=== PATIENT | female | born 1955 | race African-American/Black ===

== ENCOUNTER 2024-09-09 13:32 | Emergency (ER) | payer MEDICARE, MEDICAID ==
[~2024-09-09] VITALS: Ht 157.5 cm; Wt 51.7 kg
[~2024-09-09 13:32] MED LIST: PHEN100C
--- NOTE | 2024-09-09 14:08 | ED.PDOC ---
History of Present Illness(SKN HPI Comments 68y F who presents to the ED via EMS for chief complaint of rash. -pt states she has been having rash on the L side of her chest with associated rash spreading to the L arm since last night PM -pt states the area of rash is itchy but otherwise denies shortness of breath, chest pain, diaphoresis, palpitations or any associated symptoms -pt otherwise able to speak in full sentences and no noted respiratory distress -pt otherwise denies any other symptoms at this time PMH: HTN, COPD on 02 ,ESRD on dialysis PSH: denies allergies: nkda medications: unknown social history: denies EToH use, active tobacco use, denies drug use. HPI: Poor Historian. REVIEW OF SYSTEMS: CONSTITUTIONAL: Denies acute: fever, diaphoresis, chills, generalized weakness. HEAD: Denies acute: headache, photophobia Eyes: Denies acute: Double vision, vision loss, eye pain, eye discharge. EARS: Denies acute: tinnitus, hearing loss, ear discharge, ear pain, THROAT: Denies acute: sore throat, swelling, difficulty swallowing , pain with swallowing, change in voice. NECK: Denies acute: neck pain, neck swelling, stiff neck. HEART: Denies acute : chest pain, palpitations, LUNGS: Denies acute: SOB, wheezing, cough, hemoptysis ABDOMEN: Denies acute: abdominal pain, Nausea, Vomiting, diarrhea, melena , hematemesis, hematochezia SKIN: Denies acute: redness, EXTREMITIES: Denies acute: calf pain, numbness, tingling, weakness, denies pain in extremity. Denies acute: Low back pain. Neuro: Denies acute: focal neurological deficit, motor or sensory focal neurological deficit, tremors, seizure like activity, confusion, dizziness, change in mental status, loss of bowel or bladder function, cauda equina like symptoms. : Denies acute: dysuria, hematuria, flank pain, increase in urinary frequency. PSYCH: Denies acute: hallucination, suicidal ideation, homicidal ideation. FEMALE: Denies acute: abnormal vaginal bleeding, foul odor, unusual discharge. PHYSICAL EXAM: General: -----while---acute distress, awake and alert. Head: normocephalic, atraumatic. Neck: supple, trachea is midline, no swelling. Throat: Normal phonation. Eyes:, no erythema, no purulent discharge, no proptosis, no icterus. Heart: regular rate, regular rhythm, no significant murmur appreciated. Lungs: no apparent respiratory distress, Able to speak in full sentences. No wheezing, no rhonchi, no crackles. No stridors Clear to auscultation bilaterally. Abdomen: non tender to palpation, non distended, soft, no guarding, no rebound, + bowel sounds. Neuro: Awake, Alert, oriented to name, self, situation, follows commands GCS=15. Speech is normal. Skin: no petechia, no purpura, no cyanosis, non-pale, not jaundice. Evaluation of the lesions that she is concerned about. There is noted left chest wall lesions consistent with shingles that is tender to palpation. No purulent discharge. Some lesions are also present in the medial aspect of left upper extremity. Some of the lesions are scabbing. Lower extremities: --no - Pitting edema no deformity, no focal swelling, no calf TTP. Makes eye contact. moves all four extremities. Face: no apparent facial droop. Ambulating in the ED independently. No nystagmus. No nuchal rigidity, Kernig's sign, Brudzinski's sign, no meningeal signs. 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, Medications, Allergies Allergies: Coded Allergies: NO KNOWN ALLERGIES (Unverified , 08/05/11) Home Meds Active Scripts Valacyclovir HCl (Valacyclovir HCl) 1 Gm Tab, 1 GM PO TID for 7 Days, #21 TAB Prov:VENU MORSE DO 09/09/24 Reported Medications Phenytoin Sodium (Dilantin) 100 Mg Cap 08/05/11 Information Source: Patient, Emergency Med Personnel Mode of Arrival: EMS Brought in by: EMS Past Medical History PAST MEDICAL HISTORY: ESRD, Seizures Surgical History: Denies all surgeries NEUROLOGY TEACHER History: No Pertinent NEUROLOGY TEACHER History Family History Family History: No family hx of DM, No family hx of Heart charlene Social History Smoker: Less Than 1 Pack/Day Alcohol: Other Drugs: Denies Drug Use Lives In: Home Was a procedure done? Was a procedure done?: No Differential Diagnosis (INTG) Differential Diagnosis: Abscess, AIDS/HIV, Anthrax(Cutaneous), Atopic dermatitis, Candidiasis, Cellulitis, Contact Dermatitis, Drug Reaction, Erythema multiforme, Erysipelas, Gangrene, Herpes Zoster/Simplex, Hidradenitis suppurativa, Impetigo, Intertrigo, Lyme disease, Molluscum contagiosum, Osteomyelitis, Pediculosis (lice), Pityriasis rosea, Psoriasis, RMSF, Rosacea, Scabies, Scarlet Fever, Tinea, Urticaria, Varicella, Viral exanthema X-Ray, Labs, Meds, VS Vital Signs Date Time Temp Pulse Resp B/P (MAP) Pulse Ox O2 Delivery O2 Flow Rate FiO2 09/09/24 19:27 97.9 72 16 135/72 (93) 95 97.9 09/09/24 19:20 Nasal Cannula* 2 28 09/09/24 17:45 97.9 57 18 107/66 (80) 96 97.9 09/09/24 16:26 58 Lab Test 09/09/24 16:10 Range/Units White Blood Count 4.5 4.4-10.8 10^3/uL Red Blood Count 3.75 L 4.0-5.20 10^6/uL Hemoglobin 11.0 L 12.2-16.2 g/dL Hematocrit 32.4 L 36.0-46.0 % Mean Corpuscular Volume 86.3 80.0-100.0 fL Mean Corpuscular Hemoglobin 29.2 28.0-32.0 pg Mean Corpuscular Hemoglobin Concent 33.9 32.0-36.0 g/dL Red Cell Distribution Width 15.9 H 11.8-14.3 % Platelet Count 172 140-450 10^3/uL Mean Platelet Volume 8.6 6.9-10.8 fL Neutrophils (%) (Auto) 52.5 37.0-80.0 % Lymphocytes (%) (Auto) 23.2 10.0-50.0 % Monocytes (%) (Auto) 14.2 H 0.0-12.0 % Eosinophils (%) (Auto) 8.3 H 0.0-7.0 % Basophils (%) (Auto) 1.8 0.0-2.0 % Neutrophils # (Auto) 2.4 1.6-8.6 10 ^3/uL Lymphocytes # (Auto) 1.1 0.4-5.4 10 ^3/uL Monocytes # (Auto) 0.6 0-1.3 10 ^3/uL Eosinophils # (Auto) 0.4 0-0.8 10 ^3/uL Basophils # (Auto) 0.1 0-0.2 10 ^3/uL Nucleated Red Blood Cells 0.6 % Erythrocyte Sedimentation Rate 72 H 0-20 mm/hr Sodium Level 136 136-145 mmol/L Potassium Level 3.7 3.5-5.1 mmol/L Chloride Level 92 L 98-107 mmol/L Carbon Dioxide Level 34 H 20-31 mmol/L Anion Gap 10 5-15 Blood Urea Nitrogen 22 9-23 mg/dL Creatinine 6.14 H 0.550-1.02 mg/dL Glomerular Filtration Rate Calc 7 >90 mL/min BUN/Creatinine Ratio 3.6 L 10.0-20.0 Serum Glucose 86 74-106 mg/dL Lactic Acid Level 0.8 0.4-2.0 mmol/L Calcium Level 10.3 8.7-10.4 mg/dL Total Bilirubin 0.5 0.2-1.0 mg/dL Aspartate Amino Transferase (AST) 76 H 13-40 U/L Alanine Aminotransferase (ALT) 43 H 7-40 U/L Alkaline Phosphatase 177 H 46-116 U/L C-Reactive Protein High Sensitivity 0.69 <1.0 mg/dL Total Protein 9.5 H 5.7-8.2 g/dL Albumin 4.1 3.2-4.8 g/dL Time of 1ST Reevaluation: 16:43 (All labs are still pending. Patient was a hard stick.) Reevaluation 1ST: Unchanged Patient Education/Counseling: Diagnosis, Treatment Family Education/Counseling: No Family Present Comments Patient presented with the above HPI.----rash--workup was initiated. patient was found with the above mentioned diagnosis. the following medications were ordered: please refer to order lists of meds and tests obtained by myself Dr. Morse. Patient ED course and VS have been stabilized. Patient has been reassessed in the ED and remained in a stable condition. Pertinent incidental findings were discussed with the patient and/or family. Patient/family voices understanding and is agreeable with plan. Patient has been observed in the ED adequate length of time to insure improvement/stability. Escalation of care considered: Consideration of escalation to observation or admission Patient was DISCHARGED home in a stable condition. All the reports of any imaging studies that were ordered by myself were reviewed by myself. Departure 1 Departure Time of Disposition: 17:16 Impression: Primary Impression: Shingles Additional Impression: ESRD on dialysis Disposition: HOME / SELF CARE / HOMELESS Condition: Stable Additional Instructions: Additional instructions: You MUST follow-up with your primary care/family doctor in 1 to 2 days. If you are unable to see your primary care/family doctor, please return to our emergency room for re-assessment and re-evaluation in 1 to 2 days. Return to the emergency room here in our facility or to the nearest ER [facility] if your symptoms change or worsen. CONSULTATIONS: you MUST Follow-up for consultation as soon as possible with: dermatology in 1-2 days. Please call for appointment You MUST call the consultants office yourself to make an appointment. You may need to arrange that through your insurance and/or your primary/family doctor. If you are unable to see the organizational consultant in 1 to 2 days, you must return to our emergency room (or any other ER of your choice) for re-assessment and re-evalu ation. Adequate fluid hydration. You are contagious. Please exercise caution. Keep the scabs and lesions covered at all times. e-Prescriptions Valacyclovir HCl (Valacyclovir HCl) 1 Gm Tab 1 GM PO TID for 7 Days, #21 TAB Prov: VENU MORSE DO 09/09/24 Discharged With: Self Critical Care Note Critical Care Time?: No I personally scribed for VENU MORSE DO ([email or web address]) on 09/09/24 at 14:08. Electronically submitted by Davonte SHEN). VENU MORSE DO September 09, 2024 14:08
[2024-09-09 16:21] LABS: Basophils # (auto) 0.1 10 ^3/uL (0-0.2); Basophils % (auto) 1.8 % (0.0-2.0); Eosinophils # (auto) 0.4 10 ^3/uL (0-0.8); Eosinophils % (auto) 8.3 % (0.0-7.0); Hematocrit 32.4 % (36.0-46.0); Lymphocytes # (auto) 1.1 10 ^3/uL (0.4-5.4); Lymphocytes % (auto) 23.2 % (10.0-50.0); Mean Corpuscular Hemoglobin 29.2 pg (28.0-32.0); Mean Corpuscular Hgb Conc. 33.9 g/dL (32.0-36.0); Mean Corpuscular Volume 86.3 fL (80.0-100.0); Monocytes # (auto) 0.6 10 ^3/uL (0-1.3); Monocytes % (auto) 14.2 % (0.0-12.0); Neutrophils # (auto) 2.4 10 ^3/uL (1.6-8.6); Neutrophils % (auto) 52.5 % (37.0-80.0); Nucleated Red Blood Cells % 0.6 %; Platelet Count (auto) 172 10^3/uL (140-450); Red Blood Cells 3.75 10^6/uL (4.0-5.20); Red Cell Distribution Width 15.9 % (11.8-14.3); White Blood Cell 4.5 10^3/uL (4.4-10.8)
[2024-09-09 16:39] LABS: Albumin 4.1 g/dL (3.2-4.8); Anion Gap 10 (5-15); BUN/Creatinine Ratio 3.6 (10.0-20.0); Blood Urea Nitrogen 22 mg/dL (9-23); CRP High Sensitivity 0.69 mg/dL (<1.0); Calcium 10.3 mg/dL (8.7-10.4); Glucose 86 mg/dL (74-106); Potassium 3.7 mmol/L (3.5-5.1)
[2024-09-09 16:40] LABS: Alanine Aminotransferase 43 U/L (7-40); Alkaline Phosphatase 177 U/L (46-116); Aspartate Aminotransferase 76 U/L (13-40); Bilirubin, Total 0.5 mg/dL (0.2-1.0); Carbon Dioxide 34 mmol/L (20-31); Chloride 92 mmol/L (98-107); Sodium 136 mmol/L (136-145); Total Protein 9.5 g/dL (5.7-8.2)
[2024-09-09 16:55] LABS: Erythrocyte Sedimentation Rate 72 mm/hr (0-20)
--- NOTE | 2024-09-09 18:28 | ECG ---
[facility] Test Date: 2024-09-09 Test Time: 16:14:14 Pat Name: SUNIL CHAVES Department: ED Room: Gender: F Shipwright Helper: PHILIPP : 1955 Requested By: VENU BETTENCOURT Order Number: [id number] Reading MD: Augustin Arauz Measurements Intervals [place] Rate: 58 P: 35 [place]: 168 QRS: 0 QRSD: 122 T: 0 QT: 525 QTc: 516 Interpretive Statements Sinus rhythm Probable left atrial enlargement Left ventricular hypertrophy Nonspecific T abnormalities, anterior leads Prolonged QT interval Electronically Signed On 09-10-2024 9:21:13 PDT by Augustin Arauz Please click the below link to view image of tracing.
[2024-09-09] MEDS ORDERED: VALA1TAB34 PO (19:06)
[2024-09-09 19:27] VITALS: BP 135/72; PULSE 72; RESP 16; TEMP 97.9; O2SAT 95
== END 2024-09-09 19:30 | disposition home or self-care (01) ==
LOC: EDBD 13:32 → ER 13:45
DX: I12.0 Hypertensive chronic kidney disease with stage 5 chronic kidney disease or end stage renal disease (principal); N18.6 End stage renal disease; B02.9 Zoster without complications; J44.9 Chronic obstructive pulmonary disease, unspecified; F17.210 Nicotine dependence, cigarettes, uncomplicated; Z79.624 Long term (current) use of inhibitors of nucleotide synthesis; Z99.2 Dependence on renal dialysis
CPT/HCPCS: 36415; 80053; 83605; 85025; 85652; 86141; 93005

== ENCOUNTER 2024-09-11 11:45 | Inpatient (IN) | payer MEDICARE, MEDICAID ==
[~2024-09-11] VITALS: Ht 162.6 cm; Wt 68.0 kg
[~2024-09-11 11:45] MED LIST changes: +VALA1TAB34 PO
--- NOTE | 2024-09-11 12:06 | ED.PDOC ---
Altered Mental Status HPI Comments 68 year old female JEAN-CLAUDE presents to the ED with chief complaint of ALOC. EMS reports that the patient was found by family this morning to be altered and having visual hallucinations, seeing people that aren't present. EMS relays that the last known well was last night. EMS states that the patient was seen on 09/09 for shingles of the left arm. EMS notes that patient has history of seizure with her taking her Keppra this morning. Patient reports that she may have had a seizure this morning and she is aware she had some hallucinations. Patient denies any fever, chills, chest pain, SOB, dizziness, headache, or head injury. Time Seen by MD: 11:57 Primary Care Provider: AMANDA Shepard Notes: Nurses Notes, Row Boss Hoeing Notes, Medications, Allergies Allergies: Coded Allergies: NO KNOWN ALLERGIES (Unverified , 08/05/11) Home Meds Active Scripts Valacyclovir HCl (Valacyclovir HCl) 1 Gm Tab, 1 GM PO TID for 7 Days, #21 TAB Prov:VENU BETTENCOURT DO 09/09/24 Reported Medications Phenytoin Sodium (Dilantin) 100 Mg Cap 08/05/11 Information Source: Patient, Emergency Med Personnel Mode of Arrival: EMS Severity: Moderate Timing: Hours Duration: Since onset Prehospital treatment: None Quality: Change in Behavior Recent: Other (Shingles) History of: Seizure Past Medical History PAST MEDICAL HISTORY: ESRD, HTN, Seizures Surgical History: Denies all surgeries 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 WRAPPING MACHINE 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 History: No Pertinent CANDLE WRAPPING MACHINE OPERATOR History Family History Family History: No family hx of DM, No family hx of Heart charlene Social History Smoker: Less Than 1 Pack/Day Alcohol: Other Drugs: Denies Drug Use Lives In: Home Constitutional: denies: chills, diaphoresis, fatigue, fever, malaise, sweats, weakness, others EENTM: denies: blurred vision, double vision, ear bleeding, ear discharge, ear drainage, ear pain, ear ringing, eye pain, eye redness, hearing loss, mouth pain, mouth swelling, nasal discharge, nose bleeding, nose congestion, nose pain , photophobia, tearing, throat pain, throat swelling, voice changes, others Respiratory: denies: cough, hemoptysis, orthopnea, SOB at rest, shortness of breath, SOB with excertion, stridor, wheezing, others Cardiovascular: denies: chest pain, dizzy spells, diaphoresis, Dyspnea on exertion, edema, irregular heart beat, left arm pain, lightheadedness, palpitations, PND, syncope, others Gastrointestinal: denies: abdomen distended, abdominal pain, blood streaked bowels, constipated, diarrhea, dysphagia, difficulty swallowing, hematemesis, melena, nausea, poor appetite, poor fluid intake, rectal bleeding, rectal pain, vomiting, others Genitourinary: denies: abnormal vagina bleeding, burning, dyspareunia, dysuria, flank pain, frequency, hematuria, incontinence, pain, , vagina discharge, urgency, others Neurological: denies: dizziness, fainting, headache, left sided numbness, left sided weakness, numbness, paresthesia, pre-existing deficit, right sided numbness, right sided weakness, seizure, speech problems, tingling, tremors, weakness, others Musculoskeletal: denies: back pain, gout, joint pain, joint swelling, muscle pain, muscle stiffness, neck pain, others Integumetry: denies: bruises, change in color, change in hair/nails, dryness, laceration, lesions, lumps, rash, wounds, others Allergic/Immunocompromised: denies: Difficulty Healing, Frequent Infections, Hives, Itching, others Hematologic/Lymphatic: denies: anemia, blood clots, easy bleeding, easy bruising, swollen glands, others Endocrine: denies: excessive hunger, excessive sweating, excessive thirst, excessive urination, flushing, intolerance to cold, intolerance to heat, unexplained weight gain, unexplained weight loss, others Psychiatric: reports: others (Hallucinations); denies: anxiety, bipolar disorder, depression, hopeless, panic disorder, schizophrenia, sleepless, suicidal All Other Systems: Reviewed and Negative Physical Exam General Appearance: No Apparent Distress, Normal HEENT: Normal ENT Inspection, Pharynx Normal, TMs Normal Neck: Full Range of Motion, Non-Tender, Normal, Normal Inspection Respiratory: Chest Non-Tender, Lungs Clear, No Accessory Muscle Use, No Res piratory Distress, Normal Breath Sounds Cardiovascular: No Edema, No JVD, No Murmur, No Gallop, Normal Peripheral Pulses, Regular Rate/Rhythm Breast Exam: Deferred Gastrointestinal: No Organomegaly, Non Tender, No Pulsatile Mass, Normal Bowel Sounds, Soft Genitalia: Deferred Pelvic: Deferred Rectal: Deferred Extremities: No calf tenderness, Normal capillary refill, Normal inspection, Normal range of motion, Non-tender, No pedal edema, Other (Right forearm intact AV Fistula) Musculoskeletal : Apperance: Normal Neurologic: Alert, miscellaneous machine operator II-XII nml as Tested, No Motor Deficits, Normal Affect, Normal Mood, No Sensory Deficits, Other (No Nuchal rigidity, Kernig and Brudzinski sign negative, no photophobia, no active hallucinations, A/O and cooperative, ) Cerebellar Function: Normal Reflexes: Normal Skin: Dry, Normal Color, Warm, Other (Crop of blisters noted to extensor surface of left forearm) Lymphatic: No Adenopathy Was a procedure done? Was a procedure done?: No Differential Diagnosis (ALOC) Differential Diagnosis: Dehydration, Hypoglycemia, DKA, Encephalopathy, Meningitis, Sepsis, Hypoxemia, Seizure, CVA, Mass Lesion, SAH, Drug Overdose, ETOH Intoxication, Renal Failure, Other (postictal state) X-Ray, Labs, Meds, VS Vital Signs Date Time Temp Pulse Resp B/P (MAP) Pulse Ox O2 Delivery O2 Flow Rate FiO2 09/11/24 12:10 76 09/11/24 12:10 98.9 82 26 178/102 (127) 100 98.9 Lab Test 09/11/24 13:35 Range/Units White Blood Count 6.0 # 4.4-10.8 10^3/uL Red Blood Count 3.41 L 4.0-5.20 10^6/uL Hemoglobin 10.2 L 12.2-16.2 g/dL Hematocrit 29.5 L 36.0-46.0 % Mean Corpuscular Volume 86.6 80.0-100.0 fL Mean Corpuscular Hemoglobin 29.9 28.0-32.0 pg Mean Corpuscular Hemoglobin Concent 34.6 32.0-36.0 g/dL Red Cell Distribution Width 16.2 H 11.8-14.3 % Platelet Count 75 L 140-450 10^3/uL Mean Platelet Volume 8.4 6.9-10.8 fL Neutrophils (%) (Auto) 60.7 37.0-80.0 % Lymphocytes (%) (Auto) 22.1 10.0-50.0 % Monocytes (%) (Auto) 12.3 H 0.0-12.0 % Eosinophils (%) (Auto) 3.7 0.0-7.0 % Basophils (%) (Auto) 1.2 0.0-2.0 % Neutrophils # (Auto) 3.6 1.6-8.6 10 ^3/uL Lymphocytes # (Auto) 1.3 0.4-5.4 10 ^3/uL Monocytes # (Auto) 0.7 0-1.3 10 ^3/uL Eosinophils # (Auto) 0.2 0-0.8 10 ^3/uL Basophils # (Auto) 0.1 0-0.2 10 ^3/uL Nucleated Red Blood Cells 0.5 % Sodium Level 135 L 136-145 mmol/L Potassium Level 3.6 3.5-5.1 mmol/L Chloride Level 96 L 98-107 mmol/L Carbon Dioxide Level 30 20-31 mmol/L Anion Gap 9 5-15 Blood Urea Nitrogen 20 9-23 mg/dL Creatinine 5.37 H 0.550-1.02 mg/dL Glomerular Filtration Rate Calc 8 >90 mL/min BUN/Creatinine Ratio 3.7 L 10.0-20.0 Serum Glucose 107 H 74-106 mg/dL Calcium Level 9.8 8.7-10.4 mg/dL Total Bilirubin 0.6 0.2-1.0 mg/dL Aspartate Amino Transferase (AST) 76 H 13-40 U/L Alanine Aminotransferase (ALT) 39 7-40 U/L Alkaline Phosphatase 167 H 46-116 U/L Troponin I High Sensitivity 24 </=34 ng/L Total Protein 9.0 H 5.7-8.2 g/dL Albumin 3.9 3.2-4.8 g/dL Time of 1ST Reevaluation: 12:57 Reevaluation 1ST: Unchanged Patient Education/Counseling: Diagnosis, Treatment, Prognosis, Need For Follow Up Family Education/Counseling: No Family Present Additional Information Previous visits: 09/09/24 for shingles The following tests were ordered, and results were reviewed by me: CBC, CMP, UA, Chest XR, Head CT, UDS, Accucheck, EKG, Troponin Additional Information was gathered from interviewing the following independent historians: EMS I reviewed and agreed with the following test results read by other providers: Chest XR, Head CT I discussed treatment and results with medical personnel and: patient Comprehensive systems review obtained and negative except for what is stated in the HPI. pt does not have meningismus, and ct is unremarkable. she is not hypoglycemic. pt may have had a seizure with postictal state. although she is improved, she is still mildly confused. she will be admitted for further monitoring for the cause of the change of mental state Departure 1 Departure Time of Disposition: 14:46 Impression: Primary Impression: Metabolic encephalopathy Additional Impression: ESRF (end stage renal failure) Disposition: ADMITTED INPATIENT Admit to: Med Surg Condition: Serious Discharged With: Self Critical Care Note Critical Care Time?: Yes (55 min-critical care time only) Critical care comment: Due to concerns for patient�s condition deteriorating, the care required my highest level of attention and readiness to intervene. I assessed the patient, reviewed the medical records, ordered the appropriate tests and treatments, then reassessed for results and responsiveness. I communicated with medical personnel and consultants and formulated a plan of care. Total critical care time excludes any procedures Stability Stability form required: No Heart Score Heart Score: Heart Score Response (Comments) Value History N/A 0 EKG N/A 0 Age N/A 0 Risk Factors N/A 0 Troponin N/A 0 Total 0 I personally scribed for MARK LOWERY MD ([email or web address]) on 09/11/24 at 12:06. Electronically submitted by Cristian Carbajal ([email or web address]). MARK LOWERY MD September 11, 2024 12:06
--- NOTE | 2024-09-11 12:30 | DVH ---
CHEST RADIOGRAPH Indication: altered Technique: Single frontal view of the chest was obtained COMPARISON: None FINDINGS: Lines and Tubes: None Lungs: Increased interstitial markings both lung bases Pulmonary vascular redistribution Pleura: No effusion. No pneumothorax. Cardiomediastinal contours: Moderately severe cardiomegaly Bones: Unremarkable IMPRESSION: 1. Moderately severe cardiomegaly 2. Moderate bilateral interstitial changes Pulmonary vascular redistribution
--- NOTE | 2024-09-11 13:02 | DVH ---
EXAM: CT HEAD WITHOUT CONTRAST INDICATION: altered TECHNIQUE: CT of the head without intravenous contrast. Radiation Dose : 1. Head: CT Dose: CTDI volume is 50.87 mGy. Dose-length product is 900.9 mGy*cm The dose indicators for CT are the volume Computed Tomography (CT) Dose Index (CTDIvol) and the Dose Length Product (DLP), and are measured in units of mGy and mGy-cm, respectively. These indicators are not patient dose, but values generated from the CT scanner acquisition factors. The report includes radiation exposure data for exposures received during this examination. COMPARISON: None FINDINGS: Moderate cerebellar atrophy relative to the supratentorial structures. Findings may be related to Dil antin, alcohol or other etiologies. There is no evidence of acute intracranial hemorrhage, extra-axial collection, mass effect, midline s hift, herniation or hydrocephalus. The ventricles, sulci and cisterns are age appropriate. The perez-white differentiation is intact. Patchy periventricular and subcortical white matter hypoattenuation is nonspecific but may be related to small vessel ischemic disease. The visualized paranasal sinuses and mastoid air cells are clear. The surrounding soft tissues and osseous structures are unremarkable. IMPRESSION: 1. Moderate cerebellar atrophy. Radiation optimization: All CT scans at this facility use at least one of these dose optimization juan hniques: automated exposure control mA and/or kV adjustment per patient size (includes targeted exam s where dose is matched to clinical indication) or iterative reconstruction.
[2024-09-11 13:44] LABS: Basophils # (auto) 0.1 10 ^3/uL (0-0.2); Basophils % (auto) 1.2 % (0.0-2.0); Eosinophils # (auto) 0.2 10 ^3/uL (0-0.8); Eosinophils % (auto) 3.7 % (0.0-7.0); Hematocrit 29.5 % (36.0-46.0); Hemoglobin 10.2 g/dL (12.2-16.2); Lymphocytes # (auto) 1.3 10 ^3/uL (0.4-5.4); Lymphocytes % (auto) 22.1 % (10.0-50.0); Mean Corpuscular Hemoglobin 29.9 pg (28.0-32.0); Mean Corpuscular Hgb Conc. 34.6 g/dL (32.0-36.0); Mean Corpuscular Volume 86.6 fL (80.0-100.0); Monocytes # (auto) 0.7 10 ^3/uL (0-1.3); Monocytes % (auto) 12.3 % (0.0-12.0); Neutrophils # (auto) 3.6 10 ^3/uL (1.6-8.6); Neutrophils % (auto) 60.7 % (37.0-80.0); Nucleated Red Blood Cells % 0.5 %; Platelet Count (auto) 75 10^3/uL (140-450); Red Blood Cells 3.41 10^6/uL (4.0-5.20); Red Cell Distribution Width 16.2 % (11.8-14.3)
[2024-09-11 13:59] LABS: Alanine Aminotransferase 39 U/L (7-40); Albumin 3.9 g/dL (3.2-4.8); Anion Gap 9 (5-15); BUN/Creatinine Ratio 3.7 (10.0-20.0); Bilirubin, Total 0.6 mg/dL (0.2-1.0); Blood Urea Nitrogen 20 mg/dL (9-23); Calcium 9.8 mg/dL (8.7-10.4); Carbon Dioxide 30 mmol/L (20-31); Potassium 3.6 mmol/L (3.5-5.1)
[2024-09-11 14:00] LABS: Alkaline Phosphatase 167 U/L (46-116); Aspartate Aminotransferase 76 U/L (13-40); Chloride 96 mmol/L (98-107); Glucose 107 mg/dL (74-106); Sodium 135 mmol/L (136-145)
--- NOTE | 2024-09-11 18:07 | ECG ---
[facility] Test Date: 2024-09-11 Test Time: 12:10:05 Pat Name: SUNIL CHAVES Department: ED Room: [address] [place] [address] Gender: F Tufter Hand: ER : 1955 Requested By: MARK LOWERY Order Number: [id number] Reading MD: Augustin Arauz Measurements Intervals [place] Rate: 76 P: 24 [place]: 165 QRS: -5 QRSD: 154 T: 16 QT: 449 QTc: 505 Interpretive Statements Sinus rhythm Probable left atrial enlargement Left ventricular hypertrophy Prolonged QT interval Electronically Signed On 09-16-2024 20:29:21 PDT by Augustin Arauz Please click the below link to view image of tracing.
[2024-09-11 19:21] VITALS: PULSE 83; RESP 23; O2SAT 93
[2024-09-11] MEDS ORDERED: ONDANSETRON HCL 4 MG/2 ML VIAL IV PRN (19:45)
[2024-09-11] MEDS ORDERED: DOCUSATE SOD 100 MG CAP PO PRN (19:45)
[2024-09-11] MEDS ORDERED: ACETAMINOPHEN 325 MG TAB PO PRN (19:45)
[2024-09-11] MEDS ORDERED: MORPHINE SULFATE INJ 2 MG/ml SYRG IV PRN (21:15)
[2024-09-11] MEDS ORDERED: NITROGLYCERIN 0.4 MG SL TAB SL PRN (21:15)
--- NOTE | 2024-09-11 21:15 | DVHHP2 ---
History of Present Illness Reason for Visit: Metabolic encephalopathy History of Present Illness The patient is a 68-year-old female with past medical history of end-stage renal disease, hypertension, and seizures who presented to [facility] ED for evaluation of altered level of consciousness. As reported by EMS, patient was found by family altered and having visual hallucinations; seen people that are not present. Patient reports that she may have had a seizure this morning and she is aware she had some hallucinations. Patient was seen and evaluated in the ED, laboratory data shows WBC 6.0, hemoglobin 10.2, hematocrit 29.5, platelets 83947, sodium 135, potassium 3.6, BUN 20, creatinine 5.37, glucose 107, AST 76, ALT 39, troponin 24, protein 9.0, blood pressure 188/96 trending down to 131/83, heart rate 77, temperature 97.6� F, O2 saturation 96% on oxygen. Please see medication orders section in the computer. On my assessment, patient remains altered, no dizziness, no palpitation, no shortness a breath, no nausea, no vomiting, no fever, no chills. Patient was admitted for further evaluation and medical management. Past Medical History ESRD, HTN, Seizures Past Surgical History Denies all surgeries Family History Reviewed, noncontributory to the management of this case. Past Social History The patient lives at home, denies smoking, alcohol or illicit drugs abuse. Review of Systems Constitutional: Yes: Weakness; No: Fever, Chills, Sweats, Malaise, Other Eyes: No: Pain, Vision change, Conjunctivae inflammation, Eyelid inflammation, Other, Redness ENT: No: Ear pain, Ear discharge, Nose pain, Nose discharge, Nose congestion, Mouth pain, Mouth swelling, Throat pain, Throat swelling, Other Respiratory: No: Cough, Dry, Shortness of breath, SOB with excertion, Wheezing, Hemoptysis, Pleuritic Pain, Sputum, Wheezing, Other Cardiovascular: No: Chest Pain, Palpitations, Orthopnea, Paroxysmal Noc. Dyspnea, Edema, Lt Headedness, Other Gastrointestinal: No: Nausea, Vomiting, Abdominal Pain, Diarrhea, Constipation, Melena, Hematochezia, Other Genitourinary: No Dysuria, No Frequency, No Incontinence, No Hematuria, No Retention, No Other Musculoskeletal: No: other, neck pain, shoulder pain, arm pain, back pain, hand pain, leg pain, foot pain Skin: No: Rash, Lesions, Jaundice, Bruising, Other Neurological: Confusion; No: Weakness, Numbness, Incoordination, Change in speech, Seizures, Other Allergies: Coded Allergies: NO KNOWN ALLERGIES (Unverified , 08/05/11) Medications Current Medications Medications Dose Ordered Sig/Maru Route Start Time Stop Time Status Last Admin Dose Admin Phenytoin Sodium 100 mg Q8HR PO 09/11/24 22:00 Hydralazine HCl 10 mg Q6HP PRN IV 09/11/24 19:45 Sodium Chloride 1,000 ml @ 60 mls/hr [id number] IV 09/11/24 19:45 Acetaminophen/ Hydrocodone Bitart 1 tab Q4HP PRN PO 09/11/24 19:45 Ondansetron HCl 4 mg Q4HP PRN IV 09/11/24 19:45 Docusate Sodium 100 mg BIDPRN PRN PO 09/11/24 19:45 Acetaminophen 650 mg Q6HP PRN PO 09/11/24 19:45 Exam Vital Signs Vital Signs Date Time Temp Pulse Resp B/P (MAP) Pulse Ox O2 Delivery O2 Flow Rate FiO2 09/11/24 19:21 97.6 83 23 169/76 (107) 93 97.6 09/11/24 15:32 Nasal Cannula* 3 32 General Appearance: Alert, Oriented X3, Cooperative, No acute distress HEENT: Atraumatic, PERRLA, EOMI, Mucous membr. moist/pink Respiratory: Clear to auscultation, Normal air movement Cardiovascular: Regular rate, Normal S1, Normal S2, No murmurs Abdominal: Normal bowel sounds, Soft, No tenderness, No hepatospenomegaly, No masses Extremities: No clubbing, No cyanosis, No edema, Normal pulses, No tenderness/swelling Skin: No rashes, No breakdown, No significant lesion Neuro: Normal tone, Sensation intact, Cranial nerves 3-12 NL, Reflexes 2+, Other (Weakness) Psych/Mental Status: Mood NL, Other (Altered mental status) Labs/Xrays Labs Test 09/11/24 18:26 09/11/24 13:35 Range/Units Troponin I High Sensitivity 24 </=34 ng/L White Blood Count 6.0 # 4.4-10.8 10^3/uL Red Blood Count 3.41 L 4.0-5.20 10^6/uL Hemoglobin 10.2 L 12.2-16.2 g/dL Hematocrit 29.5 L 36.0-46.0 % Mean Corpuscular Volume 86.6 80.0-100.0 fL Mean Corpuscular Hemoglobin 29.9 28.0-32.0 pg Mean Corpuscular Hemoglobin Concent 34.6 32.0-36.0 g/dL Red Cell Distribution Width 16.2 H 11.8-14.3 % Platelet Count 75 L 140-450 10^3/uL Mean Platelet Volume 8.4 6.9-10.8 fL Neutrophils (%) (Auto) 60.7 37.0-80.0 % Lymphocytes (%) (Auto) 22.1 10.0-50.0 % Monocytes (%) (Auto) 12.3 H 0.0-12.0 % Eosinophils (%) (Auto) 3.7 0.0-7.0 % Basophils (%) (Auto) 1.2 0.0-2.0 % Neutrophils # (Auto) 3.6 1.6-8.6 10 ^3/uL Lymphocytes # (Auto) 1.3 0.4-5.4 10 ^3/uL Monocytes # (Auto) 0.7 0-1.3 10 ^3/uL Eosinophils # (Auto) 0.2 0-0.8 10 ^3/uL Basophils # (Auto) 0.1 0-0.2 10 ^3/uL Nucleated Red Blood Cells 0.5 % Sodium Level 135 L 136-145 mmol/L Potassium Level 3.6 3.5-5.1 mmol/L Chloride Level 96 L 98-107 mmol/L Carbon Dioxide Level 30 20-31 mmol/L Anion Gap 9 5-15 Blood Urea Nitrogen 20 9-23 mg/dL Creatinine 5.37 H 0.550-1.02 mg/dL Glomerular Filtration Rate Calc 8 >90 mL/min BUN/Creatinine Ratio 3.7 L 10.0-20.0 Serum Glucose 107 H 74-106 mg/dL Calcium Level 9.8 8.7-10.4 mg/dL Total Bilirubin 0.6 0.2-1.0 mg/dL Aspartate Amino Transferase (AST) 76 H 13-40 U/L Alanine Aminotransferase (ALT) 39 7-40 U/L Alkaline Phosphatase 167 H 46-116 U/L Total Protein 9.0 H 5.7-8.2 g/dL Albumin 3.9 3.2-4.8 g/dL PATIENT: SUNIL CHAVES ACCT: [id number] UNIT: [id number] : 1955 LOC: ER ROOM / BED: / AGE / SEX: 68 / F ADM STATUS: REG ER SERVICE 1159 ORDERING PHYSICIAN: MARK LOWERY MD PROCEDURE(s): HWOCT - HEAD WITHOUT CONTRAST REASON: altered ORDER NUMBER(s): [id number], ACCESSION NUMBER(s): [id number] EXAM: CT HEAD WITHOUT CONTRAST INDICATION: altered TECHNIQUE: CT of the head without intravenous contrast. Radiation Dose : 1. Head: CT Dose: CTDI volume is 50.87 mGy. Dose-length product is 900.9 mGy*cm The dose indicators for CT are the volume Computed Tomography (CT) Dose Index (CTDIvol) and the Dose Length Product (DLP), and are measured in units of mGy and mGy-cm, respectively. These indicators are not patient dose, but values generated from the CT scanner acquisition factors. The report includes radiation exposure data for exposures received during this examination. COMPARISON: None FINDINGS: Moderate cerebellar atrophy relative to the supratentorial structures. Findings may be related to Dilantin, alcohol or other etiologies. There is no evidence of acute intracranial hemorrhage, extra-axial collection, mass effect, midline shift, herniation or hydrocephalus. The ventricles, sulci and cisterns are age appropriate. The perez-white differentiation is intact. Patchy periventricular and subcortical white matter hypoattenuation is nonspecific but may be related to small vessel ischemic disease. The visualized paranasal sinuses and mastoid air cells are clear. The surrounding soft tissues and osseous structures are unremarkable. IMPRESSION: 1. Moderate cerebellar atrophy. ORDERING PHYSICIAN: MARK LOWERY MD PROCEDURE(s): CXRP - CHEST PORTABLE REASON: altered ORDER NUMBER(s): [id number], ACCESSION NUMBER(s): [id number] CHEST RADIOGRAPH Indication: altered Technique: Single frontal view of the chest was obtained COMPARISON: None FINDINGS: Lines and Tubes: None Lungs: Increased interstitial markings both lung bases Pulmonary vascular redistribution Pleura: No effusion. No pneumothorax. Cardiomediastinal contours: Moderately severe cardiomegaly Bones: Unremarkable IMPRESSION: 1. Moderately severe cardiomegaly 2. Moderate bilateral interstitial changes Pulmonary vascular redistribution Assessment/Plan Assessment/Plan Metabolic encephalopathy ESRD (end stage renal failure) Generalized weakness Plan 1. Admit to telemetry unit 2. Breathing treatment 3. Pain control management 4. Management of fluids and electrolytes 5. Consultation for hospitalist/nephrology 6. Diagnostic tests chest x-ray 7. DVT prophylaxis on SCDs 8. Repeat labs CBC, CMP in a.m. 9. Continue with current medical management 10. Treatment plan discussed with patient and RN. Patient verbalized understanding. Plan discussed with: Patient, Other (RN) My Orders Orders - FAZAL MARCOS DNP Procedure Category Date Status Time Phenytoin Capsule PHA 09/11/24 In Process (Dilantin Capsule) 22:00 Hydralazine Injection PHA 09/11/24 In Process (Apresoline Inject 19:45 *[facility] CONS 09/11/24 Transmitted -[place] 19:40 Allergies MELLY 09/11/24 In Process 19:40 Code Status CODE 09/11/24 Transmitted 19:40 Sodium Chloride 0.9% PHA 09/11/24 In Process 19:45 Oxygen Per Hour RT 09/11/24 Transmitted 19:40 Hydrocodone-Acet PHA 09/11/24 In Process 5/325mg Tab (Stacy 19:45 Ondansetron Hcl PHA 09/11/24 In Process (Zofran) 19:45 Docusate Sodium PHA 09/11/24 In Process Capsule (Colace 19:45 Fall Risk Precautions MELLY 09/11/[address] 19:40 Complete Blood Count LAB 09/12/24 Verified 04:00 Comprehensive LAB 09/12/24 Verified Metabolic Panel 04:00 Cardiac DIET 09/12/24 Transmitted Diet-2gna,Lofat,Lochol Breakfast Condition: Serious MELLY 09/11/24 In Process 19:40 Acetaminophen Tablet PHA 09/11/24 In Process (Tylenol Tablet) 19:45 Sequential MELLY 09/11/24 In Process Compression Device Admit ADMIT 09/11/24 Verified 21:14 Nitroglycerin PHA 09/11/24 Verified Sublingual (Ntrostat 21:15 Morphine Sulfate PHA 09/11/24 Verified Injection 21:15 Notify Of Changes MELLY 09/11/24 Verified From Base 21:14 Finished Goods Inspector For MELLY 09/11/24 Verified 24 Hours 21:14 Emergency Dysrhythmia [facility] 09/11/24 Verified Protocol 21:14 Rhythm Strips Once [facility] 09/11/24 Verified Every Shift 21:14 Oxygen By Nasal RT 09/11/24 Verified Cannula 21:14 Problem List: (1) Metabolic encephalopathy (2) ESRD on dialysis (3) Generalized weakness Date of Service: September 11, 2024 Billing Provider: FAZAL MARCOS DNP Common Visit Codes: [id number] INP/OBS CARE (HIGH) FAZAL MARCOS DNP September 11, 2024 21:15
[2024-09-11] MEDS: HALOPERIDOL LACTATE 5 MG/ML INJ VIAL IM ONE (21:16)
[2024-09-11] MEDS: HALOPERIDOL LACTATE 5 MG/ML INJ VIAL ONE (21:16)
[2024-09-11] MEDS ORDERED: LORazepam 0.5 MG TAB PO PRN (22:00)
[2024-09-11] MEDS ORDERED: PHENYTOIN SODIUM 100 MG CAP PO SCH (22:00)
[2024-09-11] MEDS: LORazepam 2MG/ML-1ML VIAL IM ONE (22:08)
[2024-09-11] MEDS: hydrALAZINE HCL 20 MG/ML VL IV PRN (23:05)
[2024-09-11] MEDS: PHENYTOIN SODIUM 50 MG/ML 2ML VIAL IV SCH (23:22)
[2024-09-11] MEDS: SODIUM CHLORIDE 0.9% 1,000 ML IV SCH (23:22)
[2024-09-12 06:14] LABS: Basophils # (auto) 0 10 ^3/uL (0-0.2); Basophils % (auto) 0.9 % (0.0-2.0); Eosinophils # (auto) 0.1 10 ^3/uL (0-0.8); Eosinophils % (auto) 2.1 % (0.0-7.0); Hematocrit 29.1 % (36.0-46.0); Hemoglobin 9.9 g/dL (12.2-16.2); Lymphocytes # (auto) 0.5 10 ^3/uL (0.4-5.4); Lymphocytes % (auto) 11.7 % (10.0-50.0); Mean Corpuscular Hemoglobin 29.6 pg (28.0-32.0); Mean Corpuscular Hgb Conc. 34.2 g/dL (32.0-36.0); Mean Corpuscular Volume 86.7 fL (80.0-100.0); Monocytes # (auto) 0.4 10 ^3/uL (0-1.3); Monocytes % (auto) 9.8 % (0.0-12.0); Neutrophils % (auto) 75.5 % (37.0-80.0); Nucleated Red Blood Cells % 0.5 %; Platelet Count (auto) 160 10^3/uL (140-450); Red Blood Cells 3.36 10^6/uL (4.0-5.20)
[2024-09-12 06:31] LABS: Alanine Aminotransferase 30 U/L (7-40); Albumin 3.4 g/dL (3.2-4.8); Anion Gap 10 (5-15); BUN/Creatinine Ratio 4.4 (10.0-20.0); Calcium 9.7 mg/dL (8.7-10.4); Carbon Dioxide 30 mmol/L (20-31); Glucose 101 mg/dL (74-106); Sodium 138 mmol/L (136-145); Total Protein 8.1 g/dL (5.7-8.2)
[2024-09-12 06:32] LABS: Alkaline Phosphatase 143 U/L (46-116); Aspartate Aminotransferase 67 U/L (13-40); Bilirubin, Total 0.6 mg/dL (0.2-1.0); Blood Urea Nitrogen 28 mg/dL (9-23); Chloride 98 mmol/L (98-107); Potassium 3.3 mmol/L (3.5-5.1)
[2024-09-12 09:50] LABS: Base Excess 6.7 mmol/L (-2.0-3.0)
--- NOTE | 2024-09-12 13:30 | DVHINCON2 ---
Date of service: September 12, 2024 Referring Physician Zehra Michelle Reason for Consultation Dialysis History of Present Illness 68 Y/O F with history of ESRD on HD via Rt arm AVG at [facility] on MWF schedule, HTN, Seizure, shingles, Anemia of CKD and secondary hyperparathyroidism presented with AMS. Patient is hypothermic. she is hypertensive with SBP in 170 - 180s mmHg. K is 3.3 mmol/l. She had her last dialysis at [facility] on Friday09/10/24. Nephrology consulted for dialysis maintenance. Past Medical History ESRD HTN Anemia Seizure Past Surgical History AVG creation Allergies: Coded Allergies: NO KNOWN ALLERGIES (Unverified , 08/05/11) Home Meds Active Scripts Valacyclovir HCl (Valacyclovir HCl) 1 Gm Tab, 1 GM PO TID for 7 Days, #21 TAB Prov:SGVENUWill Elizabeth DO 09/09/24 Reported Medications Phenytoin Sodium (Dilantin) 100 Mg Cap 08/05/11 Current Medications Current Medications Medications (Trade) Dose Ordered Sig/Maru Route PRN Reason Start Time Stop Time Status Last Admin Phenytoin Sodium (Dilantin Capsule) 100 mg Q8HR PO 09/11/24 22:00 09/11/24 21:56 DC Hydralazine HCl (Apresoline Injection) 10 mg Q6HP PRN IV SBP>150 09/11/24 19:45 09/12/24 09:06 Sodium Chloride 1,000 ml @ 60 mls/hr [id number] IV 09/11/24 19:45 09/11/24 23:22 Acetaminophen/ Hydrocodone Bitart (Marcus 5/325MG Tab) 1 tab Q4HP PRN PO MODERATE PAIN (4-6 PAIN SCALE) 09/11/24 19:45 Ondansetron HCl (Zofran) 4 mg Q4HP PRN IV NAUSEA / VOMITING 09/11/24 19:45 Docusate Sodium (Colace Capsule) 100 mg BIDPRN PRN PO FOR CONSTIPATION 09/11/24 19:45 Acetaminophen (Tylenol Tablet) 650 mg Q6HP PRN PO PAIN SCALE 1-3 OR TEMP>100.4 09/11/24 19:45 Nitroglycerin (Ntrostat Sublingual) 0.4 mg Q5MINP PRN SL FOR CHEST PAIN 09/11/24 21:15 Morphine Sulfate 2 mg Q30M PRN IV FOR CHEST PAIN 09/11/24 21:15 Phenytoin Sodium 100 mg Q8HR IV 09/11/24 22:00 09/12/24 05:40 Lorazepam (Ativan Tablet) 1 mg Q2HPRN PRN PO SEIZURES 09/11/24 22:00 Cancel Lorazepam (Ativan Inj) 1 mg Q2HPRN PRN IV SEIZURES 09/11/24 22:00 Review of Systems as per HPI, all other systems were reviewed and are negative. H&P Exam Vital Signs/I&O Vital Sign Date Time Temp Pulse Resp B/P (MAP) Pulse Ox O2 Delivery O2 Flow Rate FiO2 09/12/24 12:00 60 09/12/24 12:00 95.4 15 172/89 (116) 100 95.4 09/12/24 08:25 Nasal Cannula* 2 28 l Intake and Output 09/11/24 09/12/24 19:00 07:00 Intake Total 240 ml Balance 240 ml Intake IV Total 240 ml Physical Exam Gen: obtunded HEENT: NC,AT Lungs: Crackles lung bases Cardiac: RRR, no murmur Abd: soft, no tenderness Ext: no edema + Rt arm AVG Labs/Diagnostic Data Labs/Diagnostic Data Laboratory Tests Test 09/12/24 09:46 09/12/24 08:32 09/12/24 06:04 09/11/24 18:26 Range/Units Blood Gas Specimen Type Arterial Blood Gas Sample Site Right radial Blood Gas Patient Temperature 37.0 Arterial Blood Date Drawn [id number] Arterial Blood pH 7.423 7.350-7.450 Arterial Blood Partial Pressure CO2 50.3 H 32.0-45.0 mmHg Arterial Blood Partial Pressure O2 168.2 H 83.0-108.0 mmHg Arterial Blood HCO3 32.1 H 21.0-28.0 mmol/L Arterial Blood Oxygen Saturation 99.1 H 94.0-98.0 % Arterial Blood Base Excess 6.7 H -2.0-3.0 mmol/L Arterial Blood Oxyhemoglobin 98.4 H 94.0-98.0 % Arterial Blood Carboxyhemoglobin 0.3 L 0.5-1.5 % Arterial Blood Methemoglobin 0.4 0.0-1.5 % Hipolito Test Modified Blood Gas Total Hemoglobin 10.30 L 12.0-16.0 g/dL Blood Gas Liter Flow 2.00 Blood Gas Modality Nasal cannula FiO2 % 28.0 POC Glucose 107 H 70-106 mg/dl White Blood Count 4.0 #L 4.4-10.8 10^3/uL Red Blood Count 3.36 L 4.0-5.20 10^6/uL Hemoglobin 9.9 L 12.2-16.2 g/dL Hematocrit 29.1 L 36.0-46.0 % Mean Corpuscular Volume 86.7 80.0-100.0 fL Mean Corpuscular Hemoglobin 29.6 28.0-32.0 pg Mean Corpuscular Hemoglobin Concent 34.2 32.0-36.0 g/dL Red Cell Distribution Width 16.0 H 11.8-14.3 % Platelet Count 160 140-450 10^3/uL Mean Platelet Volume 8.2 6.9-10.8 fL Neutrophils (%) (Auto) 75.5 37.0-80.0 % Lymphocytes (%) (Auto) 11.7 10.0-50.0 % Monocytes (%) (Auto) 9.8 0.0-12.0 % Eosinophils (%) (Auto) 2.1 0.0-7.0 % Basophils (%) (Auto) 0.9 0.0-2.0 % Neutrophils # (Auto) 3.0 1.6-8.6 10 ^3/uL Lymphocytes # (Auto) 0.5 0.4-5.4 10 ^3/uL Monocytes # (Auto) 0.4 0-1.3 10 ^3/uL Eosinophils # (Auto) 0.1 0-0.8 10 ^3/uL Basophils # (Auto) 0 0-0.2 10 ^3/uL Nucleated Red Blood Cells 0.5 % Sodium Level 138 136-145 mmol/L Potassium Level 3.3 L 3.5-5.1 mmol/L Chloride Level 98 98-107 mmol/L Carbon Dioxide Level 30 20-31 mmol/L Anion Gap 10 5-15 Blood Urea Nitrogen 28 H 9-23 mg/dL Creatinine 6.37 H 0.550-1.02 mg/dL Glomerular Filtration Rate Calc 7 >90 mL/min BUN/Creatinine Ratio 4.4 L 10.0-20.0 Serum Glucose 101 74-106 mg/dL Calcium Level 9.7 8.7-10.4 mg/dL Total Bilirubin 0.6 0.2-1.0 mg/dL Aspartate Amino Transferase (AST) 67 H 13-40 U/L Alanine Aminotransferase (ALT) 30 7-40 U/L Alkaline Phosphatase 143 H 46-116 U/L Total Protein 8.1 5.7-8.2 g/dL Albumin 3.4 3.2-4.8 g/dL Troponin I High Sensitivity 24 </=34 ng/L Test 09/11/24 16:39 09/11/24 13:35 Range/Units Troponin I High Sensitivity 26 24 </=34 ng/L White Blood Count 6.0 # 4.4-10.8 10^3/uL Red Blood Count 3.41 L 4.0-5.20 10^6/uL Hemoglobin 10.2 L 12.2-16.2 g/dL Hematocrit 29.5 L 36.0-46.0 % Mean Corpuscular Volume 86.6 80.0-100.0 fL Mean Corpuscular Hemoglobin 29.9 28.0-32.0 pg Mean Corpuscular Hemoglobin Concent 34.6 32.0-36.0 g/dL Red Cell Distribution Width 16.2 H 11.8-14.3 % Platelet Count 75 L 140-450 10^3/uL Mean Platelet Volume 8.4 6.9-10.8 fL Neutrophils (%) (Auto) 60.7 37.0-80.0 % Lymphocytes (%) (Auto) 22.1 10.0-50.0 % Monocytes (%) (Auto) 12.3 H 0.0-12.0 % Eosinophils (%) (Auto) 3.7 0.0-7.0 % Basophils (%) (Auto) 1.2 0.0-2.0 % Neutrophils # (Auto) 3.6 1.6-8.6 10 ^3/uL Lymphocytes # (Auto) 1.3 0.4-5.4 10 ^3/uL Monocytes # (Auto) 0.7 0-1.3 10 ^3/uL Eosinophils # (Auto) 0.2 0-0.8 10 ^3/uL Basophils # (Auto) 0.1 0-0.2 10 ^3/uL Nucleated Red Blood Cells 0.5 % Sodium Level 135 L 136-145 mmol/L Potassium Level 3.6 3.5-5.1 mmol/L Chloride Level 96 L 98-107 mmol/L Carbon Dioxide Level 30 20-31 mmol/L Anion Gap 9 5-15 Blood Urea Nitrogen 20 9-23 mg/dL Creatinine 5.37 H 0.550-1.02 mg/dL Glomerular Filtration Rate Calc 8 >90 mL/min BUN/Creatinine Ratio 3.7 L 10.0-20.0 Serum Glucose 107 H 74-106 mg/dL Calcium Level 9.8 8.7-10.4 mg/dL Total Bilirubin 0.6 0.2-1.0 mg/dL Aspartate Amino Transferase (AST) 76 H 13-40 U/L Alanine Aminotransferase (ALT) 39 7-40 U/L Alkaline Phosphatase 167 H 46-116 U/L Total Protein 9.0 H 5.7-8.2 g/dL Albumin 3.9 3.2-4.8 g/dL Assessment ESRD on HD via Rt arm AVG metabolic encephalopathy HTN, Seizure h/o shingles Anemia of CKD secondary hyperparathyroidism Hypokalemia Metabolic acidosis Azotemia Hypothermia Plan: last HD was at [facility] on Friday 5/ Next HD Friday JOSE M post HD as needed. Hb goal 10-11 g/dl Sahil chisholm TSH level Plan discussed with: Patient KEYLA VILLALBA MD September 12, 2024 13:30
--- NOTE | 2024-09-12 15:23 | DVHPN2 ---
Subjective in bed minimally responsive Changes from previous H/P or p: No Changes Eyes: No Pain, No Vision change, No Conjunctivae inflammation, No Eyelid inflammation, No Other, No Redness ENT: No Ear pain, No Ear discharge, No Nose pain, No Nose discharge, No Nose congestion, No Mouth pain, No Mouth swelling, No Throat pain, No Throat swelling, No Other Cardiovascular: No Chest Pain, No Palpitations, No Orthopnea, No Paroxysmal Noc. Dyspnea, No Edema, No Lt Headedness, No Other Respiratory: No Cough, No Dry, No Shortness of breath, No SOB with excertion, No Wheezing, No Hemoptysis, No Pleuritic Pain, No Sputum, No Other Gastrointestinal: No Nausea, No Vomiting, No Abdominal Pain, No Diarrhea, No Constipation, No Melena, No Hematochezia, No Other Genitourinary: No Dysuria, No Frequency, No Incontinence, No Hematuria, No Retention, No Other Musculoskeletal: No other, No neck pain, No shoulder pain, No arm pain, No back pain, No hand pain, No leg pain, No foot pain Skin: No Rash, No Lesions, No Jaundice, No Bruising, No Other Objective Vitals Vital Signs Date Time Temp Pulse Resp B/P (MAP) Pulse Ox O2 Delivery O2 Flow Rate FiO2 09/12/24 15:00 101 26 212/104 (140) 94 09/12/24 12:00 95.4 95.4 09/12/24 08:25 Nasal Cannula* 2 28 Intake/Output Intake and Output 09/12/24 07:00 Intake Total 240 ml Balance 240 ml Intake IV Total 240 ml General Appearance: Other (does not follow commands, lethargic) HEENT: Atraumatic Lungs: Clear to auscultation Cardiovascular: Regular rate, Normal S1, Normal S2 Medications Current Medications Medications Dose Ordered Sig/Maru Route Start Time Stop Time Status Last Admin Dose Admin Hydralazine HCl 10 mg Q6HP PRN IV 09/11/24 19:45 09/12/24 14:42 10 MG Sodium Chloride 1,000 ml @ 60 mls/hr [id number] IV 09/11/24 19:45 09/11/24 23:22 60 MLS/HR Acetaminophen/ Hydrocodone Bitart 1 tab Q4HP PRN PO 09/11/24 19:45 Ondansetron HCl 4 mg Q4HP PRN IV 09/11/24 19:45 Docusate Sodium 100 mg BIDPRN PRN PO 09/11/24 19:45 Acetaminophen 650 mg Q6HP PRN PO 09/11/24 19:45 Nitroglycerin 0.4 mg Q5MINP PRN SL 09/11/24 21:15 Morphine Sulfate 2 mg Q30M PRN IV 09/11/24 21:15 Phenytoin Sodium 100 mg Q8HR IV 09/11/24 22:00 09/12/24 14:15 100 MG Lorazepam 1 mg Q2HPRN PRN PO 09/11/24 22:00 Cancel Lorazepam 1 mg Q2HPRN PRN IV 09/11/24 22:00 Laboratory Results Laboratory Tests 09/12/24 06:04 Chemistry Test 09/12/24 06:04 Albumin 3.4 g/dL (3.2-4.8) Calcium Level 9.7 mg/dL (8.7-10.4) Total Protein 8.1 g/dL (5.7-8.2) LFT Test 09/12/24 06:04 Alanine Aminotransferase (ALT) 30 U/L (7-40) Alkaline Phosphatase 143 U/L (46-116) H Aspartate Amino Transferase (AST) 67 U/L (13-40) H Total Bilirubin 0.6 mg/dL (0.2-1.0) Blood Gas Results Test 09/12/24 09:46 Arterial Blood pH 7.423 (7.350-7.450) FiO2 % 28.0 Assessment/Plan Assessment/Plan Metabolic encephalopathy from uremia ESRD (end stage renal failure) Generalized weakness Hypokalemia Nephrology consult for HD Monitor off benzodiazepine replace today Plan discussed with: Other (nurse) Date of Service: September 12, 2024 Billing Provider: NAA CHOU MD Common Visit Codes: [id number] INP/OBS CARE(HIGH) NAA CHOU MD September 12, 2024 15:23
--- NOTE | 2024-09-12 17:17 | DVH ---
EXAM: CT HEAD WITHOUT CONTRAST INDICATION: ALOC TECHNIQUE: CT of the head without intravenous contrast. Radiation Dose Information: CT Dose: CTDI volume is 91.56 mGy. Dose-length product is 1619.58 mGy*cm The dose indicators for CT are the volume Computed Tomography (CT) Dose Index (CTDIvol) and the Dose Length Product (DLP), and are measured in units of mGy and mGy-cm, respectively. These indicators are not patient dose, but values generated from the CT scanner acquisition factors. The report includes radiation exposure data for exposures received during this examination. COMPARISON: CT HEAD WITHOUT CONTRAST on DOS: 09/11/24 FINDINGS: There is no evidence of acute intracranial hemorrhage, extra-axial collection, mass effect, midline s hift, herniation or hydrocephalus. The ventricles, sulci and cisterns are age appropriate. The perez-white differentiation is intact. Patchy periventricular and subcortical white matter hypoattenuation is nonspecific but may be related to small vessel ischemic disease. The visualized paranasal sinuses and mastoid air cells are clear. The surrounding soft tissues and osseous structures are unremarkable. IMPRESSION: 1. No acute intracranial hemorrhage 2. No CT findings of territorial ischemia
[2024-09-12] MEDS: hydrALAZINE HCL 20 MG/ML VL IV ONE (18:16)
[2024-09-12 19:51] VITALS: PULSE 79; RESP 25; O2SAT 94
[2024-09-12] MEDS: ENALAPRILAT 1.25 MG/ML-1ML VIAL IV ONE (20:25)
[2024-09-13] MEDS: LORazepam 2MG/ML-1ML VIAL IV PRN (03:42)
[2024-09-13] MEDS ORDERED: cloNIDine HCL 0.1 MG TAB PO ONE (05:15)
[2024-09-13] MEDS: hydrALAZINE HCL 20 MG/ML VL IV ONE (05:37)
[2024-09-13 07:30] VITALS: PULSE 85; RESP 28; O2SAT 98
[2024-09-13] MEDS: cloNIDine HCL 0.1 MG TAB PO ONE (12:00)
[2024-09-13] MEDS: ALBUMIN 25% 100 ML IV ONE (15:09)
--- NOTE | 2024-09-13 15:21 | DVHPN2 ---
Progress Note - Dictate Date Seen: September 13, 2024 Medical Necessity Reason Pt with a Central, PICC or Fol: No Subjective Confused. Undergoing hemodialysis at this time. vital signs Vital Sign Date Time Temp Pulse Resp B/P (MAP) Pulse Ox O2 Delivery O2 Flow Rate FiO2 09/13/24 14:00 74 26 120/72 (88) 95 09/13/24 07:30 Nasal Cannula* 2 28 09/13/24 06:00 97.1 97.1 Total Intake and Output 09/12/24 09/12/24 09/13/24 15:00 23:00 07:00 Intake Total 440 ml 320 ml 420 ml Balance 440 ml 320 ml 420 ml medications Current Medications Medications Dose Ordered Sig/Maru Route Start Time Stop Time Status Last Admin Dose Admin Hydralazine HCl 10 mg Q6HP PRN IV 09/11/24 19:45 09/13/24 10:54 10 MG Sodium Chloride 1,000 ml @ 60 mls/hr [id number] IV 09/11/24 19:45 09/13/24 04:40 60 MLS/HR Acetaminophen/ Hydrocodone Bitart 1 tab Q4HP PRN PO 09/11/24 19:45 Ondansetron HCl 4 mg Q4HP PRN IV 09/11/24 19:45 Docusate Sodium 100 mg BIDPRN PRN PO 09/11/24 19:45 Acetaminophen 650 mg Q6HP PRN PO 09/11/24 19:45 Nitroglycerin 0.4 mg Q5MINP PRN SL 09/11/24 21:15 Morphine Sulfate 2 mg Q30M PRN IV 09/11/24 21:15 Phenytoin Sodium 100 mg Q8HR IV 09/11/24 22:00 09/13/24 14:15 100 MG Lorazepam 1 mg Q2HPRN PRN PO 09/11/24 22:00 Cancel Lorazepam 1 mg Q2HPRN PRN IV 09/11/24 22:00 09/13/24 03:42 1 MG objective HEENT: No evidence of JVD, no oral ulcers. Pulmonary: Lungs are clear on auscultation bilaterally Cardiovascular S1-S2, no S3 or S4 Abdomen: Bowel sounds positive, soft no rebound tenderness Skin: No rash Neurological: Confused laboratory and microbiology Laboratory Tests 09/12/24 06:04 Test 09/12/24 06:04 Range/Units Serum Glucose 101 74-106 mg/dL Assessment/Plan Assessment: ESRD on HD via Rt arm AVG metabolic encephalopathy HTN, Seizure h/o shingles Anemia of CKD secondary hyperparathyroidism Hypokalemia Metabolic acidosis Azotemia Hypothermia Plan: Hemodialysis today Monitor H&H, Neurology consult Check TSH, check ammonia level. JOSE M post HD as needed. Hb goal 10-11 g/dl Sahil Butcher Thank you very much for allowing us to participate in the care of this patient Plan discussed with: Patient SHAMAR ORELLANA MD September 13, 2024 15:21
[2024-09-13] MEDS: SODIUM CHL 0.9% 1000 ML BAG XX ONE (16:00)
[2024-09-13] MEDS ORDERED: cloNIDine HCL 0.1 MG TAB PO PRN (17:00)
--- NOTE | 2024-09-13 17:02 | DVHPN2 ---
Subjective Seen and examined at bedside, for HD today. Patient is confused, unable to follow commands, spoke with Deborah. Will get Neurology eval. Changes from previous H/P or p: No Changes Eyes: No Pain, No Vision change, No Conjunctivae inflammation, No Eyelid inflammation, No Other, No Redness ENT: No Ear pain, No Ear discharge, No Nose pain, No Nose discharge, No Nose congestion, No Mouth pain, No Mouth swelling, No Throat pain, No Throat swelling, No Other Cardiovascular: No Chest Pain, No Palpitations, No Orthopnea, No Paroxysmal Noc. Dyspnea, No Edema, No Lt Headedness, No Other Respiratory: No Cough, No Dry, No Shortness of breath, No SOB with excertion, No Wheezing, No Hemoptysis, No Pleuritic Pain, No Sputum, No Other Gastrointestinal: No Nausea, No Vomiting, No Abdominal Pain, No Diarrhea, No Constipation, No Melena, No Hematochezia, No Other Genitourinary: No Dysuria, No Frequency, No Incontinence, No Hematuria, No Retention, No Other Musculoskeletal: No other, No neck pain, No shoulder pain, No arm pain, No back pain, No hand pain, No leg pain, No foot pain Skin: No Rash, No Lesions, No Jaundice, No Bruising, No Other Objective Vitals Vital Signs Date Time Temp Pulse Resp B/P (MAP) Pulse Ox O2 Delivery O2 Flow Rate FiO2 09/13/24 16:33 77 09/13/24 16:00 98.8 29 164/88 (113) 90 98.8 09/13/24 07:30 Nasal Cannula* 2 28 Intake/Output Intake and Output 09/13/24 07:00 Intake Total 1180 ml Balance 1180 ml Intake IV Total 1180 ml General Appearance: Other HEENT: Atraumatic Lungs: Clear to auscultation Cardiovascular: Regular rate, Normal S1, Normal S2 Abdomen: Normal bowel sounds, Soft Extremities: Other (Right Forearm fistula) Medications Current Medications Medications Dose Ordered Sig/Maru Route Start Time Stop Time Status Last Admin Dose Admin Hydralazine HCl 10 mg Q6HP PRN IV 09/11/24 19:45 09/13/24 10:54 10 MG Acetaminophen/ Hydrocodone Bitart 1 tab Q4HP PRN PO 09/11/24 19:45 Ondansetron HCl 4 mg Q4HP PRN IV 09/11/24 19:45 Docusate Sodium 100 mg BIDPRN PRN PO 09/11/24 19:45 Acetaminophen 650 mg Q6HP PRN PO 09/11/24 19:45 Nitroglycerin 0.4 mg Q5MINP PRN SL 09/11/24 21:15 Morphine Sulfate 2 mg Q30M PRN IV 09/11/24 21:15 Phenytoin Sodium 100 mg Q8HR IV 09/11/24 22:00 09/13/24 14:15 100 MG Lorazepam 1 mg Q2HPRN PRN PO 09/11/24 22:00 Cancel Lorazepam 1 mg Q2HPRN PRN IV 09/11/24 22:00 09/13/24 03:42 1 MG Laboratory Results Laboratory Tests 09/12/24 06:04 HgA1c, TSH Test 09/13/24 08:37 Thyroid Stimulating Hormone (TSH) 2.01 uIU/mL (0.55-4.78) Assessment/Plan Assessment/Plan Metabolic encephalopathy from uremia- Improving ESRD (end stage renal failure)- Cont HD Hypertensive Emergency- Monitor and adjust meds Hypokalemia critical care time 39 mins Plan discussed with: Patient, Other (Deborah) My Orders Orders - BRYNN CRAVEN MD Procedure Category Date Status Time Basic Metabolic Panel LAB 09/14/24 Verified 04:00 Complete Blood Count LAB 09/14/24 Verified 04:00 Date of Service: September 13, 2024 Billing Provider: BRYNN CRAVEN MD Common Visit Codes: [id number] INP/OBS CARE(HIGH) Secondary Visit Codes: [id number] CARE PLAN 30 MINUTES BRYNN CRAVEN MD September 13, 2024 17:02
[2024-09-13] MEDS: D5W 5% 1,000 ML IV ONE (17:45)
[2024-09-13 19:58] VITALS: PULSE 100; RESP 20; O2SAT 99
[2024-09-13] MEDS: LABETALOL HCL 20 MG/4 ML VL IV PRN (20:08)
--- NOTE | 2024-09-13 20:46 | DVHINCON2 ---
Date of service: September 13, [address] Pickett Reason for Consultation Encephalopathy History of Present Illness I was asked to see the patient on urgent basis Ms. Wright is a 68 years old female with a history of hypertension, end-stage renal failure on hemodialysis, seizure disorder, she was brought to the [facility] on 09/11/2024 with a chief complaint of altered mental status. At this time, she was awake, but only intelligible mumble words, she does not follow verbal commands, the history is obtained from her sister, who is not a good historian According to her sister, the patient was developed visual hallucination where he saw nonexisting since her creatures on 09/11/2024 and she was admitted to the hospital, when she came to see the patient was, the patient was mentally fine, was able to recognize her send had conversation with her. According to her sister, the patient was has normal mentation and memory On 09/09/24, she was seen in the [facility] ER for skin rashes in the left upper extremity, and the patient was said to have shingles, she was prescribed with valacyclovir She was a very long history of seizure disorder, in that she was spells event with shaking all over body, her sister does not remember much but she claimed the patient was respond to her during the seizure activity, there was no fighting. Her sister does not remember how often she was seizures, but last se izure has to be before 06/2024 before she were relocated from the [place] to the [facility]. Her sister looked at the patient was father and she said the patient was on Keppra 500 mg b.i.d. topically she claimed this is only seizure medication the patient was on [phone] no answer [phone] Phenytoin, 09/13/2024: 4.9 ABG, 09/12/2024: CO2 retention WBC/HB/PLT/MCV, 09/12/2024: 4/9.9/160/86.7 BUN/CR, 09/12/2024: 28/6.37 TBI/AST/ALT/AP, 09/12/2024: 0.6/67/30/143 TSH, 09/13/2024: 2.01 Chest x-ray, 09/11/2024: 1. Moderately severe cardiomegaly 2. Moderate bilateral interstitial changes CT head, 09/12/2024: 1. No acute intracranial hemorrhage 2. No CT findings of territorial ischemia Past Medical History Hypertension, end-stage kidney failure on hemodialysis, seizures Past Surgical History Hemodialysis access Family History Diabetes, heart disease Social History She is not tobacco smoke, no history of alcohol or recreational substance abuse Allergies: Coded Allergies: NO KNOWN ALLERGIES (Unverified , 08/05/11) Home Meds Active Scripts Valacyclovir HCl (Valacyclovir HCl) 1 Gm Tab, 1 GM PO TID for 7 Days, #21 TAB Prov:VENU BETTENCOURT DO 09/09/24 Reported Medications Phenytoin Sodium (Dilantin) 100 Mg Cap 08/05/11 Current Medications Current Medications Medications (Trade) Dose Ordered Sig/Maru Route PRN Reason Start Time Stop Time Status Last Admin Clonidine HCl (Catapres Tablet) 0.1 mg Q6HP PRN PO SBP>160 09/13/24 17:00 Hydralazine HCl (Apresoline Tablet) 50 mg Q12HR PO 09/13/24 22:00 09/13/24 19:32 DC Dextrose/Sodium Chloride 1,000 ml @ 75 mls/hr [id number] IV 09/13/24 19:00 Diagnostic Test (Pha) (Accu-Chek Comfort Curve T) 1 strip Q4HR 09/13/24 22:00 Enalaprilat (Vasotec Injection) 5 mg Q6HP PRN IV SBP>160 09/13/24 19:45 Labetalol HCl (Labetalol HCl) 20 mg Q2HPRN PRN IV SBP>160 09/13/24 19:45 09/13/24 20:08 Review of Systems As above, the other systems are negative Vital Signs Vital Signs Date Time Temp Pulse Resp B/P (MAP) Pulse Ox O2 Delivery O2 Flow Rate FiO2 09/13/24 20:15 99.4 100 20 210/113 (145) 99 99.4 09/13/24 19:58 Nasal Cannula* 3 32 Physical Exam GENERAL EXAM: General: the patient is well developed and nourished. No acute distress. HEENT: Normocephalic, neck is supple, no carotid bruits. No mass. RESPIRATORY: Normal respiratory effort with symmetrical lung expansion. Lungs clear to auscultation. CARDIOVASCULAR: Regular rate and rhythm with no murmurs. S1, S2. ABDOMEN: Soft, nontender, normal bowel sound NEUROLOGICAL: MENTAL STATUS: Subjective SPEECH, LANGUAGE, HIGHER CORTICAL FUNCTION: no aphasia or dysathria. CRANIAL NERVES: #2: Intact visual moreno to confrontation. (visual thread) #3,4,6: Pupils are equal, round and reactive. EOMs full and conjugate. #5: Facial sensation intact in all three divisions bilaterally. Mandibular strength intact. #7: Facial muscles symmetrical and strength intact. #8: Hearing grossly normal to voice. #9,10: Deferred #11: Looks fine #12: Tongue midline. No fasciculations or atrophy. SENSATION: Sensation to touch and pinprick is fine MOTOR: Normal tone in the upper and lower extremity. Normal muscle bulk. No fasciculations. No abnormal movements or posturing. She moves the arms and legs REFLEXES: Deep tendon reflexes are symmetrical. No pathological reflexes. CEREBELLAR/COORDINATION: Deferred GAIT/STATION: deferred. Labs/Diagnostic Data Labs Test 09/13/24 17:58 09/13/24 16:41 09/13/24 08:37 09/12/24 09:46 Range/Units Ammonia < 10 L 11-32 umol/L POC Glucose 76 70-106 mg/dl Thyroid Stimulating Hormone (TSH) 2.01 0.55-4.78 uIU/mL Phenytoin (Dilantin) Level 4.9 L 10-20 ug/mL Blood Gas Specimen Type Arterial Blood Gas Sample Site Right radial Blood Gas Patient Temperature 37.0 Arterial Blood Date Drawn [id number] Arterial Blood pH 7.423 7.350-7.450 Arterial Blood Partial Pressure CO2 50.3 H 32.0-45.0 mmHg Arterial Blood Partial Pressure O2 168.2 H 83.0-108.0 mmHg Arterial Blood HCO3 32.1 H 21.0-28.0 mmol/L Arterial Blood Oxygen Saturation 99.1 H 94.0-98.0 % Arterial Blood Base Excess 6.7 H -2.0-3.0 mmol/L Arterial Blood Oxyhemoglobin 98.4 H 94.0-98.0 % Arterial Blood Carboxyhemoglobin 0.3 L 0.5-1.5 % Arterial Blood Methemoglobin 0.4 0.0-1.5 % Hipolito Test Modified Blood Gas Total Hemoglobin 10.30 L 12.0-16.0 g/dL Blood Gas Liter Flow 2.00 Blood Gas Modality Nasal cannula FiO2 % 28.0 Test 09/12/24 06:04 09/11/24 18:26 Range/Units White Blood Count 4.0 #L 4.4-10.8 10^3/uL Red Blood Count 3.36 L 4.0-5.20 10^6/uL Hemoglobin 9.9 L 12.2-16.2 g/dL Hematocrit 29.1 L 36.0-46.0 % Mean Corpuscular Volume 86.7 80.0-100.0 fL Mean Corpuscular Hemoglobin 29.6 28.0-32.0 pg Mean Corpuscular Hemoglobin Concent 34.2 32.0-36.0 g/dL Red Cell Distribution Width 16.0 H 11.8-14.3 % Platelet Count 160 140-450 10^3/uL Mean Platelet Volume 8.2 6.9-10.8 fL Neutrophils (%) (Auto) 75.5 37.0-80.0 % Lymphocytes (%) (Auto) 11.7 10.0-50.0 % Monocytes (%) (Auto) 9.8 0.0-12.0 % Eosinophils (%) (Auto) 2.1 0.0-7.0 % Basophils (%) (Auto) 0.9 0.0-2.0 % Neutrophils # (Auto) 3.0 1.6-8.6 10 ^3/uL Lymphocytes # (Auto) 0.5 0.4-5.4 10 ^3/uL Monocytes # (Auto) 0.4 0-1.3 10 ^3/uL Eosinophils # (Auto) 0.1 0-0.8 10 ^3/uL Basophils # (Auto) 0 0-0.2 10 ^3/uL Nucleated Red Blood Cells 0.5 % Sodium Level 138 136-145 mmol/L Potassium Level 3.3 L 3.5-5.1 mmol/L Chloride Level 98 98-107 mmol/L Carbon Dioxide Level 30 20-31 mmol/L Anion Gap 10 5-15 Blood Urea Nitrogen 28 H 9-23 mg/dL Creatinine 6.37 H 0.550-1.02 mg/dL Glomerular Filtration Rate Calc 7 >90 mL/min BUN/Creatinine Ratio 4.4 L 10.0-20.0 Serum Glucose 101 74-106 mg/dL Calcium Level 9.7 8.7-10.4 mg/dL Total Bilirubin 0.6 0.2-1.0 mg/dL Aspartate Amino Transferase (AST) 67 H 13-40 U/L Alanine Aminotransferase (ALT) 30 7-40 U/L Alkaline Phosphatase 143 H 46-116 U/L Total Protein 8.1 5.7-8.2 g/dL Albumin 3.4 3.2-4.8 g/dL Troponin I High Sensitivity 24 </=34 ng/L Assessment Altered mental status, visual hallucination Metabolic encephalopathy Other acute central nervous system disorder, encephalitis, stroke, seizure, few less likely Recent shingles History of seizure with atypical feature Plan/Recommendation Monitoring Supportive treatment Telemetry Urinalysis Urine drug screening Chest x-ray EEG MRI brain scan Keppra 500 mg IV b.i.d. Ativan for seizure breakthrough More recommendation per clinical course Prognosis: poor Spent is 50 minutes This medical document was created using an electronic medical record system with [employer] computerized dictation system. Although this document has been carefully reviewed, there may still be some phonetic and typographical errors. These areas are purely typographical due to imperfections of the software programs, and do not reflect any compromise in the patient's medical care. Plan discussed with: KIT Alonzo MD September 13, 2024 20:46
[2024-09-13] MEDS: ENALAPRILAT 1.25 MG/ML-1ML VIAL IV PRN (21:45)
[2024-09-13] MEDS ORDERED: hydrALAZINE HCL 25 MG TAB PO SCH (22:00)
[2024-09-13] MEDS: ACCU-CHEK COMFORT CURVE STRIP VI SCH (22:00)
[2024-09-13] MEDS: hydrALAZINE HCL 20 MG/ML VL IV PRN (22:44)
[2024-09-13] MEDS: EPOETIN ALFA-EPBX 4,000 UNIT/ML VIAL SC ONE (22:45)
[2024-09-13] MEDS: levETIRAcetam 1000 mg/100ml 100 ML IV ONE (22:45)
[2024-09-13] MEDS: D5W/SOD CHLO 0.9% 1,000 ML IV SCH (23:51)
[2024-09-14] MEDS: dilTIAZem 25 MG/5 ML VIAL IV ONE (00:20)
[2024-09-14 06:24] LABS: Anion Gap 10 (5-15); Carbon Dioxide 29 mmol/L (20-31); Chloride 104 mmol/L (98-107); Sodium 143 mmol/L (136-145)
[2024-09-14 06:25] LABS: Calcium 9.6 mg/dL (8.7-10.4)
[2024-09-14 06:26] LABS: Basophils # (auto) 0.1 10 ^3/uL (0-0.2); Basophils % (auto) 0.6 % (0.0-2.0); Eosinophils # (auto) 0.1 10 ^3/uL (0-0.8); Eosinophils % (auto) 0.7 % (0.0-7.0); Hematocrit 27.1 % (36.0-46.0); Hemoglobin 9.3 g/dL (12.2-16.2); Lymphocytes # (auto) 1.1 10 ^3/uL (0.4-5.4); Lymphocytes % (auto) 9.7 % (10.0-50.0); Mean Corpuscular Hemoglobin 30.1 pg (28.0-32.0); Mean Corpuscular Hgb Conc. 34.3 g/dL (32.0-36.0); Mean Corpuscular Volume 87.6 fL (80.0-100.0); Monocytes % (auto) 8.8 % (0.0-12.0); Neutrophils # (auto) 9.4 10 ^3/uL (1.6-8.6); Neutrophils % (auto) 80.2 % (37.0-80.0); Nucleated Red Blood Cells % 0.6 %; Platelet Count (auto) 149 10^3/uL (140-450); Red Blood Cells 3.09 10^6/uL (4.0-5.20); Red Cell Distribution Width 16.4 % (11.8-14.3); White Blood Cell 11.7 10^3/uL (4.4-10.8)
[2024-09-14 06:30] LABS: BUN/Creatinine Ratio 4.1 (10.0-20.0); Blood Urea Nitrogen 19 mg/dL (9-23); Glucose 104 mg/dL (74-106)
--- NOTE | 2024-09-14 08:59 | DVHPN2 ---
Progress Note - Dictate Date Seen: September 14, 2024 Medical Necessity Reason Pt with a Central, PICC or Fol: No Subjective Ms. Wright is a 68 years old female with a history of hypertension, end-stage renal failure on hemodialysis, seizure disorder, she was brought to the [facility] on 09/11/2024 with a chief complaint of altered mental status. According to her sister, the patient developed visual hallucination where he saw nonexisting objects/creatures on 09/11/2024 and she was take to the [facility]; when she came to see the patient, the patient was mentally fine, she recognized her and was able to maintain a good conversation. According to her sister, the patient's baseline was mentally normal On 09/09/24, she was seen in the [facility] ER for skin rashes in the left upper extremity, and the patient was said to have shingles, she was prescribed valacyclovir She has a very long history of seizure disorder, she was spells of event with shaking all over body, her sister does not remember much about her seizure, but she claimed the patient was respond to her during the seizure activity, there was no associated oral trauma. Her sister does not remember how often she has seizures, but last seizure was before 06/2024 when she relocated from the [place] to the [facility]. Her sister looked at the patient's bottle and confirmed the patient was on Keppra 500 mg b.i.d., the only seizure medication the patient was on I have seen and examined the patient, I have discussed with her nurse, she was sleeping, but is easily arousable to me, on waking up, she moves, moves the arms a little bit, but she does not follow verbal commands or able to talk. No seizure activity Phenytoin, 09/13/2024: 4.9 ABG, 09/12/2024: CO2 retention WBC/HB/PLT/MCV, 09/12/2024: 4/9.9/160/86.7 BUN/CR, 09/12/2024: 28/6.37 TBI/AST/ALT/AP, 09/12/2024: 0.6/67/30/143 TSH, 09/13/2024: 2.01 Chest x-ray, 09/11/2024: 1. Moderately severe cardiomegaly 2. Moderate bilateral interstitial changes CT head, 09/12/2024: 1. No acute intracranial hemorrhage 2. No CT findings of territorial ischemia vital signs Vital Sign Date Time Temp Pulse Resp B/P (MAP) Pulse Ox O2 Delivery O2 Flow Rate FiO2 09/14/24 08:00 98.4 74 25 186/84 (118) 99 98.4 09/13/24 19:58 Nasal Cannula* 3 32 Total Intake and Output 09/13/24 09/13/24 09/14/24 15:00 23:00 07:00 Intake Total 480 ml 220 ml 375 ml Output Total 1000 ml Balance 480 ml -780 ml 375 ml medications Current Medications Medications Dose Ordered Sig/Maru Route Start Time Stop Time Status Last Admin Dose Admin Acetaminophen/ Hydrocodone Bitart 1 tab Q4HP PRN PO 09/11/24 19:45 Ondansetron HCl 4 mg Q4HP PRN IV 09/11/24 19:45 Docusate Sodium 100 mg BIDPRN PRN PO 09/11/24 19:45 Acetaminophen 650 mg Q6HP PRN PO 09/11/24 19:45 Nitroglycerin 0.4 mg Q5MINP PRN SL 09/11/24 21:15 Morphine Sulfate 2 mg Q30M PRN IV 09/11/24 21:15 Lorazepam 1 mg Q2HPRN PRN PO 09/11/24 22:00 Cancel Lorazepam 1 mg Q2HPRN PRN IV 09/11/24 22:00 09/13/24 03:42 1 MG Clonidine HCl 0.1 mg Q6HP PRN PO 09/13/24 17:00 Dextrose/Sodium Chloride 1,000 ml @ 75 mls/hr [id number] IV 09/13/24 19:00 09/14/24 08:25 75 MLS/HR Diagnostic Test (Pha) 1 strip Q4HR 09/13/24 22:00 09/14/24 06:19 1 STRIP Enalaprilat 5 mg Q6HP PRN IV 09/13/24 19:45 09/13/24 21:45 5 MG Labetalol HCl 20 mg Q2HPRN PRN IV 09/13/24 19:45 09/14/24 06:29 20 MG Hydralazine HCl 10 mg Q6HP PRN IV 09/13/24 22:15 09/14/24 05:57 10 MG Levetiracetam 100 ml @ 400 mls/hr BID IV 09/14/24 10:00 objective General: the patient is well developed and nourished. No acute distress. MENTAL STATUS: Subjective SPEECH, LANGUAGE, HIGHER CORTICAL FUNCTION: Subjective CRANIAL NERVES: Intact visual moreno to confrontation. (visual thread) Pupils are equal, round and reactive. EOMs full and conjugate. Facial sensation ok in all three divisions bilaterally. Mandibular strength intact. Facial muscles symmetrical and strength intact. SENSATION: Sensation to touch and pinprick is fine MOTOR: Normal tone in the upper and lower extremity. Normal muscle bulk. No fasciculations. No abnormal movements or posturing. She moves the arms REFLEXES: Deep tendon reflexes are symmetrical. No pathological reflexes. CEREBELLAR/COORDINATION: Deferred GAIT/STATION: deferred. laboratory and microbiology Laboratory Tests 09/14/24 05:58 Test 09/14/24 05:58 Range/Units Serum Glucose 104 74-106 mg/dL Problem List Altered mental status, visual hallucination Metabolic encephalopathy Other acute central nervous system disorder, encephalitis, stroke, seizure, less likely Recent shingles History of seizure with atypical feature Assessment/Plan Monitoring Supportive treatment Telemetry Urinalysis Urine drug screening EEG MRI brain scan Keppra 500 mg IV b.i.d. Ativan for seizure breakthrough More recommendation per clinical course This medical document was created using an electronic medical record system with [employer] dictation system. Although this document has been carefully reviewed, there may still be some phonetic and typographical errors. These areas are purely typographical due to imperfections of the software programs, and do not reflect any compromise in the patient's medical care. Prognosis poor Plan discussed with: Other KIT GRISSOM MD September 14, 2024 08:59
[2024-09-14] MEDS: levETIRAcetam 500 mg/100ml 100 ML IV SCH (11:24)
--- NOTE | 2024-09-14 15:05 | DVHPN2 ---
Progress Note - Dictate Date Seen: September 14, 2024 Medical Necessity Reason Pt with a Central, PICC or Fol: No Subjective Obtunded vital signs Vital Sign Date Time Temp Pulse Resp B/P (MAP) Pulse Ox O2 Delivery O2 Flow Rate FiO2 09/14/24 14:30 73 221/106 09/14/24 08:00 98.4 25 99 98.4 09/13/24 19:58 Nasal Cannula* 3 32 Total Intake and Output 09/13/24 09/13/24 09/14/24 15:00 23:00 07:00 Intake Total 480 ml 220 ml 375 ml Output Total 1000 ml Balance 480 ml -780 ml 375 ml medications Current Medications Medications Dose Ordered Sig/Maru Route Start Time Stop Time Status Last Admin Dose Admin Acetaminophen/ Hydrocodone Bitart 1 tab Q4HP PRN PO 09/11/24 19:45 Ondansetron HCl 4 mg Q4HP PRN IV 09/11/24 19:45 Docusate Sodium 100 mg BIDPRN PRN PO 09/11/24 19:45 Acetaminophen 650 mg Q6HP PRN PO 09/11/24 19:45 Nitroglycerin 0.4 mg Q5MINP PRN SL 09/11/24 21:15 Morphine Sulfate 2 mg Q30M PRN IV 09/11/24 21:15 Lorazepam 1 mg Q2HPRN PRN PO 09/11/24 22:00 Cancel Lorazepam 1 mg Q2HPRN PRN IV 09/11/24 22:00 09/13/24 03:42 1 MG Clonidine HCl 0.1 mg Q6HP PRN PO 09/13/24 17:00 Dextrose/Sodium Chloride 1,000 ml @ 75 mls/hr [id number] IV 09/13/24 19:00 09/14/24 08:25 75 MLS/HR Diagnostic Test (Pha) 1 strip Q4HR 09/13/24 22:00 09/14/24 10:00 1 STRIP Enalaprilat 5 mg Q6HP PRN IV 09/13/24 19:45 09/13/24 21:45 5 MG Labetalol HCl 20 mg Q2HPRN PRN IV 09/13/24 19:45 09/14/24 14:30 20 MG Hydralazine HCl 10 mg Q6HP PRN IV 09/13/24 22:15 09/14/24 12:50 10 MG Levetiracetam 100 ml @ 400 mls/hr BID IV 09/14/24 10:00 09/14/24 11:24 400 MLS/HR objective HEENT: No evidence of JVD, no oral ulcers. Pulmonary: Lungs are clear on auscultation bilaterally Cardiovascular S1-S2, no S3 or S4 Abdomen: Bowel sounds positive, soft no rebound tenderness Skin: No rash Neurological: Confused laboratory and microbiology Laboratory Tests 09/14/24 05:58 Test 09/14/24 05:58 Range/Units Serum Glucose 104 74-106 mg/dL Assessment/Plan Assessment: ESRD on HD via Rt arm AVG metabolic encephalopathy HTN, Seizure h/o shingles Anemia of CKD secondary hyperparathyroidism Hypokalemia Metabolic acidosis Azotemia Hypothermia Plan: Hemodialysis Friday Monitor H&H, Neurology consult On antiseizure meds MRI pending JOSE M post HD as needed. Hb goal 10-11 g/dl Sahil Butcher Thank you very much for allowing us to participate in the care of this patient Plan discussed with: Patient SHAMAR ORELLANA MD September 14, 2024 15:05
[2024-09-14 19:59] VITALS: PULSE 72; RESP 33; O2SAT 99
[2024-09-15] VITALS (11 sets, daily range): BP systolic 134–163; BP diastolic 68–82; PULSE 49–66; RESP 16–28; TEMP 90; O2SAT 85–100
[2024-09-15] MEDS: cloNIDine HCL 0.1 MG TAB PO ONE (00:39)
--- NOTE | 2024-09-15 00:45 | DVHEEG2 ---
Neurology EEG Procedural Note Procedural Note EXAM DATE: 09/14/2024 REFERRING DOCTOR: Dr. Grissom TECHNIQUE: Eighteen channels of EEG, 2 channels of EOG, and 1 channel of EKG were recorded using the International 10/20 system. CLINICAL DATA: The patient was referred for an EEG evaluation for the evidence of seizure disorder. MEDICATIONS: See the chart BACKGROUND ACTIVITY: There was significant amount of electrode artifacts in the recording. The EEG showed moderate amount of diffuse theta and delta activity with intervals of relatively suppressed background activity ACTIVATION: Hyperventilation: Not done Photic Stimulation: Not done Sleep: Not seen IMPRESSION: This is a moderately abnormal EEG, this EEG seen in moderate cerebral dysfunction due to metabolic/hypoxic encephalopathy or medication effects, please correlate clinically The EKG channel showed a regular heart rate of 78/[place] [address] KIT GRISSOM MD September 15, 2024 00:45
[2024-09-15] MEDS: hydrALAZINE HCL 20 MG/ML VL IV PRN (01:06)
[2024-09-15 07:08] LABS: Alanine Aminotransferase 27 U/L (7-40); Albumin 3.2 g/dL (3.2-4.8); Alkaline Phosphatase 104 U/L (46-116); Anion Gap 8 (5-15); Aspartate Aminotransferase 37 U/L (13-40); BUN/Creatinine Ratio 5.8 (10.0-20.0); Bilirubin, Total 0.7 mg/dL (0.2-1.0); Calcium 9.7 mg/dL (8.7-10.4); Carbon Dioxide 28 mmol/L (20-31); Cholesterol 89 mg/dL (< 200); LDL Cholesterol 31 mg/dL (< 100); Magnesium 2.1 mg/dL (1.6-2.6); Phosphorus 3.9 mg/dL (2.4-5.1); Potassium 4.4 mmol/L (3.5-5.1); Sodium 145 mmol/L (136-145); Triglycerides 63 mg/dL (< 150)
[2024-09-15 07:10] LABS: Blood Urea Nitrogen 33 mg/dL (9-23); Chloride 109 mmol/L (98-107); Glucose 131 mg/dL (74-106); HDL Cholesterol 36 mg/dL (40-59)
[2024-09-15 07:12] LABS: INR 1.09 (0.9-1.15); Partial Thromboplastin Time 32.8 SEC (24.5-34.5); Prothrombin Time 11.5 sec (9.3-11.8)
[2024-09-15 07:15] LABS: Basophils # (auto) 0.1 10 ^3/uL (0-0.2); Basophils % (auto) 0.7 % (0.0-2.0); Eosinophils # (auto) 0.2 10 ^3/uL (0-0.8); Eosinophils % (auto) 1.7 % (0.0-7.0); Hematocrit 27.1 % (36.0-46.0); Hemoglobin 9.4 g/dL (12.2-16.2); Lymphocytes # (auto) 0.9 10 ^3/uL (0.4-5.4); Lymphocytes % (auto) 10.3 % (10.0-50.0); Mean Corpuscular Hgb Conc. 34.7 g/dL (32.0-36.0); Mean Corpuscular Volume 89.3 fL (80.0-100.0); Monocytes # (auto) 0.9 10 ^3/uL (0-1.3); Monocytes % (auto) 9.6 % (0.0-12.0); Neutrophils # (auto) 6.9 10 ^3/uL (1.6-8.6); Neutrophils % (auto) 77.7 % (37.0-80.0); Nucleated Red Blood Cells % 1.4 %; Platelet Count (auto) 116 10^3/uL (140-450); Red Blood Cells 3.03 10^6/uL (4.0-5.20); Red Cell Distribution Width 16.7 % (11.8-14.3); White Blood Cell 8.9 10^3/uL (4.4-10.8)
[2024-09-15 08:28] LABS: COVID19 ANTIGEN SOFIA FIA NEGATIVE (NEGATIVE)
[2024-09-15 08:29] LABS: Rapid Influenza A Negative (Negative); Rapid Influenza B Negative (Negative)
--- NOTE | 2024-09-15 09:33 | DVHPN2 ---
Progress Note - Dictate Date Seen: September 15, 2024 Medical Necessity Reason Pt with a Central, PICC or Fol: No Subjective Ms. Wright is a 68 years old female with a history of hypertension, end-stage renal failure on hemodialysis, seizure disorder, she was brought to the [facility] on 09/11/2024 with a chief complaint of altered mental status. I have seen and examined the patient, I have discussed with her nurse, she was awake, but not oriented at all. She moves the arms, vocalize, but is not able to answer questions. She looks stronger today Phenytoin, 09/13/2024: 4.9 ABG, 09/12/2024: CO2 retention WBC/HB/PLT/MCV, 09/12/2024: 4/9.9/160/86.7 BUN/CR, 09/12/2024: 28/6.37 TBI/AST/ALT/AP, 09/12/2024: 0.6/67/30/143 TSH, 09/13/2024: 2.01 EEG, 09/14/24: A moderately abnormal EEG Chest x-ray, 09/11/2024: 1. Moderately severe cardiomegaly 2. Moderate bilateral interstitial changes CT head, 09/12/2024: 1. No acute intracranial hemorrhage 2. No CT findings of territorial ischemia vital signs Vital Sign Date Time Temp Pulse Resp B/P (MAP) Pulse Ox O2 Delivery O2 Flow Rate FiO2 09/15/24 08:52 65 19 151/73 (99) 100 09/14/24 19:59 Nasal Cannula* 4 36 09/14/24 19:40 97.5 97.5 Total Intake and Output 09/14/24 09/14/24 09/15/24 15:00 23:00 07:00 Intake Total 550 ml 250 ml 925 ml Balance 550 ml 250 ml 925 ml medications Current Medications Medications Dose Ordered Sig/Maru Route Start Time Stop Time Status Last Admin Dose Admin Acetaminophen/ Hydrocodone Bitart 1 tab Q4HP PRN PO 09/11/24 19:45 Ondansetron HCl 4 mg Q4HP PRN IV 09/11/24 19:45 Docusate Sodium 100 mg BIDPRN PRN PO 09/11/24 19:45 Acetaminophen 650 mg Q6HP PRN PO 09/11/24 19:45 Nitroglycerin 0.4 mg Q5MINP PRN SL 09/11/24 21:15 Morphine Sulfate 2 mg Q30M PRN IV 09/11/24 21:15 Lorazepam 1 mg Q2HPRN PRN PO 09/11/24 22:00 Cancel Lorazepam 1 mg Q2HPRN PRN IV 09/11/24 22:00 09/15/24 00:03 1 MG Clonidine HCl 0.1 mg Q6HP PRN PO 09/13/24 17:00 Dextrose/Sodium Chloride 1,000 ml @ 75 mls/hr [id number] IV 09/13/24 19:00 09/14/24 21:40 75 MLS/HR Diagnostic Test (Pha) 1 strip Q4HR 09/13/24 22:00 09/15/24 05:33 1 STRIP Enalaprilat 5 mg Q6HP PRN IV 09/13/24 19:45 09/15/24 04:58 5 MG Labetalol HCl 20 mg Q2HPRN PRN IV 09/13/24 19:45 09/15/24 03:39 20 MG Levetiracetam 100 ml @ 400 mls/hr BID IV 09/14/24 10:00 09/14/24 22:22 400 MLS/HR Hydralazine HCl 15 mg Q6HP PRN IV 09/15/24 01:00 09/15/24 07:49 15 MG Nicardipine/ Sodium Chloride 200 ml @ 50 mls/hr Q4H IV 09/15/24 05:45 Nifedipine 60 mg DAILY PO 09/15/24 10:00 objective General: the patient is well developed and nourished. No acute distress. MENTAL STATUS: Subjective SPEECH, LANGUAGE, HIGHER CORTICAL FUNCTION: Subjective CRANIAL NERVES: Intact visual moreno to confrontation. (visual thread) Pupils are equal, round and reactive. EOMs full and conjugate. Facial sensation ok in all three divisions bilaterally. Mandibular strength intact. Facial muscles symmetrical and strength intact. SENSATION: Sensation to touch and pinprick is fine MOTOR: Normal tone in the upper and lower extremity. Normal muscle bulk. No fasciculations. No abnormal movements or posturing. She moves the arms REFLEXES: Deep tendon reflexes are symmetrical. No pathological reflexes. CEREBELLAR/COORDINATION: Deferred GAIT/STATION: deferred. laboratory and microbiology Laboratory Tests 09/15/24 06:30 Test 09/15/24 06:30 Range/Units Serum Glucose 131 H 74-106 mg/dL Problem List Altered mental status, visual hallucination Metabolic encephalopathy Other acute central nervous system disorder, encephalitis, stroke, seizure, less likely Recent shingles History of seizure with atypical feature Assessment/Plan Monitoring Supportive treatment Telemetry Urinalysis Urine drug screening EEG MRI brain scan Keppra 500 mg IV b.i.d. Ativan for seizure breakthrough More recommendation per clinical course This medical document was created using an electronic medical record system with [employer] dictation system. Although this document has been carefully reviewed, there may still be some phonetic and typographical errors. These areas are purely typographical due to imperfections of the software programs, and do not reflect any compromise in the patient's medical care. Prognosis poor Plan discussed with: Other KIT GRISSOM MD September 15, 2024 09:33
[2024-09-15] MEDS: NICARDIPINE HCL IN SODIUM CHLO 200 ML IV SCH (09:45)
[2024-09-15] MEDS: NIFEdipine ER 30 MG TAB PO SCH (10:00)
[2024-09-15 13:11] LABS: Base Excess 2.2 mmol/L (-2.0-3.0)
[2024-09-15] MEDS ORDERED: DEXTROSE (50%) 50ML SYRG IV PRN (13:30)
[2024-09-15] MEDS: D5W/SOD CHLO 0.9% 1,000 ML IV SCH (13:30)
[2024-09-15] MEDS: IOHEXOL 350 MG/ML 100ML IJ ONE (13:41)
[2024-09-15] MEDS: HEPARIN SODIUM (PORCINE) 5000 UNITS/ML 1ML VIAL SC ONE (13:53)
--- NOTE | 2024-09-15 13:55 | DVHINCON2 ---
[facility] 09/15/24 1355: Date Seen: September 15, 2024 Referring Physician MD Boogie Reason for Consultation Critical pulmonary hypertension History of Present Illness This is a 68-year-old female who presented to the emergency room via EMS with a chief complaint of ALOC. At time of assessment, the patient was obtunded and withdrawn with O2 via simple mask. Information obtained from records which indicate the patient was found by her family to be ALOC and having visual hallucinations prompting to call 911. She was last seen normal the night prior. Upon EMS arrival she underwent a blood glucose level of107 mg/dL. She underwent a 12 lead electrocardiogram revealing a sinus rhythm with a prolonged QTc at 505 ms. Serial troponin levels are negative. Significant medical history includes hypertension, seizure activity, end-stage renal disease on hemodialysis, recent shingles, anemia in chronic disease, and obesity. Past Medical History Past medical history reviewed. No other significant than mentioned above. Past Surgical History Bilateral upper extremities AV fistulas, only right-sided working Family History Unable to obtain family history at this time. Social History Unable to obtain social history at this time. Allergies: Coded Allergies: NO KNOWN ALLERGIES (Unverified , 08/05/11) Home Meds Active Scripts Valacyclovir HCl (Valacyclovir HCl) 1 Gm Tab, 1 GM PO TID for 7 Days, #21 TAB Prov:VENU BETTENCOURT DO 09/09/24 Reported Medications Phenytoin Sodium (Dilantin) 100 Mg Cap 08/05/11 Home Meds Home medications reviewed. Current Medications Current Medications Medications (Trade) Dose Ordered Sig/Maru Route PRN Reason Start Time Stop Time Status Last Admin Hydralazine HCl (Apresoline Injection) 15 mg Q6HP PRN IV SBP>150 09/15/24 01:00 09/15/24 07:49 Nicardipine/ Sodium Chloride 200 ml @ 50 mls/hr Q4H IV 09/15/24 05:45 Nifedipine (Procardia Xl (Time-Release)) 60 mg DAILY PO 09/15/24 10:00 Review of Systems Constitutional: No symptom reported Ears, Nose, & Throat: No symptom reported Eyes: No symptom reported Neurological: ALOC Pulmonary/Respiratory: No symptom reported Cardiovascular: No symptom reported Gastrointestinal: No symptom reported Genitourinary: No symptom reported Musculoskeletal: No symptom reported Skin: No symptom reported Psychiatric: No symptom reported Endocrine: No symptom reported Hemotologic/Lymphatic: No symptom reported Vital Signs Vital Signs Date Time Temp Pulse Resp B/P (MAP) Pulse Ox O2 Delivery O2 Flow Rate FiO2 09/15/24 11:47 56 167/86 09/15/24 11:20 20 100 09/15/24 07:20 97.6 97.6 09/15/24 07:20 Nasal Cannula* 4 36 Physical Exam General Appearance: Withdrawn. Obtunded. Mittens on. Seizure pads on [facility] Head Exam: Normal inspection Neck Exam: Normal inspection. Normal alignment Pulmonary/Respiratory: Coarse/crackles to bilateral breath sounds Cardiovascular/Chest: Regular rate and rhythm. S1, S2. Sinus rhythm with prolonged QTc at 505 ms. No murmurs. + JVD. Peripheral Pulses: 2+ Radial (R). 2+ Radial (L). 2+ Pedal (R). 2+ Pedal (L) Abdominal Exam: Normal bowel sounds. Soft. Nontender. No hepatospenomegaly. No masses Ankle Exam: Negative ankle edema Lower extremities: Negative lower extremity edema Neuro/Mental Status: Withdrawn. Obtunded Thoughts/Psych: Unable to assess at this time Appearance: In no acute distress Skin Exam: Normal inspection. Normal color. Warm. Dry Labs/Diagnostic Data Labs Test 09/15/24 13:06 09/15/24 12:31 09/15/24 10:42 09/15/24 06:30 Range/Units Blood Gas Specimen Type Arterial Blood Gas Sample Site Left radial Blood Gas Patient Temperature 37.0 Arterial Blood Date Drawn [id number] Arterial Blood pH 7.433 7.350-7.450 Arterial Blood Partial Pressure CO2 40.7 32.0-45.0 mmHg Arterial Blood Partial Pressure O2 44.0 *L 83.0-108.0 mmHg Arterial Blood HCO3 26.6 21.0-28.0 mmol/L Arterial Blood Oxygen Saturation 79.0 *L 94.0-98.0 % Arterial Blood Base Excess 2.2 -2.0-3.0 mmol/L Arterial Blood Oxyhemoglobin 78.0 L 94.0-98.0 % Arterial Blood Carboxyhemoglobin 0.7 0.5-1.5 % Arterial Blood Methemoglobin 0.6 0.0-1.5 % Hipolito Test Yes Blood Gas Total Hemoglobin 9.40 L 12.0-16.0 g/dL Blood Gas Liter Flow 0.00 Blood Gas Modality Room air FiO2 % 21.0 Blood Gas Critical Value Read Back Yes Blood Gas Notified Whom Elvis josue Blood Gas Notified Time [id number] Blood Gas Notified By Lina director e learning POC Glucose 101 70-106 mg/dl White Blood Count 8.9 4.4-10.8 10^3/uL Red Blood Count 3.03 L 4.0-5.20 10^6/uL Hemoglobin 9.4 L 12.2-16.2 g/dL Hematocrit 27.1 L 36.0-46.0 % Mean Corpuscular Volume 89.3 80.0-100.0 fL Mean Corpuscular Hemoglobin 31.0 28.0-32.0 pg Mean Corpuscular Hemoglobin Concent 34.7 32.0-36.0 g/dL Red Cell Distribution Width 16.7 H 11.8-14.3 % Platelet Count 116 L 140-450 10^3/uL Mean Platelet Volume 8.7 6.9-10.8 fL Neutrophils (%) (Auto) 77.7 37.0-80.0 % Lymphocytes (%) (Auto) 10.3 10.0-50.0 % Monocytes (%) (Auto) 9.6 0.0-12.0 % Eosinophils (%) (Auto) 1.7 0.0-7.0 % Basophils (%) (Auto) 0.7 0.0-2.0 % Neutrophils # (Auto) 6.9 1.6-8.6 10 ^3/uL Lymphocytes # (Auto) 0.9 0.4-5.4 10 ^3/uL Monocytes # (Auto) 0.9 0-1.3 10 ^3/uL Eosinophils # (Auto) 0.2 0-0.8 10 ^3/uL Basophils # (Auto) 0.1 0-0.2 10 ^3/uL Nucleated Red Blood Cells 1.4 % Prothrombin Time 11.5 9.3-11.8 sec Prothrombin Time INR 1.09 0.9-1.15 Activated Partial Thromboplast Time 32.8 24.5-34.5 SEC Sodium Level 145 136-145 mmol/L Potassium Level 4.4 3.5-5.1 mmol/L Chloride Level 109 H 98-107 mmol/L Carbon Dioxide Level 28 20-31 mmol/L Anion Gap 8 5-15 Blood Urea Nitrogen 33 #H 9-23 mg/dL Creatinine 5.71 H 0.550-1.02 mg/dL Glomerular Filtration Rate Calc 8 >90 mL/min BUN/Creatinine Ratio 5.8 L 10.0-20.0 Serum Glucose 131 H 74-106 mg/dL Hemoglobin A1c 4.5 <5.7 % A1C Lactic Acid Level 0.9 0.4-2.0 mmol/L Calcium Level 9.7 8.7-10.4 mg/dL Phosphorus Level 3.9 2.4-5.1 mg/dL Magnesium Level 2.1 1.6-2.6 mg/dL Total Bilirubin 0.7 0.2-1.0 mg/dL Aspartate Amino Transferase (AST) 37 13-40 U/L Alanine Aminotransferase (ALT) 27 7-40 U/L Alkaline Phosphatase 104 46-116 U/L Ammonia 16 11-32 umol/L Total Protein 7.0 5.7-8.2 g/dL Albumin 3.2 3.2-4.8 g/dL Triglycerides Level 63 < 150 mg/dL Cholesterol Level 89 < 200 mg/dL LDL Cholesterol 31 < 100 mg/dL HDL Cholesterol 36 L 40-59 mg/dL Vitamin B12 Level 2175 H 211-911 pg/mL Vitamin D 25-Hydroxy 13.0 L 30.0-100 ng/mL Thyroid Stimulating Hormone (TSH) 1.33 0.55-4.78 uIU/mL Test 09/15/24 06:23 09/13/24 08:37 09/11/24 18:26 Range/Units Influenza Type A Antigen Negative Negative Influenza Type B Antigen Negative Negative SARS-CoV-2 Antigen (Rapid) Negative NEGATIVE Phenytoin (Dilantin) Level 4.9 L 10-20 ug/mL Troponin I High Sensitivity 24 </=34 ng/L Assessment Critical pulmonary hypertension rule out PE Hypertensive emergency Metabolic encephalopathy Possible sepsis Hx of seizure activity Anemia and chronic disease ESRD on HD Obesity Plan/Recommendation (Dr. Garcia) Preliminary echocardiogram revealing critical pulmonary hypertension with RVSP at [address] for a [address] angio with contrast at first available. Continue blood pressure control IV given high risk for aspiration. Pending brain MRI. DVT/VTE prophylaxis. Rest of recommendations per clinical course. Thank you for allowing us to participate in this patient's care. Please call if you have any questions or concerns. Critical care time: 55 min. This medical document was created using an electronic medical record system with voice recognition software and computerized dictation system. Although this document has been carefully reviewed, there might still be some phonetic and typographical errors. Occasional wrong-word or ``sound-alike�� substitutions may have occurred due to the inherent limitations of voice recognition software. These areas are purely typographical due to imperfections of the software programs and do not reflect any compromise in the patient's medical care. Please read the chart carefully and recognize, using context, where these substitutions have occurred. Plan discussed with: Other NYHA Physical activity limitations: NA Date of Service: September 15, 2024 Billing Provider: MARY FARLEY Cardiology Common Codes: [id number] CARE 30-74 MIN VLADIMIR DARDEN DO 09/15/24 1940: Date Seen: September 15, 2024 Allergies: Coded Allergies: NO KNOWN ALLERGIES (Unverified , 08/05/11) Home Meds Active Scripts Valacyclovir HCl (Valacyclovir HCl) 1 Gm Tab, 1 GM PO TID for 7 Days, #21 TAB Prov:SGVENUWill Elizabeth DO 09/09/24 Reported Medications Phenytoin Sodium (Dilantin) 100 Mg Cap 08/05/11 Plan/Recommendation The patient was discussed with Mary Farley, ONLINE MARKETING COORDINATOR. I agree with her Assessment and Plan, which was formulated with me. Plan discussed with: Patient Date of Service: September 15, 2024 Billing Provider: VLADIMIR DARDEN DO Cardiology Common Codes: [id number] INP/OBS CARE (High) MARY FARLEY September 15, 2024 13:55 VLADIMIR DARDEN DO September 15, 2024 19:40
[2024-09-15 15:18] LABS: Hepatitis A Ab IgM Negative; Hepatitis B Core IgM Negative (Negative)
[2024-09-15 15:19] LABS: Hepatitis B Surface Antigen Negative (Negative)
--- NOTE | 2024-09-15 15:20 | DVHPN2 ---
Progress Note - Dictate Date Seen: September 15, 2024 Has the PT tested + for MRSA If YES, has PT been informed?: Yes Medical Necessity Reason Pt with a Central, PICC or Fol: No Subjective Obtunded vital signs Vital Sign Date Time Temp Pulse Resp B/P (MAP) Pulse Ox O2 Delivery O2 Flow Rate FiO2 09/15/24 13:52 199/105 09/15/24 11:47 56 09/15/24 11:20 20 100 09/15/24 07:20 97.6 97.6 09/15/24 07:20 Nasal Cannula* 4 36 Total Intake and Output 09/14/24 09/14/24 09/15/24 15:00 23:00 07:00 Intake Total 550 ml 250 ml 925 ml Balance 550 ml 250 ml 925 ml medications Current Medications Medications Dose Ordered Sig/Maru Route Start Time Stop Time Status Last Admin Dose Admin Acetaminophen/ Hydrocodone Bitart 1 tab Q4HP PRN PO 09/11/24 19:45 Ondansetron HCl 4 mg Q4HP PRN IV 09/11/24 19:45 Docusate Sodium 100 mg BIDPRN PRN PO 09/11/24 19:45 Acetaminophen 650 mg Q6HP PRN PO 09/11/24 19:45 Nitroglycerin 0.4 mg Q5MINP PRN SL 09/11/24 21:15 Morphine Sulfate 2 mg Q30M PRN IV 09/11/24 21:15 Lorazepam 1 mg Q2HPRN PRN PO 09/11/24 22:00 Cancel Lorazepam 1 mg Q2HPRN PRN IV 09/11/24 22:00 09/15/24 00:03 1 MG Enalaprilat 5 mg Q6HP PRN IV 09/13/24 19:45 09/15/24 04:58 5 MG Labetalol HCl 20 mg Q2HPRN PRN IV 09/13/24 19:45 09/15/24 10:38 20 MG Levetiracetam 100 ml @ 400 mls/hr BID IV 09/14/24 10:00 09/15/24 10:36 400 MLS/HR Hydralazine HCl 15 mg Q6HP PRN IV 09/15/24 01:00 09/15/24 13:52 15 MG Nicardipine/ Sodium Chloride 200 ml @ 50 mls/hr Q4H IV 09/15/24 05:45 Dextrose/Sodium Chloride 1,000 ml @ 50 mls/hr Q20H IV 09/15/24 13:30 09/15/24 13:30 50 MLS/HR Diagnostic Test (Pha) 1 strip ACHS 09/15/24 17:00 Dextrose 50 ml UD PRN IV 09/15/24 13:30 Heparin Sodium (Porcine) 5,000 units Q12HR SC 09/15/24 22:00 objective HEENT: No evidence of JVD, no oral ulcers. Pulmonary: Lungs are clear on auscultation bilaterally Cardiovascular S1-S2, no S3 or S4 Abdomen: Bowel sounds positive, soft no rebound tenderness Skin: No rash Neurological: Confused laboratory and microbiology Laboratory Tests 09/15/24 06:30 Test 09/15/24 06:30 Range/Units Serum Glucose 131 H 74-106 mg/dL Assessment/Plan Assessment: ESRD on HD via Rt arm AVG metabolic encephalopathy HTN, Seizure h/o shingles Anemia of CKD secondary hyperparathyroidism Hypokalemia Metabolic acidosis Azotemia Hypothermia Plan: Hemodialysis Friday. Monitor H&H, Rule out PE with CTA Neurology consult On antiseizure meds MRI pending JOSE M post HD as needed. Hb goal 10-11 g/dl Sahil Butcher Plan of care discussed with sister at bedside Thank you very much for allowing us to participate in the care of this patient Dietary Evaluation Review Comments: 1) Continue to provide assistance at mealtime 2) If feeding tube is in place, TF Nepro carb Steady @ 60ml/hr x 20hr. Water flush 50ml Q6H if allowed. TF @ goal volume provides 2160 kcal (100% energy), 98gm protein (100% protein), 872ml free water. 3) TPN if NPO x 7 days 4) Nephro-Amy 1 tab daily, Ergocalciferol 50,000IU 1 cap weekly 5) Continue current plan of care Expected Outcomes/Goals: To meet at least 75% estimated needs FU 2-3 days Plan discussed with: Patient SHAMAR ORELLANA MD September 15, 2024 15:20
[2024-09-15 15:29] LABS: Hepatitis C Antibody Positive (Negative)
--- NOTE | 2024-09-15 16:03 | DVH ---
Indication: Critica pulmonary HTN rule out PE Technique: CT axial images of the chest are obtained with intravenous contrast per CT angiogram prot ocol. Coronal and sagittal reformats were obtained. Radiation Dose Information: CTDI volume is 29.6 mGy. Dose-length product is 331.8 mGy*cm Comparison: None FINDINGS: No large defect within the main left right pulmonary arteries. Segmental and subsegmental branches do not demonstrate definitive defect. Trachea patent. No pneumothorax. Bilateral pulmonary airspace consolidation and ground-glass disease, most pronounced in the lower lobes. Pulmonary emphysematous changes. Interlobular septal thickening. Mild bilateral bronchiectatic changes. Small bilateral pleural effusions, [id number]. S ubcarinal lymph node measuring 2.5 cm. Pretracheal lymph node measuring 1.8 cm. Cardiomegaly. Aortic atherosclerotic disease. No supraclavicular or axillary lymphadenopathy. Reflux of contrast in the hepatic veins and IVC. Small amount of perihepatic ascites fluid. There are bilateral are hemodialysis av fistula /grafts. Diffuse osseous sclerosis IMPRESSION: 1. No evidence for large pulmonary embolism. 2. Bilateral pulmonary airspace consolidation and ground-glass disease most pronounced in the lower l obes, likely secondary to combination of infection/ pneumonia or edema. Follow-up to resolution. 3. Small bilateral pleural effusions, [id number]. 4. Mediastinal lymphadenopathy. 5. Cardiomegaly. Reflux of contrast the hepatic veins and IVC consistent with right heart dysfunction .Soft tissue 6. Edema and anasarca. 7. Diffuse osseous sclerosis, likely secondary to renal osteodystrophy. Other considerations include other metabolic bone processes, osteoblastic metastases. 8. Upper abdominal ascites fluid.
[2024-09-15] MEDS: cefTRIAXone 1GM/50ML D5W 50 ML IV ONE (16:30)
[2024-09-15] MEDS: ACCU-CHEK COMFORT CURVE STRIP VI SCH (17:09)
--- NOTE | 2024-09-15 20:00 | DVH ---
CHEST RADIOGRAPH Indication: CONFIRMATION OF NG TUBE Technique: Single frontal view of the chest was obtained COMPARISON: XY CHEST PORTABLE on DOS: 09/11/24 FINDINGS / IMPRESSION: Lines and Tubes: Interval insertion of NG tube which extends bloated the diaphragm with its tip proje cting over gastric body. Lungs: Increased pulmonary vascularity and bilateral pulmonary infiltrates again noted, progressed co mpared to the prior chest x-ray for 09/11/24. Pleura: No significant pleural effusion. No pneumothorax. Cardiomediastinal contours: Marked cardiomegaly.
--- NOTE | 2024-09-15 22:04 | DVHSR ---
APPROVED REPORT EXAM: Two-dimensional and M-mode echocardiogram with Doppler and color Doppler. Blood Pressure: 176/86 mmHg INDICATION htn emergency RISK FACTORS Height: 5'4, Weight: 176 DIMENSIONS LVDd4.2 (3.8-5.7cm)LA (2D)4.2 (1.9-4.0cm)Aortic Root3.2 (2.0-3.7cm) LVDs3.0 (2.5-4.0cm)LA (MM) (1.9-4.0cm)Aortic Cusp Exc1.4 (1.5-2.0cm) EF (%) 55.0 (55-70%)Rt. Atrium5.1 (1.9-4.0cm)Asc. Aorta3.6 cm IVSd1.0 (0.7-1.1cm)RV (D)4.4 (1.8-2.4cm) PWd0.9 (0.7-1.1cm) Mitral Valve MitralMitral Stenosis E wave1.28m/sMV Mean GR.mmHg A wave0.86m/sMV Peak GR.102mmHg E/A ratio1.52D MVAcm2 DECEL [id number] 1/2 Tim[place] Aortic Valve Aortic ValveAortic Stenosis V10.96m/Mayco Mean GR.5mmHg V21.45m/Mayco Peak GR.8mmHg LVOT Diameter2.0 (1.8-2.4cm)Doppler AVA2.08cm2 Pulmonic Valve V21.03m/s Tricuspid Valve TR Velocity4.92m/s [id number] Other Information Technically limited study due to pt altered, moving and grabbing probe Conclusion Normal LV size and systolic function. LVEF estimated at 55-60%. Abnormal septal motion due to RV pres sure overload. Grade II diastolic dysfunction. Mild RV enlargement with normal systolic function. Mild LA enlargement. Moderate RA enlargement. Trileaflet aortic valve with mild sclerosis. Trace MR. Severe TR. RVSP estimated at 130 mmHg based on an RAP of 15 mmHg. Dilated, noncollapsing IVC. No pericardial effusion.
[2024-09-15] MEDS: HEPARIN SODIUM (PORCINE) 5000 UNITS/ML 1ML VIAL SC SCH (22:26)
--- NOTE | 2024-09-15 22:39 | DVHPN2 ---
Subjective Patient is seen and examined at bedside. Patient to have hemodialysis today. Patient was on nicardipine drip secondary to blood pressure uncontrolled. Reviewed: Care Plan, H&P, Labs, Medications, Previous Orders, Radiology Changes from previous H/P or p: No Changes Eyes: No Pain, No Vision change, No Conjunctivae inflammation, No Eyelid inflammation, No Other, No Redness ENT: No Ear pain, No Ear discharge, No Nose pain, No Nose discharge, No Nose congestion, No Mouth pain, No Mouth swelling, No Throat pain, No Throat swelling, No Other Cardiovascular: No Chest Pain, No Palpitations, No Orthopnea, No Paroxysmal Noc. Dyspnea, No Edema, No Lt Headedness, No Other Respiratory: No Cough, No Dry, No Shortness of breath, No SOB with excertion, No Wheezing, No Hemoptysis, No Pleuritic Pain, No Sputum, No Other Gastrointestinal: No Nausea, No Vomiting, No Abdominal Pain, No Diarrhea, No Constipation, No Melena, No Hematochezia, No Other Genitourinary: No Dysuria, No Frequency, No Incontinence, No Hematuria, No Retention, No Other Musculoskeletal: No other, No neck pain, No shoulder pain, No arm pain, No back pain, No hand pain, No leg pain, No foot pain Skin: No Rash, No Lesions, No Jaundice, No Bruising, No Other Objective Vitals Vital Signs Date Time Temp Pulse Resp B/P (MAP) Pulse Ox O2 Delivery O2 Flow Rate FiO2 09/15/24 19:15 50 20 123/63 (83) 96 09/15/24 07:20 97.6 97.6 09/15/24 07:20 Nasal Cannula* 4 36 Intake/Output Intake and Output 09/15/24 07:00 Intake Total 1725 ml Balance 1725 ml Intake IV Total 1725 ml General Appearance: Other (Confused) HEENT: Atraumatic Lungs: Clear to auscultation Cardiovascular: Regular rate, Normal S1, Normal S2 Abdomen: Normal bowel sounds, Soft Extremities: Other (Right Forearm fistula) Medications Current Medications Medications Dose Ordered Sig/Maru Route Start Time Stop Time Status Last Admin Dose Admin Acetaminophen/ Hydrocodone Bitart 1 tab Q4HP PRN PO 09/11/24 19:45 Ondansetron HCl 4 mg Q4HP PRN IV 09/11/24 19:45 Docusate Sodium 100 mg BIDPRN PRN PO 09/11/24 19:45 Acetaminophen 650 mg Q6HP PRN PO 09/11/24 19:45 Nitroglycerin 0.4 mg Q5MINP PRN SL 09/11/24 21:15 Morphine Sulfate 2 mg Q30M PRN IV 09/11/24 21:15 Lorazepam 1 mg Q2HPRN PRN PO 09/11/24 22:00 Cancel Lorazepam 1 mg Q2HPRN PRN IV 09/11/24 22:00 09/15/24 00:03 1 MG Enalaprilat 5 mg Q6HP PRN IV 09/13/24 19:45 09/15/24 04:58 5 MG Labetalol HCl 20 mg Q2HPRN PRN IV 09/13/24 19:45 09/15/24 10:38 20 MG Levetiracetam 100 ml @ 400 mls/hr BID IV 09/14/24 10:00 09/15/24 22:26 400 MLS/HR Hydralazine HCl 15 mg Q6HP PRN IV 09/15/24 01:00 09/15/24 13:52 15 MG Nicardipine/ Sodium Chloride 200 ml @ 50 mls/hr Q4H IV 09/15/24 05:45 09/15/24 17:45 50 MLS/HR Dextrose/Sodium Chloride 1,000 ml @ 50 mls/hr Q20H IV 09/15/24 13:30 09/15/24 13:30 50 MLS/HR Diagnostic Test (Pha) 1 strip ACHS 09/15/24 17:00 09/15/24 17:09 1 STRIP Dextrose 50 ml UD PRN IV 09/15/24 13:30 Heparin Sodium (Porcine) 5,000 units Q12HR SC 09/15/24 22:00 09/15/24 22:26 5,000 UNITS Ceftriaxone Sodium 50 ml @ 100 mls/hr DAILY@09 IV 09/16/24 09:00 Laboratory Results Laboratory Tests 09/15/24 06:30 Chemistry Test 09/15/24 06:30 Albumin 3.2 g/dL (3.2-4.8) Calcium Level 9.7 mg/dL (8.7-10.4) Magnesium Level 2.1 mg/dL (1.6-2.6) Phosphorus Level 3.9 mg/dL (2.4-5.1) Total Protein 7.0 g/dL (5.7-8.2) Coagulation Test 09/15/24 06:30 Prothrombin Time 11.5 sec (9.3-11.8) Prothrombin Time INR 1.09 (0.9-1.15) Activated Partial Thromboplast Time 32.8 SEC (24.5-34.5) Lipid panel Test 09/15/24 06:30 Cholesterol Level 89 mg/dL (< 200) HDL Cholesterol 36 mg/dL (40-59) L Triglycerides Level 63 mg/dL (< 150) LFT Test 09/15/24 06:30 Alanine Aminotransferase (ALT) 27 U/L (7-40) Alkaline Phosphatase 104 U/L (46-116) Aspartate Amino Transferase (AST) 37 U/L (13-40) Total Bilirubin 0.7 mg/dL (0.2-1.0) HgA1c, TSH Test 09/15/24 06:30 Hemoglobin A1c 4.5 % A1C (<5.7) Thyroid Stimulating Hormone (TSH) 1.33 uIU/mL (0.55-4.78) Blood Gas Results Test 09/15/24 13:06 Arterial Blood pH 7.433 (7.350-7.450) FiO2 % 21.0 Labs and/or images reviewed: Labs reviewed by me Assessment/Plan Assessment/Plan Metabolic encephalopathy from uremia- Improving ESRD (end stage renal failure)- Cont HD Hypertensive Emergency- Monitor and adjust meds Hypokalemia Continue current management. The patient is still very confused. Hemodialysis per schedule. Continuing hypertensive medication. Hydralazine p.r.n. for systolic blood pressure greater than 160 Replace electrolytes as needed Hemodialysis today per schedule Nicardipine drip to keep the systolic blood pressure less than 160. Upgrade to ICU This medical document was created using an electronic medical record system with [employer] direct computerized dictation system. Although this document has been carefully reviewed, there may still be some phonetic and typographical errors. These areas are purely typographical due to imperfections of the software programs, and do not reflect any compromise in the patient's medical care. Plan discussed with: Other (RN) My Orders Orders - TOSHIA OJEDA MD Procedure Category Date Status Time Mrsa Screen BHARATH 09/15/24 In Process 06:23 Chest Xray 1 View XY 09/15/24 Resulted 17:44 Date of Service: September 15, 2024 Billing Provider: TOSHIA OJEDA MD Common Visit Codes: [id number] INP/OBS CARE(HIGH) TOSHIA OJEDA MD September 15, 2024 22:39
--- NOTE | 2024-09-15 22:39 | DVHPN2 ---
Subjective The patient is seen and examined at bedside. Very confused and sleepy. Reviewed: Care Plan, H&P, Labs, Medications, Previous Orders, Radiology Changes from previous H/P or p: No Changes Eyes: No Pain, No Vision change, No Conjunctivae inflammation, No Eyelid inflammation, No Other, No Redness ENT: No Ear pain, No Ear discharge, No Nose pain, No Nose discharge, No Nose congestion, No Mouth pain, No Mouth swelling, No Throat pain, No Throat swelling, No Other Cardiovascular: No Chest Pain, No Palpitations, No Orthopnea, No Paroxysmal Noc. Dyspnea, No Edema, No Lt Headedness, No Other Respiratory: No Cough, No Dry, No Shortness of breath, No SOB with excertion, No Wheezing, No Hemoptysis, No Pleuritic Pain, No Sputum, No Other Gastrointestinal: No Nausea, No Vomiting, No Abdominal Pain, No Diarrhea, No Constipation, No Melena, No Hematochezia, No Other Genitourinary: No Dysuria, No Frequency, No Incontinence, No Hematuria, No Retention, No Other Musculoskeletal: No other, No neck pain, No shoulder pain, No arm pain, No back pain, No hand pain, No leg pain, No foot pain Skin: No Rash, No Lesions, No Jaundice, No Bruising, No Other Objective Vitals Vital Signs Date Time Temp Pulse Resp B/P (MAP) Pulse Ox O2 Delivery O2 Flow Rate FiO2 09/15/24 19:15 50 20 123/63 (83) 96 09/15/24 07:20 97.6 97.6 09/15/24 07:20 Nasal Cannula* 4 36 Intake/Output Intake and Output 09/15/24 07:00 Intake Total 1725 ml Balance 1725 ml Intake IV Total 1725 ml General Appearance: Alert, Other (Confused and altered mental status) HEENT: Atraumatic Lungs: Clear to auscultation Cardiovascular: Regular rate, Normal S1, Normal S2 Abdomen: Normal bowel sounds, Soft Extremities: Other (Right Forearm fistula) Medications Current Medications Medications Dose Ordered Sig/Maru Route Start Time Stop Time Status Last Admin Dose Admin Acetaminophen/ Hydrocodone Bitart 1 tab Q4HP PRN PO 09/11/24 19:45 Ondansetron HCl 4 mg Q4HP PRN IV 09/11/24 19:45 Docusate Sodium 100 mg BIDPRN PRN PO 09/11/24 19:45 Acetaminophen 650 mg Q6HP PRN PO 09/11/24 19:45 Nitroglycerin 0.4 mg Q5MINP PRN SL 09/11/24 21:15 Morphine Sulfate 2 mg Q30M PRN IV 09/11/24 21:15 Lorazepam 1 mg Q2HPRN PRN PO 09/11/24 22:00 Cancel Lorazepam 1 mg Q2HPRN PRN IV 09/11/24 22:00 09/15/24 00:03 1 MG Enalaprilat 5 mg Q6HP PRN IV 09/13/24 19:45 09/15/24 04:58 5 MG Labetalol HCl 20 mg Q2HPRN PRN IV 09/13/24 19:45 09/15/24 10:38 20 MG Levetiracetam 100 ml @ 400 mls/hr BID IV 09/14/24 10:00 09/15/24 22:26 400 MLS/HR Hydralazine HCl 15 mg Q6HP PRN IV 09/15/24 01:00 09/15/24 13:52 15 MG Nicardipine/ Sodium Chloride 200 ml @ 50 mls/hr Q4H IV 09/15/24 05:45 09/15/24 17:45 50 MLS/HR Dextrose/Sodium Chloride 1,000 ml @ 50 mls/hr Q20H IV 09/15/24 13:30 09/15/24 13:30 50 MLS/HR Diagnostic Test (Pha) 1 strip ACHS 09/15/24 17:00 09/15/24 17:09 1 STRIP Dextrose 50 ml UD PRN IV 09/15/24 13:30 Heparin Sodium (Porcine) 5,000 units Q12HR SC 09/15/24 22:00 09/15/24 22:26 5,000 UNITS Ceftriaxone Sodium 50 ml @ 100 mls/hr DAILY@09 IV 09/16/24 09:00 Laboratory Results Laboratory Tests 09/15/24 06:30 Chemistry Test 09/15/24 06:30 Albumin 3.2 g/dL (3.2-4.8) Calcium Level 9.7 mg/dL (8.7-10.4) Magnesium Level 2.1 mg/dL (1.6-2.6) Phosphorus Level 3.9 mg/dL (2.4-5.1) Total Protein 7.0 g/dL (5.7-8.2) Coagulation Test 09/15/24 06:30 Prothrombin Time 11.5 sec (9.3-11.8) Prothrombin Time INR 1.09 (0.9-1.15) Activated Partial Thromboplast Time 32.8 SEC (24.5-34.5) Lipid panel Test 09/15/24 06:30 Cholesterol Level 89 mg/dL (< 200) HDL Cholesterol 36 mg/dL (40-59) L Triglycerides Level 63 mg/dL (< 150) LFT Test 09/15/24 06:30 Alanine Aminotransferase (ALT) 27 U/L (7-40) Alkaline Phosphatase 104 U/L (46-116) Aspartate Amino Transferase (AST) 37 U/L (13-40) Total Bilirubin 0.7 mg/dL (0.2-1.0) HgA1c, TSH Test 09/15/24 06:30 Hemoglobin A1c 4.5 % A1C (<5.7) Thyroid Stimulating Hormone (TSH) 1.33 uIU/mL (0.55-4.78) Blood Gas Results Test 09/15/24 13:06 Arterial Blood pH 7.433 (7.350-7.450) FiO2 % 21.0 Labs and/or images reviewed: Labs reviewed by me Assessment/Plan Assessment/Plan Metabolic encephalopathy from uremia- Improving ESRD (end stage renal failure)- Cont HD Hypertensive Emergency- Monitor and adjust meds Hypokalemia Continue current management. The patient is still very confused. Hemodialysis per schedule. Continuing hypertensive medication. Hydralazine p.r.n. for systolic blood pressure greater than 160 Replace electrolytes as needed This medical document was created using an electronic medical record system with [employer] [place] direct computerized dictation system. Although this document has been carefully reviewed, there may still be some phonetic and typographical errors. These areas are purely typographical due to imperfections of the software programs, and do not reflect any compromise in the patient's medical care. Plan discussed with: Patient My Orders Orders - TOSHIA OJEDA MD Procedure Category Date Status Time Mrsa Screen BHARATH 09/15/24 In Process 06:23 Chest Xray 1 View XY 09/15/24 Resulted 17:44 Date of Service: September 14, 2024 Billing Provider: TOSHIA OJEDA MD Common Visit Codes: [id number] INP/OBS CARE(HIGH) TOSHIA OJEDA MD September 15, 2024 22:39
--- NOTE | 2024-09-15 23:14 | DVHINCON2 ---
Date of service: September 15, 2024 Referring Physician Zayra Tripp MD Reason for Consultation Acute hypoxic respiratory failure, pulmonary hypertension and pleural effusion History of Present Illness A 68-year-old woman with past medical history of end-stage renal disease, hypertension, and seizures who presented to ED on 09/11/24 for evaluation of altered level of consciousness. Per EMS, patient was found by family altered and having visual hallucinations. Patient mentioned possible seizure on AM of presentation, and she was aware of the hallucinations. She denied fever, chills, N/V or other complaints. ED workup showed WBC 6.0, hemoglobin 10.2, hematocrit 29.5, platelets 98102. Sodium 135, potassium 3.6, BUN 20, creatinine 5.37, glucose 107, AST 76, ALT 39, troponin 24, protein 9.0. Initial BP was 188/96 trending down to 131/83, heart rate 77, temperature 97.6� F, O2 saturation 96% on oxygen. Patient was admitted for further care, and pulmonary consultation was requested for evaluation and management of acute hypoxic respiratory failure, pulmonary hypertension and pleural effusion. Review of Systems: 14-point review of systems negative unless otherwise noted above. Past Medical History: End-stage renal disease, hypertension, and seizures Past Surgical History: None Medications: Reviewed. Allergies: No known drug allergies. Family History: No family history of premature CAD. No family history of lung disorders. Social History: Nonsmoker. No alcohol or illicit drug use. Allergies: Coded Allergies: Diphenhydramine (Verified Allergy, Unknown, 09/16/24) Gabapentin (Verified Allergy, Unknown, 09/16/24) Home Meds Active Scripts Valacyclovir HCl (Valacyclovir HCl) 1 Gm Tab, 1 GM PO TID for 7 Days, #21 TAB Prov:VENU BETTENCOURT DO 09/09/24 Reported Medications Phenytoin Sodium (Dilantin) 100 Mg Cap 08/05/11 Current Medications Current Medications Medications (Trade) Dose Ordered Sig/Maru Route PRN Reason Start Time Stop Time Status Last Admin Hydralazine HCl (Apresoline Injection) 15 mg Q6HP PRN IV SBP>150 09/15/24 01:00 09/15/24 13:52 Nicardipine/ Sodium Chloride 200 ml @ 50 mls/hr Q4H IV 09/15/24 05:45 09/15/24 17:45 Nifedipine (Procardia Xl (Time-Release)) 60 mg DAILY PO 09/15/24 10:00 09/15/24 13:41 DC Dextrose/Sodium Chloride 1,000 ml @ 50 mls/hr Q20H IV 09/15/24 13:30 09/15/24 13:30 Diagnostic Test (Pha) (Accu-Chek Comfort Curve T) 1 strip ACHS 09/15/24 17:00 09/15/24 17:09 Dextrose 50 ml UD PRN IV Blood Sugar LESS THAN 60 09/15/24 13:30 Heparin Sodium (Porcine) 5,000 units Q12HR SC 09/15/24 22:00 09/15/24 22:26 Ceftriaxone Sodium 50 ml @ 100 mls/hr DAILY@09 IV 09/16/24 09:00 Vital Signs Vital Signs Date Time Temp Pulse Resp B/P (MAP) Pulse Ox O2 Delivery O2 Flow Rate FiO2 09/15/24 19:15 50 20 123/63 (83) 96 09/15/24 07:20 97.6 97.6 09/15/24 07:20 Nasal Cannula* 4 36 Physical Exam Gen.: Patient lying in bed in no apparent distress. On supplemental oxygen. Head: Normocephalic, atraumatic. Eyes: EOMI/PERRLA. Ears: Normal hearing. Normal anatomy. Neck/trachea: Trachea midline, supple. Nose: Normal external anatomy. Mouth: Moist mucous membranes. Chest: Decreased air entry bilaterally. No wheezing or rhonchi. Cardiovascular: Positive S1, positive S2. Regular rate and rhythm. Abdomen: Positive bowel sounds in all 4 quadrants. Soft, non-tender, non- distended. : Deferred. Rectal: Deferred. Skin: Warm, dry. Intact. Extremities: 2+ radial pulses bilaterally. No lower extremity edema. Neuro: Awake, alert, oriented x3. No gross motor or sensory deficits. Cranial nerves II through XII intact. Gait not assessed. Labs/Diagnostic Data Labs Test 09/15/24 17:10 09/15/24 13:53 09/15/24 13:06 09/15/24 06:30 Range/Units POC Glucose 102 70-106 mg/dl Hepatitis A IgM Antibody Negative Hepatitis B Surface Antigen Negative Negative Hepatitis B Core IgM Antibody Negative Negative Hepatitis C Antibody Positive *A Negative Blood Gas Specimen Type Arterial Blood Gas Sample Site Left radial Blood Gas Patient Temperature 37.0 Arterial Blood Date Drawn [id number] Arterial Blood pH 7.433 7.350-7.450 Arterial Blood Partial Pressure CO2 40.7 32.0-45.0 mmHg Arterial Blood Partial Pressure O2 44.0 *L 83.0-108.0 mmHg Arterial Blood HCO3 26.6 21.0-28.0 mmol/L Arterial Blood Oxygen Saturation 79.0 *L 94.0-98.0 % Arterial Blood Base Excess 2.2 -2.0-3.0 mmol/L Arterial Blood Oxyhemoglobin 78.0 L 94.0-98.0 % Arterial Blood Carboxyhemoglobin 0.7 0.5-1.5 % Arterial Blood Methemoglobin 0.6 0.0-1.5 % Hipolito Test Yes Blood Gas Total Hemoglobin 9.40 L 12.0-16.0 g/dL Blood Gas Liter Flow 0.00 Blood Gas Modality Room air FiO2 % 21.0 Blood Gas Critical Value Read Back Yes Blood Gas Notified Whom Elvis josue Blood Gas Notified Time [id number] Blood Gas Notified By Lina jones White Blood Count 8.9 4.4-10.8 10^3/uL Red Blood Count 3.03 L 4.0-5.20 10^6/uL Hemoglobin 9.4 L 12.2-16.2 g/dL Hematocrit 27.1 L 36.0-46.0 % Mean Corpuscular Volume 89.3 80.0-100.0 fL Mean Corpuscular Hemoglobin 31.0 28.0-32.0 pg Mean Corpuscular Hemoglobin Concent 34.7 32.0-36.0 g/dL Red Cell Distribution Width 16.7 H 11.8-14.3 % Platelet Count 116 L 140-450 10^3/uL Mean Platelet Volume 8.7 6.9-10.8 fL Neutrophils (%) (Auto) 77.7 37.0-80.0 % Lymphocytes (%) (Auto) 10.3 10.0-50.0 % Monocytes (%) (Auto) 9.6 0.0-12.0 % Eosinophils (%) (Auto) 1.7 0.0-7.0 % Basophils (%) (Auto) 0.7 0.0-2.0 % Neutrophils # (Auto) 6.9 1.6-8.6 10 ^3/uL Lymphocytes # (Auto) 0.9 0.4-5.4 10 ^3/uL Monocytes # (Auto) 0.9 0-1.3 10 ^3/uL Eosinophils # (Auto) 0.2 0-0.8 10 ^3/uL Basophils # (Auto) 0.1 0-0.2 10 ^3/uL Nucleated Red Blood Cells 1.4 % Prothrombin Time 11.5 9.3-11.8 sec Prothrombin Time INR 1.09 0.9-1.15 Activated Partial Thromboplast Time 32.8 24.5-34.5 SEC Sodium Level 145 136-145 mmol/L Potassium Level 4.4 3.5-5.1 mmol/L Chloride Level 109 H 98-107 mmol/L Carbon Dioxide Level 28 20-31 mmol/L Anion Gap 8 5-15 Blood Urea Nitrogen 33 #H 9-23 mg/dL Creatinine 5.71 H 0.550-1.02 mg/dL Glomerular Filtration Rate Calc 8 >90 mL/min BUN/Creatinine Ratio 5.8 L 10.0-20.0 Serum Glucose 131 H 74-106 mg/dL Hemoglobin A1c 4.5 <5.7 % A1C Lactic Acid Level 0.9 0.4-2.0 mmol/L Calcium Level 9.7 8.7-10.4 mg/dL Phosphorus Level 3.9 2.4-5.1 mg/dL Magnesium Level 2.1 1.6-2.6 mg/dL Total Bilirubin 0.7 0.2-1.0 mg/dL Aspartate Amino Transferase (AST) 37 13-40 U/L Alanine Aminotransferase (ALT) 27 7-40 U/L Alkaline Phosphatase 104 46-116 U/L Ammonia 16 11-32 umol/L Total Protein 7.0 5.7-8.2 g/dL Albumin 3.2 3.2-4.8 g/dL Triglycerides Level 63 < 150 mg/dL Cholesterol Level 89 < 200 mg/dL LDL Cholesterol 31 < 100 mg/dL HDL Cholesterol 36 L 40-59 mg/dL Vitamin B12 Level 2175 H 211-911 pg/mL Vitamin D 25-Hydroxy 13.0 L 30.0-100 ng/mL Thyroid Stimulating Hormone (TSH) 1.33 0.55-4.78 uIU/mL Test 09/15/24 06:23 09/13/24 08:37 09/11/24 18:26 Range/Units Influenza Type A Antigen Negative Negative Influenza Type B Antigen Negative Negative SARS-CoV-2 Antigen (Rapid) Negative NEGATIVE Phenytoin (Dilantin) Level 4.9 L 10-20 ug/mL Troponin I High Sensitivity 24 </=34 ng/L Assessment Impression: Acute hypoxic respiratory failure Dependence on supplemental oxygen Acute metabolic encephalopathy End-stage renal disease, on hemodialysis Generalized weakness Pulmonary hypertension, RVSP 120 mmHg GGO on imaging Pleural effusion, left greater than right Atelectasis Mediastinal lymphadenopathy Plan: Supplemental oxygen 4 LPM NC Titrate to keep O2 sats above 92%. Taper O2 as tolerated. CXR reviewed; demonstrates increased pulmonary vascularity and bilateral pulmonary infiltrates again noted, progressed compared to study on 09/11/24. Cardiomegaly. Head of bed elevation Aspiration precautions Follow up Echo report Cardiology recommendations appreciated If blood pressure tolerates, will consider sildenafil. Continue antibiotics Incentive spirometry HD per Nephrology Follow up Nephrology recommendations Monitor renal function. Monitor electrolytes. Supplement as necessary. Monitor ins and outs. DVT prophylaxis. Prognosis: Poor given patient's multiple co-morbidities. Rest of plan per hospitalist and other consultants. Thank you, Dr. Tripp, for allowing me to participate in this patient's care. Further recommendations will depend on the patient's clinical course. Please do not hesitate to contact me if you have any questions or concerns. This medical document was created using an electronic medical record system with [employer] dictation system. Although these documentations are being carefully reviewed, there may still be some phonetic and typographical changes. The errors are purely typographical, due to imperfection on the software program, and do not reflect any compromise in the patient's medical care. Plan discussed with: Patient, Other (GEORGIE Aranda/Dr. Tripp) BIANCA TAM MD September 15, 2024 23:14
[2024-09-16] VITALS (32 sets, daily range): BP systolic 124–162; BP diastolic 56–78; PULSE 55–75; RESP 9–33; TEMP 91.4–97.5; O2SAT 85–100
[2024-09-16 04:31] LABS: Base Excess 0.3 mmol/L (-2.0-3.0)
[2024-09-16] MEDS ORDERED: VANCOMYCIN PER PHARMACY 0 MG IV SCH (06:15)
[2024-09-16 06:43] LABS: Alanine Aminotransferase 22 U/L (7-40); Albumin 3.3 g/dL (3.2-4.8); Alkaline Phosphatase 92 U/L (46-116); Anion Gap 11 (5-15); Aspartate Aminotransferase 34 U/L (13-40); Bilirubin, Total 0.4 mg/dL (0.2-1.0); Calcium 8.9 mg/dL (8.7-10.4); Carbon Dioxide 24 mmol/L (20-31); Potassium 4.3 mmol/L (3.5-5.1); Total Protein 7.3 g/dL (5.7-8.2)
[2024-09-16 06:50] LABS: Blood Urea Nitrogen 32 mg/dL (9-23); Chloride 110 mmol/L (98-107); Glucose 67 mg/dL (74-106); Sodium 145 mmol/L (136-145)
[2024-09-16 08:15] LABS: Hematocrit 26.1 % (36.0-46.0); Hemoglobin 8.5 g/dL (12.2-16.2); Mean Corpuscular Hemoglobin 29.9 pg (28.0-32.0); Mean Corpuscular Hgb Conc. 32.6 g/dL (32.0-36.0); Mean Corpuscular Volume 91.5 fL (80.0-100.0); Platelet Count (auto) 116 10^3/uL (140-450); Red Blood Cells 2.86 10^6/uL (4.0-5.20); Red Cell Distribution Width 17.8 % (11.8-14.3); White Blood Cell 5.5 10^3/uL (4.4-10.8)
[2024-09-16 08:18] LABS: Basophils % (manual) 0 (0.0-2.0); Blast Cells 0; Eosinophils % (manual) 0 (0-7); Metamyelocytes % 0; Myelocytes % 0; Promyelocytes % 0; Reactive Lymphocytes 0
[2024-09-16 08:39] LABS: Band Neutrophils % (manual) 1; Lymphocytes % (manual) 23 (10.0-50.0); Monocytes % (manual) 9 (0-12); Platelet Estimate Decreased
[2024-09-16] MEDS ORDERED: cefTRIAXone 1GM/50ML D5W 50 ML IV SCH (09:00)
[2024-09-16] MEDS: ERGOCALCIFEROL 50,000 UNIT(1.25MG) CAP PO SCH (09:34)
[2024-09-16] MEDS ORDERED: NIFEdipine ER 30 MG TAB PO SCH (10:00)
--- NOTE | 2024-09-16 10:10 | DVHPN2 ---
Progress Note - Dictate Date Seen: September 16, 2024 Has the PT tested + for MRSA If YES, has PT been informed?: Yes Medical Necessity Reason Pt with a Central, PICC or Fol: No Subjective Ms. Wright is a 68 years old female with a history of hypertension, end-stage renal failure on hemodialysis, seizure disorder, she was brought to the [facility] on 09/11/2024 with a chief complaint of altered mental status. I have seen and examined the patient, I have discussed with her nurse, she is awake, not oriented, but she tries to answer questions, her voice is to slurry to understand. She moves the arms Phenytoin, 09/13/2024: 4.9 ABG, 09/12/2024: CO2 retention WBC/HB/PLT/MCV, 09/12/2024: 4/9.9/160/86.7 BUN/CR, 09/12/2024: 28/6.37 TBI/AST/ALT/AP, 09/12/2024: 0.6/67/30/143 TSH, 09/13/2024: 2.01 EEG, 09/14/24: A moderately abnormal EEG Chest x-ray, 09/11/2024: 1. Moderately severe cardiomegaly 2. Moderate bilateral interstitial changes CT head, 09/12/2024: 1. No acute intracranial hemorrhage 2. No CT findings of territorial ischemia vital signs Vital Sign Date Time Temp Pulse Resp B/P (MAP) Pulse Ox O2 Delivery O2 Flow Rate FiO2 09/16/24 09:45 97.5 70 32 130/73 (92) 99 97.5 09/16/24 07:40 Simple Mask* 8 60 Total Intake and Output 09/15/24 09/15/24 09/16/24 15:00 23:00 07:00 Intake Total 300 ml 800 ml 1250 ml Output Total 0 ml Balance 300 ml 800 ml 1250 ml medications Current Medications Medications Dose Ordered Sig/Maru Route Start Time Stop Time Status Last Admin Dose Admin Acetaminophen/ Hydrocodone Bitart 1 tab Q4HP PRN PO 09/11/24 19:45 Docusate Sodium 100 mg BIDPRN PRN PO 09/11/24 19:45 Acetaminophen 650 mg Q6HP PRN PO 09/11/24 19:45 Morphine Sulfate 2 mg Q30M PRN IV 09/11/24 21:15 Lorazepam 1 mg Q2HPRN PRN PO 09/11/24 22:00 Cancel Lorazepam 1 mg Q2HPRN PRN IV 09/11/24 22:00 09/15/24 00:03 1 MG Enalaprilat 5 mg Q6HP PRN IV 09/13/24 19:45 09/15/24 04:58 5 MG Labetalol HCl 20 mg Q2HPRN PRN IV 09/13/24 19:45 09/15/24 10:38 20 MG Levetiracetam 100 ml @ 400 mls/hr BID IV 09/14/24 10:00 09/15/24 22:26 400 MLS/HR Hydralazine HCl 15 mg Q6HP PRN IV 09/15/24 01:00 09/15/24 13:52 15 MG Dextrose/Sodium Chloride 1,000 ml @ 50 mls/hr Q20H IV 09/15/24 13:30 09/16/24 01:20 50 MLS/HR Diagnostic Test (Pha) 1 strip ACHS 09/15/24 17:00 09/16/24 06:29 1 STRIP Dextrose 50 ml UD PRN IV 09/15/24 13:30 Heparin Sodium (Porcine) 5,000 units Q12HR SC 09/15/24 22:00 09/15/24 22:26 5,000 UNITS Ergocalciferol 50,000 unit Q7D PO 09/16/24 09:00 Vancomycin HCl 0 ml @ 0 mls/hr UD IV 09/16/24 06:15 Meropenem 50 ml @ 17 mls/hr DAILY IV 09/16/24 10:00 Pantoprazole Sodium 40 mg DAILY IV 09/16/24 10:00 Nifedipine 60 mg DAILY PO 09/16/24 10:00 objective General: the patient is well developed and nourished. No acute distress. MENTAL STATUS: Subjective SPEECH, LANGUAGE, HIGHER CORTICAL FUNCTION: Subjective CRANIAL NERVES: Intact visual moreno to confrontation. (visual thread) Pupils are equal, round and reactive. EOMs full and conjugate. Facial sensation ok in all three divisions bilaterally. Mandibular strength intact. Facial muscles symmetrical and strength intact. SENSATION: Sensation to touch and pinprick is fine MOTOR: Normal tone in the upper and lower extremity. Normal muscle bulk. No fasciculations. No abnormal movements or posturing. She moves the arms REFLEXES: Deep tendon reflexes are symmetrical. No pathological reflexes. CEREBELLAR/COORDINATION: Deferred GAIT/STATION: deferred. laboratory and microbiology Laboratory Tests 09/16/24 06:09 Test 09/16/24 06:09 Range/Units Serum Glucose 67 L 74-106 mg/dL Problem List Altered mental status, visual hallucination Metabolic encephalopathy Other acute central nervous system disorder, encephalitis, stroke, seizure, less likely Recent shingles History of seizure with atypical feature Assessment/Plan Monitoring Supportive treatment Telemetry Urinalysis Urine drug screening MRI brain scan Keppra 500 mg IV b.i.d. Ativan for seizure breakthrough More recommendation per clinical course This medical document was created using an electronic medical record system with [employer] dictation system. Although this document has been carefully reviewed, there may still be some phonetic and typographical errors. These areas are purely typographical due to imperfections of the software programs, and do not reflect any compromise in the patient's medical care. Prognosis poor Dietary Evaluation Review Comments: 1) Continue to provide assistance at mealtime 2) If feeding tube is in place, TF Nepro carb Steady @ 60ml/hr x 20hr. Water flush 50ml Q6H if allowed. TF @ goal volume provides 2160 kcal (100% energy), 98gm protein (100% protein), 872ml free water. 3) TPN if NPO x 7 days 4) Nephro-Amy 1 tab daily, Ergocalciferol 50,000IU 1 cap weekly 5) Continue current plan of care Expected Outcomes/Goals: To meet at least 75% estimated needs FU 2-3 days Plan discussed with: Other KIT GRISSOM MD September 16, 2024 10:10
[2024-09-16] MEDS: MEROPENEM 1GM IVPB 50 ML IV SCH (10:41)
[2024-09-16] MEDS: PANTOPRAZOLE 40 MG/10 ML VIAL INJ IV SCH (10:41)
[2024-09-16] MEDS: NIFEdipine ER 30 MG TAB PO SCH (10:50)
--- NOTE | 2024-09-16 11:06 | DVHPN2 ---
Subjective Patient is seen and examined at bedside. Still very altered and sleepy. Reviewed: Care Plan, H&P, Labs, Medications, Previous Orders, Radiology Changes from previous H/P or p: No Changes Eyes: No Pain, No Vision change, No Conjunctivae inflammation, No Eyelid inflammation, No Other, No Redness ENT: No Ear pain, No Ear discharge, No Nose pain, No Nose discharge, No Nose congestion, No Mouth pain, No Mouth swelling, No Throat pain, No Throat swelling, No Other Cardiovascular: No Chest Pain, No Palpitations, No Orthopnea, No Paroxysmal Noc. Dyspnea, No Edema, No Lt Headedness, No Other Respiratory: No Cough, No Dry, No Shortness of breath, No SOB with excertion, No Wheezing, No Hemoptysis, No Pleuritic Pain, No Sputum, No Other Gastrointestinal: No Nausea, No Vomiting, No Abdominal Pain, No Diarrhea, No Constipation, No Melena, No Hematochezia, No Other Genitourinary: No Dysuria, No Frequency, No Incontinence, No Hematuria, No Retention, No Other Musculoskeletal: No other, No neck pain, No shoulder pain, No arm pain, No back pain, No hand pain, No leg pain, No foot pain Skin: No Rash, No Lesions, No Jaundice, No Bruising, No Other Objective Vitals Vital Signs Date Time Temp Pulse Resp B/P (MAP) Pulse Ox O2 Delivery O2 Flow Rate FiO2 09/16/24 09:45 97.5 70 32 130/73 (92) 99 97.5 09/16/24 07:40 Simple Mask* 8 60 Intake/Output Intake and Output 09/16/24 07:00 Intake Total 2350 ml Output Total 0 ml Balance 2350 ml Intake Oral 0 ml IV Total 2350 ml Output Urine Total 0 ml General Appearance: Other (Confused) HEENT: Atraumatic Lungs: Clear to auscultation Cardiovascular: Regular rate, Normal S1, Normal S2 Abdomen: Normal bowel sounds, Soft Extremities: Other (Right Forearm fistula) Medications Current Medications Medications Dose Ordered Sig/Maru Route Start Time Stop Time Status Last Admin Dose Admin Acetaminophen/ Hydrocodone Bitart 1 tab Q4HP PRN PO 09/11/24 19:45 Docusate Sodium 100 mg BIDPRN PRN PO 09/11/24 19:45 Acetaminophen 650 mg Q6HP PRN PO 09/11/24 19:45 Morphine Sulfate 2 mg Q30M PRN IV 09/11/24 21:15 Lorazepam 1 mg Q2HPRN PRN PO 09/11/24 22:00 Cancel Lorazepam 1 mg Q2HPRN PRN IV 09/11/24 22:00 09/15/24 00:03 1 MG Enalaprilat 5 mg Q6HP PRN IV 09/13/24 19:45 09/15/24 04:58 5 MG Labetalol HCl 20 mg Q2HPRN PRN IV 09/13/24 19:45 09/15/24 10:38 20 MG Levetiracetam 100 ml @ 400 mls/hr BID IV 09/14/24 10:00 09/16/24 10:41 400 MLS/HR Hydralazine HCl 15 mg Q6HP PRN IV 09/15/24 01:00 09/15/24 13:52 15 MG Dextrose/Sodium Chloride 1,000 ml @ 50 mls/hr Q20H IV 09/15/24 13:30 09/16/24 01:20 50 MLS/HR Diagnostic Test (Pha) 1 strip ACHS 09/15/24 17:00 09/16/24 06:29 1 STRIP Dextrose 50 ml UD PRN IV 09/15/24 13:30 Heparin Sodium (Porcine) 5,000 units Q12HR SC 09/15/24 22:00 09/16/24 10:44 5,000 UNITS Ergocalciferol 50,000 unit Q7D PO 09/16/24 09:00 Vancomycin HCl 0 ml @ 0 mls/hr UD IV 09/16/24 06:15 Meropenem 50 ml @ 17 mls/hr DAILY IV 09/16/24 10:00 09/16/24 10:41 17 MLS/HR Pantoprazole Sodium 40 mg DAILY IV 09/16/24 10:00 09/16/24 10:41 40 MG Nifedipine 60 mg DAILY PO 09/16/24 10:00 Laboratory Results Laboratory Tests 09/16/24 06:09 Chemistry Test 09/16/24 06:09 Albumin 3.3 g/dL (3.2-4.8) Calcium Level 8.9 mg/dL (8.7-10.4) Total Protein 7.3 g/dL (5.7-8.2) LFT Test 09/16/24 06:09 Alanine Aminotransferase (ALT) 22 U/L (7-40) Alkaline Phosphatase 92 U/L (46-116) Aspartate Amino Transferase (AST) 34 U/L (13-40) Total Bilirubin 0.4 mg/dL (0.2-1.0) Blood Gas Results Test 09/15/24 13:06 09/16/24 04:21 Arterial Blood pH 7.433 (7.350-7.450) 7.426 (7.350-7.450) FiO2 % 21.0 48.0 Microbiology Microbiology Date/Time Source Procedure Growth Status 09/15/24 06:32 Blood Blood Culture - Preliminary NO GROWTH AFTER 24 HOURS OF INCUBATION. Resulted Labs and/or images reviewed: Labs reviewed by me Assessment/Plan Assessment/Plan Metabolic encephalopathy from uremia- Improving ESRD (end stage renal failure)- Cont HD Hypertensive Emergency- Monitor and adjust meds Hypokalemia Continue current management. The patient is still very confused. Hemodialysis per schedule. Continuing hypertensive medication. Replace electrolytes as needed Hemodialysis today per schedule We will try to wean off nicardipine drip This medical document was created using an electronic medical record system with [employer] computerized dictation system. Although this document has been carefully reviewed, there may still be some phonetic and typographical errors. These areas are purely typographical due to imperfections of the software programs, and do not reflect any compromise in the patient's medical care. Plan discussed with: Patient My Orders Orders - TOSHIA OJEDA MD Procedure Category Date Status Time Chest Xray 1 View XY 09/15/24 Resulted 17:44 Date of Service: September 16, 2024 Billing Provider: TOSHIA OJEDA MD Common Visit Codes: [id number] INP/OBS CARE(HIGH) TOSHIA OJEDA MD September 16, 2024 11:06
[2024-09-16] MEDS ORDERED: ACYCLOVIR 5MG/KG Q8HR PER RX 0 ML IV SCH (12:00)
--- NOTE | 2024-09-16 13:07 | DVHPN2 ---
Consult Progress Note Date Seen: September 16, 2024 Subjective Other Systems: No overnight cardiac events reported. HD at bedside Objective vital signs Vital Sign Date Time Temp Pulse Resp B/P (MAP) Pulse Ox O2 Delivery O2 Flow Rate FiO2 09/16/24 11:00 97.2 76 22 153/69 (97) 97 97.2 09/16/24 07:40 Simple Mask* 8 60 Total Intake and Output 09/15/24 09/15/24 09/16/24 15:00 23:00 07:00 Intake Total 300 ml 800 ml 1250 ml Output Total 0 ml Balance 300 ml 800 ml 1250 ml medications Current Medications Medications Dose Ordered Sig/Maru Route Start Time Stop Time Status Last Admin Dose Admin Acetaminophen/ Hydrocodone Bitart 1 tab Q4HP PRN PO 09/11/24 19:45 Docusate Sodium 100 mg BIDPRN PRN PO 09/11/24 19:45 Acetaminophen 650 mg Q6HP PRN PO 09/11/24 19:45 Morphine Sulfate 2 mg Q30M PRN IV 09/11/24 21:15 Lorazepam 1 mg Q2HPRN PRN PO 09/11/24 22:00 Cancel Lorazepam 1 mg Q2HPRN PRN IV 09/11/24 22:00 09/15/24 00:03 Labetalol HCl 20 mg Q2HPRN PRN IV 09/13/24 19:45 09/15/24 10:38 Levetiracetam 100 ml @ 400 mls/hr BID IV 09/14/24 10:00 09/16/24 10:41 Hydralazine HCl 15 mg Q6HP PRN IV 09/15/24 01:00 09/15/24 13:52 Diagnostic Test (Pha) 1 strip ACHS 09/15/24 17:00 09/16/24 06:29 Dextrose 50 ml UD PRN IV 09/15/24 13:30 Heparin Sodium (Porcine) 5,000 units Q12HR SC 09/15/24 22:00 09/16/24 10:44 Ergocalciferol 50,000 unit Q7D PO 09/16/24 09:00 Vancomycin HCl 0 ml @ 0 mls/hr UD IV 09/16/24 06:15 Meropenem 50 ml @ 17 mls/hr DAILY IV 09/16/24 10:00 09/16/24 10:41 Pantoprazole Sodium 40 mg DAILY IV 09/16/24 10:00 09/16/24 10:41 Acyclovir Sodium 0 ml @ 0 mls/hr PER PHARMACY IV 09/16/24 12:00 Acyclovir Sodium 250 mg/Dextrose 55 ml @ 55 mls/hr DAILY IV 09/17/24 10:00 Examination: GENERAL:Abnormal, LUNGS:Abnormal (Diminished, O2 via simple mask), CVS:Normal (SBP 170s mmHg, NSR), NEURO:Abnormal (Restless, more lucid today) laboratory and microbiology Laboratory Tests 09/16/24 06:09 Test 09/16/24 06:09 Range/Units Serum Glucose 67 L 74-106 mg/dL Problem List/Assessment/Plan Problem List/Assessment/Plan Critical pulmonary hypertension Hypertensive emergency Metabolic encephalopathy Possible sepsis Hx of seizure activity Anemia and chronic disease ESRD on HD Obesity Plan/Recommendation (Dr. Arauz) Transthoracic echocardiogram revealed LVEF 55-60% with abnormal septal motion due to RV pressure overload, grade II diastolic dysfunction, severe tricuspid regurgitation, and RVSP at 130 mmHg. PE ruled out. Pulmonology team consulted with recommendations to initiate Sildenafil therapy. Pending brain MRI given ALOC. Tentatively scheduled for right heart catheterization with Dr. Arauz on 09/17/2024 pending neurological status and hemodynamic improvement. Continue blood pressure control IV given high risk for aspiration. DVT/VTE prophylaxis, monitor H&H and platelet count closely. Rest of recommendations per clinical course. Thank you for allowing us to participate in this patient's care. Please call if you have any questions or concerns. Critical care time: 55 min. This medical document was created using an electronic medical record system with voice recognition software and computerized dictation system. Although this document has been carefully reviewed, there might still be some phonetic and typographical errors. Occasional wrong-word or ``sound-alike�� substitutions may have occurred due to the inherent limitations of voice recognition software. These areas are purely typographical due to imperfections of the software programs and do not reflect any compromise in the patient's medical care. Please read the chart carefully and recognize, using context, where these substitutions have occurred. Plan discussed with: Other Dietary Evaluation Review Comments: 1) Continue to provide assistance at mealtime 2) If feeding tube is in place, TF Nepro carb Steady @ 60ml/hr x 20hr. Water flush 50ml Q6H if allowed. TF @ goal volume provides 2160 kcal (100% energy), 98gm protein (100% protein), 872ml free water. 3) TPN if NPO x 7 days 4) Nephro-Amy 1 tab daily, Ergocalciferol 50,000IU 1 cap weekly 5) Continue current plan of care Expected Outcomes/Goals: To meet at least 75% estimated needs FU 2-3 days Date of Service: September 16, 2024 Billing Provider: LUZ ELENA FARLEY Cardiology Common Codes: [id number] CARE 30-74 MIN LUZ ELENA FARLEY September 16, 2024 13:06
[2024-09-16] MEDS: cloNIDine 0.2 mg/24hr 7DAY PATCH TD ONE (13:47)
[2024-09-16] MEDS: ACYCLOVIR SOD IV ONE (14:25)
[2024-09-16] MEDS: D5W 5% IV ONE (14:25)
[2024-09-16] MEDS: SODIUM CHL 0.9% 1000 ML BAG XX ONE ×2 (14:39→14:47)
--- NOTE | 2024-09-16 17:41 | DVHPN2 ---
Progress Note - Dictate Date Seen: September 16, 2024 Has the PT tested + for MRSA If YES, has PT been informed?: Yes Medical Necessity Reason Pt with a Central, PICC or Fol: No Subjective Remains confused vital signs Vital Sign Date Time Temp Pulse Resp B/P (MAP) Pulse Ox O2 Delivery O2 Flow Rate FiO2 09/16/24 17:00 98.2 84 27 141/67 (91) 100 98.2 09/16/24 07:40 Simple Mask* 8 60 Total Intake and Output 09/15/24 09/15/24 09/16/24 15:00 23:00 07:00 Intake Total 300 ml 800 ml 1250 ml Output Total 0 ml Balance 300 ml 800 ml 1250 ml medications Current Medications Medications Dose Ordered Sig/Maru Route Start Time Stop Time Status Last Admin Dose Admin Acetaminophen/ Hydrocodone Bitart 1 tab Q4HP PRN PO 09/11/24 19:45 Docusate Sodium 100 mg BIDPRN PRN PO 09/11/24 19:45 Acetaminophen 650 mg Q6HP PRN PO 09/11/24 19:45 Morphine Sulfate 2 mg Q30M PRN IV 09/11/24 21:15 Lorazepam 1 mg Q2HPRN PRN PO 09/11/24 22:00 Cancel Lorazepam 1 mg Q2HPRN PRN IV 09/11/24 22:00 09/16/24 14:33 1 MG Labetalol HCl 20 mg Q2HPRN PRN IV 09/13/24 19:45 09/15/24 10:38 20 MG Levetiracetam 100 ml @ 400 mls/hr BID IV 09/14/24 10:00 09/16/24 10:41 400 MLS/HR Hydralazine HCl 15 mg Q6HP PRN IV 09/15/24 01:00 09/16/24 15:37 15 MG Diagnostic Test (Pha) 1 strip ACHS 09/15/24 17:00 09/16/24 06:29 1 STRIP Dextrose 50 ml UD PRN IV 09/15/24 13:30 Heparin Sodium (Porcine) 5,000 units Q12HR SC 09/15/24 22:00 09/16/24 10:44 5,000 UNITS Ergocalciferol 50,000 unit Q7D PO 09/16/24 09:00 Vancomycin HCl 0 ml @ 0 mls/hr UD IV 09/16/24 06:15 Meropenem 50 ml @ 17 mls/hr DAILY IV 09/16/24 10:00 09/16/24 10:41 17 MLS/HR Pantoprazole Sodium 40 mg DAILY IV 09/16/24 10:00 09/16/24 10:41 40 MG Acyclovir Sodium 0 ml @ 0 mls/hr PER PHARMACY IV 09/16/24 12:00 Acyclovir Sodium 250 mg/Dextrose 55 ml @ 55 mls/hr DAILY IV 09/17/24 10:00 objective HEENT: No evidence of JVD, no oral ulcers. Pulmonary: Lungs are clear on auscultation bilaterally Cardiovascular S1-S2, no S3 or S4 Abdomen: Bowel sounds positive, soft no rebound tenderness Skin: No rash Neurological: Confused Access: Right upper arm AV graft laboratory and microbiology Laboratory Tests 09/16/24 06:09 Test 09/16/24 06:09 Range/Units Serum Glucose 67 L 74-106 mg/dL Assessment/Plan Assessment: ESRD on HD via Rt arm AVG Metabolic encephalopathy Severe pulmonary hypertension Severe tricuspid regurgitation HTN, Seizure h/o shingles Anemia of CKD secondary hyperparathyroidism Metabolic acidosis Azotemia Hypothermia Plan: Patient underwent dialysis today with 2.5 UF, HD tomorrow for additional UF Plan for cardiac catheterization, cardiology following Monitor H&H, Rule out PE with CTA Neurology consult On antiseizure meds MRI pending JOSE M post HD as needed. Hb goal 10-11 g/dl Sahil Butcher Thank you very much for allowing us to participate in the care of this patient Dietary Evaluation Review Comments: 1) Continue to provide assistance at mealtime 2) If feeding tube is in place, TF Nepro carb Steady @ 60ml/hr x 20hr. Water flush 50ml Q6H if allowed. TF @ goal volume provides 2160 kcal (100% energy), 98gm protein (100% protein), 872ml free water. 3) TPN if NPO x 7 days 4) Nephro-Amy 1 tab daily, Ergocalciferol 50,000IU 1 cap weekly 5) Continue current plan of care Expected Outcomes/Goals: To meet at least 75% estimated needs FU 2-3 days Plan discussed with: Patient SHAMAR ORELLANA MD September 16, 2024 17:40
[2024-09-16] MEDS: EPOETIN ALFA-EPBX 4,000 UNIT/ML VIAL SC ONE (18:03)
--- NOTE | 2024-09-16 18:03 | DVHPNRES ---
Progress Note Date Seen: September 16, 2024 Resident Creating Document: CAROLEE WOODRUFF RESIDENT Has the PT tested + for MRSA If YES, has PT been informed?: Yes Medical Necessity Reason Pt with a Central, PICC or Fol: No Subjective Review of Systems Ms. Wright is a 68 years old female with a history of hypertension, end-stage renal failure on hemodialysis, seizure disorder, she was brought to the [facility] on 09/11/2024 with a chief complaint of altered mental status. According to her sister, the patient developed visual hallucination where he saw nonexisting objects/creatures on 09/11/2024 and she was take to the [facility]; when she came to see the patient, the patient was mentally fine, she recognized her and was able to maintain a good conversation. According to her sister, the patient's baseline was mentally normal. On 09/09/24, she was seen in the [facility] ER for skin rashes in the left upper extremity, and the patient was said to have shingles, she was prescribed valacyclovir. She has a very long history of seizure disorder, she was spells of event with shaking all over body, her sister does not remember much about her seizure, but she claimed the patient was respond to her during the seizure activity, there was no associated oral trauma. Her sister does not remember how often she has seizures, but last seizure was before 06/2024 when she relocated from the [place] to the [facility]. Her sister looked at the patient's bottle and confirmed the patient was on Keppra 500 mg b.i.d., the only seizure medication the patient was on. Patient is seen and examined on the bedside. She is alert oriented x1. Glascow coma scale is 12 and able to maintain the airway. Review of system could not be done as patient is not fully oriented Objective vital signs Vital Sign Date Time Temp Pulse Resp B/P (MAP) Pulse Ox O2 Delivery O2 Flow Rate FiO2 09/16/24 17:00 98.2 84 27 141/67 (91) 100 98.2 09/16/24 07:40 Simple Mask* 8 60 Total Intake and Output 09/15/24 09/15/24 09/16/24 15:00 23:00 07:00 Intake Total 300 ml 800 ml 1250 ml Output Total 0 ml Balance 300 ml 800 ml 1250 ml medications Current Medications Medications Dose Ordered Sig/Maru Route Start Time Stop Time Status Last Admin Dose Admin Acetaminophen/ Hydrocodone Bitart 1 tab Q4HP PRN PO 09/11/24 19:45 Docusate Sodium 100 mg BIDPRN PRN PO 09/11/24 19:45 Acetaminophen 650 mg Q6HP PRN PO 09/11/24 19:45 Morphine Sulfate 2 mg Q30M PRN IV 09/11/24 21:15 Lorazepam 1 mg Q2HPRN PRN PO 09/11/24 22:00 Cancel Lorazepam 1 mg Q2HPRN PRN IV 09/11/24 22:00 09/16/24 14:33 1 MG Labetalol HCl 20 mg Q2HPRN PRN IV 09/13/24 19:45 09/15/24 10:38 20 MG Levetiracetam 100 ml @ 400 mls/hr BID IV 09/14/24 10:00 09/16/24 10:41 400 MLS/HR Hydralazine HCl 15 mg Q6HP PRN IV 09/15/24 01:00 09/16/24 15:37 15 MG Diagnostic Test (Pha) 1 strip ACHS 09/15/24 17:00 09/16/24 17:57 1 STRIP Dextrose 50 ml UD PRN IV 09/15/24 13:30 Heparin Sodium (Porcine) 5,000 units Q12HR SC 09/15/24 22:00 09/16/24 10:44 5,000 UNITS Ergocalciferol 50,000 unit Q7D PO 09/16/24 09:00 Vancomycin HCl 0 ml @ 0 mls/hr UD IV 09/16/24 06:15 Meropenem 50 ml @ 17 mls/hr DAILY IV 09/16/24 10:00 09/16/24 10:41 17 MLS/HR Pantoprazole Sodium 40 mg DAILY IV 09/16/24 10:00 09/16/24 10:41 40 MG Acyclovir Sodium 0 ml @ 0 mls/hr PER PHARMACY IV 09/16/24 12:00 Acyclovir Sodium 250 mg/Dextrose 55 ml @ 55 mls/hr DAILY IV 09/17/24 10:00 Examination Physical examination: General Appearance: Alert, Oriented X1, arousable and tries to open eyes. HEENT: Atraumatic, PERRLA, EOMI, Mucous membrane moist/pink Respiratory: bilateral decreased breath sounds and coarse crackles. Cardiovascular: Regular rate, Normal S1, Normal S2, Tricuspid regurgitation murmur present, no chest wall tenderness Abdominal: Distended and flanks are full, Normal bowel sounds, Soft, No tenderness, No hepatospenomegaly, No masses Extremities: No clubbing, No cyanosis, No edema, Normal pulses, No tenderness/swelling Skin: Healed rashes with black eschar on the chest that does not cross the midline, No breakdown, No significant lesion. Neuro: Strength at 5/5 X4 ext, Normal tone, Sensation intact, Cranial nerves 3- 12 NL, Reflexes 2+ Psych/Mental Status: Could not be assessed. laboratory and microbiology Laboratory Tests 09/16/24 06:09 Test 09/16/24 06:09 Range/Units Serum Glucose 67 L 74-106 mg/dL Microbiology Date/Time Source Procedure Growth Status 09/15/24 06:32 Blood Blood Culture - Preliminary NO GROWTH AFTER 24 HOURS OF INCUBATION. Resulted Labs and/or images reviewed: Labs reviewed by me, Image(s) reviewed by me Problem List/Assessment/Plan Problem List/Assessment/Plan Assessment and plan: NEURO: Acute Metabolic encephalopathy likely due to possible meningitis Recent history of shingles Rule out stroke History of seizure disorder - CT head demonstrated moderate cerebellar atrophy without acute ischemia or hemorrhage - EEG showed moderately abnormal EEG, this EEG seen in moderate cerebral dysfunction due to metabolic/hypoxic encephalopathy or medication effects. - Preliminary blood culture is negative for any growth after 24 hours of incubation - IV Acyclovir 250 mg daily - IV vancomycin as per pharmacy and IV meropenem 1 g daily - Pending MRI - IV Keppra 500 mg b.i.d. - IV Ativan 1 mg q.2h p.r.n. for seizure - Neurology on board CARDIOVASCULAR: Hypertensive emergency Severe pulmonary hypertension Severe tricuspid regurgitation RV overload likely due to severe volume overload and increased left ventricular end-diastolic pressure - CT angio demonstrated cardiomegaly, reflux of contrast the hepatic vein and IVC consistent with right heart dysfunction - Echocardiogram revealed LVEF 55-60% with abnormal septal motion due to RV pressure overload, grade II diastolic dysfunction, severe tricuspid regurgitation, and RVSP at 130 mmHg - Cardiology on board and possible right heart catheterization tomorrow on 09/17/2024 - IV hydralazine 15 mg q.6 PRN, IV labetalol 20 mg q.2h p.r.n. - clonidine 0.2 mg patch once PULMONARY: Severe pulmonary hypertension Ruled out pulmonary embolism Bilateral pleural effusion possible Gram-positive/Gram-negative pneumonia - CT angio showed Bilateral pulmonary airspace consolidation and ground-glass disease most pronounced in the lower lobes, likely secondary to combination of infection/ pneumonia or edema GASTROINTESTINAL: Ascites likely due to volume overload rule out chronic liver disease - Ordered ultrasound of the abdomen GENITOURINARY: ESRD on hemodialysis 3 times a week Vitamin D defieciency likely due to chronic renal disease - Patient underwent dialysis today with 2.5 UF, HD tomorrow for additional UF - Nephrology on board - Strict I&O - Avoid nephrotoxic medication HEME: Chronic microcytic hypochromic anemia likely due to CKD Thrombocytopenia INFECTIOUS DISEASE: Sepsis likely due to pneumonia Possible Gram-positive/ Gram-negative pneumonia Hepatitis C antibody positive Recent history of shingles -CT angio showed Bilateral pulmonary airspace consolidation and ground-glass disease most pronounced in the lower lobes, likely secondary to combination of infection/ pneumonia or edema - IV meropenem 1 g daily and IV vancomycin as per pharmacy - COVID ,flu negative and MRSA pending - Preliminary Blood culture is negative for any growth in 24 hours of incubation. 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 GI prophylaxis: IV Protonix 40 mg daily Bowel regimen: Code status: full code LINES/DRAINS/ACCESS: IV access: Peripheral line Perdue catheter: DISPOSITION: ICU Patient's status discussed with skin care specialist time spent more than 64 minutes, including patient care, chart review, and updating the family. Excluding any procedures. Case discussed with Dr. Spence Plan discussed with: Other (RN) My Orders My Orders Orders - CAROLEE WOODRUFF RESIDENT Procedure Category Date Status Time Communication Order ORDERS 09/16/24 Transmitted 07:52 Mrsa Screen BHARATH 09/16/24 In Process 08:10 Dietary Evaluation Review Comments: 1) Continue to provide assistance at mealtime 2) If feeding tube is in place, TF Nepro carb Steady @ 60ml/hr x 20hr. Water flush 50ml Q6H if allowed. TF @ goal volume provides 2160 kcal (100% energy), 98gm protein (100% protein), 872ml free water. 3) TPN if NPO x 7 days 4) Nephro-Amy 1 tab daily, Ergocalciferol 50,000IU 1 cap weekly 5) Continue current plan of care Expected Outcomes/Goals: To meet at least 75% estimated needs FU 2-3 days Date of Service: September 16, 2024 Billing Provider: BRANDIE SPENCE MD Common Visit Codes: [id number] CARE 30-74 MIN CAROLEE WOODRUFF RESIDENT September 16, 2024 18:03 BRANDIE SPENCE MD September 18, 2024 22:09
[2024-09-16] MEDS: D5W/SOD CHL 0.45% 1,000 ML IV SCH (18:21)
--- NOTE | 2024-09-16 19:37 | DVH ---
INDICATION: rule out liver pathology TECHNIQUE: Multiple real-time sonographic images of the abdomen were obtained. COMPARISON: None FINDINGS: Liver is heterogeneous in echogenicity. The liver measures 15.1 cm. No intrahepatic biliary ductal dilatation is noted. The gallbladder wall measures 0.2 cm and is unremarkable. Multiple gallstones are seen. No pericho lecystic fluid or edema. The common duct measures 0.3 cm and is unremarkable. The right kidney measures 5.6 cm. No hydronephrosis. The left kidney measures 7.2 cm. No hydronephros is. Right renal cyst measures up to 1.4 cm. Left pleural effusion is seen. Trace ascites seen in the left upper quadrant. The pancreas is not well visualized due to obscuration from bowel gas. The visualized portions of the IVC and aorta are grossly unremarkable. IMPRESSION: 1. Cholelithiasis without evidence of cholecystitis. 2. Left pleural effusion. 3. Trace ascites in the left upper quadrant 4. Hepatic steatosis.
[2024-09-16] MEDS: DEXTROSE (50%) 50ML SYRG IV ONE (20:46)
[2024-09-16] MEDS: EPOETIN ALFA-EPBX 10,000 UNIT/1ML VIAL SC ONE (21:46)
--- NOTE | 2024-09-16 23:46 | DVHPN2 ---
Progress Note - Dictate Date Seen: September 16, 2024 Has the PT tested + for MRSA If YES, has PT been informed?: Yes Medical Necessity Reason Pt with a Central, PICC or Fol: No Subjective Patient seen and examined at bedside. Remains on supplemental oxygen Overnight events reviewed. vital signs Vital Sign Date Time Temp Pulse Resp B/P (MAP) Pulse Ox O2 Delivery O2 Flow Rate FiO2 09/16/24 23:38 185/84 09/16/24 22:05 87 09/16/24 21:00 25 98 09/16/24 20:30 97.7 97.7 09/16/24 07:40 Simple Mask* 8 60 Total Intake and Output 09/15/24 09/15/24 09/16/24 15:00 23:00 07:00 Intake Total 300 ml 800 ml 1250 ml Output Total 0 ml Balance 300 ml 800 ml 1250 ml medications Current Medications Medications Dose Ordered Sig/Maru Route Start Time Stop Time Status Last Admin Dose Admin Acetaminophen/ Hydrocodone Bitart 1 tab Q4HP PRN PO 09/11/24 19:45 Docusate Sodium 100 mg BIDPRN PRN PO 09/11/24 19:45 Acetaminophen 650 mg Q6HP PRN PO 09/11/24 19:45 Morphine Sulfate 2 mg Q30M PRN IV 09/11/24 21:15 Lorazepam 1 mg Q2HPRN PRN PO 09/11/24 22:00 Cancel Lorazepam 1 mg Q2HPRN PRN IV 09/11/24 22:00 09/16/24 14:33 1 MG Labetalol HCl 20 mg Q2HPRN PRN IV 09/13/24 19:45 09/16/24 22:05 20 MG Levetiracetam 100 ml @ 400 mls/hr BID IV 09/14/24 10:00 09/16/24 22:19 400 MLS/HR Hydralazine HCl 15 mg Q6HP PRN IV 09/15/24 01:00 09/16/24 23:38 15 MG Diagnostic Test (Pha) 1 strip ACHS 09/15/24 17:00 09/16/24 22:14 1 STRIP Dextrose 50 ml UD PRN IV 09/15/24 13:30 Heparin Sodium (Porcine) 5,000 units Q12HR SC 09/15/24 22:00 09/16/24 22:46 5,000 UNITS Ergocalciferol 50,000 unit Q7D PO 09/16/24 09:00 Vancomycin HCl 0 ml @ 0 mls/hr UD IV 09/16/24 06:15 Meropenem 50 ml @ 17 mls/hr DAILY IV 09/16/24 10:00 09/16/24 10:41 17 MLS/HR Acyclovir Sodium 0 ml @ 0 mls/hr PER PHARMACY IV 09/16/24 12:00 Acyclovir Sodium 250 mg/Dextrose 55 ml @ 55 mls/hr DAILY IV 09/17/24 10:00 Dextrose/Sodium Chloride 1,000 ml @ 50 mls/hr Q20H IV 09/16/24 18:30 09/16/24 18:21 50 MLS/HR Pantoprazole Sodium 40 mg DAILY IV 09/17/24 10:00 objective Gen.: Patient lying in bed in no apparent distress. On supplemental oxygen. Head: Normocephalic, atraumatic. Eyes: EOMI/PERRLA. Ears: Normal hearing. Normal anatomy. Neck/trachea: Trachea midline, supple. Nose: Normal external anatomy. Mouth: Moist mucous membranes. Chest: Decreased air entry bilaterally. No wheezing or rhonchi. Cardiovascular: Positive S1, positive S2. Regular rate and rhythm. Abdomen: Positive bowel sounds in all 4 quadrants. Soft, non-tender, non- distended. : Deferred. Rectal: Deferred. Skin: Warm, dry. Intact. Extremities: 2+ radial pulses bilaterally. No lower extremity edema. Neuro: Awake, alert, confused. No gross motor or sensory deficits. Cranial nerves II through XII intact. Gait not assessed. laboratory and microbiology Laboratory Tests 09/16/24 06:09 Test 09/16/24 06:09 Range/Units Serum Glucose 67 L 74-106 mg/dL Assessment/Plan Impression: Acute hypoxic respiratory failure Dependence on supplemental oxygen Acute metabolic encephalopathy End-stage renal disease, on hemodialysis Generalized weakness Pulmonary hypertension, RVSP 120 mmHg Obesity GGO on imaging Pleural effusion, left greater than right Atelectasis Mediastinal lymphadenopathy Events: Remains on supplemental oxygen, 8 LPM simple mask Taper O2 as tolerated Monitor respiratory status closely Patient is confused. Transthoracic echocardiogram revealed LVEF 55-60% with abnormal septal motion due to RV pressure overload, grade II diastolic dysfunction, severe tricuspid regurgitation, and RVSP at 130 mmHg. PE ruled out. Brain MRI pending given ALOC. Tentatively scheduled for right heart catheterization with Dr. Arauz on 09/17/2024 pending neurological status and hemodynamic improvement Dialysis at bedside Nephrology recs appreciated Incentive spirometry Continue abx IV fluids with D5-NS Blood pressure control Antiepileptic medication HOB elevation Aspiration precautions Monitor H&H Monitor platelets Labs and imaging reviewed. Rest of plan as noted below. Plan: Supplemental oxygen Titrate to keep O2 sats above 92%. Head of bed elevation Aspiration precautions Echo report reviewed. Cardiology recommendations appreciated If blood pressure tolerates, will consider sildenafil. Continue antibiotics Incentive spirometry HD per Nephrology Follow up Nephrology recommendations Monitor renal function. Monitor electrolytes. Supplement as necessary. Monitor ins and outs. DVT prophylaxis - heparin SC. Prognosis: Poor given patient's multiple co-morbidities. Rest of plan per hospitalist and other consultants. Thank you, Dr. Tripp, for allowing me to participate in this patient's care. Further recommendations will depend on the patient's clinical course. Please do not hesitate to contact me if you have any questions or concerns. This medical document was created using an electronic medical record system with [employer] dictation system. Although these documentations are being carefully reviewed, there may still be some phonetic and typographical changes. The errors are purely typographical, due to imperfection on the software program, and do not reflect any compromise in the patient's medical care. Dietary Evaluation Review Comments: 1) Continue to provide assistance at mealtime 2) If feeding tube is in place, TF Nepro carb Steady @ 60ml/hr x 20hr. Water flush 50ml Q6H if allowed. TF @ goal volume provides 2160 kcal (100% energy), 98gm protein (100% protein), 872ml free water. 3) TPN if NPO x 7 days 4) Nephro-Amy 1 tab daily, Ergocalciferol 50,000IU 1 cap weekly 5) Continue current plan of care Expected Outcomes/Goals: To meet at least 75% estimated needs FU 2-3 days Plan discussed with: Other (RN) BIANCA TAM MD September 16, 2024 23:46
[2024-09-17] VITALS (7 sets, daily range): BP systolic 155–186; BP diastolic 71–94; PULSE 68–76; RESP 16–18; TEMP 97.1–97.9; O2SAT 98–99
[2024-09-17] MEDS: hydrALAZINE HCL 20 MG/ML VL IV ONE (02:50)
--- NOTE | 2024-09-17 09:30 | DVHPN2 ---
Consult Progress Note Date Seen: September 17, 2024 Subjective Other Systems: ALOC, sitter at bedside Objective vital signs Vital Sign Date Time Temp Pulse Resp B/P (MAP) Pulse Ox O2 Delivery O2 Flow Rate FiO2 09/17/24 08:27 69 17 174/71 (105) 98 09/17/24 05:05 97.1 97.1 09/16/24 19:30 Nasal Cannula* 2 28 Total Intake and Output 09/16/24 09/16/24 09/17/24 15:00 23:00 07:00 Intake Total 800 ml 332.5 ml 200 ml Balance 800 ml 332.5 ml 200 ml medications Current Medications Medications Dose Ordered Sig/Maru Route Start Time Stop Time Status Last Admin Dose Admin Acetaminophen/ Hydrocodone Bitart 1 tab Q4HP PRN PO 09/11/24 19:45 Docusate Sodium 100 mg BIDPRN PRN PO 09/11/24 19:45 Acetaminophen 650 mg Q6HP PRN PO 09/11/24 19:45 Morphine Sulfate 2 mg Q30M PRN IV 09/11/24 21:15 Lorazepam 1 mg Q2HPRN PRN PO 09/11/24 22:00 Cancel Lorazepam 1 mg Q2HPRN PRN IV 09/11/24 22:00 09/16/24 14:33 1 MG Labetalol HCl 20 mg Q2HPRN PRN IV 09/13/24 19:45 09/17/24 05:40 20 MG Levetiracetam 100 ml @ 400 mls/hr BID IV 09/14/24 10:00 09/16/24 22:19 400 MLS/HR Hydralazine HCl 15 mg Q6HP PRN IV 09/15/24 01:00 09/16/24 23:38 15 MG Diagnostic Test (Pha) 1 strip ACHS 09/15/24 17:00 09/17/24 05:47 1 STRIP Dextrose 50 ml UD PRN IV 09/15/24 13:30 Heparin Sodium (Porcine) 5,000 units Q12HR SC 09/15/24 22:00 09/16/24 22:46 5,000 UNITS Ergocalciferol 50,000 unit Q7D PO 09/16/24 09:00 Vancomycin HCl 0 ml @ 0 mls/hr UD IV 09/16/24 06:15 Meropenem 50 ml @ 17 mls/hr DAILY IV 09/16/24 10:00 09/16/24 10:41 17 MLS/HR Acyclovir Sodium 0 ml @ 0 mls/hr PER PHARMACY IV 09/16/24 12:00 Acyclovir Sodium 250 mg/Dextrose 55 ml @ 55 mls/hr DAILY IV 09/17/24 10:00 Dextrose/Sodium Chloride 1,000 ml @ 50 mls/hr Q20H IV 09/16/24 18:30 09/16/24 18:21 50 MLS/HR Pantoprazole Sodium 40 mg DAILY IV 09/17/24 10:00 Examination: GENERAL:Abnormal, CVS:Normal (NSR), NEURO:Abnormal (ALOC) laboratory and microbiology Laboratory Tests 09/16/24 06:09 Test 09/16/24 06:09 Range/Units Serum Glucose 67 L 74-106 mg/dL Problem List/Assessment/Plan Problem List/Assessment/Plan Critical pulmonary hypertension, PE ruled out Hypertensive emergency Acute metabolic encephalopathy Possible sepsis with PNA Hx of seizure activity Anemia in chronic disease ESRD on HD Obesity Plan/Recommendation (Dr. Arauz) Transthoracic echocardiogram revealed LVEF 55-60% with abnormal septal motion due to RV pressure overload, grade II diastolic dysfunction, severe tricuspid regurgitation, and RVSP at 130 mmHg. Pulmonology team consulted with recommendations for initiation of Sildenafil therapy. Recommendations are for an eventual right heart catheterization pending neurological status improvement. Continue blood pressure control IV/TD given high risk for aspiration. Pending brain MRI. DVT/VTE prophylaxis, monitor H&H and platelet count closely. Morning labs pending. Rest of recommendations per clinical course. Thank you for allowing us to participate in this patient's care. Please call if you have any questions or concerns. This medical document was created using an electronic medical record system with voice recognition software and computerized dictation system. Although this document has been carefully reviewed, there might still be some phonetic and typographical errors. Occasional wrong-word or ``sound-alike�� substitutions may have occurred due to the inherent limitations of voice recognition software. These areas are purely typographical due to imperfections of the software programs and do not reflect any compromise in the patient's medical care. Please read the chart carefully and recognize, using context, where these substitutions have occurred. Plan discussed with: Other Dietary Evaluation Review Comments: 1) Continue to provide assistance at mealtime 2) If feeding tube is in place, TF Nepro carb Steady @ 60ml/hr x 20hr. Water flush 50ml Q6H if allowed. TF @ goal volume provides 2160 kcal (100% energy), 98gm protein (100% protein), 872ml free water. 3) TPN if NPO x 7 days 4) Nephro-Amy 1 tab daily, Ergocalciferol 50,000IU 1 cap weekly 5) Continue current plan of care Expected Outcomes/Goals: To meet at least 75% estimated needs FU 2-3 days Date of Service: September 17, 2024 Billing Provider: LUZ ELENA FARLEY Cardiology Common Codes: [id number] HOSP CARE(High LUZ ELENA FARLEY September 17, 2024 09:29
[2024-09-17 10:17] LABS: Hematocrit 26.7 % (36.0-46.0); Hemoglobin 8.9 g/dL (12.2-16.2); Mean Corpuscular Hemoglobin 30.2 pg (28.0-32.0); Mean Corpuscular Hgb Conc. 33.4 g/dL (32.0-36.0); Mean Corpuscular Volume 90.5 fL (80.0-100.0); Platelet Count (auto) 127 10^3/uL (140-450); Red Blood Cells 2.95 10^6/uL (4.0-5.20); Red Cell Distribution Width 17.4 % (11.8-14.3); White Blood Cell 4.9 10^3/uL (4.4-10.8)
[2024-09-17] MEDS: PANTOPRAZOLE 40 MG/10 ML VIAL INJ IV SCH (10:22)
[2024-09-17 10:33] LABS: Basophils % (manual) 0 (0.0-2.0); Blast Cells 0; Metamyelocytes % 0; Myelocytes % 0; Promyelocytes % 0; Reactive Lymphocytes 0
[2024-09-17 10:38] LABS: % Iron Saturation 53.7 % (15-50); Alanine Aminotransferase 20 U/L (7-40); Albumin 3.3 g/dL (3.2-4.8); Alkaline Phosphatase 99 U/L (46-116); Anion Gap 9 (5-15); Aspartate Aminotransferase 34 U/L (13-40); BUN/Creatinine Ratio 3.2 (10.0-20.0); Blood Urea Nitrogen 13 mg/dL (9-23); Calcium 9.8 mg/dL (8.7-10.4); Carbon Dioxide 28 mmol/L (20-31); Chloride 104 mmol/L (98-107); Glucose 76 mg/dL (74-106); Potassium 3.7 mmol/L (3.5-5.1); Sodium 141 mmol/L (136-145); Total Protein 7.5 g/dL (5.7-8.2)
[2024-09-17 10:39] LABS: Bilirubin, Total 0.5 mg/dL (0.2-1.0)
[2024-09-17] MEDS: ACYCLOVIR SOD IV SCH (11:17)
[2024-09-17] MEDS: D5W 5% IV SCH (11:17)
[2024-09-17 11:46] LABS: Anisocytosis Slight; Band Neutrophils % (manual) 1; Eosinophils % (manual) 6 (0-7); Lymphocytes % (manual) 22 (10.0-50.0); Monocytes % (manual) 17 (0-12); Platelet Estimate Decreased
--- NOTE | 2024-09-17 12:26 | DVH ---
EXAM: XY CHEST PORTABLE REASON FOR EXAM: Pulmonary edema TECHNIQUE: 1 view of the chest COMPARISON: XY CHEST XRAY 1 VIEW on DOS: 09/15/24 FINDINGS/IMPRESSION: LUNGS: Similar imaging appearance interstitial markings with small bilateral pleural effusions centra l pulmonary vascular congestion. Volume overload. MEDIASTINUM: [id number] cardiomegaly appearing BONES: No acute osseous abnormality OTHER: Status post removal of the enteric tube. Right axillary endovascular stent placement.
--- NOTE | 2024-09-17 14:58 | DVHPN2 ---
Progress Note - Dictate Date Seen: September 17, 2024 Has the PT tested + for MRSA If YES, has PT been informed?: Yes Medical Necessity Reason Pt with a Central, PICC or Fol: No Subjective Patient is much more alert today for stays she wants to go home vital signs Vital Sign Date Time Temp Pulse Resp B/P (MAP) Pulse Ox O2 Delivery O2 Flow Rate FiO2 09/17/24 13:21 97.8 72 16 186/90 (122) 98 97.8 09/16/24 19:30 Nasal Cannula* 2 28 Total Intake and Output 09/16/24 09/16/24 09/17/24 15:00 23:00 07:00 Intake Total 800 ml 332.5 ml 200 ml Balance 800 ml 332.5 ml 200 ml medications Current Medications Medications Dose Ordered Sig/Maru Route Start Time Stop Time Status Last Admin Dose Admin Acetaminophen/ Hydrocodone Bitart 1 tab Q4HP PRN PO 09/11/24 19:45 Docusate Sodium 100 mg BIDPRN PRN PO 09/11/24 19:45 Acetaminophen 650 mg Q6HP PRN PO 09/11/24 19:45 Morphine Sulfate 2 mg Q30M PRN IV 09/11/24 21:15 Lorazepam 1 mg Q2HPRN PRN PO 09/11/24 22:00 Cancel Lorazepam 1 mg Q2HPRN PRN IV 09/11/24 22:00 09/16/24 14:33 1 MG Labetalol HCl 20 mg Q2HPRN PRN IV 09/13/24 19:45 09/17/24 05:40 20 MG Levetiracetam 100 ml @ 400 mls/hr BID IV 09/14/24 10:00 09/17/24 11:17 400 MLS/HR Hydralazine HCl 15 mg Q6HP PRN IV 09/15/24 01:00 09/17/24 10:29 15 MG Diagnostic Test (Pha) 1 strip ACHS 09/15/24 17:00 09/17/24 11:30 1 STRIP Dextrose 50 ml UD PRN IV 09/15/24 13:30 Heparin Sodium (Porcine) 5,000 units Q12HR SC 09/15/24 22:00 09/17/24 10:22 5,000 UNITS Ergocalciferol 50,000 unit Q7D PO 09/16/24 09:00 Vancomycin HCl 0 ml @ 0 mls/hr UD IV 09/16/24 06:15 Meropenem 50 ml @ 17 mls/hr DAILY IV 09/16/24 10:00 09/17/24 10:19 17 MLS/HR Acyclovir Sodium 0 ml @ 0 mls/hr PER PHARMACY IV 09/16/24 12:00 Acyclovir Sodium 250 mg/Dextrose 55 ml @ 55 mls/hr DAILY IV 09/17/24 10:00 09/17/24 11:17 55 MLS/HR Dextrose/Sodium Chloride 1,000 ml @ 50 mls/hr Q20H IV 09/16/24 18:30 09/16/24 18:21 50 MLS/HR Pantoprazole Sodium 40 mg DAILY IV 09/17/24 10:00 09/17/24 10:22 40 MG objective HEENT: No evidence of JVD, no oral ulcers. Pulmonary: Lungs are clear on auscultation bilaterally Cardiovascular S1-S2, no S3 or S4 Abdomen: Bowel sounds positive, soft no rebound tenderness Skin: No rash Neurological: Confused Access: Right upper arm AV graft laboratory and microbiology Laboratory Tests 09/17/24 09:57 Test 09/17/24 09:57 Range/Units Serum Glucose 76 74-106 mg/dL Assessment/Plan Assessment: ESRD on HD via Rt arm AVG Metabolic encephalopathy Severe pulmonary hypertension PA pressure of 130 mmHg Severe tricuspid regurgitation HTN, Seizure h/o shingles Anemia of CKD secondary hyperparathyroidism Metabolic acidosis Azotemia Hypothermia Plan: Continue dialysis Friday Plan for cardiac catheterization once mentation improved, cardiology following Monitor H&H, Rule out PE with CTA Neurology consult On antiseizure meds JOSE M post HD as needed. Hb goal 10-11 g/dl Thank you very much for allowing us to participate in the care of this patient Dietary Evaluation Review Comments: 1) Continue to provide assistance at mealtime 2) If feeding tube is in place, TF Nepro carb Steady @ 60ml/hr x 20hr. Water flush 50ml Q6H if allowed. TF @ goal volume provides 2160 kcal (100% energy), 98gm protein (100% protein), 872ml free water. 3) TPN if NPO x 7 days 4) Nephro-Amy 1 tab daily, Ergocalciferol 50,000IU 1 cap weekly 5) Continue current plan of care Expected Outcomes/Goals: To meet at least 75% estimated needs FU 2-3 days Plan discussed with: Patient SHAMAR ORELLANA MD September 17, 2024 14:58
--- NOTE | 2024-09-17 19:02 | DVHPNRES ---
Progress Note Date Seen: September 17, 2024 Resident Creating Document: CAROLEE WOODRUFF RESIDENT Has the PT tested + for MRSA If YES, has PT been informed?: Yes Medical Necessity Reason Pt with a Central, PICC or Fol: No Subjective Review of Systems Ms. Wright is a 68 years old female with a history of hypertension, end-stage renal failure on hemodialysis, seizure disorder, she was brought to the [facility] on 09/11/2024 with a chief complaint of altered mental status. According to her sister, the patient developed visual hallucination where he saw nonexisting objects/creatures on 09/11/2024 and she was take to the [facility]; when she came to see the patient, the patient was mentally fine, she recognized her and was able to maintain a good conversation. According to her sister, the patient's baseline was mentally normal. On 09/09/24, she was seen in the [facility] ER for skin rashes in the left upper extremity, and the patient was said to have shingles, she was prescribed valacyclovir. She has a very long history of seizure disorder, she was spells of event with shaking all over body, her sister does not remember much about her seizure, but she claimed the patient was respond to her during the seizure activity, there was no associated oral trauma. Her sister does not remember how often she has seizures, but last seizure was before 06/2024 when she relocated from the [place] to the [facility]. Her sister looked at the patient's bottle and confirmed the patient was on Keppra 500 mg b.i.d., the only seizure medication the patient was on. Patient is seen and examined on the bedside. She is alert oriented x 2 to 3. No active complaint this time. Objective vital signs Vital Sign Date Time Temp Pulse Resp B/P (MAP) Pulse Ox O2 Delivery O2 Flow Rate FiO2 09/17/24 17:30 76 177/94 09/17/24 16:31 97.9 16 98 97.9 09/17/24 08:00 Nasal Cannula* 2 28 Total Intake and Output 09/16/24 09/16/24 09/17/24 15:00 23:00 07:00 Intake Total 800 ml 332.5 ml 200 ml Balance 800 ml 332.5 ml 200 ml medications Current Medications Medications Dose Ordered Sig/Maru Route Start Time Stop Time Status Last Admin Dose Admin Acetaminophen/ Hydrocodone Bitart 1 tab Q4HP PRN PO 09/11/24 19:45 Docusate Sodium 100 mg BIDPRN PRN PO 09/11/24 19:45 Acetaminophen 650 mg Q6HP PRN PO 09/11/24 19:45 Morphine Sulfate 2 mg Q30M PRN IV 09/11/24 21:15 Lorazepam 1 mg Q2HPRN PRN PO 09/11/24 22:00 Cancel Lorazepam 1 mg Q2HPRN PRN IV 09/11/24 22:00 09/16/24 14:33 1 MG Labetalol HCl 20 mg Q2HPRN PRN IV 09/13/24 19:45 09/17/24 17:30 20 MG Levetiracetam 100 ml @ 400 mls/hr BID IV 09/14/24 10:00 09/17/24 11:17 400 MLS/HR Hydralazine HCl 15 mg Q6HP PRN IV 09/15/24 01:00 09/17/24 10:29 15 MG Diagnostic Test (Pha) 1 strip ACHS 09/15/24 17:00 09/17/24 17:31 1 STRIP Dextrose 50 ml UD PRN IV 09/15/24 13:30 Heparin Sodium (Porcine) 5,000 units Q12HR SC 09/15/24 22:00 09/17/24 10:22 5,000 UNITS Ergocalciferol 50,000 unit Q7D PO 09/16/24 09:00 Vancomycin HCl 0 ml @ 0 mls/hr UD IV 09/16/24 06:15 Meropenem 50 ml @ 17 mls/hr DAILY IV 09/16/24 10:00 09/17/24 10:19 17 MLS/HR Acyclovir Sodium 0 ml @ 0 mls/hr PER PHARMACY IV 09/16/24 12:00 Acyclovir Sodium 250 mg/Dextrose 55 ml @ 55 mls/hr DAILY IV 09/17/24 10:00 09/17/24 11:17 55 MLS/HR Dextrose/Sodium Chloride 1,000 ml @ 50 mls/hr Q20H IV 09/16/24 18:30 09/17/24 14:30 50 MLS/HR Pantoprazole Sodium 40 mg DAILY IV 09/17/24 10:00 09/17/24 10:22 40 MG Examination Physical examination: General Appearance: Alert, Oriented X1, arousable and tries to open eyes. HEENT: Atraumatic, PERRLA, EOMI, Mucous membrane moist/pink Respiratory: bilateral decreased breath sounds and coarse crackles. Cardiovascular: Regular rate, Normal S1, Normal S2, Tricuspid regurgitation murmur present, no chest wall tenderness Abdominal: Distended and flanks are full, Normal bowel sounds, Soft, No tenderness, No hepatospenomegaly, No masses Extremities: No clubbing, No cyanosis, No edema, Normal pulses, No tenderness/swelling Skin: Healed rashes with black eschar on the chest that does not cross the midline, No breakdown, No significant lesion. Neuro: Strength at 5/5 X4 ext, Normal tone, Sensation intact, Cranial nerves 3- 12 NL, Reflexes 2+ Psych/Mental Status: Could not be assessed. laboratory and microbiology Laboratory Tests 09/17/24 09:57 Test 09/17/24 09:57 Range/Units Serum Glucose 76 74-106 mg/dL Microbiology Date/Time Source Procedure Growth Status 09/16/24 08:52 Nose MRSA Screen - Final Complete 09/15/24 06:32 Blood Blood Culture - Preliminary NO GROWTH AFTER 48 HOURS OF INCUBATION. Resulted Labs and/or images reviewed: Labs reviewed by me, Image(s) reviewed by me Problem List/Assessment/Plan Problem List/Assessment/Plan Assessment and plan: NEURO: Acute Metabolic encephalopathy likely due to possible meningitis Recent history of shingles Rule out stroke History of seizure disorder - CT head demonstrated moderate cerebellar atrophy without acute ischemia or hemorrhage - EEG showed moderately abnormal EEG, this EEG seen in moderate cerebral dysfunction due to metabolic/hypoxic encephalopathy or medication effects. - Preliminary blood culture is negative for any growth after 24 hours of incubation - IV Acyclovir 250 mg daily - IV vancomycin as per pharmacy and IV meropenem 1 g daily - Pending MRI - IV Keppra 500 mg b.i.d. - IV Ativan 1 mg q.2h p.r.n. for seizure - Neurology on board CARDIOVASCULAR: Hypertensive emergency Severe pulmonary hypertension Severe tricuspid regurgitation RV overload likely due to severe volume overload and increased left ventricular end-diastolic pressure - CT angio demonstrated cardiomegaly, reflux of contrast the hepatic vein and IVC consistent with right heart dysfunction - Echocardiogram revealed LVEF 55-60% with abnormal septal motion due to RV pressure overload, grade II diastolic dysfunction, severe tricuspid regurgitation, and RVSP at 130 mmHg - Cardiology on board and possible right heart catheterization after patient becomes more alert and oriented. - IV hydralazine 15 mg q.6 PRN, IV labetalol 20 mg q.2h p.r.n. - clonidine 0.2 mg patch once PULMONARY: Severe pulmonary hypertension Ruled out pulmonary embolism Bilateral pleural effusion possible Gram-positive/Gram-negative pneumonia - CT angio showed Bilateral pulmonary airspace consolidation and ground-glass disease most pronounced in the lower lobes, likely secondary to combination of infection/ pneumonia or edema GASTROINTESTINAL: Ascites likely due to volume overload rule out chronic liver disease - Ultrasound of the abdomen showed Cholelithiasis without evidence of cholecystitis. Left pleural effusion. Trace ascites in the left upper quadrant and Hepatic steatosis. GENITOURINARY: ESRD on hemodialysis 3 times a week Vitamin D defieciency likely due to chronic renal disease - Yesterday 2.5L removed and Patient underwent dialysis today for additional UF - Nephrology on board - Strict I&O - Avoid nephrotoxic medication HEME: Chronic microcytic hypochromic anemia likely due to CKD Thrombocytopenia INFECTIOUS DISEASE: Sepsis likely due to pneumonia Possible Gram-positive/ Gram-negative pneumonia Hepatitis C antibody positive Recent history of shingles Possible viral meningitis -CT angio showed Bilateral pulmonary airspace consolidation and ground-glass disease most pronounced in the lower lobes, likely secondary to combination of infection/ pneumonia or edema - IV meropenem 1 g daily and IV vancomycin as per pharmacy and IV acyclovir 250 mg daily. - COVID ,flu negative and MRSA pending - Preliminary Blood culture is negative for any growth in 24 hours of incubation. 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 GI prophylaxis: IV Protonix 40 mg daily Bowel regimen: Code status: full code LINES/DRAINS/ACCESS: IV access: Peripheral line Perdue catheter: DISPOSITION: Telemetry Patient's status discussed with RN Case discussed with Dr. Bueno Plan discussed with: Other (Sister, RN) My Orders My Orders Orders - CAROLEE WOODRUFF Procedure Category Date Status Time Pantoprazole PHA 09/17/24 In Process (Protonix) 10:00 * Swallow Request ST 09/17/24 Transmitted 09:39 Notify Provider NOTICE 09/17/24 Transmitted Malnutrition 12:27 Nutritional NOURISH 09/17/24 Transmitted Supplements 12:27 Pureed DIET 09/17/24 Transmitted Dinner Dietary Evaluation Review Comments: 1) Continue to provide assistance at mealtime 2) If feeding tube is in place, TF Nepro carb Steady @ 60ml/hr x 20hr. Water flush 50ml Q6H if allowed. TF @ goal volume provides 2160 kcal (100% energy), 98gm protein (100% protein), 872ml free water. 3) TPN if NPO x 7 days 4) Nephro-Amy 1 tab daily, Ergocalciferol 50,000IU 1 cap weekly 5) Continue current plan of care Expected Outcomes/Goals: To meet at least 75% estimated needs FU 2-3 days CAROLEE WOODRUFF RESIDENT September 17, 2024 19:02
--- NOTE | 2024-09-17 21:38 | DVHPN2 ---
Progress Note - Dictate Date Seen: September 17, 2024 Has the PT tested + for MRSA If YES, has PT been informed?: Yes Medical Necessity Reason Pt with a Central, PICC or Fol: No Subjective Patient seen and examined at bedside. Remains on supplemental oxygen Overnight events reviewed. vital signs Vital Sign Date Time Temp Pulse Resp B/P (MAP) Pulse Ox O2 Delivery O2 Flow Rate FiO2 09/17/24 17:30 76 177/94 09/17/24 16:31 97.9 16 98 97.9 09/17/24 08:00 Nasal Cannula* 2 28 Total Intake and Output 09/16/24 09/16/24 09/17/24 15:00 23:00 07:00 Intake Total 800 ml 332.5 ml 200 ml Balance 800 ml 332.5 ml 200 ml medications Current Medications Medications Dose Ordered Sig/Maru Route Start Time Stop Time Status Last Admin Dose Admin Acetaminophen/ Hydrocodone Bitart 1 tab Q4HP PRN PO 09/11/24 19:45 Docusate Sodium 100 mg BIDPRN PRN PO 09/11/24 19:45 Acetaminophen 650 mg Q6HP PRN PO 09/11/24 19:45 Morphine Sulfate 2 mg Q30M PRN IV 09/11/24 21:15 Lorazepam 1 mg Q2HPRN PRN PO 09/11/24 22:00 Cancel Lorazepam 1 mg Q2HPRN PRN IV 09/11/24 22:00 09/16/24 14:33 1 MG Labetalol HCl 20 mg Q2HPRN PRN IV 09/13/24 19:45 09/17/24 17:30 20 MG Levetiracetam 100 ml @ 400 mls/hr BID IV 09/14/24 10:00 09/17/24 11:17 400 MLS/HR Hydralazine HCl 15 mg Q6HP PRN IV 09/15/24 01:00 09/17/24 10:29 15 MG Diagnostic Test (Pha) 1 strip ACHS 09/15/24 17:00 09/17/24 17:31 1 STRIP Dextrose 50 ml UD PRN IV 09/15/24 13:30 Heparin Sodium (Porcine) 5,000 units Q12HR SC 09/15/24 22:00 09/17/24 10:22 5,000 UNITS Ergocalciferol 50,000 unit Q7D PO 09/16/24 09:00 Vancomycin HCl 0 ml @ 0 mls/hr UD IV 09/16/24 06:15 Meropenem 50 ml @ 17 mls/hr DAILY IV 09/16/24 10:00 09/17/24 10:19 17 MLS/HR Acyclovir Sodium 0 ml @ 0 mls/hr PER PHARMACY IV 09/16/24 12:00 Acyclovir Sodium 250 mg/Dextrose 55 ml @ 55 mls/hr DAILY IV 09/17/24 10:00 09/17/24 11:17 55 MLS/HR Dextrose/Sodium Chloride 1,000 ml @ 50 mls/hr Q20H IV 09/16/24 18:30 09/17/24 14:30 50 MLS/HR Pantoprazole Sodium 40 mg DAILY IV 09/17/24 10:00 09/17/24 10:22 40 MG objective Gen.: Patient lying in bed in no apparent distress. On supplemental oxygen. Head: Normocephalic, atraumatic. Eyes: EOMI/PERRLA. Ears: Normal hearing. Normal anatomy. Neck/trachea: Trachea midline, supple. Nose: Normal external anatomy. Mouth: Moist mucous membranes. Chest: Decreased air entry bilaterally. No wheezing or rhonchi. Cardiovascular: Positive S1, positive S2. Regular rate and rhythm. Abdomen: Positive bowel sounds in all 4 quadrants. Soft, non-tender, non- distended. : Deferred. Rectal: Deferred. Skin: Warm, dry. Intact. Extremities: 2+ radial pulses bilaterally. No lower extremity edema. Neuro: Awake, alert, confused. No gross motor or sensory deficits. Cranial nerves II through XII intact. Gait not assessed. laboratory and microbiology Laboratory Tests 09/17/24 09:57 Test 09/17/24 09:57 Range/Units Serum Glucose 76 74-106 mg/dL Assessment/Plan Impression: Acute hypoxic respiratory failure Dependence on supplemental oxygen Acute metabolic encephalopathy End-stage renal disease, on hemodialysis Generalized weakness Pulmonary hypertension, RVSP 120 mmHg Obesity GGO on imaging Pleural effusion, left greater than right Atelectasis Mediastinal lymphadenopathy Events: Remains on supplemental oxygen, 2 LPM NC Taper O2 as tolerated Mentation slowly improving. CXR reveals interstitial markings with small bilateral pleural effusions and central pulmonary vascular congestion. Volume overload. [id number] cardiomegaly. Plan for right heart catheterization with Dr. Arauz pending neurological status and hemodynamic improvement Blood pressure control per Cardiology Hemodialysis per Nephrology Nephrology recs appreciated Patient will hold off on Revatio. Incentive spirometry Continue abx Acyclovir IV fluids with D5-NS Antiepileptic medication HOB elevation Aspiration precautions GI prophylaxis - Protonix Monitor H&H Monitor platelets Transthoracic echocardiogram revealed LVEF 55-60% with abnormal septal motion due to RV pressure overload, grade II diastolic dysfunction, severe tricuspid regurgitation, and RVSP at 130 mmHg. PE ruled out. Labs and imaging reviewed. Rest of plan as noted below. Plan: Supplemental oxygen Titrate to keep O2 sats above 92%. Head of bed elevation Aspiration precautions Echo report reviewed. Cardiology recommendations appreciated Continue antibiotics Incentive spirometry HD per Nephrology Follow up Nephrology recommendations Monitor renal function. Monitor electrolytes. Supplement as necessary. Monitor ins and outs. GI prophylaxis - Protonix DVT prophylaxis - heparin SC. Prognosis: Poor given patient's multiple co-morbidities. Rest of plan per hospitalist and other consultants. Thank you, Dr. Tripp, for allowing me to participate in this patient's care. Further recommendations will depend on the patient's clinical course. Please do not hesitate to contact me if you have any questions or concerns. This medical document was created using an electronic medical record system with [employer] dictation system. Although these documentations are being carefully reviewed, there may still be some phonetic and typographical changes. The errors are purely typographical, due to imperfection on the software program, and do not reflect any compromise in the patient's medical care. Dietary Evaluation Review Comments: 1) Continue to provide assistance at mealtime 2) If feeding tube is in place, TF Nepro carb Steady @ 60ml/hr x 20hr. Water flush 50ml Q6H if allowed. TF @ goal volume provides 2160 kcal (100% energy), 98gm protein (100% protein), 872ml free water. 3) TPN if NPO x 7 days 4) Nephro-Amy 1 tab daily, Ergocalciferol 50,000IU 1 cap weekly 5) Continue current plan of care Expected Outcomes/Goals: To meet at least 75% estimated needs FU 2-3 days Plan discussed with: Patient, Other (RN) BIANCA TAM MD September 17, 2024 21:38
[2024-09-17] MEDS: SODIUM CHL 0.9% 1000 ML BAG XX ONE (22:39)
[2024-09-18] VITALS (8 sets, daily range): BP systolic 165–194; BP diastolic 78–97; PULSE 63–84; RESP 17–20; TEMP 98.2–98.8; O2SAT 91–100
[2024-09-18] MEDS: EPOETIN ALFA-EPBX 10,000 UNIT/1ML VIAL SC ONE (01:02)
[2024-09-18] MEDS: levETIRAcetam 500 mg/100ml 100 ML IV ONE (01:06)
[2024-09-18 08:12] LABS: Hematocrit 24.8 % (36.0-46.0); Hemoglobin 8.4 g/dL (12.2-16.2); White Blood Cell 4.7 10^3/uL (4.4-10.8)
[2024-09-18 08:14] LABS: Mean Corpuscular Hemoglobin 30.6 pg (28.0-32.0); Mean Corpuscular Hgb Conc. 33.9 g/dL (32.0-36.0); Mean Corpuscular Volume 90.1 fL (80.0-100.0); Platelet Count (auto) 113 10^3/uL (140-450); Red Blood Cells 2.75 10^6/uL (4.0-5.20); Red Cell Distribution Width 17.2 % (11.8-14.3)
[2024-09-18 08:18] LABS: Band Neutrophils % (manual) 0; Basophils % (manual) 0 (0.0-2.0); Blast Cells 0; Metamyelocytes % 0; Myelocytes % 0; Promyelocytes % 0; Reactive Lymphocytes 0
[2024-09-18 08:53] LABS: Anisocytosis Slight; Eosinophils % (manual) 1 (0-7); Lymphocytes % (manual) 25 (10.0-50.0); Monocytes % (manual) 5 (0-12); Platelet Estimate Decreased
[2024-09-18 09:22] LABS: Alanine Aminotransferase 20 U/L (7-40); Albumin 3.3 g/dL (3.2-4.8); Alkaline Phosphatase 94 U/L (46-116); Anion Gap 9 (5-15); Aspartate Aminotransferase 35 U/L (13-40); BUN/Creatinine Ratio 2.3 (10.0-20.0); Calcium 9.6 mg/dL (8.7-10.4); Carbon Dioxide 29 mmol/L (20-31); Chloride 103 mmol/L (98-107); Glucose 81 mg/dL (74-106); Potassium 3.8 mmol/L (3.5-5.1); Sodium 141 mmol/L (136-145)
[2024-09-18 09:23] LABS: Bilirubin, Total 0.5 mg/dL (0.2-1.0)
[2024-09-18 09:24] LABS: Blood Urea Nitrogen 6 mg/dL (9-23)
[2024-09-18 10:28] LABS: Total Protein 7.3 g/dL (5.7-8.2)
[2024-09-18] MEDS: VANCOMYCIN 500mg/100mL 100 ML IV ONE (14:19)
--- NOTE | 2024-09-18 15:14 | DVHPN2 ---
Progress Note - Dictate Date Seen: September 18, 2024 Has the PT tested + for MRSA If YES, has PT been informed?: Yes Medical Necessity Reason Pt with a Central, PICC or Fol: No Subjective Patient is more awake. vital signs Vital Sign Date Time Temp Pulse Resp B/P (MAP) Pulse Ox O2 Delivery O2 Flow Rate FiO2 09/18/24 13:47 67 194/89 09/18/24 08:38 98.8 17 99 98.8 09/18/24 08:00 Nasal Cannula* 2 28 Total Intake and Output 09/17/24 09/17/24 09/18/24 15:00 23:00 07:00 Intake Total 300 ml 350 ml Output Total 0 ml Balance 300 ml 350 ml medications Current Medications Medications Dose Ordered Sig/Maru Route Start Time Stop Time Status Last Admin Dose Admin Acetaminophen/ Hydrocodone Bitart 1 tab Q4HP PRN PO 09/11/24 19:45 Docusate Sodium 100 mg BIDPRN PRN PO 09/11/24 19:45 Acetaminophen 650 mg Q6HP PRN PO 09/11/24 19:45 Morphine Sulfate 2 mg Q30M PRN IV 09/11/24 21:15 Lorazepam 1 mg Q2HPRN PRN PO 09/11/24 22:00 Cancel Lorazepam 1 mg Q2HPRN PRN IV 09/11/24 22:00 09/16/24 14:33 1 MG Labetalol HCl 20 mg Q2HPRN PRN IV 09/13/24 19:45 09/18/24 13:47 20 MG Levetiracetam 100 ml @ 400 mls/hr BID IV 09/14/24 10:00 09/18/24 10:14 400 MLS/HR Hydralazine HCl 15 mg Q6HP PRN IV 09/15/24 01:00 09/17/24 22:29 15 MG Diagnostic Test (Pha) 1 strip ACHS 09/15/24 17:00 09/18/24 11:47 1 STRIP Dextrose 50 ml UD PRN IV 09/15/24 13:30 Heparin Sodium (Porcine) 5,000 units Q12HR SC 09/15/24 22:00 09/18/24 00:58 5,000 UNITS Ergocalciferol 50,000 unit Q7D PO 09/16/24 09:00 Vancomycin HCl 0 ml @ 0 mls/hr UD IV 09/16/24 06:15 Meropenem 50 ml @ 17 mls/hr DAILY IV 09/16/24 10:00 09/18/24 10:11 17 MLS/HR Acyclovir Sodium 0 ml @ 0 mls/hr PER PHARMACY IV 09/16/24 12:00 Acyclovir Sodium 250 mg/Dextrose 55 ml @ 55 mls/hr DAILY IV 09/17/24 10:00 09/18/24 11:50 55 MLS/HR Dextrose/Sodium Chloride 1,000 ml @ 50 mls/hr Q20H IV 09/16/24 18:30 09/18/24 10:30 50 MLS/HR Pantoprazole Sodium 40 mg DAILY IV 09/17/24 10:00 09/18/24 10:14 40 MG objective HEENT: No evidence of JVD, no oral ulcers. Pulmonary: Diminished lung disease on auscultation bilaterally Cardiovascular S1-S2, no S3 or S4 Abdomen: Bowel sounds positive, soft no rebound tenderness Skin: No rash Neurological: Confused Access: Right upper arm AV graft laboratory and microbiology Laboratory Tests 09/18/24 06:36 Test 09/18/24 06:36 Range/Units Serum Glucose 81 74-106 mg/dL Assessment/Plan Assessment: ESRD on HD via Rt arm AVG Metabolic encephalopathy Severe pulmonary hypertension PA pressure of 130 mmHg Severe tricuspid regurgitation HTN, Seizure h/o shingles Anemia of CKD secondary hyperparathyroidism Metabolic acidosis Azotemia Hypothermia Plan: Last dialysis was Friday, we will schedule for Friday fluid optimization. Plan for cardiac catheterization once mentation improved, cardiology following Monitor H&H, Rule out PE with CTA Neurology consult On antiseizure meds JOSE M post HD as needed. Hb goal 10-11 g/dl Thank you very much for allowing us to participate in the care of this patient Dietary Evaluation Review Comments: 1) Continue to provide assistance at mealtime 2) If feeding tube is in place, TF Nepro carb Steady @ 60ml/hr x 20hr. Water flush 50ml Q6H if allowed. TF @ goal volume provides 2160 kcal (100% energy), 98gm protein (100% protein), 872ml free water. 3) TPN if NPO x 7 days 4) Nephro-Amy 1 tab daily, Ergocalciferol 50,000IU 1 cap weekly 5) Continue current plan of care Expected Outcomes/Goals: To meet at least 75% estimated needs FU 2-3 days Plan discussed with: Patient SHAMAR ORELLANA MD September 18, 2024 15:14
--- NOTE | 2024-09-18 18:17 | DVHPN2 ---
Subjective 09/18 weekend coverage. Patient was only concern is that she wants to be able to clean her dentures. Patient here for acute encephalopathy. 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 No LP done. Patient now on. Diet and tolerating p.o.. Continue p.o. meds since yesterday. Neurology on board. Nephrology on board has severe PH wants to ruled out PE. CTA done and PE was ruled out. Continuing IV antibiotics as per primary team plan. Treating also with pneumonia. COVID flu negative. Repeat cultures are negative. Currently on vanc/meropenem/acyclovir. We will continue primary team's plan. Reviewed: Care Plan, H&P, Labs, Medications, Previous Orders, Radiology Changes from previous H/P or p: No Changes General: Per HPI Objective Vitals Vital Signs Date Time Temp Pulse Resp B/P (MAP) Pulse Ox O2 Delivery O2 Flow Rate FiO2 09/18/24 17:00 98.8 63 18 185/93 (123) 96 98.8 09/18/24 08:00 Nasal Cannula* 2 28 Intake/Output Intake and Output 09/18/24 07:00 Intake Total 650 ml Output Total 0 ml Balance 650 ml Intake Oral 650 ml Output Urine Total 0 ml Exam General Appearance: Alert, Oriented X1, arousable and tries to open eyes. HEENT: Atraumatic, PERRLA, EOMI, Mucous membrane moist/pink Respiratory: bilateral decreased breath sounds and coarse crackles. Cardiovascular: Regular rate, Normal S1, Normal S2, Tricuspid regurgitation murmur present, no chest wall tenderness Abdominal: Distended and flanks are full, Normal bowel sounds, Soft, No tenderness, No hepatospenomegaly, No masses Extremities: No clubbing, No cyanosis, No edema, Normal pulses, No tenderness/swelling Skin: Healed rashes with black eschar on the chest that does not cross the midline, No breakdown, No significant lesion. Neuro: Strength at 5/5 X4 ext, Normal tone, Sensation intact, Cranial nerves 3- 12 NL, Reflexes 2+ Psych/Mental Status: Could not be assessed. General Appearance: Other HEENT: Atraumatic Lungs: Clear to auscultation Cardiovascular: Regular rate, Normal S1, Normal S2 Abdomen: Normal bowel sounds, Soft Extremities: Other Medications Current Medications Medications Dose Ordered Sig/Maru Route Start Time Stop Time Status Last Admin Dose Admin Acetaminophen/ Hydrocodone Bitart 1 tab Q4HP PRN PO 09/11/24 19:45 Docusate Sodium 100 mg BIDPRN PRN PO 09/11/24 19:45 Acetaminophen 650 mg Q6HP PRN PO 09/11/24 19:45 Morphine Sulfate 2 mg Q30M PRN IV 09/11/24 21:15 Lorazepam 1 mg Q2HPRN PRN PO 09/11/24 22:00 Cancel Lorazepam 1 mg Q2HPRN PRN IV 09/11/24 22:00 09/16/24 14:33 1 MG Labetalol HCl 20 mg Q2HPRN PRN IV 09/13/24 19:45 09/18/24 13:47 20 MG Levetiracetam 100 ml @ 400 mls/hr BID IV 09/14/24 10:00 09/18/24 10:14 400 MLS/HR Hydralazine HCl 15 mg Q6HP PRN IV 09/15/24 01:00 09/17/24 22:29 15 MG Diagnostic Test (Pha) 1 strip ACHS 09/15/24 17:00 09/18/24 17:03 1 STRIP Dextrose 50 ml UD PRN IV 09/15/24 13:30 Heparin Sodium (Porcine) 5,000 units Q12HR SC 09/15/24 22:00 09/18/24 00:58 5,000 UNITS Ergocalciferol 50,000 unit Q7D PO 09/16/24 09:00 Vancomycin HCl 0 ml @ 0 mls/hr UD IV 09/16/24 06:15 Meropenem 50 ml @ 17 mls/hr DAILY IV 09/16/24 10:00 09/18/24 10:11 17 MLS/HR Acyclovir Sodium 0 ml @ 0 mls/hr PER PHARMACY IV 09/16/24 12:00 Acyclovir Sodium 250 mg/Dextrose 55 ml @ 55 mls/hr DAILY IV 09/17/24 10:00 09/18/24 11:50 55 MLS/HR Dextrose/Sodium Chloride 1,000 ml @ 50 mls/hr Q20H IV 09/16/24 18:30 09/18/24 10:30 50 MLS/HR Pantoprazole Sodium 40 mg DAILY IV 09/17/24 10:00 09/18/24 10:14 40 MG Laboratory Results Laboratory Tests 09/18/24 06:36 Chemistry Test 09/18/24 06:36 Albumin 3.3 g/dL (3.2-4.8) Calcium Level 9.6 mg/dL (8.7-10.4) Total Protein 7.3 g/dL (5.7-8.2) LFT Test 09/18/24 06:36 Alanine Aminotransferase (ALT) 20 U/L (7-40) Alkaline Phosphatase 94 U/L (46-116) Aspartate Amino Transferase (AST) 35 U/L (13-40) Total Bilirubin 0.5 mg/dL (0.2-1.0) Microbiology Microbiology Date/Time Source Procedure Growth Status 09/16/24 08:52 Nose MRSA Screen - Final Complete 09/15/24 06:32 Blood Blood Culture - Preliminary NO GROWTH AFTER 72 HOURS OF INCUBATION. Resulted Labs and/or images reviewed: Labs reviewed by me, Image(s) reviewed by me Assessment/Plan Assessment/Plan 09/18 weekend coverage. Patient was only concern is that she wants to be able to clean her dentures. Patient here for acute encephalopathy. 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 No LP done. Patient now on. Diet and tolerating p.o.. Continue p.o. meds since yesterday. Neurology on board. Nephrology on board has severe PH wants to ruled out PE. CTA done and PE was ruled out. Continuing IV antibiotics as per primary team plan. Treating also with pneumonia. COVID flu negative. Repeat cultures are negative. Currently on vanc/meropenem/acyclovir. We will continue primary team's plan. NEURO: Acute Metabolic encephalopathy likely due to possible meningitis Recent history of shingles Rule out stroke History of seizure disorder - CT head demonstrated moderate cerebellar atrophy without acute ischemia or hemorrhage - EEG showed moderately abnormal EEG, this EEG seen in moderate cerebral dysfunction due to metabolic/hypoxic encephalopathy or medication effects. - Preliminary blood culture is negative for any growth after 24 hours of incubation - IV Acyclovir 250 mg daily - IV vancomycin as per pharmacy and IV meropenem 1 g daily - Pending MRI - IV Keppra 500 mg b.i.d. - IV Ativan 1 mg q.2h p.r.n. for seizure - Neurology on board CARDIOVASCULAR: Hypertensive emergency Severe pulmonary hypertension Severe tricuspid regurgitation RV overload likely due to severe volume overload and increased left ventricular end-diastolic pressure - CT angio demonstrated cardiomegaly, reflux of contrast the hepatic vein and IVC consistent with right heart dysfunction - Echocardiogram revealed LVEF 55-60% with abnormal septal motion due to RV pressure overload, grade II diastolic dysfunction, severe tricuspid regurgitation, and RVSP at 130 mmHg - Cardiology on board and possible right heart catheterization after patient becomes more alert and oriented. - IV hydralazine 15 mg q.6 PRN, IV labetalol 20 mg q.2h p.r.n. - clonidine 0.2 mg patch once PULMONARY: Severe pulmonary hypertension Ruled out pulmonary embolism Bilateral pleural effusion possible Gram-positive/Gram-negative pneumonia - CT angio showed Bilateral pulmonary airspace consolidation and ground-glass disease most pronounced in the lower lobes, likely secondary to combination of infection/ pneumonia or edema GASTROINTESTINAL: Ascites likely due to volume overload rule out chronic liver disease - Ultrasound of the abdomen showed Cholelithiasis without evidence of cholecystitis. Left pleural effusion. Trace ascites in the left upper quadrant and Hepatic steatosis. GENITOURINARY: ESRD on hemodialysis 3 times a week Vitamin D defieciency likely due to chronic renal disease - Yesterday 2.5L removed and Patient underwent dialysis today for additional UF - Nephrology on board - Strict I&O - Avoid nephrotoxic medication HEME: Chronic microcytic hypochromic anemia likely due to CKD Thrombocytopenia INFECTIOUS DISEASE: Sepsis likely due to pneumonia Possible Gram-positive/ Gram-negative pneumonia Hepatitis C antibody positive Recent history of shingles Possible viral meningitis -CT angio showed Bilateral pulmonary airspace consolidation and ground-glass disease most pronounced in the lower lobes, likely secondary to combination of infection/ pneumonia or edema - IV meropenem 1 g daily and IV vancomycin as per pharmacy and IV acyclovir 250 mg daily. - COVID ,flu negative and MRSA pending - Preliminary Blood culture is negative for any growth in 24 hours of incubation. 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 GI prophylaxis: IV Protonix 40 mg daily Bowel regimen: Code status: full code LINES/DRAINS/ACCESS: IV access: Peripheral line Perdue catheter: DISPOSITION: Telemetry Patient's status discussed with RN Plan discussed with: Patient, Other Date of Service: September 18, 2024 Billing Provider: VARSHA VERDUZCO MD Common Visit Codes: [id number] INP/OBS CARE(HIGH) VARSHA VERDUZCO MD September 18, 2024 18:16
[2024-09-18] MEDS: HYDROcodone-ACET 5/325MG TAB PO PRN (21:32)
--- NOTE | 2024-09-18 22:38 | DVHPN2 ---
Progress Note - Dictate Date Seen: September 18, 2024 Has the PT tested + for MRSA If YES, has PT been informed?: Yes Medical Necessity Reason Pt with a Central, PICC or Fol: No Subjective Patient seen and examined at bedside. Remains on supplemental oxygen Overnight events reviewed. vital signs Vital Sign Date Time Temp Pulse Resp B/P (MAP) Pulse Ox O2 Delivery O2 Flow Rate FiO2 09/18/24 21:34 75 185/78 09/18/24 21:00 98.2 18 91 98.2 09/18/24 08:00 Nasal Cannula* 2 28 Total Intake and Output 09/17/24 09/17/24 09/18/24 14:59 22:59 06:59 Intake Total 155 ml 500 ml 350 ml Output Total 0 ml Balance 155 ml 500 ml 350 ml medications Current Medications Medications Dose Ordered Sig/Maru Route Start Time Stop Time Status Last Admin Dose Admin Acetaminophen/ Hydrocodone Bitart 1 tab Q4HP PRN PO 09/11/24 19:45 09/18/24 21:32 1 TAB Docusate Sodium 100 mg BIDPRN PRN PO 09/11/24 19:45 Acetaminophen 650 mg Q6HP PRN PO 09/11/24 19:45 Morphine Sulfate 2 mg Q30M PRN IV 09/11/24 21:15 Lorazepam 1 mg Q2HPRN PRN PO 09/11/24 22:00 Cancel Lorazepam 1 mg Q2HPRN PRN IV 09/11/24 22:00 09/16/24 14:33 1 MG Labetalol HCl 20 mg Q2HPRN PRN IV 09/13/24 19:45 09/18/24 21:34 20 MG Levetiracetam 100 ml @ 400 mls/hr BID IV 09/14/24 10:00 09/18/24 21:36 400 MLS/HR Hydralazine HCl 15 mg Q6HP PRN IV 09/15/24 01:00 09/17/24 22:29 15 MG Diagnostic Test (Pha) 1 strip ACHS 09/15/24 17:00 09/18/24 21:55 1 STRIP Dextrose 50 ml UD PRN IV 09/15/24 13:30 Heparin Sodium (Porcine) 5,000 units Q12HR SC 09/15/24 22:00 09/18/24 21:47 5,000 UNITS Ergocalciferol 50,000 unit Q7D PO 09/16/24 09:00 Vancomycin HCl 0 ml @ 0 mls/hr UD IV 09/16/24 06:15 Meropenem 50 ml @ 17 mls/hr DAILY IV 09/16/24 10:00 09/18/24 10:11 17 MLS/HR Acyclovir Sodium 0 ml @ 0 mls/hr PER PHARMACY IV 09/16/24 12:00 Acyclovir Sodium 250 mg/Dextrose 55 ml @ 55 mls/hr DAILY IV 09/17/24 10:00 09/18/24 11:50 55 MLS/HR Dextrose/Sodium Chloride 1,000 ml @ 50 mls/hr Q20H IV 09/16/24 18:30 09/18/24 10:30 50 MLS/HR Pantoprazole Sodium 40 mg DAILY IV 09/17/24 10:00 09/18/24 10:14 40 MG objective Gen.: Patient lying in bed in no apparent distress. On supplemental oxygen. Head: Normocephalic, atraumatic. Eyes: EOMI/PERRLA. Ears: Normal hearing. Normal anatomy. Neck/trachea: Trachea midline, supple. Nose: Normal external anatomy. Mouth: Moist mucous membranes. Chest: Decreased air entry bilaterally. No wheezing or rhonchi. Cardiovascular: Positive S1, positive S2. Regular rate and rhythm. Abdomen: Positive bowel sounds in all 4 quadrants. Soft, non-tender, non- distended. : Deferred. Rectal: Deferred. Skin: Warm, dry. Intact. Extremities: 2+ radial pulses bilaterally. No lower extremity edema. Neuro: Awake, alert, confused. No gross motor or sensory deficits. Cranial nerves II through XII intact. Gait not assessed. laboratory and microbiology Laboratory Tests 09/18/24 06:36 Test 09/18/24 06:36 Range/Units Serum Glucose 81 74-106 mg/dL Assessment/Plan Impression: Acute hypoxic respiratory failure Dependence on supplemental oxygen Acute metabolic encephalopathy End-stage renal disease, on hemodialysis Generalized weakness Pulmonary hypertension, RVSP 120 mmHg GGO on imaging Pleural effusion, left greater than right Atelectasis Mediastinal lymphadenopathy Events: Remains on supplemental oxygen 2 LPM NC --> 1 LPM NC Improved O2 requirements Mentation improving. CXR on 09/17/24 revealed interstitial markings with small bilateral pleural effusions and central pulmonary vascular congestion. Volume overload. [id number]-[id number] cardiomegaly. Plan for right heart catheterization with Dr. Arauz pending neurological status and hemodynamic improvement Blood pressure control per Cardiology Hemodialysis per Nephrology Nephrology recs appreciated Incentive spirometry Continue abx Acyclovir Accu-Cheks, ISS. Antiepileptic medication HOB elevation Aspiration precautions GI prophylaxis - Protonix On puree diet Monitor H&H Monitor platelets Transthoracic echocardiogram revealed LVEF 55-60% with abnormal septal motion due to RV pressure overload, grade II diastolic dysfunction, severe tricuspid regurgitation, and RVSP at 130 mmHg. PE ruled out. Labs and imaging reviewed. Rest of plan as noted below. Plan: Supplemental oxygen Titrate to keep O2 sats above 92%. Head of bed elevation Aspiration precautions Echo report reviewed. Cardiology recommendations appreciated Continue antibiotics Antiviral medication Incentive spirometry HD per Nephrology Follow up Nephrology recommendations Monitor renal function. Monitor electrolytes. Supplement as necessary. Monitor ins and outs. GI prophylaxis - Protonix DVT prophylaxis - heparin SC Prognosis: Poor given patient's multiple co-morbidities. Rest of plan per hospitalist and other consultants. Thank you, Dr. Tripp, for allowing me to participate in this patient's care. Further recommendations will depend on the patient's clinical course. Please do not hesitate to contact me if you have any questions or concerns. This medical document was created using an electronic medical record system with Polar dictation system. Although these documentations are being carefully reviewed, there may still be some phonetic and typographical changes. The errors are purely typographical, due to imperfection on the software program, and do not reflect any compromise in the patient's medical care. Dietary Evaluation Review Comments: 1) Continue to provide assistance at mealtime 2) If feeding tube is in place, TF Nepro carb Steady @ 60ml/hr x 20hr. Water flush 50ml Q6H if allowed. TF @ goal volume provides 2160 kcal (100% energy), 98gm protein (100% protein), 872ml free water. 3) TPN if NPO x 7 days 4) Nephro-Amy 1 tab daily, Ergocalciferol 50,000IU 1 cap weekly 5) Continue current plan of care Expected Outcomes/Goals: To meet at least 75% estimated needs FU 2-3 days Plan discussed with: Patient, Other (BIANCA Peterson MD September 18, 2024 22:38
--- NOTE | 2024-09-18 23:37 | DVHPN2 ---
Progress Note - Dictate Date Seen: September 18, 2024 Has the PT tested + for MRSA If YES, has PT been informed?: Yes Medical Necessity Reason Pt with a Central, PICC or Fol: No Subjective Ms. Wright is a 68 years old female with a history of hypertension, end-stage renal failure on hemodialysis, seizure disorder, she was brought to the [facility] on 09/11/2024 with a chief complaint of altered mental status. I have seen and examined the patient, I have discussed with her nurse, she is awake, oriented x3, he can maintain good conversation She reports the shingles still hurt her Neck is supple Phenytoin, 09/13/2024: 4.9 ABG, 09/12/2024: CO2 retention WBC/HB/PLT/MCV, 09/12/2024: 4/9.9/160/86.7 BUN/CR, 09/12/2024: 28/6.37 TBI/AST/ALT/AP, 09/12/2024: 0.6/67/30/143 TSH, 09/13/2024: 2.01 EEG, 09/14/24: A moderately abnormal EEG Chest x-ray, 09/11/2024: 1. Moderately severe cardiomegaly 2. Moderate bilateral interstitial changes CT head, 09/12/2024: 1. No acute intracranial hemorrhage 2. No CT findings of territorial ischemia vital signs Vital Sign Date Time Temp Pulse Resp B/P (MAP) Pulse Ox O2 Delivery O2 Flow Rate FiO2 09/18/24 21:34 75 185/78 09/18/24 21:00 98.2 18 91 98.2 09/18/24 08:00 Nasal Cannula* 2 28 Total Intake and Output 09/17/24 09/17/24 09/18/24 15:00 23:00 07:00 Intake Total 155 ml 500 ml 350 ml Output Total 0 ml Balance 155 ml 500 ml 350 ml medications Current Medications Medications Dose Ordered Sig/Maru Route Start Time Stop Time Status Last Admin Dose Admin Acetaminophen/ Hydrocodone Bitart 1 tab Q4HP PRN PO 09/11/24 19:45 09/18/24 21:32 1 TAB Docusate Sodium 100 mg BIDPRN PRN PO 09/11/24 19:45 Acetaminophen 650 mg Q6HP PRN PO 09/11/24 19:45 Morphine Sulfate 2 mg Q30M PRN IV 09/11/24 21:15 Lorazepam 1 mg Q2HPRN PRN PO 09/11/24 22:00 Cancel Lorazepam 1 mg Q2HPRN PRN IV 09/11/24 22:00 09/16/24 14:33 1 MG Labetalol HCl 20 mg Q2HPRN PRN IV 09/13/24 19:45 09/18/24 21:34 20 MG Levetiracetam 100 ml @ 400 mls/hr BID IV 09/14/24 10:00 09/18/24 21:36 400 MLS/HR Hydralazine HCl 15 mg Q6HP PRN IV 09/15/24 01:00 09/17/24 22:29 15 MG Diagnostic Test (Pha) 1 strip ACHS 09/15/24 17:00 09/18/24 21:55 1 STRIP Dextrose 50 ml UD PRN IV 09/15/24 13:30 Heparin Sodium (Porcine) 5,000 units Q12HR SC 09/15/24 22:00 09/18/24 21:47 5,000 UNITS Ergocalciferol 50,000 unit Q7D PO 09/16/24 09:00 Vancomycin HCl 0 ml @ 0 mls/hr UD IV 09/16/24 06:15 Meropenem 50 ml @ 17 mls/hr DAILY IV 09/16/24 10:00 09/18/24 10:11 17 MLS/HR Acyclovir Sodium 0 ml @ 0 mls/hr PER PHARMACY IV 09/16/24 12:00 Acyclovir Sodium 250 mg/Dextrose 55 ml @ 55 mls/hr DAILY IV 09/17/24 10:00 09/18/24 11:50 55 MLS/HR Dextrose/Sodium Chloride 1,000 ml @ 50 mls/hr Q20H IV 09/16/24 18:30 09/18/24 10:30 50 MLS/HR Pantoprazole Sodium 40 mg DAILY IV 09/17/24 10:00 09/18/24 10:14 40 MG objective General: the patient is well developed and nourished. No acute distress. MENTAL STATUS: Subjective SPEECH, LANGUAGE, HIGHER CORTICAL FUNCTION: No aphasia or dysarthria CRANIAL NERVES: Pupils are equal, round and reactive. EOMs full and conjugate. Facial sensation ok in all three divisions bilaterally. Mandibular strength intact. Facial muscles symmetrical and strength intact. SENSATION: Sensation to touch and pinprick is fine MOTOR: Normal tone in the upper and lower extremity. Normal muscle bulk. No fasciculations. No abnormal movements or posturing. She moves the arms REFLEXES: Deep tendon reflexes are symmetrical. No pathological reflexes. CEREBELLAR/COORDINATION: Deferred GAIT/STATION: deferred. laboratory and microbiology Laboratory Tests 09/18/24 06:36 Test 09/18/24 06:36 Range/Units Serum Glucose 81 74-106 mg/dL Problem List Altered mental status, visual hallucination Metabolic encephalopathy Other acute central nervous system disorder, encephalitis, stroke, seizure, less likely Recent shingles History of seizure with atypical feature Assessment/Plan Monitoring Supportive treatment Telemetry Urinalysis Urine drug screening MRI brain scan Keppra 500 mg IV b.i.d. Ativan for seizure breakthrough Up to chair Physical therapy More recommendation per clinical course This medical document was created using an electronic medical record system with [employer] dictation system. Although this document has been carefully reviewed, there may still be some phonetic and typographical errors. These areas are purely typographical due to imperfections of the software programs, and do not reflect any compromise in the patient's medical care. Prognosis poor Dietary Evaluation Review Comments: 1) Continue to provide assistance at mealtime 2) If feeding tube is in place, TF Nepro carb Steady @ 60ml/hr x 20hr. Water flush 50ml Q6H if allowed. TF @ goal volume provides 2160 kcal (100% energy), 98gm protein (100% protein), 872ml free water. 3) TPN if NPO x 7 days 4) Nephro-Amy 1 tab daily, Ergocalciferol 50,000IU 1 cap weekly 5) Continue current plan of care Expected Outcomes/Goals: To meet at least 75% estimated needs FU 2-3 days Plan discussed with: Other KIT GRISSOM MD September 18, 2024 23:37
[2024-09-19] VITALS (8 sets, daily range): BP systolic 181–193; BP diastolic 82–104; PULSE 65–73; RESP 17–18; TEMP 97.8–98.7; O2SAT 91–100
[2024-09-19 05:51] LABS: Hematocrit 25.4 % (36.0-46.0); Hemoglobin 8.6 g/dL (12.2-16.2); Mean Corpuscular Hemoglobin 30.2 pg (28.0-32.0); Mean Corpuscular Hgb Conc. 33.9 g/dL (32.0-36.0); Platelet Count (auto) 119 10^3/uL (140-450); Red Blood Cells 2.85 10^6/uL (4.0-5.20); Red Cell Distribution Width 17.4 % (11.8-14.3)
[2024-09-19 06:03] LABS: Basophils % (manual) 0 (0.0-2.0); Blast Cells 0; Metamyelocytes % 0; Promyelocytes % 0; Reactive Lymphocytes 0
[2024-09-19 06:04] LABS: Alanine Aminotransferase 17 U/L (7-40); Albumin 3.3 g/dL (3.2-4.8); Alkaline Phosphatase 107 U/L (46-116); Anion Gap 8 (5-15); Aspartate Aminotransferase 35 U/L (13-40); Bilirubin, Total 0.6 mg/dL (0.2-1.0); Calcium 9.3 mg/dL (8.7-10.4); Carbon Dioxide 28 mmol/L (20-31); Chloride 101 mmol/L (98-107); Glucose 92 mg/dL (74-106); Potassium 3.5 mmol/L (3.5-5.1); Sodium 137 mmol/L (136-145); Total Protein 7.4 g/dL (5.7-8.2)
[2024-09-19 06:05] LABS: Blood Urea Nitrogen 8 mg/dL (9-23)
[2024-09-19] MEDS: SODIUM CHL 0.9% 1000 ML BAG XX ONE (07:00)
[2024-09-19 07:35] LABS: Anisocytosis Slight; Band Neutrophils % (manual) 2; Eosinophils % (manual) 10 (0-7); Lymphocytes % (manual) 35 (10.0-50.0); Monocytes % (manual) 10 (0-12); Myelocytes % 2; Platelet Estimate Decreased
--- NOTE | 2024-09-19 14:33 | DVH ---
EXAMINATION: MRI BRAIN HEAD WO CONTRAST INDICATION: Sz, acute encephalopathy COMPARISON: None TECHNIQUE: Multiplanar, multisequence magnetic resonance imaging of the brain was performed without the use of i ntravenous contrast. FINDINGS: No evidence of acute or remote infarct. No intracranial hemorrhage. No mass effect. There is periventricular/deep white matter T2/FLAIR hyperintensity is nonspecific, but most commonly associated with chronic microvascular disease. The ventricles and sulci are normal in size for age. Clear basal cisterns. Flow voids in the major intracranial vessels are maintained. No abnormality of the orbits. Paranasal sinuses and mastoid air cells are clear. No abnormality of the visualized osseous structures and extracranial soft tissues. IMPRESSION: No acute infarct, intracranial hemorrhage, mass effect, or hydrocephalus.
[2024-09-19] MEDS: NIFEdipine ER 30 MG TAB PO ONE (14:52)
--- NOTE | 2024-09-19 15:02 | DVHPN2 ---
Progress Note - Dictate Date Seen: September 19, 2024 Has the PT tested + for MRSA If YES, has PT been informed?: Yes Medical Necessity Reason Pt with a Central, PICC or Fol: No Subjective Patient is much more alert she is undergoing dialysis. She feels well except for generalized weakness wants to go home if possible. vital signs Vital Sign Date Time Temp Pulse Resp B/P (MAP) Pulse Ox O2 Delivery O2 Flow Rate FiO2 09/19/24 14:52 196/103 09/19/24 09:00 98.1 71 18 95 98.1 09/19/24 08:00 Nasal Cannula* 2 28 Total Intake and Output 09/18/24 09/18/24 09/19/24 15:00 23:00 07:00 Intake Total 205 ml 900 ml 580 ml Balance 205 ml 900 ml 580 ml medications Current Medications Medications Dose Ordered Sig/Maru Route Start Time Stop Time Status Last Admin Dose Admin Acetaminophen/ Hydrocodone Bitart 1 tab Q4HP PRN PO 09/11/24 19:45 09/19/24 13:20 1 TAB Docusate Sodium 100 mg BIDPRN PRN PO 09/11/24 19:45 Acetaminophen 650 mg Q6HP PRN PO 09/11/24 19:45 Morphine Sulfate 2 mg Q30M PRN IV 09/11/24 21:15 Lorazepam 1 mg Q2HPRN PRN PO 09/11/24 22:00 Cancel Lorazepam 1 mg Q2HPRN PRN IV 09/11/24 22:00 09/16/24 14:33 1 MG Levetiracetam 100 ml @ 400 mls/hr BID IV 09/14/24 10:00 09/19/24 10:26 400 MLS/HR Diagnostic Test (Pha) 1 strip ACHS 09/15/24 17:00 09/19/24 11:30 1 STRIP Dextrose 50 ml UD PRN IV 09/15/24 13:30 Heparin Sodium (Porcine) 5,000 units Q12HR SC 09/15/24 22:00 09/19/24 10:00 5,000 UNITS Ergocalciferol 50,000 unit Q7D PO 09/16/24 09:00 Vancomycin HCl 0 ml @ 0 mls/hr UD IV 09/16/24 06:15 Meropenem 50 ml @ 17 mls/hr DAILY IV 09/16/24 10:00 09/19/24 10:26 17 MLS/HR Acyclovir Sodium 0 ml @ 0 mls/hr PER PHARMACY IV 09/16/24 12:00 Acyclovir Sodium 250 mg/Dextrose 55 ml @ 55 mls/hr DAILY IV 09/17/24 10:00 09/19/24 10:26 55 MLS/HR Dextrose/Sodium Chloride 1,000 ml @ 50 mls/hr Q20H IV 09/16/24 18:30 09/18/24 10:30 50 MLS/HR Pantoprazole Sodium 40 mg DAILY IV 09/17/24 10:00 09/19/24 10:26 40 MG Hydralazine HCl 15 mg Q6HP PRN IV 09/19/24 12:30 Nifedipine 60 mg DAILY PO 09/20/24 10:00 objective HEENT: No evidence of JVD, no oral ulcers. Pulmonary: Diminished lung disease on auscultation bilaterally Cardiovascular S1-S2, no S3 or S4 Abdomen: Bowel sounds positive, soft no rebound tenderness Skin: No rash Neurological: Alert and oriented Positive generalized weakness Access: Right upper arm AV graft laboratory and microbiology Laboratory Tests 09/19/24 04:55 Test 09/19/24 04:55 Range/Units Serum Glucose 92 74-106 mg/dL Assessment/Plan Assessment: ESRD on HD via Rt arm AVG Improved Metabolic encephalopathy Severe pulmonary hypertension PA pressure of 130 mmHg Severe tricuspid regurgitation HTN, Seizure h/o shingles Anemia of CKD secondary hyperparathyroidism Metabolic acidosis Azotemia Hypothermia Plan: Dialysis ongoing today for fluid balance optimization. Plan for cardiac catheterization once mentation improved, cardiology following Monitor H&H, Rule out PE with CTA Neurology consult On antiseizure meds JOSE M post HD as needed. Hb goal 10-11 g/dl Okay to discharge home from Nephrology perspective after dialysis today. Thank you very much for allowing us to participate in the care of this patient Dietary Evaluation Review Comments: 1) Continue to provide assistance at mealtime 2) If feeding tube is in place, TF Nepro carb Steady @ 60ml/hr x 20hr. Water flush 50ml Q6H if allowed. TF @ goal volume provides 2160 kcal (100% energy), 98gm protein (100% protein), 872ml free water. 3) TPN if NPO x 7 days 4) Nephro-Amy 1 tab daily, Ergocalciferol 50,000IU 1 cap weekly 5) Continue current plan of care Expected Outcomes/Goals: To meet at least 75% estimated needs FU 2-3 days Plan discussed with: Patient SHAMAR ORELLANA MD September 19, 2024 15:02
--- NOTE | 2024-09-19 15:50 | DVHPN2 ---
Subjective 09/18 weekend coverage. Patient was only concern is that she wants to be able to clean her dentures. Patient here for acute encephalopathy. 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 No LP done. Patient now on. Diet and tolerating p.o.. Continue p.o. meds since yesterday. Neurology on board. Nephrology on board has severe PH wants to ruled out PE. CTA done and PE was ruled out. Continuing IV antibiotics as per primary team plan. Treating also with pneumonia. COVID flu negative. Repeat cultures are negative. Currently on vanc/meropenem/acyclovir. We will continue primary team's plan. 09/19 patient is A&O times 2. She was alert, following commands, no agitation. Patient was tolerating. Diet well [employer] is done, we will continue. I with liquid okay. Patient was taking medications. HD today. Patient was hypotensive 170s to 190s. We will start Procardia, hydralazine IV 15 q.6h only for SBP more than 170. Continue other treatment per primary team. Continue IV antibiotics. Patient has a cough we will have low threshold to repeat flu COVID but hold off for now. Defer ongoing treatment to primary team tomorrow Reviewed: Care Plan, H&P, Labs, Medications, Previous Orders, Radiology Changes from previous H/P or p: No Changes General: Per HPI Objective Vitals Vital Signs Date Time Temp Pulse Resp B/P (MAP) Pulse Ox O2 Delivery O2 Flow Rate FiO2 09/19/24 14:52 196/103 09/19/24 13:00 98.0 66 18 95 98.0 09/19/24 08:00 Nasal Cannula* 2 28 Intake/Output Intake and Output 09/19/24 07:00 Intake Total 1685 ml Balance 1685 ml Intake Oral 1080 ml IV Total 605 ml # Voids 50 # Bowel Movements 5 Exam General Appearance: Alert, Oriented X1, arousable and tries to open eyes. HEENT: Atraumatic, PERRLA, EOMI, Mucous membrane moist/pink Respiratory: bilateral decreased breath sounds and coarse crackles. Cardiovascular: Regular rate, Normal S1, Normal S2, Tricuspid regurgitation murmur present, no chest wall tenderness Abdominal: Distended and flanks are full, Normal bowel sounds, Soft, No tenderness, No hepatospenomegaly, No masses Extremities: No clubbing, No cyanosis, No edema, Normal pulses, No tenderness/swelling Skin: Healed rashes with black eschar on the chest that does not cross the midline, No breakdown, No significant lesion. Neuro: Strength at 5/5 X4 ext, Normal tone, Sensation intact, Cranial nerves 3- 12 NL, Reflexes 2+ Psych/Mental Status: Could not be assessed. General Appearance: Other HEENT: Atraumatic Lungs: Clear to auscultation Cardiovascular: Regular rate, Normal S1, Normal S2 Abdomen: Normal bowel sounds, Soft Extremities: Other Medications Current Medications Medications Dose Ordered Sig/Maru Route Start Time Stop Time Status Last Admin Dose Admin Acetaminophen/ Hydrocodone Bitart 1 tab Q4HP PRN PO 09/11/24 19:45 09/19/24 13:20 1 TAB Docusate Sodium 100 mg BIDPRN PRN PO 09/11/24 19:45 Acetaminophen 650 mg Q6HP PRN PO 09/11/24 19:45 Morphine Sulfate 2 mg Q30M PRN IV 09/11/24 21:15 Lorazepam 1 mg Q2HPRN PRN PO 09/11/24 22:00 Cancel Lorazepam 1 mg Q2HPRN PRN IV 09/11/24 22:00 09/16/24 14:33 1 MG Levetiracetam 100 ml @ 400 mls/hr BID IV 09/14/24 10:00 09/19/24 10:26 400 MLS/HR Diagnostic Test (Pha) 1 strip ACHS 09/15/24 17:00 09/19/24 11:30 1 STRIP Dextrose 50 ml UD PRN IV 09/15/24 13:30 Heparin Sodium (Porcine) 5,000 units Q12HR SC 09/15/24 22:00 09/19/24 10:00 5,000 UNITS Ergocalciferol 50,000 unit Q7D PO 09/16/24 09:00 Vancomycin HCl 0 ml @ 0 mls/hr UD IV 09/16/24 06:15 Meropenem 50 ml @ 17 mls/hr DAILY IV 09/16/24 10:00 09/19/24 10:26 17 MLS/HR Acyclovir Sodium 0 ml @ 0 mls/hr PER PHARMACY IV 09/16/24 12:00 Acyclovir Sodium 250 mg/Dextrose 55 ml @ 55 mls/hr DAILY IV 09/17/24 10:00 09/19/24 10:26 55 MLS/HR Dextrose/Sodium Chloride 1,000 ml @ 50 mls/hr Q20H IV 09/16/24 18:30 09/18/24 10:30 50 MLS/HR Pantoprazole Sodium 40 mg DAILY IV 09/17/24 10:00 09/19/24 10:26 40 MG Hydralazine HCl 15 mg Q6HP PRN IV 09/19/24 12:30 Nifedipine 60 mg DAILY PO 09/20/24 10:00 Laboratory Results Laboratory Tests 09/19/24 04:55 Chemistry Test 09/19/24 04:55 Albumin 3.3 g/dL (3.2-4.8) Calcium Level 9.3 mg/dL (8.7-10.4) Total Protein 7.4 g/dL (5.7-8.2) LFT Test 09/19/24 04:55 Alanine Aminotransferase (ALT) 17 U/L (7-40) Alkaline Phosphatase 107 U/L (46-116) Aspartate Amino Transferase (AST) 35 U/L (13-40) Total Bilirubin 0.6 mg/dL (0.2-1.0) Microbiology Microbiology Date/Time Source Procedure Growth Status 09/16/24 08:52 Nose MRSA Screen - Final Complete 09/15/24 06:32 Blood Blood Culture - Preliminary NO GROWTH AFTER 72 HOURS OF INCUBATION. Resulted Labs and/or images reviewed: Labs reviewed by me, Image(s) reviewed by me Assessment/Plan Assessment/Plan 09/19 patient is A&O times 2. She was alert, following commands, no agitation. Patient was tolerating. Diet well [employer]IST is done, we will continue. I with liquid okay. Patient was taking medications. HD today. Patient was hypotensive 170s to 190s. We will start Procardia, hydralazine IV 15 q.6h only for SBP more than 170. Continue other treatment per primary team. Continue IV antibiotics. Patient has a cough we will have low threshold to repeat flu COVID but hold off for now. Defer ongoing treatment to primary team tomorrow NEURO: Acute Metabolic encephalopathy likely due to possible meningitis Recent history of shingles Rule out stroke History of seizure disorder - CT head demonstrated moderate cerebellar atrophy without acute ischemia or hemorrhage - EEG showed moderately abnormal EEG, this EEG seen in moderate cerebral dysfunction due to metabolic/hypoxic encephalopathy or medication effects. - Preliminary blood culture is negative for any growth after 24 hours of incubation - IV Acyclovir 250 mg daily - IV vancomycin as per pharmacy and IV meropenem 1 g daily - Pending MRI - IV Keppra 500 mg b.i.d. - IV Ativan 1 mg q.2h p.r.n. for seizure - Neurology on board CARDIOVASCULAR: Hypertensive emergency Severe pulmonary hypertension Severe tricuspid regurgitation RV overload likely due to severe volume overload and increased left ventricular end-diastolic pressure - CT angio demonstrated cardiomegaly, reflux of contrast the hepatic vein and IVC consistent with right heart dysfunction - Echocardiogram revealed LVEF 55-60% with abnormal septal motion due to RV pressure overload, grade II diastolic dysfunction, severe tricuspid regurgitation, and RVSP at 130 mmHg - Cardiology on board and possible right heart catheterization after patient becomes more alert and oriented. - IV hydralazine 15 mg q.6 PRN, IV labetalol 20 mg q.2h p.r.n. - clonidine 0.2 mg patch once PULMONARY: Severe pulmonary hypertension Ruled out pulmonary embolism Bilateral pleural effusion possible Gram-positive/Gram-negative pneumonia - CT angio showed Bilateral pulmonary airspace consolidation and ground-glass disease most pronounced in the lower lobes, likely secondary to combination of infection/ pneumonia or edema GASTROINTESTINAL: Ascites likely due to volume overload rule out chronic liver disease - Ultrasound of the abdomen showed Cholelithiasis without evidence of cholecystitis. Left pleural effusion. Trace ascites in the left upper quadrant and Hepatic steatosis. GENITOURINARY: ESRD on hemodialysis 3 times a week Vitamin D defieciency likely due to chronic renal disease - Yesterday 2.5L removed and Patient underwent dialysis today for additional UF - Nephrology on board - Strict I&O - Avoid nephrotoxic medication HEME: Chronic microcytic hypochromic anemia likely due to CKD Thrombocytopenia INFECTIOUS DISEASE: Sepsis likely due to pneumonia Possible Gram-positive/ Gram-negative pneumonia Hepatitis C antibody positive Recent history of shingles Possible viral meningitis -CT angio showed Bilateral pulmonary airspace consolidation and ground-glass disease most pronounced in the lower lobes, likely secondary to combination of infection/ pneumonia or edema - IV meropenem 1 g daily and IV vancomycin as per pharmacy and IV acyclovir 250 mg daily. - COVID ,flu negative and MRSA pending - Preliminary Blood culture is negative for any growth in 24 hours of incubation. MUSCULOSKELETAL: Diffuse osseous sclerosis, likely secondary to renal osteodystrophy DERMATOLOGY: Healed black eschar on the chest that does not cross midline possibly residual from shingles DIET: Pureed diet DVT prophylax: Heparin 20051 units b.i.d. GI prophylaxis: IV Protonix 40 mg daily Bowel regimen: Code status: full code LINES/DRAINS/ACCESS: IV access: Peripheral line Perdue catheter: DISPOSITION: Telemetry Patient's status discussed with RN Plan discussed with: Patient, Other My Orders Orders - VARSHA VERDUZCO MD Procedure Category Date Status Time Hydralazine Injection PHA 09/19/24 In Process (Apresoline Inject 12:30 Nifedipine Er PHA 09/20/24 In Process (Procardia Xl 10:00 Date of Service: September 19, 2024 Billing Provider: VARSHA VERDUZCO MD Common Visit Codes: [id number] INP/OBS CARE(HIGH) VARSHA VERDUZCO MD September 19, 2024 15:50
[2024-09-19] MEDS: EPOETIN ALFA-EPBX 10,000 UNIT/1ML VIAL SC ONE (21:26)
[2024-09-19] MEDS: hydrALAZINE HCL 20 MG/ML VL IV PRN (21:26)
--- NOTE | 2024-09-19 23:09 | DVHPN2 ---
Progress Note - Dictate Date Seen: September 19, 2024 Has the PT tested + for MRSA If YES, has PT been informed?: Yes Medical Necessity Reason Pt with a Central, PICC or Fol: No Subjective Patient seen and examined at bedside. Remains on supplemental oxygen Overnight events reviewed. vital signs Vital Sign Date Time Temp Pulse Resp B/P (MAP) Pulse Ox O2 Delivery O2 Flow Rate FiO2 09/19/24 21:26 192/104 09/19/24 21:00 98.2 73 18 100 98.2 09/19/24 20:00 Nasal Cannula* 2 28 Total Intake and Output 09/18/24 09/18/24 09/19/24 15:00 23:00 07:00 Intake Total 205 ml 900 ml 580 ml Balance 205 ml 900 ml 580 ml medications Current Medications Medications Dose Ordered Sig/Maru Route Start Time Stop Time Status Last Admin Dose Admin Acetaminophen/ Hydrocodone Bitart 1 tab Q4HP PRN PO 09/11/24 19:45 09/19/24 22:31 1 TAB Docusate Sodium 100 mg BIDPRN PRN PO 09/11/24 19:45 Acetaminophen 650 mg Q6HP PRN PO 09/11/24 19:45 Morphine Sulfate 2 mg Q30M PRN IV 09/11/24 21:15 Lorazepam 1 mg Q2HPRN PRN PO 09/11/24 22:00 Cancel Lorazepam 1 mg Q2HPRN PRN IV 09/11/24 22:00 09/16/24 14:33 1 MG Levetiracetam 100 ml @ 400 mls/hr BID IV 09/14/24 10:00 09/19/24 21:26 400 MLS/HR Diagnostic Test (Pha) 1 strip ACHS 09/15/24 17:00 09/19/24 21:27 1 STRIP Dextrose 50 ml UD PRN IV 09/15/24 13:30 Heparin Sodium (Porcine) 5,000 units Q12HR SC 09/15/24 22:00 09/19/24 21:27 5,000 UNITS Ergocalciferol 50,000 unit Q7D PO 09/16/24 09:00 Vancomycin HCl 0 ml @ 0 mls/hr UD IV 09/16/24 06:15 Meropenem 50 ml @ 17 mls/hr DAILY IV 09/16/24 10:00 09/19/24 10:26 17 MLS/HR Acyclovir Sodium 0 ml @ 0 mls/hr PER PHARMACY IV 09/16/24 12:00 Acyclovir Sodium 250 mg/Dextrose 55 ml @ 55 mls/hr DAILY IV 09/17/24 10:00 09/19/24 10:26 55 MLS/HR Dextrose/Sodium Chloride 1,000 ml @ 50 mls/hr Q20H IV 09/16/24 18:30 09/18/24 10:30 50 MLS/HR Pantoprazole Sodium 40 mg DAILY IV 09/17/24 10:00 09/19/24 10:26 40 MG Hydralazine HCl 15 mg Q6HP PRN IV 09/19/24 12:30 09/19/24 21:26 15 MG Nifedipine 60 mg DAILY PO 09/20/24 10:00 objective Gen.: Patient lying in bed in no apparent distress. On supplemental oxygen. Head: Normocephalic, atraumatic. Eyes: EOMI/PERRLA. Ears: Normal hearing. Normal anatomy. Neck/trachea: Trachea midline, supple. Nose: Normal external anatomy. Mouth: Moist mucous membranes. Chest: Decreased air entry bilaterally. No wheezing or rhonchi. Cardiovascular: Positive S1, positive S2. Regular rate and rhythm. Abdomen: Positive bowel sounds in all 4 quadrants. Soft, non-tender, non- distended. : Deferred. Rectal: Deferred. Skin: Warm, dry. Intact. Extremities: 2+ radial pulses bilaterally. No lower extremity edema. Neuro: Awake, alert, confused. No gross motor or sensory deficits. Cranial nerves II through XII intact. Gait not assessed. laboratory and microbiology Laboratory Tests 09/19/24 04:55 Test 09/19/24 04:55 Range/Units Serum Glucose 92 74-106 mg/dL Assessment/Plan Impression: Acute hypoxic respiratory failure Dependence on supplemental oxygen Acute metabolic encephalopathy End-stage renal disease, on hemodialysis Generalized weakness Pulmonary hypertension, RVSP 120 mmHg GGO on imaging Pleural effusion, left greater than right Atelectasis Mediastinal lymphadenopathy Events: Remains on supplemental oxygen On 3 LPM NC Taper O2 as tolerated Mentation improving. Brain MRI shows no acute ICH or infarct. Plan for right heart catheterization with Dr. Arauz pending neurological status and hemodynamic improvement Blood pressure control per Cardiology Hemodialysis per Nephrology Nephrology recs appreciated BP remains elevated Continue bronchodilators Continue antibiotics Acyclovir Incentive spirometry Accu-Cheks, ISS. Continue antiepileptic - Keppra HOB elevation Aspiration precautions GI prophylaxis - Protonix On puree diet Monitor H&H Monitor platelets Transthoracic echocardiogram revealed LVEF 55-60% with abnormal septal motion due to RV pressure overload, grade II diastolic dysfunction, severe tricuspid regurgitation, and RVSP at 130 mmHg. PE ruled out. Labs and imaging reviewed. Rest of plan as noted below. Plan: Supplemental oxygen Titrate to keep O2 sats above 92%. Head of bed elevation Aspiration precautions Echo report reviewed. Cardiology recommendations appreciated Continue antibiotics Antiviral medication Incentive spirometry HD per Nephrology Follow up Nephrology recommendations Monitor renal function. Monitor electrolytes. Supplement as necessary. Monitor ins and outs. GI prophylaxis - Protonix DVT prophylaxis - heparin SC Prognosis: Poor given patient's multiple co-morbidities. Rest of plan per hospitalist and other consultants. Thank you, Dr. Tripp, for allowing me to participate in this patient's care. Further recommendations will depend on the patient's clinical course. Please do not hesitate to contact me if you have any questions or concerns. This medical document was created using an electronic medical record system with [employer] dictation system. Although these documentations are being carefully reviewed, there may still be some phonetic and typographical changes. The errors are purely typographical, due to imperfection on the software program, and do not reflect any compromise in the patient's medical care. Dietary Evaluation Review Comments: 1) Continue to provide assistance at mealtime 2) If feeding tube is in place, TF Nepro carb Steady @ 60ml/hr x 20hr. Water flush 50ml Q6H if allowed. TF @ goal volume provides 2160 kcal (100% energy), 98gm protein (100% protein), 872ml free water. 3) TPN if NPO x 7 days 4) Nephro-Amy 1 tab daily, Ergocalciferol 50,000IU 1 cap weekly 5) Continue current plan of care Expected Outcomes/Goals: To meet at least 75% estimated needs FU 2-3 days Plan discussed with: Patient, Other (GEORGIE Christianson) BIANCA TAM MD September 19, 2024 23:09
[2024-09-20] VITALS (8 sets, daily range): BP systolic 152–165; BP diastolic 76–94; PULSE 59–71; RESP 16–20; TEMP 97.6–98.6; O2SAT 98–100
[2024-09-20] MEDS ORDERED: SODIUM CHL 0.9% 1000 ML BAG XX ONE (07:00)
--- NOTE | 2024-09-20 08:15 | DVHPN2 ---
Progress Note - Dictate Date Seen: September 20, 2024 Has the PT tested + for MRSA If YES, has PT been informed?: Yes Medical Necessity Reason Pt with a Central, PICC or Fol: No Subjective Feels better vital signs Vital Sign Date Time Temp Pulse Resp B/P (MAP) Pulse Ox O2 Delivery O2 Flow Rate FiO2 09/20/24 05:00 97.6 71 16 152/90 (110) 98 97.6 09/19/24 20:00 Nasal Cannula* 2 28 Total Intake and Output 09/19/24 09/19/24 09/20/24 15:00 23:00 07:00 Intake Total 100 ml 500 ml 850 ml Balance 100 ml 500 ml 850 ml medications Current Medications Medications Dose Ordered Sig/Maru Route Start Time Stop Time Status Last Admin Dose Admin Acetaminophen/ Hydrocodone Bitart 1 tab Q4HP PRN PO 09/11/24 19:45 09/19/24 22:31 1 TAB Docusate Sodium 100 mg BIDPRN PRN PO 09/11/24 19:45 Acetaminophen 650 mg Q6HP PRN PO 09/11/24 19:45 Morphine Sulfate 2 mg Q30M PRN IV 09/11/24 21:15 Lorazepam 1 mg Q2HPRN PRN PO 09/11/24 22:00 Cancel Lorazepam 1 mg Q2HPRN PRN IV 09/11/24 22:00 09/16/24 14:33 1 MG Levetiracetam 100 ml @ 400 mls/hr BID IV 09/14/24 10:00 09/19/24 21:26 400 MLS/HR Diagnostic Test (Pha) 1 strip ACHS 09/15/24 17:00 09/20/24 05:57 1 STRIP Dextrose 50 ml UD PRN IV 09/15/24 13:30 Heparin Sodium (Porcine) 5,000 units Q12HR SC 09/15/24 22:00 09/19/24 21:27 5,000 UNITS Ergocalciferol 50,000 unit Q7D PO 09/16/24 09:00 Vancomycin HCl 0 ml @ 0 mls/hr UD IV 09/16/24 06:15 Meropenem 50 ml @ 17 mls/hr DAILY IV 09/16/24 10:00 09/19/24 10:26 17 MLS/HR Acyclovir Sodium 0 ml @ 0 mls/hr PER PHARMACY IV 09/16/24 12:00 Acyclovir Sodium 250 mg/Dextrose 55 ml @ 55 mls/hr DAILY IV 09/17/24 10:00 09/19/24 10:26 55 MLS/HR Dextrose/Sodium Chloride 1,000 ml @ 50 mls/hr Q20H IV 09/16/24 18:30 09/19/24 23:18 50 MLS/HR Pantoprazole Sodium 40 mg DAILY IV 09/17/24 10:00 09/19/24 10:26 40 MG Hydralazine HCl 15 mg Q6HP PRN IV 09/19/24 12:30 09/19/24 21:26 15 MG Nifedipine 60 mg DAILY PO 09/20/24 10:00 objective No new complaints Wants to go home Alert and oriented x 3 NAD Lungs CTA CV: RR, S4, no rub No leg edema laboratory and microbiology Laboratory Tests 09/19/24 04:55 Test 09/19/24 04:55 Range/Units Serum Glucose 92 74-106 mg/dL Problem List ESRD on HD via Rt arm AVG Improved Metabolic encephalopathy Severe pulmonary hypertension PA pressure of 130 mmHg Severe tricuspid regurgitation HTN, Seizure h/o shingles Anemia of CKD secondary hyperparathyroidism Metabolic acidosis Azotemia Hypothermia Plan: Stable from renal standpoint, had HD yesterday Monitor H&H, Neurology consult On antiseizure meds JOSE M post HD as needed. Hb goal 10-11 g/dl Okay to discharge home from Nephrology perspective Dietary Evaluation Review Comments: 1) Continue to provide assistance at mealtime 2) If feeding tube is in place, TF Nepro carb Steady @ 60ml/hr x 20hr. Water flush 50ml Q6H if allowed. TF @ goal volume provides 2160 kcal (100% energy), 98gm protein (100% protein), 872ml free water. 3) TPN if NPO x 7 days 4) Nephro-Amy 1 tab daily, Ergocalciferol 50,000IU 1 cap weekly 5) Continue current plan of care Expected Outcomes/Goals: To meet at least 75% estimated needs FU 2-3 days Plan discussed with: JEROME Maravilla MD September 20, 2024 08:15
[2024-09-20] MEDS: NIFEdipine ER 30 MG TAB PO SCH (09:30)
[2024-09-20 13:31] LABS: Chloride 99 mmol/L (98-107); Potassium 3.9 mmol/L (3.5-5.1); Sodium 136 mmol/L (136-145)
[2024-09-20 13:32] LABS: Anion Gap 7 (5-15); Carbon Dioxide 30 mmol/L (20-31)
[2024-09-20 13:33] LABS: Calcium 9.8 mg/dL (8.7-10.4); Hematocrit 30.8 % (36.0-46.0); Hemoglobin 10.2 g/dL (12.2-16.2); Mean Corpuscular Hemoglobin 30.1 pg (28.0-32.0); Mean Corpuscular Hgb Conc. 33.1 g/dL (32.0-36.0); Mean Corpuscular Volume 90.7 fL (80.0-100.0); Platelet Count (auto) 127 10^3/uL (140-450); Red Cell Distribution Width 17.6 % (11.8-14.3); White Blood Cell 6.6 10^3/uL (4.4-10.8)
[2024-09-20 13:37] LABS: BUN/Creatinine Ratio 2.3 (10.0-20.0); Band Neutrophils % (manual) 0; Basophils % (manual) 0 (0.0-2.0); Blast Cells 0; Blood Urea Nitrogen 9 mg/dL (9-23); Glucose 97 mg/dL (74-106); Metamyelocytes % 0; Promyelocytes % 0; Reactive Lymphocytes 0
[2024-09-20 14:08] LABS: Eosinophils % (manual) 6 (0-7); Lymphocytes % (manual) 22 (10.0-50.0); Monocytes % (manual) 11 (0-12); Myelocytes % 4; Platelet Estimate Decreased
[2024-09-20] MEDS: METOPROLOL TARTRATE 25 MG TAB PO ONE (15:05)
[2024-09-20] MEDS ORDERED: hydrALAZINE HCL 20 MG/ML VL IV PRN (15:45)
--- NOTE | 2024-09-20 16:13 | DVHPNRES ---
Progress Note Date Seen: September 20, 2024 Resident Creating Document: CAROLEE WOODRUFF RESIDENT Has the PT tested + for MRSA If YES, has PT been informed?: Yes Medical Necessity Reason Pt with a Central, PICC or Fol: No Subjective Review of Systems Ms. Wright is a 68 years old female with a history of hypertension, end-stage renal failure on hemodialysis, seizure disorder, she was brought to the [facility] on 09/11/2024 with a chief complaint of altered mental status. According to her sister, the patient developed visual hallucination where he saw nonexisting objects/creatures on 09/11/2024 and she was take to the [facility] [place]; when she came to see the patient, the patient was mentally fine, she recognized her and was able to maintain a good conversation. According to her sister, the patient's baseline was mentally normal. On 09/09/24, she was seen in the [facility] ER for skin rashes in the left upper extremity, and the patient was said to have shingles, she was prescribed valacyclovir. She has a very long history of seizure disorder, she was spells of event with shaking all over body, her sister does not remember much about her seizure, but she claimed the patient was respond to her during the seizure activity, there was no associated oral trauma. Her sister does not remember how often she has seizures, but last seizure was before 06/2024 when [place] [facility]. Her sister looked at the patient's bottle and confirmed the patient was on Keppra 500 mg b.i.d., the only seizure medication the patient was on. Patient is seen and examined on the bedside. She is alert oriented x 3. Complaints of soreness on the left arm and back pain. Objective vital signs Vital Sign Date Time Temp Pulse Resp B/P (MAP) Pulse Ox O2 Delivery O2 Flow Rate FiO2 09/20/24 15:05 73 166/86 09/20/24 12:30 97.6 17 100 97.6 09/19/24 20:00 Nasal Cannula* 2 28 Total Intake and Output 09/19/24 09/19/24 09/20/24 15:00 23:00 07:00 Intake Total 100 ml 500 ml 850 ml Balance 100 ml 500 ml 850 ml medications Current Medications Medications Dose Ordered Sig/Maru Route Start Time Stop Time Status Last Admin Dose Admin Acetaminophen/ Hydrocodone Bitart 1 tab Q4HP PRN PO 09/11/24 19:45 09/20/24 12:50 1 TAB Docusate Sodium 100 mg BIDPRN PRN PO 09/11/24 19:45 Acetaminophen 650 mg Q6HP PRN PO 09/11/24 19:45 Morphine Sulfate 2 mg Q30M PRN IV 09/11/24 21:15 Lorazepam 1 mg Q2HPRN PRN PO 09/11/24 22:00 Cancel Lorazepam 1 mg Q2HPRN PRN IV 09/11/24 22:00 09/16/24 14:33 1 MG Diagnostic Test (Pha) 1 strip ACHS 09/15/24 17:00 09/20/24 11:30 1 STRIP Dextrose 50 ml UD PRN IV 09/15/24 13:30 Heparin Sodium (Porcine) 5,000 units Q12HR SC 09/15/24 22:00 09/19/24 21:27 5,000 UNITS Ergocalciferol 50,000 unit Q7D PO 09/16/24 09:00 Acyclovir Sodium 0 ml @ 0 mls/hr PER PHARMACY IV 09/16/24 12:00 Acyclovir Sodium 250 mg/Dextrose 55 ml @ 55 mls/hr DAILY IV 09/17/24 10:00 09/20/24 09:29 55 MLS/HR Nifedipine 60 mg DAILY PO 09/20/24 10:00 09/20/24 09:30 60 MG Metoprolol Tartrate 25 mg BID PO 09/20/24 22:00 Pantoprazole Sodium 40 mg DAILY@0600 PO 09/21/24 06:00 UNV Levetiracetam 500 mg BID PO 09/20/24 22:00 UNV Hydralazine HCl 25 mg Q8HR PO 09/20/24 22:00 UNV Hydralazine HCl 10 mg Q6HP PRN IV 09/20/24 15:45 UNV Guaifenesin 200 mg Q6HP PRN PO 09/20/24 16:00 UNV Examination Physical examination: General Appearance: Alert, Oriented X3, Cooperative and on 2 L oxygen through nasal cannula HEENT: Atraumatic, PERRLA, EOMI, Mucous membrane moist/pink Respiratory: bilateral decreased breath sounds and coarse crackles. Cardiovascular: Regular rate, Normal S1, Normal S2, Tricuspid regurgitation murmur present, no chest wall tenderness Abdominal: Distended and flanks are full, Normal bowel sounds, Soft, No tenderness, No hepatospenomegaly, No masses Extremities: No clubbing, No cyanosis, No edema, Normal pulses, No tenderness/swelling Skin: Healed rashes with black eschar on the chest that does not cross the midline, No breakdown, No significant lesion. Neuro: Strength at 5/5 X4 ext, Normal tone, Sensation intact, Cranial nerves 3- 12 NL, Reflexes 2+ Psych/Mental Status: Normal laboratory and microbiology Laboratory Tests 09/20/24 12:50 Test 09/20/24 12:50 Range/Units Serum Glucose 97 74-106 mg/dL Microbiology Date/Time Source Procedure Growth Status 09/16/24 08:52 Nose MRSA Screen - Final Complete 09/15/24 06:32 Blood Blood Culture - Final NO GROWTH AFTER 5 DAYS OF INCUBATION. Complete Labs and/or images reviewed: Labs reviewed by me, Image(s) reviewed by me Problem List/Assessment/Plan Problem List/Assessment/Plan Assessment and plan: NEURO: Acute Metabolic encephalopathy likely due to possible meningitis Recent history of shingles Rule out stroke History of seizure disorder - CT head demonstrated moderate cerebellar atrophy without acute ischemia or hemorrhage - EEG showed moderately abnormal EEG, this EEG seen in moderate cerebral dysfunction due to metabolic/hypoxic encephalopathy or medication effects. - Preliminary blood culture is negative for any growth after 24 hours of incubation - IV Acyclovir 250 mg daily - MRI revealed no acute infarct, intracranial hemorrhage, mass effect, or hydrocephalus. - Keppra 500 mg po b.i.d. - IV Ativan 1 mg q.2h p.r.n. for seizure - Neurology on board CARDIOVASCULAR: Hypertensive emergency Severe pulmonary hypertension Severe tricuspid regurgitation RV overload likely due to severe volume overload and increased left ventricular end-diastolic pressure - CT angio demonstrated cardiomegaly, reflux of contrast the hepatic vein and IVC consistent with right heart dysfunction - Echocardiogram revealed LVEF 55-60% with abnormal septal motion due to RV pressure overload, grade II diastolic dysfunction, severe tricuspid regurgitation, and RVSP at 130 mmHg - Cardiology on board and possible right heart catheterization after patient becomes more alert and oriented. - Nifedipine 60 mg daily, metoprolol tartrate 25 mg b.i.d., hydralazine 25 mg q.8 hours - IV hydralazine 10 mg q.6 p.r.n. PULMONARY: Severe pulmonary hypertension Ruled out pulmonary embolism Bilateral pleural effusion possible Gram-positive/Gram-negative pneumonia - CT angio showed Bilateral pulmonary airspace consolidation and ground-glass disease most pronounced in the lower lobes, likely secondary to combination of infection/ pneumonia or edema GASTROINTESTINAL: Ascites likely due to volume overload rule out chronic liver disease - Ultrasound of the abdomen showed Cholelithiasis without evidence of cholecystitis. Left pleural effusion. Trace ascites in the left upper quadrant and Hepatic steatosis. GENITOURINARY: ESRD on hemodialysis 3 times a week Vitamin D defieciency likely due to chronic renal disease - Patient had few sessions of inpatient dialysis and Nephrology cleared the patient for discharge - Strict I&O - Avoid nephrotoxic medication HEME: Chronic microcytic hypochromic anemia likely due to CKD Thrombocytopenia INFECTIOUS DISEASE: Sepsis likely due to pneumonia Possible Gram-positive/ Gram-negative pneumonia Hepatitis C antibody positive Recent history of shingles Possible viral meningitis -CT angio showed Bilateral pulmonary airspace consolidation and ground-glass disease most pronounced in the lower lobes, likely secondary to combination of infection/ pneumonia or edema - IV meropenem 1 g daily and IV vancomycin as per pharmacy and IV acyclovir 250 mg daily. - COVID ,flu negative and MRSA pending - Preliminary Blood culture is negative for any growth in 24 hours of incubation. 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 GI prophylaxis: Protonix 40 mg po daily Bowel regimen: Code status: full code LINES/DRAINS/ACCESS: IV access: Peripheral line Perdue catheter: DISPOSITION: Telemetry advance care planning- full code- time spent 19 mins Patient's status discussed with RN, sister Case discussed with Dr. Spence Plan discussed with: Patient, Other My Orders My Orders Orders - CAROLEE WOODRUFF RESIDENT Procedure Category Date Status Time Renal DIET 09/20/24 Transmitted Standard(2gna,3gk,Lopho) Lunch Pt Request For Service PT 09/20/24 Logged 10:23 Metoprolol Tartrate PHA 09/20/24 In Process Tablet (Lopressor Ta 22:00 Pantoprazole Tablet PHA 09/21/24 Logged (Protonix Tablet) 06:00 Levetiracetam Tablet PHA 09/20/24 Logged (Keppra Tablet) 22:00 Hydralazine Hcl PHA 09/20/24 Logged Tablet (Apresoline 22:00 Hydralazine Injection PHA 09/20/24 Logged (Apresoline Inject 15:45 Guaifenesin Plain PHA 09/20/24 Logged Liquid (Robitussin Geovany 16:00 Dietary Evaluation Review Comments: 1) Continue to provide assistance at mealtime 2) If feeding tube is in place, TF Nepro carb Steady @ 60ml/hr x 20hr. Water flush 50ml Q6H if allowed. TF @ goal volume provides 2160 kcal (100% energy), 98gm protein (100% protein), 872ml free water. 3) TPN if NPO x 7 days 4) Nephro-Amy 1 tab daily, Ergocalciferol 50,000IU 1 cap weekly 5) Continue current plan of care Expected Outcomes/Goals: To meet at least 75% estimated needs FU 2-3 days Date of Service: September 20, 2024 Billing Provider: BRANDIE SPENCE MD Common Visit Codes: 99261-SSGRIPSGAD INP/OBS CARE(HIGH) Secondary Visit Codes: 98389-[id number] CARE PLAN 30 MINUTES CAROLEE WOODRUFF RESIDENT September 20, 2024 16:13 BRANDIE SPENCE MD September 21, 2024 15:59
[2024-09-20] MEDS: guaiFENesin 200 MG/10 ML UD PO PRN (17:11)
[2024-09-20] MEDS: EPOETIN ALFA-EPBX 10,000 UNIT/1ML VIAL SC ONE (21:00)
[2024-09-20] MEDS: hydrALAZINE HCL 25 MG TAB PO SCH (21:46)
[2024-09-20] MEDS: levETIRAcetam 500 MG TAB PO SCH (21:46)
[2024-09-20] MEDS: METOPROLOL TARTRATE 25 MG TAB PO SCH (21:47)
--- NOTE | 2024-09-20 22:42 | DVHPN2 ---
Progress Note - Dictate Date Seen: September 20, 2024 Has the PT tested + for MRSA If YES, has PT been informed?: Yes Medical Necessity Reason Pt with a Central, PICC or Fol: No Subjective Patient seen and examined at bedside. Remains on supplemental oxygen Overnight events reviewed. vital signs Vital Sign Date Time Temp Pulse Resp B/P (MAP) Pulse Ox O2 Delivery O2 Flow Rate FiO2 09/20/24 21:47 59 156/77 09/20/24 21:00 98.2 20 100 98.2 09/20/24 08:00 Nasal Cannula* 2 28 Total Intake and Output 09/19/24 09/19/24 09/20/24 15:00 23:00 07:00 Intake Total 100 ml 500 ml 850 ml Balance 100 ml 500 ml 850 ml medications Current Medications Medications Dose Ordered Sig/Maru Route Start Time Stop Time Status Last Admin Dose Admin Acetaminophen/ Hydrocodone Bitart 1 tab Q4HP PRN PO 09/11/24 19:45 09/20/24 12:50 1 TAB Docusate Sodium 100 mg BIDPRN PRN PO 09/11/24 19:45 Acetaminophen 650 mg Q6HP PRN PO 09/11/24 19:45 Morphine Sulfate 2 mg Q30M PRN IV 09/11/24 21:15 Lorazepam 1 mg Q2HPRN PRN PO 09/11/24 22:00 Cancel Lorazepam 1 mg Q2HPRN PRN IV 09/11/24 22:00 09/16/24 14:33 1 MG Diagnostic Test (Pha) 1 strip ACHS 09/15/24 17:00 09/20/24 21:46 1 STRIP Dextrose 50 ml UD PRN IV 09/15/24 13:30 Heparin Sodium (Porcine) 5,000 units Q12HR SC 09/15/24 22:00 09/20/24 21:49 5,000 UNITS Ergocalciferol 50,000 unit Q7D PO 09/16/24 09:00 Acyclovir Sodium 0 ml @ 0 mls/hr PER PHARMACY IV 09/16/24 12:00 Acyclovir Sodium 250 mg/Dextrose 55 ml @ 55 mls/hr DAILY IV 09/17/24 10:00 09/20/24 09:29 55 MLS/HR Nifedipine 60 mg DAILY PO 09/20/24 10:00 09/20/24 09:30 60 MG Metoprolol Tartrate 25 mg BID PO 09/20/24 22:00 Pantoprazole Sodium 40 mg DAILY@0600 PO 09/21/24 06:00 Levetiracetam 500 mg BID PO 09/20/24 22:00 09/20/24 21:46 500 MG Hydralazine HCl 25 mg Q8HR PO 09/20/24 22:00 09/20/24 21:46 25 MG Hydralazine HCl 10 mg Q6HP PRN IV 09/20/24 15:45 Guaifenesin 200 mg Q6HP PRN PO 09/20/24 16:00 09/20/24 17:11 200 MG objective Gen.: Patient lying in bed in no apparent distress. On supplemental oxygen. Head: Normocephalic, atraumatic. Eyes: EOMI/PERRLA. Ears: Normal hearing. Normal anatomy. Neck/trachea: Trachea midline, supple. Nose: Normal external anatomy. Mouth: Moist mucous membranes. Chest: Decreased air entry bilaterally. No wheezing or rhonchi. Cardiovascular: Positive S1, positive S2. Regular rate and rhythm. Abdomen: Positive bowel sounds in all 4 quadrants. Soft, non-tender, non- distended. : Deferred. Rectal: Deferred. Skin: Warm, dry. Intact. Extremities: 2+ radial pulses bilaterally. No lower extremity edema. Neuro: Awake, alert, confused. No gross motor or sensory deficits. Cranial nerves II through XII intact. Gait not assessed. laboratory and microbiology Laboratory Tests 09/20/24 12:50 Test 09/20/24 12:50 Range/Units Serum Glucose 97 74-106 mg/dL Assessment/Plan Impression: Acute hypoxic respiratory failure Dependence on supplemental oxygen Acute metabolic encephalopathy End-stage renal disease, on hemodialysis Generalized weakness Pulmonary hypertension, RVSP 120 mmHg GGO on imaging Pleural effusion, left greater than right Atelectasis Mediastinal lymphadenopathy Events: Remains on supplemental oxygen On 2 LPM NC Taper O2 as tolerated Hemodialysis per Nephrology 09/18 - S/p hemodialysis with 3 L removed 09/19 - S/p hemodialysis with 3 L removed Improved mentation after hemodialysis Blood pressure improving, SBP in 150s. Nephrology recs appreciated Plan for right heart catheterization with Dr. Arauz pending neurological status and hemodynamic improvement Blood pressure control per Cardiology Continue antibiotics Continue antiviral Incentive spirometry Accu-Cheks, ISS. Continue antiepileptic - Keppra HOB elevation Aspiration precautions GI prophylaxis - Protonix On puree diet Monitor H&H Monitor platelets Transthoracic echocardiogram revealed LVEF 55-60% with abnormal septal motion due to RV pressure overload, grade II diastolic dysfunction, severe tricuspid regurgitation, and RVSP at 130 mmHg. PE ruled out. Labs and imaging reviewed. Rest of plan as noted below. Plan: Supplemental oxygen Titrate to keep O2 sats above 92%. Head of bed elevation Aspiration precautions Echo report reviewed. Cardiology recommendations appreciated Continue antibiotics Antiviral medication Incentive spirometry HD per Nephrology Follow up Nephrology recommendations Monitor renal function. Monitor electrolytes. Supplement as necessary. Monitor ins and outs. GI prophylaxis - Protonix DVT prophylaxis - heparin SC Prognosis: Poor given patient's multiple co-morbidities. Rest of plan per hospitalist and other consultants. Thank you, Dr. Tripp, for allowing me to participate in this patient's care. Further recommendations will depend on the patient's clinical course. Please do not hesitate to contact me if you have any questions or concerns. This medical document was created using an electronic medical record system with [employer] dictation system. Although these documentations are being carefully reviewed, there may still be some phonetic and typographical changes. The errors are purely typographical, due to imperfection on the software program, and do not reflect any compromise in the patient's medical care. Dietary Evaluation Review Comments: 1) Continue to provide assistance at mealtime 2) If feeding tube is in place, TF Nepro carb Steady @ 60ml/hr x 20hr. Water flush 50ml Q6H if allowed. TF @ goal volume provides 2160 kcal (100% energy), 98gm protein (100% protein), 872ml free water. 3) TPN if NPO x 7 days 4) Nephro-Amy 1 tab daily, Ergocalciferol 50,000IU 1 cap weekly 5) Continue current plan of care Expected Outcomes/Goals: To meet at least 75% estimated needs FU 2-3 days Plan discussed with: Patient, Other (RN August) BIANCA TAM MD September 20, 2024 22:41
--- NOTE | 2024-09-21 00:17 | DVHPN2 ---
Progress Note - Dictate Date Seen: September 20, 2024 Has the PT tested + for MRSA If YES, has PT been informed?: Yes Medical Necessity Reason Pt with a Central, PICC or Fol: No Subjective Ms. Wright is a 68 years old female with a history of hypertension, end-stage renal failure on hemodialysis, seizure disorder, she was brought to the [facility] on 09/11/2024 with a chief complaint of altered mental status. I have seen and examined the patient, I have discussed with her nurse, she is awake, oriented x4, he can maintain good conversation Phenytoin, 09/13/2024: 4.9 ABG, 09/12/2024: CO2 retention WBC/HB/PLT/MCV, 09/12/2024: 4/9.9/160/86.7 BUN/CR, 09/12/2024: 28/6.37 TBI/AST/ALT/AP, 09/12/2024: 0.6/67/30/143 TSH, 09/13/2024: 2.01 EEG, 09/14/24: A moderately abnormal EEG Chest x-ray, 09/11/2024: 1. Moderately severe cardiomegaly 2. Moderate bilateral interstitial changes CT head, 09/12/2024: 1. No acute intracranial hemorrhage 2. No CT findings of territorial ischemia MRI head, 09/19/2024: No acute infarct, intracranial hemorrhage, mass effect, or hydrocephalus. vital signs Vital Sign Date Time Temp Pulse Resp B/P (MAP) Pulse Ox O2 Delivery O2 Flow Rate FiO2 09/20/24 21:47 59 156/77 09/20/24 21:00 98.2 20 100 98.2 09/20/24 20:00 Nasal Cannula* 2 28 Total Intake and Output 09/20/24 09/20/24 09/21/24 15:00 23:00 07:00 Intake Total 754 ml Balance 754 ml medications Current Medications Medications Dose Ordered Sig/Maru Route Start Time Stop Time Status Last Admin Dose Admin Docusate Sodium 100 mg BIDPRN PRN PO 09/11/24 19:45 Acetaminophen 650 mg Q6HP PRN PO 09/11/24 19:45 Lorazepam 1 mg Q2HPRN PRN PO 09/11/24 22:00 Cancel Lorazepam 1 mg Q2HPRN PRN IV 09/11/24 22:00 09/16/24 14:33 1 MG Diagnostic Test (Pha) 1 strip ACHS 09/15/24 17:00 09/20/24 21:46 1 STRIP Dextrose 50 ml UD PRN IV 09/15/24 13:30 Heparin Sodium (Porcine) 5,000 units Q12HR SC 09/15/24 22:00 09/20/24 21:49 5,000 UNITS Ergocalciferol 50,000 unit Q7D PO 09/16/24 09:00 Acyclovir Sodium 0 ml @ 0 mls/hr PER PHARMACY IV 09/16/24 12:00 Acyclovir Sodium 250 mg/Dextrose 55 ml @ 55 mls/hr DAILY IV 09/17/24 10:00 09/20/24 09:29 55 MLS/HR Nifedipine 60 mg DAILY PO 09/20/24 10:00 09/20/24 09:30 60 MG Metoprolol Tartrate 25 mg BID PO 09/20/24 22:00 Pantoprazole Sodium 40 mg DAILY@0600 PO 09/21/24 06:00 Levetiracetam 500 mg BID PO 09/20/24 22:00 09/20/24 21:46 500 MG Hydralazine HCl 25 mg Q8HR PO 09/20/24 22:00 09/20/24 21:46 25 MG Hydralazine HCl 10 mg Q6HP PRN IV 09/20/24 15:45 Guaifenesin 200 mg Q6HP PRN PO 09/20/24 16:00 09/20/24 23:43 200 MG objective General: the patient is well developed and nourished. No acute distress. MENTAL STATUS: Subjective SPEECH, LANGUAGE, HIGHER CORTICAL FUNCTION: No aphasia or dysarthria CRANIAL NERVES: Pupils are equal, round and reactive. EOMs full and conjugate. Facial sensation ok in all three divisions bilaterally. Mandibular strength intact. Facial muscles symmetrical and strength intact. SENSATION: Sensation to touch and pinprick is fine MOTOR: Normal tone in the upper and lower extremity. Normal muscle bulk. No fasciculations. No abnormal movements or posturing. She moves the arms REFLEXES: Deep tendon reflexes are symmetrical. No pathological reflexes. CEREBELLAR/COORDINATION: Deferred GAIT/STATION: deferred. laboratory and microbiology Laboratory Tests 09/20/24 12:50 Test 09/20/24 12:50 Range/Units Serum Glucose 97 74-106 mg/dL Problem List Altered mental status, visual hallucination Metabolic encephalopathy Other acute central nervous system disorder, encephalitis, stroke, seizure, less likely Recent shingles History of seizure with atypical feature Assessment/Plan Monitoring Supportive treatment Telemetry Urinalysis Urine drug screening Keppra 500 mg IV b.i.d. Ativan for seizure breakthrough Up to chair Physical therapy More recommendation per clinical course This medical document was created using an electronic medical record system with [employer] dictation system. Although this document has been carefully reviewed, there may still be some phonetic and typographical errors. These areas are purely typographical due to imperfections of the software programs, and do not reflect any compromise in the patient's medical care. Prognosis poor Dietary Evaluation Review Comments: 1) Continue to provide assistance at mealtime 2) If feeding tube is in place, TF Nepro carb Steady @ 60ml/hr x 20hr. Water flush 50ml Q6H if allowed. TF @ goal volume provides 2160 kcal (100% energy), 98gm protein (100% protein), 872ml free water. 3) TPN if NPO x 7 days 4) Nephro-Amy 1 tab daily, Ergocalciferol 50,000IU 1 cap weekly 5) Continue current plan of care Expected Outcomes/Goals: To meet at least 75% estimated needs FU 2-3 days Plan discussed with: Patient, Other KIT GRISSOM MD September 21, 2024 00:17
[2024-09-21 01:00] VITALS: BP 162/86; PULSE 67; RESP 20; TEMP 97.6; O2SAT 100
[2024-09-21 05:00] VITALS: BP 149/79; PULSE 66; RESP 20; TEMP 98.7; O2SAT 98
[2024-09-21] MEDS: PANTOPRAZOLE 40 MG TAB PO SCH (05:43)
[2024-09-21 07:37] LABS: Anion Gap 8 (5-15); Calcium 9.5 mg/dL (8.7-10.4); Carbon Dioxide 27 mmol/L (20-31); Chloride 99 mmol/L (98-107); Potassium 4.1 mmol/L (3.5-5.1)
[2024-09-21 07:43] LABS: BUN/Creatinine Ratio 2.6 (10.0-20.0); Blood Urea Nitrogen 13 mg/dL (9-23)
[2024-09-21 07:44] LABS: Glucose 68 mg/dL (74-106); Sodium 134 mmol/L (136-145)
[2024-09-21 08:00] VITALS: PULSE 69; PULSE 71; RESP 16; O2SAT 100
[2024-09-21 09:00] VITALS: BP 155/74; PULSE 69; RESP 16; TEMP 98.4; O2SAT 100
--- NOTE | 2024-09-21 09:00 | DVHPN2 ---
Consult Progress Note Date Seen: September 21, 2024 Subjective Review of Systems: CVS:Normal, RESPIRATORY:Normal, NEURO:Normal Objective vital signs Vital Sign Date Time Temp Pulse Resp B/P (MAP) Pulse Ox O2 Delivery O2 Flow Rate FiO2 09/21/24 05:43 146/79 09/21/24 05:00 98.7 66 20 98 98.7 09/20/24 20:00 Nasal Cannula* 2 28 Total Intake and Output 09/20/24 09/20/24 09/21/24 15:00 23:00 07:00 Intake Total 754 ml 500 ml Balance 754 ml 500 ml medications Current Medications Medications Dose Ordered Sig/Maru Route Start Time Stop Time Status Last Admin Dose Admin Docusate Sodium 100 mg BIDPRN PRN PO 09/11/24 19:45 Acetaminophen 650 mg Q6HP PRN PO 09/11/24 19:45 Lorazepam 1 mg Q2HPRN PRN PO 09/11/24 22:00 Cancel Lorazepam 1 mg Q2HPRN PRN IV 09/11/24 22:00 09/16/24 14:33 1 MG Diagnostic Test (Pha) 1 strip ACHS 09/15/24 17:00 09/21/24 05:46 1 STRIP Dextrose 50 ml UD PRN IV 09/15/24 13:30 Heparin Sodium (Porcine) 5,000 units Q12HR SC 09/15/24 22:00 09/20/24 21:49 5,000 UNITS Ergocalciferol 50,000 unit Q7D PO 09/16/24 09:00 Acyclovir Sodium 0 ml @ 0 mls/hr PER PHARMACY IV 09/16/24 12:00 Acyclovir Sodium 250 mg/Dextrose 55 ml @ 55 mls/hr DAILY IV 09/17/24 10:00 09/20/24 09:29 55 MLS/HR Nifedipine 60 mg DAILY PO 09/20/24 10:00 09/20/24 09:30 60 MG Metoprolol Tartrate 25 mg BID PO 09/20/24 22:00 Pantoprazole Sodium 40 mg DAILY@0600 PO 09/21/24 06:00 09/21/24 05:43 40 MG Levetiracetam 500 mg BID PO 09/20/24 22:00 09/20/24 21:46 500 MG Hydralazine HCl 25 mg Q8HR PO 09/20/24 22:00 09/21/24 05:43 25 MG Hydralazine HCl 10 mg Q6HP PRN IV 09/20/24 15:45 Guaifenesin 200 mg Q6HP PRN PO 09/20/24 16:00 09/20/24 23:43 200 MG Examination: LUNGS:Abnormal (O2 via NC), CVS:Normal (NSR), NEURO:Normal (A&O x 3) laboratory and microbiology Laboratory Tests 09/21/24 05:20 Test 09/21/24 05:20 Range/Units Serum Glucose 68 L 74-106 mg/dL Problem List/Assessment/Plan Problem List/Assessment/Plan Critical pulmonary hypertension, PE ruled out Hypertensive emergency Acute metabolic encephalopathy Possible sepsis with PNA Hx of seizure activity Anemia in chronic disease ESRD on HD Obesity Plan/Recommendation (Dr. Arauz) Transthoracic echocardiogram revealed LVEF 55-60% with abnormal septal motion due to RV pressure overload, grade II diastolic dysfunction, severe tricuspid regurgitation, and RVSP at 130 mmHg. Pulmonology team consulted with recommendations for initiation of Sildenafil therapy. Recommendations are for an eventual right cardiac catheterization. Spoke with primary care team with plan for possible discharge. Scheduled for a follow-up in the outpatient setting with Dr. Fox on 10/05/2024 at 1300. Information and appointment reminder provided to patient. Kindly call if in need to re-consult. Thank you for allowing us to participate in this patient's care. This medical document was created using an electronic medical record system with voice recognition software and computerized dictation system. Although this document has been carefully reviewed, there might still be some phonetic and typographical errors. Occasional wrong-word or ``sound-alike�� substitutions may have occurred due to the inherent limitations of voice recognition software. These areas are purely typographical due to imperfections of the software programs and do not reflect any compromise in the patient's medical care. Please read the chart carefully and recognize, using context, where these substitutions have occurred. Plan discussed with: Patient, Other Dietary Evaluation Review Comments: 1) Continue to provide assistance at mealtime 2) If feeding tube is in place, TF Nepro carb Steady @ 60ml/hr x 20hr. Water flush 50ml Q6H if allowed. TF @ goal volume provides 2160 kcal (100% energy), 98gm protein (100% protein), 872ml free water. 3) TPN if NPO x 7 days 4) Nephro-Amy 1 tab daily, Ergocalciferol 50,000IU 1 cap weekly 5) Continue current plan of care Expected Outcomes/Goals: To meet at least 75% estimated needs FU 2-3 days Date of Service: September 21, 2024 Billing Provider: LUZ ELENA FARLEY Cardiology Common Codes: [id number] HOSP CARE(High LUZ ELENA FARLEY September 21, 2024 09:00
[2024-09-21] MEDS ORDERED: KEP500T PO (10:35)
[2024-09-21] MEDS ORDERED: HYDR25TA87 PO (10:35)
[2024-09-21] MEDS ORDERED: NIFE1TAB30 PO (10:35)
[2024-09-21] MEDS ORDERED: ERGO1CAP23 PO (10:35)
--- NOTE | 2024-09-21 10:36 | DVHPN2 ---
Progress Note - Dictate Date Seen: September 21, 2024 Has the PT tested + for MRSA If YES, has PT been informed?: Yes Medical Necessity Reason Pt with a Central, PICC or Fol: No Subjective Feels better vital signs Vital Sign Date Time Temp Pulse Resp B/P (MAP) Pulse Ox O2 Delivery O2 Flow Rate FiO2 09/21/24 09:30 155/74 09/21/24 09:29 69 09/21/24 09:00 98.4 16 100 98.4 09/21/24 08:00 Nasal Cannula* 2 28 Total Intake and Output 09/20/24 09/20/24 09/21/24 15:00 23:00 07:00 Intake Total 754 ml 500 ml Balance 754 ml 500 ml medications Current Medications Medications Dose Ordered Sig/Maru Route Start Time Stop Time Status Last Admin Dose Admin Docusate Sodium 100 mg BIDPRN PRN PO 09/11/24 19:45 Acetaminophen 650 mg Q6HP PRN PO 09/11/24 19:45 Lorazepam 1 mg Q2HPRN PRN PO 09/11/24 22:00 Cancel Lorazepam 1 mg Q2HPRN PRN IV 09/11/24 22:00 09/16/24 14:33 1 MG Diagnostic Test (Pha) 1 strip ACHS 09/15/24 17:00 09/21/24 05:46 1 STRIP Dextrose 50 ml UD PRN IV 09/15/24 13:30 Heparin Sodium (Porcine) 5,000 units Q12HR SC 09/15/24 22:00 09/21/24 09:31 5,000 UNITS Ergocalciferol 50,000 unit Q7D PO 09/16/24 09:00 Acyclovir Sodium 0 ml @ 0 mls/hr PER PHARMACY IV 09/16/24 12:00 Acyclovir Sodium 250 mg/Dextrose 55 ml @ 55 mls/hr DAILY IV 09/17/24 10:00 09/21/24 09:30 55 MLS/HR Nifedipine 60 mg DAILY PO 09/20/24 10:00 09/21/24 09:30 60 MG Metoprolol Tartrate 25 mg BID PO 09/20/24 22:00 09/21/24 09:29 25 MG Pantoprazole Sodium 40 mg DAILY@0600 PO 09/21/24 06:00 5/13/25 05:43 40 MG Levetiracetam 500 mg BID PO 09/20/24 22:00 09/21/24 09:29 500 MG Hydralazine HCl 25 mg Q8HR PO 09/20/24 22:00 09/21/24 05:43 25 MG Hydralazine HCl 10 mg Q6HP PRN IV 09/20/24 15:45 Guaifenesin 200 mg Q6HP PRN PO 09/20/24 16:00 09/20/24 23:43 200 MG objective No new complaints Wants to go home Alert and oriented x 3 NAD Lungs CTA CV: RR, S4, no rub No leg edema laboratory and microbiology Laboratory Tests 09/21/24 05:20 Test 09/21/24 05:20 Range/Units Serum Glucose 68 L 74-106 mg/dL Problem List ESRD on HD via Rt arm AVG Improved Metabolic encephalopathy Severe pulmonary hypertension PA pressure of 130 mmHg Severe tricuspid regurgitation HTN, Seizure h/o shingles Anemia of CKD secondary hyperparathyroidism Metabolic acidosis Azotemia Hypothermia Plan: Stable from renal standpoint, had HD yesterday Monitor H&H, Neurology consult On antiseizure meds JOSE M post HD as needed. Hb goal 10-11 g/dl She wants to gom home RUY Okay to discharge home from Nephrology perspective Dietary Evaluation Review Comments: 1) Continue to provide assistance at mealtime 2) If feeding tube is in place, TF Nepro carb Steady @ 60ml/hr x 20hr. Water flush 50ml Q6H if allowed. TF @ goal volume provides 2160 kcal (100% energy), 98gm protein (100% protein), 872ml free water. 3) TPN if NPO x 7 days 4) Nephro-Amy 1 tab daily, Ergocalciferol 50,000IU 1 cap weekly 5) Continue current plan of care Expected Outcomes/Goals: To meet at least 75% estimated needs FU 2-3 days Plan discussed with: Patient, Other JEROME MAN MD September 21, 2024 10:36
[2024-09-21 10:49] LABS: Hematocrit 31.2 % (36.0-46.0); Hemoglobin 10.2 g/dL (12.2-16.2); Mean Corpuscular Hemoglobin 30.3 pg (28.0-32.0); Mean Corpuscular Hgb Conc. 32.6 g/dL (32.0-36.0); Mean Corpuscular Volume 92.9 fL (80.0-100.0); Platelet Count (auto) 136 10^3/uL (140-450); Red Blood Cells 3.36 10^6/uL (4.0-5.20); Red Cell Distribution Width 19.7 % (11.8-14.3); White Blood Cell 7.3 10^3/uL (4.4-10.8)
[2024-09-21 11:04] LABS: Band Neutrophils % (manual) 0; Basophils % (manual) 0 (0.0-2.0); Blast Cells 0; Metamyelocytes % 0; Promyelocytes % 0; Reactive Lymphocytes 0
[2024-09-21 11:18] LABS: Anisocytosis Slight; Eosinophils % (manual) 5 (0-7); Lymphocytes % (manual) 23 (10.0-50.0); Monocytes % (manual) 13 (0-12); Myelocytes % 2; Platelet Estimate Decreased
[2024-09-21] MEDS ORDERED: VALA1TAB PO (11:31)
[2024-09-21 12:35] VITALS: BP 151/72; PULSE 59; RESP 16; TEMP 97.9; O2SAT 97
--- NOTE | 2024-09-21 12:51 | DVHDSRES ---
Discharge Summary Date of Admission Resident Creating Document: CAROLEE WOODRUFF RESIDENT September 11, 2024 at 21:14 Date of Discharge: September 21, 2024 Admitting Diagnosis Acute metabolic encephalopathy Wounds: No open wound was present. Labs/Diagnostic Data: Laboratory Results Test 09/21/24 10:20 09/21/24 05:27 09/21/24 05:20 09/20/24 12:50 White Blood Count 7.3 10^3/uL (4.4-10.8) Red Blood Count 3.36 10^6/uL (4.0-5.20) Hemoglobin 10.2 g/dL (12.2-16.2) Hematocrit 31.2 % (36.0-46.0) Mean Corpuscular Volume 92.9 fL (80.0-100.0) Mean Corpuscular Hemoglobin 30.3 pg (28.0-32.0) Mean Corpuscular Hemoglobin Concent 32.6 g/dL (32.0-36.0) Red Cell Distribution Width 19.7 % (11.8-14.3) Platelet Count 136 10^3/uL (140-450) Mean Platelet Volume 9.0 fL (6.9-10.8) Neutrophils (%) (Auto) % (37.0-80.0) Lymphocytes (%) (Auto) % (10.0-50.0) Monocytes (%) (Auto) % (0.0-12.0) Basophils (%) (Auto) % (0.0-2.0) Neutrophils # (Auto) 10 ^3/uL (1.6-8.6) Lymphocytes # (Auto) 10 ^3/uL (0.4-5.4) Monocytes # (Auto) 10 ^3/uL (0-1.3) Differential Total Cells Counted 100.0 (100) Neutrophils % (Manual) 57 (37.0-80.0) Band Neutrophils % (Manual) 0 Lymphocytes % (Manual) 23 (10.0-50.0) Monocytes % (Manual) 13 (0-12) Eosinophils % (Manual) 5 (0-7) Basophils % (Manual) 0 (0.0-2.0) Metamyelocytes % (manual) 0 Myelocytes % (Manual) 2 Promyelocytes % (Manual) 0 Blast Cells % (Manual) 0 Reactive Lymphocytes 0 Platelet Estimate Decreased Anisocytosis (manual) Slight Schistocytes Few POC Glucose 79 mg/dl (70-106) Sodium Level 134 mmol/L (136-145) Potassium Level 4.1 mmol/L (3.5-5.1) Chloride Level 99 mmol/L (98-107) Carbon Dioxide Level 27 mmol/L (20-31) Anion Gap 8 (5-15) Blood Urea Nitrogen 13 mg/dL (9-23) Creatinine 5.08 mg/dL (0.550-1.02) Glomerular Filtration Rate Calc 9 mL/min (>90) BUN/Creatinine Ratio 2.6 (10.0-20.0) Serum Glucose 68 mg/dL (74-106) Calcium Level 9.5 mg/dL (8.7-10.4) Random Vancomycin Level 20.0 ug/mL (5-10) Test 09/19/24 04:55 09/17/24 09:57 09/16/24 04:21 09/15/24 13:53 Nucleated Red Blood Cells % Total Bilirubin 0.6 mg/dL (0.2-1.0) Aspartate Amino Transferase (AST) 35 U/L (13-40) Alanine Aminotransferase (ALT) 17 U/L (7-40) Alkaline Phosphatase 107 U/L (46-116) Total Protein 7.4 g/dL (5.7-8.2) Albumin 3.3 g/dL (3.2-4.8) Iron Level 94 ug/dL (50-170) Total Iron Binding Capacity 175 ug/dL (250-425) Percent Iron Saturation 53.7 % (15-50) Ferritin 1437.2 ng/mL (10-291) Blood Gas Specimen Type Arterial Blood Gas Sample Site Right radial Blood Gas Patient Temperature 37.0 Arterial Blood Date Drawn [id number] Arterial Blood pH 7.426 (7.350-7.450) Arterial Blood Partial Pressure CO2 38.4 mmHg (32.0-45.0) Arterial Blood Partial Pressure O2 91.7 mmHg (83.0-108.0) Arterial Blood HCO3 24.7 mmol/L (21.0-28.0) Arterial Blood Oxygen Saturation 96.9 % (94.0-98.0) Arterial Blood Base Excess 0.3 mmol/L (-2.0-3.0) Arterial Blood Oxyhemoglobin 96.2 % (94.0-98.0) Arterial Blood Carboxyhemoglobin 0.3 % (0.5-1.5) Arterial Blood Methemoglobin 0.4 % (0.0-1.5) Hipolito Test Modified Blood Gas Total Hemoglobin 8.10 g/dL (12.0-16.0) Blood Gas Liter Flow 7.00 Blood Gas Modality Mask - simple FiO2 % 48.0 Hepatitis A IgM Antibody Negative Hepatitis B Surface Antigen Negative (Negative) Hepatitis B Core IgM Antibody Negative (Negative) Hepatitis C Antibody Positive (Negative) Test 09/15/24 13:06 09/15/24 06:30 09/15/24 06:23 09/13/24 08:37 Blood Gas Critical Value Read Back Yes Blood Gas Notified Whom Elvis goodson. Blood Gas Notified Time [id number] Blood Gas Notified By Lina jones Eosinophils (%) (Auto) 1.7 % (0.0-7.0) Eosinophils # (Auto) 0.2 10 ^3/uL (0-0.8) Basophils # (Auto) 0.1 10 ^3/uL (0-0.2) Prothrombin Time 11.5 sec (9.3-11.8) Prothrombin Time INR 1.09 (0.9-1.15) Activated Partial Thromboplast Time 32.8 SEC (24.5-34.5) Hemoglobin A1c 4.5 % A1C (<5.7) Lactic Acid Level 0.9 mmol/L (0.4-2.0) Phosphorus Level 3.9 mg/dL (2.4-5.1) Magnesium Level 2.1 mg/dL (1.6-2.6) Ammonia 16 umol/L (11-32) Triglycerides Level 63 mg/dL (< 150) Cholesterol Level 89 mg/dL (< 200) LDL Cholesterol 31 mg/dL (< 100) HDL Cholesterol 36 mg/dL (40-59) Vitamin B12 Level 2175 pg/mL (211-911) Vitamin D 25-Hydroxy 13.0 ng/mL (30.0-100) Thyroid Stimulating Hormone (TSH) 1.33 uIU/mL (0.55-4.78) Influenza Type A Antigen Negative (Negative) Influenza Type B Antigen Negative (Negative) SARS-CoV-2 Antigen (Rapid) Negative (NEGATIVE) Phenytoin (Dilantin) Level 4.9 ug/mL (10-20) Test 09/11/24 18:26 Troponin I High Sensitivity 24 ng/L (</=34) Other Laboratory Tests 09/21/24 10:20 09/21/24 05:20 Brief Hx & Hospital Course: Ms. Wright is a 68 years old female with a history of hypertension, end-stage renal failure on hemodialysis, seizure disorder, she was brought to the [facility] on 09/11/2024 with a chief complaint of altered mental status. According to her sister, the patient developed visual hallucination where he saw nonexisting objects/creatures on 09/11/2024 and she was take to the [facility]; when she came to see the patient, the patient was mentally fine, she recognized her and was able to maintain a good conversation. According to her sister, the patient's baseline was mentally normal. On 09/09/24, she was seen in the [facility] ER for skin rashes in the left upper extremity, and the patient was said to have shingles, she was prescribed valacyclovir. She has a very long history of seizure disorder, she was spells of event with shaking all over body, her sister does not remember much about her seizure, but she claimed the patient was respond to her during the seizure activity, there was no associated oral trauma. Her sister does not remember how often she has seizures, but last seizure was before 06/2024 when she relocated from the [place] to the [facility]. Her sister looked at the patient's bottle and confirmed the patient was on Keppra 500 mg b.i.d., the only seizure medication the patient was on. Hospital course: Initially patient was presented with acute metabolic encephalopathy with hypertensive urgency. CT head demonstrated moderate cerebellar atrophy without acute ischemia or hemorrhage. MRI showed No acute infarct, intracranial hemorrhage, mass effect, or hydrocephalus. Neurology on board and EEG showed moderately abnormal EEG, this EEG seen in moderate cerebral dysfunction due to metabolic /hypoxic encephalopathy or medication effects. Patient has a history of seizure disorder and we started IV Keppra 500 mg b.i.d. Patient was also septic and was started IV acyclovir 250 mg daily, IV vancomycin as per pharmacy and IV meropenem 1 g daily. Next day patient became more arousable and transferred the patient to telemetry. For hypertensive emergency the patient was initially started with IV nicardipine drip, IV hydralazine 15 mg q.6 hours, clonidine patch 0.2 mg and later when patient become more alert and oriented we started p.o. antihypertensive with nifedipine 60 mg p.o. daily, hydralazine 25 mg Q 8 hours, metoprolol tartrate 25 mg b.i.d. History of ESRD on hemodialysis 3 times a week and we resumed hemodialysis in inpatient and patient had few sessions of dialysis in the hospital. Echocardiogram revealed LVEF 55-60% with abnormal septal motion due to RV pressure overload, grade II diastolic dysfunction, severe tricuspid regurgitation, and RVSP at 130 mmHg. For critical Pulmonary hypertension CT angio was done and ruled out PE . Cardiology evaluated the patient and recommended right heart catheterization in outpatient. Discharge plan was discussed with the patient and all questions answered. Patient is being discharged to home with valacyclovir 500 mg b.i.d. for 16 days, hydralazine 25 mg Q 8 hours, nifedipine 60 mg p.o. daily, ergocalciferol 82994 units Q 7D for 10 weeks Keppra 500 mg b.i.d. and advised the patient to continue Dilantin 100 mg p.o. daily. Patient was also advised to follow up with PCP in 1 week, cardiology 1-2 weeks and Nephrology in 1 week. Physical examination: General Appearance: Alert, Oriented X3, Cooperative and on 2 L oxygen through nasal cannula HEENT: Atraumatic, PERRLA, EOMI, Mucous membrane moist/pink Respiratory: bilateral decreased breath sounds and coarse crackles. Cardiovascular: Regular rate, Normal S1, Normal S2, Tricuspid regurgitation murmur present, no chest wall tenderness Abdominal: Distended and flanks are full, Normal bowel sounds, Soft, No tenderness, No hepatospenomegaly, No masses Extremities: No clubbing, No cyanosis, No edema, Normal pulses, No tenderness/swelling Skin: Healed rashes with black eschar on the chest that does not cross the midline, No breakdown, No significant lesion. Neuro: Strength at 5/5 X4 ext, Normal tone, Sensation intact, Cranial nerves 3- 12 NL, Reflexes 2+ Psych/Mental Status: Normal Time spent in discharge planning was 41 mins Consults/Reason for consult Cardiology and nephrology were consulted Operations or Procedures EXAM: CT HEAD WITHOUT CONTRAST INDICATION: altered COMPARISON: None FINDINGS: Moderate cerebellar atrophy relative to the supratentorial structures. Findings may be related to Dilantin, alcohol or other etiologies. There is no evidence of acute intracranial hemorrhage, extra-axial collection, mass effect, midline shift, herniation or hydrocephalus. The ventricles, sulci and cisterns are age appropriate. The perez-white differentiation is intact. Patchy periventricular and subcortical white matter hypoattenuation is nonspecific but may be related to small vessel ischemic disease. The visualized paranasal sinuses and mastoid air cells are clear. The surrounding soft tissues and osseous structures are unremarkable. IMPRESSION: 1. Moderate cerebellar atrophy. Indication: Critica pulmonary HTN rule out PE Technique: CT axial images of the chest are obtained with intravenous contrast per CT angiogram protocol. Coronal and sagittal reformats were obtained. Radiation Dose Information: CTDI volume is 29.6 mGy. Dose-length product is 331.8 mGy*cm Comparison: None FINDINGS: No large defect within the main left right pulmonary arteries. Segmental and subsegmental branches do not demonstrate definitive defect. Trachea patent. No pneumothorax. Bilateral pulmonary airspace consolidation and ground-glass disease, most pronounced in the lower lobes. Pulmonary emphysematous changes. Interlobular septal thickening. Mild bilateral bronchiectatic changes. Small bilateral pleural effusions, [id number]. Subcarinal lymph node measuring 2.5 cm. Pretracheal lymph node measuring 1.8 cm. Cardiomegaly. Aortic atherosclerotic disease. No supraclavicular or axillary lymphadenopathy. Reflux of contrast in the hepatic veins and IVC. Small amount of perihepatic ascites fluid. There are bilateral are hemodialysis av fistula /grafts. Diffuse osseous sclerosis IMPRESSION: 1. No evidence for large pulmonary embolism. 2. Bilateral pulmonary airspace consolidation and ground-glass disease most pronounced in the lower lobes, likely secondary to combination of infection/ pneumonia or edema. Follow-up to resolution. 3. Small bilateral pleural effusions, [id number]. 4. Mediastinal lymphadenopathy. 5. Cardiomegaly. Reflux of contrast the hepatic veins and IVC consistent with right heart dysfunction.Soft tissue 6. Edema and anasarca. 7. Diffuse osseous sclerosis, likely secondary to renal osteodystrophy. Other considerations include other metabolic bone processes, osteoblastic metastases. 8. Upper abdominal ascites fluid. INDICATION: rule out liver pathology FINDINGS: Liver is heterogeneous in echogenicity. The liver measures 15.1 cm. No intrahepatic biliary ductal dilatation is noted. The gallbladder wall measures 0.2 cm and is unremarkable. Multiple gallstones are seen. No pericholecystic fluid or edema. The common duct measures 0.3 cm and is unremarkable. The right kidney measures 5.6 cm. No hydronephrosis. The left kidney measures 7.2 cm. No hydronephrosis. Right renal cyst measures up to 1.4 cm. Left pleural effusion is seen. Trace ascites seen in the left upper quadrant. The pancreas is not well visualized due to obscuration from bowel gas. The visualized portions of the IVC and aorta are grossly unremarkable. IMPRESSION: 1. Cholelithiasis without evidence of cholecystitis. 2. Left pleural effusion. 3. Trace ascites in the left upper quadrant 4. Hepatic steatosis. EXAMINATION: MRI BRAIN HEAD WO CONTRAST INDICATION: Sz, acute encephalopathy COMPARISON: None FINDINGS: No evidence of acute or remote infarct. No intracranial hemorrhage. No mass effect. There is periventricular/deep white matter T2/FLAIR hyperintensity is nonspecific, but most commonly associated with chronic microvascular disease. The ventricles and sulci are normal in size for age. Clear basal cisterns. Flow voids in the major intracranial vessels are maintained. No abnormality of the orbits. Paranasal sinuses and mastoid air cells are clear. No abnormality of the visualized osseous structures and extracranial soft tissues. IMPRESSION: No acute infarct, intracranial hemorrhage, mass effect, or hydrocephalus. EXAM: XY CHEST PORTABLE REASON FOR EXAM: Pulmonary edema FINDINGS/IMPRESSION: LUNGS: Similar imaging appearance interstitial markings with small bilateral pleural effusions central pulmonary vascular congestion. Volume overload. MEDIASTINUM: [id number] cardiomegaly appearing BONES: No acute osseous abnormality OTHER: Status post removal of the enteric tube. Right axillary endovascular stent placement. Condition at Discharge: Guarded Final Diagnosis/Problems List Acute Metabolic encephalopathy likely due to possible encephalitis Hypertensive emergency Severe pulmonary hypertension Severe tricuspid regurgitation RV overload likely due to severe volume overload and increased left ventricular end-diastolic pressure Ruled out pulmonary embolism Bilateral pleural effusion possible Gram-positive/Gram-negative pneumonia Sepsis likely due to pneumonia ESRD on hemodialysis 3 times a week Vitamin D defieciency likely due to chronic renal disease Chronic microcytic hypochromic anemia likely due to CKD Thrombocytopenia Diffuse osseous sclerosis, likely secondary to renal osteodystrophy Discharge Disposition: Home Discharge Instruct/Medications Diet: Cardiac 2g Na,low cholest, Renal Activity: No Restrictions, As Tolerated Follow Up/Referral: PCP in 1 week Nephrology in 1 week Medications: As per EMR Discharge Statement: "Patient was advised to return to the ER or call 911 if any headaches, dizziness, shortness of breath, chest pain, abdominal pain, bleeding, fevers, or worsening of medical condition. Patient was counseled about treatment plan, medications, possible side effects, patient�verbalized understanding. All questions were answered to the best of my ability. This discharge took greater then 30 minutes in planning, reviewing documentation, counseling the patient, and discussing with other team members." ASSESSMENT ASSESSMENT Assessment Acute Metabolic encephalopathy likely due to possible encephalitis CAROLEE WOODRUFF RESIDENT September 21, 2024 12:51
[2024-09-21] MEDS ORDERED: VALA500T33 PO (16:06)
[2024-09-21 16:38] VITALS: BP 123/93; PULSE 66; RESP 16; TEMP 97.6; O2SAT 100
--- NOTE | 2024-09-21 21:16 | DVHPN2 ---
Progress Note - Dictate Date Seen: September 21, 2024 Has the PT tested + for MRSA If YES, has PT been informed?: Yes Medical Necessity Reason Pt with a Central, PICC or Fol: No Subjective Patient seen and examined at bedside. Remains on supplemental oxygen Overnight events reviewed. vital signs Vital Sign Date Time Temp Pulse Resp B/P (MAP) Pulse Ox O2 Delivery O2 Flow Rate FiO2 09/21/24 16:38 97.6 66 16 123/93 (103) 100 97.6 09/21/24 08:00 Nasal Cannula* 2 28 Total Intake and Output 09/20/24 09/20/24 09/21/24 15:00 23:00 07:00 Intake Total 754 ml 500 ml Balance 754 ml 500 ml medications Current Medications Medications Dose Ordered Sig/Maru Route Start Time Stop Time Status Last Admin Dose Admin Lorazepam 1 mg Q2HPRN PRN PO 09/11/24 22:00 Cancel objective Gen.: Patient lying in bed in no apparent distress. On supplemental oxygen. Head: Normocephalic, atraumatic. Eyes: EOMI/PERRLA. Ears: Normal hearing. Normal anatomy. Neck/trachea: Trachea midline, supple. Nose: Normal external anatomy. Mouth: Moist mucous membranes. Chest: Decreased air entry bilaterally. No wheezing or rhonchi. Cardiovascular: Positive S1, positive S2. Regular rate and rhythm. Abdomen: Positive bowel sounds in all 4 quadrants. Soft, non-tender, non- distended. : Deferred. Rectal: Deferred. Skin: Warm, dry. Intact. Extremities: 2+ radial pulses bilaterally. No lower extremity edema. Neuro: Awake, alert, confused. No gross motor or sensory deficits. Cranial nerves II through XII intact. Gait not assessed. laboratory and microbiology Laboratory Tests 09/21/24 10:20 09/21/24 05:20 Test 09/21/24 05:20 Range/Units Serum Glucose 68 L 74-106 mg/dL Assessment/Plan Impression: Acute hypoxic respiratory failure Dependence on supplemental oxygen Acute metabolic encephalopathy, improving End-stage renal disease, on hemodialysis Generalized weakness Pulmonary hypertension, RVSP 120 mmHg GGO on imaging Pleural effusion, left greater than right Atelectasis Mediastinal lymphadenopathy Events: Remains on supplemental oxygen On 2 LPM NC Taper O2 as tolerated Hemodialysis per Nephrology 09/18 - S/p hemodialysis with 3 L removed 09/19 - S/p hemodialysis with 3 L removed Improved mentation after hemodialysis Blood pressure improving, SBP in 150s. Nephrology recs appreciated Plan for right heart catheterization with Dr. Arauz pending neurological status and hemodynamic improvement Blood pressure control per Cardiology Continue antibiotics Continue antiviral Incentive spirometry Accu-Cheks, ISS. Continue antiepileptic - Keppra HOB elevation Aspiration precautions GI prophylaxis - Protonix On puree diet Monitor H&H Monitor platelets Transthoracic echocardiogram revealed LVEF 55-60% with abnormal septal motion due to RV pressure overload, grade II diastolic dysfunction, severe tricuspid regurgitation, and RVSP at 130 mmHg. PE ruled out. Pulmonary hypertension likely due to 2 AVF. Recommend outpatient right heart catheterization. Cardiology recommendations. Dispo per hospitalist. Labs and imaging reviewed. Rest of plan as noted below. Plan: Supplemental oxygen Titrate to keep O2 sats above 92%. Head of bed elevation Aspiration precautions Echo report reviewed. Cardiology recommendations appreciated Continue antibiotics Antiviral medication Incentive spirometry HD per Nephrology Follow up Nephrology recommendations Monitor renal function. Monitor electrolytes. Supplement as necessary. Monitor ins and outs. GI prophylaxis - Protonix DVT prophylaxis - heparin SC Prognosis: Poor given patient's multiple co-morbidities. Rest of plan per hospitalist and other consultants. Thank you, Dr. Tripp, for allowing me to participate in this patient's care. Further recommendations will depend on the patient's clinical course. Please do not hesitate to contact me if you have any questions or concerns. This medical document was created using an electronic medical record system with [facility] dictation system. Although these documentations are being carefully reviewed, there may still be some phonetic and typographical changes. The errors are purely typographical, due to imperfection on the software program, and do not reflect any compromise in the patient's medical care. Dietary Evaluation Review Comments: 1) Continue to provide assistance at mealtime 2) If feeding tube is in place, TF Nepro carb Steady @ 60ml/hr x 20hr. Water flush 50ml Q6H if allowed. TF @ goal volume provides 2160 kcal (100% energy), 98gm protein (100% protein), 872ml free water. 3) TPN if NPO x 7 days 4) Nephro-Amy 1 tab daily, Ergocalciferol 50,000IU 1 cap weekly 5) Continue current plan of care Expected Outcomes/Goals: To meet at least 75% estimated needs FU 2-3 days Plan discussed with: Patient, Other (, RN Delisa) BIANCA TAM MD September 21, 2024 21:16
== END 2024-09-21 16:57 | disposition home or self-care (01) | DRG 871 ==
LOC: EDBD 11:45 → ER 11:56 → OVERFLOW 21:14 → TELE-EAST 09-17 03:34 → TELE-WESTW 09-17 05:00 → WEST WING 09-21 09:50
PROVIDERS: ADMIT Internal Medicine; ATTEND Internal Medicine
PROC: 5A1D70Z Performance of Urinary Filtration, Intermittent, Less than 6 Hours Per Day (ICD-10-PCS; principal; 2024-09-13)
PROC: 5A1D70Z Performance of Urinary Filtration, Intermittent, Less than 6 Hours Per Day (ICD-10-PCS; 2024-09-16)
PROC: 5A1D70Z Performance of Urinary Filtration, Intermittent, Less than 6 Hours Per Day (ICD-10-PCS; 2024-09-17)
PROC: 5A1D70Z Performance of Urinary Filtration, Intermittent, Less than 6 Hours Per Day (ICD-10-PCS; 2024-09-19)
DX: A41.50 Gram-negative sepsis, unspecified (principal); G04.90 Encephalitis and encephalomyelitis, unspecified; G93.41 Metabolic encephalopathy; J96.01 Acute respiratory failure with hypoxia; N18.6 End stage renal disease; J15.69 Pneumonia due to other Gram-negative bacteria; J15.9 Unspecified bacterial pneumonia; E87.20 Acidosis, unspecified; I16.1 Hypertensive emergency; J90 Pleural effusion, not elsewhere classified; R18.8 Other ascites; E87.29 Other acidosis; G93.1 Anoxic brain damage, not elsewhere classified; I12.0 Hypertensive chronic kidney disease with stage 5 chronic kidney disease or end stage renal disease; E87.6 Hypokalemia; Z99.2 Dependence on renal dialysis; D63.1 Anemia in chronic kidney disease; R79.89 Other specified abnormal findings of blood chemistry; E66.9 Obesity, unspecified; E87.70 Fluid overload, unspecified; B02.9 Zoster without complications; F17.210 Nicotine dependence, cigarettes, uncomplicated; E21.1 Secondary hyperparathyroidism, not elsewhere classified; D69.6 Thrombocytopenia, unspecified; N25.0 Renal osteodystrophy; D50.9 Iron deficiency anemia, unspecified; I36.1 Nonrheumatic tricuspid (valve) insufficiency; G40.909 Epilepsy, unspecified, not intractable, without status epilepticus; Z20.822 Contact with and (suspected) exposure to COVID-19; R59.0 Localized enlarged lymph nodes; I27.20 Pulmonary hypertension, unspecified; Z79.899 Other long term (current) drug therapy; Z83.3 Family history of diabetes mellitus; Z82.49 Family history of ischemic heart disease and other diseases of the circulatory system; Z68.30 Body mass index [BMI] 30.0-30.9, adult; Z99.81 Dependence on supplemental oxygen; Z86.19 Personal history of other infectious and parasitic diseases
CPT/HCPCS: 36415; 36600; 70450; 70551; 71045; 71275; 76705; 80048; 80053; 80061; 80074; 80185; 80202; 82140; 82306; 82607; 82728; 82805; 82962; 83036; 83540; 83550; 83605; 83735; 84100; 84443; 84484; 85007; 85025; 85027; 85610; 85652; 85730; 86141; 87040; 87081; 87426; 87804; 90935; 92610; 93005; 93306; 95819; 96372; 97110; 97116; 97162; 97530; 99291; G0378; J1642; J2185; J2470; J7060; P9047

== ENCOUNTER 2024-09-24 05:26 | Inpatient (IN) | payer MEDICARE, MEDICAID ==
[~2024-09-24] VITALS: Ht 157.5 cm; Wt 51.2 kg
[2024-09-24] VITALS (32 sets, daily range): BP systolic 140–204; BP diastolic 73–110; PULSE 54–80; RESP 12–35; TEMP 97.2–97.5; O2SAT 90–100
[~2024-09-24 05:26] MED LIST changes: +ERGO1CAP23 PO; +HYDR25TA87 PO; +KEP500T PO; +NIFE1TAB30 PO; -VALA1TAB34 PO; +VALA500T33 PO
--- NOTE | 2024-09-24 05:36 | ECG ---
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
[2024-09-24] MEDS: SODIUM CHLORIDE 0.9% 500 ML IV ONE ×2 (06:25)
--- NOTE | 2024-09-24 06:28 | ED.PDOC ---
History of Present Illness HPI Comments 68 year old female presents to the ED via EMS with a chief complaint of generalized weakness onset today (09/24/24). Per EMS, patient was at dialysis, goes Friday, Friday, Friday, when she began experiencing generalized weakness. BP was checked, she was hypotensive, 911 was called. Patient was given 500 mL fluids in route. Upon ED arrival BP was 82/48, patient states she has no further complaints. PMHx ESRD, HTN, seizures. Denies chest pain, shortness of breath, headache, dizziness, nausea, vomiting, fever, chills. No other symptoms or modifying factors present at this time. Chief Complaint: General Weakness Time Seen by MD: 06:10 Primary Care Provider: AMANDA Reviewed Notes: Medications, Allergies Allergies: Coded Allergies: Diphenhydramine (Verified Allergy, Unknown, 09/16/24) Gabapentin (Verified Allergy, Unknown, 09/16/24) Home Meds Active Scripts Valacyclovir Hcl (Valacyclovir Hcl) 500 Mg Tab, 1 TAB PO BID for 16 Days, #32 TAB Prov:CAROLEE WOODRUFF 09/21/24 Ergocalciferol (VITAMIN D 07219 UNIT) 50,[address] [place], [address] UNIT PO weekly for 12 Days, #12 CAP Prov:CAROLEE WOODRUFF 09/21/24 Levetiracetam (KEPPRA TABLET) 500 Mg Tb, 500 MG PO BID for 30 Days, #60 TAB 2 Refills Prov:CAROLEE WOODRUFF 09/21/24 Hydralazine HCl (Hydralazine HCl) 25 Mg Tab, 25 MG PO Q8HR for 30 Days, #90 TAB 2 Refills Prov:CAROLEE WOODRUFF 09/21/24 Nifedipine (Nifedipine Er) 60 Mg Tab, 1 TAB PO DAILY for 30 Days, #30 TAB 2 Refills Prov:CAROLEE WOODRUFF 09/21/24 Reported Medications Phenytoin Sodium (Dilantin) 100 Mg Cap 08/05/11 Discontinued Scripts Valacyclovir HCl (Valacyclovir HCl) 1 Gm Tab, 1 GM PO TID for 7 Days, #21 TAB Prov:VENU BETTENCOURT DO 09/09/24 Information Source: Patient, Emergency Med Personnel Mode of Arrival: EMS Severity: Moderate Timing: Hours Duration: Since onset Prehospital treatment: IVF Past Medical History PAST MEDICAL HISTORY: ESRD, HTN, Seizures Surgical History: Denies all surgeries PREDATOR CONTROL TRAPPER History: No Pertinent PREDATOR CONTROL TRAPPER History Family History Family History: No family hx of DM, No family hx of Heart charlene Social History Smoker: Less Than 1 Pack/Day Alcohol: Other Drugs: Denies Drug Use Lives In: Home Constitutional: reports: weakness; denies: chills, diaphoresis, fatigue, fever, malaise, sweats, others EENTM: denies: blurred vision, double vision, ear bleeding, ear discharge, ear drainage, ear pain, ear ringing, eye pain, eye redness, hearing loss, mouth pain, mouth swelling, nasal discharge, nose bleeding, nose congestion, nose pain, photophobia, tearing, throat pain, throat swelling, voice changes, others Respiratory: denies: cough, hemoptysis, orthopnea, SOB at rest, shortness of breath, SOB with excertion, stridor, wheezing, others Cardiovascular: reports: others (hypotension); denies: chest pain, dizzy spells, diaphoresis, Dyspnea on exertion, edema, irregular heart beat, left arm pain, lightheadedness, palpitations, PND, syncope Gastrointestinal: denies: abdomen distended, abdominal pain, blood streaked bowels, constipated, diarrhea, dysphagia, difficulty swallowing, hematemesis, melena, nausea, poor appetite, poor fluid intake, rectal bleeding, rectal pain, vomiting, others Genitourinary: denies: abnormal vagina bleeding, burning, dyspareunia, dysuria, flank pain, frequency, hematuria, incontinence, pain, , vagina discharge, urgency, others Neurological: reports: weakness; denies: dizziness, fainting, headache, left sided numbness, left sided weakness, numbness, paresthesia, pre-existing deficit, right sided numbness, right sided weakness, seizure, speech problems, tingling, tremors, others Musculoskeletal: denies: back pain, gout, joint pain, joint swelling, muscle pain, muscle stiffness, neck pain, others Integumetry: denies: bruises, change in color, change in hair/nails, dryness, laceration, lesions, lumps, rash, wounds, others Allergic/Immunocompromised: denies: Difficulty Healing, Frequent Infections, Hives, Itching, others Hematologic/Lymphatic: denies: anemia, blood clots, easy bleeding, easy bruising, swollen glands, others Endocrine: denies: excessive hunger, excessive sweating, excessive thirst, excessive urination, flushing, intolerance to cold, intolerance to heat, unexplained weight gain, unexplained weight loss, others Psychiatric: denies: anxiety, bipolar disorder, depression, hopeless, panic disorder, schizophrenia, sleepless, suicidal, others All Other Systems: Reviewed and Negative Physical Exam General Appearance: No Apparent Distress, Normal HEENT: Normal ENT Inspection, Pharynx Normal, TMs Normal Neck: Full Range of Motion, Non-Tender, Normal, Normal Inspection Respiratory: Chest Non-Tender, Lungs Clear, No Accessory Muscle Use, No Respiratory Distress, Normal Breath Sounds Cardiovascular: No Edema, No JVD, No Murmur, No Gallop, Normal Peripheral Pulses, Regular Rate/Rhythm Breast Exam: Deferred Gastrointestinal: No Organomegaly, Non Tender, No Pulsatile Mass, Normal Bowel Sounds, Soft Genitalia: Deferred Pelvic: Deferred Rectal: Deferred Extremities: No calf tenderness, Normal capillary refill, Normal inspection, Normal range of motion, Non-tender, No pedal edema Musculoskeletal : Apperance: Normal Neurologic: Alert, international controller II-XII nml as Tested, No Motor Deficits, Normal Affect, Normal Mood, No Sensory Deficits Cerebellar Function: Normal Reflexes: Normal Skin: Dry, Normal Color, Warm Lymphatic: No Adenopathy Was a procedure done? Was a procedure done?: No EKG EKG : Pulse Rate (adult): 53 Cardiac Rhythm: NSR Differential Dx Considerations may include: ACS, CVA, electrolyte abnormality, sepsis. X-Ray, Labs, Meds, VS Vital Signs Date Time Temp Pulse Resp B/P (MAP) Pulse Ox O2 Delivery O2 Flow Rate FiO2 09/24/24 07:00 52 17 84/87 (86) 98 09/24/24 06:28 53 09/24/24 05:42 54 19 98 Nasal Cannula* 2 28 09/24/24 05:32 97.7 53 12 82/48 (59) 97 97.7 09/24/24 05:32 97.4 54 11 82/48 (59) 95 97.4 09/24/24 05:31 53 09/24/24 05:26 97.4 54 18 82/48 (59) 96 97.4 Lab Test 09/24/24 06:40 Range/Units White Blood Count 5.1 # 4.4-10.8 10^3/uL Red Blood Count 2.47 L 4.0-5.20 10^6/uL Hemoglobin 7.6 #L 12.2-16.2 g/dL Hematocrit 23.1 #L 36.0-46.0 % Mean Corpuscular Volume 93.4 80.0-100.0 fL Mean Corpuscular Hemoglobin 30.8 28.0-32.0 pg Mean Corpuscular Hemoglobin Concent 33.0 32.0-36.0 g/dL Red Cell Distribution Width 21.6 H 11.8-14.3 % Platelet Count 179 140-450 10^3/uL Mean Platelet Volume 7.9 6.9-10.8 fL Neutrophils (%) (Auto) 62.8 37.0-80.0 % Lymphocytes (%) (Auto) 18.2 10.0-50.0 % Monocytes (%) (Auto) 13.3 H 0.0-12.0 % Eosinophils (%) (Auto) 4.4 0.0-7.0 % Basophils (%) (Auto) 1.3 0.0-2.0 % Neutrophils # (Auto) 3.2 1.6-8.6 10 ^3/uL Lymphocytes # (Auto) 0.9 0.4-5.4 10 ^3/uL Monocytes # (Auto) 0.7 0-1.3 10 ^3/uL Eosinophils # (Auto) 0.2 0-0.8 10 ^3/uL Basophils # (Auto) 0.1 0-0.2 10 ^3/uL Nucleated Red Blood Cells 0.7 % Sodium Level 139 # 136-145 mmol/L Potassium Level 2.9 L 3.5-5.1 mmol/L Chloride Level 106 98-107 mmol/L Carbon Dioxide Level 24 20-31 mmol/L Anion Gap 9 5-15 Blood Urea Nitrogen 12 9-23 mg/dL Creatinine 4.39 H 0.550-1.02 mg/dL Glomerular Filtration Rate Calc 10 >90 mL/min BUN/Creatinine Ratio 2.7 L 10.0-20.0 Serum Glucose 73 L 74-106 mg/dL Calcium Level 7.3 L 8.7-10.4 mg/dL Troponin I High Sensitivity 10 </=34 ng/L B-Type Natriuretic Peptide 748.31 0-100 pg/mL Current Medications Medications (Trade) Dose Ordered Sig/Maru Route Start Time Stop Time Status Last Admin Sodium Chloride 500 ml @ 500 mls/hr Q1H ONCE IV 09/24/24 06:15 09/24/24 07:14 DC 09/24/24 06:25 [place] [address] Ph: [phone] DIAGNOSTIC IMAGING Diagnostic Imaging Report : [id number] Signed PATIENT: SUNIL CHAVES ACCT: [id number] UNIT: [id number] : 1955 LOC: ER ROOM / BED: / AGE / SEX: 68 / F ADM STATUS: REG ER SERVICE 8 ORDERING PHYSICIAN: PANCHO NARAYANAN MD PROCEDURE(s): CXRP - CHEST PORTABLE REASON: hypotension ORDER NUMBER(s): [id number], ACCESSION NUMBER(s): [id number] EXAM: XR Chest, 1 View CLINICAL INDICATION: hypotension TECHNIQUE: Frontal view of the chest. COMPARISON: XY CHEST PORTABLE on DOS: 09/17/24, XY CHEST XRAY 1 VIEW on DOS: 09/15/24, XY CHEST PORTABLE on DOS: 09/11/24 FINDINGS: LUNGS AND PLEURAL SPACES: See below. HEART: Cardiomegaly with pulmonary congestion and edema. Superimposed pneumonia cannot be excluded. MEDIASTINUM: Unremarkable. Normal mediastinal contour. BONES/JOINTS: Unremarkable. No acute fracture. OTHER FINDINGS: . IMPRESSION: Cardiomegaly with pulmonary congestion and edema. Superimposed pneumonia cannot be excluded. ATED BY: BRIDGET GONZALEZ MD DICTATED DATE/TIME: 09/24/24637 SIGNED BY: BRIDGET GONZALEZ MD SIGNED DATE/TIME: 09/24/24637 CC: Time of 1ST Reevaluation: 06:40 Reevaluation 1ST: Unchanged Patient Education/Counseling: Diagnosis, Treatment, Prognosis Family Education/Counseling: No Family Present Additional Information The following tests were ordered, and results were reviewed by me: EKG, BMP, CBC, TROP, BNP, XY CHEST Additional Information was gathered from interviewing the following independent historians: EMS I reviewed and agreed with the following test results read by other providers: XY CHEST I discussed treatment and results with medical personnel and: patient Comprehensive systems review obtained and negative except for what is stated in the HPI. Departure 1 Departure Time of Disposition: 07:51 (Patient presented asymptomatic but hypotensive. Patient was given fluids and empirically given antibiotics. Since patient has a refractory hypotension which may be secondary to hypokalemia patient was given potassium supplementation admitted to the ICU for further workup.Patient is not septic.) Impression: Primary Impression: Hypotension Qualified Codes: I95.9 - Hypotension, unspecified Additional Impressions: Generalized weakness Hypokalemia Disposition: ADMITTED INPATIENT Admit to: ICU Condition: Guarded Critical Care Note Critical Care Time?: Yes Critical care comment: Hypotension Authorized and Performed by: Pancho Narayanan MD Total critical care time: Approximately 36 minutes Due to a high probability of clinically significant, life threatening deterioration, the patient required my highest level of preparedness to intervene emergently and I personally spent this critical care time directly and personally managing the patient. This critical care time included obtaining a history; examining the patient; pulse oximetry; ordering and review of studies; arranging urgent treatment with development of a management plan; evaluation of patient's response to treatment; frequent reassessment; and, discussions with other providers. This critical care time was performed to assess and manage the high probability of imminent, life-threatening deterioration that could result in multi-organ failure. It was exclusive of separately billable procedures and treating other patients and teaching time. Please see my other sections and the rest of the note for further information on patient assessment and treatment. Stability Stability form required: No I personally scribed for PANCHO NARAYANAN MD ([email or web address]) on 09/24/24 at 06:28. Electronically submitted by Denia Lyn ([email or web address]). I personally scribed for PANCHO NARAYANAN MD ([email or web address]) on 09/24/24 at 06:58. Electronically submitted by Denia Lyn ([email or web address]). I personally scribed for PANCHO NARAYANAN MD ([email or web address]) on 09/24/24 at 06:59. Electronically submitted by Denia Lyn ([email or web address]). PANCHO NARAYANAN MD September 24, 2024 06:28
--- NOTE | 2024-09-24 06:41 | DVH ---
EXAM: XR Chest, 1 View CLINICAL INDICATION: hypotension TECHNIQUE: Frontal view of the chest. COMPARISON: XY CHEST PORTABLE on DOS: 09/17/24, XY CHEST XRAY 1 VIEW on DOS: 09/15/24, XY CHEST PORTABL E on DOS: 09/11/24 FINDINGS: LUNGS AND PLEURAL SPACES: See below. HEART: Cardiomegaly with pulmonary congestion and edema. Superimposed pneumonia cannot be excluded. MEDIASTINUM: Unremarkable. Normal mediastinal contour. BONES/JOINTS: Unremarkable. No acute fracture. OTHER FINDINGS: . IMPRESSION: Cardiomegaly with pulmonary congestion and edema. Superimposed pneumonia cannot be excluded.
[2024-09-24 07:17] LABS: Anion Gap 9 (5-15); Carbon Dioxide 24 mmol/L (20-31); Chloride 106 mmol/L (98-107); Sodium 139 mmol/L (136-145)
[2024-09-24 07:23] LABS: BUN/Creatinine Ratio 2.7 (10.0-20.0); Basophils # (auto) 0.1 10 ^3/uL (0-0.2); Basophils % (auto) 1.3 % (0.0-2.0); Blood Urea Nitrogen 12 mg/dL (9-23); Calcium 7.3 mg/dL (8.7-10.4); Glucose 73 mg/dL (74-106); Hemoglobin 7.6 g/dL (12.2-16.2); Lymphocytes # (auto) 0.9 10 ^3/uL (0.4-5.4); Neutrophils # (auto) 3.2 10 ^3/uL (1.6-8.6); Potassium 2.9 mmol/L (3.5-5.1)
[2024-09-24 07:25] LABS: Eosinophils # (auto) 0.2 10 ^3/uL (0-0.8); Eosinophils % (auto) 4.4 % (0.0-7.0); Hematocrit 23.1 % (36.0-46.0); Lymphocytes % (auto) 18.2 % (10.0-50.0); Mean Corpuscular Hemoglobin 30.8 pg (28.0-32.0); Mean Corpuscular Volume 93.4 fL (80.0-100.0); Monocytes # (auto) 0.7 10 ^3/uL (0-1.3); Monocytes % (auto) 13.3 % (0.0-12.0); Neutrophils % (auto) 62.8 % (37.0-80.0); Nucleated Red Blood Cells % 0.7 %; Platelet Count (auto) 179 10^3/uL (140-450); Red Blood Cells 2.47 10^6/uL (4.0-5.20); White Blood Cell 5.1 10^3/uL (4.4-10.8)
[2024-09-24 07:32] LABS: Red Cell Distribution Width 21.6 % (11.8-14.3)
[2024-09-24] MEDS: VANCOMYCIN 1GM/200ML PM 200 ML IV ONE (07:45)
[2024-09-24] MEDS: NOREPINEPHRINE 8 MG/250ML KIT 250 ML IV SCH (07:45)
[2024-09-24] MEDS: NOREPINEPHRINE 8 MG/250ML KIT 250 ML IV ONE (07:46)
[2024-09-24] MEDS ORDERED: ONDANSETRON HCL 4 MG/2 ML VIAL IV PRN (08:15)
[2024-09-24] MEDS ORDERED: NITROGLYCERIN 0.4 MG SL TAB SL PRN (08:15)
[2024-09-24] MEDS ORDERED: VANCOMYCIN PER PHARMACY 0 MG IV SCH (08:15)
[2024-09-24] MEDS ORDERED: ERGOCALCIFEROL 50,000 UNIT(1.25MG) CAP PO SCH (08:15)
[2024-09-24] MEDS ORDERED: MORPHINE SULFATE INJ 2 MG/ml SYRG IV PRN (08:15)
--- NOTE | 2024-09-24 09:15 | DVHHP2 ---
History of Present Illness Reason for Visit: Generalized weakness History of Present Illness Cheryl Wright is a 68-year-old female with past medical history of seizures, hypertension, COPD on home oxygen, and end-stage renal disease on HD (M/W/F) who presents to the ED with generalized weakness and low blood pressure. Patient reports that she was at the dialysis center and they had checked her blood pressure stated that it was low and called 911. Patient states that she uses oxygen at home but does not recall how much she also states that she does not have any more left. Patient also does not know who her house player is. Patient denies any chest pain, shortness of breath, fever, chills, lightheaded ness, weakness, dizziness, abdominal pain, nausea, vomiting, diarrhea, recent trauma or injury, recent sick contacts, or recent travels. Patient reports that she does ambulate without any DMEs. 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 ICU: Seizure Renal/: Chronic renal failure Past Surgical History: None Family History: Other (Both parents ) Smoke: <1 pack per day ALCOHOL: none Drugs: None Lives: with Family Domestic Violence: Neg Review of Systems Constitutional: Yes: Weakness Allergies: Coded Allergies: Diphenhydramine (Verified Allergy, Unknown, 09/16/24) Gabapentin (Verified Allergy, Unknown, 09/16/24) Medications Current Medications Medications Dose Ordered Sig/Maru Route Start Time Stop Time Status Last Admin Dose Admin Norepinephrine Bitartrate 250 ml @ 3.75 mls/hr Q24H IV 09/24/24 07:45 09/24/24 07:45 3.75 MLS/HR Exam Vital Signs Vital Signs Date Time Temp Pulse Resp B/P (MAP) Pulse Ox O2 Delivery O2 Flow Rate FiO2 09/24/24 07:46 79/42 09/24/24 07:00 52 17 98 09/24/24 05:42 Nasal Cannula* 2 28 09/24/24 05:32 97.7 97.7 General Appearance: Alert, Oriented X3, Cooperative, No acute distress HEENT: Atraumatic, PERRLA, EOMI Respiratory: Normal air movement Cardiovascular: Normal S1, Normal S2, No murmurs Abdominal: Normal bowel sounds, Soft, No tenderness, No hepatospenomegaly, No masses Extremities: No clubbing, No cyanosis, No edema, Normal pulses Skin: No significant lesion Neuro: Normal speech, Normal tone, Sensation intact Psych/Mental Status: Mental status NL, Mood NL Labs/Xrays Labs Test 09/24/24 08:12 09/24/24 06:40 Range/Units White Blood Count 5.1 # 4.4-10.8 10^3/uL Red Blood Count 2.47 L 4.0-5.20 10^6/uL Hemoglobin 7.6 #L 12.2-16.2 g/dL Hematocrit 23.1 #L 36.0-46.0 % Mean Corpuscular Volume 93.4 80.0-100.0 fL Mean Corpuscular Hemoglobin 30.8 28.0-32.0 pg Mean Corpuscular Hemoglobin Concent 33.0 32.0-36.0 g/dL Red Cell Distribution Width 21.6 H 11.8-14.3 % Platelet Count 179 140-450 10^3/uL Mean Platelet Volume 7.9 6.9-10.8 fL Neutrophils (%) (Auto) 62.8 37.0-80.0 % Lymphocytes (%) (Auto) 18.2 10.0-50.0 % Monocytes (%) (Auto) 13.3 H 0.0-12.0 % Eosinophils (%) (Auto) 4.4 0.0-7.0 % Basophils (%) (Auto) 1.3 0.0-2.0 % Neutrophils # (Auto) 3.2 1.6-8.6 10 ^3/uL Lymphocytes # (Auto) 0.9 0.4-5.4 10 ^3/uL Monocytes # (Auto) 0.7 0-1.3 10 ^3/uL Eosinophils # (Auto) 0.2 0-0.8 10 ^3/uL Basophils # (Auto) 0.1 0-0.2 10 ^3/uL Nucleated Red Blood Cells 0.7 % Sodium Level 139 # 136-145 mmol/L Potassium Level 2.9 L 3.5-5.1 mmol/L Chloride Level 106 98-107 mmol/L Carbon Dioxide Level 24 20-31 mmol/L Anion Gap 9 5-15 Blood Urea Nitrogen 12 9-23 mg/dL Creatinine 4.39 H 0.550-1.02 mg/dL Glomerular Filtration Rate Calc 10 >90 mL/min BUN/Creatinine Ratio 2.7 L 10.0-20.0 Serum Glucose 73 L 74-106 mg/dL Calcium Level 7.3 L 8.7-10.4 mg/dL Troponin I High Sensitivity 10 </=34 ng/L B-Type Natriuretic Peptide 748.31 0-100 pg/mL EXAM: XR Chest, 1 View CLINICAL INDICATION: hypotension TECHNIQUE: Frontal view of the chest. COMPARISON: XY CHEST PORTABLE on DOS: 09/17/24, XY CHEST XRAY 1 VIEW on DOS: 09/15, XY CHEST PORTABLE on DOS: 09/11/24 FINDINGS: LUNGS AND PLEURAL SPACES: See below. HEART: Cardiomegaly with pulmonary congestion and edema. Superimposed pneumonia cannot be excluded. MEDIASTINUM: Unremarkable. Normal mediastinal contour. BONES/JOINTS: Unremarkable. No acute fracture. OTHER FINDINGS: . IMPRESSION: Cardiomegaly with pulmonary congestion and edema. Superimposed pneumonia cannot be excluded. Assessment/Plan Assessment/Plan Assessment Acute hypoxic respiratory failure with pneumonia Rule out sepsis Acute hypovolemic shock Cardiomegaly Severe anemia Hypokalemia Tobacco use History of seizures History of hypertension History of COPD on oxygen History of ESRD on HD (M/W/F) Plan Admit to ICU Vasopressors to keep MAP> 65 IV antibiotics-vancomycin + cefepime Chest x-ray noted EKG noted Replete lytes NS 1 L given in ED Blood cultures Lactic level BNP Troponin negative Type and screen UDS Diet Home medications reconciled DVT prophylaxis-SCDs PUD prophylaxis-not indicated no history of GERD or GI bleed Discussed plan of care with patient and nurse Counseled patient on cessation of tobacco use Nephro consult Plan discussed with: Patient My Orders Orders - ROMEL RICE LIGHT RAIL SIGNAL TECHNICIAN Procedure Category Date Status Time Admit ADMIT 09/24/24 Verified 08:03 Allergies MELLY 09/24/24 Verified 08:03 Code Status CODE 09/24/24 Verified 08:03 Renal DIET 09/24/24 Verified Standard(2gna,3gk,Lopho) Breakfast Ondansetron Hcl PHA 09/24/24 Verified (Zofran) 08:15 Complete Blood Count LAB 09/25/24 Verified 04:00 Comprehensive LAB 09/25/24 Verified Metabolic Panel 04:00 Acetaminophen Tablet PHA 09/24/24 Verified (Tylenol Tablet) 08:15 Sequential MELLY 09/24/24 Verified Compression Device Nitroglycerin PHA 09/24/24 Verified Sublingual (Ntrostat 08:15 Morphine Sulfate PHA 09/24/24 Verified Injection 08:15 Stat Ekg For Chest [facility] 09/24/24 Verified Pain 08:03 Notify Md Of Changes [facility] 09/24/24 Verified From Base 08:03 Belt Builder Helper For [facility] 09/24/24 Verified 24 Hours 08:03 Emergency Dysrhythmia [facility] 09/24/24 Verified Protocol 08:03 Rhythm Strips Once [facility] 09/24/24 Verified Every Shift 08:03 Oxygen By Nasal RT 09/24/24 Verified Cannula 08:03 Type And Screen BBK 09/24/24 Verified 08:03 *[facility] CONS 09/24/24 Verified -[place] 08:03 Vancomycin Per PHA 09/24/24 Verified Pharmacy 08:15 Cefepime 1 Gm [facility] 09/24/24 Verified 10:00 Ergocalciferol [facility] 09/24/24 Verified (Vitamin D 50,000 08:15 Levetiracetam Tablet [facility] 09/24/24 Verified (Keppra Tablet) 10:00 Phenytoin Capsule [facility] 09/24/24 Verified (Dilantin Capsule) 10:00 Date of Service: September 24, 2024 Billing Provider: ROMEL RICE Common Visit Codes: [id number] INP/OBS CARE (HIGH) ROMEL RICE September 24, 2024 09:15
[2024-09-24] MEDS: POTASSIUM CHL 20 Meq TABLET PO ONE (09:20)
[2024-09-24] MEDS: CEFEPIME 2GM/50ML NS 50 ML IV ONE (09:52)
[2024-09-24] MEDS: PHENYTOIN SODIUM 100 MG CAP PO SCH (10:00)
[2024-09-24] MEDS: levETIRAcetam 500 MG TAB PO SCH (10:00)
[2024-09-24] MEDS: KETAMINE 50mg/ML 10ml Vial (500mg/10ml) IV ONE ×2 (10:30→11:11)
--- NOTE | 2024-09-24 12:39 | DVH ---
Procedure: XY CHEST PORTABLE 09/24/2024 11:39 AM Indication: MIDLINE PLACEMENT Comparison: XY CHEST PORTABLE on DOS: 09/24/24, XY CHEST PORTABLE on DOS: 09/17/24, XY CHEST XRAY 1 VIEW on DOS: 09/15/24 FINDINGS: Lines and Tubes: A left subclavian central line is seen with the tip in mid SVC but not descending to jay the cavoatrial junction. Cardiomediastinal: The heart is moderately enlarged . Pulmonary vasculature is prominent. Atheroscler otic calcification of the aortic arch noted. Lungs: Diffuse bilateral interstitial and ground-glass opacities noted. Blunting of the right costop hrenic angle. No pneumothorax. Bones/soft tissues: No acute abnormality is noted. IMPRESSION: 1. Left subclavian line with the tip entering SVC but not descending toward the cavoatrial junction. No pneumothorax is noted.
--- NOTE | 2024-09-24 13:46 | DVHPN2 ---
Assessment/Plan Assessment/Plan ICU note 68 yo F with ESRD on HD sent from HD center due to hypotension. Poor historian Physical exam AOx3 but occasionally tangential JVD 1cm above clavicles PERLLA MMM Clear breath sounds S1 S2 RRR bradycardic Abdomen soft nontender RUE fistula labs ekg imaging reviewed POCUS done, good contractility, possible diastolic dysfunction, biatrial enlargement, severe TR, elevated RVSP, IVC ~2cm with >50% collapsibility, no effusion assessment and plan hypovolemic shock ESRD on HD Anemia 2/2 CKD Hypokalemia Hypocalcemia HFpEF chronic diastolic HF chronic hypoxic RF on home O2 COPD group E pHTN? seizure dz smoker unlikely sepsis wheelchair bound c/w levo, maintain MAP >65, titrate down as able c/w home O2 supp 2LPM HD per renal PLR positive, IVC collapsible although dilated, fluid challenge with 250 cc empiric abx coverage, will deescalate if no evidence of infection, vanc and cefepime resume home meds TLC strict i/o admit to BEBETO diet renal dvt ppx lovenox gi ppx not indicated condition critical prognosis poor full code Plan discussed with: Patient Date of Service: September 24, 2024 Billing Provider: TY OCHOA MD Common Visit Codes: [id number] CARE 30-74 MIN TY OCHOA MD September 24, 2024 13:46
--- NOTE | 2024-09-24 14:37 | DVHNC2 ---
Central Line Recorder of insertion practice: Solid Waste Engineer Occupation of finished stock inspector: Other (resident physician) Indication: Hypotension Room prepared for procedure: Yes Solid Waste Engineer performed hand hygien: Yes Maximal sterile barrier precau: Mask/Eye shield, Sterile gown, Cap, Sterlie gloves, Large sterlie drape Skin Preparation: Chlorhexidine gluconate, Providine iodine Skin preparation completely dr: Yes Insertion site: Left, Infraclavicular Central line catheter type: [id number] dialysis Number of lumens: 3 Post Assessment: Chest X-Ray, Proper placement Informed consent obtained: Yes Notes Left subclavian central venous triple lumen catheter placed under conscious sedation with 50mg ketamine with an observer Dr. Ochoa at bedside. Patient tolerated the procedure well Confirmation with Chest X ray post procedure Date of Service: September 24, 2024 Billing Provider: KELLY MAK Common Visit Codes: PROCEDURE ONLY Procedure Codes: [id number] NON-TUNNEL CV CATH KELLY MAK September 24, 2024 14:37 TY OCHOA MD September 28, 2024 12:38
[2024-09-24] MEDS: SODIUM CHLORIDE 0.9% 250 ML IV ONE (16:00)
[2024-09-24] MEDS: NIFEdipine ER 30 MG TAB PO ONE (18:32)
[2024-09-24] MEDS: hydrALAZINE HCL 20 MG/ML VL IV PRN (21:38)
[2024-09-24] MEDS: METOPROLOL TARTRATE 1MG/1ML-5ML VIAL IV ONE (22:47)
[2024-09-25] VITALS (96 sets, daily range): BP systolic 112–219; BP diastolic 58–183; PULSE 50–97; RESP 11–72; TEMP 97.2–97.7; O2SAT 91–100
[2024-09-25] MEDS: hydrALAZINE HCL 20 MG/ML VL IV PRN (00:28)
[2024-09-25] MEDS: cloNIDine HCL 0.1 MG TAB PO ONE (02:19)
[2024-09-25 04:09] LABS: Basophils # (auto) 0.1 10 ^3/uL (0-0.2); Eosinophils # (auto) 0.2 10 ^3/uL (0-0.8); Eosinophils % (auto) 2.7 % (0.0-7.0); Hemoglobin 8.5 g/dL (12.2-16.2); Lymphocytes # (auto) 1.4 10 ^3/uL (0.4-5.4); Lymphocytes % (auto) 21.2 % (10.0-50.0); Mean Corpuscular Hemoglobin 30.9 pg (28.0-32.0); Mean Corpuscular Hgb Conc. 33.9 g/dL (32.0-36.0); Mean Corpuscular Volume 91.1 fL (80.0-100.0); Monocytes # (auto) 0.6 10 ^3/uL (0-1.3); Monocytes % (auto) 9.3 % (0.0-12.0); Neutrophils # (auto) 4.3 10 ^3/uL (1.6-8.6); Neutrophils % (auto) 65.8 % (37.0-80.0); Nucleated Red Blood Cells % 0.1 %; Platelet Count (auto) 212 10^3/uL (140-450); Red Blood Cells 2.75 10^6/uL (4.0-5.20); Red Cell Distribution Width 21.1 % (11.8-14.3); White Blood Cell 6.5 10^3/uL (4.4-10.8)
[2024-09-25 04:21] LABS: Alanine Aminotransferase 10 U/L (7-40); Anion Gap 10 (5-15); BUN/Creatinine Ratio 3.2 (10.0-20.0); Blood Urea Nitrogen 20 mg/dL (9-23); Calcium 9.1 mg/dL (8.7-10.4); Carbon Dioxide 26 mmol/L (20-31); Glucose 75 mg/dL (74-106); Potassium 4.4 mmol/L (3.5-5.1); Total Protein 7.5 g/dL (5.7-8.2)
[2024-09-25 04:22] LABS: Albumin 3.3 g/dL (3.2-4.8); Aspartate Aminotransferase 37 U/L (13-40); Bilirubin, Total 0.4 mg/dL (0.2-1.0)
[2024-09-25 04:23] LABS: Alkaline Phosphatase 117 U/L (46-116); Chloride 97 mmol/L (98-107); Sodium 133 mmol/L (136-145)
[2024-09-25] MEDS: cloNIDine HCL 0.1 MG TAB PO PRN (05:27)
[2024-09-25] MEDS: SODIUM CHL 0.9% 1000 ML BAG XX ONE (09:45)
[2024-09-25] MEDS ORDERED: NIFEdipine ER 30 MG TAB PO SCH (10:00)
[2024-09-25] MEDS: LORazepam 2MG/ML-1ML VIAL IV PRN (11:50)
--- NOTE | 2024-09-25 12:42 | DVH ---
CT HEAD WITHOUT CONTRAST INDICATION: ALOC COMPARISON: CT HEAD WITHOUT CONTRAST on DOS: 09/12/24, CT HEAD WITHOUT CONTRAST on DOS: 09/11/24 TECHNIQUE: CT of the head without intravenous contrast. RADIATION DOSE: CTDIvol: 47.89 mGy, DLP: 866.89 mGy*cm FINDINGS: There is no evidence of acute intracranial hemorrhage, extra-axial collection, mass effect, midline s hift, herniation or hydrocephalus. The ventricles, sulci and cisterns are age appropriate. The perez -white differentiation is intact. The visualized paranasal sinuses and mastoid air cells are clear. The surrounding soft tissues and osseous structures are unremarkable. IMPRESSION: 1. No evidence of acute intracranial hemorrhage, mass effect or hydrocephalus.
[2024-09-25] MEDS: CEFEPIME 1GM/ 50ML 50 ML IV SCH (13:28)
[2024-09-25] MEDS: VANCOMYCIN 500mg/100mL 100 ML IV ONE (15:00)
--- NOTE | 2024-09-25 15:50 | DVHPN2 ---
Subjective very lethargic today Changes from previous H/P or p: No Changes Objective Vitals Vital Signs Date Time Temp Pulse Resp B/P (MAP) Pulse Ox O2 Delivery O2 Flow Rate FiO2 09/25/24 14:00 61 09/25/24 14:00 14 100 Nasal Cannula* 1 24 09/25/24 13:29 162/81 09/25/24 08:02 97.7 97.7 Intake/Output Intake and Output 09/25/24 07:00 Intake Total 925.00 ml Balance 925.00 ml Intake Oral 315 ml IV Total 610.00 ml # Bowel Movements 3 General Appearance: Other (lethargic and minimally responsive) HEENT: Atraumatic, EOMI Lungs: Clear to auscultation Cardiovascular: Regular rate, Normal S1 Neuro: Strength at 5/5 X4 ext Medications Current Medications Medications Dose Ordered Sig/Maru Route Start Time Stop Time Status Last Admin Dose Admin Norepinephrine Bitartrate 250 ml @ 3.75 mls/hr Q24H IV 09/24/24 07:45 09/24/24 07:45 3.75 MLS/HR Acetaminophen 650 mg Q6HP PRN PO 09/24/24 08:15 Vancomycin HCl 0 ml @ 0 mls/hr UD IV 09/24/24 08:15 Cefepime HCl 50 ml @ 12.5 mls/hr DAILY IV 09/25/24 10:00 09/25/24 13:28 12.5 MLS/HR Ergocalciferol 50,000 unit QWEEKLY PO 09/24/24 08:15 Hold Phenytoin Sodium 100 mg DAILY PO 09/24/24 10:00 09/24/24 10:00 100 MG Hydralazine HCl 10 mg Q4HPRN PRN IV 09/25/24 00:15 09/25/24 11:22 10 MG Clonidine HCl 0.1 mg Q4HP PRN PO 09/25/24 02:15 09/25/24 05:27 0.1 MG Lorazepam 1 mg Q4HP PRN IV 09/25/24 11:45 09/25/24 11:50 1 MG Levetiracetam 100 ml @ 400 mls/hr BID IV 09/25/24 22:00 Dextrose/Sodium Chloride 1,000 ml @ 30 mls/hr Q24H IV 09/25/24 13:15 Nicardipine/ Sodium Chloride 200 ml @ 50 mls/hr Q4H IV 09/25/24 14:00 Laboratory Results Laboratory Tests 09/25/24 03:00 Chemistry Test 09/25/24 03:00 Albumin 3.3 g/dL (3.2-4.8) Calcium Level 9.1 mg/dL (8.7-10.4) Magnesium Level 2.0 mg/dL (1.6-2.6) Phosphorus Level 4.0 mg/dL (2.4-5.1) Total Protein 7.5 g/dL (5.7-8.2) LFT Test 09/25/24 03:00 Alanine Aminotransferase (ALT) 10 U/L (7-40) Alkaline Phosphatase 117 U/L (46-116) H Aspartate Amino Transferase (AST) 37 U/L (13-40) Total Bilirubin 0.4 mg/dL (0.2-1.0) Blood Gas Results Test 09/25/24 11:50 Arterial Blood pH 7.542 (7.350-7.450) FiO2 % 28.0 Microbiology Microbiology Date/Time Source Procedure Growth Status 09/24/24 17:59 Nose MRSA Screen - Final Complete 09/24/24 08:27 Blood Blood Culture - Preliminary NO GROWTH AFTER 24 HOURS OF INCUBATION. Resulted Assessment/Plan Assessment/Plan Acute hypoxic respiratory failure with pneumonia Rule out sepsis Acute hypovolemic shock Cardiomegaly Severe anemia Hypokalemia Tobacco use History of seizures History of hypertension History of COPD on oxygen History of ESRD on HD (M/W/F) Will start nicardipine drip CT head stat Change IV to keppra IV ABX Critical care time was 59 minutes Plan discussed with: Other (nurse) My Orders Orders - NAA CHOU MD Procedure Category Date Status Time Head Without Contrast CT 09/25/24 Resulted 11:34 Lorazepam 2mg/Ml Inj PHA 09/25/24 In Process (Ativan Inj) 11:45 Abg W/ Co-Ox RT 09/25/24 Logged 11:34 Levetiracetam 500 PHA 09/25/24 In Process Mg/100ml (Levetiraceta 22:00 D5w/Sod Chlo 0.9% PHA 09/25/24 In Process (D5w Ns 0.9%) 13:15 Nicardipine Hcl In PHA 09/25/24 In Process Sodium Chlo (Cardene 14:00 Date of Service: September 25, 2024 Billing Provider: NAA CHOU MD Common Visit Codes: [id number] CARE 30-74 MIN NAA CHOU MD September 25, 2024 15:50
[2024-09-25] MEDS: D5W/SOD CHLO 0.9% 1,000 ML IV SCH (16:01)
[2024-09-25] MEDS: NICARDIPINE HCL IN SODIUM CHLO 200 ML IV SCH (18:00)
--- NOTE | 2024-09-25 19:15 | DVHINCON2 ---
Date of service: September 25, 2024 Referring Physician Covering ICU team Reason for Consultation Acute hypoxic respiratory failure, pneumonia and COPD History of Present Illness A 68-year-old woman with past medical history of COPD on home oxygen, seizures, hypertension, and end-stage renal disease on HD (M/W/F) who presented to the ED on 09/24/24 with generalized weakness and low blood pressure. Patient reports that she was at the dialysis center and they had checked her blood pressure, was low and called 911. Patient reports using oxygen at home but does not recall how much; she also stated that she does not have any more left. Patient denied any chest pain, shortness of breath, fever, chills, or GI symptoms. Patient was admitted for further care and pulmonary consultation is requested for evaluation and management of acute hypoxic respiratory failure, pneumonia and COPD. Review of Systems: 14-point review of systems negative unless otherwise noted above. Past Medical History: COPD on home oxygen, seizures, hypertension, and end-stage renal disease on HD (M/W/F) Past Surgical History: None Medications: Reviewed. Allergies: Diphenhydramine and Gabapentin Family History: No family history of premature CAD. No family history of lung disorders. Social History: Smoker, less than 1 PPD. No alcohol or illicit drug use. Family History: Unknown Unknown family medical history Allergies: Coded Allergies: Diphenhydramine (Verified Allergy, Unknown, 09/16/24) Gabapentin (Verified Allergy, Unknown, 09/16/24) Home Meds Active Scripts Valacyclovir Hcl (Valacyclovir Hcl) 500 Mg Tab, 1 TAB PO BID for 16 Days, #32 TAB [facility] Ergocalciferol (VITAMIN D 65406 UNIT) 50,000 [place], [address] UNIT PO weekly for 12 Days, #12 CAP Prov:[facility] 09/21/24 Levetiracetam (KEPPRA TABLET) 500 Mg Tb, 500 MG PO BID for 30 Days, #60 TAB 2 Refills Prov:[facility] 09/21/24 Hydralazine HCl (Hydralazine HCl) 25 Mg Tab, 25 MG PO Q8HR for 30 Days, #90 TAB 2 Refills Prov:J[facility]EMÍASCAROLEEEN[facility] 09/21/24 Nifedipine (Nifedipine Er) 60 Mg Tab, 1 TAB PO DAILY for 30 Days, #30 TAB 2 Refills Prov:CAROLEE WOODRUFF RESIDENT 09/21/24 Reported Medications Phenytoin Sodium (Dilantin) 100 Mg Cap 08/05/11 Discontinued Scripts Valacyclovir HCl (Valacyclovir HCl) 1 Gm Tab, 1 GM PO TID for 7 Days, #21 TAB Prov:VENU BETTENCOURT DO 09/09/24 Current Medications Current Medications Medications (Trade) Dose Ordered Sig/Maru Route PRN Reason Start Time Stop Time Status Last Admin Cefepime HCl 50 ml @ 12.5 mls/hr DAILY IV 09/25/24 10:00 09/25/24 13:28 Nifedipine (Procardia Xl (Time-Release)) 30 mg DAILY PO 09/25/24 10:00 09/25/24 13:11 DC Hydralazine HCl (Apresoline Injection) 10 mg Q6HP PRN IV SBP>160 09/24/24 20:30 09/25/24 00:13 DC 09/24/24 21:38 Hydralazine HCl (Apresoline Injection) 10 mg Q4HPRN PRN IV SBP>160 09/25/24 00:15 09/25/24 11:22 Clonidine HCl (Catapres Tablet) 0.1 mg Q4HP PRN PO SBP>160 09/25/24 02:15 09/25/24 05:27 Lorazepam (Ativan Inj) 1 mg Q4HP PRN IV ANXIETY 09/25/24 11:45 09/25/24 16:00 Nicardipine HCl 250 ml @ 50 mls/hr Q5H IV 09/25/24 13:00 09/25/24 13:53 DC Levetiracetam 100 ml @ 400 mls/hr BID IV 09/25/24 22:00 Dextrose/Sodium Chloride 1,000 ml @ 30 mls/hr Q24H IV 09/25/24 13:15 09/25/24 16:01 Nicardipine/ Sodium Chloride 200 ml @ 50 mls/hr Q4H IV 09/25/24 14:00 Vital Signs Vital Signs Date Time Temp Pulse Resp B/P (MAP) Pulse Ox O2 Delivery O2 Flow Rate FiO2 09/25/24 16:00 14 95 Nasal Cannula* 1 24 09/25/24 16:00 58 09/25/24 13:29 162/81 09/25/24 08:02 97.7 97.7 Physical Exam Gen.: Patient lying in bed in no apparent distress. Breathing on room air. Head: Normocephalic, atraumatic. Eyes: EOMI/PERRLA. Ears: Normal hearing. Normal anatomy. Neck/trachea: Trachea midline, supple. Nose: Normal external anatomy. Mouth: Moist mucous membranes. Chest: Decreased air entry bilaterally. No wheezing or rhonchi. Cardiovascular: Positive S1, positive S2. Regular rate and rhythm. Abdomen: Positive bowel sounds in all 4 quadrants. Soft, non-tender, non- distended. : Deferred. Rectal: Deferred. Skin: Warm, dry. Intact. Extremities: 2+ radial pulses bilaterally. No lower extremity edema. Neuro: Awake, alert, oriented x3. No gross motor or sensory deficits. Cranial nerves II through XII intact. Gait not assessed. Labs/Diagnostic Data Labs Test 09/25/24 11:55 09/25/24 11:50 09/25/24 08:44 09/25/24 03:00 Range/Units Ammonia < 10 L 11-32 umol/L Blood Gas Specimen Type Arterial Blood Gas Sample Site Right radial Blood Gas Patient Temperature 37.0 Arterial Blood Date Drawn [id number] Arterial Blood pH 7.542 H 7.350-7.450 Arterial Blood Partial Pressure CO2 31.4 L 32.0-45.0 mmHg Arterial Blood Partial Pressure O2 86.3 83.0-108.0 mmHg Arterial Blood HCO3 26.4 21.0-28.0 mmol/L Arterial Blood Oxygen Saturation 96.4 94.0-98.0 % Arterial Blood Base Excess 4.0 H -2.0-3.0 mmol/L Arterial Blood Oxyhemoglobin 96.0 94.0-98.0 % Arterial Blood Carboxyhemoglobin 0.0 L 0.5-1.5 % Arterial Blood Methemoglobin 0.4 0.0-1.5 % Hipolito Test Yes Blood Gas Total Hemoglobin 9.80 L 12.0-16.0 g/dL Blood Gas Liter Flow 2.00 Blood Gas Modality Nasal cannula FiO2 % 28.0 POC Glucose 80 70-106 mg/dl White Blood Count 6.5 # 4.4-10.8 10^3/uL Red Blood Count 2.75 L 4.0-5.20 10^6/uL Hemoglobin 8.5 L 12.2-16.2 g/dL Hematocrit 25.0 L 36.0-46.0 % Mean Corpuscular Volume 91.1 80.0-100.0 fL Mean Corpuscular Hemoglobin 30.9 28.0-32.0 pg Mean Corpuscular Hemoglobin Concent 33.9 32.0-36.0 g/dL Red Cell Distribution Width 21.1 H 11.8-14.3 % Platelet Count 212 140-450 10^3/uL Mean Platelet Volume 8.2 6.9-10.8 fL Neutrophils (%) (Auto) 65.8 37.0-80.0 % Lymphocytes (%) (Auto) 21.2 10.0-50.0 % Monocytes (%) (Auto) 9.3 0.0-12.0 % Eosinophils (%) (Auto) 2.7 0.0-7.0 % Basophils (%) (Auto) 1.0 0.0-2.0 % Neutrophils # (Auto) 4.3 1.6-8.6 10 ^3/uL Lymphocytes # (Auto) 1.4 0.4-5.4 10 ^3/uL Monocytes # (Auto) 0.6 0-1.3 10 ^3/uL Eosinophils # (Auto) 0.2 0-0.8 10 ^3/uL Basophils # (Auto) 0.1 0-0.2 10 ^3/uL Nucleated Red Blood Cells 0.1 % Sodium Level 133 #L 136-145 mmol/L Potassium Level 4.4 3.5-5.1 mmol/L Chloride Level 97 L 98-107 mmol/L Carbon Dioxide Level 26 20-31 mmol/L Anion Gap 10 5-15 Blood Urea Nitrogen 20 9-23 mg/dL Creatinine 6.18 #H 0.550-1.02 mg/dL Glomerular Filtration Rate Calc 7 >90 mL/min BUN/Creatinine Ratio 3.2 L 10.0-20.0 Serum Glucose 75 74-106 mg/dL Calcium Level 9.1 8.7-10.4 mg/dL Phosphorus Level 4.0 2.4-5.1 mg/dL Magnesium Level 2.0 1.6-2.6 mg/dL Total Bilirubin 0.4 0.2-1.0 mg/dL Aspartate Amino Transferase (AST) 37 13-40 U/L Alanine Aminotransferase (ALT) 10 7-40 U/L Alkaline Phosphatase 117 H 46-116 U/L Total Protein 7.5 5.7-8.2 g/dL Albumin 3.3 3.2-4.8 g/dL Random Vancomycin Level 10.7 H 5-10 ug/mL Test 09/24/24 08:12 09/24/24 06:40 Range/Units Lactic Acid Level 0.9 0.4-2.0 mmol/L Troponin I High Sensitivity 10 </=34 ng/L B-Type Natriuretic Peptide 748.31 0-100 pg/mL Phenytoin (Dilantin) Level < 2.0 L 10-20 ug/mL Microbiology Date/Time Source Procedure Growth Status 09/24/24 17:59 Nose MRSA Screen - Final Complete 09/24/24 08:27 Blood Blood Culture - Preliminary NO GROWTH AFTER 24 HOURS OF INCUBATION. Resulted Assessment Impression: Acute hypoxic respiratory failure Pneumonia Rule out sepsis Anemia History of seizures Hypertension COPD ESRD on hemodialysis Nicotine dependence Plan: Supplemental oxygen PRN Titrate to keep O2 sats above 92%. Continue antibiotics Monitor WBC Antiepileptic Nicardipine drip PRN Monitor BP Follow up results of CT head. Monitor hemoglobin Hemodialysis per Nephro - removed 1.5 liters F/u Nephrology recommendations Monitor renal function. Monitor electrolytes. Supplement as necessary. Monitor ins and outs. DVT prophylaxis. Prognosis: Poor given patient's multiple co-morbidities. Rest of plan per hospitalist and other consultants. Thank you Dr. Jaramillo, for allowing me to participate in this patient's care. Further recommendations will depend on the patient's clinical course. Please do not hesitate to contact me if you have any questions or concerns. This medical document was created using an electronic medical record system with [employer] dictation system. Although these documentations are being carefully reviewed, there may still be some phonetic and typographical changes. The errors are purely typographical, due to imperfection on the software program, and do not reflect any compromise in the patient's medical care. Plan discussed with: Other (GEORGIE Suero/Dr. Jaramillo) BIANCA TAM MD September 25, 2024 19:15
[2024-09-25] MEDS: EPOETIN ALFA-EPBX 10,000 UNIT/1ML VIAL SC ONE (20:34)
[2024-09-25] MEDS: levETIRAcetam 500 mg/100ml 100 ML IV SCH (21:38)
[2024-09-26] VITALS (101 sets, daily range): BP systolic 102–209; BP diastolic 41–170; PULSE 49–86; RESP 14–114; TEMP 93.2–98.6; O2SAT 86–100
--- NOTE | 2024-09-26 02:11 | DVHINCON2 ---
DATE OF CONSULTATION: 09/25/2024 CONSULTING PHYSICIAN: Dr. Carreno. REASON FOR CONSULTATION: To manage dialysis treatment. HISTORY OF PRESENT ILLNESS: The patient is a 68-year-old -[place] female who is well known to me. She was here in the hospital until a few days ago. She was discharged home and had to be readmitted within 48 hours. She presented to the outpatient dialysis clinic and looked very weak. She was very hypotensive with a systolic blood pressure in the 70s. They could not give her, her dialysis treatments. They called the ambulance and sent her back to the hospital. She came here to the Emergency Room and was found to be hypotensive. She also had low oxygen saturation. So, she was admitted to Intensive Care Unit with suspected septic shock. She is now in the ICU on pressor support. She did not require mechanical ventilation. She appears to be very weak, but denies any other symptoms or complaints. PAST MEDICAL HISTORY: Please refer to the recent consultation and documents from last admission. She has a history of hypertension, seizure disorder, COPD, end-stage renal disease, anemia. SOCIAL HISTORY: She denied drinking alcohol, but she smokes cigarettes still. FAMILY HISTORY: Noncontributory. MEDICATIONS IN THE HOSPITAL: She is on vancomycin, acetaminophen, and Levophed drip. She is getting also cefepime. PHYSICAL EXAMINATION: VITAL SIGNS: Blood pressure is 171/70, heart rate is 77, respirations , temperature 98.1. GENERAL: The patient is an elderly female who appears to be chronically ill, in no acute distress, alert and oriented x2. HEENT: Pallor in mucosa and conjunctivae. LUNGS: Decreased , few scattered rhonchi. CARDIOVASCULAR: Regular rate. 1/6 systolic murmur. No pericardial rub. ABDOMEN: Soft. Mildly distended. Bowel sounds are normal in intensity and frequency. No organomegaly. No ascites. EXTREMITIES: No cyanosis or clubbing. No edema. NEUROLOGIC: Nonfocal. LABORATORY FINDINGS: Her sodium 133, potassium 4.2, creatinine 6.1, bicarbonate 26. Liver enzymes are normal. Albumin 3.3. Hemoglobin 8.5. On admission, hemoglobin was 7.6 . Blood cultures are pending. IMAGING DATA: Chest x-ray showed left subclavian dialysis catheter. No pneumothorax. No pulmonary edema. ASSESSMENT AND PLAN: * End-stage renal disease. * Admitted with hypotension, suspected septic shock. Currently, hemodynamics have improved. She is off vasopressors. We should monitor blood pressure closely and resume outpatient antihypertensives. She is scheduled to have dialysis today. * Anemia of renal disease. She received a blood transfusion. We will increase the Epogen with dialysis. Consider giving intravenous iron. * Cachexia, malnutrition. Please consult dietary for nutritional support. We will follow her during the hospitalization. Thank you for the consult. MD TALITA Rodriguez/SHYAM/SUBHASH TID: [id number] RECEIPT: [id number]
[2024-09-26 04:29] LABS: Basophils # (auto) 0.1 10 ^3/uL (0-0.2); Basophils % (auto) 1.3 % (0.0-2.0); Eosinophils # (auto) 0.2 10 ^3/uL (0-0.8); Eosinophils % (auto) 4.2 % (0.0-7.0); Hematocrit 26.7 % (36.0-46.0); Lymphocytes # (auto) 0.7 10 ^3/uL (0.4-5.4); Lymphocytes % (auto) 18.1 % (10.0-50.0); Mean Corpuscular Hemoglobin 30.5 pg (28.0-32.0); Mean Corpuscular Hgb Conc. 33.6 g/dL (32.0-36.0); Mean Corpuscular Volume 90.8 fL (80.0-100.0); Monocytes # (auto) 0.5 10 ^3/uL (0-1.3); Monocytes % (auto) 11.4 % (0.0-12.0); Neutrophils # (auto) 2.6 10 ^3/uL (1.6-8.6); Nucleated Red Blood Cells % 0.6 %; Platelet Count (auto) 163 10^3/uL (140-450); Red Blood Cells 2.94 10^6/uL (4.0-5.20); Red Cell Distribution Width 21.4 % (11.8-14.3)
[2024-09-26 04:31] LABS: Alanine Aminotransferase 15 U/L (7-40); Alkaline Phosphatase 111 U/L (46-116); Anion Gap 9 (5-15); BUN/Creatinine Ratio 2.8 (10.0-20.0); Blood Urea Nitrogen 13 mg/dL (9-23); Calcium 9.2 mg/dL (8.7-10.4); Carbon Dioxide 28 mmol/L (20-31); Glucose 93 mg/dL (74-106); Total Protein 7.2 g/dL (5.7-8.2)
[2024-09-26 04:32] LABS: Bilirubin, Total 0.5 mg/dL (0.2-1.0)
[2024-09-26 04:45] LABS: Chloride 97 mmol/L (98-107); Potassium 3.4 mmol/L (3.5-5.1); Sodium 134 mmol/L (136-145)
[2024-09-26 04:46] LABS: Albumin 3.1 g/dL (3.2-4.8); Aspartate Aminotransferase 63 U/L (13-40)
--- NOTE | 2024-09-26 13:08 | DVHPN2 ---
Progress Note - Dictate Date Seen: September 26, 2024 Medical Necessity Reason Pt with a Central, PICC or Fol: No vital signs Vital Sign Date Time Temp Pulse Resp B/P (MAP) Pulse Ox O2 Delivery O2 Flow Rate FiO2 09/26/24 11:58 15 97 Room Air* 0 21 09/26/24 11:58 67 09/26/24 11:48 141/70 (93) 09/26/24 08:03 97.6 97.6 Total Intake and Output 09/25/24 09/25/24 09/26/24 15:00 23:00 07:00 Intake Total 310 ml 540 ml Output Total 0 ml 0 ml Balance 310 ml 540 ml medications Current Medications Medications Dose Ordered Sig/Maru Route Start Time Stop Time Status Last Admin Dose Admin Norepinephrine Bitartrate 250 ml @ 3.75 mls/hr Q24H IV 09/24/24 07:45 09/24/24 07:45 3.75 MLS/HR Acetaminophen 650 mg Q6HP PRN PO 09/24/24 08:15 Vancomycin HCl 0 ml @ 0 mls/hr UD IV 09/24/24 08:15 Cefepime HCl 50 ml @ 12.5 mls/hr DAILY IV 09/25/24 10:00 09/26/24 10:35 12.5 MLS/HR Ergocalciferol 50,000 unit QWEEKLY PO 09/24/24 08:15 Hold Phenytoin Sodium 100 mg DAILY PO 09/24/24 10:00 09/24/24 10:00 100 MG Hydralazine HCl 10 mg Q4HPRN PRN IV 09/25/24 00:15 09/25/24 20:01 10 MG Clonidine HCl 0.1 mg Q4HP PRN PO 09/25/24 02:15 09/25/24 05:27 0.1 MG Lorazepam 1 mg Q4HP PRN IV 09/25/24 11:45 09/26/24 08:35 1 MG Levetiracetam 100 ml @ 400 mls/hr BID IV 09/25/24 22:00 09/26/24 08:35 400 MLS/HR Dextrose/Sodium Chloride 1,000 ml @ 30 mls/hr Q24H IV 09/25/24 13:15 09/25/24 16:01 30 MLS/HR Nicardipine/ Sodium Chloride 200 ml @ 50 mls/hr Q4H IV 09/25/24 14:00 09/26/24 10:35 50 MLS/HR objective Gen: NAD HEENT: NC,AT Lungs: CTA b/l Cardiac: RRR Abd: soft Ext: no edema laboratory and microbiology Laboratory Tests 09/26/24 03:47 Test 09/26/24 03:47 Range/Units Serum Glucose 93 74-106 mg/dL Assessment/Plan End-stage renal disease on HD via Rt arm AVG Hypertensive urgency Anemia of renal disease. Hypokalemia Hyponatremia Cachexia, malnutrition. Plan: Next HD on Friday . goal 2 L UF on cardene drip continue broad spectrum IV antibiotics f/u blood cultures JOSE M post HD as needed. goal Hb: 10-11 g/dl Plan discussed with: Other KEYLA VILLALBA MD September 26, 2024 13:08
--- NOTE | 2024-09-26 13:39 | DVHPN2 ---
Subjective very lethargic Changes from previous H/P or p: No Changes Objective Vitals Vital Signs Date Time Temp Pulse Resp B/P (MAP) Pulse Ox O2 Delivery O2 Flow Rate FiO2 09/26/24 11:58 15 97 Room Air* 0 21 09/26/24 11:58 67 09/26/24 11:48 141/70 (93) 09/26/24 08:03 97.6 97.6 Intake/Output Intake and Output 09/26/24 07:00 Intake Total 850 ml Output Total 0 ml Balance 850 ml Intake Oral 0 ml IV Total 850 ml Output Urine Total 0 ml # Bowel Movements 1 General Appearance: Other (lethargic and minimally responsive) HEENT: Atraumatic, EOMI Lungs: Clear to auscultation Cardiovascular: Regular rate, Normal S1 Neuro: Strength at 5/5 X4 ext Medications Current Medications Medications Dose Ordered Sig/Maru Route Start Time Stop Time Status Last Admin Dose Admin Norepinephrine Bitartrate 250 ml @ 3.75 mls/hr Q24H IV 09/24/24 07:45 09/24/24 07:45 3.75 MLS/HR Acetaminophen 650 mg Q6HP PRN PO 09/24/24 08:15 Vancomycin HCl 0 ml @ 0 mls/hr UD IV 09/24/24 08:15 Cefepime HCl 50 ml @ 12.5 mls/hr DAILY IV 09/25/24 10:00 09/26/24 10:35 12.5 MLS/HR Ergocalciferol 50,000 unit QWEEKLY PO 09/24/24 08:15 Hold Phenytoin Sodium 100 mg DAILY PO 09/24/24 10:00 09/24/24 10:00 100 MG Hydralazine HCl 10 mg Q4HPRN PRN IV 09/25/24 00:15 09/25/24 20:01 10 MG Clonidine HCl 0.1 mg Q4HP PRN PO 09/25/24 02:15 09/25/24 05:27 0.1 MG Lorazepam 1 mg Q4HP PRN IV 09/25/24 11:45 09/26/24 08:35 1 MG Levetiracetam 100 ml @ 400 mls/hr BID IV 09/25/24 22:00 09/26/24 08:35 400 MLS/HR Dextrose/Sodium Chloride 1,000 ml @ 30 mls/hr Q24H IV 09/25/24 13:15 09/25/24 16:01 30 MLS/HR Nicardipine/ Sodium Chloride 200 ml @ 50 mls/hr Q4H IV 09/25/24 14:00 09/26/24 10:35 50 MLS/HR Laboratory Results Laboratory Tests 09/26/24 03:47 Chemistry Test 09/26/24 03:47 Albumin 3.1 g/dL (3.2-4.8) L Calcium Level 9.2 mg/dL (8.7-10.4) Total Protein 7.2 g/dL (5.7-8.2) LFT Test 09/26/24 03:47 Alanine Aminotransferase (ALT) 15 U/L (7-40) Alkaline Phosphatase 111 U/L (46-116) Aspartate Amino Transferase (AST) 63 U/L (13-40) H Total Bilirubin 0.5 mg/dL (0.2-1.0) Microbiology Microbiology Date/Time Source Procedure Growth Status 09/24/24 17:59 Nose MRSA Screen - Final Complete 09/24/24 08:27 Blood Blood Culture - Preliminary NO GROWTH AFTER 48 HOURS OF INCUBATION. Resulted Assessment/Plan Assessment/Plan Acute hypoxic respiratory failure with pneumonia Rule out sepsis Acute hypovolemic shock Cardiomegaly Severe anemia Hypokalemia Tobacco use History of seizures History of hypertension History of COPD on oxygen History of ESRD on HD (M/W/F) Continue nicardipine drip Reviewed CT with no abnormalities of brain Change IV to keppra IV ABX Will consult neurology HD per nephrology Critical care time was 59 minutes Plan discussed with: Patient My Orders Orders - NAA CHOU MD Procedure Category Date Status Time Nicardipine Hcl In PHA 09/25/24 In Process Sodium Chlo (Cardene 14:00 * Neurology Consult CONS 09/26/24 Transmitted 10:55 [facility] Consult CONS 09/26/24 Transmitted 11:16 Date of Service: September 26, 2024 Billing Provider: NAA CHOU MD Common Visit Codes: [id number] CARE 30-74 MIN NAA CHOU MD September 26, 2024 13:39
--- NOTE | 2024-09-26 13:41 | DVHINCON2 ---
Date of service: September 26, 2024 Referring Physician primary team Family History: Unknown Unknown family medical history Allergies: Coded Allergies: Diphenhydramine (Verified Allergy, Unknown, 09/16/24) Gabapentin (Verified Allergy, Unknown, 09/16/24) Home Meds Active Scripts Valacyclovir Hcl (Valacyclovir Hcl) 500 Mg Tab, 1 TAB PO BID for 16 Days, #32 TAB [facility] 09/21/24 Ergocalciferol (VITAMIN D 65688 UNIT) 50,000 [place], [address] UNIT PO weekly for 12 Days, #12 CAP Prov[facility] 09/21/24 Levetiracetam (KEPPRA TABLET) 500 Mg Tb, 500 MG PO BID for 30 Days, #60 TAB 2 Refills Prov[facility] 09/21/24 Hydralazine HCl (Hydralazine HCl) 25 Mg Tab, 25 MG PO Q8HR for 30 Days, #90 TAB 2 Refills Prov[facility] 09/21/24 Nifedipine (Nifedipine Er) 60 Mg Tab, 1 TAB PO DAILY for 30 Days, #30 TAB 2 Refills Prov[facility] 09/21/24 Reported Medications Phenytoin Sodium (Dilantin) 100 Mg Cap 08/05/11 Discontinued Scripts Valacyclovir HCl (Valacyclovir HCl) 1 Gm Tab, 1 GM PO TID for 7 Days, #21 TAB Prov:SGVENU DO 09/09/24 Current Medications Current Medications Medications (Trade) Dose Ordered Sig/Maru Route PRN Reason Start Time Stop Time Status Last Admin Levetiracetam 100 ml @ 400 mls/hr BID IV 09/25/24 22:00 09/26/24 08:35 Vital Signs Vital Signs Date Time Temp Pulse Resp B/P (MAP) Pulse Ox O2 Delivery O2 Flow Rate FiO2 09/26/24 11:58 15 97 Room Air* 0 21 09/26/24 11:58 67 09/26/24 11:48 141/70 (93) 09/26/24 08:03 97.6 97.6 Labs/Diagnostic Data Labs Test 09/26/24 03:47 09/25/24 11:55 09/25/24 11:50 09/25/24 08:44 Range/Units White Blood Count 4.0 #L 4.4-10.8 10^3/uL Red Blood Count 2.94 L 4.0-5.20 10^6/uL Hemoglobin 9.0 L 12.2-16.2 g/dL Hematocrit 26.7 L 36.0-46.0 % Mean Corpuscular Volume 90.8 80.0-100.0 fL Mean Corpuscular Hemoglobin 30.5 28.0-32.0 pg Mean Corpuscular Hemoglobin Concent 33.6 32.0-36.0 g/dL Red Cell Distribution Width 21.4 H 11.8-14.3 % Platelet Count 163 140-450 10^3/uL Mean Platelet Volume 8.4 6.9-10.8 fL Neutrophils (%) (Auto) 65.0 37.0-80.0 % Lymphocytes (%) (Auto) 18.1 10.0-50.0 % Monocytes (%) (Auto) 11.4 0.0-12.0 % Eosinophils (%) (Auto) 4.2 0.0-7.0 % Basophils (%) (Auto) 1.3 0.0-2.0 % Neutrophils # (Auto) 2.6 1.6-8.6 10 ^3/uL Lymphocytes # (Auto) 0.7 0.4-5.4 10 ^3/uL Monocytes # (Auto) 0.5 0-1.3 10 ^3/uL Eosinophils # (Auto) 0.2 0-0.8 10 ^3/uL Basophils # (Auto) 0.1 0-0.2 10 ^3/uL Nucleated Red Blood Cells 0.6 % Sodium Level 134 L 136-145 mmol/L Potassium Level 3.4 L 3.5-5.1 mmol/L Chloride Level 97 L 98-107 mmol/L Carbon Dioxide Level 28 20-31 mmol/L Anion Gap 9 5-15 Blood Urea Nitrogen 13 9-23 mg/dL Creatinine 4.72 H 0.550-1.02 mg/dL Glomerular Filtration Rate Calc 10 >90 mL/min BUN/Creatinine Ratio 2.8 L 10.0-20.0 Serum Glucose 93 74-106 mg/dL Calcium Level 9.2 8.7-10.4 mg/dL Total Bilirubin 0.5 0.2-1.0 mg/dL Aspartate Amino Transferase (AST) 63 H 13-40 U/L Alanine Aminotransferase (ALT) 15 7-40 U/L Alkaline Phosphatase 111 46-116 U/L Total Protein 7.2 5.7-8.2 g/dL Albumin 3.1 L 3.2-4.8 g/dL Random Vancomycin Level 17.5 H 5-10 ug/mL Ammonia < 10 L 11-32 umol/L Blood Gas Specimen Type Arterial Blood Gas Sample Site Right radial Blood Gas Patient Temperature 37.0 Arterial Blood Date Drawn [id number] Arterial Blood pH 7.542 H 7.350-7.450 Arterial Blood Partial Pressure CO2 31.4 L 32.0-45.0 mmHg Arterial Blood Partial Pressure O2 86.3 83.0-108.0 mmHg Arterial Blood HCO3 26.4 21.0-28.0 mmol/L Arterial Blood Oxygen Saturation 96.4 94.0-98.0 % Arterial Blood Base Excess 4.0 H -2.0-3.0 mmol/L Arterial Blood Oxyhemoglobin 96.0 94.0-98.0 % Arterial Blood Carboxyhemoglobin 0.0 L 0.5-1.5 % Arterial Blood Methemoglobin 0.4 0.0-1.5 % Hipolito Test Yes Blood Gas Total Hemoglobin 9.80 L 12.0-16.0 g/dL Blood Gas Liter Flow 2.00 Blood Gas Modality Nasal cannula FiO2 % 28.0 POC Glucose 80 70-106 mg/dl Test 09/25/24 03:00 09/24/24 08:12 09/24/24 06:40 Range/Units Phosphorus Level 4.0 2.4-5.1 mg/dL Magnesium Level 2.0 1.6-2.6 mg/dL Lactic Acid Level 0.9 0.4-2.0 mmol/L Troponin I High Sensitivity 10 </=34 ng/L B-Type Natriuretic Peptide 748.31 0-100 pg/mL Phenytoin (Dilantin) Level < 2.0 L 10-20 ug/mL Microbiology Date/Time Source Procedure Growth Status 09/24/24 17:59 Nose MRSA Screen - Final Complete 09/24/24 08:27 Blood Blood Culture - Preliminary NO GROWTH AFTER 48 HOURS OF INCUBATION. Resulted Plan/Recommendation [facility] Note # Demographics Consult Type: General Neurology Patient Location: Inpatient First Name: Cheyrl Last Name: Adriana Date of : 1955 Age: 68 Gender: Female Facility: [facility] Time of Initial Page (): 09/26/2024 11:30 Time of Return Call (): 09/26/2024 11:30 # HPI History: 68 year old female with PMH of HTN, COPD, ESRD on Dialysis, Hep C, that I was requested to evaluate for a neurologic concern. The patient was originally admitted for generalized weakness and low blood pressure from the dialysis center. She was on a pressor and became hypertensive and is in the ICU for nicardipine drip to correct hypertension. She has been consistently agitated and trying to eat the orange caps off her lines. She has been getting Ativan intermittently. During my evaluation she only follows commands. She is frequently sticking out her tongue. She is on broad spectrum antibiotics. # Exam Time of Exam (): 09/26/2024 13:22 Vitals: vital signs reviewed Mental Status: - sleepy - disoriented to person - disoriented to place - disoriented to time Additional Neurologic Exam: agitated, only follows commands intermittently # ROS Neurologic: - see HPI # PMH-FH-SH Past Medical History: HTN, COPD, ESRD on Dialysis, Hep C # Data Time Head CT personally read by me (): 09/26/2024 13:[address]: - no bleed # Assessment Impression: 1. Encephalopathy 2. Agitation The patient has rather marked encephalopathy with agitation. This is likely multi-factorial from her complex medical history, including both infectious and metabolic etiologies. Given the major swings in blood pressure, it raises the concern for PRES. If able, an MRI Brain without contrast could be helpful. Also, benzodiazpenes can aggravate agitation. She may benefit from scheduled atypical anti-psychotic. # Plan Other: - If patient has any neurological deterioration please call me back immediately Additional Recommendations: SUMMARY: == consider MRI Brain without contrast if cooperation is possible to evaluate for PRES == start Seroquel 25mg QHS, and can uptitrate to twice daily to see if that improves agitation == avoid Ativan, consider Haldol for acute management == continue to assess and treat for metabolic, infectious, toxic etiologies of encephalopathy == I think DOUGH PANNER infection is less likely. But, if she worsens and no source of infection is found, consider LP Disposition: continue admission # Logistics Attestation of consult completion: The patient is located at: [facility]. Facility staff participated in the visit. I performed this telemedicin e visit from my offsite office utilizing interactive 2 way audio and visual telecommunication technology. Consent: Verbal consent was obtained from the patient and/or family for this encounter. Total time spent in telemedicine encounter: I spent 20 minutes reviewing clinical data and/or imaging, obtaining history, examining the patient, communicating with the onsite care team, and in preparation of this report. Critical Care time: 15 minutes of this encounter were critical care time. Due to a high probability of clinically significant, life-threatening neurologic deterioration, the patient required my highest level of preparedness to intervene emergently. I spent this critical care time managing the patient in conjunction with on-site providers who requested my consultation. In addition to the above, this critical care time included recommendation and review of studies, including imaging; arranging an urgent treatment and management plan with on-site providers; evaluation of patient's response to treatment; and documentation. This critical care time was performed to assess and manage the high probability of imminent, life-threatening deterioration that could result in neurologic catastrophe. # Demographics First Name: Cheryl Last Name: Adriana Facility: [facility] Plan discussed with: Other LINDA MOYER MD September 26, 2024 13:41
[2024-09-26] MEDS: ACETAMINOPHEN 325 MG TAB PO PRN (21:35)
--- NOTE | 2024-09-26 22:46 | DVHPN2 ---
Progress Note - Dictate Date Seen: September 26, 2024 Medical Necessity Reason Pt with a Central, PICC or Fol: No Subjective Patient seen and examined at bedside. Remains on supplemental oxygen Overnight events reviewed. vital signs Vital Sign Date Time Temp Pulse Resp B/P (MAP) Pulse Ox O2 Delivery O2 Flow Rate FiO2 09/26/24 21:36 134/69 09/26/24 17:45 72 09/26/24 17:45 18 96 Room Air* 0 21 09/26/24 17:03 93.2 199.8 Total Intake and Output 09/25/24 09/25/24 09/26/24 15:00 23:00 07:00 Intake Total 310 ml 540 ml Output Total 0 ml 0 ml Balance 310 ml 540 ml medications Current Medications Medications Dose Ordered Sig/Maru Route Start Time Stop Time Status Last Admin Dose Admin Norepinephrine Bitartrate 250 ml @ 3.75 mls/hr Q24H IV 09/24/24 07:45 09/24/24 07:45 3.75 MLS/HR Acetaminophen 650 mg Q6HP PRN PO 09/24/24 08:15 09/26/24 21:35 650 MG Vancomycin HCl 0 ml @ 0 mls/hr UD IV 09/24/24 08:15 Cefepime HCl 50 ml @ 12.5 mls/hr DAILY IV 09/25/24 10:00 09/26/24 10:35 12.5 MLS/HR Ergocalciferol 50,000 unit QWEEKLY PO 09/24/24 08:15 Hold Phenytoin Sodium 100 mg DAILY PO 09/24/24 10:00 09/24/24 10:00 100 MG Hydralazine HCl 10 mg Q4HPRN PRN IV 09/25/24 00:15 09/26/24 15:15 10 MG Clonidine HCl 0.1 mg Q4HP PRN PO 09/25/24 02:15 09/25/24 05:27 0.1 MG Lorazepam 1 mg Q4HP PRN IV 09/25/24 11:45 09/26/24 08:35 1 MG Levetiracetam 100 ml @ 400 mls/hr BID IV 09/25/24 22:00 09/26/24 21:38 400 MLS/HR Dextrose/Sodium Chloride 1,000 ml @ 30 mls/hr Q24H IV 09/25/24 13:15 09/26/24 21:38 30 MLS/HR Nicardipine/ Sodium Chloride 200 ml @ 50 mls/hr Q4H IV 09/25/24 14:00 09/26/24 21:36 50 MLS/HR objective Gen.: Patient lying in bed in no apparent distress. On supplemental oxygen. Head: Normocephalic, atraumatic. Eyes: EOMI/PERRLA. Ears: Normal hearing. Normal anatomy. Neck/trachea: Trachea midline, supple. Nose: Normal external anatomy. Mouth: Moist mucous membranes. Chest: Decreased air entry bilaterally. No wheezing or rhonchi. Cardiovascular: Positive S1, positive S2. Regular rate and rhythm. Abdomen: Positive bowel sounds in all 4 quadrants. Soft, non-tender, non- distended. : Deferred. Rectal: Deferred. Skin: Warm, dry. Intact. Extremities: 2+ radial pulses bilaterally. No lower extremity edema. Neuro: Awake, alert, oriented x3. No gross motor or sensory deficits. Cranial nerves II through XII intact. Gait not assessed. laboratory and microbiology Laboratory Tests 09/26/24 03:47 Test 09/26/24 03:47 Range/Units Serum Glucose 93 74-106 mg/dL Assessment/Plan Impression: Acute hypoxic respiratory failure Pneumonia Rule out sepsis Anemia History of seizures Hypertension COPD ESRD on hemodialysis Nicotine dependence Events: Remains on supplemental oxygen, 2 LPM NC Taper O2 as tolerated Continue antibiotics Nicardipine drip for BP control Monitor BP closely Antiepileptic medication Awaiting tele-neuro. Head CT reviewed; no evidence of acute intracranial hemorrhage, mass effect or hydrocephalus. Labs and imaging reviewed. Rest of plan as noted below. Plan: Supplemental oxygen Titrate to keep O2 sats above 92%. Continue antibiotics Monitor WBC Antiepileptic Nicardipine drip Monitor BP Monitor hemoglobin Hemodialysis per Nephro F/u Nephrology recommendations Monitor renal function. Monitor electrolytes. Supplement as necessary. Monitor ins and outs. DVT prophylaxis. Prognosis: Poor given patient's multiple co-morbidities. Condition: Critical Rest of plan per hospitalist and other consultants. A total of 35 minutes of critical care time was spent reviewing the patient record, examining the patient, making a diagnostic and therapeutic plan, discussing this plan with the medical personnel, following up on diagnostic studies and following the patient for clinical stability excluding any and all procedures. At least 50% of this time was spent in direct, [id number] contact. Thank you Dr. Jaramillo, for allowing me to participate in this patient's care. Further recommendations will depend on the patient's clinical course. Please do not hesitate to contact me if you have any questions or concerns. This medical document was created using an electronic medical record system with [employer] dictation system. Although these documentations are being carefully reviewed, there may still be some phonetic and typographical changes. The errors are purely typographical, due to imperfection on the software program, and do not reflect any compromise in the patient's medical care. Plan discussed with: Other (GEORGIE Lance) Critical Care Time(min): 35 BIANCA TAM MD September 26, 2024 22:46
[2024-09-27] VITALS (107 sets, daily range): BP systolic 117–187; BP diastolic 50–131; PULSE 59–95; RESP 13–42; TEMP 96.4–98.4; O2SAT 85–100
[2024-09-27 04:05] LABS: Basophils # (auto) 0.1 10 ^3/uL (0-0.2); Basophils % (auto) 1.4 % (0.0-2.0); Eosinophils # (auto) 0.3 10 ^3/uL (0-0.8); Eosinophils % (auto) 5.7 % (0.0-7.0); Hematocrit 24.4 % (36.0-46.0); Hemoglobin 8.5 g/dL (12.2-16.2); Lymphocytes # (auto) 0.9 10 ^3/uL (0.4-5.4); Lymphocytes % (auto) 19.9 % (10.0-50.0); Mean Corpuscular Hemoglobin 32.1 pg (28.0-32.0); Mean Corpuscular Hgb Conc. 35.1 g/dL (32.0-36.0); Mean Corpuscular Volume 91.5 fL (80.0-100.0); Monocytes # (auto) 0.6 10 ^3/uL (0-1.3); Monocytes % (auto) 13.8 % (0.0-12.0); Neutrophils # (auto) 2.7 10 ^3/uL (1.6-8.6); Neutrophils % (auto) 59.2 % (37.0-80.0); Nucleated Red Blood Cells % 0.4 %; Platelet Count (auto) 178 10^3/uL (140-450); Red Blood Cells 2.66 10^6/uL (4.0-5.20); Red Cell Distribution Width 21.4 % (11.8-14.3); White Blood Cell 4.6 10^3/uL (4.4-10.8)
--- NOTE | 2024-09-27 10:13 | DVHPN2 ---
Assessment/Plan Assessment/Plan ICU note 68 yo F with ESRD on HD sent from HD center due to hypotension. Poor historian, now off pressors, have hypertension, seem to be more altered, seen by teleneuro, likely press. Physical exam AOx3 but occasionally tangential JVD 1cm above clavicles PERLLA MMM Clear breath sounds S1 S2 RRR bradycardic Abdomen soft nontender RUE fistula labs ekg imaging reviewed POCUS done, good contractility, possible diastolic dysfunction, biatrial e nlargement, severe TR, elevated RVSP, IVC ~2cm with >50% collapsibility, no effusion assessment and plan acute metabolic encephalopathy, possible uremic cannot r/o pres syndrome HTN emergency hypovolemic shock ESRD on HD Anemia 2/2 CKD Hypokalemia Hypocalcemia HFpEF chronic diastolic HF chronic hypoxic RF on home O2 COPD group E pHTN? seizure dz smoker unlikely sepsis wheelchair bound c/w nicardipine, maintain map <100 start clonidine patch c/w home O2 supp 2LPM HD per renal empiric abx coverage, will deescalate if no evidence of infection, vanc and cefepime resume home meds TLC strict i/o not tolerating MRI for now will treat HTN speech eval haldol PRN, seroqeul nightly diet npo dvt ppx lovenox gi ppx not indicated condition critical prognosis poor full code critical care time 90 minutes Plan discussed with: Other My Orders Orders - TY OCHOA MD Procedure Category Date Status Time Haloperidol Lactate PHA 09/27/24 Transmitted Injection (Haldol) 10:15 Quetiapine Fumarate PHA 09/27/24 Logged Tablet (Seroquel Tab 22:[address] 09/27/24 Logged 10:08 Clonidine 0.1mg/24hr PHA 09/27/24 Logged 7day Patc (Catapres 10:15 Date of Service: September 27, 2024 Billing Provider: TY OCHOA MD Common Visit Codes: [id number] CARE 30-74 MIN TY OCHOA MD September 27, 2024 10:13
[2024-09-27] MEDS ORDERED: HALOPERIDOL LACTATE 5 MG/ML INJ VIAL IV PRN ×2 (10:15→10:30)
[2024-09-27] MEDS ORDERED: HALOPERIDOL LACTATE 5 MG/ML INJ VIAL IM PRN (10:30)
[2024-09-27] MEDS: SODIUM CHL 0.9% 1000 ML BAG XX ONE (10:50)
[2024-09-27] MEDS ORDERED: ACYCLOVIR 5MG/KG Q8HR PER RX 0 ML IV SCH (11:15)
[2024-09-27] MEDS ORDERED: MIDAZOLAM HCL 2MG/2ML 2ml VIAL (1mg/ml) ONE (13:05)
[2024-09-27] MEDS ORDERED: MORPHINE SULF PF 5 MG/10 ML VIAL ONE (13:05)
[2024-09-27] MEDS ORDERED: fentaNYL CITRATE 100 MCG/2 ML VL ONE (13:05)
[2024-09-27] MEDS ORDERED: PROPOFOL 10 MG/ML 20 ML IV ONE ×2 (13:08→13:29)
[2024-09-27] MEDS ORDERED: ONDANSETRON HCL 4 MG/2 ML VIAL ONE (13:52)
[2024-09-27] MEDS ORDERED: DexAMETHasone SOD PHOS 10MG/1ML VIAL INJ ONE (13:52)
[2024-09-27] MEDS: cloNIDine 0.1 mg/24hr 7 DAY PATCH TD ONE (14:22)
--- NOTE | 2024-09-27 14:50 | DVHPN2 ---
Progress Note - Dictate Date Seen: September 27, 2024 Medical Necessity Reason Pt with a Central, PICC or Fol: No Subjective no new symptoms vital signs Vital Sign Date Time Temp Pulse Resp B/P (MAP) Pulse Ox O2 Delivery O2 Flow Rate FiO2 09/27/24 14:26 20 100 Room Air* 0 21 09/27/24 14:26 78 09/27/24 14:22 166/71 09/27/24 12:03 96.4 96.4 Total Intake and Output 09/26/24 09/26/24 09/27/24 15:00 23:00 07:00 Intake Total 690.0 ml 560 ml 640 ml Output Total 0 ml 0 ml Balance 690.0 ml 560 ml 640 ml medications Current Medications Medications Dose Ordered Sig/Maru Route Start Time Stop Time Status Last Admin Dose Admin Acetaminophen 650 mg Q6HP PRN PO 09/24/24 08:15 09/26/24 21:35 650 MG Vancomycin HCl 0 ml @ 0 mls/hr UD IV 09/24/24 08:15 Cefepime HCl 50 ml @ 12.5 mls/hr DAILY IV 09/25/24 10:00 09/27/24 11:43 12.5 MLS/HR Ergocalciferol 50,000 unit QWEEKLY PO 09/24/24 08:15 Hold Phenytoin Sodium 100 mg DAILY PO 09/24/24 10:00 09/24/24 10:00 100 MG Levetiracetam 100 ml @ 400 mls/hr BID IV 09/25/24 22:00 09/27/24 11:41 400 MLS/HR Dextrose/Sodium Chloride 1,000 ml @ 30 mls/hr Q24H IV 09/25/24 13:15 09/26/24 21:38 30 MLS/HR Nicardipine/ Sodium Chloride 200 ml @ 50 mls/hr Q4H IV 09/25/24 14:00 09/27/24 05:42 50 MLS/HR Quetiapine Fumarate 25 mg HS PO 09/27/24 22:00 Haloperidol Lactate 5 mg Q8HP PRN IV 09/27/24 10:30 Acyclovir Sodium 0 ml @ 0 mls/hr PER PHARMACY IV 09/27/24 11:15 UNV objective Gen: NAD HEENT: NC,AT Lungs: CTA b/l Cardiac: RRR Abd: soft Ext: no edema laboratory and microbiology Laboratory Tests 09/27/24 03:40 09/26/24 03:47 Test 09/26/24 03:47 Range/Units Serum Glucose 93 74-106 mg/dL Assessment/Plan End-stage renal disease on HD via Rt arm AVG Hypertensive urgency Anemia of renal disease. Hypokalemia Hyponatremia Cachexia, malnutrition. Plan: HD today on cardene drip continue broad spectrum IV antibiotics f/u blood cultures JOSE M post HD as needed. goal Hb: 10-11 g/dl Dietary Evaluation Review Comments: 1. TPN if NPO >5 days 2. Advance diet as medically feasible 3. Continue current POC Expected Outcomes/Goals: to meet 75% estimated needs fu 2-3 days Plan discussed with: Other KEYLA VILLALBA MD September 27, 2024 14:50
[2024-09-27] MEDS: VANCOMYCIN 500mg/100mL PREMIX or KIT IV ONE (14:59)
[2024-09-27] MEDS: POTASSIUM CHL 20MEQ/100ML 100 ML IV ONE (14:59)
[2024-09-27] MEDS ORDERED: LABETALOL HCL 20 MG/4 ML VL IV PRN (17:45)
[2024-09-27] MEDS: ACYCLOVIR SOD 50MG/ML 250 MG in D5W 5% 100 ML IV SCH (18:22)
--- NOTE | 2024-09-27 18:37 | DVHPNRES ---
Progress Note Date Seen: September 27, 2024 Resident Creating Document: CAROLEE WOODRUFF RESIDENT Medical Necessity Reason Pt with a Central, PICC or Fol: No Subjective Review of Systems Cheryl Wright is a 68-year-old female with past medical history of seizures, hypertension, COPD on home oxygen, severe pulmonary hypertension, and end-stage renal disease on HD (M/W/F) presented to the ED with generalized weakness and low blood pressure. Patient reports that she was at the dialysis center and they had checked her blood pressure stated that it was low and called 911. Patient states that she uses oxygen at home but does not recall how much she also states that she does not have any more left. Patient denies any chest pain, shortness of breath, fever, chills, lightheadedness, weakness, dizziness, abdominal pain, nausea, vomiting, diarrhea, recent trauma or injury, recent sick contacts, or recent travels. Patient was seen and examined on the bedside. She is alert oriented x1. Underwent 1 session of dialysis today. Patient passed swallow evaluation and on pureed diet. Bood pressure is 160/84, stopped nicardipine drip and resumed oral antihypertensives nifedipine 60 mg p.o. daily, hydralazine 25 mg p.o. Q 8 and IV hydralazine 10 mg q.6 p.r.n. for systolic blood pressure more than 160. Objective vital signs Vital Sign Date Time Temp Pulse Resp B/P (MAP) Pulse Ox O2 Delivery O2 Flow Rate FiO2 09/27/24 17:45 78 22 160/84 (109) 89 09/27/24 16:30 Room Air* 0 21 09/27/24 12:03 96.4 96.4 Total Intake and Output 09/26/24 09/26/24 09/27/24 15:00 23:00 07:00 Intake Total 690.0 ml 560 ml 640 ml Output Total 0 ml 0 ml Balance 690.0 ml 560 ml 640 ml medications Current Medications Medications Dose Ordered Sig/Maru Route Start Time Stop Time Status Last Admin Dose Admin Acetaminophen 650 mg Q6HP PRN PO 09/24/24 08:15 09/26/24 21:35 650 MG Levetiracetam 100 ml @ 400 mls/hr BID IV 09/25/24 22:00 09/27/24 11:41 400 MLS/HR Nicardipine/ Sodium Chloride 200 ml @ 50 mls/hr Q4H IV 09/25/24 14:00 09/27/24 05:42 50 MLS/HR Haloperidol Lactate 5 mg Q8HP PRN IV 09/27/24 10:30 Acyclovir Sodium 0 ml @ 0 mls/hr PER PHARMACY IV 09/27/24 11:15 Acyclovir Sodium 250 mg/Dextrose 105 ml @ 105 mls/hr Q24H IV 09/27/24 18:00 09/27/24 18:22 105 MLS/HR Hydralazine HCl 25 mg Q8HR PO 09/27/24 22:00 Nifedipine 60 mg DAILY PO 09/28/24 10:00 Labetalol HCl 5 mg Q2HPRN PRN IV 09/27/24 17:45 Examination Physical examination: General Appearance: Alert, Oriented X1, Cooperative and on room air HEENT: Atraumatic, PERRLA, EOMI, Mucous membrane moist/pink Respiratory: bilateral decreased breath sounds and coarse crackles. Cardiovascular: Regular rate, Normal S1, Normal S2, Tricuspid regurgitation murmur present, no chest wall tenderness Abdominal: Distended and flanks are full, Normal bowel sounds, Soft, No tenderness, No hepatospenomegaly, No masses Extremities: No clubbing, No cyanosis, No edema, Normal pulses, No tenderness/swelling Skin: No breakdown, No significant lesion. Neuro: Strength at 5/5 X4 ext, Normal tone, Sensation intact, Cranial nerves 3- 12 NL, Reflexes 2+ Psych/Mental Status: Could not be assessed laboratory and microbiology Laboratory Tests 09/27/24 03:40 09/26/24 03:47 Test 09/26/24 03:47 Range/Units Serum Glucose 93 74-106 mg/dL Microbiology Date/Time Source Procedure Growth Status 09/24/24 17:59 Nose MRSA Screen - Final Complete 09/24/24 08:27 Blood Blood Culture - Preliminary NO GROWTH AFTER 72 HOURS OF INCUBATION. Resulted Labs and/or images reviewed: Labs reviewed by me, Image(s) reviewed by me Problem List/Assessment/Plan Problem List/Assessment/Plan Assessment and plan: NEURO: Hypertensive encephalopathy Possible viral meningitis Recent history of shingles Rule out stroke History of seizure disorder - CT head demonstrated No evidence of acute intracranial hemorrhage, mass effect or hydrocephalus. - EEG on 09/15 showed moderately abnormal EEG, this EEG seen in moderate cerebral dysfunction due to metabolic/hypoxic encephalopathy or medication effects. - IV Acyclovir 250 mg daily - MRI on 09/19 revealed no acute infarct, intracranial hemorrhage, mass effect, or hydrocephalus. - IV Keppra 500 mg b.i.d. CARDIOVASCULAR: Hypertensive emergency Severe pulmonary hypertension Severe tricuspid regurgitation RV overload likely due to severe volume overload and increased left ventricular end-diastolic pressure - Echocardiogram on 09/15 revealed LVEF 55-60% with abnormal septal motion due to RV pressure overload, grade II diastolic dysfunction, severe tricuspid regurgitation, and RVSP at 130 mmHg - Patient was on nicardipine drip and now stopped - Continue Nifedipine 60 mg daily, hydralazine 25 mg q.8 hours - IV hydralazine 10 mg q.6 p.r.n. PULMONARY: Severe pulmonary hypertension Possible bilateral pleural effusion likely due to volume overload Ruled out Gram-positive/Gram-negative pneumonia - CxR showed Cardiomegaly with pulmonary congestion and edema GASTROINTESTINAL: Ascites likely due to volume overload rule out chronic liver disease - Ultrasound of the abdomen showed Cholelithiasis without evidence of cholecystitis. Left pleural effusion. Trace ascites in the left upper quadrant and Hepatic steatosis. GENITOURINARY: ESRD on hemodialysis 3 times a week Vitamin D deficiency likely due to chronic renal disease - Patient had dialysis today - Strict I&O - Avoid nephrotoxic medication HEME: Chronic microcytic hypochromic anemia likely due to CKD Thrombocytopenia INFECTIOUS DISEASE: Recent history of shingles Possible viral meningitis - IV acyclovir 250 mg daily. - COVID ,flu and MRSA are pending - Preliminary Blood culture is negative for any growth in 24 hours of incubation. 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 GI prophylaxis: Protonix 40 mg po daily Bowel regimen: Code status: full code LINES/DRAINS/ACCESS: IV access: Peripheral line, Lt subclavian line placed on 09/24/24 Perdue catheter: DISPOSITION: ICU Critical care time spent more than 81 minutes, including patient care, chart review, and updating the family. Excluding any procedures. Patient's status discussed with RN Case discussed with Dr. Spence Plan discussed with: Other (RN) My Orders My Orders Orders - CAROLEE WOODRUFF RESIDENT Procedure Category Date Status Time Covid19 Antigen Cindy LAB 09/27/24 Logged Rapid Influenza A&B LAB 09/27/24 Logged 11:01 Acyclovir 5mg/Kg Q8hr PHA 09/27/24 In Process Per Rx (Zovirax) 11:15 Respiratory Culture BHARATH 09/27/24 Uncollected W/ Gs 11:05 * Swallow Request ST 09/27/24 Transmitted 13:42 Acyclovir Sod 50mg/Ml PHA 09/27/24 In Process (Zovirax) 18:00 Hydralazine Hcl PHA 09/27/24 In Process Tablet (Apresoline 22:00 Nifedipine Er PHA 09/28/24 In Process (Procardia Xl 10:00 Labetalol Hcl PHA 09/27/24 In Process (Labetalol Hcl) 17:45 Dietary Evaluation Review Comments: 1. TPN if NPO >5 days 2. Advance diet as medically feasible 3. Continue current POC Expected Outcomes/Goals: to meet 75% estimated needs fu 2-3 days Date of Service: September 27, 2024 Billing Provider: BRANDIE SPENCE MD Common Visit Codes: [id number] CARE 30-74 MIN, [id number] CARE-EACH +30MIN CAROLEE WOODRUFF RESIDENT September 27, 2024 18:37 BRANDIE SPENCE MD September 28, 2024 13:26
[2024-09-27] MEDS: EPOETIN ALFA-EPBX 4,000 UNIT/ML VIAL SC ONE (21:42)
[2024-09-27] MEDS: hydrALAZINE HCL 25 MG TAB PO SCH (21:43)
[2024-09-27] MEDS ORDERED: QUEtiapine FUMARATE 25 MG TAB PO SCH (22:00)
[2024-09-28] VITALS (53 sets, daily range): BP systolic 114–193; BP diastolic 48–98; PULSE 67–97; RESP 12–42; TEMP 98.2–98.9; O2SAT 89–100
[2024-09-28 03:52] LABS: Basophils # (auto) 0.1 10 ^3/uL (0-0.2); Hematocrit 23.6 % (36.0-46.0); Monocytes # (auto) 0.9 10 ^3/uL (0-1.3); Nucleated Red Blood Cells % 0.8 %; White Blood Cell 5.8 10^3/uL (4.4-10.8)
[2024-09-28 04:10] LABS: Alanine Aminotransferase 12 U/L (7-40); Alkaline Phosphatase 97 U/L (46-116); Anion Gap 8 (5-15); BUN/Creatinine Ratio 1.5 (10.0-20.0); Bilirubin, Total 0.4 mg/dL (0.2-1.0); Carbon Dioxide 30 mmol/L (20-31); Chloride 105 mmol/L (98-107); Magnesium 1.9 mg/dL (1.6-2.6); Potassium 3.5 mmol/L (3.5-5.1); Sodium 143 mmol/L (136-145); Total Protein 7.1 g/dL (5.7-8.2)
[2024-09-28 04:14] LABS: Basophils % (auto) 1.9 % (0.0-2.0); Eosinophils # (auto) 0.2 10 ^3/uL (0-0.8); Eosinophils % (auto) 4.3 % (0.0-7.0); Hemoglobin 7.9 g/dL (12.2-16.2); Lymphocytes # (auto) 1.3 10 ^3/uL (0.4-5.4); Lymphocytes % (auto) 22.2 % (10.0-50.0); Mean Corpuscular Hemoglobin 30.8 pg (28.0-32.0); Mean Corpuscular Hgb Conc. 33.6 g/dL (32.0-36.0); Mean Corpuscular Volume 91.7 fL (80.0-100.0); Monocytes % (auto) 15.8 % (0.0-12.0); Neutrophils # (auto) 3.3 10 ^3/uL (1.6-8.6); Neutrophils % (auto) 55.8 % (37.0-80.0); Platelet Count (auto) 151 10^3/uL (140-450); Red Blood Cells 2.58 10^6/uL (4.0-5.20); Red Cell Distribution Width 20.8 % (11.8-14.3)
[2024-09-28 04:45] LABS: Aspartate Aminotransferase 56 U/L (13-40); Blood Urea Nitrogen 6 mg/dL (9-23); Calcium 8.6 mg/dL (8.7-10.4); Glucose 74 mg/dL (74-106)
[2024-09-28 07:51] LABS: COVID19 ANTIGEN SOFIA FIA NEGATIVE (NEGATIVE)
[2024-09-28] MEDS: hydrALAZINE HCL 20 MG/ML VL IV PRN (08:35)
[2024-09-28 09:26] LABS: Rapid Influenza A Negative (Negative); Rapid Influenza B Negative (Negative)
[2024-09-28] MEDS ORDERED: NIFEdipine ER 30 MG TAB PO SCH (10:00)
[2024-09-28] MEDS: NIFEdipine ER 30 MG TAB PO SCH (10:00)
[2024-09-28] MEDS: levETIRAcetam 500 MG TAB PO SCH (10:11)
[2024-09-28] MEDS: PANTOPRAZOLE 40 MG TAB PO ONE (10:16)
[2024-09-28] MEDS: HEPARIN SODIUM (PORCINE) 5000 UNITS/ML 1ML VIAL SC SCH (10:33)
--- NOTE | 2024-09-28 11:38 | DVHPN2 ---
Progress Note - Dictate Date Seen: September 28, 2024 Medical Necessity Reason Pt with a Central, PICC or Fol: No Subjective no new symptoms vital signs Vital Sign Date Time Temp Pulse Resp B/P (MAP) Pulse Ox O2 Delivery O2 Flow Rate FiO2 09/28/24 10:41 163/71 09/28/24 06:49 82 21 96 09/28/24 05:56 Nasal Cannula* 1 24 09/28/24 04:04 98.2 98.2 Total Intake and Output 09/27/24 09/27/24 09/28/24 15:00 23:00 07:00 Intake Total 475.0 ml 380.0 ml 520 ml Output Total 0 ml 0 ml Balance 475.0 ml 380.0 ml 520 ml medications Current Medications Medications Dose Ordered Sig/Maru Route Start Time Stop Time Status Last Admin Dose Admin Acetaminophen 650 mg Q6HP PRN PO 09/24/24 08:15 09/26/24 21:35 650 MG Haloperidol Lactate 5 mg Q8HP PRN IV 09/27/24 10:30 Acyclovir Sodium 0 ml @ 0 mls/hr PER PHARMACY IV 09/27/24 11:15 Acyclovir Sodium 250 mg/Dextrose 105 ml @ 105 mls/hr Q24H IV 09/27/24 18:00 09/27/24 18:22 105 MLS/HR Hydralazine HCl 10 mg Q6HP PRN IV 09/27/24 19:00 09/28/24 08:35 10 MG Levetiracetam 500 mg BID PO 09/28/24 10:00 09/28/24 10:11 500 MG Pantoprazole Sodium 40 mg DAILY@0600 PO 09/29/24 06:00 Heparin Sodium (Porcine) 5,000 units Q12HR SC 09/28/24 10:00 09/28/24 10:33 5,000 UNITS Hydralazine HCl 50 mg Q8HR PO 09/28/24 09:30 Nifedipine 90 mg DAILY PO 09/28/24 09:30 09/28/24 10:41 90 MG objective Gen: NAD HEENT: NC,AT Lungs: CTA b/l Cardiac: RRR Abd: soft Ext: no edema laboratory and microbiology Laboratory Tests 09/28/24 03:26 Test 09/28/24 03:26 Range/Units Serum Glucose 74 74-106 mg/dL Assessment/Plan End-stage renal disease on HD via Rt arm AVG Hypertensive urgency Anemia of renal disease. Hypokalemia Hyponatremia Cachexia, malnutrition. Plan: s/p HD Friday Next HD on Friday cardene drip has been discontinued continue broad spectrum IV antibiotics f/u blood cultures JOSE M post HD as needed. goal Hb: 10-11 g/dl Dietary Evaluation Review Comments: 1. TPN if NPO >5 days 2. Advance diet as medically feasible 3. Continue current POC Expected Outcomes/Goals: to meet 75% estimated needs fu 2-3 days Plan discussed with: Other KEYLA VILLALBA MD September 28, 2024 11:38
[2024-09-28] MEDS ORDERED: cloNIDine 0.1 mg/24hr 7 DAY PATCH TD ONE (12:00)
[2024-09-28] MEDS: hydrALAZINE HCL 25 MG TAB PO SCH (13:02)
--- NOTE | 2024-09-28 15:24 | ECG ---
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
[2024-09-28] MEDS: hydrALAZINE HCL 20 MG/ML VL IV ONE (17:01)
[2024-09-28] MEDS: PHENYTOIN SODIUM 100 MG CAP PO ONE (17:23)
--- NOTE | 2024-09-28 18:20 | DVHPNRES ---
Progress Note Date Seen: September 28, 2024 Resident Creating Document: CAROLEE WOODRUFF RESIDENT Medical Necessity Reason Pt with a Central, PICC or Fol: No Subjective Review of Systems Cheryl Wright is a 68-year-old female with past medical history of seizures, hypertension, COPD on home oxygen, severe pulmonary hypertension, and end-stage renal disease on HD (M/W/F) presented to the ED with generalized weakness and low blood pressure. Patient reports that she was at the dialysis center and they had checked her blood pressure stated that it was low and called 911. Patient states that she uses oxygen at home but does not recall how much she also states that she does not have any more left. Patient denies any chest pain, shortness of breath, fever, chills, lightheadedness, weakness, dizziness, abdominal pain, nausea, vomiting, diarrhea, recent trauma or injury, recent sick contacts, or recent travels. Patient was seen and examined on the bedside. She is alert oriented x2. Had hemodialysis yesterday . Patient passed swallow evaluation and on pureed diet. Blood pressure is still elevated, and started on nifedipine 90 mg p.o. daily, hydralazine 50 mg p.o. Q 8 , carvedilol 6.25 mg b.i.d. and IV hydralazine 10 mg q.6 p.r.n. for systolic blood pressure more than 160. Patient is downgraded to telemetry. Objective vital signs Vital Sign Date Time Temp Pulse Resp B/P (MAP) Pulse Ox O2 Delivery O2 Flow Rate FiO2 09/28/24 17:01 173/82 09/28/24 16:00 79 09/28/24 16:00 98.2 20 97 98.2 09/28/24 16:00 Nasal Cannula* 1 24 Total Intake and Output 09/27/24 09/27/24 09/28/24 15:00 23:00 07:00 Intake Total 475.0 ml 380.0 ml 520 ml Output Total 0 ml 0 ml Balance 475.0 ml 380.0 ml 520 ml medications Current Medications Medications Dose Ordered Sig/Maru Route Start Time Stop Time Status Last Admin Dose Admin Acetaminophen 650 mg Q6HP PRN PO 09/24/24 08:15 09/26/24 21:35 650 MG Hydralazine HCl 10 mg Q6HP PRN IV 09/27/24 19:00 09/28/24 15:31 10 MG Levetiracetam 500 mg BID PO 09/28/24 10:00 09/28/24 10:11 500 MG Pantoprazole Sodium 40 mg DAILY@0600 PO 09/29/24 06:00 Heparin Sodium (Porcine) 5,000 units Q12HR SC 09/28/24 10:00 09/28/24 10:33 5,000 UNITS Hydralazine HCl 50 mg Q8HR PO 09/28/24 09:30 09/28/24 13:02 50 MG Nifedipine 90 mg DAILY PO 09/28/24 09:30 09/28/24 10:41 90 MG Phenytoin Sodium 100 mg DAILY PO 09/29/24 10:00 Carvedilol 6.25 mg Q12HR PO 09/28/24 22:00 Examination Physical examination: General Appearance: Alert, Oriented X2, Cooperative and on room air HEENT: Atraumatic, PERRLA, EOMI, Mucous membrane moist/pink Respiratory: bilateral decreased breath sounds and coarse crackles. Cardiovascular: Regular rate, Normal S1, Normal S2, Tricuspid regurgitation murmur present, no chest wall tenderness Abdominal: Distended and flanks are full, Normal bowel sounds, Soft, No tenderness, No hepatospenomegaly, No masses Extremities: No clubbing, No cyanosis, No edema, Normal pulses, No tenderness/swelling Skin: No breakdown, No significant lesion. Neuro: Strength at 5/5 X4 ext, Normal tone, Sensation intact, Cranial nerves 3- 12 NL, Reflexes 2+ Psych/Mental Status: Could not be assessed laboratory and microbiology Laboratory Tests 09/28/24 03:26 Test 09/28/24 03:26 Range/Units Serum Glucose 74 74-106 mg/dL Microbiology Date/Time Source Procedure Growth Status 09/24/24 17:59 Nose MRSA Screen - Final Complete 09/24/24 08:27 Blood Blood Culture - Preliminary NO GROWTH AFTER 72 HOURS OF INCUBATION. Resulted Problem List/Assessment/Plan Problem List/Assessment/Plan Assessment and plan: NEURO: Hypertensive encephalopathy Possible viral encephalitis Recent history of shingles Rule out stroke History of seizure disorder - CT head demonstrated No evidence of acute intracranial hemorrhage, mass effect or hydrocephalus. - EEG on 09/15 showed moderately abnormal EEG, this EEG seen in moderate cerebral dysfunction due to metabolic/hypoxic encephalopathy or medication effects. - MRI on 09/19 revealed no acute infarct, intracranial hemorrhage, mass effect, or hydrocephalus. - IV Keppra 500 mg b.i.d. CARDIOVASCULAR: Hypertensive emergency Severe pulmonary hypertension Severe tricuspid regurgitation RV overload likely due to severe volume overload and increased left ventricular end-diastolic pressure - Echocardiogram on 09/15 revealed LVEF 55-60% with abnormal septal motion due to RV pressure overload, grade II diastolic dysfunction, severe tricuspid regurgitation, and RVSP at 130 mmHg - Patient was on nicardipine drip and now stopped - Continue Nifedipine 90 mg daily, hydralazine 5omg q.8 hours and carvedilol 6.25 mg b.i.d. - IV hydralazine 10 mg q.6 p.r.n. PULMONARY: Severe pulmonary hypertension Possible bilateral pleural effusion likely due to volume overload Ruled out Gram-positive/Gram-negative pneumonia - CxR showed Cardiomegaly with pulmonary congestion and edema GASTROINTESTINAL: Ascites likely due to volume overload rule out chronic liver disease - Ultrasound of the abdomen showed Cholelithiasis without evidence of cholecystitis. Left pleural effusion. Trace ascites in the left upper quadrant and Hepatic steatosis. GENITOURINARY: ESRD on hemodialysis 3 times a week Vitamin D deficiency likely due to chronic renal disease - Patient had dialysis yesterday - Strict I&O - Avoid nephrotoxic medication HEME: Chronic microcytic hypochromic anemia likely due to CKD Thrombocytopenia INFECTIOUS DISEASE: Recent history of shingles Possible viral encephalitis - COVID ,flu negative and MRSA pending - Preliminary Blood culture is negative for any growth in 24 hours of incubation. 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 GI prophylaxis: Protonix 40 mg po daily Bowel regimen: Code status: full code LINES/DRAINS/ACCESS: IV access: Peripheral line, Lt subclavian line placed on 09/24/24 Perdue catheter: DISPOSITION: ICU Critical care time spent more than 41 minutes. Patient's status discussed with RN Case discussed with Dr. Spence Plan discussed with: Other (RN) My Orders My Orders Orders - CAROLEE WOODRUFF Procedure Category Date Status Time Hydralazine Injection PHA 09/27/24 In Process (Apresoline Inject 19:00 Levetiracetam Tablet PHA 09/28/24 In Process (Keppra Tablet) 10:00 Pantoprazole Tablet PHA 09/29/24 In Process (Protonix Tablet) 06:00 Heparin Sodium PHA 09/28/24 In Process (Porcine) 10:00 Hydralazine Hcl PHA 09/28/24 In Process Tablet (Apresoline 09:30 Nifedipine Er PHA 09/28/24 In Process (Procardia Xl 09:30 Pt Request For Service PT 09/28/24 Logged 15:44 Transfer Orders XFER 09/28/24 Transmitted 15:44 Phenytoin Capsule PHA 09/29/24 In Process (Dilantin Capsule) 10:00 Dietary Evaluation Review Comments: 1. TPN if NPO >5 days 2. Advance diet as medically feasible 3. Continue current POC Expected Outcomes/Goals: to meet 75% estimated needs fu 2-3 days Date of Service: September 28, 2024 Billing Provider: BRANDIE SPENCE MD Common Visit Codes: [id number] CARE 30-74 MIN CAROLEE WOODRUFF RESIDENT September 28, 2024 18:20 BRANDIE SPENCE MD September 29, 2024 16:36
[2024-09-28 21:04] LABS: Red Blood Cells 2.87 10^6/uL (4.0-5.20)
[2024-09-28 21:09] LABS: Basophils # (auto) 0.2 10 ^3/uL (0-0.2); Basophils % (auto) 3.4 % (0.0-2.0); Eosinophils # (auto) 0.4 10 ^3/uL (0-0.8); Eosinophils % (auto) 7.2 % (0.0-7.0); Hematocrit 26.6 % (36.0-46.0); Lymphocytes % (auto) 20.4 % (10.0-50.0); Mean Corpuscular Hemoglobin 31.2 pg (28.0-32.0); Mean Corpuscular Hgb Conc. 33.6 g/dL (32.0-36.0); Mean Corpuscular Volume 92.7 fL (80.0-100.0); Monocytes # (auto) 0.8 10 ^3/uL (0-1.3); Monocytes % (auto) 17.4 % (0.0-12.0); Neutrophils # (auto) 2.5 10 ^3/uL (1.6-8.6); Neutrophils % (auto) 51.6 % (37.0-80.0); Nucleated Red Blood Cells % 1.5 %; Platelet Count (auto) 179 10^3/uL (140-450); White Blood Cell 4.9 10^3/uL (4.4-10.8)
[2024-09-28 21:11] LABS: Red Cell Distribution Width 21.8 % (11.8-14.3)
[2024-09-28] MEDS: CARVEDILOL 3.125 MG TAB PO SCH (22:16)
[2024-09-29] VITALS (18 sets, daily range): BP systolic 94–143; BP diastolic 54–75; PULSE 67–79; RESP 15–27; TEMP 96.5–98.2; O2SAT 92–100
[2024-09-29 03:42] LABS: Hematocrit 26.3 % (36.0-46.0); Hemoglobin 8.6 g/dL (12.2-16.2); Mean Corpuscular Hgb Conc. 32.5 g/dL (32.0-36.0); Mean Corpuscular Volume 95.3 fL (80.0-100.0); Platelet Count (auto) 160 10^3/uL (140-450); Red Blood Cells 2.76 10^6/uL (4.0-5.20); Red Cell Distribution Width 22.4 % (11.8-14.3); White Blood Cell 3.9 10^3/uL (4.4-10.8)
[2024-09-29 03:56] LABS: Chloride 106 mmol/L (98-107); Potassium 3.9 mmol/L (3.5-5.1); Sodium 143 mmol/L (136-145)
[2024-09-29 03:57] LABS: Anion Gap 12 (5-15); Carbon Dioxide 25 mmol/L (20-31)
[2024-09-29 03:58] LABS: Calcium 9.4 mg/dL (8.7-10.4)
[2024-09-29 04:03] LABS: BUN/Creatinine Ratio 1.2 (10.0-20.0); Glucose 85 mg/dL (74-106)
[2024-09-29 04:06] LABS: Band Neutrophils % (manual) 0; Basophils % (manual) 0 (0.0-2.0); Blast Cells 0; Metamyelocytes % 0; Myelocytes % 0; Promyelocytes % 0; Reactive Lymphocytes 0
[2024-09-29 04:09] LABS: Blood Urea Nitrogen 7 mg/dL (9-23)
[2024-09-29 05:27] LABS: Anisocytosis Slight; Eosinophils % (manual) 5 (0-7); Lymphocytes % (manual) 28 (10.0-50.0); Monocytes % (manual) 12 (0-12); Platelet Estimate Adequate
[2024-09-29] MEDS: PANTOPRAZOLE 40 MG TAB PO SCH (06:18)
[2024-09-29] MEDS: PHENYTOIN SODIUM 100 MG CAP PO SCH (08:42)
[2024-09-29] MEDS ORDERED: ONDANSETRON HCL 4 MG/2 ML VIAL IV PRN (09:15)
[2024-09-29] MEDS: CARVEDILOL 3.125 MG TAB PO ONE (16:18)
--- NOTE | 2024-09-29 16:18 | DVHPN2 ---
Progress Note - Dictate Date Seen: September 29, 2024 Medical Necessity Reason Pt with a Central, PICC or Fol: No Subjective More alert and oriented NAD vital signs Vital Sign Date Time Temp Pulse Resp B/P (MAP) Pulse Ox O2 Delivery O2 Flow Rate FiO2 09/29/24 12:30 96.5 72 18 138/67 (90) 97 96.5 09/29/24 08:00 Nasal Cannula* 2 28 Total Intake and Output 09/28/24 09/28/24 09/29/24 15:00 23:00 07:00 Intake Total 150 ml 480 ml Output Total 0 ml Balance 150 ml 480 ml medications Current Medications Medications Dose Ordered Sig/Maru Route Start Time Stop Time Status Last Admin Dose Admin Acetaminophen 650 mg Q6HP PRN PO 09/24/24 08:15 09/29/24 12:04 650 MG Levetiracetam 500 mg BID PO 09/28/24 10:00 09/29/24 08:42 500 MG Pantoprazole Sodium 40 mg DAILY@0600 PO 09/29/24 06:00 09/29/24 06:18 40 MG Heparin Sodium (Porcine) 5,000 units Q12HR SC 09/28/24 10:00 09/29/24 08:51 5,000 UNITS Hydralazine HCl 50 mg Q8HR PO 09/28/24 09:30 09/29/24 06:18 50 MG Nifedipine 90 mg DAILY PO 09/28/24 09:30 09/29/24 08:42 90 MG Phenytoin Sodium 100 mg DAILY PO 09/29/24 10:00 09/29/24 08:42 100 MG Carvedilol 6.25 mg Q12HR PO 09/28/24 22:00 09/29/24 08:41 6.25 MG Ondansetron HCl 4 mg Q8HPRN PRN IV 09/29/24 09:15 objective Alert x 2 NAD Lungs CTA CV: RR, no pericardial rub Abdomen: soft, Non tender No leg edema laboratory and microbiology Laboratory Tests 09/29/24 03:12 Test 09/29/24 03:12 Range/Units Serum Glucose 85 74-106 mg/dL Problem List End-stage renal disease on HD via Rt arm AVG Hypertensive urgency Anemia of renal disease. Hypokalemia Hyponatremia Cachexia, malnutrition. Plan: HD today, continue MWF schedule continue broad spectrum IV antibiotics JOSE M post HD as needed. goal Hb: 10-11 g/dl DC planning Dietary Evaluation Review Comments: 1. TPN if NPO >5 days 2. Advance diet as medically feasible 3. Continue current POC Expected Outcomes/Goals: to meet 75% estimated needs fu 2-3 days Plan discussed with: Patient, Other JEROME MAN MD September 29, 2024 16:18
--- NOTE | 2024-09-29 18:52 | DVHPNRES ---
Progress Note Date Seen: September 29, 2024 Resident Creating Document: CAROLEE WOODRUFF RESIDENT Medical Necessity Reason Pt with a Central, PICC or Fol: No Subjective Review of Systems Cheryl Wright is a 68-year-old female with past medical history of seizures, hypertension, COPD on home oxygen, severe pulmonary hypertension, and end-stage renal disease on HD (M/W/F) presented to the ED with generalized weakness and low blood pressure. Patient reports that she was at the dialysis center and they had checked her blood pressure stated that it was low and called 911. Patient states that she uses oxygen at home but does not recall how much she also states that she does not have any more left. Patient denies any chest pain, shortness of breath, fever, chills, lightheadedness, weakness, dizziness, abdominal pain, nausea, vomiting, diarrhea, recent trauma or injury, recent sick contacts, or recent travels. Patient was seen and examined on the bedside. She is alert oriented x2. She underwent hemodialysis today and 2L removed. The patient is on pureed diet and blood pressure is now controlled with nifedipine 90 mg daily, hydralazine 50 mg Q 8 hours, carvedilol 6.25 mg b.i.d. and IV hydralazine 10 mg q.6 p.r.n. Objective vital signs Vital Sign Date Time Temp Pulse Resp B/P (MAP) Pulse Ox O2 Delivery O2 Flow Rate FiO2 09/29/24 16:34 96.6 69 18 133/63 (86) 100 96.6 09/29/24 08:00 Nasal Cannula* 2 28 Total Intake and Output 09/28/24 09/28/24 09/29/24 15:00 23:00 07:00 Intake Total 150 ml 480 ml Output Total 0 ml Balance 150 ml 480 ml medications Current Medications Medications Dose Ordered Sig/Maru Route Start Time Stop Time Status Last Admin Dose Admin Acetaminophen 650 mg Q6HP PRN PO 09/24/24 08:15 09/29/24 12:04 650 MG Levetiracetam 500 mg BID PO 09/28/24 10:00 09/29/24 08:42 500 MG Pantoprazole Sodium 40 mg DAILY@0600 PO 09/29/24 06:00 09/29/24 06:18 40 MG Heparin Sodium (Porcine) 5,000 units Q12HR SC 09/28/24 10:00 09/29/24 08:51 5,000 UNITS Hydralazine HCl 50 mg Q8HR PO 09/28/24 09:30 09/29/24 06:18 50 MG Nifedipine 90 mg DAILY PO 09/28/24 09:30 09/29/24 08:42 90 MG Phenytoin Sodium 100 mg DAILY PO 09/29/24 10:00 09/29/24 08:42 100 MG Carvedilol 6.25 mg Q12HR PO 09/28/24 22:00 09/29/24 08:41 6.25 MG Ondansetron HCl 4 mg Q8HPRN PRN IV 09/29/24 09:15 Examination Physical examination: General Appearance: Alert, Oriented X2, Cooperative and on room air HEENT: Atraumatic, PERRLA, EOMI, Mucous membrane moist/pink Respiratory: bilateral decreased breath sounds and coarse crackles. Cardiovascular: Regular rate, Normal S1, Normal S2, Tricuspid regurgitation murmur present, no chest wall tenderness Abdominal: Distended and flanks are full, Normal bowel sounds, Soft, No tenderness, No hepatospenomegaly, No masses Extremities: No clubbing, No cyanosis, No edema, Normal pulses, No tenderness/swelling Skin: No breakdown, No significant lesion. Neuro: Strength at 5/5 X4 ext, Normal tone, Sensation intact, Cranial nerves 3- 12 NL, Reflexes 2+ Psych/Mental Status: Could not be assessed laboratory and microbiology Laboratory Tests 09/29/24 03:12 Test 09/29/24 03:12 Range/Units Serum Glucose 85 74-106 mg/dL Microbiology Date/Time Source Procedure Growth Status 09/28/24 00:00 Sputum Expectorated Sputum Gram Stain - Final Resulted 09/28/24 00:00 Sputum Expectorated Sputum Respiratory Culture - Preliminary Resulted 09/24/24 17:59 Nose MRSA Screen - Final Complete 09/24/24 08:27 Blood Blood Culture - Final NO GROWTH AFTER 5 DAYS OF INCUBATION. Complete Labs and/or images reviewed: Labs reviewed by me, Image(s) reviewed by me Problem List/Assessment/Plan Problem List/Assessment/Plan Assessment and plan: NEURO: Hypertensive encephalopathy R/O Press syndrome Possible viral encephalitis Recent history of shingles Rule out stroke History of seizure disorder - CT head demonstrated No evidence of acute intracranial hemorrhage, mass effect or hydrocephalus. - EEG on 09/15 showed moderately abnormal EEG, this EEG seen in moderate cerebral dysfunction due to metabolic/hypoxic encephalopathy or medication effects. - MRI on 09/19 revealed no acute infarct, intracranial hemorrhage, mass effect, or hydrocephalus. - IV Keppra 500 mg b.i.d. CARDIOVASCULAR: Hypertensive emergency Severe pulmonary hypertension Severe tricuspid regurgitation RV overload likely due to severe volume overload and increased left ventricular end-diastolic pressure - Echocardiogram on 09/15 revealed LVEF 55-60% with abnormal septal motion due to RV pressure overload, grade II diastolic dysfunction, severe tricuspid regurgitation, and RVSP at 130 mmHg - Patient was on nicardipine drip and now stopped - Continue Nifedipine 90 mg daily, hydralazine 5omg q.8 hours and carvedilol 6.25 mg b.i.d. - IV hydralazine 10 mg q.6 p.r.n. PULMONARY: Severe pulmonary hypertension Possible bilateral pleural effusion likely due to volume overload Ruled out Gram-positive/Gram-negative pneumonia - CxR showed Cardiomegaly with pulmonary congestion and edema GASTROINTESTINAL: Ascites likely due to volume overload rule out chronic liver disease - Ultrasound of the abdomen showed Cholelithiasis without evidence of cholecystitis. Left pleural effusion. Trace ascites in the left upper quadrant and Hepatic steatosis. GENITOURINARY: ESRD on hemodialysis 3 times a week Vitamin D deficiency likely due to chronic renal disease - Patient had dialysis yesterday - Strict I&O - Avoid nephrotoxic medication HEME: Chronic microcytic hypochromic anemia likely due to CKD Thrombocytopenia METABOLIC: Cachexia, moderate protein calorie malnutrition, BMI 20.6 kg/m2 INFECTIOUS DISEASE: Recent history of shingles Possible viral encephalitis - COVID ,flu negative and MRSA pending - Preliminary Blood culture is negative for any growth in 24 hours of incubation. 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 GI prophylaxis: Protonix 40 mg po daily Bowel regimen: Code status: full code LINES/DRAINS/ACCESS: IV access: Peripheral line, Lt subclavian line placed on 09/24/24 Perdue catheter: DISPOSITION: ICU Advanced care planning spent more than 41 minutes. Patient's status discussed with RN Case discussed with Dr. Spence Plan discussed with: Other (RN) My Orders My Orders Orders - FARDOUS,CAROLEE RESIDENT Procedure Category Date Status Time Ondansetron Hcl PHA 09/29/24 In Process (Zofran) 09:15 Pt Request For Service PT 09/29/24 Logged 11:19 Dietary Evaluation Review Comments: 1. TPN if NPO >5 days 2. Advance diet as medically feasible 3. Continue current POC Expected Outcomes/Goals: to meet 75% estimated needs fu 2-3 days Date of Service: September 29, 2024 Billing Provider: BRANDIE SPENCE MD Common Visit Codes: [id number] INP/OBS CARE(HIGH) Secondary Visit Codes: [id number] CARE PLAN 30 MINUTES CAROLEE WOODRUFF RESIDENT September 29, 2024 18:51 BRANDIE SPENCE MD September 30, 2024 12:53
[2024-09-29] MEDS: EPOETIN ALFA-EPBX 10,000 UNIT/1ML VIAL SC ONE (20:23)
[2024-09-30] VITALS (8 sets, daily range): BP systolic 134–156; BP diastolic 59–80; PULSE 60–71; RESP 16–19; TEMP 97.4–97.7; O2SAT 98–100
[2024-09-30] MEDS ORDERED: diphenhdrAMINE HCL 25 MG CAP PO ONE (00:30)
[2024-09-30] MEDS: LORATADINE 10 MG TAB PO ONE (02:23)
[2024-09-30 11:15] LABS: Hematocrit 27.8 % (36.0-46.0); Hemoglobin 9.3 g/dL (12.2-16.2); Mean Corpuscular Hemoglobin 31.2 pg (28.0-32.0); Mean Corpuscular Hgb Conc. 33.3 g/dL (32.0-36.0); Mean Corpuscular Volume 93.7 fL (80.0-100.0); Platelet Count (auto) 161 10^3/uL (140-450); Red Blood Cells 2.97 10^6/uL (4.0-5.20); White Blood Cell 3.8 10^3/uL (4.4-10.8)
[2024-09-30 11:22] LABS: Chloride 99 mmol/L (98-107); Potassium 3.9 mmol/L (3.5-5.1); Sodium 136 mmol/L (136-145)
[2024-09-30 11:23] LABS: Anion Gap 6 (5-15); Carbon Dioxide 31 mmol/L (20-31)
[2024-09-30 11:24] LABS: Calcium 9.1 mg/dL (8.7-10.4)
[2024-09-30 11:25] LABS: Red Cell Distribution Width 22.7 % (11.8-14.3)
[2024-09-30 11:28] LABS: BUN/Creatinine Ratio 1.5 (10.0-20.0); Glucose 103 mg/dL (74-106)
[2024-09-30 11:29] LABS: Blood Urea Nitrogen 6 mg/dL (9-23)
[2024-09-30 11:31] LABS: Band Neutrophils % (manual) 0; Basophils % (manual) 0 (0.0-2.0); Blast Cells 0; Metamyelocytes % 0; Myelocytes % 0; Promyelocytes % 0; Reactive Lymphocytes 0
[2024-09-30] MEDS ORDERED: SODIUM CHL 0.9% 1000 ML BAG XX ONE (12:15)
[2024-09-30] MEDS: SODIUM CHL 0.9% 1000 ML BAG XX ONE (12:17)
[2024-09-30 13:02] LABS: Eosinophils % (manual) 11 (0-7); Lymphocytes % (manual) 29 (10.0-50.0); Monocytes % (manual) 17 (0-12); Platelet Estimate Adequate
--- NOTE | 2024-09-30 17:51 | DVHPN2 ---
Progress Note - Dictate Date Seen: September 30, 2024 Medical Necessity Reason Pt with a Central, PICC or Fol: No Subjective More alert and oriented NAD vital signs Vital Sign Date Time Temp Pulse Resp B/P (MAP) Pulse Ox O2 Delivery O2 Flow Rate FiO2 09/30/24 17:00 97.6 60 18 140/75 (96) 100 97.6 09/30/24 08:00 Nasal Cannula* 2 28 Total Intake and Output 09/29/24 09/29/24 09/30/24 15:00 23:00 07:00 Intake Total 240 ml 600 ml Balance 240 ml 600 ml medications Current Medications Medications Dose Ordered Sig/Maru Route Start Time Stop Time Status Last Admin Dose Admin Acetaminophen 650 mg Q6HP PRN PO 09/24/24 08:15 09/30/24 05:34 650 MG Levetiracetam 500 mg BID PO 09/28/24 10:00 09/30/24 10:33 500 MG Pantoprazole Sodium 40 mg DAILY@0600 PO 09/29/24 06:00 09/30/24 05:22 40 MG Heparin Sodium (Porcine) 5,000 units Q12HR SC 09/28/24 10:00 09/30/24 10:43 5,000 UNITS Hydralazine HCl 50 mg Q8HR PO 09/28/24 09:30 09/30/24 12:50 50 MG Nifedipine 90 mg DAILY PO 09/28/24 09:30 09/30/24 10:34 90 MG Phenytoin Sodium 100 mg DAILY PO 09/29/24 10:00 09/30/24 10:33 100 MG Carvedilol 6.25 mg Q12HR PO 09/28/24 22:00 09/30/24 10:34 6.25 MG Ondansetron HCl 4 mg Q8HPRN PRN IV 09/29/24 09:15 objective Alert x 2 NAD Lungs CTA CV: RR, no pericardial rub Abdomen: soft, Non tender No leg edema laboratory and microbiology Laboratory Tests 09/30/24 10:50 Test 09/30/24 10:50 Range/Units Serum Glucose 103 74-106 mg/dL Problem List End-stage renal disease on HD via Rt arm AVG Hypertensive urgency Anemia of renal disease. Hypokalemia Hyponatremia Cachexia, malnutrition. Diastolic dysfunction with CHF Seizure disorder Hypertensive/metabolic encephalopathy: improved, MRI negative for CVA Plan: HD again today due to HD not being available for tomorrow Will continue TTS schedule thereafter continue broad spectrum IV antibiotics JOSE M post HD as needed. goal Hb: 10-11 g/dl DC planning Dietary Evaluation Review Comments: 1. TPN if NPO >5 days 2. Advance diet as medically feasible 3. Continue current POC Expected Outcomes/Goals: to meet 75% estimated needs fu 2-3 days Plan discussed with: Patient JEROME MAN MD September 30, 2024 17:51
[2024-09-30] MEDS ORDERED: PHEN1CAP38 PO (17:55)
[2024-09-30] MEDS ORDERED: HYDR50TA47 PO (17:55)
[2024-09-30] MEDS ORDERED: CARV6.2551 PO (17:55)
[2024-09-30] MEDS ORDERED: NIFE90TA75 PO (17:55)
--- NOTE | 2024-09-30 18:49 | DVHDSRES ---
Discharge Summary Date of Admission Resident Creating Document: CAROLEE WOODRUFF RESIDENT September 24, 2024 at 08:03 Date of Discharge: September 30, 2024 Admitting Diagnosis Acute metabolic encephalopathy ESRD on HD Wounds: No open wound was present Labs/Diagnostic Data: Laboratory Results Test 09/30/24 10:50 09/29/24 12:42 09/29/24 03:12 09/28/24 03:26 White Blood Count 3.8 10^3/uL (4.4-10.8) Red Blood Count 2.97 10^6/uL (4.0-5.20) Hemoglobin 9.3 g/dL (12.2-16.2) Hematocrit 27.8 % (36.0-46.0) Mean Corpuscular Volume 93.7 fL (80.0-100.0) Mean Corpuscular Hemoglobin 31.2 pg (28.0-32.0) Mean Corpuscular Hemoglobin Concent 33.3 g/dL (32.0-36.0) Red Cell Distribution Width 22.7 % (11.8-14.3) Platelet Count 161 10^3/uL (140-450) Mean Platelet Volume 9.2 fL (6.9-10.8) Neutrophils (%) (Auto) % (37.0-80.0) Lymphocytes (%) (Auto) % (10.0-50.0) Monocytes (%) (Auto) % (0.0-12.0) Eosinophils (%) (Auto) % (0.0-7.0) Basophils (%) (Auto) % (0.0-2.0) Neutrophils # (Auto) 10 ^3/uL (1.6-8.6) Lymphocytes # (Auto) 10 ^3/uL (0.4-5.4) Monocytes # (Auto) 10 ^3/uL (0-1.3) Eosinophils # (Auto) 10 ^3/uL (0-0.8) Basophils # (Auto) 10 ^3/uL (0-0.2) Differential Total Cells Counted 100.0 (100) Neutrophils % (Manual) 43 (37.0-80.0) Band Neutrophils % (Manual) 0 Lymphocytes % (Manual) 29 (10.0-50.0) Monocytes % (Manual) 17 (0-12) Eosinophils % (Manual) 11 (0-7) Basophils % (Manual) 0 (0.0-2.0) Metamyelocytes % (manual) 0 Myelocytes % (Manual) 0 Promyelocytes % (Manual) 0 Blast Cells % (Manual) 0 Nucleated Red Blood Cells 4.0 % Reactive Lymphocytes 0 Platelet Estimate Adequate Sodium Level 136 mmol/L (136-145) Potassium Level 3.9 mmol/L (3.5-5.1) Chloride Level 99 mmol/L (98-107) Carbon Dioxide Level 31 mmol/L (20-31) Anion Gap 6 (5-15) Blood Urea Nitrogen 6 mg/dL (9-23) Creatinine 4.10 mg/dL (0.550-1.02) Glomerular Filtration Rate Calc 11 mL/min (>90) BUN/Creatinine Ratio 1.5 (10.0-20.0) Serum Glucose 103 mg/dL (74-106) Calcium Level 9.1 mg/dL (8.7-10.4) Hepatitis B Surface Antigen Negative (Negative) Anisocytosis (manual) Slight Phosphorus Level 3.0 mg/dL (2.4-5.1) Magnesium Level 1.9 mg/dL (1.6-2.6) Total Bilirubin 0.4 mg/dL (0.2-1.0) Aspartate Amino Transferase (AST) 56 U/L (13-40) Alanine Aminotransferase (ALT) 12 U/L (7-40) Alkaline Phosphatase 97 U/L (46-116) Total Protein 7.1 g/dL (5.7-8.2) Albumin 3.0 g/dL (3.2-4.8) Test 09/27/24 06:00 09/27/24 03:40 09/25/24 11:55 09/25/24 11:50 Influenza Type A Antigen Negative (Negative) Influenza Type B Antigen Negative (Negative) SARS-CoV-2 Antigen (Rapid) Negative (NEGATIVE) Random Vancomycin Level 15.9 ug/mL (5-10) Ammonia < 10 umol/L (11-32) Blood Gas Specimen Type Arterial Blood Gas Sample Site Right radial Blood Gas Patient Temperature 37.0 Arterial Blood Date Drawn [id number] Arterial Blood pH 7.542 (7.350-7.450) Arterial Blood Partial Pressure CO2 31.4 mmHg (32.0-45.0) Arterial Blood Partial Pressure O2 86.3 mmHg (83.0-108.0) Arterial Blood HCO3 26.4 mmol/L (21.0-28.0) Arterial Blood Oxygen Saturation 96.4 % (94.0-98.0) Arterial Blood Base Excess 4.0 mmol/L (-2.0-3.0) Arterial Blood Oxyhemoglobin 96.0 % (94.0-98.0) Arterial Blood Carboxyhemoglobin 0.0 % (0.5-1.5) Arterial Blood Methemoglobin 0.4 % (0.0-1.5) Hipolito Test Yes Blood Gas Total Hemoglobin 9.80 g/dL (12.0-16.0) Blood Gas Liter Flow 2.00 Blood Gas Modality Nasal cannula FiO2 % 28.0 Test 09/25/24 08:44 09/24/24 08:12 09/24/24 06:40 POC Glucose 80 mg/dl (70-106) Lactic Acid Level 0.9 mmol/L (0.4-2.0) Troponin I High Sensitivity 10 ng/L (</=34) B-Type Natriuretic Peptide 748.31 pg/mL (0-100) Phenytoin (Dilantin) Level < 2.0 ug/mL (10-20) Other Laboratory Tests 09/30/24 10:50 Brief Hx & Hospital Course: Cheryl Wright is a 68-year-old female with past medical history of seizures, hypertension, COPD on home oxygen, severe pulmonary hypertension, and end-stage renal disease on HD (M/W/F) presented to the ED with generalized weakness and low blood pressure. Patient reports that she was at the dialysis center and they had checked her blood pressure stated that it was low and called 911. Patient states that she uses oxygen at home but does not recall how much she also states that she does not have any more left. Patient denies any chest pain, shortness of breath, fever, chills, lightheadedness, weakness, dizziness, abdominal pain, nausea, vomiting, diarrhea, recent trauma or injury, recent sick contacts, or recent travels Hospital course: Initially patient was presented with acute hypertensive encephalopathy with hypertensive emergency. Though First few measurement of blood pressure was showing hypotension because of the falls measurement of blood pressure in the arms over the fistula and subsequent reading was hypertensive emergency .CT head demonstrated No evidence of acute intracranial hemorrhage, mass effect or hydrocephalus. For hypertensive emergency the patient was initially started with IV nicardipine drip, IV hydralazine 15 mg q.6 hours, clonidine patch 0.2 mg and later when patient become more alert and oriented we started p.o. antihypertensive with nifedipine 90 mg p.o. daily, hydralazine 50 mg Q 8 hours, Carvedilol 6.25 bid. History of ESRD on hemodialysis 3 times a week and we resumed hemodialysis in inpatient and patient had few sessions of dialysis in the hospital. Echocardiogram revealed LVEF 55-60% with abnormal septal motion due to RV pressure overload, grade II diastolic dysfunction, severe tricuspid regurgitation, and RVSP at 130 mmHg. For last 24 hours blood pressure was controlled and systolic less than 150. PT evaluated the patient and recommended SNF for rehabilitation. Discussed with the family about the SNF and director social was consulted for SNF placement. Patient is being discharged to SNF today. . Physical examination: General Appearance: Alert, Oriented X3, Cooperative and on room air HEENT: Atraumatic, PERRLA, EOMI, Mucous membrane moist/pink Respiratory: bilateral decreased breath sounds. Cardiovascular: Regular rate, Normal S1, Normal S2, Tricuspid regurgitation murmur present, no chest wall tenderness Abdominal: Distended and flanks are full, Normal bowel sounds, Soft, No tenderness, No hepatospenomegaly, No masses Extremities: No clubbing, No cyanosis, No edema, Normal pulses, No tenderness/swelling Skin: No breakdown, No significant lesion. Neuro: Strength at 5/5 X4 ext, Normal tone, Sensation intact, Cranial nerves 3- 12 NL, Reflexes 2+ Psych/Mental Status: Could not be assessed Diagnosis: Hypertensive encephalopathy Ruled out Press syndrome Possible viral encephalitis Recent history of shingles Ruled out stroke History of seizure disorder Hypertensive emergency Severe pulmonary hypertensio Severe tricuspid regurgitation RV overload likely due to severe volume overload and increased left ventricular end-diastolic pressure Severe pulmonary hypertension Possible bilateral pleural effusion likely due to volume overload Ruled out Gram-positive/Gram-negative pneumoni Ascites likely due to volume overload ruled out chronic liver disease ESRD on hemodialysis 3 times a week Vitamin D deficiency likely due to chronic renal disease Chronic microcytic hypochromic anemia likely due to CKD Thrombocytopenia Cachexia, moderate protein calorie malnutrition, BMI 20.6 kg/m2 Diffuse osseous sclerosis, 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 COMPARISON: XY CHEST PORTABLE on DOS: 09/17/24, XY CHEST XRAY 1 VIEW on DOS: 09/15/24, XY CHEST PORTABLE on DOS: 09/11/24 FINDINGS: LUNGS AND PLEURAL SPACES: See below. HEART: Cardiomegaly with pulmonary congestion and edema. Superimposed pneumonia cannot be excluded. MEDIASTINUM: Unremarkable. Normal mediastinal contour. BONES/JOINTS: Unremarkable. No acute fracture. OTHER FINDINGS: . IMPRESSION: Cardiomegaly with pulmonary congestion and edema. Superimposed pneumonia cannot be excluded. CT HEAD WITHOUT CONTRAST INDICATION: ALOC COMPARISON: CT HEAD WITHOUT CONTRAST on DOS: 09/12/24, CT HEAD WITHOUT CONTRAST on DOS: 09/11/24 TECHNIQUE: CT of the head without intravenous contrast. RADIATION DOSE: CTDIvol: 47.89 mGy, DLP: 866.89 mGy*cm FINDINGS: There is no evidence of acute intracranial hemorrhage, extra-axial collection, mass effect, midline shift, herniation or hydrocephalus. The ventricles, sulci and cisterns are age appropriate. The perez-white differentiation is intact. The visualized paranasal sinuses and mastoid air cells are clear. The surrounding soft tissues and osseous structures are unremarkable. IMPRESSION: 1. No evidence of acute intracranial hemorrhage, mass effect or hydrocephalus. Condition at Discharge: Guarded Final Diagnosis/Problems List Hypertensive encephalopathy Ruled out Press syndrome Possible viral encephalitis Recent history of shingles Ruled out stroke History of seizure disorder Hypertensive emergency Severe pulmonary hypertensio Severe tricuspid regurgitation RV overload likely due to severe volume overload and increased left ventricular end-diastolic pressure Severe pulmonary hypertension Possible bilateral pleural effusion likely due to volume overload Ruled out Gram-positive/Gram-negative pneumoni Ascites likely due to volume overload ruled out chronic liver disease ESRD on hemodialysis 3 times a week Vitamin D deficiency likely due to chronic renal disease Chronic microcytic hypochromic anemia likely due to CKD Thrombocytopenia Cachexia, moderate protein calorie malnutrition, BMI 20.6 kg/m2 Diffuse osseous sclerosis, 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 Patient was counseled about treatment plan, medications, possible side effects, patientverbalized understanding. All questions were answered to the best of my ability. This discharge took greater then 30 minutes in planning, reviewing documentation, counseling the patient, and discussing with other team members." ASSESSMENT ASSESSMENT Assessment ALOC Date of Service: September 30, 2024 Billing Provider: BRANDIE SPENCE MD Common Visit Codes: [id number] DISCH DAY >30min CAROLEE WOODRUFF RESIDENT September 30, 2024 18:49 BRANDIE SPENCE MD October 03, 2024 21:48
[2024-09-30] MEDS: EPOETIN ALFA-EPBX 10,000 UNIT/1ML VIAL SC ONE (21:00)
== END 2024-09-30 21:10 | DRG 291 ==
LOC: EDBD 05:26 → ER 05:26 → OVERFLOW 08:03 → ICU WEST 16:00 → TELE-CENTR 09-29 09:23
PROVIDERS: ADMIT Internal Medicine; ATTEND Emergency Medicine
PROC: 02HV33Z Insertion of Infusion Device into Superior Vena Cava, Percutaneous Approach (ICD-10-PCS; 2024-09-24)
PROC: 5A1D70Z Performance of Urinary Filtration, Intermittent, Less than 6 Hours Per Day (ICD-10-PCS; principal; 2024-09-25)
PROC: 5A1D70Z Performance of Urinary Filtration, Intermittent, Less than 6 Hours Per Day (ICD-10-PCS; 2024-09-27)
PROC: 5A1D70Z Performance of Urinary Filtration, Intermittent, Less than 6 Hours Per Day (ICD-10-PCS; 2024-09-29)
DX: I13.2 Hypertensive heart and chronic kidney disease with heart failure and with stage 5 chronic kidney disease, or end stage renal disease (principal); G93.41 Metabolic encephalopathy; N18.6 End stage renal disease; R57.1 Hypovolemic shock; I16.1 Hypertensive emergency; I67.4 Hypertensive encephalopathy; J44.0 Chronic obstructive pulmonary disease with (acute) lower respiratory infection; R18.8 Other ascites; R64 Cachexia; E87.1 Hypo-osmolality and hyponatremia; A86 Unspecified viral encephalitis; E44.0 Moderate protein-calorie malnutrition; J96.11 Chronic respiratory failure with hypoxia; J96.10 Chronic respiratory failure, unspecified whether with hypoxia or hypercapnia; I50.32 Chronic diastolic (congestive) heart failure; Z20.822 Contact with and (suspected) exposure to COVID-19; D63.1 Anemia in chronic kidney disease; E87.6 Hypokalemia; I27.20 Pulmonary hypertension, unspecified; E55.9 Vitamin D deficiency, unspecified; G40.909 Epilepsy, unspecified, not intractable, without status epilepticus; F17.210 Nicotine dependence, cigarettes, uncomplicated; K76.1 Chronic passive congestion of liver; I36.1 Nonrheumatic tricuspid (valve) insufficiency; D69.6 Thrombocytopenia, unspecified; Z99.2 Dependence on renal dialysis; Z99.3 Dependence on wheelchair; Z88.8 Allergy status to other drugs, medicaments and biological substances; Z79.899 Other long term (current) drug therapy; Z99.81 Dependence on supplemental oxygen; Z68.20 Body mass index [BMI] 20.0-20.9, adult
CPT/HCPCS: 36415; 36556; 36600; 70450; 71045; 80048; 80053; 80185; 80202; 82140; 82565; 82805; 82962; 83605; 83735; 83880; 84100; 84132; 84484; 85007; 85025; 85027; 86850; 86900; 86901; 87040; 87070; 87081; 87205; 87340; 87426; 87804; 90935; 92610; 93005; 96361; 96365; 97110; 97163; 97530; 99291; G0378; J0692; J1100; J2250; J2405; J2704; J3480; J7042; J7060

== ENCOUNTER 2024-10-09 17:22 | Inpatient (IN) | payer MEDICARE, MEDICAID ==
[~2024-10-09] VITALS: Ht 157.5 cm; Wt 55.7 kg
[~2024-10-09 17:22] MED LIST changes: +CARV6.2551 PO; +HYDR50TA47 PO; +NIFE90TA75 PO; +PHEN1CAP38 PO; -VALA500T33 PO
--- NOTE | 2024-10-09 18:56 | ED.PDOC ---
History of Present Illness HPI Comments 68 year old female came to ER via EMS for shortness of breath. Patient has history of hypertension, seizures, COPD, ESRD on dialysis every MWF. She on home oxygen at 2lpm. Noted that her oxygen levels were low earlier so she was brought to the ER. She denies nay subjective complaints. Upon arrival she saturating at 95% at 2lpm Chief Complaint: Shortness of Breath Time Seen by MD: 18:56 Primary Care Provider: AMANDA Shepard Notes: Nurses Notes, Vacuum Pan Operator Notes Allergies: Coded Allergies: Diphenhydramine (Verified Allergy, Unknown, 09/16/24) Gabapentin (Verified Allergy, Unknown, 09/16/24) Home Meds Active Scripts Phenytoin Sodium (DILANTIN CAPSULE) 100 Mg Cp, 100 MG PO DAILY for 30 Days, #30 CAP 1 [facility] Carvedilol (Carvedilol) 6.25 Mg Tab, 1 TAB PO BID for 60 Days, #120 TAB 1 Refill Prov:[facility] 09/30/24 Hydralazine Hcl (Hydralazine Hcl) 50 Mg Tab, 1 TAB PO TID for 60 Days, #180 TAB 2 [facility] 09/30/24 Nifedipine (Nifedipine Er) 90 Mg Tab, 1 TAB PO DAILY for 60 Days, #60 TAB 2 [facility] 09/30/24 Ergocalciferol (VITAMIN D 38927 UNIT) 50,000 [place], [address] UNIT PO weekly for 12 Days, #12 CAP [facility] 09/[facility]/24 Levetiracetam (KEPPRA TABLET) 500 Mg Tb, 500 MG PO BID for 30 Days, #60 TAB 2 [facility] 09/21/24 Hydralazine HCl (Hydralazine HCl) 25 Mg Tab, 25 MG PO Q8HR for 30 Days, #90 TAB 2 [facility] 09/21/24 Nifedipine (Nifedipine Er) 60 Mg Tab, 1 TAB PO DAILY for 30 Days, #30 TAB 2 Refills Prov:[facility] 09/21/24 Reported Medications Phenytoin Sodium (Dilantin) 100 Mg Cap 08/05/11 Information Source: Patient Mode of Arrival: EMS Severity: Moderate Timing: Hours Duration: Since onset Past Medical History PAST MEDICAL HISTORY: COPD, ESRD, HTN, Seizures Past Medical History (Other): Wheelchaor bound Surgical History: Denies all surgeries Surgical History (Other): Dialysis MWF CYTOLOGY SUPERVISOR History: No Pertinent CYTOLOGY SUPERVISOR History Family History Family History: No family hx of DM, No family hx of Heart charlene Social History Smoker: Less Than 1 Pack/Day Alcohol: Other Drugs: Denies Drug Use Lives In: Home Constitutional: denies: chills, diaphoresis, fatigue, fever, malaise, sweats, weakness, others EENTM: denies: blurred vision, double vision, ear bleeding, ear discharge, ear drainage, ear pain, ear ringing, eye pain, eye redness, hearing loss, mouth pain, mouth swelling, nasal discharge, nose bleeding, nose congestion, nose pain, photophobia, tearing, throat pain, throat swelling, voice changes, others Respiratory: reports: shortness of breath; denies: cough, hemoptysis, orthopnea, SOB at rest, SOB with excertion, stridor, wheezing, others Cardiovascular: denies: chest pain, dizzy spells, diaphoresis, Dyspnea on exert ion, edema, irregular heart beat, left arm pain, lightheadedness, palpitations, PND, syncope, others Gastrointestinal: denies: abdomen distended, abdominal pain, blood streaked bowels, constipated, diarrhea, dysphagia, difficulty swallowing, hematemesis, melena, nausea, poor appetite, poor fluid intake, rectal bleeding, rectal pain, vomiting, others Genitourinary: denies: abnormal vagina bleeding, burning, dyspareunia, dysuria, flank pain, frequency, hematuria, incontinence, pain, , vagina discharge, urgency, others Neurological: denies: dizziness, fainting, headache, left sided numbness, left sided weakness, numbness, paresthesia, pre-existing deficit, right sided numbness, right sided weakness, seizure, speech problems, tingling, tremors, weakness, others Musculoskeletal: denies: back pain, gout, joint pain, joint swelling, muscle pain, muscle stiffness, neck pain, others Integumetry: denies: bruises, change in color, change in hair/nails, dryness, laceration, lesions, lumps, rash, wounds, others Allergic/Immunocompromised: denies: Difficulty Healing, Frequent Infections, Hives, Itching, others Hematologic/Lymphatic: denies: anemia, blood clots, easy bleeding, easy bruising, swollen glands, others Endocrine: denies: excessive hunger, excessive sweating, excessive thirst, excessive urination, flushing, intolerance to cold, intolerance to heat, unexplained weight gain, unexplained weight loss, others Psychiatric: denies: anxiety, bipolar disorder, depression, hopeless, panic disorder, schizophrenia, sleepless, suicidal, others Physical Exam General Appearance: No Apparent Distress, Normal HEENT: Normal ENT Inspection, Pharynx Normal, TMs Normal Neck: Full Range of Motion, Non-Tender, Normal, Normal Inspection Respiratory: Chest Non-Tender, Lungs Clear, No Accessory Muscle Use, No Respiratory Distress, Normal Breath Sounds Cardiovascular: No Edema, No JVD, No Murmur, No Gallop, Normal Peripheral Pulses, Regular Rate/Rhythm Breast Exam: Deferred Gastrointestinal: No Organomegaly, Non Tender, No Pulsatile Mass, Normal Bowel Sounds, Soft Genitalia: Deferred Pelvic: Deferred Rectal: Deferred Extremities: No calf tenderness, Normal capillary refill, Normal inspection, Normal range of motion, Non-tender, No pedal edema Musculoskeletal : Apperance: Normal Neurologic: Alert, patient placement coordinator II-XII nml as Tested, No Motor Deficits, Normal Affect, Normal Mood, No Sensory Deficits Cerebellar Function: Normal Reflexes: Normal Skin: Dry, Normal Color, Warm Lymphatic: No Adenopathy Was a procedure done? Was a procedure done?: No Differential Dx Considerations may include: anemia, electrolyte imbalance, COPD, ESRD X-Ray, Labs, Meds, VS Vital Signs Date Time Temp Pulse Resp B/P (MAP) Pulse Ox O2 Delivery O2 Flow Rate FiO2 10/09/24 18:37 98.2 69 16 139/83 (101) 95 98.2 Lab Test 10/09/24 21:35 10/09/24 20:47 Range/Units Troponin I High Sensitivity Pending 11 </=34 ng/L White Blood Count 5.1 4.4-10.8 10^3/uL Red Blood Count 3.14 L 4.0-5.20 10^6/uL Hemoglobin 9.9 L 12.2-16.2 g/dL Hematocrit 29.8 L 36.0-46.0 % Mean Corpuscular Volume 94.6 80.0-100.0 fL Mean Corpuscular Hemoglobin 31.5 28.0-32.0 pg Mean Corpuscular Hemoglobin Concent 33.3 32.0-36.0 g/dL Red Cell Distribution Width 20.3 H 11.8-14.3 % Platelet Count 225 140-450 10^3/uL Mean Platelet Volume 8.5 6.9-10.8 fL Neutrophils (%) (Auto) 46.3 37.0-80.0 % Lymphocytes (%) (Auto) 28.0 10.0-50.0 % Monocytes (%) (Auto) 12.0 0.0-12.0 % Eosinophils (%) (Auto) 13.2 H 0.0-7.0 % Basophils (%) (Auto) 0.5 0.0-2.0 % Neutrophils # (Auto) 2.3 1.6-8.6 10 ^3/uL Lymphocytes # (Auto) 1.4 0.4-5.4 10 ^3/uL Monocytes # (Auto) 0.6 0-1.3 10 ^3/uL Eosinophils # (Auto) 0.7 0-0.8 10 ^3/uL Basophils # (Auto) 0 0-0.2 10 ^3/uL Nucleated Red Blood Cells 0.4 % Sodium Level 135 L 136-145 mmol/L Potassium Level 4.4 3.5-5.1 mmol/L Chloride Level 96 L 98-107 mmol/L Carbon Dioxide Level 32 H 20-31 mmol/L Anion Gap 7 5-15 Blood Urea Nitrogen 25 H 9-23 mg/dL Creatinine 6.39 H 0.550-1.02 mg/dL Glomerular Filtration Rate Calc 7 >90 mL/min BUN/Creatinine Ratio 3.9 L 10.0-20.0 Serum Glucose 91 74-106 mg/dL Calcium Level 9.9 8.7-10.4 mg/dL CHEST RADIOGRAPH Indication: sob Technique: Single frontal view of the chest was obtained Comparison: XY CHEST PORTABLE on DOS: 09/24/24, XY CHEST PORTABLE on DOS: 09/24/24, XY CHEST PORTABLE on DOS: 09/17/24 FINDINGS: Lines and Tubes: None Lungs: No focal consolidation. Pleura: No effusion. No pneumothorax. Cardiomediastinal contours: Unremarkable Bones: No acute osseous abnormality. IMPRESSION: 1. Removal of the midline catheter. 2. Unimproved airspace disease. Time of 1ST Reevaluation: 18:53 Reevaluation 1ST: Unchanged Patient Education/Counseling: Diagnosis, Treatment Family Education/Counseling: No Family Present Departure 1 Departure Time of Disposition: 21:58 (Patient presents with worsening shortness of breath. Patient's workup so far is benign however given the patient's multiple comorbidities and high risk of deterioration, will admit patietn for workup and expert consultation) Impression: Primary Impression: Shortness of breath Disposition: ADMITTED INPATIENT Admit to: Med Surg Condition: Serious Critical Care Note Critical Care Time?: No Stability Stability form required: No Heart Score Heart Score: Heart Score Response (Comments) Value History N/A 0 EKG N/A 0 Age N/A 0 Risk Factors N/A 0 Troponin N/A 0 Total 0 I personally scribed for PANCHO NARAYANAN MD ([facility] on 10/09/24 at 18:56. Electronically submitted by Amadou Cabrera ([email or web address]). I personally scribed for PANCHO NARAYANAN MD ([email or web address]) on 10/09/24 at 19:58. Electronically submitted by Amadou Cabrera ([facility]). PANCHO NARAYANAN MD October 09, 2024 18:56
--- NOTE | 2024-10-09 19:05 | DVH ---
CHEST RADIOGRAPH Indication: sob Technique: Single frontal view of the chest was obtained Comparison: XY CHEST PORTABLE on DOS: 09/24/24, XY CHEST PORTABLE on DOS: 09/24/24, XY CHEST PORTABLE o n DOS: 09/17/24 FINDINGS: Lines and Tubes: None Lungs: No focal consolidation. Pleura: No effusion. No pneumothorax. Cardiomediastinal contours: Unremarkable Bones: No acute osseous abnormality. IMPRESSION: 1. Removal of the midline catheter. 2. Unimproved airspace disease.
[2024-10-09 21:03] LABS: Basophils # (auto) 0 10 ^3/uL (0-0.2); Basophils % (auto) 0.5 % (0.0-2.0); Eosinophils # (auto) 0.7 10 ^3/uL (0-0.8); Eosinophils % (auto) 13.2 % (0.0-7.0); Hematocrit 29.8 % (36.0-46.0); Hemoglobin 9.9 g/dL (12.2-16.2); Lymphocytes # (auto) 1.4 10 ^3/uL (0.4-5.4); Mean Corpuscular Hemoglobin 31.5 pg (28.0-32.0); Mean Corpuscular Hgb Conc. 33.3 g/dL (32.0-36.0); Mean Corpuscular Volume 94.6 fL (80.0-100.0); Monocytes # (auto) 0.6 10 ^3/uL (0-1.3); Neutrophils # (auto) 2.3 10 ^3/uL (1.6-8.6); Neutrophils % (auto) 46.3 % (37.0-80.0); Nucleated Red Blood Cells % 0.4 %; Platelet Count (auto) 225 10^3/uL (140-450); Red Blood Cells 3.14 10^6/uL (4.0-5.20); Red Cell Distribution Width 20.3 % (11.8-14.3); White Blood Cell 5.1 10^3/uL (4.4-10.8)
[2024-10-09 21:04] LABS: Potassium 4.4 mmol/L (3.5-5.1)
[2024-10-09 21:05] LABS: Anion Gap 7 (5-15); Calcium 9.9 mg/dL (8.7-10.4)
[2024-10-09 21:06] LABS: Carbon Dioxide 32 mmol/L (20-31); Chloride 96 mmol/L (98-107); Sodium 135 mmol/L (136-145)
[2024-10-09 21:10] LABS: BUN/Creatinine Ratio 3.9 (10.0-20.0); Glucose 91 mg/dL (74-106)
[2024-10-09 21:40] LABS: Blood Urea Nitrogen 25 mg/dL (9-23)
[2024-10-09] MEDS ORDERED: DOCUSATE SOD 100 MG CAP PO PRN (23:30)
[2024-10-09] MEDS ORDERED: IPRATROPIUM BROM 0.5 MG/2.5ML INH SOL NEB PRN (23:30)
[2024-10-09] MEDS ORDERED: MORPHINE SULFATE INJ 2 MG/ml SYRG IV PRN (23:30)
[2024-10-09] MEDS ORDERED: DEXTROSE (50%) 50ML SYRG IV PRN (23:30)
[2024-10-09] MEDS ORDERED: ALBUTEROL SULF 2.5 MG/0.5ML(0.5%) NEB SOLN NEB PRN (23:30)
[2024-10-09] MEDS ORDERED: NITROGLYCERIN 0.4 MG SL TAB SL PRN (23:30)
--- NOTE | 2024-10-09 23:30 | DVHHP2 ---
History of Present Illness Reason for Visit: Acute respiratory distress History of Present Illness The patient is a 68-year-old female wheelchair-bound with past medical history of seizures, hypertension, end-stage renal disease on hemodialysis -, and COPD who presented to [facility] ED with complaint of shortness of breaths. Patient was seen and evaluated in the ED, laboratory data shows WBC 5.1, hemoglobin 9.9, hematocrit 29.8, platelets 225, sodium 135, potassium 4.4, BUN 25, creatinine 6.39, troponin 11, blood pressure 139/83, heart rate 69, temperature 98.2 F, O2 saturation 95% on oxygen. Patient was given breathing treatment, please see medication orders section in the computer. On my assessment, patient denied chest pain, no headache, dizziness, no diaphoresis, currently on oxygen, no nausea, no vomiting, no fever, no chills. Patient was admitted for further evaluation and medical management. Past Medical History COPD, ESRD, HTN, Seizures Past Surgical History Dialysis assess Family History Reviewed, noncontributory to the management of this case. Past Social History The patient lives at home, denies smoking, alcohol or illicit drugs abuse. Review of Systems Constitutional: Yes: Weakness; No: Fever, Chills, Sweats, Malaise, Other Eyes: No: Pain, Vision change, Conjunctivae inflammation, Eyelid inflammation, Other, Redness ENT: No: Ear pain, Ear discharge, Nose pain, Nose discharge, Nose congestion, Mouth pain, Mouth swelling, Throat pain, Throat swelling, Other Respiratory: Shortness of breath, Other (SOB at rest); No: Cough, Dry, SOB with excertion, Wheezing, Hemoptysis, Pleuritic Pain, Sputum, Wheezing Cardiovascular: No: Chest Pain, Palpitations, Orthopnea, Paroxysmal Noc. Dy spnea, Edema, Lt Headedness, Other Gastrointestinal: No: Nausea, Vomiting, Abdominal Pain, Diarrhea, Constipation, Melena, Hematochezia, Other Genitourinary: No Dysuria, No Frequency, No Incontinence, No Hematuria, No Retention, No Other Musculoskeletal: No: other, neck pain, shoulder pain, arm pain, back pain, hand pain, leg pain, foot pain Skin: No: Rash, Lesions, Jaundice, Bruising, Other Neurological: No: Weakness, Numbness, Incoordination, Change in speech, Confusion, Seizures, Other Allergies: Coded Allergies: Diphenhydramine (Verified Allergy, Unknown, 09/16/24) Gabapentin (Verified Allergy, Unknown, 09/16/24) Exam Vital Signs Vital Signs Date Time Temp Pulse Resp B/P (MAP) Pulse Ox O2 Delivery O2 Flow Rate FiO2 10/09/24 18:37 98.2 69 16 139/83 (101) 95 98.2 General Appearance: Alert, Oriented X3, Cooperative, No acute distress HEENT: Atraumatic, PERRLA, EOMI, Mucous membr. moist/pink Respiratory: Normal air movement Cardiovascular: Regular rate, Normal S1, Normal S2, No murmurs Abdominal: Normal bowel sounds, Soft, No tenderness, No hepatospenomegaly, No masses Extremities: No clubbing, No cyanosis, No edema, Normal pulses, No tenderness/swelling Skin: No rashes, No breakdown, No significant lesion Neuro: Normal speech, Normal tone, Sensation intact, Cranial nerves 3-12 NL, Reflexes 2+, Other (Generalized weakness) Psych/Mental Status: Mental status NL, Mood NL Labs/Xrays Labs Test 10/09/24 21:35 10/09/24 20:47 Range/Units Troponin I High Sensitivity 10 </=34 ng/L White Blood Count 5.1 4.4-10.8 10^3/uL Red Blood Count 3.14 L 4.0-5.20 10^6/uL Hemoglobin 9.9 L 12.2-16.2 g/dL Hematocrit 29.8 L 36.0-46.0 % Mean Corpuscular Volume 94.6 80.0-100.0 fL Mean Corpuscular Hemoglobin 31.5 28.0-32.0 pg Mean Corpuscular Hemoglobin Concent 33.3 32.0-36.0 g/dL Red Cell Distribution Width 20.3 H 11.8-14.3 % Platelet Count 225 140-450 10^3/uL Mean Platelet Volume 8.5 6.9-10.8 fL Neutrophils (%) (Auto) 46.3 37.0-80.0 % Lymphocytes (%) (Auto) 28.0 10.0-50.0 % Monocytes (%) (Auto) 12.0 0.0-12.0 % Eosinophils (%) (Auto) 13.2 H 0.0-7.0 % Basophils (%) (Auto) 0.5 0.0-2.0 % Neutrophils # (Auto) 2.3 1.6-8.6 10 ^3/uL Lymphocytes # (Auto) 1.4 0.4-5.4 10 ^3/uL Monocytes # (Auto) 0.6 0-1.3 10 ^3/uL Eosinophils # (Auto) 0.7 0-0.8 10 ^3/uL Basophils # (Auto) 0 0-0.2 10 ^3/uL Nucleated Red Blood Cells 0.4 % Sodium Level 135 L 136-145 mmol/L Potassium Level 4.4 3.5-5.1 mmol/L Chloride Level 96 L 98-107 mmol/L Carbon Dioxide Level 32 H 20-31 mmol/L Anion Gap 7 5-15 Blood Urea Nitrogen 25 H 9-23 mg/dL Creatinine 6.39 H 0.550-1.02 mg/dL Glomerular Filtration Rate Calc 7 >90 mL/min BUN/Creatinine Ratio 3.9 L 10.0-20.0 Serum Glucose 91 74-106 mg/dL Calcium Level 9.9 8.7-10.4 mg/dL PATIENT: SUNIL CHAVES ACCT: [id number] UNIT: [id number] : 1955 LOC: ER ROOM / BED: / AGE / SEX: 68 / F ADM STATUS: REG ER SERVICE 19 ORDERING PHYSICIAN: PANCHO NARAYANAN MD PROCEDURE(s): CXRP - CHEST PORTABLE REASON: sob ORDER NUMBER(s): [id number], ACCESSION NUMBER(s): [id number] CHEST RADIOGRAPH Indication: sob Technique: Single frontal view of the chest was obtained Comparison: XY CHEST PORTABLE on DOS: 09/24/24, XY CHEST PORTABLE on DOS: 09/24/24, XY CHEST PORTABLE on DOS: 09/17/24 FINDINGS: Lines and Tubes: None Lungs: No focal consolidation. Pleura: No effusion. No pneumothorax. Cardiomediastinal contours: Unremarkable Bones: No acute osseous abnormality. IMPRESSION: 1. Removal of the midline catheter. 2. Unimproved airspace disease. Assessment/Plan Assessment/Plan Acute respiratory distress Anemia, unspecified Generalized weakness End-stage renal disease on hemodialysis Plan 1. Admit to telemetry unit 2. Breathing treatment 3. Pain control management 4. Management of fluids and electrolytes 5. Consultation for Nephrology 6. Diagnostic tests chest x-ray 7. DVT prophylaxis-on aspirin 8. Repeat labs CBC, CMP in a.m. 9. Continue with current medical management 10. Treatment plan discussed with patient and RN. Patient verbalized understanding. Plan discussed with: Patient, Other (RN) Problem List: (1) Acute respiratory distress (2) Anemia, unspecified (3) Generalized weakness (4) End-stage renal disease on hemodialysis Date of Service: October 09, 2024 Billing Provider: FAZAL MARCOS DNP Common Visit Codes: [id number] INP/OBS CARE (HIGH) FAZAL MARCOS DNP October 09, 2024 23:29
[2024-10-09 23:35] VITALS: BP 139/83; PULSE 69; RESP 18; O2SAT 95
[2024-10-10] VITALS (11 sets, daily range): BP systolic 127–166; BP diastolic 67–95; PULSE 59–77; RESP 14–19; TEMP 97.5–98.5; O2SAT 96–100
[2024-10-10] MEDS: ACETAMINOPHEN 325 MG TAB PO PRN (02:51)
[2024-10-10] MEDS: hydrALAZINE HCL 20 MG/ML VL IV PRN (02:51)
[2024-10-10] MEDS: SODIUM CHLOR 0.9% PF (SALINE LOCK) 10ML VIAL/SYR IV SCH (05:54)
[2024-10-10] MEDS: InsuLIN REG 1unit/0.01ml Soln (100units/ml) SC SCH (05:56)
[2024-10-10] MEDS: ACCU-CHEK COMFORT CURVE STRIP VI SCH (05:56)
[2024-10-10] MEDS: SEVELAMER 800 MG TAB PO SCH (08:21)
[2024-10-10] MEDS: ASPirin 81 mg TAB PO SCH (10:00)
[2024-10-10] MEDS: B-COMPLEX W/ C & FOLIC ACID(NEPHROVITE TAB) PO SCH (10:24)
[2024-10-10] MEDS: CARVEDILOL 3.125 MG TAB PO SCH (10:24)
[2024-10-10] MEDS: levETIRAcetam 500 mg/100ml 100 ML IV SCH (11:13)
[2024-10-10 14:24] LABS: Basophils # (auto) 0.2 10 ^3/uL (0-0.2); Eosinophils # (auto) 0.6 10 ^3/uL (0-0.8); Mean Corpuscular Volume 93.4 fL (80.0-100.0); Monocytes # (auto) 0.6 10 ^3/uL (0-1.3); Neutrophils # (auto) 1.7 10 ^3/uL (1.6-8.6); Nucleated Red Blood Cells % 0.3 %
[2024-10-10 14:27] LABS: Basophils % (auto) 4.2 % (0.0-2.0); Eosinophils % (auto) 15.1 % (0.0-7.0); Hematocrit 24.7 % (36.0-46.0); Hemoglobin 8.3 g/dL (12.2-16.2); Lymphocytes % (auto) 24.4 % (10.0-50.0); Mean Corpuscular Hemoglobin 31.2 pg (28.0-32.0); Mean Corpuscular Hgb Conc. 33.4 g/dL (32.0-36.0); Monocytes % (auto) 14.3 % (0.0-12.0); Platelet Count (auto) 196 10^3/uL (140-450); Red Blood Cells 2.65 10^6/uL (4.0-5.20); Red Cell Distribution Width 20.1 % (11.8-14.3)
[2024-10-10 14:42] LABS: Alanine Aminotransferase 17 U/L (7-40); Anion Gap 7 (5-15); Aspartate Aminotransferase 37 U/L (13-40); Calcium 9.6 mg/dL (8.7-10.4); Carbon Dioxide 30 mmol/L (20-31); Chloride 98 mmol/L (98-107); Glucose 82 mg/dL (74-106); Potassium 4.4 mmol/L (3.5-5.1); Total Protein 7.1 g/dL (5.7-8.2)
[2024-10-10 14:44] LABS: Albumin 2.8 g/dL (3.2-4.8); Alkaline Phosphatase 170 U/L (46-116); Bilirubin, Total 0.2 mg/dL (0.2-1.0); Blood Urea Nitrogen 30 mg/dL (9-23); Sodium 135 mmol/L (136-145)
--- NOTE | 2024-10-10 16:03 | DVHPN2 ---
Reviewed: Care Plan, H&P, Labs, Medications, Previous Orders Changes from previous H/P or p: No Changes General: Per HPI Eyes: No Pain, No Vision change, No Conjunctivae inflammation, No Eyelid inflammation, No Other, No Redness ENT: No Ear pain, No Ear discharge, No Nose pain, No Nose discharge, No Nose congestion, No Mouth pain, No Mouth swelling, No Throat pain, No Throat swelling, No Other Cardiovascular: No Chest Pain, No Palpitations, No Orthopnea, No Paroxysmal Noc. Dyspnea, No Edema, No Lt Headedness, No Other Respiratory: No Cough, No Dry; Shortness of breath; No SOB with excertion, No Wheezing, No Hemoptysis, No Pleuritic Pain, No Sputum; Other (SOB at rest) Gastrointestinal: No Nausea, No Vomiting, No Abdominal Pain, No Diarrhea, No Constipation, No Melena, No Hematochezia, No Other Genitourinary: No Dysuria, No Frequency, No Incontinence, No Hematuria, No Retention, No Other Musculoskeletal: No other, No neck pain, No shoulder pain, No arm pain, No back pain, No hand pain, No leg pain, No foot pain Skin: No Rash, No Lesions, No Jaundice, No Bruising, No Other Objective Vitals Vital Signs Date Time Temp Pulse Resp B/P (MAP) Pulse Ox O2 Delivery O2 Flow Rate FiO2 10/10/24 13:00 98.1 77 18 147/80 (102) 98 98.1 10/10/24 10:45 Nasal Cannula 2.0 10/10/24 10:45 28 Intake/Output Intake and Output 10/10/24 07:00 Intake Total 0 ml Balance 0 ml Intake Oral 0 ml General Appearance: Alert Cardiovascular: Regular rate, Normal S1, Normal S2 Neuro: Normal gait, Normal speech Medications Current Medications Medications Dose Ordered Sig/Maru Route Start Time Stop Time Status Last Admin Dose Admin Carvedilol 3.125 mg Q12HR PO 10/10/24 10:00 10/10/24 10:24 3.125 MG Hydralazine HCl 10 mg Q6HP PRN IV 10/09/24 23:30 10/10/24 02:51 10 MG Albuterol 2.5 mg Q4HPRN PRN NEB 10/09/24 23:30 Ipratropium [place] 0.5 mg Q4HPRN PRN NEB 10/09/24 23:30 Sevelamer HCl 800 mg TIDWM PO 10/10/24 08:00 10/10/24 12:30 800 MG Multivit/Ca Carb/ B Cmplx/FA/Prenat 1 tab DAILY PO 10/10/24 10:00 10/10/24 10:24 1 TAB Levetiracetam 100 ml @ 400 mls/hr BID IV 10/10/24 10:00 10/10/24 11:13 400 MLS/HR Atorvastatin Calcium 10 mg HS PO 10/10/24 22:00 Diagnostic Test (Pha) 1 strip ACHS 10/10/24 07:00 10/10/24 11:30 1 STRIP Insulin Human Regular ACHS SC 10/10/24 07:00 Dextrose 50 ml UD PRN IV 10/09/24 23:30 Sodium Chloride 10 ml Q8HR IV 10/10/24 06:00 10/10/24 13:34 10 ML Acetaminophen/ Hydrocodone Bitart 1 tab Q4HP PRN PO 10/09/24 23:30 Ondansetron HCl 4 mg Q4HP PRN IV 10/09/24 23:30 Docusate Sodium 100 mg BIDPRN PRN PO 10/09/24 23:30 Acetaminophen 650 mg Q6HP PRN PO 10/09/24 23:30 10/10/24 02:51 650 MG Nitroglycerin 0.4 mg Q5MINP PRN SL 10/09/24 23:30 Morphine Sulfate 2 mg Q30M PRN IV 10/09/24 23:30 Aspirin 81 mg DAILY PO 10/10/24 10:00 Laboratory Results Laboratory Tests 10/10/24 14:15 Chemistry Test 10/09/24 20:47 10/10/24 14:15 Calcium Level 9.9 mg/dL (8.7-10.4) 9.6 mg/dL (8.7-10.4) Albumin 2.8 g/dL (3.2-4.8) L Total Protein 7.1 g/dL (5.7-8.2) LFT Test 10/10/24 14:15 Alanine Aminotransferase (ALT) 17 U/L (7-40) Alkaline Phosphatase 170 U/L (46-116) H Aspartate Amino Transferase (AST) 37 U/L (13-40) Total Bilirubin 0.2 mg/dL (0.2-1.0) Labs and/or images reviewed: Labs reviewed by me, Image(s) reviewed by me Assessment/Plan Assessment/Plan The patient is a 68-year-old female wheelchair-bound with past medical history of seizures, hypertension, end-stage renal disease on hemodialysis M-W-F, and COPD who presented to [facility] ED with complaint of shortness of breaths. Patient was seen and evaluated in the ED, laboratory data shows WBC 5.1, hemoglobin 9.9, hematocrit 29.8, platelets 225, sodium 135, potassium 4.4, BUN 25, creatinine 6.39, troponin 11, blood pressure 139/83, heart rate 69, temperature 98.2 F, O2 saturation 95% on oxygen. Patient was given breathing treatment, please see medication orders section in the computer. On my assessment, patient denied chest pain, no headache, dizziness, no diaphoresis, currently on oxygen, no nausea, no vomiting, no fever, no chills. Patient was admitted for further evaluation and medical management. Acute respiratory distress Anemia, unspecified Generalized weakness End-stage renal disease on hemodialysis suspected PNA 10/10/2024 started on iv abx consult to pulavel nephro on board Plan discussed with: Patient Date of Service: Oct 10, 2024 Billing Provider: MIKAEL WITT DO Common Visit Codes: [id number] INP/OBS CARE(HIGH) MIKAEL WITT DO Oct 10, 2024 16:03
[2024-10-10] MEDS ORDERED: cefTRIAXone 1GM/50ML D5W 50 ML IV SCH (18:54)
[2024-10-10] MEDS: AZITHROMYCIN 500MG/ 250ML 250 ML IV SCH (21:50)
[2024-10-10] MEDS: ATORVASTATIN 20 MG TAB PO SCH (21:52)
[2024-10-11] VITALS (10 sets, daily range): BP systolic 142–194; BP diastolic 77–98; PULSE 63–72; RESP 15–18; TEMP 97–98.3; O2SAT 94–100
[2024-10-11] MEDS: cefTRIAXone 1GM/50ML D5W 50 ML IV SCH (01:24)
[2024-10-11] MEDS ORDERED: hydrALAZINE HCL 10 MG TAB PO PRN (02:30)
[2024-10-11] MEDS: hydrALAZINE HCL 10 MG TAB PO PRN (02:33)
[2024-10-11 12:11] LABS: Hepatitis B Surface Antigen Negative (Negative)
[2024-10-11 12:17] LABS: Hepatitis C Antibody Reactive (Negative)
--- NOTE | 2024-10-11 13:05 | DVHPN2 ---
Progress Note Date Seen: Oct 11, 2024 Medical Necessity Reason Pt with a Central, PICC or Fol: No Subjective Patient reports: No new complaints Review of Systems: HEENT:Normal, CVS:Normal, RESPIRATORY:Normal, GI:Normal, :Normal, MSK:Normal, NEURO:Normal Objective vital signs Vital Sign Date Time Temp Pulse Resp B/P (MAP) Pulse Ox O2 Delivery O2 Flow Rate FiO2 10/11/24 11:08 196/101 10/11/24 10:04 97 Nasal Cannula 1.0 10/11/24 10:04 24 10/11/24 09:15 66 10/11/24 09:00 97.0 17 97.0 Total Intake and Output 10/10/24 10/10/24 10/11/24 15:00 23:00 07:00 Intake Total 360 ml 200 ml Balance 360 ml 200 ml medications Current Medications Medications Dose Ordered Sig/Maru Route Start Time Stop Time Status Last Admin Dose Admin Carvedilol 3.125 mg Q12HR PO 10/10/24 10:00 10/11/24 08:15 3.125 MG Hydralazine HCl 10 mg Q6HP PRN IV 10/09/24 23:30 10/11/24 11:08 10 MG Albuterol 2.5 mg Q4HPRN PRN NEB 10/09/24 23:30 Ipratropium [place] 0.5 mg Q4HPRN PRN NEB 10/09/24 23:30 Sevelamer HCl 800 mg TIDWM PO 10/10/24 08:00 10/11/24 11:56 800 MG Multivit/Ca Carb/ B Cmplx/FA/Prenat 1 tab DAILY PO 10/10/24 10:00 10/11/24 08:14 1 TAB Levetiracetam 100 ml @ 400 mls/hr BID IV 10/10/24 10:00 10/11/24 10:32 400 MLS/HR Atorvastatin Calcium 10 mg HS PO 10/10/24 22:00 10/10/24 21:52 10 MG Diagnostic Test (Pha) 1 strip ACHS 10/10/24 07:00 10/11/24 11:11 1 STRIP Insulin Human Regular ACHS SC 10/10/24 07:00 Dextrose 50 ml UD PRN IV 10/09/24 23:30 Sodium Chloride 10 ml Q8HR IV 10/10/24 06:00 10/10/24 21:51 10 ML Acetaminophen/ Hydrocodone Bitart 1 tab Q4HP PRN PO 10/09/24 23:30 Ondansetron HCl 4 mg Q4HP PRN IV 10/09/24 23:30 Docusate Sodium 100 mg BIDPRN PRN PO 10/09/24 23:30 Acetaminophen 650 mg Q6HP PRN PO 10/09/24 23:30 10/10/24 02:51 650 MG Nitroglycerin 0.4 mg Q5MINP PRN SL 10/09/24 23:30 Morphine Sulfate 2 mg Q30M PRN IV 10/09/24 23:30 Aspirin 81 mg DAILY PO 10/10/24 10:00 10/11/24 08:15 81 MG Azithromycin 250 ml @ 125 mls/hr DAILY IV 10/10/24 20:00 10/11/24 11:56 125 MLS/HR Ceftriaxone Sodium 50 ml @ 100 mls/hr DAILY@09 IV 10/11/24 00:00 10/11/24 10:32 100 MLS/HR Hydralazine HCl 10 mg Q6HP PRN PO 10/11/24 02:30 10/11/24 08:15 10 MG Examination: GENERAL:Normal, HEENT:Normal, NECK:Normal, LUNGS:Normal, LUNGS:Abnormal (on oxygen), CVS:Normal, ABDOMEN:Normal, MSK:Normal, SKIN:Normal, NEURO:Normal, :Normal laboratory and microbiology Laboratory Tests 10/10/24 14:15 Test 10/10/24 14:15 Range/Units Serum Glucose 82 74-106 mg/dL Microbiology Date/Time Source Procedure Growth Status 10/10/24 02:31 Nose MRSA Screen - Final Complete Problem List/Assessment/Plan Problem List/Assessment/Plan #1 Hypertensive emergency: adjust meds #2 Recent history of shingles #3 seizure disorder #4 Severe pulmonary hypertensio #5 Severe tricuspid regurgitation #6 acute on chronic diastolic heart failure: dialysis #7 ESRD on hemodialysis 3 times a week #8 Vitamin D deficiency likely due to chronic renal disease #9 Chronic microcytic hypochromic anemia likely due to CKD #11 Cachexia, moderate protein calorie malnutrition, BMI 20.6 kg/m2 #12 Diffuse osseous sclerosis, 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
[2024-10-11] MEDS: NIFEdipine ER 30 MG TAB PO ONE (14:33)
[2024-10-11] MEDS: hydrALAZINE HCL 25 MG TAB PO SCH (14:33)
[2024-10-11] MEDS: HYDROcodone-ACET 5/325MG TAB PO PRN (16:48)
[2024-10-11] MEDS: ONDANSETRON HCL 4 MG/2 ML VIAL IV PRN (17:43)
--- NOTE | 2024-10-11 20:30 | DVHINCON2 ---
DATE OF CONSULTATION: 10/11/2024 CONSULTING PHYSICIAN: Dr. Carreno. REASON FOR CONSULTATION: Management of dialysis. HISTORY OF PRESENT ILLNESS: The patient is a 68-year-old female who was just discharged from this hospital last week. She was also here for about a week last month. Both admissions related to sepsis and pneumonia with respiratory failure. This time, she comes complaining again of shortness of breath. Chest x-ray shows unresolved air space disease. I am being consulted to handle her dialysis therapy. REVIEW OF SYSTEMS: Otherwise unremarkable. PAST MEDICAL HISTORY: Her past medical history is well documented on the previous consultation. PHYSICAL EXAMINATION: VITAL SIGNS: Blood pressure is 160/86, heart rate 67, respirations 15 per minute, temperature 97.3. GENERAL: The patient is an elderly female who appears to be older than her stated age. She looks chronically ill and malnourished. HEENT: Shows pale oral mucosa and conjunctivae. NECK: No jugular venous distention. LUNGS: Show bilateral crackles. CARDIOVASCULAR: Shows regular rate with 1/6 systolic murmur. ABDOMEN: Soft and nontender. No organomegaly. EXTREMITIES: Show no clubbing or cyanosis. No edema. LABORATORY FINDINGS: Sodium is 135, potassium 4.4, BUN 30, creatinine 7.4. Hemoglobin 8.3, white blood cell count 4.0. ASSESSMENT AND PLAN: * End-stage renal disease. * Pneumonia. * Mild fluid overload. * Anemia of renal disease. The patient will be scheduled to have dialysis within the next 24 hours. We will remove 2.5 liters of fluid or as tolerated. She should continue intravenous antibiotics for pneumonia, respiratory therapy, oxygen supplementation as needed. We should also put her on a restriction of free water given the mild hyponatremia. For the anemia, I recommend to give her intravenous iron and we will increase the dose of Epogen during dialysis. Thank you for the consult. MD TALITA Rodriguez/CHARLENE TID: [id number] RECEIPT: [id number]
[2024-10-11] MEDS: levETIRAcetam 500 MG TAB PO SCH (22:30)
[2024-10-12] VITALS (10 sets, daily range): BP systolic 117–189; BP diastolic 71–106; PULSE 56–68; RESP 16–20; TEMP 97.7–98.6; O2SAT 96–100
[2024-10-12 06:55] LABS: Basophils # (auto) 0.2 10 ^3/uL (0-0.2); Basophils % (auto) 4.4 % (0.0-2.0); Eosinophils # (auto) 0.7 10 ^3/uL (0-0.8); Eosinophils % (auto) 14.5 % (0.0-7.0); Hematocrit 25.6 % (36.0-46.0); Hemoglobin 8.6 g/dL (12.2-16.2); Lymphocytes # (auto) 1.4 10 ^3/uL (0.4-5.4); Lymphocytes % (auto) 29.2 % (10.0-50.0); Mean Corpuscular Hemoglobin 31.7 pg (28.0-32.0); Mean Corpuscular Hgb Conc. 33.6 g/dL (32.0-36.0); Mean Corpuscular Volume 94.4 fL (80.0-100.0); Monocytes # (auto) 0.4 10 ^3/uL (0-1.3); Neutrophils % (auto) 42.9 % (37.0-80.0); Nucleated Red Blood Cells % 1.1 %; Platelet Count (auto) 291 10^3/uL (140-450); Red Blood Cells 2.72 10^6/uL (4.0-5.20); Red Cell Distribution Width 20.2 % (11.8-14.3); White Blood Cell 4.6 10^3/uL (4.4-10.8)
[2024-10-12] MEDS: SODIUM CHL 0.9% 1000 ML BAG XX ONE (07:00)
[2024-10-12 07:58] LABS: Anisocytosis Slight; Ovalocytes FEW; Platelet Estimate Adequate
[2024-10-12 10:30] LABS: Anion Gap 8 (5-15); Carbon Dioxide 30 mmol/L (20-31); Potassium 4.5 mmol/L (3.5-5.1)
[2024-10-12 10:31] LABS: Calcium 9.7 mg/dL (8.7-10.4)
[2024-10-12 10:35] LABS: Glucose 83 mg/dL (74-106)
[2024-10-12 10:36] LABS: BUN/Creatinine Ratio 4.3 (10.0-20.0)
[2024-10-12 10:43] LABS: Blood Urea Nitrogen 40 mg/dL (9-23); Chloride 96 mmol/L (98-107); Sodium 134 mmol/L (136-145)
[2024-10-12] MEDS: NIFEdipine ER 30 MG TAB PO SCH (11:04)
--- NOTE | 2024-10-12 11:19 | DVHPN2 ---
Progress Note Date Seen: Oct 12, 2024 Medical Necessity Reason Pt with a Central, PICC or Fol: No Subjective Patient reports: No new complaints Review of Systems: HEENT:Normal, CVS:Normal, RESPIRATORY:Normal, GI:Normal, :Normal, MSK:Normal, NEURO:Normal Objective vital signs Vital Sign Date Time Temp Pulse Resp B/P (MAP) Pulse Ox O2 Delivery O2 Flow Rate FiO2 10/12/24 11:04 176/88 10/12/24 11:00 68 10/12/24 08:21 97.7 18 99 97.7 10/12/24 08:00 Nasal Cannula* 2 28 Total Intake and Output 10/11/24 10/11/24 10/12/24 15:00 23:00 07:00 Intake Total 900 ml 600 ml Balance 900 ml 600 ml medications Current Medications Medications Dose Ordered Sig/Maru Route Start Time Stop Time Status Last Admin Dose Admin Carvedilol 3.125 mg Q12HR PO 10/10/24 10:00 10/12/24 11:00 3.125 MG Hydralazine HCl 10 mg Q6HP PRN IV 10/09/24 23:30 10/11/24 16:45 10 MG Albuterol 2.5 mg Q4HPRN PRN NEB 10/09/24 23:30 Ipratropium [place] 0.5 mg Q4HPRN PRN NEB 10/09/24 23:30 Sevelamer HCl 800 mg TIDWM PO 10/10/24 08:00 10/12/24 08:05 800 MG Multivit/Ca Carb/ B Cmplx/FA/Prenat 1 tab DAILY PO 10/10/24 10:00 10/12/24 10:58 1 TAB Atorvastatin Calcium 10 mg HS PO 10/10/24 22:00 10/11/24 22:31 10 MG Diagnostic Test (Pha) 1 strip ACHS 10/10/24 07:00 10/12/24 07:23 1 STRIP Insulin Human Regular ACHS SC 10/10/24 07:00 Dextrose 50 ml UD PRN IV 10/09/24 23:30 Sodium Chloride 10 ml Q8HR IV 10/10/24 06:00 10/12/24 05:23 10 ML Acetaminophen/ Hydrocodone Bitart 1 tab Q4HP PRN PO 10/09/24 23:30 10/12/24 00:45 1 TAB Ondansetron HCl 4 mg Q4HP PRN IV 10/09/24 23:30 10/11/24 17:43 4 MG Docusate Sodium 100 mg BIDPRN PRN PO 10/09/24 23:30 Acetaminophen 650 mg Q6HP PRN PO 10/09/24 23:30 10/11/24 22:41 650 MG Nitroglycerin 0.4 mg Q5MINP PRN SL 10/09/24 23:30 Morphine Sulfate 2 mg Q30M PRN IV 10/09/24 23:30 Aspirin 81 mg DAILY PO 10/10/24 10:00 10/11/24 08:15 81 MG Nifedipine 60 mg DAILY PO 10/12/24 10:00 10/12/24 11:04 60 MG Levetiracetam 500 mg BID PO 10/11/24 22:00 10/11/24 22:30 500 MG Hydralazine HCl 50 mg Q8HR PO 10/11/24 14:00 10/11/24 22:30 50 MG Examination: GENERAL:Normal, HEENT:Normal, NECK:Normal, LUNGS:Normal, CVS:Normal, ABDOMEN:Normal, MSK:Normal, SKIN:Normal, NEURO:Normal, :Normal laboratory and microbiology Laboratory Tests 10/12/24 10:00 10/12/24 05:55 Test 10/12/24 10:00 Range/Units Serum Glucose 83 74-106 mg/dL Microbiology Date/Time Source Procedure Growth Status 10/10/24 02:31 Nose MRSA Screen - Final Complete Problem List/Assessment/Plan Problem List/Assessment/Plan #1 Hypertensive emergency: adjust meds #2 Recent history of shingles #3 seizure disorder #4 Severe pulmonary hypertensio #5 Severe tricuspid regurgitation #6 acute on chronic diastolic heart failure: dialysis #7 ESRD on hemodialysis 3 times a week #8 Vitamin D deficiency likely due to chronic renal disease #9 Chronic microcytic hypochromic anemia likely due to CKD #11 Cachexia, moderate protein calorie malnutrition, BMI 20.6 kg/m2 #12 Diffuse osseous sclerosis, 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
--- NOTE | 2024-10-12 11:32 | DVHPN2 ---
Progress Note - Dictate Date Seen: Oct 12, 2024 Has the PT tested + for MRSA If YES, has PT been informed?: No Medical Necessity Reason Pt with a Central, PICC or Fol: No Subjective No new complaints vital signs Vital Sign Date Time Temp Pulse Resp B/P (MAP) Pulse Ox O2 Delivery O2 Flow Rate FiO2 10/12/24 11:04 176/88 10/12/24 11:00 68 10/12/24 08:21 97.7 18 99 97.7 10/12/24 08:00 Nasal Cannula* 2 28 Total Intake and Output 10/11/24 10/11/24 10/12/24 15:00 23:00 07:00 Intake Total 900 ml 600 ml Balance 900 ml 600 ml medications Current Medications Medications Dose Ordered Sig/Maru Route Start Time Stop Time Status Last Admin Dose Admin Carvedilol 3.125 mg Q12HR PO 10/10/24 10:00 10/12/24 11:00 3.125 MG Hydralazine HCl 10 mg Q6HP PRN IV 10/09/24 23:30 10/11/24 16:45 10 MG Albuterol 2.5 mg Q4HPRN PRN NEB 10/09/24 23:30 Ipratropium [place] 0.5 mg Q4HPRN PRN NEB 10/09/24 23:30 Sevelamer HCl 800 mg TIDWM PO 10/10/24 08:00 10/12/24 08:05 800 MG Multivit/Ca Carb/ B Cmplx/FA/Prenat 1 tab DAILY PO 10/10/24 10:00 10/12/24 10:58 1 TAB Atorvastatin Calcium 10 mg HS PO 10/10/24 22:00 10/11/24 22:31 10 MG Diagnostic Test (Pha) 1 strip ACHS 10/10/24 07:00 10/12/24 07:23 1 STRIP Insulin Human Regular ACHS SC 10/10/24 07:00 Dextrose 50 ml UD PRN IV 10/09/24 23:30 Sodium Chloride 10 ml Q8HR IV 10/10/24 06:00 10/12/24 05:23 10 ML Acetaminophen/ Hydrocodone Bitart 1 tab Q4HP PRN PO 10/09/24 23:30 10/12/24 00:45 1 TAB Ondansetron HCl 4 mg Q4HP PRN IV 10/09/24 23:30 10/11/24 17:43 4 MG Docusate Sodium 100 mg BIDPRN PRN PO 10/09/24 23:30 Acetaminophen 650 mg Q6HP PRN PO 10/09/24 23:30 10/11/24 22:41 650 MG Nitroglycerin 0.4 mg Q5MINP PRN SL 10/09/24 23:30 Morphine Sulfate 2 mg Q30M PRN IV 10/09/24 23:30 Aspirin 81 mg DAILY PO 10/10/24 10:00 10/11/24 08:15 81 MG Nifedipine 60 mg DAILY PO 10/12/24 10:00 10/12/24 11:04 60 MG Levetiracetam 500 mg BID PO 10/11/24 22:00 10/11/24 22:30 500 MG Hydralazine HCl 50 mg Q8HR PO 10/11/24 14:00 10/11/24 22:30 50 MG objective GENERAL: The patient is an elderly female who appears to be older than her stated age. She looks chronically ill and malnourished. HEENT: Shows pale oral mucosa and conjunctivae. NECK: No jugular venous distention. LUNGS: Show bilateral crackles. CARDIOVASCULAR: Shows regular rate with 1/6 systolic murmur. ABDOMEN: Soft and nontender. No organomegaly. EXTREMITIES: Show no clubbing or cyanosis. No edema. laboratory and microbiology Laboratory Tests 10/12/24 10:00 10/12/24 05:55 Test 10/12/24 10:00 Range/Units Serum Glucose 83 74-106 mg/dL Problem List ASSESSMENT AND PLAN: * End-stage renal disease. * Pneumonia. * Mild fluid overload. * Anemia of renal disease. HD today, will remove 2.5 liters of fluid or as tolerated. She should continue intravenous antibiotics for pneumonia, respiratory therapy, oxygen supplementation as needed. We should also put her on a restriction of free water given the mild hyponatremia. For the anemia, I recommend to give her intravenous iron and we will increase the dose of Epogen during dialysis. Plan discussed with: Patient JEROME MAN MD Oct 12, 2024 11:32
[2024-10-12 14:14] LABS: Base Excess 9.5 mmol/L (-2.0-3.0)
[2024-10-12] MEDS: EPOETIN ALFA-EPBX 10,000 UNIT/1ML VIAL SC ONE (22:02)
[2024-10-13] VITALS (11 sets, daily range): BP systolic 120–156; BP diastolic 63–85; PULSE 63–76; RESP 14–19; TEMP 97.6–98.2; O2SAT 94–100
--- NOTE | 2024-10-13 06:34 | DVH ---
EXAM: XR Chest, 1 View CLINICAL INDICATION: chf TECHNIQUE: Frontal view of the chest. COMPARISON: XY CHEST PORTABLE on DOS: 10/09/24, XY CHEST PORTABLE on DOS: 09/24/24, XY CHEST PORTABLE on DOS: 09/24/24, XY CHEST PORTABLE on DOS: 09/17/24, XY CHEST XRAY 1 VIEW on DOS: 09/15/24 FINDINGS: LUNGS AND PLEURAL SPACES: See below. HEART: Cardiomegaly with mild congestion. MEDIASTINUM: Unremarkable. Normal mediastinal contour. BONES/JOINTS: Unremarkable. No acute fracture. OTHER FINDINGS: . IMPRESSION: Cardiomegaly with mild congestion.
--- NOTE | 2024-10-13 11:09 | DVHPN2 ---
Progress Note Date Seen: Oct 13, 2024 Has the PT tested + for MRSA If YES, has PT been informed?: No Medical Necessity Reason Pt with a Central, PICC or Fol: No Subjective Patient reports: No new complaints Review of Systems: HEENT:Normal, CVS:Normal, RESPIRATORY:Normal, GI:Normal, :Normal, MSK:Normal, NEURO:Normal Objective vital signs Vital Sign Date Time Temp Pulse Resp B/P (MAP) Pulse Ox O2 Delivery O2 Flow Rate FiO2 10/13/24 10:08 65 150/80 10/13/24 09:00 98.2 16 95 98.2 10/13/24 08:00 Nasal Cannula* 2 28 Total Intake and Output 10/12/24 10/12/24 10/13/24 15:00 23:00 07:00 Intake Total 420 ml 100 ml Balance 420 ml 100 ml medications Current Medications Medications Dose Ordered Sig/Maru Route Start Time Stop Time Status Last Admin Dose Admin Carvedilol 3.125 mg Q12HR PO 10/10/24 10:00 10/13/24 09:08 3.125 MG Hydralazine HCl 10 mg Q6HP PRN IV 10/09/24 23:30 10/12/24 11:54 10 MG Albuterol 2.5 mg Q4HPRN PRN NEB 10/09/24 23:30 Ipratropium [place] 0.5 mg Q4HPRN PRN NEB 10/09/24 23:30 Sevelamer HCl 800 mg TIDWM PO 10/10/24 08:00 10/13/24 09:06 800 MG Multivit/Ca Carb/ B Cmplx/FA/Prenat 1 tab DAILY PO 10/10/24 10:00 10/13/24 09:06 1 TAB Atorvastatin Calcium 10 mg HS PO 10/10/24 22:00 10/12/24 22:03 10 MG Diagnostic Test (Pha) 1 strip ACHS 10/10/24 07:00 10/13/24 06:00 1 STRIP Insulin Human Regular ACHS SC 10/10/24 07:00 Dextrose 50 ml UD PRN IV 10/09/24 23:30 Sodium Chloride 10 ml Q8HR IV 10/10/24 06:00 10/13/24 05:30 10 ML Acetaminophen/ Hydrocodone Bitart 1 tab Q4HP PRN PO 10/09/24 23:30 10/13/24 00:12 1 TAB Ondansetron HCl 4 mg Q4HP PRN IV 10/09/24 23:30 10/11/24 17:43 4 MG Docusate Sodium 100 mg BIDPRN PRN PO 10/09/24 23:30 Acetaminophen 650 mg Q6HP PRN PO 10/09/24 23:30 10/11/24 22:41 650 MG Nitroglycerin 0.4 mg Q5MINP PRN SL 10/09/24 23:30 Morphine Sulfate 2 mg Q30M PRN IV 10/09/24 23:30 Aspirin 81 mg DAILY PO 10/10/24 10:00 10/13/24 09:07 81 MG Nifedipine 60 mg DAILY PO 10/12/24 10:00 10/13/24 09:09 60 MG Levetiracetam 500 mg BID PO 10/11/24 22:00 10/13/24 09:06 500 MG Hydralazine HCl 50 mg Q8HR PO 10/11/24 14:00 10/13/24 05:30 50 MG Examination: GENERAL:Normal, HEENT:Normal, NECK:Normal, LUNGS:Normal, CVS:Normal, ABDOMEN:Normal, MSK:Normal, MSK:Abnormal (bilateral foot ulcers/cellulitis), SKIN:Normal, NEURO:Normal, :Normal laboratory and microbiology Laboratory Tests 10/12/24 10:00 10/12/24 05:55 Test 10/12/24 10:00 Range/Units Serum Glucose 83 74-106 mg/dL Microbiology Date/Time Source Procedure Growth Status 10/10/24 02:31 Nose MRSA Screen - Final Complete Problem List/Assessment/Plan Problem List/Assessment/Plan #1 Hypertensive emergency: adjust meds #2 Recent history of shingles #3 seizure disorder #4 Severe pulmonary hypertension #5 Severe tricuspid regurgitation #6 acute on chronic diastolic heart failure: dialysis repeat, dw dr Murphy #7 ESRD on hemodialysis 3 times a week #8 Vitamin D deficiency likely due to chronic renal disease #9 Chronic microcytic hypochromic anemia likely due to CKD #11 Cachexia, moderate protein calorie malnutrition, BMI 20.6 kg/m2 #12 Diffuse osseous sclerosis, 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
--- NOTE | 2024-10-13 11:22 | DVHPN2 ---
Progress Note - Dictate Date Seen: Oct 13, 2024 Has the PT tested + for MRSA If YES, has PT been informed?: No Medical Necessity Reason Pt with a Central, PICC or Fol: No Subjective No new complaints vital signs Vital Sign Date Time Temp Pulse Resp B/P (MAP) Pulse Ox O2 Delivery O2 Flow Rate FiO2 10/13/24 11:05 67 17 150/80 100 2.0 10/13/24 09:00 98.2 98.2 10/13/24 08:00 Nasal Cannula* 28 Total Intake and Output 10/12/24 10/12/24 10/13/24 15:00 23:00 07:00 Intake Total 420 ml 100 ml Balance 420 ml 100 ml medications Current Medications Medications Dose Ordered Sig/Maru Route Start Time Stop Time Status Last Admin Dose Admin Carvedilol 3.125 mg Q12HR PO 10/10/24 10:00 10/13/24 09:08 3.125 MG Hydralazine HCl 10 mg Q6HP PRN IV 10/09/24 23:30 10/12/24 11:54 10 MG Albuterol 2.5 mg Q4HPRN PRN NEB 10/09/24 23:30 Ipratropium [place] 0.5 mg Q4HPRN PRN NEB 10/09/24 23:30 Sevelamer HCl 800 mg TIDWM PO 10/10/24 08:00 10/13/24 09:06 800 MG Multivit/Ca Carb/ B Cmplx/FA/Prenat 1 tab DAILY PO 10/10/24 10:00 10/13/24 09:06 1 TAB Atorvastatin Calcium 10 mg HS PO 10/10/24 22:00 10/12/24 22:03 10 MG Diagnostic Test (Pha) 1 strip ACHS 10/10/24 07:00 10/13/24 06:00 1 STRIP Insulin Human Regular ACHS SC 10/10/24 07:00 Dextrose 50 ml UD PRN IV 10/09/24 23:30 Sodium Chloride 10 ml Q8HR IV 10/10/24 06:00 10/13/24 05:30 10 ML Acetaminophen/ Hydrocodone Bitart 1 tab Q4HP PRN PO 10/09/24 23:30 10/13/24 00:12 1 TAB Ondansetron HCl 4 mg Q4HP PRN IV 10/09/24 23:30 10/11/24 17:43 4 MG Docusate Sodium 100 mg BIDPRN PRN PO 10/09/24 23:30 Acetaminophen 650 mg Q6HP PRN PO 10/09/24 23:30 10/11/24 22:41 650 MG Nitroglycerin 0.4 mg Q5MINP PRN SL 10/09/24 23:30 Morphine Sulfate 2 mg Q30M PRN IV 10/09/24 23:30 Aspirin 81 mg DAILY PO 10/10/24 10:00 10/13/24 09:07 81 MG Levetiracetam 500 mg BID PO 10/11/24 22:00 10/13/24 09:06 500 MG Hydralazine HCl 50 mg Q8HR PO 10/11/24 14:00 10/13/24 05:30 50 MG Nifedipine 90 mg DAILY PO 10/14/24 10:00 UNV objective GENERAL: The patient is an elderly female who appears to be older than her stated age. She looks chronically ill and malnourished. HEENT: Shows pale oral mucosa and conjunctivae. NECK: No jugular venous distention. LUNGS: Show bilateral crackles. CARDIOVASCULAR: Shows regular rate with 1/6 systolic murmur. ABDOMEN: Soft and nontender. No organomegaly. EXTREMITIES: Show no clubbing or cyanosis. No edema. laboratory and microbiology Laboratory Tests 10/12/24 10:00 10/12/24 05:55 Test 10/12/24 10:00 Range/Units Serum Glucose 83 74-106 mg/dL Problem List ASSESSMENT AND PLAN: * End-stage renal disease. * Pneumonia. * Fluid overload/pulmonary edema * Anemia of renal disease. HD again tomorrow with more aggressive UF oxygen supplementation as needed. Restriction of free water given the mild hyponatremia. For the anemia intravenous iron and we will increase the dose of Epogen during dialysis. Plan discussed with: Patient JEROME MAN MD Oct 13, 2024 11:22
[2024-10-13 12:05] LABS: Base Excess 9.2 mmol/L (-2.0-3.0)
[2024-10-14] VITALS (7 sets, daily range): BP systolic 104–167; BP diastolic 59–85; PULSE 65–86; RESP 14–18; TEMP 97.9–98.1; O2SAT 95–100
[2024-10-14 06:35] LABS: Chloride 100 mmol/L (98-107); Potassium 4.8 mmol/L (3.5-5.1)
[2024-10-14 06:36] LABS: Anion Gap 7 (5-15); Carbon Dioxide 29 mmol/L (20-31)
[2024-10-14 06:37] LABS: Calcium 9.8 mg/dL (8.7-10.4)
[2024-10-14 06:42] LABS: BUN/Creatinine Ratio 2.7 (10.0-20.0); Blood Urea Nitrogen 20 mg/dL (9-23)
[2024-10-14 06:43] LABS: Glucose 69 mg/dL (74-106); Sodium 136 mmol/L (136-145)
[2024-10-14] MEDS: SODIUM CHL 0.9% 1000 ML BAG XX ONE (07:00)
[2024-10-14] MEDS: NIFEdipine ER 30 MG TAB PO SCH (09:44)
--- NOTE | 2024-10-14 11:43 | DVHPN2 ---
Progress Note - Dictate Date Seen: Oct 14, 2024 Has the PT tested + for MRSA If YES, has PT been informed?: No Medical Necessity Reason Pt with a Central, PICC or Fol: No Subjective No new complaints vital signs Vital Sign Date Time Temp Pulse Resp B/P (MAP) Pulse Ox O2 Delivery O2 Flow Rate FiO2 10/14/24 09:45 69 124/59 10/14/24 09:00 97.9 16 95 97.9 10/13/24 20:00 Nasal Cannula* 2 28 Total Intake and Output 10/13/24 10/13/24 10/14/24 15:00 23:00 07:00 Intake Total 480 ml 0 ml Output Total 0 ml Balance 480 ml 0 ml medications Current Medications Medications Dose Ordered Sig/Maru Route Start Time Stop Time Status Last Admin Dose Admin Carvedilol 3.125 mg Q12HR PO 10/10/24 10:00 10/14/24 09:45 3.125 MG Hydralazine HCl 10 mg Q6HP PRN IV 10/09/24 23:30 10/13/24 16:08 10 MG Albuterol 2.5 mg Q4HPRN PRN NEB 10/09/24 23:30 Ipratropium [place] 0.5 mg Q4HPRN PRN NEB 10/09/24 23:30 Sevelamer HCl 800 mg TIDWM PO 10/10/24 08:00 10/14/24 08:00 800 MG Multivit/Ca Carb/ B Cmplx/FA/Prenat 1 tab DAILY PO 10/10/24 10:00 10/14/24 09:42 1 TAB Atorvastatin Calcium 10 mg HS PO 10/10/24 22:00 10/13/24 21:34 10 MG Diagnostic Test (Pha) 1 strip ACHS 10/10/24 07:00 10/14/24 06:28 1 STRIP Insulin Human Regular ACHS SC 10/10/24 07:00 Dextrose 50 ml UD PRN IV 10/09/24 23:30 Sodium Chloride 10 ml Q8HR IV 10/10/24 06:00 10/14/24 06:26 10 ML Acetaminophen/ Hydrocodone Bitart 1 tab Q4HP PRN PO 10/09/24 23:30 10/13/24 16:14 1 TAB Ondansetron HCl 4 mg Q4HP PRN IV 10/09/24 23:30 10/11/24 17:43 4 MG Docusate Sodium 100 mg BIDPRN PRN PO 10/09/24 23:30 Acetaminophen 650 mg Q6HP PRN PO 10/09/24 23:30 10/11/24 22:41 650 MG Nitroglycerin 0.4 mg Q5MINP PRN SL 10/09/24 23:30 Morphine Sulfate 2 mg Q30M PRN IV 10/09/24 23:30 Aspirin 81 mg DAILY PO 10/10/24 10:00 10/14/24 09:45 81 MG Levetiracetam 500 mg BID PO 10/11/24 22:00 10/14/24 09:44 500 MG Hydralazine HCl 50 mg Q8HR PO 10/11/24 14:00 10/14/24 06:26 50 MG Nifedipine 90 mg DAILY PO 10/14/24 10:00 10/14/24 09:44 90 MG objective GENERAL: The patient is an elderly female who appears to be older than her stated age. She looks chronically ill and malnourished. HEENT: Shows pale oral mucosa and conjunctivae. NECK: No jugular venous distention. LUNGS: Show bilateral crackles. CARDIOVASCULAR: Shows regular rate with 1/6 systolic murmur. ABDOMEN: Soft and nontender. No organomegaly. EXTREMITIES: Show no clubbing or cyanosis. No edema. laboratory and microbiology Laboratory Tests 10/14/24 05:34 10/12/24 05:55 Test 10/14/24 05:34 Range/Units Serum Glucose 69 L 74-106 mg/dL Problem List ASSESSMENT AND PLAN: * End-stage renal disease. * Pneumonia. * Fluid overload/pulmonary edema * Anemia of renal disease. HD today with more aggressive UF oxygen supplementation as needed. Restriction of free water given the mild hyponatremia. For the anemia intravenous iron and we will increase the dose of Epogen during dialysis. Can be dc home after HD today Dietary Evaluation Review Comments: Renforce sodium restriction Expected Outcomes/Goals: compliant to Renal Diet Plan discussed with: Patient JEROME MAN MD Oct 14, 2024 11:43
--- NOTE | 2024-10-14 15:25 | DVHDS2 ---
Discharge Summary Date of Admission October 09, 2024 at 23:20 Date of Discharge: Oct 14, 2024 Labs/Diagnostic Data: Laboratory Results Test 10/14/24 05:42 10/14/24 05:34 10/13/24 11:36 10/12/24 14:05 POC Glucose 77 mg/dl (70-106) Sodium Level 136 mmol/L (136-145) Potassium Level 4.8 mmol/L (3.5-5.1) Chloride Level 100 mmol/L (98-107) Carbon Dioxide Level 29 mmol/L (20-31) Anion Gap 7 (5-15) Blood Urea Nitrogen 20 mg/dL (9-23) Creatinine 7.33 mg/dL (0.550-1.02) Glomerular Filtration Rate Calc 6 mL/min (>90) BUN/Creatinine Ratio 2.7 (10.0-20.0) Serum Glucose 69 mg/dL (74-106) Calcium Level 9.8 mg/dL (8.7-10.4) Blood Gas Specimen Type Arterial Blood Gas Sample Site Left brachial Blood Gas Patient Temperature 37.0 Arterial Blood Date Drawn [id number] Arterial Blood pH 7.494 (7.350-7.450) Arterial Blood Partial Pressure CO2 44.4 mmHg (32.0-45.0) Arterial Blood Partial Pressure O2 < 36.5 mmHg (83.0-108.0) Arterial Blood HCO3 33.4 mmol/L (21.0-28.0) Arterial Blood Oxygen Saturation 61.6 % (94.0-98.0) Arterial Blood Base Excess 9.2 mmol/L (-2.0-3.0) Arterial Blood Oxyhemoglobin 60.8 % (94.0-98.0) Arterial Blood Carboxyhemoglobin 0.8 % (0.5-1.5) Arterial Blood Methemoglobin 0.5 % (0.0-1.5) [place]ito Test Yes Blood Gas Total Hemoglobin 8.80 g/dL (12.0-16.0) Blood Gas Modality Room air FiO2 % 21.0 Blood Gas Critical Value Read Back Yes Blood Gas Notified Whom amaris Nath Blood Gas Notified Time [id number] Blood Gas Notified By [employer]urb[employer] Technician deion webb Blood Gas Spontaneous Rate 20 Test 10/12/24 05:55 10/10/24 14:15 10/09/24 21:35 White Blood Count 4.6 10^3/uL (4.4-10.8) Red Blood Count 2.72 10^6/uL (4.0-5.20) Hemoglobin 8.6 g/dL (12.2-16.2) Hematocrit 25.6 % (36.0-46.0) Mean Corpuscular Volume 94.4 fL (80.0-100.0) Mean Corpuscular Hemoglobin 31.7 pg (28.0-32.0) Mean Corpuscular Hemoglobin Concent 33.6 g/dL (32.0-36.0) Red Cell Distribution Width 20.2 % (11.8-14.3) Platelet Count 291 10^3/uL (140-450) Mean Platelet Volume 9.9 fL (6.9-10.8) Neutrophils (%) (Auto) 42.9 % (37.0-80.0) Lymphocytes (%) (Auto) 29.2 % (10.0-50.0) Monocytes (%) (Auto) 9.0 % (0.0-12.0) Eosinophils (%) (Auto) 14.5 % (0.0-7.0) Basophils (%) (Auto) 4.4 % (0.0-2.0) Neutrophils # (Auto) 2.0 10 ^3/uL (1.6-8.6) Lymphocytes # (Auto) 1.4 10 ^3/uL (0.4-5.4) Monocytes # (Auto) 0.4 10 ^3/uL (0-1.3) Eosinophils # (Auto) 0.7 10 ^3/uL (0-0.8) Basophils # (Auto) 0.2 10 ^3/uL (0-0.2) Nucleated Red Blood Cells 1.1 % Platelet Estimate Adequate Anisocytosis (manual) Slight Ovalocytes Few Total Bilirubin 0.2 mg/dL (0.2-1.0) Aspartate Amino Transferase (AST) 37 U/L (13-40) Alanine Aminotransferase (ALT) 17 U/L (7-40) Alkaline Phosphatase 170 U/L (46-116) Total Protein 7.1 g/dL (5.7-8.2) Albumin 2.8 g/dL (3.2-4.8) Hepatitis B Surface Antigen Negative (Negative) Hepatitis C Antibody Reactive (Negative) Troponin I High Sensitivity 10 ng/L (</=34) Other Laboratory Tests 10/14/24 05:34 10/12/24 05:55 Brief Hx & Hospital Course: SEE DICTATED NOTE Condition at Discharge: Fair Final Diagnosis/Problems List CHF Discharge Disposition: Home Discharge Instruct/Medications Diet: Renal Activity: No Restrictions, As Tolerated Follow Up/Referral: FU WITH PCP/DIALYSIS Medications: RESUME HOME MEDS Discharge Statement: "Patient was advised to return to the ER or call 911 if any headaches, dizziness, shortness of breath, chest pain, abdominal pain, bleeding, fevers, or worsening of medical condition. Patient was counseled about treatment plan, medications, possible side effects, patientverbalized understanding. All questions were answered to the best of my ability. This discharge took greater then 30 minutes in planning, reviewing documentation, counseling the patient, and discussing with other team members." ASSESSMENT ASSESSMENT Assessment CHF Date of Service: Oct 14, 2024 Billing Provider: BRANDIE SPENCE MD Common Visit Codes: [id number]/OBS DISCH DAY >30min BRANDIE SPENCE MD Oct 14, 2024 15:25
--- NOTE | 2024-10-14 15:56 | DVHDS ---
DATE OF DISCHARGE: 10/14/2024 HISTORY OF PRESENT ILLNESS: The patient is a 68-year-old lady who is admitted with history of increasing shortness of breath and has history of end-stage renal disease, on hemodialysis, seizure disorder, hypertension, and COPD. HOSPITAL COURSE: The patient had a chest x-ray that showed evidence of congestive heart failure. The patient was placed on hemodialysis. ABGs done on room air showed a pH of 7.5, pCO2 of 42, and a pO2 of 36. The patient currently is improved and will be discharged home to resume her home medications and to follow up with her dialysis and her primary care. FINAL DIAGNOSES: * Hypertensive emergency. * [id number]-[id number] diastolic heart failure. * Seizure disorder. * Severe pulmonary hypertension. * Severe tricuspid regurgitation. * COPD with exacerbation. * End-stage renal disease, on hemodialysis. * Chronic anemia. * Moderate protein malnutrition. * Acute respiratory failure. Time spent in discharge planning and review of plan with the patient and nursing was 38 minutes. MD REJI Scales/IRIS TID: [id number] RECEIPT: [id number]
[2024-10-14] MEDS ORDERED: EPOETIN ALFA-EPBX 4,000 UNIT/ML VIAL SC ONE (21:00)
== END 2024-10-14 20:10 | disposition home health service (06) | DRG 291 ==
LOC: EDBD 17:22 → ER 17:26 → TELE-EAST 23:09 → OVERFLOW 23:20 → TELE-EAST 10-10 02:04
PROVIDERS: ADMIT Internal Medicine; ATTEND Internal Medicine
PROC: 5A1D70Z Performance of Urinary Filtration, Intermittent, Less than 6 Hours Per Day (ICD-10-PCS; principal; 2024-10-12)
PROC: 5A1D70Z Performance of Urinary Filtration, Intermittent, Less than 6 Hours Per Day (ICD-10-PCS; 2024-10-14)
DX: I13.2 Hypertensive heart and chronic kidney disease with heart failure and with stage 5 chronic kidney disease, or end stage renal disease (principal); I50.33 Acute on chronic diastolic (congestive) heart failure; N18.6 End stage renal disease; J96.00 Acute respiratory failure, unspecified whether with hypoxia or hypercapnia; J44.1 Chronic obstructive pulmonary disease with (acute) exacerbation; E44.0 Moderate protein-calorie malnutrition; R64 Cachexia; E87.1 Hypo-osmolality and hyponatremia; I16.1 Hypertensive emergency; J44.0 Chronic obstructive pulmonary disease with (acute) lower respiratory infection; D63.1 Anemia in chronic kidney disease; I27.20 Pulmonary hypertension, unspecified; F17.210 Nicotine dependence, cigarettes, uncomplicated; G40.909 Epilepsy, unspecified, not intractable, without status epilepticus; E55.9 Vitamin D deficiency, unspecified; I07.1 Rheumatic tricuspid insufficiency; Z99.2 Dependence on renal dialysis; Z99.3 Dependence on wheelchair; Z88.8 Allergy status to other drugs, medicaments and biological substances; Z68.20 Body mass index [BMI] 20.0-20.9, adult; Z79.899 Other long term (current) drug therapy
CPT/HCPCS: 36415; 36600; 71045; 80048; 80053; 82805; 82962; 84484; 85025; 86803; 87081; 87340; 90935; 97110; 97116; 97163; 97530; G0378; J1642; J2405

== ENCOUNTER 2024-10-18 02:00 | Inpatient (IN) | payer MEDICARE, MEDICAID ==
[2024-10-18] VITALS (60 sets, daily range): BP systolic 128–204; BP diastolic 58–108; PULSE 77–109; RESP 12–34; TEMP 97–98.5; O2SAT 92–100
[~2024-10-18] VITALS: Ht 165.1 cm; Wt 47.1 kg
[2024-10-18 02:48] LABS: Base Excess 2.9 mmol/L (-2.0-3.0)
[2024-10-18 03:05] LABS: Chloride 103 mmol/L (98-107); Potassium 3.7 mmol/L (3.5-5.1); Sodium 142 mmol/L (136-145)
[2024-10-18 03:06] LABS: Anion Gap 11 (5-15); Calcium 9.9 mg/dL (8.7-10.4); Carbon Dioxide 28 mmol/L (20-31)
[2024-10-18 03:12] LABS: Magnesium 2.2 mg/dL (1.6-2.6)
--- NOTE | 2024-10-18 03:20 | ED.PDOC ---
History of Present Illness HPI Comments 68-year-old female is brought in by ambulance for complaint of shortness of breath since 1400, yesterday. Per EMS report, family called on patient's behalf after, initially, being medically cleared by previous EMS team that visited, earlier, due to increased work of breathing since then. Patient was found on baseline 2 L/min home oxygen with a saturation of 91% and diminished lung sounds in bilateral lower lobes. All remaining vitals were noted to have been stable and within normal limits. She was given 1 DuoNeb treatment and an additional 2.5 mg of albuterol, with positive improvement. Patient has no reported chest pain, cough, congestion, fever, chills, or further associated symptoms. She has a additional history of acute respiratory failure, tricuspid regurgitation, chronic anemia, CHF, CVA with residual deficits, seizures, hypertension, hypertension, and end-stage renal disease with hemodialysis on Friday, Friday, and Friday, with last dialysis session going to completion on October 15, 2024. Chief Complaint: Shortness of Breath Time Seen by MD: 02:10 Primary Care Provider: AMANDA Reviewed Notes: Nurses Notes, Cotton Tier Notes, Medications, Allergies Allergies: Coded Allergies: Diphenhydramine (Verified Allergy, Unknown, 09/16/24) Gabapentin (Verified Allergy, Unknown, 09/16/24) Home Meds Active Scripts Phenytoin Sodium (DILANTIN CAPSULE) 100 Mg Cp, 100 MG PO DAILY for 30 Days, #30 CAP 1 Refill Prov:JEREMÍASFRANCISCO BARBER[facility]24 Ergocalciferol (VITAMIN D 77977 UNIT) 50,000 [place], [address] UNIT PO weekly for 12 Days, #12 CAP Prov:JEREMÍASFRANCISCO BARBER[facility] 09/21/24 Levetiracetam (KEPPRA TABLET) 500 Mg Tb, 500 MG PO BID for 30 Days, #60 TAB 2 Ref[facility] Prov[facility] 09/[facility]/24 Hydralazine HCl (Hydralazine HCl) 25 Mg Tab, 25 MG PO Q8HR for 30 Days, #90 TAB 2 Refills Prov:FRANCISCO WOODRUFF[facility] 09/21/24 Nifedipine (Nifedipine Er) 60 Mg Tab, 1 TAB PO DAILY for 30 Days, #30 TAB 2 Refills Prov:FARCAROLEE BARBER 09/21/24 Reported Medications Metoprolol Tartrate (Metoprolol Tartrate) 100 Mg Tab, 100 MG PO DAILY 10/18/24 Discontinued Reported Medications Phenytoin Sodium (Dilantin) 100 Mg Cap 08/05/11 Discontinued Scripts Carvedilol (Carvedilol) 6.25 Mg Tab, 1 TAB PO BID for 60 Days, #120 TAB 1 Refill Prov:CAROLEE WOODRUFF 09/30/24 Hydralazine Hcl (Hydralazine Hcl) 50 Mg Tab, 1 TAB PO TID for 60 Days, #180 TAB 2 Refills Prov:CAROLEE WOODRUFF 09/30/24 Nifedipine (Nifedipine Er) 90 Mg Tab, 1 TAB PO DAILY for 60 Days, #60 TAB 2 Refills Prov:CAROLEE WOODRUFF 09/30/24 Information Source: Emergency Med Personnel Mode of Arrival: EMS Severity: Moderate Timing: Hours Duration: Since onset Prehospital treatment: 12 Lead EKG, Breathing Tx, Auto Body Man, Oxygen Review of Systems: Unable to obtain due to altered mental status Vital Signs Vital Signs Date Time Temp Pulse Resp B/P (MAP) Pulse Ox O2 Delivery O2 Flow Rate FiO2 10/18/24 07:15 98.0 86 20 182/90 99 2.0 28 98.0 10/18/24 07:15 Nasal Cannula* Physical Exam General: Awake, alert No acute distress. Skin: Skin in warm, dry and intact. Appropriate color for ethnicity. HEENT: The head is normocephalic and atraumatic. Conjunctivae are clear without exudates or hemorrhage. Sclera is non-icteric. EOM are intact. No signs of nystagmus. Eyelids are normal in appearance without swelling or lesions. Oral mucosa is pink and moist Neck: The neck is supple with normal range of motion. No JVD. Cardiac: Rapid heart rate and regular rhythm. No murmurs, gallops, or rubs are auscultated. Respiratory: No signs of respiratory distress. Lung sounds are clear in all lobes bilaterally without rales, rhonchi, or wheezes. Abdominal: Abdomen is soft, non-tender without distention, guarding or rigidity. Bowel sounds are present and normoactive in all four quadrants. Extremities: Upper and lower extremities are atraumatic in appearance without deformity or edema. Neurological: Coarse tremors. Speech is not clear. Patient is following some commands intermittently The patient is awake and alert. There is no facial asymmetry. Oriented to person only. 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 Was a procedure done?: No EKG EKG : Pulse Rate (adult): 104 [place]: Normal Cardiac Rhythm: ST Block: None Hypertrophy: None ST: Normal Comments No STEMI Differential Dx Considerations may include: Differential diagnoses considered includebut arenot limited to acute Bronchitis, Asthma, COPD, Pneumothorax, PE, CHF, Pulmonary HTN, Anemia, CO Poisoning, Methemoglobinemia, Hyperventilation, Metabolic Acidosis, Pulmonary Edema, Pneumonia, ACS, Pericardial Tamponade, Anxiety, other X-Ray, Labs, Meds, VS Vital Signs Date Time Temp Pulse Resp B/P (MAP) Pulse Ox O2 Delivery O2 Flow Rate FiO2 10/18/24 07:15 98.0 86 20 182/90 99 2.0 28 98.0 10/18/24 07:15 98.0 86 20 182/90 (120) 99 98.0 10/18/24 07:15 86 20 99 Nasal Cannula* 2 28 10/18/24 06:13 193/82 10/18/24 06:00 90 25 193/91 (125) 98 10/18/24 05:00 90 19 188/91 (123) 98 10/18/24 04:52 98 20 98 Nasal Cannula* 2 28 10/18/24 03:20 104 10/18/24 02:59 99 22 98 Nasal Cannula* 2 28 10/18/24 02:59 98.7 99 22 171/78 (109) 98 98.7 10/18/24 02:07 99.0 100 24 153/81 (105) 92 99.0 10/18/24 02:04 104 Lab Test 10/18/24 04:45 10/18/24 02:45 10/18/24 02:40 Range/Units Influenza Type A Antigen Negative Negative Influenza Type B Antigen Negative Negative SARS-CoV-2 Antigen (Rapid) Negative NEGATIVE White Blood Count 7.4 # 4.4-10.8 10^3/uL Red Blood Count 2.91 L 4.0-5.20 10^6/uL Hemoglobin 9.2 L 12.2-16.2 g/dL Hematocrit 27.2 L 36.0-46.0 % Mean Corpuscular Volume 93.6 80.0-100.0 fL Mean Corpuscular Hemoglobin 31.5 28.0-32.0 pg Mean Corpuscular Hemoglobin Concent 33.6 32.0-36.0 g/dL Red Cell Distribution Width 18.6 H 11.8-14.3 % Platelet Count 304 140-450 10^3/uL Mean Platelet Volume 8.4 6.9-10.8 fL Neutrophils (%) (Auto) 45.7 37.0-80.0 % Lymphocytes (%) (Auto) 35.2 10.0-50.0 % Monocytes (%) (Auto) 12.4 H 0.0-12.0 % Eosinophils (%) (Auto) 4.8 0.0-7.0 % Basophils (%) (Auto) 1.9 0.0-2.0 % Neutrophils # (Auto) 3.4 1.6-8.6 10 ^3/uL Lymphocytes # (Auto) 2.6 0.4-5.4 10 ^3/uL Monocytes # (Auto) 0.9 0-1.3 10 ^3/uL Eosinophils # (Auto) 0.4 0-0.8 10 ^3/uL Basophils # (Auto) 0.1 0-0.2 10 ^3/uL Nucleated Red Blood Cells 0.1 % Sodium Level 142 # 136-145 mmol/L Potassium Level 3.7 3.5-5.1 mmol/L Chloride Level 103 98-107 mmol/L Carbon Dioxide Level 28 20-31 mmol/L Anion Gap 11 5-15 Blood Urea Nitrogen 29 H 9-23 mg/dL Creatinine 7.25 H 0.550-1.02 mg/dL Glomerular Filtration Rate Calc 6 >90 mL/min BUN/Creatinine Ratio 4.0 L 10.0-20.0 Serum Glucose 108 H 74-106 mg/dL Lactic Acid Level 1.0 0.4-2.0 mmol/L Calcium Level 9.9 8.7-10.4 mg/dL Magnesium Level 2.2 1.6-2.6 mg/dL Troponin I High Sensitivity 13 </=34 ng/L B-Type Natriuretic Peptide 572.54 0-100 pg/mL Blood Gas Specimen Type Arterial Blood Gas Sample Site Left radial Blood Gas Patient Temperature 37.0 Arterial Blood Date Drawn [id number] Arterial Blood pH 7.485 H 7.350-7.450 Arterial Blood Partial Pressure CO2 35.8 32.0-45.0 mmHg Arterial Blood Partial Pressure O2 83.4 83.0-108.0 mmHg Arterial Blood HCO3 26.4 21.0-28.0 mmol/L Arterial Blood Oxygen Saturation 96.0 94.0-98.0 % Arterial Blood Base Excess 2.9 -2.0-3.0 mmol/L Arterial Blood Oxyhemoglobin 94.4 94.0-98.0 % Arterial Blood Carboxyhemoglobin 1.2 0.5-1.5 % Arterial Blood Methemoglobin 0.5 0.0-1.5 % Hipolito Test Modified Blood Gas Total Hemoglobin 9.90 L 12.0-16.0 g/dL Blood Gas Liter Flow 2.00 Blood Gas Modality Nasal cannula FiO2 % 28.0 Current Medications Medications (Trade) Dose Ordered Sig/Maru Route Start Time Stop Time Status Last Admin Ceftriaxone Sodium 50 ml @ 100 mls/hr ONCE ONCE IV 10/18/24 04:15 10/18/24 04:44 DC 10/18/24 05:30 Hydralazine HCl (Apresoline Injection) 5 mg ONCE ONCE IV 10/18/24 05:45 10/18/24 05:46 DC 10/18/24 06:[address] [address] Ph: [phone] DIAGNOSTIC IMAGING Diagnostic Imaging Report : [id number] Signed PATIENT: SUNIL CHAVES ACCT: [id number] UNIT: [id number] : 1955 LOC: ER ROOM / BED: / AGE / SEX: 68 / F ADM STATUS: REG ER SERVICE 9 ORDERING PHYSICIAN: LINDSAY MCCURDY MD PROCEDURE(s): CXR1 - CHEST XRAY 1 VIEW REASON: Shortness of breath ORDER NUMBER(s): [id number], ACCESSION NUMBER(s): [id number] CHEST RADIOGRAPH Indication: Shortness of breath Technique: Single frontal view of the chest was obtained COMPARISON: XY CHEST PORTABLE on DOS: 10/13/24, XY CHEST PORTABLE on DOS: 10/09/24, XY CHEST PORTABLE on DOS: 09/24/24, XY CHEST PORTABLE on DOS: 09/24/24, XY CHEST PORTABLE on DOS: 09/17/24 FINDINGS: Lines and Tubes: None Lungs: Multifocal airspace disease. Pleura: No effusion. No pneumothorax. Cardiomediastinal contours: Cardiomegaly. Bones: Unremarkable IMPRESSION: Multifocal airspace disease, not significantly changed since 10/13/2024. ATED BY: ABRAHAN HUNTLEY MD DICTATED DATE/TIME: 10/18/24340 SIGNED BY: ABRAHAN HUNTLEY MD SIGNED DATE/TIME: 10/18/24340 CC: Time of 1ST Reevaluation: 02:40 Reevaluation 1ST: Unchanged Patient Education/Counseling: Other (Need for admission) Family Education/Counseling: No Family Present Sepsis Sepsis Reasesment Focused Exam Orders: Laboratory Tests 10/18/24 02:45: Lactic Acid Level 1.0 Departure 1 Departure Time of Disposition: 04:08 Impression: Primary Impression: Shortness of breath Additional Impressions: Pneumonia Altered mental status Disposition: ADMITTED INPATIENT Condition: Stable Comments 68 f presents with SOB, AMS of unknown origin, CXR suggestive of worsening pneumonia vs pulmonary edema. Patient has ESRD on dialysis. Patient admitted to hospitalist service for further treatment, evaluation and monitoring. Extensive evaluation was performed in attempt to identify or rule out: (See differential diagnosis section) The following tests were ordered, and results were reviewed by me and discussed with patient: (See diagnostic results section) The following test were independently interpreted by me: EKG I reviewed and agreed with the following test results read by other providers: N/A I reviewed the following notes from the pt's past medical encounters: September 09, 2024, September 11, 2024, September 24, 2024, and October 09, 2024 encounters for shingles, metabolic encephalopathy, acute hypovolemic shock, and shortness of breath, respectively. Additional information was gathered from interviewing the following independent historians: EMS personnel Discussion of management or test interpretation with external physician/other qualified health floor care specialist: N/A Decision regarding hospitalization or escalation of hospital level of care: Risk and benefits of admission for further treatment of patient's condition was considered. Due to patient's current clinical condition, high risk of decline and poor outcome if discharged and need for further inpatient management and monitoring, patient will be admitted to the hospital. Drug therapy requiring intensive monitoring for toxicity: N/A Parenteral controlled substances: N/A Decision regarding elective major surgery with identified patient or procedure risk factors: N/A Decision regarding emergency major surgery: N/A Decision not to resuscitate or to de-escalate care because of poor prognosis: N/A Diagnosis or treatment significantly limited by social determinants of health: N/A Critical Care Note Critical Care Time?: No Stability Stability form required: No Heart Score Heart Score: Heart Score Response (Comments) Value History Moderate Suspicious 1 EKG Normal 0 Age >65 2 Risk Factors >3 or Hx ASHD 2 Troponin Normal limit 0 Total 5 I personally scribed for LINDSAY MCCURDY MD ([email or web address]) on 10/18/24 at 03:20. Electronically submitted by Adam Alford ([email or web address]). I personally scribed for LINDSAY MCCURDY MD ([email or web address]) on 10/18/24 at 04:03. Electronically submitted by Adam Alford ([email or web address]). LINDSAY MCCURDY MD Oct 18, 2024 03:20
[2024-10-18 03:28] LABS: Basophils # (auto) 0.1 10 ^3/uL (0-0.2); Basophils % (auto) 1.9 % (0.0-2.0); Eosinophils # (auto) 0.4 10 ^3/uL (0-0.8); Eosinophils % (auto) 4.8 % (0.0-7.0); Hematocrit 27.2 % (36.0-46.0); Hemoglobin 9.2 g/dL (12.2-16.2); Lymphocytes # (auto) 2.6 10 ^3/uL (0.4-5.4); Lymphocytes % (auto) 35.2 % (10.0-50.0); Mean Corpuscular Hemoglobin 31.5 pg (28.0-32.0); Mean Corpuscular Hgb Conc. 33.6 g/dL (32.0-36.0); Mean Corpuscular Volume 93.6 fL (80.0-100.0); Monocytes # (auto) 0.9 10 ^3/uL (0-1.3); Monocytes % (auto) 12.4 % (0.0-12.0); Neutrophils # (auto) 3.4 10 ^3/uL (1.6-8.6); Neutrophils % (auto) 45.7 % (37.0-80.0); Nucleated Red Blood Cells % 0.1 %; Platelet Count (auto) 304 10^3/uL (140-450); Red Blood Cells 2.91 10^6/uL (4.0-5.20); Red Cell Distribution Width 18.6 % (11.8-14.3); White Blood Cell 7.4 10^3/uL (4.4-10.8)
[2024-10-18 03:33] LABS: Blood Urea Nitrogen 29 mg/dL (9-23); Glucose 108 mg/dL (74-106)
--- NOTE | 2024-10-18 03:44 | DVH ---
CHEST RADIOGRAPH Indication: Shortness of breath Technique: Single frontal view of the chest was obtained COMPARISON: XY CHEST PORTABLE on DOS: 10/13/24, XY CHEST PORTABLE on DOS: 10/09/24, XY CHEST PORTABLE on DOS: 09/24/24, XY CHEST PORTABLE on DOS: 09/24/24, XY CHEST PORTABLE on DOS: 09/17/24 FINDINGS: Lines and Tubes: None Lungs: Multifocal airspace disease. Pleura: No effusion. No pneumothorax. Cardiomediastinal contours: Cardiomegaly. Bones: Unremarkable IMPRESSION: Multifocal airspace disease, not significantly changed since 10/13/2024.
--- NOTE | 2024-10-18 05:14 | DVH ---
EXAM: CT Head Without Intravenous Contrast CLINICAL INDICATION: ams TECHNIQUE: Axial computed tomography images of the head/brain without intravenous contrast. This CT exam was performed using one or more of the following dose reduction techniques: automated exposure control, adjustment of the mA and/or kV according to patient size, and/or use of iterative reconstru ction technique. CONTRAST: COMPARISON: CT HEAD WITHOUT CONTRAST on DOS: 09/25/24, CT HEAD WITHOUT CONTRAST on DOS: 09/12/24, CT H EAD WITHOUT CONTRAST on DOS: 09/11/24 FINDINGS: BRAIN AND EXTRA-AXIAL SPACES: The cerebral and cerebellar sulci are prominent consistent with brain atrophy. Areas of decreased attenuation in the deep cerebral white matter are consistent with small vessel ischemic/degenerative changes. No acute intracranial hemorrhage, midline shift or mass effec t. If symptoms persist, further evaluation with MRI is recommended. BONES/JOINTS: Unremarkable. No acute fracture. SOFT TISSUES: Unremarkable. SINUSES: Unremarkable as visualized. No acute sinusitis. MASTOID AIR CELLS: Unremarkable as visualized. No mastoid effusion. OTHER FINDINGS: . . IMPRESSION: 1. Generalized brain atrophy. 2. Small vessel ischemic/degenerative changes. 3. No acute intracranial hemorrhage, midline shift or mass effect. If symptoms persist, further eval uation with MRI is recommended.
[2024-10-18 05:26] LABS: COVID19 ANTIGEN SOFIA FIA NEGATIVE (NEGATIVE); Rapid Influenza A Negative (Negative); Rapid Influenza B Negative (Negative)
[2024-10-18] MEDS: cefTRIAXone 1GM/50ML D5W 50 ML IV ONE (05:30)
[2024-10-18] MEDS: hydrALAZINE HCL 20 MG/ML VL IV ONE (06:13)
--- NOTE | 2024-10-18 06:41 | ECG ---
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
[2024-10-18] MEDS ORDERED: METO-159 PO (07:01)
[2024-10-18] MEDS ORDERED: MORPHINE SULFATE INJ 2 MG/ml SYRG IV PRN (07:30)
[2024-10-18] MEDS ORDERED: DOCUSATE SOD 100 MG CAP PO PRN (07:30)
[2024-10-18] MEDS ORDERED: HYDROcodone-ACET 5/325MG TAB PO PRN (07:30)
[2024-10-18] MEDS ORDERED: ACETAMINOPHEN 325 MG TAB PO PRN (07:30)
[2024-10-18] MEDS ORDERED: ONDANSETRON HCL 4 MG/2 ML VIAL IV PRN (07:30)
[2024-10-18] MEDS ORDERED: NITROGLYCERIN 0.4 MG SL TAB SL PRN (07:30)
--- NOTE | 2024-10-18 07:54 | DVHHP2 ---
History of Present Illness Reason for Visit: Shortness of breath History of Present Illness Cheryl Wright is a 68-year-old female with past medial history of ESRD on HD, seizures, hypertension, CHF, CVA, anemia, and COPD, who was brought into the hospital by EMS for shortness of breath. On my assessment patient is Alert and oriented x 1. She is able to state her name, but mostly non-verbal. When asked questions sometimes she does not answer and sometimes she will just state her name. She will follow commands intermittently. She did smile after asking multiple times, but did not stick out her tongue. When asked to squeeze my hand she lightly attempted to on the right and did not try on the left. She could move her toes on the right, but not on the left. I called and spoke with her sister, who she lives with, she stated that this is not her normal. Usually she is speaking normal and is able to complete her ADLs like feeding herself on her own. She states she started to become confused last night, that she had to feed her dinner, and this prompted her to call EMS. 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: CVA Heme/Onc: Anemia NOS Renal/: Chronic renal failure (on HD M,W,F) Past Surgical History: None Smoke: No ALCOHOL: none Drugs: None Lives: with Family Domestic Violence: Neg Review of Systems Constitutional: No: Fever, Chills, Sweats, Weakness, Malaise, Other Eyes: No: Pain, Vision change, Conjunctivae inflammation, Eyelid inflammation, Other, Redness ENT: No: Ear pain, Ear discharge, Nose pain, Nose discharge, Nose congestion, Mouth pain, Mouth swelling, Throat pain, Throat swelling, Other Respiratory: Shortness of breath, SOB with excertion; No: Cough, Dry, Wheezing, Hemoptysis, Pleuritic Pain, Sputum, Wheezing, Other Cardiovascular: No: Chest Pain, Palpitations, Orthopnea, Paroxysmal Noc. Dyspnea, Edema, Lt Headedness, Other Gastrointestinal: No: Nausea, Vomiting, Abdominal Pain, Diarrhea, Constipation, Melena, Hematochezia, Other Genitourinary: No Dysuria, No Frequency, No Incontinence, No Hematuria, No Retention, No Other Musculoskeletal: No: other, neck pain, shoulder pain, arm pain, back pain, hand pain, leg pain, foot pain Skin: No: Rash, Lesions, Jaundice, Bruising, Other Neurological: Weakness, Incoordination, Change in speech, Confusion; No: Numbness, Seizures, Other Allergies: Coded Allergies: Diphenhydramine (Verified Allergy, Unknown, 09/16/24) Gabapentin (Verified Allergy, Unknown, 09/16/24) Medications Current Medications Medications Dose Ordered Sig/Maru Route Start Time Stop Time Status Last Admin Dose Admin Hydralazine HCl 25 mg Q8HR PO 10/18/24 14:00 Patient Own Medication 1 tab DAILY PO 10/18/24 10:00 UNV Nifedipine 60 mg DAILY PO 10/18/24 10:00 Sodium Chloride 10 ml Q8HR IV 10/18/24 14:00 UNV Acetaminophen/ Hydrocodone Bitart 1 tab Q4HP PRN PO 10/18/24 07:30 UNV Ondansetron HCl 4 mg Q4HP PRN IV 10/18/24 07:30 UNV Docusate Sodium 100 mg BIDPRN PRN PO 10/18/24 07:30 UNV Acetaminophen 650 mg Q6HP PRN PO 10/18/24 07:30 UNV Nitroglycerin 0.4 mg Q5MINP PRN SL 10/18/24 07:30 UNV Morphine Sulfate 2 mg Q30M PRN IV 10/18/24 07:30 UNV Levetiracetam 500 mg BID PO 10/18/24 10:00 UNV Patient Own Medication 100 mg DAILY PO 10/18/24 10:00 UNV Exam Vital Signs Vital Signs Date Time Temp Pulse Resp B/P (MAP) Pulse Ox O2 Delivery O2 Flow Rate FiO2 10/18/24 07:15 98.0 86 20 182/90 (120) 99 98.0 10/18/24 07:15 Nasal Cannula* 2 28 General Appearance: Alert, Other HEENT: Atraumatic, PERRLA Respiratory: Other (Diminsihed breath sounds) Cardiovascular: Regular rate, Normal S1, Normal S2 Abdominal: Normal bowel sounds, Soft, No tenderness Extremities: No clubbing, No cyanosis, No edema, Normal pulses Skin: No rashes, No breakdown, No significant lesion Neuro: Other (Patient unable to stand, change in speech) Psych/Mental Status: Other (Difficult to assess mental status) Labs/Xrays Labs Test 10/18/24 04:45 6/9/25 02:45 10/18/24 02:40 Range/Units Influenza Type A Antigen Negative Negative Influenza Type B Antigen Negative Negative SARS-CoV-2 Antigen (Rapid) Negative NEGATIVE White Blood Count 7.4 # 4.4-10.8 10^3/uL Red Blood Count 2.91 L 4.0-5.20 10^6/uL Hemoglobin 9.2 L 12.2-16.2 g/dL Hematocrit 27.2 L 36.0-46.0 % Mean Corpuscular Volume 93.6 80.0-100.0 fL Mean Corpuscular Hemoglobin 31.5 28.0-32.0 pg Mean Corpuscular Hemoglobin Concent 33.6 32.0-36.0 g/dL Red Cell Distribution Width 18.6 H 11.8-14.3 % Platelet Count 304 140-450 10^3/uL Mean Platelet Volume 8.4 6.9-10.8 fL Neutrophils (%) (Auto) 45.7 37.0-80.0 % Lymphocytes (%) (Auto) 35.2 10.0-50.0 % Monocytes (%) (Auto) 12.4 H 0.0-12.0 % Eosinophils (%) (Auto) 4.8 0.0-7.0 % Basophils (%) (Auto) 1.9 0.0-2.0 % Neutrophils # (Auto) 3.4 1.6-8.6 10 ^3/uL Lymphocytes # (Auto) 2.6 0.4-5.4 10 ^3/uL Monocytes # (Auto) 0.9 0-1.3 10 ^3/uL Eosinophils # (Auto) 0.4 0-0.8 10 ^3/uL Basophils # (Auto) 0.1 0-0.2 10 ^3/uL Nucleated Red Blood Cells 0.1 % Sodium Level 142 # 136-145 mmol/L Potassium Level 3.7 3.5-5.1 mmol/L Chloride Level 103 98-107 mmol/L Carbon Dioxide Level 28 20-31 mmol/L Anion Gap 11 5-15 Blood Urea Nitrogen 29 H 9-23 mg/dL Creatinine 7.25 H 0.550-1.02 mg/dL Glomerular Filtration Rate Calc 6 >90 mL/min BUN/Creatinine Ratio 4.0 L 10.0-20.0 Serum Glucose 108 H 74-106 mg/dL Lactic Acid Level 1.0 0.4-2.0 mmol/L Calcium Level 9.9 8.7-10.4 mg/dL Magnesium Level 2.2 1.6-2.6 mg/dL Troponin I High Sensitivity 13 </=34 ng/L B-Type Natriuretic Peptide 572.54 0-100 pg/mL Blood Gas Specimen Type Arterial Blood Gas Sample Site Left radial Blood Gas Patient Temperature 37.0 Arterial Blood Date Drawn [id number] Arterial Blood pH 7.485 H 7.350-7.450 Arterial Blood Partial Pressure CO2 35.8 32.0-45.0 mmHg Arterial Blood Partial Pressure O2 83.4 83.0-108.0 mmHg Arterial Blood HCO3 26.4 21.0-28.0 mmol/L Arterial Blood Oxygen Saturation 96.0 94.0-98.0 % Arterial Blood Base Excess 2.9 -2.0-3.0 mmol/L Arterial Blood Oxyhemoglobin 94.4 94.0-98.0 % Arterial Blood Carboxyhemoglobin 1.2 0.5-1.5 % Arterial Blood Methemoglobin 0.5 0.0-1.5 % Hipolito Test Modified Blood Gas Total Hemoglobin 9.90 L 12.0-16.0 g/dL Blood Gas Liter Flow 2.00 Blood Gas Modality Nasal cannula FiO2 % 28.0 CHEST RADIOGRAPH FINDINGS: Lines and Tubes: None Lungs: Multifocal airspace disease. Pleura: No effusion. No pneumothorax. Cardiomediastinal contours: Cardiomegaly. Bones: Unremarkable IMPRESSION: Multifocal airspace disease, not significantly changed since 10/13/2024. EXAM: CT Head Without Intravenous Contrast FINDINGS: BRAIN AND EXTRA-AXIAL SPACES: The cerebral and cerebellar sulci are prominent consistent with brain atrophy. Areas of decreased attenuation in the deep cerebral white matter are consistent with small vessel ischemic/degenerative changes. No acute intracranial hemorrhage, midline shift or mass effect. If symptoms persist, further evaluation with MRI is recommended. BONES/JOINTS: Unremarkable. No acute fracture. SOFT TISSUES: Unremarkable. SINUSES: Unremarkable as visualized. No acute sinusitis. MASTOID AIR CELLS: Unremarkable as visualized. No mastoid effusion. OTHER FINDINGS: . . IMPRESSION: 1. Generalized brain atrophy. 2. Small vessel ischemic/degenerative changes. 3. No acute intracranial hemorrhage, midline shift or mass effect. If symptoms persist, further evaluation with MRI is recommended. 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 Katherine Cisneros -Da CONS 10/18/24 Transmitted [place] 07:01 Nifedipine Er PHA 10/18/24 In Process (Procardia Xl 10:00 Admit ADMIT 10/18/24 Transmitted 07:19 Code Status CODE 10/18/24 Transmitted 07:19 Sodium Chloride Lock PHA 10/18/24 Logged (Saline Lock Ns) 14:00 Hydrocodone-Acet PHA 10/18/24 Logged 5/325mg Tab ([place] 07:30 Ondansetron Hcl PHA 10/18/24 Logged (Zofran) 07:30 Docusate Sodium PHA 10/18/24 Logged Capsule (Colace 07:30 Fall Risk Precautions [facility] 10/18/[address] 07:19 Complete Blood Count LAB 10/19/24 Verified 04:00 Comprehensive LAB 10/19/24 Verified Metabolic Panel 04:00 Condition: Critical [facility] 10/18/24 In Process 07:19 Acetaminophen Tablet [facility] 10/18/24 Logged (Tylenol Tablet) 07:30 Nitroglycerin PHA 10/18/24 Logged Sublingual (Ntrostat 07:30 Morphine Sulfate PHA 10/18/24 Logged Injection 07:30 Stat Ekg For Chest [facility] 10/18/24 In Process Pain 07:19 Notify Of Changes [facility] 10/18/24 In Process From Base 07:19 Rn Case Manager Hospice For [facility] 10/18/24 In Process 24 Hours 07:19 Emergency Dysrhythmia [facility] 10/18/24 In Process Protocol 07:19 Rhythm Strips Once [facility] 10/18/24 In Process Every Shift 07:19 Oxygen By Nasal RT 10/18/24 Transmitted Cannula 07:19 Levetiracetam Tablet [facility] 10/18/24 Logged (Keppra Tablet) 10:00 (Nf) Metoprolol PHA 10/18/24 Logged Tartrate 10:00 Ceftriaxone Ivpb PHA 10/19/24 Verified Rocephin 09:00 Azithromycin 500mg/ PHA 10/18/24 Verified 250ml (Zithromax 50 10:00 Ipratropium Medneb PHA 10/18/24 Verified (Atrovent Medneb) 07:30 Albuterol Medneb PHA 10/18/24 Verified (Ventolin Medneb) 07:30 Date of Service: Oct 18, 2024 Billing Provider: ANTHONY STEWART Common Visit Codes: [id number] INP/OBS CARE (HIGH) ANTHONY STEWART Oct 18, 2024 07:54
[2024-10-18] MEDS ORDERED: levETIRAcetam 500 MG TAB PO SCH (10:00)
[2024-10-18] MEDS: NIFEdipine ER 30 MG TAB PO SCH (10:00)
[2024-10-18] MEDS ORDERED: PATIENTS OWN MEDICATION (Nifedipine (Nifedipine Er) 1 TAB) PO SCH (10:00)
[2024-10-18] MEDS: AZITHROMYCIN 500MG/ 250ML 250 ML IV SCH (11:00)
[2024-10-18] MEDS: levETIRAcetam 500 mg/100ml 100 ML IV SCH (11:00)
[2024-10-18] MEDS: NICARDIPINE HCL IN SODIUM CHLO 200 ML IV SCH (11:01)
[2024-10-18] MEDS: hydrALAZINE HCL 25 MG TAB PO SCH (14:00)
[2024-10-18] MEDS: SODIUM CHLOR 0.9% PF (SALINE LOCK) 10ML VIAL/SYR IV SCH (14:21)
[2024-10-18] MEDS: LORazepam 2MG/ML-1ML VIAL IV ONE (14:28)
[2024-10-18] MEDS: IRON SUCROSE COMPLEX 110 ML IV SCH (14:28)
--- NOTE | 2024-10-18 14:36 | DVHPN2 ---
Progress Note Date Seen: Oct 18, 2024 Medical Necessity Reason Pt with a Central, PICC or Fol: No Subjective Patient reports: No new complaints Review of Systems: HEENT:Normal, CVS:Normal, RESPIRATORY:Normal, GI:Normal, :Normal, MSK:Normal, NEURO:Normal Objective vital signs Vital Sign Date Time Temp Pulse Resp B/P (MAP) Pulse Ox O2 Delivery O2 Flow Rate FiO2 10/18/24 14:28 141/67 10/18/24 12:37 92 10/18/24 08:00 21 96 Nasal Cannula* 1 10/18/24 07:15 98.0 98.0 Total Intake and Output 10/17/24 10/17/24 10/18/24 14:59 22:59 06:59 Intake Total 50 ml Balance 50 ml medications Current Medications Medications Dose Ordered Sig/Maru Route Start Time Stop Time Status Last Admin Dose Admin Hydralazine HCl 25 mg Q8HR PO 10/18/24 14:00 Patient Own Medication 1 tab DAILY PO 10/18/24 10:00 UNV Nifedipine 60 mg DAILY PO 10/18/24 10:00 Sodium Chloride 10 ml Q8HR IV 10/18/24 14:00 10/18/24 14:21 10 ML Acetaminophen/ Hydrocodone Bitart 1 tab Q4HP PRN PO 10/18/24 07:30 Ondansetron HCl 4 mg Q4HP PRN IV 10/18/24 07:30 Docusate Sodium 100 mg BIDPRN PRN PO 10/18/24 07:30 Acetaminophen 650 mg Q6HP PRN PO 10/18/24 07:30 Nitroglycerin 0.4 mg Q5MINP PRN SL 10/18/24 07:30 Morphine Sulfate 2 mg Q30M PRN IV 10/18/24 07:30 Metoprolol Tartrate 100 mg DAILY PO 10/19/24 10:00 Ceftriaxone Sodium 50 ml @ 100 mls/hr DAILY@09 IV 10/19/24 09:00 Azithromycin 250 ml @ 125 mls/hr DAILY IV 10/18/24 10:00 10/18/24 11:00 125 MLS/HR Ipratropium [place] 0.5 mg Q4HPRN PRN NEB 10/18/24 07:30 Albuterol 2.5 mg Q4HPRN PRN NEB 10/18/24 07:30 Levetiracetam 100 ml @ 400 mls/hr BID IV 10/18/24 10:00 10/18/24 11:00 400 MLS/HR Nicardipine/ Sodium Chloride 200 ml @ 50 mls/hr Q4H IV 10/18/24 08:30 10/18/24 11:01 50 MLS/HR Iron Sucrose 110 ml @ 110 mls/hr DAILY@1200 IV 10/18/24 12:00 10/22/24 12:59 10/18/24 14:28 110 MLS/HR Examination: GENERAL:Normal, HEENT:Normal, NECK:Normal, LUNGS:Normal, LUNGS:Abnormal (ON OXYGEN), CVS:Normal, ABDOMEN:Normal, MSK:Normal, SKIN:Normal, NEURO:Normal, NEURO:Abnormal (altered, ?left weakness), :Normal laboratory and microbiology Laboratory Tests 10/18/24 02:45 Test 10/18/24 02:45 Range/Units Serum Glucose 108 H 74-106 mg/dL Problem List/Assessment/Plan Problem List/Assessment/Plan * Hypertensive emergency: on nicardipine drip * Bqmyh-dl-lmelebh diastolic heart failure: dialysis * Seizure disorder: neuro eval, on keppra * Severe pulmonary hypertension. * Severe tricuspid regurgitation. * COPD with exacerbation. * End-stage renal disease, on hemodialysis. * Chronic anemia. * Moderate protein malnutrition. * Acute respiratory failure: on oxygen * ?pneumonia - gram positive/neg: iv antibiotics Plan discussed with: Patient, Other (sisters) My Orders My Orders Orders - BRANDIE SPENCE MD Procedure Category Date Status Time Npo (Nothing By DIET 10/18/24 Transmitted Mouth) Diet Dinner * Neurology Consult CONS 10/18/24 Transmitted 14:29 Complete Blood Count LAB 10/19/24 Verified 06:00 Comprehensive LAB 10/19/24 Verified Metabolic Panel 06:00 Critical Care Time (mins): 42 (critical caer time excluding procedures is 42 mins) Date of Service: Oct 18, 2024 Billing Provider: BRANDIE SPENCE MD Common Visit Codes: [id number] CARE 30-74 MIN BRANDIE SPENCE MD Oct 18, 2024 14:36
--- NOTE | 2024-10-18 15:06 | DVH ---
PROCEDURE: MRI BRAIN HEAD WO CONTRAST INDICATION: stroke EXAM DATE: 10/18/2024 02:33 PM COMPARISON: MRI BRAIN HEAD WO CONTRAST on DOS: 09/19/24 TECHNIQUE: MRI of the brain without intravenous contrast. Limited stroke protocol. FINDINGS: Limited by motion. Diffusion weighted images of the brain demonstrate no evidence of acute infarction. There is no evidence of acute intracranial hemorrhage, extra-axial collection, mass effect, midline s hift, herniation or hydrocephalus. The ventricles, sulci and cisterns appear age appropriate. Moderate changes of chronic microvascular ischemic disease. The major vascular flow voids are present. Left mastoid effusion. The surrounding soft tissues and osseous structures are unremarkable. IMPRESSION: 1. No evidence of acute infarction, intracranial hemorrhage, mass effect or hydrocephalus. Moderate c hanges of chronic microvascular ischemic disease. HS:Y
[2024-10-18 18:19] LABS: Base Excess 3.1 mmol/L (-2.0-3.0)
--- NOTE | 2024-10-18 18:38 | DVHPN2 ---
Progress Note - Dictate Date Seen: Oct 18, 2024 Has the PT tested + for MRSA If YES, has PT been informed?: No Medical Necessity Reason Pt with a Central, PICC or Fol: No Subjective Came back to ER with dyspnea and uncontrolled HTN vital signs Vital Sign Date Time Temp Pulse Resp B/P (MAP) Pulse Ox O2 Delivery O2 Flow Rate FiO2 10/18/24 18:18 76 10/18/24 17:30 154/83 10/18/24 17:30 20 98 10/18/24 16:01 97.9 97.9 10/18/24 08:00 Nasal Cannula* 1 24 Total Intake and Output 10/17/24 10/17/24 10/18/24 15:00 23:00 07:00 Intake Total 50 ml Balance 50 ml medications Current Medications Medications Dose Ordered Sig/Maru Route Start Time Stop Time Status Last Admin Dose Admin Patient Own Medication 1 tab DAILY PO 10/18/24 10:00 UNV Sodium Chloride 10 ml Q8HR IV 10/18/24 14:00 10/18/24 14:21 10 ML Acetaminophen/ Hydrocodone Bitart 1 tab Q4HP PRN PO 10/18/24 07:30 Ondansetron HCl 4 mg Q4HP PRN IV 10/18/24 07:30 Docusate Sodium 100 mg BIDPRN PRN PO 10/18/24 07:30 Acetaminophen 650 mg Q6HP PRN PO 10/18/24 07:30 Nitroglycerin 0.4 mg Q5MINP PRN SL 10/18/24 07:30 Morphine Sulfate 2 mg Q30M PRN IV 10/18/24 07:30 Ceftriaxone Sodium 50 ml @ 100 mls/hr DAILY@09 IV 10/19/24 09:00 Azithromycin 250 ml @ 125 mls/hr DAILY IV 10/18/24 10:00 10/18/24 11:00 125 MLS/HR Ipratropium [place] 0.5 mg Q4HPRN PRN NEB 10/18/24 07:30 Albuterol 2.5 mg Q4HPRN PRN NEB 10/18/24 07:30 Levetiracetam 100 ml @ 400 mls/hr BID IV 10/18/24 10:00 10/18/24 11:00 400 MLS/HR Nicardipine/ Sodium Chloride 200 ml @ 50 mls/hr Q4H IV 10/18/24 08:30 10/18/24 17:30 50 MLS/HR Hydralazine HCl 10 mg Q6HP PRN IV 10/18/24 14:45 objective Alert and oriented x 2 Respiratory distress Lungs: rales at bases CV: RR. S4 gallop + Abdomen:L soft, NT Trace leg edema Neuro: WNL laboratory and microbiology Laboratory Tests 10/18/24 02:45 Test 10/18/24 02:45 Range/Units Serum Glucose 108 H 74-106 mg/dL Problem List 1. ESRD 2. CHF 3. Hypertensive emergency: on nicardipine drip 4. Seizure disorder:on keppra 5. Severe pulmonary hypertension 6. COPD with exacerbation with superimposed pneumonia 7. Anemia of CKD HD RUY UF goal 3 L Plan discussed with: Patient, Other (sisters) Plan discussed with: Patient JEROME MAN MD Oct 18, 2024 18:38
--- NOTE | 2024-10-18 20:08 | DVHINCON2 ---
Date of service: Oct 18, [address] Carreno Reason for Consultation ALOC History of Present Illness Ms. Wright is a 68 years old female with a history of hypertension, end-stage renal failure on hemodialysis, seizure disorder, goes she was brought to the [facility] on 10/18/2024 with a chief complaint of SOB, ALOC. At this time, she was awake, she does not not talk staff vocalize, but he was able to follow some verbal commands, she may only oriented to herself. The history is obtained from her sister I saw her on 09/13/2024 for encephalopathy According to her sister, her baseline is with normal mentation. On 10/17/2024, the family noticed the patient was was confused, and she was has jerky movement in the arms, shortness of breath, but she did not have seizure activity She has a very long history of seizure disorder, in that she has spells event with shaking all over body, and the patient was responsive to her during the seizure activity. Her sister does not remember how often she was seizures, but last seizure was before 06/2024 when she relocated from the [facility] to the [facility]. She is on Keppra 500 mg b.i.d. She was end-stage renal failure on hemodialysis, her last seizure was last Friday [phone] Phenytoin, 09/13/2024: 4.9 WBC/HB/PLT/MCV, 09/12/2024: 4/9.9/160/86.7, 10/18/2024: 7.4/9.2/304/93.6 BUN/CR, 09/12/2024: 28/6.37, 10/18/2024: 29/7.25 TBI/AST/ALT/AP, 09/12/2024: 0.6/67/30/143 Lactic acid, 10/18/24: 1 TSH, 09/13/2024: 2.01 EEG, 09/14/24: A moderately abnormal EEG Chest x-ray, 09/11/2024: 1. Moderately severe cardiomegaly 2. Moderate bilateral interstitial changes CT head, 09/12/2024: 1. No acute intracranial hemorrhage 2. No CT findings of territorial ischemia CT head, 10/18/2024: 1. Generalized brain atrophy. 2. Small vessel ischemic/degenerative changes. 3. No acute intracranial hemorrhage, midline shift or mass effect. If symptoms persist, further evaluation with MRI is recommended. MRI head, 09/19/2024: No acute infarct, intracranial hemorrhage, mass effect, or hydrocephalus MRI head, 10/18/2024: No evidence of acute infarction, intracranial hemorrhage, mass effect or hydrocephalus. Moderate changes of chronic microvascular ischemic disease. Past Medical History Hypertension, end-stage kidney failure on hemodialysis, shingles, seizures Past Surgical History Hemodialysis access Family History: Unknown Unknown family medical history Family History Diabetes, heart disease Social History She is not a tobacco smoker, no history of alcohol or recreational substance abuse Allergies: Coded Allergies: Diphenhydramine (Verified Allergy, Unknown, 09/16/24) Gabapentin (Verified Allergy, Unknown, 09/16/24) Home Meds Active Scripts Phenytoin Sodium (DILANTIN CAPSULE) 100 Mg Cp, 100 MG PO DAILY for 30 Days, #30 CAP 1 [facility] Ergocalciferol (VITAMIN D 69069 UNIT) 50,000 [place], [address] UNIT PO weekly for 12 Days, #12 CAP Prov[facility] 09/21/24 Levetiracetam (KEPPRA TABLET) 500 Mg Tb, 500 MG PO BID for 30 Days, #60 TAB 2 Refills Prov:JEREMÍASFRANCISCO BAR[facility] 09/21/24 Hydralazine HCl (Hydralazine HCl) 25 Mg Tab, 25 MG PO Q8HR for 30 Days, #90 TAB 2 Refills Prov[facility] 09/21/24 Nifedipine (Nifedipine Er) 60 Mg Tab, 1 TAB PO DAILY for 30 Days, #30 TAB 2 Refills Prov:JEREMÍASFRANCISCO [facility] 09/21/24 Reported Medications Metoprolol Tartrate (Metoprolol Tartrate) 100 Mg Tab, 100 MG PO DAILY 10/18/24 Discontinued Reported Medications Phenytoin Sodium (Dilantin) 100 Mg Cap 08/05/11 Discontinued Scripts Carvedilol (Carvedilol) 6.25 Mg Tab, 1 TAB PO BID for 60 Days, #120 TAB 1 Refill Prov[facility] 09/30/24 Hydralazine Hcl (Hydralazine Hcl) 50 Mg Tab, 1 TAB PO TID for 60 Days, #180 TAB 2 Refills Prov:CAROLEE WOODRUFF RESIDENT 09/30/24 Nifedipine (Nifedipine Er) 90 Mg Tab, 1 TAB PO DAILY for 60 Days, #60 TAB 2 Refills Prov:CAROLEE WOODRUFF RESIDENT 09/30/24 Current Medications Current Medications Medications (Trade) Dose Ordered Sig/Maru Route PRN Reason Start Time Stop Time Status Last Admin Hydralazine HCl (Apresoline Tablet) 25 mg Q8HR PO 10/18/24 14:00 10/18/24 14:34 DC Patient Own Medication 1 tab DAILY PO 10/18/24 10:00 UNV Nifedipine (Procardia Xl (Time-Release)) 60 mg DAILY PO 10/18/24 10:00 10/18/24 14:34 DC Sodium Chloride (Saline Lock Ns) 10 ml Q8HR IV 10/18/24 14:00 10/18/24 14:21 Acetaminophen/ Hydrocodone Bitart ([place] 5/325MG Tab) 1 tab Q4HP PRN PO MODERATE PAIN (4-6 PAIN SCALE) 10/18/24 07:30 Ondansetron HCl (Zofran) 4 mg Q4HP PRN IV NAUSEA / VOMITING 10/18/24 07:30 Docusate Sodium (Colace Capsule) 100 mg BIDPRN PRN PO FOR CONSTIPATION 10/18/24 07:30 Acetaminophen (Tylenol Tablet) 650 mg Q6HP PRN PO PAIN SCALE 1-3 OR TEMP>100.4 10/18/24 07:30 Nitroglycerin (Ntrostat Sublingual) 0.4 mg Q5MINP PRN SL FOR CHEST PAIN 10/18/24 07:30 Morphine Sulfate 2 mg Q30M PRN IV FOR CHEST PAIN 10/18/24 07:30 Levetiracetam (Keppra Tablet) 500 mg BID PO 10/18/24 10:00 10/18/24 08:40 DC Metoprolol Tartrate (Lopressor Tablet) 100 mg DAILY PO 10/19/24 10:00 10/18/24 14:34 DC Ceftriaxone Sodium 50 ml @ 100 mls/hr DAILY@09 IV 10/19/24 09:00 Azithromycin 250 ml @ 125 mls/hr DAILY IV 10/18/24 10:00 10/18/24 11:00 Ipratropium [place] (Atrovent Medneb) 0.5 mg Q4HPRN PRN NEB SHORTNESS OF BREATH 10/18/24 07:30 Albuterol (Ventolin Medneb) 2.5 mg Q4HPRN PRN NEB SHORTNESS OF BREATH 10/18/24 07:30 Levetiracetam 100 ml @ 400 mls/hr BID IV 10/18/24 10:00 10/18/24 11:00 Nicardipine/ Sodium Chloride 200 ml @ 50 mls/hr Q4H IV 10/18/24 08:30 10/18/24 17:30 Iron Sucrose 110 ml @ 110 mls/hr DAILY@1200 IV 10/18/24 12:00 10/18/24 14:34 DC 10/18/24 14:28 Hydralazine HCl (Apresoline Injection) 10 mg Q6HP PRN IV SBP>150 10/18/24 14:45 Review of Systems As above, the other systems are negative Vital Signs Vital Signs Date Time Temp Pulse Resp B/P (MAP) Pulse Ox O2 Delivery O2 Flow Rate FiO2 10/18/24 18:20 97 Nasal Cannula 2.0 10/18/24 18:20 28 10/18/24 18:18 76 10/18/24 17:30 154/83 10/18/24 17:30 20 10/18/24 16:01 97.9 97.9 Physical Exam GENERAL EXAM: General: the patient is well developed and nourished. No acute distress. HEENT: Normocephalic, neck is supple, no carotid bruits. No mass. RESPIRATORY: Normal respiratory effort with symmetrical lung expansion. Lungs clear to auscultation. CARDIOVASCULAR: Regular rate and rhythm with no murmurs. S1, S2. ABDOMEN: Soft, nontender, normal bowel sound NEUROLOGICAL: MENTAL STATUS: HPI SPEECH, LANGUAGE, HIGHER CORTICAL FUNCTION: Does not vocalize CRANIAL NERVES: #2: Intact visual moreno to confrontation #3,4,6: Pupils are equal, round and reactive. EOMs full and conjugate. No nystagmus. #5: Facial sensation intact in all three divisions bilaterally. Mandibular strength intact. #7: Facial muscles symmetrical and strength intact. #8: Hearing grossly normal to voice. #9,10: Uvula and soft palate rise in the midline. Swallow and voice are normal. #11: Trapezius and sternomastoid strength intact bilaterally. #12: Tongue midline. No fasciculations or atrophy. SENSATION: Sensation to touch and pinprick is ok. MOTOR: Normal tone in the upper and lower extremity. Normal muscle bulk. No fasciculations. No abnormal movements or posturing. She moves the arms, possibly weak on the left side. She was did not move the legs REFLEXES: Deep tendon reflexes are symmetrical. No pathological reflexes. CEREBELLAR/COORDINATION: Deferred GAIT/STATION: deferred. Labs/Diagnostic Data Labs Test 10/18/24 18:24 10/18/24 18:10 10/18/24 04:45 10/18/24 02:45 Range/Units POC Glucose 102 70-106 mg/dl Blood Gas Specimen Type Arterial Blood Gas Sample Site Right radial Blood Gas Patient Temperature 37.0 Arterial Blood Date Drawn [id number] Arterial Blood pH 7.464 H 7.350-7.450 Arterial Blood Partial Pressure CO2 38.4 32.0-45.0 mmHg Arterial Blood Partial Pressure O2 64.0 L 83.0-108.0 mmHg Arterial Blood HCO3 26.9 21.0-28.0 mmol/L Arterial Blood Oxygen Saturation 90.7 L 94.0-98.0 % Arterial Blood Base Excess 3.1 H -2.0-3.0 mmol/L Arterial Blood Oxyhemoglobin 88.9 L 94.0-98.0 % Arterial Blood Carboxyhemoglobin 1.4 0.5-1.5 % Arterial Blood Methemoglobin 0.6 0.0-1.5 % Hipolito Test Modified Blood Gas Total Hemoglobin 10.20 L 12.0-16.0 g/dL Blood Gas Modality Room air FiO2 % 21.0 Influenza Type A Antigen Negative Negative Influenza Type B Antigen Negative Negative SARS-CoV-2 Antigen (Rapid) Negative NEGATIVE White Blood Count 7.4 # 4.4-10.8 10^3/uL Red Blood Count 2.91 L 4.0-5.20 10^6/uL Hemoglobin 9.2 L 12.2-16.2 g/dL Hematocrit 27.2 L 36.0-46.0 % Mean Corpuscular Volume 93.6 80.0-100.0 fL Mean Corpuscular Hemoglobin 31.5 28.0-32.0 pg Mean Corpuscular Hemoglobin Concent 33.6 32.0-36.0 g/dL Red Cell Distribution Width 18.6 H 11.8-14.3 % Platelet Count 304 140-450 10^3/uL Mean Platelet Volume 8.4 6.9-10.8 fL Neutrophils (%) (Auto) 45.7 37.0-80.0 % Lymphocytes (%) (Auto) 35.2 10.0-50.0 % Monocytes (%) (Auto) 12.4 H 0.0-12.0 % Eosinophils (%) (Auto) 4.8 0.0-7.0 % Basophils (%) (Auto) 1.9 0.0-2.0 % Neutrophils # (Auto) 3.4 1.6-8.6 10 ^3/uL Lymphocytes # (Auto) 2.6 0.4-5.4 10 ^3/uL Monocytes # (Auto) 0.9 0-1.3 10 ^3/uL Eosinophils # (Auto) 0.4 0-0.8 10 ^3/uL Basophils # (Auto) 0.1 0-0.2 10 ^3/uL Nucleated Red Blood Cells 0.1 % Sodium Level 142 # 136-145 mmol/L Potassium Level 3.7 3.5-5.1 mmol/L Chloride Level 103 98-107 mmol/L Carbon Dioxide Level 28 20-31 mmol/L Anion Gap 11 5-15 Blood Urea Nitrogen 29 H 9-23 mg/dL Creatinine 7.25 H 0.550-1.02 mg/dL Glomerular Filtration Rate Calc 6 >90 mL/min BUN/Creatinine Ratio 4.0 L 10.0-20.0 Serum Glucose 108 H 74-106 mg/dL Lactic Acid Level 1.0 0.4-2.0 mmol/L Calcium Level 9.9 8.7-10.4 mg/dL Magnesium Level 2.2 1.6-2.6 mg/dL Troponin I High Sensitivity 13 </=34 ng/L B-Type Natriuretic Peptide 572.54 0-100 pg/mL Test 10/18/24 02:40 Range/Units Blood Gas Liter Flow 2.00 Assessment Altered mental status, visual hallucination Metabolic encephalopathy Rule out seizure History of seizure with atypical feature End-stage renal failure on hemodialysis Plan/Recommendation Monitoring Supportive treatment UDS Urinalysis if urine is collected EEG ICU care Keppra 500 mg IV b.i.d. Ativan for seizure breakthrough Nephrology Re: Kidney failure DVT prophylaxiuds More recommendation per clinical course Prognosis: Poor Condition: Critical This medical document was created using an electronic medical record system with [employer] dictation system. Although this document has been carefully reviewed, there may still be some phonetic and typographical errors. These areas are purely typographical due to imperfections of the software programs, and do not reflect any compromise in the patient's medical care Plan discussed with: Other KIT GRISSOM MD Oct 18, 2024 20:08
[2024-10-18] MEDS: hydrALAZINE HCL 20 MG/ML VL IV PRN (21:59)
[2024-10-19] VITALS (70 sets, daily range): BP systolic 73–177; BP diastolic 46–103; PULSE 65–113; RESP 10–38; TEMP 97.3–97.8; O2SAT 97–100
[2024-10-19 05:36] LABS: Basophils # (auto) 0.1 10 ^3/uL (0-0.2); Basophils % (auto) 3.3 % (0.0-2.0); Eosinophils # (auto) 0.4 10 ^3/uL (0-0.8); Eosinophils % (auto) 9.5 % (0.0-7.0); Hematocrit 26.2 % (36.0-46.0); Hemoglobin 8.7 g/dL (12.2-16.2); Lymphocytes # (auto) 0.7 10 ^3/uL (0.4-5.4); Lymphocytes % (auto) 14.5 % (10.0-50.0); Mean Corpuscular Hemoglobin 31.3 pg (28.0-32.0); Mean Corpuscular Hgb Conc. 33.1 g/dL (32.0-36.0); Mean Corpuscular Volume 94.6 fL (80.0-100.0); Monocytes # (auto) 0.5 10 ^3/uL (0-1.3); Monocytes % (auto) 10.9 % (0.0-12.0); Neutrophils # (auto) 2.8 10 ^3/uL (1.6-8.6); Neutrophils % (auto) 61.8 % (37.0-80.0); Nucleated Red Blood Cells % 0.4 %; Platelet Count (auto) 253 10^3/uL (140-450); Red Blood Cells 2.78 10^6/uL (4.0-5.20); Red Cell Distribution Width 18.4 % (11.8-14.3); White Blood Cell 4.5 10^3/uL (4.4-10.8)
[2024-10-19 05:53] LABS: Alanine Aminotransferase 22 U/L (7-40); Anion Gap 13 (5-15); BUN/Creatinine Ratio 4.2 (10.0-20.0); Calcium 9.6 mg/dL (8.7-10.4); Carbon Dioxide 26 mmol/L (20-31); Chloride 104 mmol/L (98-107); Potassium 4.3 mmol/L (3.5-5.1); Sodium 143 mmol/L (136-145); Total Protein 7.9 g/dL (5.7-8.2)
[2024-10-19 06:07] LABS: Albumin 3.2 g/dL (3.2-4.8); Alkaline Phosphatase 171 U/L (46-116); Bilirubin, Total 0.2 mg/dL (0.2-1.0); Blood Urea Nitrogen 35 mg/dL (9-23); Glucose 70 mg/dL (74-106)
[2024-10-19] MEDS: hydrALAZINE HCL 20 MG/ML VL IV PRN (06:32)
[2024-10-19 06:35] LABS: Aspartate Aminotransferase 43 U/L (13-40)
--- NOTE | 2024-10-19 08:29 | DVHPN2 ---
Progress Note - Dictate Date Seen: Oct 19, 2024 Has the PT tested + for MRSA If YES, has PT been informed?: No Medical Necessity Reason Pt with a Central, PICC or Fol: No Subjective Ms. Wright is a 68 years old female with a history of hypertension, end-stage renal failure on hemodialysis, seizure disorder, goes she was brought to the [facility] on 10/18/2024 with a chief complaint of SOB, ALOC. At this time, she was awake, she does not not talk staff vocalize, but he was able to follow some verbal commands, she may only oriented to herself. The history is obtained from her sister I saw her on 09/13/2024 for encephalopathy I have seen and examined the patient, I have talked to her nurse, the case was discussed with . Her eyes are closed, responsive to touch stimuli, but she does not talk for answer questions I have talked to her sisters, Nurys and Deborah. they reported: In her age of 20s, the patient was developed seizure disorder, in that she had events of generalized convulsion, nonresponsiveness, and the patient woke up 5 minutes after the convulsion was over, asking what had happened. Her last seizure was 20 years ago, but she keeps taking Keppra 500 mg b.i.d.. There was no associated incontinence, oral trauma [phone] Phenytoin, 09/13/2024: 4.9 WBC/HB/PLT/MCV, 09/12/2024: 4/9.9/160/86.7, 10/18/2024: 7.4/9.2/304/93.6 BUN/CR, 09/12/2024: 28/6.37, 10/18/2024: 29/7.25, 10/19/2024: 35/8.25 GFR, 10/19/2024: 5 TBI/AST/ALT/AP, 09/12/2024: 0.6/67/30/143 Lactic acid, 10/18/24: 1 TSH, 09/13/2024: 2.01 EEG, 09/14/24: A moderately abnormal EEG Chest x-ray, 09/11/2024: 1. Moderately severe cardiomegaly 2. Moderate bilateral interstitial changes CT head, 09/12/2024: 1. No acute intracranial hemorrhage 2. No CT findings of territorial ischemia CT head, 10/18/2024: 1. Generalized brain atrophy. 2. Small vessel ischemic/degenerative changes. 3. No acute intracranial hemorrhage, midline shift or mass effect. If symptoms persist, further evaluation with MRI is recommended. MRI head, 09/19/2024: No acute infarct, intracranial hemorrhage, mass effect, or hydrocephalus MRI head, 10/18/2024: No evidence of acute infarction, intracranial hemorrhage, mass effect or hydrocephalus. Moderate changes of chronic microvascular ischemic disease. vital signs Vital Sign Date Time Temp Pulse Resp B/P (MAP) Pulse Ox O2 Delivery O2 Flow Rate FiO2 10/19/24 06:32 167/80 10/19/24 05:30 88 30 100 10/19/24 04:00 97.5 97.5 10/18/24 20:00 Nasal Cannula* 2 28 Total Intake and Output 10/18/24 10/18/24 10/19/24 15:00 23:00 07:00 Intake Total 560 ml 425 ml 52.5 ml Output Total 0 ml 0 ml Balance 560 ml 425 ml 52.5 ml medications Current Medications Medications Dose Ordered Sig/Maru Route Start Time Stop Time Status Last Admin Dose Admin Patient Own Medication 1 tab DAILY PO 10/18/24 10:00 UNV Sodium Chloride 10 ml Q8HR IV 10/18/24 14:00 10/19/24 06:00 10 ML Acetaminophen/ Hydrocodone Bitart 1 tab Q4HP PRN PO 10/18/24 07:30 Ondansetron HCl 4 mg Q4HP PRN IV 10/18/24 07:30 Docusate Sodium 100 mg BIDPRN PRN PO 10/18/24 07:30 Acetaminophen 650 mg Q6HP PRN PO 10/18/24 07:30 Nitroglycerin 0.4 mg Q5MINP PRN SL 10/18/24 07:30 Morphine Sulfate 2 mg Q30M PRN IV 10/18/24 07:30 Ceftriaxone Sodium 50 ml @ 100 mls/hr DAILY@09 IV 10/19/24 09:00 Azithromycin 250 ml @ 125 mls/hr DAILY IV 10/18/24 10:00 10/18/24 11:00 125 MLS/HR Ipratropium [place] 0.5 mg Q4HPRN PRN NEB 10/18/24 07:30 Albuterol 2.5 mg Q4HPRN PRN NEB 10/18/24 07:30 Levetiracetam 100 ml @ 400 mls/hr BID IV 10/18/24 10:00 10/18/24 21:58 400 MLS/HR Nicardipine/ Sodium Chloride 200 ml @ 50 mls/hr Q4H IV 10/18/24 08:30 10/18/24 20:37 50 MLS/HR Lorazepam 1 mg Q5MINP PRN IV 10/18/24 21:00 Hydralazine HCl 10 mg Q4HP PRN IV 10/19/24 04:45 10/19/24 06:32 10 MG objective General: the patient is well developed and nourished. No acute distress. MENTAL STATUS: HPI SPEECH, LANGUAGE, HIGHER CORTICAL FUNCTION: Does not vocalize Facial sensation intact in all three divisions bilaterally. Mandibular strength intact. Facial muscles symmetrical and strength intact. SENSATION: Sensation to touch and pinprick is ok. MOTOR: Normal tone in the upper and lower extremity. Normal muscle bulk. No fasciculations. No abnormal movements or posturing. She moves the arms a little bit. She does not move the legs REFLEXES: Deep tendon reflexes are symmetrical. No pathological reflexes. CEREBELLAR/COORDINATION: Deferred GAIT/STATION: deferred. laboratory and microbiology Laboratory Tests 10/19/24 05:06 Test 10/19/24 05:06 Range/Units Serum Glucose 70 L 74-106 mg/dL Problem List Altered mental status, visual hallucination Metabolic encephalopathy ? Seizure activity History of grand mal seizure disorder End-stage renal failure on hemodialysis Assessment/Plan Monitoring Supportive treatment UDS Urinalysis if urine is collected EEG ICU care Keppra 500 mg IV b.i.d. (ESRF) Ativan for seizure breakthrough Nephrology Re: Kidney failure DVT prophylaxiuds More recommendation per clinical course This medical document was created using an electronic medical record system with [employer] dictation system. Although this document has been carefully reviewed, there may still be some phonetic and typographical errors. These areas are purely typographical due to imperfections of the software programs, and do not reflect any compromise in the patient's medical care Prognosis poor Plan discussed with: Other Critical Care Time(min): 40 KIT GRISSOM MD Oct 19, 2024 08:29
[2024-10-19] MEDS: cefTRIAXone 1GM/50ML D5W 50 ML IV SCH (09:04)
[2024-10-19] MEDS ORDERED: METOPROLOL TARTRATE 50 MG TAB PO SCH (10:00)
[2024-10-19] MEDS: LORazepam 2MG/ML-1ML VIAL IV PRN (11:26)
--- NOTE | 2024-10-19 11:54 | DVHPN2 ---
Progress Note - Dictate Date Seen: Oct 19, 2024 Has the PT tested + for MRSA If YES, has PT been informed?: No Medical Necessity Reason Pt with a Central, PICC or Fol: No Subjective Came back to ER with dyspnea and uncontrolled HTN vital signs Vital Sign Date Time Temp Pulse Resp B/P (MAP) Pulse Ox O2 Delivery O2 Flow Rate FiO2 10/19/24 11:00 65 12 127/64 (85) 100 10/19/24 10:00 Nasal Cannula* 2 28 10/19/24 08:00 97.3 97.3 Total Intake and Output 10/18/24 10/18/24 10/19/24 15:00 23:00 07:00 Intake Total 560 ml 425 ml 52.5 ml Output Total 0 ml 0 ml Balance 560 ml 425 ml 52.5 ml medications Current Medications Medications Dose Ordered Sig/Maru Route Start Time Stop Time Status Last Admin Dose Admin Patient Own Medication 1 tab DAILY PO 10/18/24 10:00 UNV Sodium Chloride 10 ml Q8HR IV 10/18/24 14:00 10/19/24 06:00 10 ML Acetaminophen/ Hydrocodone Bitart 1 tab Q4HP PRN PO 10/18/24 07:30 Ondansetron HCl 4 mg Q4HP PRN IV 10/18/24 07:30 Docusate Sodium 100 mg BIDPRN PRN PO 10/18/24 07:30 Acetaminophen 650 mg Q6HP PRN PO 10/18/24 07:30 Nitroglycerin 0.4 mg Q5MINP PRN SL 10/18/24 07:30 Morphine Sulfate 2 mg Q30M PRN IV 10/18/24 07:30 Ceftriaxone Sodium 50 ml @ 100 mls/hr DAILY@09 IV 10/19/24 09:00 10/19/24 09:04 100 MLS/HR Azithromycin 250 ml @ 125 mls/hr DAILY IV 10/18/24 10:00 10/19/24 10:54 125 MLS/HR Ipratropium [place] 0.5 mg Q4HPRN PRN NEB 10/18/24 07:30 Albuterol 2.5 mg Q4HPRN PRN NEB 10/18/24 07:30 Levetiracetam 100 ml @ 400 mls/hr BID IV 10/18/24 10:00 10/19/24 10:18 400 MLS/HR Nicardipine/ Sodium Chloride 200 ml @ 50 mls/hr Q4H IV 10/18/24 08:30 10/18/24 20:37 50 MLS/HR Lorazepam 1 mg Q5MINP PRN IV 10/18/24 21:00 Hydralazine HCl 10 mg Q4HP PRN IV 10/19/24 04:45 10/19/24 06:32 10 MG objective Alert and oriented x 2 Respiratory distress Lungs: rales at bases CV: RR. S4 gallop + Abdomen:L soft, NT Trace leg edema Neuro: WNL laboratory and microbiology Laboratory Tests 10/19/24 05:06 Test 10/19/24 05:06 Range/Units Serum Glucose 70 L 74-106 mg/dL Problem List 1. ESRD 2. CHF 3. Hypertensive emergency 4. Seizure disorder:on keppra 5. Severe pulmonary hypertension 6. COPD with exacerbation with superimposed pneumonia 7. Anemia of CKD 8. Pulmonary hypertension HD today UF goal 3-3.5 L cardiology consult, needs ,more effective management of pulmonary HTN IV antibiotics Plan discussed with: Patient, Other (sisters) Plan discussed with: Patient JEROME MAN MD Oct 19, 2024 11:54
[2024-10-19] MEDS: SODIUM CHL 0.9% 1000 ML BAG XX ONE (12:20)
--- NOTE | 2024-10-19 14:24 | DVHPN2 ---
Progress Note Date Seen: Oct 19, 2024 Has the PT tested + for MRSA If YES, has PT been informed?: No Medical Necessity Reason Pt with a Central, PICC or Fol: No Subjective Patient reports: No new complaints Review of Systems: HEENT:Normal, CVS:Normal, RESPIRATORY:Normal, GI:Normal, :Normal, MSK:Normal, NEURO:Normal Objective vital signs Vital Sign Date Time Temp Pulse Resp B/P (MAP) Pulse Ox O2 Delivery O2 Flow Rate FiO2 10/19/24 13:00 92 22 131/57 (81) 98 10/19/24 12:00 97.5 97.5 10/19/24 10:00 Nasal Cannula* 2 28 Total Intake and Output 10/18/24 10/18/24 10/19/24 15:00 23:00 07:00 Intake Total 560 ml 425 ml 52.5 ml Output Total 0 ml 0 ml Balance 560 ml 425 ml 52.5 ml medications Current Medications Medications Dose Ordered Sig/Maru Route Start Time Stop Time Status Last Admin Dose Admin Patient Own Medication 1 tab DAILY PO 10/18/24 10:00 UNV Sodium Chloride 10 ml Q8HR IV 10/18/24 14:00 10/19/24 06:00 10 ML Acetaminophen/ Hydrocodone Bitart 1 tab Q4HP PRN PO 10/18/24 07:30 Ondansetron HCl 4 mg Q4HP PRN IV 10/18/24 07:30 Docusate Sodium 100 mg BIDPRN PRN PO 10/18/24 07:30 Acetaminophen 650 mg Q6HP PRN PO 10/18/24 07:30 Nitroglycerin 0.4 mg Q5MINP PRN SL 10/18/24 07:30 Morphine Sulfate 2 mg Q30M PRN IV 10/18/24 07:30 Ceftriaxone Sodium 50 ml @ 100 mls/hr DAILY@09 IV 10/19/24 09:00 10/19/24 09:04 100 MLS/HR Azithromycin 250 ml @ 125 mls/hr DAILY IV 10/18/24 10:00 10/19/24 10:54 125 MLS/HR Ipratropium [place] 0.5 mg Q4HPRN PRN NEB 10/18/24 07:30 Albuterol 2.5 mg Q4HPRN PRN NEB 10/18/24 07:30 Levetiracetam 100 ml @ 400 mls/hr BID IV 10/18/24 10:00 10/19/24 10:18 400 MLS/HR Nicardipine/ Sodium Chloride 200 ml @ 50 mls/hr Q4H IV 10/18/24 08:30 10/18/24 20:37 50 MLS/HR Lorazepam 1 mg Q5MINP PRN IV 10/18/24 21:00 10/19/24 11:31 1 MG Hydralazine HCl 10 mg Q4HP PRN IV 10/19/24 04:45 10/19/24 06:32 10 MG Examination: GENERAL:Normal, HEENT:Normal, NECK:Normal, LUNGS:Normal, CVS:Normal, ABDOMEN:Normal, MSK:Normal, SKIN:Normal, NEURO:Normal, NEURO:Abnormal (encephalopathy), :Normal laboratory and microbiology Laboratory Tests 10/19/24 05:06 Test 10/19/24 05:06 Range/Units Serum Glucose 70 L 74-106 mg/dL Microbiology Date/Time Source Procedure Growth Status 10/18/24 02:45 Blood Blood Culture - Preliminary NO GROWTH AFTER 24 HOURS OF INCUBATION. Resulted Problem List/Assessment/Plan Problem List/Assessment/Plan * Hypertensive emergency: off nicardipine drip * [id number] diastolic heart failure: dialysis * Seizure disorder: neuro eval, on keppra * Severe pulmonary hypertension. * Severe tricuspid regurgitation. * COPD with exacerbation. * End-stage renal disease, on hemodialysis. * Chronic anemia. * Moderate protein malnutrition: clinimix * Acute respiratory failure: on oxygen * ?pneumonia - gram positive/neg: iv antibiotics * encephalopathy ? metabolic ?post ictal advance care planning- full code- time spent 19 mins Plan discussed with: Patient My Orders My Orders Orders - BRANDIE SPENCE MD Procedure Category Date Status Time Npo (Nothing By DIET 10/18/24 Transmitted Mouth) Diet Dinner * Neurology Consult CONS 10/18/24 Transmitted 14:29 Abg W/ Co-Ox RT 10/18/24 Logged 18:57 Admit ADMIT 10/18/24 Transmitted 19:02 Date of Service: Oct 19, 2024 Billing Provider: BRANDIE SPENCE MD Common Visit Codes: [id number] INP/OBS CARE(HIGH) Secondary Visit Codes: [id number] CARE PLAN 30 MINUTES BRANDIE SPENCE MD Oct 19, 2024 14:24
[2024-10-20] VITALS (75 sets, daily range): BP systolic 34–245; BP diastolic 20–139; PULSE 65–111; RESP 12–27; TEMP 96.1–99.5; O2SAT 94–100
[2024-10-20] MEDS: ENALAPRILAT 1.25 MG/ML-1ML VIAL IV ONE ×3 (01:27→01:48)
--- NOTE | 2024-10-20 06:54 | DVH ---
EXAM: XR Chest, 1 View CLINICAL INDICATION: chf TECHNIQUE: Frontal view of the chest. COMPARISON: XY CHEST XRAY 1 VIEW on DOS: 10/18/24, XY CHEST PORTABLE on DOS: 10/13/24, XY CHEST PORTABL E on DOS: 10/09/24, XY CHEST PORTABLE on DOS: 09/24/24, XY CHEST PORTABLE on DOS: 09/24/24 FINDINGS: LUNGS AND PLEURAL SPACES: See below. HEART: Cardiomegaly with pulmonary congestion and edema. Superimposed pneumonia cannot be excluded. MEDIASTINUM: Unremarkable. Normal mediastinal contour. BONES/JOINTS: Unremarkable. No acute fracture. OTHER FINDINGS: . IMPRESSION: Cardiomegaly with pulmonary congestion and edema. Superimposed pneumonia cannot be excluded.
[2024-10-20 09:37] LABS: Anion Gap 11 (5-15); Carbon Dioxide 29 mmol/L (20-31); Chloride 102 mmol/L (98-107); Potassium 4.4 mmol/L (3.5-5.1); Sodium 142 mmol/L (136-145)
[2024-10-20 09:38] LABS: Calcium 10.6 mg/dL (8.7-10.4)
[2024-10-20 09:43] LABS: BUN/Creatinine Ratio 3.6 (10.0-20.0); Blood Urea Nitrogen 19 mg/dL (9-23)
[2024-10-20 09:45] LABS: Glucose 64 mg/dL (74-106)
[2024-10-20 09:46] LABS: Basophils # (auto) 0.1 10 ^3/uL (0-0.2); Basophils % (auto) 1.3 % (0.0-2.0); Eosinophils # (auto) 0.3 10 ^3/uL (0-0.8); Eosinophils % (auto) 3.9 % (0.0-7.0); Hematocrit 31.8 % (36.0-46.0); Hemoglobin 10.7 g/dL (12.2-16.2); Lymphocytes # (auto) 0.9 10 ^3/uL (0.4-5.4); Lymphocytes % (auto) 12.4 % (10.0-50.0); Mean Corpuscular Hemoglobin 31.6 pg (28.0-32.0); Mean Corpuscular Hgb Conc. 33.6 g/dL (32.0-36.0); Monocytes # (auto) 0.9 10 ^3/uL (0-1.3); Monocytes % (auto) 12.9 % (0.0-12.0); Neutrophils # (auto) 4.8 10 ^3/uL (1.6-8.6); Neutrophils % (auto) 69.5 % (37.0-80.0); Nucleated Red Blood Cells % 0.6 %; Platelet Count (auto) 222 10^3/uL (140-450); Red Blood Cells 3.39 10^6/uL (4.0-5.20); Red Cell Distribution Width 18.2 % (11.8-14.3); White Blood Cell 6.9 10^3/uL (4.4-10.8)
[2024-10-20] MEDS: LACTULOSE 20Gm/30ML SOLN NG ONE (10:15)
--- NOTE | 2024-10-20 10:21 | DVHPN2 ---
Progress Note Date Seen: Oct 20, 2024 Has the PT tested + for MRSA If YES, has PT been informed?: No Medical Necessity Reason Pt with a Central, PICC or Fol: No Subjective Patient reports: No new complaints Review of Systems: HEENT:Normal, CVS:Normal, RESPIRATORY:Normal, GI:Normal, :Normal, MSK:Normal, NEURO:Normal Objective vital signs Vital Sign Date Time Temp Pulse Resp B/P (MAP) Pulse Ox O2 Delivery O2 Flow Rate FiO2 10/20/24 08:00 79 10/20/24 07:05 100 Nasal Cannula* 2 28 10/20/24 06:48 171/82 10/20/24 06:30 12 10/20/24 04:00 98.2 98.2 Total Intake and Output 10/19/24 10/19/24 10/20/24 14:59 22:59 06:59 Intake Total 400 ml 100 ml 0 ml Output Total 0 ml 0 ml Balance 400 ml 100 ml 0 ml medications Current Medications Medications Dose Ordered Sig/Maru Route Start Time Stop Time Status Last Admin Dose Admin Patient Own Medication 1 tab DAILY PO 10/18/24 10:00 UNV Sodium Chloride 10 ml Q8HR IV 10/18/24 14:00 10/20/24 06:01 10 ML Acetaminophen/ Hydrocodone Bitart 1 tab Q4HP PRN PO 10/18/24 07:30 Ondansetron HCl 4 mg Q4HP PRN IV 10/18/24 07:30 Docusate Sodium 100 mg BIDPRN PRN PO 10/18/24 07:30 Acetaminophen 650 mg Q6HP PRN PO 10/18/24 07:30 Nitroglycerin 0.4 mg Q5MINP PRN SL 10/18/24 07:30 Morphine Sulfate 2 mg Q30M PRN IV 10/18/24 07:30 Ceftriaxone Sodium 50 ml @ 100 mls/hr DAILY@09 IV 10/19/24 09:00 10/19/24 09:04 100 MLS/HR Azithromycin 250 ml @ 125 mls/hr DAILY IV 10/18/24 10:00 10/19/24 10:54 125 MLS/HR Ipratropium [place] 0.5 mg Q4HPRN PRN NEB 10/18/24 07:30 Albuterol 2.5 mg Q4HPRN PRN NEB 10/18/24 07:30 Levetiracetam 100 ml @ 400 mls/hr BID IV 10/18/24 10:00 10/19/24 21:55 400 MLS/HR Lorazepam 1 mg Q5MINP PRN IV 10/18/24 21:00 10/19/24 11:31 1 MG Hydralazine HCl 10 mg Q4HP PRN IV 10/19/24 04:45 10/20/24 06:48 10 MG Labetalol HCl 10 mg Q2HPRN PRN IV 10/20/24 09:00 Lactulose 30 ml BID NG 10/20/24 22:00 UNV Enteral Nutritional Formula 1,000 ml 30ML/HR GT 10/20/24 10:15 UNV Hydralazine HCl 25 mg Q8HR PO 10/20/24 14:00 UNV Metoprolol Tartrate 50 mg BID PO 10/20/24 22:00 UNV Examination: GENERAL:Normal, HEENT:Normal, NECK:Normal, LUNGS:Normal, CVS:Normal, ABDOMEN:Normal, MSK:Normal, SKIN:Normal, NEURO:Normal, NEURO:Abnormal (confused), :Normal laboratory and microbiology Laboratory Tests 10/20/24 09:10 Test 10/20/24 09:10 Range/Units Serum Glucose 64 L 74-106 mg/dL Microbiology Date/Time Source Procedure Growth Status 10/18/24 02:45 Blood Blood Culture - Preliminary NO GROWTH AFTER 48 HOURS OF INCUBATION. Resulted Problem List/Assessment/Plan Problem List/Assessment/Plan * Hypertensive emergency: off nicardipine drip, adjust meds * [id number] diastolic heart failure: dialysis * Seizure disorder: neuro eval, on keppra, dilantin * Severe pulmonary hypertension. * Severe tricuspid regurgitation. * COPD with exacerbation. * End-stage renal disease, on hemodialysis. * Chronic anemia. * Moderate protein malnutrition: tube feedings * Acute respiratory failure: on oxygen * ?pneumonia - gram positive/neg: iv antibiotics * encephalopathy ? metabolic ?post ictal long dw sisters-explained plan of care advance care planning- full code- time spent 19 mins Plan discussed with: Patient, Other (sisters) My Orders My Orders Orders - BRANDIE SPENCE MD Procedure Category Date Status Time Chest Portable XY 10/20/24 Resulted 06:00 Transfer Orders XFER 10/19/24 Transmitted 16:39 Labetalol Hcl PHA 10/20/24 In Process (Labetalol Hcl) 09:00 Place Ng ORDERS 10/20/24 Transmitted 09:24 Lactulose Oral PHA 10/20/24 Logged 10:15 Lactulose Oral PHA 10/20/24 Logged 22:00 Nutritional PHA 10/20/24 Logged Supplements (Nepro 10:15 Place Ng ORDERS 10/20/24 Transmitted 10:15 Hydralazine Hcl PHA 10/20/24 Logged Tablet (Apresoline 10:15 Hydralazine Hcl PHA 10/20/24 Logged Tablet (Apresoline 14:00 Metoprolol Tartrate PHA 10/20/24 Logged Tablet (Lopressor Ta 22:00 Basic Metabolic Panel LAB 10/21/24 Verified 06:00 Ammonia LAB 10/21/24 Verified 06:00 Phenytoin Iv Dilantin PHA 10/20/24 Verified 10:30 Phenytoin Iv Dilantin PHA 10/20/24 Verified 14:00 Date of Service: Oct 20, 2024 Billing Provider: BRANDIE SPENCE MD Common Visit Codes: [id number] INP/OBS CARE(HIGH) Secondary Visit Codes: [id number] CARE PLAN 30 MINUTES BRANDIE SPENCE MD Oct 20, 2024 10:21
--- NOTE | 2024-10-20 10:41 | DVHPN2 ---
Progress Note - Dictate Date Seen: Oct 20, 2024 Has the PT tested + for MRSA If YES, has PT been informed?: No Medical Necessity Reason Pt with a Central, PICC or Fol: No Subjective Ms. Wright is a 68 years old female with a history of hypertension, end-stage renal failure on hemodialysis, seizure disorder, goes she was brought to the [facility] on 10/18/2024 with a chief complaint of SOB, ALOC. At this time, she was awake, she does not not talk staff vocalize, but he was able to follow some verbal commands, she may only oriented to herself. The history is obtained from her sister I saw her on 09/13/2024 for encephalopathy I have seen and examined the patient, I have talked to her nurse. Her two sisters are in the room, and the confirmed the history I obtained on 10/19/2024, She is awake, she was not cooperative, eyes tightly closed with strong resistance, but later she open her eyes but did not follow verbal commands. She had social smells when her sisters telling her that they were going to a casino together I have talked to EEG lab Phenytoin, 09/13/2024: 4.9 WBC/HB/PLT/MCV, 09/12/2024: 4/9.9/160/86.7, 10/18/2024: 7.4/9.2/304/93.6 BUN/CR, 09/12/2024: 28/6.37, 10/18/2024: 29/7.25, 10/19/2024: 35/8.25 GFR, 10/19/2024: 5 TBI/AST/ALT/AP, 09/12/2024: 0.6/67/30/143 Lactic acid, 10/18/24: 1 TSH, 09/13/2024: 2.01 EEG, 09/14/24: A moderately abnormal EEG Chest x-ray, 09/11/2024: 1. Moderately severe cardiomegaly 2. Moderate bilateral interstitial changes CT head, 09/12/2024: 1. No acute intracranial hemorrhage 2. No CT findings of territorial ischemia CT head, 10/18/2024: 1. Generalized brain atrophy. 2. Small vessel ischemic/degenerative changes. 3. No acute intracranial hemorrhage, midline shift or mass effect. If symptoms persist, further evaluation with MRI is recommended. MRI head, 09/19/2024: No acute infarct, intracranial hemorrhage, mass effect, or hydrocephalus MRI head, 10/18/2024: No evidence of acute infarction, intracranial hemorrhage, mass effect or hydrocephalus. Moderate changes of chronic microvascular ischemic disease. vital signs Vital Sign Date Time Temp Pulse Resp B/P (MAP) Pulse Ox O2 Delivery O2 Flow Rate FiO2 10/20/24 08:00 79 10/20/24 07:05 100 Nasal Cannula* 2 28 10/20/24 06:48 171/82 10/20/24 06:30 12 10/20/24 04:00 98.2 98.2 Total Intake and Output 10/19/24 10/19/24 10/20/24 15:00 23:00 07:00 Intake Total 400 ml 100 ml 0 ml Output Total 0 ml 0 ml Balance 400 ml 100 ml 0 ml medications Current Medications Medications Dose Ordered Sig/Maru Route Start Time Stop Time Status Last Admin Dose Admin Patient Own Medication 1 tab DAILY PO 10/18/24 10:00 UNV Sodium Chloride 10 ml Q8HR IV 10/18/24 14:00 10/20/24 06:01 10 ML Acetaminophen/ Hydrocodone Bitart 1 tab Q4HP PRN PO 10/18/24 07:30 Ondansetron HCl 4 mg Q4HP PRN IV 10/18/24 07:30 Docusate Sodium 100 mg BIDPRN PRN PO 10/18/24 07:30 Acetaminophen 650 mg Q6HP PRN PO 10/18/24 07:30 Nitroglycerin 0.4 mg Q5MINP PRN SL 10/18/24 07:30 Morphine Sulfate 2 mg Q30M PRN IV 10/18/24 07:30 Ceftriaxone Sodium 50 ml @ 100 mls/hr DAILY@09 IV 10/19/24 09:00 10/19/24 09:04 100 MLS/HR Azithromycin 250 ml @ 125 mls/hr DAILY IV 10/18/24 10:00 10/19/24 10:54 125 MLS/HR Ipratropium [place] 0.5 mg Q4HPRN PRN NEB 10/18/24 07:30 Albuterol 2.5 mg Q4HPRN PRN NEB 10/18/24 07:30 Levetiracetam 100 ml @ 400 mls/hr BID IV 10/18/24 10:00 10/19/24 21:55 400 MLS/HR Lorazepam 1 mg Q5MINP PRN IV 10/18/24 21:00 10/19/24 11:31 1 MG Hydralazine HCl 10 mg Q4HP PRN IV 10/19/24 04:45 10/20/24 06:48 10 MG Labetalol HCl 10 mg Q2HPRN PRN IV 10/20/24 09:00 Lactulose 30 ml BID NG 10/20/24 22:00 Enteral Nutritional Formula 1,000 ml 30ML/HR GT 10/20/24 10:15 Hydralazine HCl 25 mg Q8HR PO 10/20/24 14:00 Metoprolol Tartrate 50 mg BID PO 10/20/24 22:00 Phenytoin Sodium 100 mg Q8HR IV 10/20/24 14:00 objective General: the patient is well developed and nourished. No acute distress. MENTAL STATUS: HPI SPEECH, LANGUAGE, HIGHER CORTICAL FUNCTION: Does not vocalize CRANIAL NERVES: Pupils are equal, round and reactive. EOMs full and conjugate. Facial sensation intact in all three divisions bilaterally. Mandibular strength intact. Facial muscles symmetrical and strength intact. SENSATION: Sensation to touch and pinprick is ok. MOTOR: Normal tone in the upper and lower extremity. Normal muscle bulk. No fasciculations. No abnormal movements or posturing. She moves the arms a little bit. She does not move the legs REFLEXES: Deep tendon reflexes are symmetrical. No pathological reflexes. CEREBELLAR/COORDINATION: Deferred GAIT/STATION: deferred. laboratory and microbiology Laboratory Tests 10/20/24 09:10 Test 10/20/24 09:10 Range/Units Serum Glucose 64 L 74-106 mg/dL Problem List Altered mental status, visual hallucination Metabolic encephalopathy ? Seizure activity on 10/19/24 History of grand mal seizure disorder End-stage renal failure on hemodialysis Assessment/Plan Monitoring Supportive treatment UDS Urinalysis if urine is collected EEG ICU care Keppra 500 mg IV b.i.d. (ESRF) Ativan for seizure breakthrough Nephrology Re: Kidney failure DVT prophylaxiuds More recommendation per clinical course This medical document was created using an electronic medical record system with [employer] dictation system. Although this document has been carefully reviewed, there may still be some phonetic and typographical errors. These areas are purely typographical due to imperfections of the software programs, and do not reflect any compromise in the patient's medical care Prognosis poor Plan discussed with: Other Critical Care Time(min): 35 KIT GRISSOM MD Oct 20, 2024 10:41
--- NOTE | 2024-10-20 11:16 | DVH ---
EXAM: XY CHEST XRAY 1 VIEW HISTORY: NG INSERTION COMPARISON: XY CHEST PORTABLE on DOS: 10/20/24, XY CHEST XRAY 1 VIEW on DOS: 10/18/24, XY CHEST PORTABLE on DOS: 10/13/24, XY CHEST PORTABLE on DOS: 10/09/24, XY CHEST PORTABLE on DOS: 09/24/24 TECHNIQUE: Portable AP view of the chest was performed. FINDINGS: NG tube is identified with its tip about 10 cm distal to the GE junction. There are diffuse bilateral interstitial opacities. No pneumothorax or consolidative infiltrates. There is likely a small right pleural effusion with blunting of the costophrenic angle. The heart is enlarged. Right brachial art charley stent is re-identified. IMPRESSION: 1. NG tube tip is in the stomach about 10 cm distal to the GE junction. 2. Cardiomegaly and diffuse interstitial prominence consistent with CHF. There is also likely a small right pleural effusion.
[2024-10-20] MEDS: hydrALAZINE HCL 25 MG TAB PO ONE (11:27)
[2024-10-20] MEDS: DEXTROSE 50% SYRINGE 50 ML IV ONE (11:54)
[2024-10-20] MEDS: DEXTROSE (50%) 50ML SYRG IV ONE (11:55)
[2024-10-20] MEDS: ETOMIDATE (2MG/ML) 20ML VIAL IV ONE ×2 (12:09→12:15)
[2024-10-20] MEDS: ROCURONIUM 10MG/ML 10ML VIAL IV ONE ×2 (12:09→12:15)
[2024-10-20] MEDS: NOREPINEPHRINE 8 MG/250ML KIT 250 ML IV SCH (12:15)
[2024-10-20] MEDS ORDERED: NOREPINEPHRINE 8 MG/250ML KIT 250 ML IV SCH ×2 (12:15)
--- NOTE | 2024-10-20 12:38 | CODING ---
Date of Service: Oct 20, 2024 Billing Provider: BRANDIE SPENCE MD Common Visit Codes: [id number] CARE 30-74 MIN BRANDIE SPENCE MD Oct 20, 2024 12:38
--- NOTE | 2024-10-20 12:39 | DVHNC2 ---
Intubation Indication: Respiratory Insufficiency, Altered Mental Status Pretreated with: Sedation Medicated with: Other (ROCURONIUM) Intubation Approach: Orotracheal Intubation size: cm (7.5) Informed consent obtained: No Risks/benefits/alt described: No Date of Service: Oct 20, 2024 Billing Provider: BRANDIE SPENCE MD Common Visit Codes: PROCEDURE ONLY Procedure Codes: [id number] BRANDIE SPENCE MD Oct 20, 2024 12:39
--- NOTE | 2024-10-20 12:40 | DVHNC2 ---
Central Line Recorder of insertion practice: Powder Coater Occupation of elastic tape inserter: Attending Physician Indication: Inability to obtain IV Maximal sterile barrier precau: Mask/Eye shield Skin Preparation: Chlorhexidine gluconate Insertion site: Right, Femoral Central line catheter type: [id number] dialysis Number of lumens: 3 Central line exchanged over a: No Antiseptic ointment applied to: Yes Informed consent obtained: No Risks/benefits/alt described: No Date of Service: Oct 20, 2024 Billing Provider: BRANDIE SPENCE MD Common Visit Codes: PROCEDURE ONLY Procedure Codes: [id number] NON-TUNNEL CV CATH BRANDIE SPENCE MD Oct 20, 2024 12:40
[2024-10-20] MEDS: MIDAZOLAM DRIP 50 mg/50mL 50 ML IV SCH (12:45)
[2024-10-20] MEDS: LABETALOL HCL 20 MG/4 ML VL IV PRN (12:49)
--- NOTE | 2024-10-20 12:50 | DVH ---
CHEST RADIOGRAPH Indication: INTUBATION/ CENTRAL LINE Technique: Single frontal view of the chest was obtained COMPARISON: 10/20/2024 FINDINGS: Endotracheal tube tip projects 3.2 cm above the ashu. Nasogastric tube projects towards stomach. The cardiac silhouette is enlarged. The lungs demonstrate bilateral patchy airspace opacities. The pu lmonary vasculature is prominent. Small bilateral pleural effusions. There is no pneumothorax. IMPRESSION: 1. As above
[2024-10-20] MEDS: PROPOFOL 100 ML IV SCH (12:59)
[2024-10-20 13:45] LABS: Base Excess 7.2 mmol/L (-2.0-3.0)
[2024-10-20] MEDS: hydrALAZINE HCL 25 MG TAB PO SCH (14:00)
[2024-10-20] MEDS: PHENYTOIN SODIUM 50 MG/ML 2ML VIAL IV ONE (14:34)
[2024-10-20] MEDS: PANTOPRAZOLE 40 MG/10 ML VIAL INJ IV ONE (14:43)
[2024-10-20] MEDS: PHENYTOIN SODIUM 50 MG/ML 2ML VIAL IV SCH (14:45)
[2024-10-20] MEDS: fentaNYL Drip 2500mCg/250mlNS 250 ML IV SCH (14:47)
[2024-10-20] MEDS: PIPERACILLIN-TAZOB 3.375GM 100 ML IV ONE (15:01)
[2024-10-20] MEDS: cloNIDine 0.2 mg/24hr 7DAY PATCH TD ONE (15:01)
--- NOTE | 2024-10-20 15:43 | DVHPN2 ---
Progress Note - Dictate Date Seen: Oct 20, 2024 Has the PT tested + for MRSA If YES, has PT been informed?: No Medical Necessity Reason Pt with a Central, PICC or Fol: No Subjective Continues to have dyspnea vital signs Vital Sign Date Time Temp Pulse Resp B/P (MAP) Pulse Ox O2 Delivery O2 Flow Rate FiO2 10/20/24 15:15 96.3 71 18 108/70 (83) 100 96.3 10/20/24 14:00 30 10/20/24 10:00 Nasal Cannula* 2 Total Intake and Output 10/19/24 10/19/24 10/20/24 15:00 23:00 07:00 Intake Total 400 ml 100 ml 0 ml Output Total 0 ml 0 ml Balance 400 ml 100 ml 0 ml medications Current Medications Medications Dose Ordered Sig/Maru Route Start Time Stop Time Status Last Admin Dose Admin Patient Own Medication 1 tab DAILY PO 10/18/24 10:00 UNV Sodium Chloride 10 ml Q8HR IV 10/18/24 14:00 10/20/24 14:00 10 ML Docusate Sodium 100 mg BIDPRN PRN PO 10/18/24 07:30 Acetaminophen 650 mg Q6HP PRN PO 10/18/24 07:30 Nitroglycerin 0.4 mg Q5MINP PRN SL 10/18/24 07:30 Morphine Sulfate 2 mg Q30M PRN IV 10/18/24 07:30 Ipratropium [place] 0.5 mg Q4HPRN PRN NEB 10/18/24 07:30 Albuterol 2.5 mg Q4HPRN PRN NEB 10/18/24 07:30 Levetiracetam 100 ml @ 400 mls/hr BID IV 10/18/24 10:00 10/20/24 10:21 400 MLS/HR Lorazepam 1 mg Q5MINP PRN IV 10/18/24 21:00 10/19/24 11:31 1 MG Hydralazine HCl 10 mg Q4HP PRN IV 10/19/24 04:45 10/20/24 06:48 10 MG Labetalol HCl 10 mg Q2HPRN PRN IV 10/20/24 09:00 10/20/24 12:49 10 MG Enteral Nutritional Formula 1,000 ml 30ML/HR GT 10/20/24 10:15 Hydralazine HCl 25 mg Q8HR PO 10/20/24 14:00 Metoprolol Tartrate 50 mg BID PO 10/20/24 22:00 Future Hold Phenytoin Sodium 100 mg Q8HR IV 10/20/24 14:00 10/20/24 14:45 100 MG Norepinephrine Bitartrate 250 ml @ 3.75 mls/hr Q24H IV 10/20/24 12:15 Norepinephrine Bitartrate 250 ml @ 3.75 mls/hr Q24H IV 10/20/24 12:15 UNV Norepinephrine Bitartrate 250 ml @ 3.75 mls/hr Q24H IV 10/20/24 12:15 UNV Piperacillin Sod/ Tazobactam Sod 50 ml @ 12.5 mls/hr Q8HR IV 10/20/24 22:00 Pantoprazole Sodium 40 mg DAILY IV 10/21/24 10:00 Propofol 100 ml @ 1.77 mls/hr Q24H IV 10/20/24 12:45 10/20/24 12:59 1.77 MLS/HR Midazolam HCl 50 ml @ 1 mls/hr Q24H IV 10/20/24 12:45 Fentanyl Citrate 250 ml @ 2.5 mls/hr Q24H IV 10/20/24 12:45 10/20/24 14:47 2.5 MLS/HR objective Alert and oriented x 2 Respiratory distress Lungs: rales at bases CV: RR. S4 gallop + Abdomen:L soft, NT Trace leg edema Neuro: WNL laboratory and microbiology Laboratory Tests 10/20/24 09:10 Test 10/20/24 09:10 Range/Units Serum Glucose 64 L 74-106 mg/dL Problem List 1. ESRD 2. CHF 3. Hypertension 4. Seizure disorder 5. Severe pulmonary hypertension 6. COPD with exacerbation with superimposed pneumonia 7. Anemia of CKD HDagain tomorrow UF goal 3-3.5 L cardiology consult, needs ,more effective management of pulmonary HTN IV antibiotics Plan discussed with: Other JEROME MAN MD Oct 20, 2024 15:43
[2024-10-20] MEDS ORDERED: LACTULOSE 20Gm/30ML SOLN NG SCH (22:00)
[2024-10-20] MEDS ORDERED: METOPROLOL TARTRATE 50 MG TAB PO SCH (22:00)
[2024-10-20] MEDS: InsuLIN REG 1unit/0.01ml Soln (100units/ml) SC SCH (22:00)
[2024-10-20] MEDS: PIPERACILLIN-TAZOB 2.25GM 50 ML IV SCH (22:03)
[2024-10-20] MEDS: ACCU-CHEK COMFORT CURVE STRIP VI SCH (22:05)
[2024-10-21] VITALS (113 sets, daily range): BP systolic 61–177; BP diastolic 30–97; PULSE 54–86; RESP 14–19; TEMP 97–100; O2SAT 100
--- NOTE | 2024-10-21 00:12 | DVHEEG2 ---
Neurology EEG Procedural Note Procedural Note EXAM DATE: 10/20/2024 REFERRING DOCTOR: Dr. Grissom TECHNIQUE: Eighteen channels of EEG, 2 channels of EOG, and 1 channel of EKG were recorded using the [employer] 10/20 system. CLINICAL DATA: The patient was referred for an EEG evaluation for the evidence of seizure disorder. MEDICATIONS: See chart BACKGROUND ACTIVITY: This record showed mostly high-amplitude delta activity with small amount of theta activity over both hemispheres, that was reactive to external stimuli ACTIVATION: Hyperventilation: Not done Photic Stimulation: Not done Sleep: Not seen IMPRESSION: This is a remarkably abnormal EEG, this EEG seen in severe cerebral dysfunction due to metabolic/hypoxic encephalopathy or medication effects, please correlate clinically The EKG channel showed a regular heart rate of 78 per [place] [address] KIT GRISSOM MD Oct 21, 2024 00:12
[2024-10-21] MEDS: Nepro With Carb Steady 1 Liter Bottle GT SCH (05:20)
[2024-10-21 05:32] LABS: Hematocrit 28.1 % (36.0-46.0); Hemoglobin 9.4 g/dL (12.2-16.2); Mean Corpuscular Hgb Conc. 33.6 g/dL (32.0-36.0); Mean Corpuscular Volume 92.3 fL (80.0-100.0); Platelet Count (auto) 209 10^3/uL (140-450); Red Blood Cells 3.04 10^6/uL (4.0-5.20); Red Cell Distribution Width 18.4 % (11.8-14.3); White Blood Cell 4.6 10^3/uL (4.4-10.8)
--- NOTE | 2024-10-21 05:35 | DVH ---
EXAM: XR Chest, 1 View CLINICAL INDICATION: RESP FAILURE TECHNIQUE: Frontal view of the chest. COMPARISON: XY CHEST XRAY 1 VIEW on DOS: 10/20/24, XY CHEST XRAY 1 VIEW on DOS: 10/20/24, XY CHEST PO RTABLE on DOS: 10/20/24, XY CHEST XRAY 1 VIEW on DOS: 10/18/24, XY CHEST PORTABLE on DOS: 10/13/24 FINDINGS: LUNGS AND PLEURAL SPACES: Right basilar atelectasis or pneumonia. Hyperlucent lungs. Flattening of the diaphragm. Right pleural effusion. No pneumothorax. HEART: Unremarkable. No cardiomegaly. MEDIASTINUM: Unremarkable. Normal mediastinal contour. BONES/JOINTS: Unremarkable. No acute fracture. TUBES, LINES AND DEVICES: The endotracheal tube (ETT) is in satisfactory position. Enteric tube ti p in the stomach. OTHER FINDINGS: . IMPRESSION: 1. Right basilar atelectasis or pneumonia. 2. Suggestion of COPD. 3. Right pleural effusion.
[2024-10-21 05:37] LABS: Band Neutrophils % (manual) 0; Basophils % (manual) 0 (0.0-2.0); Blast Cells 0; Metamyelocytes % 0; Myelocytes % 0; Promyelocytes % 0; Reactive Lymphocytes 0
[2024-10-21 05:38] LABS: Alanine Aminotransferase 27 U/L (7-40); Anion Gap 12 (5-15); BUN/Creatinine Ratio 4.4 (10.0-20.0); Calcium 9.3 mg/dL (8.7-10.4); Carbon Dioxide 27 mmol/L (20-31); Chloride 103 mmol/L (98-107); Potassium 3.6 mmol/L (3.5-5.1); Sodium 142 mmol/L (136-145); Total Protein 7.1 g/dL (5.7-8.2)
[2024-10-21 05:52] LABS: Albumin 2.9 g/dL (3.2-4.8); Alkaline Phosphatase 127 U/L (46-116); Aspartate Aminotransferase 73 U/L (13-40); Bilirubin, Total 0.3 mg/dL (0.2-1.0); Blood Urea Nitrogen 29 mg/dL (9-23); Glucose 69 mg/dL (74-106)
[2024-10-21 06:17] LABS: Eosinophils % (manual) 4 (0-7); Lymphocytes % (manual) 22 (10.0-50.0); Monocytes % (manual) 7 (0-12); Platelet Estimate Adequate
[2024-10-21 07:24] LABS: Base Excess 4.4 mmol/L (-2.0-3.0)
--- NOTE | 2024-10-21 10:15 | DVHPN2 ---
Progress Note - Dictate Date Seen: Oct 21, 2024 Has the PT tested + for MRSA If YES, has PT been informed?: No Medical Necessity Reason Pt with a Central, PICC or Fol: No Subjective Ms. Wright is a 68 years old female with a history of hypertension, end-stage renal failure on hemodialysis, seizure disorder, goes she was brought to the [facility] on 10/18/2024 with a chief complaint of SOB, ALOC. At this time, she was awake, she does not not talk staff vocalize, but he was able to follow some verbal commands, she may only oriented to herself. The history is obtained from her sister I saw her on 09/13/2024 for encephalopathy I have seen and examined the patient, I have talked to her nurse, her nurse are in the room with her, Her two sisters are in the room, unfortunately, the patient developed respiratory distress and was intubated on 10/21/2024 She is nonresponsive, sedated, but has all the brainstem reflexes Her two sisters suggest me to talk to her daughter at [phone] for more history about her seizure According to her daughter, her started about 30 years ago, but he was seizure free for 10 years till 5-6 years ago when the hemodialysis started. She has two types of seizures, in one of them, she has mild shaking all over body, nonresponsiveness, eyes rolling (not able to specify), there are no associated oral trauma or incontinence. This happens once monthly recently. In other type of attack, she becomes nonresponsive, spacing out briefly, drooling, this happens once or twice over six months. The patient was in different state but now in [place], he received her prescription from her family doctor. She is on Keppra only according to her sisters (she did not take Dilantin) (her daughter does not know her medications) Fentanyl 75 mcg/hour, propofol 50 mcg/min, levo 2 mcg/min [phone] Phenytoin, 09/13/2024: 4.9 WBC/HB/PLT/MCV, 09/12/2024: 4/9.9/160/86.7, 10/18/2024: 7.4/9.2/304/93.6 BUN/CR, 09/12/2024: 28/6.37, 10/18/2024: 29/7.25, 10/19/2024: 35/8.25 GFR, 10/19/2024: 5 TBI/AST/ALT/AP, 09/12/2024: 0.6/67/30/143 Lactic acid, 10/18/24: 1 TSH, 09/13/2024: 2.01 EEG, 09/14/24: A moderately abnormal EEG Chest x-ray, 09/11/2024: 1. Moderately severe cardiomegaly 2. Moderate bilateral interstitial changes CT head, 09/12/2024: 1. No acute intracranial hemorrhage 2. No CT findings of territorial ischemia CT head, 10/18/2024: 1. Generalized brain atrophy. 2. Small vessel ischemic/degenerative changes. 3. No acute intracranial hemorrhage, midline shift or mass effect. If symptoms persist, further evaluation with MRI is recommended. MRI head, 09/19/2024: No acute infarct, intracranial hemorrhage, mass effect, or hydrocephalus MRI head, 10/18/2024: No evidence of acute infarction, intracranial hemorrhage, mass effect or hydrocephalus. Moderate changes of chronic microvascular ischemic disease. vital signs Vital Sign Date Time Temp Pulse Resp B/P (MAP) Pulse Ox O2 Delivery O2 Flow Rate FiO2 10/21/24 08:45 98.6 63 19 133/77 (95) 100 209.5 10/21/24 08:00 30 10/21/24 08:00 Mechanical Ventilator+ 10/20/24 10:00 2 Total Intake and Output 10/20/24 10/20/24 10/21/24 15:00 23:00 07:00 Intake Total 420.20 ml 218.73 ml 171.23 ml Output Total 250 ml 0 ml Balance 420.20 ml -31.27 ml 171.23 ml medications Current Medications Medications Dose Ordered Sig/Maru Route Start Time Stop Time Status Last Admin Dose Admin Patient Own Medication 1 tab DAILY PO 10/18/24 10:00 UNV Sodium Chloride 10 ml Q8HR IV 10/18/24 14:00 10/21/24 05:49 10 ML Docusate Sodium 100 mg BIDPRN PRN PO 10/18/24 07:30 Acetaminophen 650 mg Q6HP PRN PO 10/18/24 07:30 Nitroglycerin 0.4 mg Q5MINP PRN SL 10/18/24 07:30 Morphine Sulfate 2 mg Q30M PRN IV 10/18/24 07:30 Ipratropium [place] 0.5 mg Q4HPRN PRN NEB 10/18/24 07:30 Albuterol 2.5 mg Q4HPRN PRN NEB 10/18/24 07:30 Levetiracetam 100 ml @ 400 mls/hr BID IV 10/18/24 10:00 10/20/24 22:03 400 MLS/HR Lorazepam 1 mg Q5MINP PRN IV 10/18/24 21:00 10/19/24 11:31 1 MG Hydralazine HCl 10 mg Q4HP PRN IV 10/19/24 04:45 10/20/24 06:48 10 MG Labetalol HCl 10 mg Q2HPRN PRN IV 10/20/24 09:00 10/20/24 12:49 10 MG Enteral Nutritional Formula 1,000 ml 30ML/HR GT 10/20/24 10:15 10/21/24 05:20 1,000 ML Hydralazine HCl 25 mg Q8HR PO 10/20/24 14:00 Metoprolol Tartrate 50 mg BID PO 10/20/24 22:00 Hold Phenytoin Sodium 100 mg Q8HR IV 10/20/24 14:00 10/21/24 05:59 100 MG Norepinephrine Bitartrate 250 ml @ 3.75 mls/hr Q24H IV 10/20/24 12:15 10/20/24 17:30 3.75 MLS/HR Norepinephrine Bitartrate 250 ml @ 3.75 mls/hr Q24H IV 10/20/24 12:15 UNV Norepinephrine Bitartrate 250 ml @ 3.75 mls/hr Q24H IV 10/20/24 12:15 UNV Piperacillin Sod/ Tazobactam Sod 50 ml @ 12.5 mls/hr Q8HR IV 10/20/24 22:00 10/21/24 06:01 12.5 MLS/HR Pantoprazole Sodium 40 mg DAILY IV 10/21/24 10:00 Propofol 100 ml @ 1.77 mls/hr Q24H IV 10/20/24 12:45 10/21/24 02:43 5.31 MLS/HR Midazolam HCl 50 ml @ 1 mls/hr Q24H IV 10/20/24 12:45 Fentanyl Citrate 250 ml @ 2.5 mls/hr Q24H IV 10/20/24 12:45 10/20/24 14:47 2.5 MLS/HR Diagnostic Test (Pha) 1 strip ACHS 10/20/24 22:00 10/21/24 06:32 1 STRIP Insulin Human Regular ACHS SC 10/20/24 22:00 Dextrose 50 ml UD PRN IV 10/20/24 21:45 objective The patient is well-nourished and well-developed with no distress. The patient is intubated MENTAL STATUS: Subjective CRANIAL NERVES: Pupils are equal, round and reactive.There are corneal reflexes and doll's eyes phenomenon. No signs of facial weakness. There are gagging or coughing reflexes SENSATION: No responses to pain stimuli. MOTOR: Normal tone in the upper and lower extremity. Normal muscle bulk. No fasciculations. No spontaneous movement. REFLEXES: Deep tendon reflexes are symmetrical. No pathological reflexes. CEREBELLAR/COORDINATION: Deferred GAIT/STATION: deferred. laboratory and microbiology Laboratory Tests 10/21/24 04:40 Test 10/21/24 04:40 Range/Units Serum Glucose 69 L 74-106 mg/dL Problem List Acute respiratory failure Altered mental status Metabolic encephalopathy Hypoxic encephalopathy ? Seizure activity on 10/19/24 Visual hallucination secondary to metabolic encephalopathy Seizure disorder, according to description she has Grand mal seizure Partial complex seizure End-stage renal failure on hemodialysis Assessment/Plan Monitoring Supportive treatment Dilantin levels EEG ICU care Dilantin 800 mg x 1 Dilantin 200 mg IV b.i.d. Keppra 500 mg IV b.i.d. (ESRF) Ativan for seizure breakthrough Nephrology Re: Kidney failure DVT prophylaxiuds More recommendation per clinical course The case was discussed with Dr. Carreno This medical document was created using an electronic medical record system with [employer] dictation system. Although this document has been carefully reviewed, there may still be some phonetic and typographical errors. These areas are purely typographical due to imperfections of the software programs, and do not reflect any compromise in the patient's medical care Prognosis guarded Plan discussed with: Other Critical Care Time(min): 45 KIT GRISSOM MD Oct 21, 2024 10:15
[2024-10-21] MEDS: PANTOPRAZOLE 40 MG/10 ML VIAL INJ IV SCH (10:21)
[2024-10-21] MEDS ORDERED: VANCOMYCIN PER PHARMACY 0 MG IV SCH (12:00)
--- NOTE | 2024-10-21 12:08 | DVHPN2 ---
Progress Note Date Seen: Oct 21, 2024 Has the PT tested + for MRSA If YES, has PT been informed?: No Medical Necessity Reason Pt with a Central, PICC or Fol: Yes The following are medically ne: Central Line, Ivey Catheter Reason for ivey catheter: Strict I&O Subjective Review of Systems: HEENT:Normal, CVS:Normal, RESPIRATORY:Normal, GI:Normal, :Normal, MSK:Normal, NEURO:Normal Objective vital signs Vital Sign Date Time Temp Pulse Resp B/P (MAP) Pulse Ox O2 Delivery O2 Flow Rate FiO2 10/21/24 11:45 99.7 65 18 117/66 (83) 100 211.5 10/21/24 10:40 30 10/21/24 10:00 Mechanical Ventilator+ 10/20/24 10:00 2 Total Intake and Output 10/20/24 10/20/24 10/21/24 15:00 23:00 07:00 Intake Total 420.20 ml 218.73 ml 171.23 ml Output Total 250 ml 0 ml Balance 420.20 ml -31.27 ml 171.23 ml medications Current Medications Medications Dose Ordered Sig/Maru Route Start Time Stop Time Status Last Admin Dose Admin Patient Own Medication 1 tab DAILY PO 10/18/24 10:00 UNV Sodium Chloride 10 ml Q8HR IV 10/18/24 14:00 10/21/24 05:49 10 ML Docusate Sodium 100 mg BIDPRN PRN PO 10/18/24 07:30 Acetaminophen 650 mg Q6HP PRN PO 10/18/24 07:30 Nitroglycerin 0.4 mg Q5MINP PRN SL 10/18/24 07:30 Morphine Sulfate 2 mg Q30M PRN IV 10/18/24 07:30 Ipratropium [place] 0.5 mg Q4HPRN PRN NEB 10/18/24 07:30 Albuterol 2.5 mg Q4HPRN PRN NEB 10/18/24 07:30 Levetiracetam 100 ml @ 400 mls/hr BID IV 10/18/24 10:00 10/21/24 10:22 400 MLS/HR Lorazepam 1 mg Q5MINP PRN IV 10/18/24 21:00 10/19/24 11:31 1 MG Hydralazine HCl 10 mg Q4HP PRN IV 10/19/24 04:45 10/20/24 06:48 10 MG Labetalol HCl 10 mg Q2HPRN PRN IV 10/20/24 09:00 10/20/24 12:49 10 MG Enteral Nutritional Formula 1,000 ml 30ML/HR GT 10/20/24 10:15 10/21/24 05:20 1,000 ML Hydralazine HCl 25 mg Q8HR PO 10/20/24 14:00 Metoprolol Tartrate 50 mg BID PO 10/20/24 22:00 Hold Phenytoin Sodium 100 mg Q8HR IV 10/20/24 14:00 10/21/24 05:59 100 MG Norepinephrine Bitartrate 250 ml @ 3.75 mls/hr Q24H IV 10/20/24 12:15 10/20/24 17:30 3.75 MLS/HR Norepinephrine Bitartrate 250 ml @ 3.75 mls/hr Q24H IV 10/20/24 12:15 UNV Norepinephrine Bitartrate 250 ml @ 3.75 mls/hr Q24H IV 10/20/24 12:15 UNV Piperacillin Sod/ Tazobactam Sod 50 ml @ 12.5 mls/hr Q8HR IV 10/20/24 22:00 10/21/24 06:01 12.5 MLS/HR Pantoprazole Sodium 40 mg DAILY IV 10/21/24 10:00 10/21/24 10:21 40 MG Propofol 100 ml @ 1.77 mls/hr Q24H IV 10/20/24 12:45 10/21/24 02:43 5.31 MLS/HR Midazolam HCl 50 ml @ 1 mls/hr Q24H IV 10/20/24 12:45 Fentanyl Citrate 250 ml @ 2.5 mls/hr Q24H IV 10/20/24 12:45 10/20/24 14:47 2.5 MLS/HR Diagnostic Test (Pha) 1 strip ACHS 10/20/24 22:00 10/21/24 10:49 1 STRIP Insulin Human Regular ACHS SC 10/20/24 22:00 Dextrose 50 ml UD PRN IV 10/20/24 21:45 Phenytoin Sodium 200 mg Q12HR IV 10/21/24 22:00 UNV Examination: GENERAL:Normal, HEENT:Normal, NECK:Normal, LUNGS:Normal, LUNGS:Abnormal (intubated), CVS:Normal, ABDOMEN:Normal, MSK:Normal, SKIN:Normal, NEURO:Normal, :Normal laboratory and microbiology Laboratory Tests 10/21/24 04:40 Test 10/21/24 04:40 Range/Units Serum Glucose 69 L 74-106 mg/dL Microbiology Date/Time Source Procedure Growth Status 10/18/24 02:45 Blood Blood Culture - Preliminary NO GROWTH AFTER 72 HOURS OF INCUBATION. Resulted Problem List/Assessment/Plan Problem List/Assessment/Plan * Hypertensive emergency: off nicardipine drip, adjust meds * [id number] diastolic heart failure: dialysis * Seizure disorder: neuro eval, on keppra, dilantin * Severe pulmonary hypertension. * Severe tricuspid regurgitation. * COPD with exacerbation. * End-stage renal disease, on hemodialysis. * Chronic anemia. * Moderate protein malnutrition: tube feedings * Acute respiratory failure: on oxygen * ?pneumonia with shock /septic: iv vanc, zosyn, cultures- gram positive/neg, on pressors * encephalopathy ? metabolic ?post ictal long dw sisters-explained plan of care advance care planning- full code- time spent 19 mins Plan discussed with: Other (sister Nurys) My Orders My Orders Orders - BRANDIE SPENCE MD Procedure Category Date Status Time Norepinephrine 8 PHA 10/20/24 In Process Mg/250ml Kit 12:15 Chest Xray 1 View XY 10/20/24 Resulted 12:12 Ventilator Setup RT 10/20/24 Logged 12:22 Abg W/ Co-Ox RT 10/20/24 Logged 13:20 Respiratory Culture BHARATH 10/20/24 In Process W/ Gs 12:22 Transfer Orders XFER 10/20/24 Transmitted 12:31 Piperacillin-Tazob PHA 10/20/24 In Process 2.25gm (Zosyn 2.25gm) 22:00 Pantoprazole PHA 10/21/24 In Process (Protonix) 10:00 Propofol (Diprivan) PHA 10/20/24 In Process 12:45 Midazolam Drip 50 PHA 10/20/24 In Process Mg/50ml (Versed Drip 5 12:45 Fentanyl Drip PHA 10/20/24 In Process 2500mcg/250mlns 12:45 Rass Sedation Scale MELLY 10/20/24 In Process 12:31 Chest Portable XY 10/21/24 Resulted 06:00 Abg W/ Co-Ox RT 10/21/24 Logged 06:00 Mrsa Screen BHARATH 10/20/24 In Process 15:00 Critical Care Time (mins): 61 (critical care time excluding procedures is 61 mins) Date of Service: Oct 21, 2024 Billing Provider: BRANDIE SPENCE MD Common Visit Codes: [id number] CARE 30-74 MIN BRANDIE SPENCE MD Oct 21, 2024 12:08
[2024-10-21] MEDS ORDERED: VANCOMYCIN 750MG KIT 100 ML IV ONE (12:30)
[2024-10-21] MEDS: VANCOMYCIN 750mg/150ml 150 ML IV ONE (14:27)
[2024-10-21] MEDS ORDERED: NOREPINEPHRINE 8 MG/250ML KIT 250 ML IV SCH (14:45)
[2024-10-21] MEDS: NOREPINEPHRINE 8 MG/250ML KIT 250 ML IV SCH (14:50)
--- NOTE | 2024-10-21 17:27 | DVHPN2 ---
Progress Note - Dictate Date Seen: Oct 21, 2024 Has the PT tested + for MRSA If YES, has PT been informed?: No Medical Necessity Reason Pt with a Central, PICC or Fol: Yes The following are medically ne: Central Line, Ivey Catheter Reason for ivey catheter: Strict I&O Subjective Lethargic vital signs Vital Sign Date Time Temp Pulse Resp B/P (MAP) Pulse Ox O2 Delivery O2 Flow Rate FiO2 10/21/24 17:08 102/70 10/21/24 16:40 64 18 100 30 10/21/24 16:00 Mechanical Ventilator+ 10/21/24 15:20 98.1 208.6 10/20/24 10:00 2 Total Intake and Output 10/20/24 10/20/24 10/21/24 15:00 23:00 07:00 Intake Total 420.20 ml 218.73 ml 171.23 ml Output Total 250 ml 0 ml Balance 420.20 ml -31.27 ml 171.23 ml medications Current Medications Medications Dose Ordered Sig/Maru Route Start Time Stop Time Status Last Admin Dose Admin Patient Own Medication 1 tab DAILY PO 10/18/24 10:00 UNV Sodium Chloride 10 ml Q8HR IV 10/18/24 14:00 10/21/24 14:11 10 ML Docusate Sodium 100 mg BIDPRN PRN PO 10/18/24 07:30 Acetaminophen 650 mg Q6HP PRN PO 10/18/24 07:30 Nitroglycerin 0.4 mg Q5MINP PRN SL 10/18/24 07:30 Morphine Sulfate 2 mg Q30M PRN IV 10/18/24 07:30 Ipratropium [place] 0.5 mg Q4HPRN PRN NEB 10/18/24 07:30 Albuterol 2.5 mg Q4HPRN PRN NEB 10/18/24 07:30 Levetiracetam 100 ml @ 400 mls/hr BID IV 10/18/24 10:00 10/21/24 10:22 400 MLS/HR Lorazepam 1 mg Q5MINP PRN IV 10/18/24 21:00 10/19/24 11:31 1 MG Hydralazine HCl 10 mg Q4HP PRN IV 10/19/24 04:45 10/20/24 06:48 10 MG Enteral Nutritional Formula 1,000 ml 30ML/HR GT 10/20/24 10:15 10/21/24 05:20 1,000 ML Metoprolol Tartrate 50 mg BID PO 10/20/24 22:00 Hold Norepinephrine Bitartrate 250 ml @ 3.75 mls/hr Q24H IV 10/20/24 12:15 UNV Norepinephrine Bitartrate 250 ml @ 3.75 mls/hr Q24H IV 10/20/24 12:15 UNV Piperacillin Sod/ Tazobactam Sod 50 ml @ 12.5 mls/hr Q8HR IV 10/20/24 22:00 10/21/24 14:27 12.5 MLS/HR Pantoprazole Sodium 40 mg DAILY IV 10/21/24 10:00 10/21/24 10:21 40 MG Propofol 100 ml @ 1.77 mls/hr Q24H IV 10/20/24 12:45 10/21/24 17:08 5.31 MLS/HR Midazolam HCl 50 ml @ 1 mls/hr Q24H IV 10/20/24 12:45 Fentanyl Citrate 250 ml @ 2.5 mls/hr Q24H IV 10/20/24 12:45 10/20/24 14:47 2.5 MLS/HR Diagnostic Test (Pha) 1 strip ACHS 10/20/24 22:00 10/21/24 16:54 1 STRIP Insulin Human Regular ACHS SC 10/20/24 22:00 Dextrose 50 ml UD PRN IV 10/20/24 21:45 Labetalol HCl 10 mg Q4HP PRN IV 10/21/24 12:00 Vancomycin HCl 0 ml @ 0 mls/hr UD IV 10/21/24 12:00 Phenytoin Sodium 200 mg/Sodium Chloride 54 ml @ 216 mls/hr Q12H IV 10/21/24 21:00 Norepinephrine Bitartrate 250 ml @ 0.938 mls/ hr Q24H IV 10/21/24 15:00 10/21/24 14:50 0.938 MLS/HR objective Alert and oriented x 2 Respiratory distress Lungs: rales at bases CV: RR. S4 gallop + Abdomen:L soft, NT Trace leg edema Neuro: WNL laboratory and microbiology Laboratory Tests 10/21/24 04:40 Test 10/21/24 04:40 Range/Units Serum Glucose 69 L 74-106 mg/dL Problem List 1. ESRD 2. CHF 3. Hypertension 4. Seizure disorder 5. Severe pulmonary hypertension 6. COPD with exacerbation with superimposed pneumonia 7. Anemia of CKD Had HD today UF goal 3-3.5 L IV antibiotics cardiology for management of pulmonary HTN Dietary Evaluation Review Comments: 1) Pro-stat 1 pk BID 2) Nephro-karl 1 tab daily 3) TF Nepro Carb Steady @ 25ml/hr along with current rate of propofol. TF @ goal volume along with Pro-stat & propofol provides 1381 kcal (100% energy needs) & 79gm protein (100% protein needs) Expected Outcomes/Goals: To meet >75% estimated needs Fu 2-3 days Plan discussed with: Other JEROME MAN MD Oct 21, 2024 17:27
--- NOTE | 2024-10-21 18:19 | DVHNC2 ---
Other Procedure Procedure ARTERIAL LINE PLACEMENT LEFT FEMORAL ARTERIAL LINE PLACED USING ULTRASOUND GUIDANCE BY SELDINGER TECHNIQUE. ARTERIAL WAVEFORM PRESENT Indication SHOCK Prep CHLORHEXIDINE Informed consent obtained: Yes Risks, benefits, and alternati: Yes Date of Service: Oct 21, 2024 Billing Provider: BRANDIE SPENCE MD Common Visit Codes: PROCEDURE ONLY Procedure Codes: [id number] LINE BRANDIE SPENCE MD Oct 21, 2024 18:19
[2024-10-21 18:25] LABS: Base Excess 1.1 mmol/L (-2.0-3.0)
[2024-10-21] MEDS: EPOETIN ALFA-EPBX 4,000 UNIT/ML VIAL SC ONE (21:46)
[2024-10-21] MEDS: PHENYTOIN IV DILANTIN 200 MG in SODIUM CHL 0.9% 50 ML IV SCH (21:50)
[2024-10-21] MEDS ORDERED: PHENYTOIN SODIUM 50 MG/ML 2ML VIAL IV SCH (22:00)
[2024-10-21] MEDS: SODIUM CHL 0.9% 1000 ML BAG XX ONE (22:01)
[2024-10-22] VITALS (108 sets, daily range): BP systolic 84–172; BP diastolic 34–143; PULSE 60–78; RESP 12–18; TEMP 98.2–100.2; O2SAT 90–100
[2024-10-22 05:32] LABS: Hemoglobin 10.1 g/dL (12.2-16.2); Mean Corpuscular Hemoglobin 31.4 pg (28.0-32.0); Mean Corpuscular Hgb Conc. 33.6 g/dL (32.0-36.0); Mean Corpuscular Volume 93.5 fL (80.0-100.0); Platelet Count (auto) 269 10^3/uL (140-450); Red Blood Cells 3.21 10^6/uL (4.0-5.20); Red Cell Distribution Width 18.9 % (11.8-14.3); White Blood Cell 5.5 10^3/uL (4.4-10.8)
[2024-10-22 05:34] LABS: Basophils % (manual) 0 (0.0-2.0); Blast Cells 0; Metamyelocytes % 0; Promyelocytes % 0; Reactive Lymphocytes 0
[2024-10-22 06:09] LABS: Band Neutrophils % (manual) 1; Eosinophils % (manual) 7 (0-7); Large Platelets FEW; Lymphocytes % (manual) 18 (10.0-50.0); Monocytes % (manual) 10 (0-12); Myelocytes % 1; Platelet Estimate Adequate
--- NOTE | 2024-10-22 06:37 | DVH ---
INDICATION: RESP FAILURE TECHNIQUE: Frontal view of the chest. COMPARISON: XY CHEST PORTABLE on DOS: 10/21/24, XY CHEST XRAY 1 VIEW on DOS: 10/20/24, XY CHEST XRAY 1 VIEW on DOS: 10/20/24, XY CHEST PORTABLE on DOS: 10/20/24, XY CHEST XRAY 1 VIEW on DOS: 10/18/24, XY CHES T PORTABLE on DOS: 10/21/24 FINDINGS: LUNGS AND PLEURAL SPACES: Right basilar atelectasis or pneumonia. Hyperlucent lungs. Flattening of the diaphragm. Right pleural effusion. No pneumothorax. HEART: Unremarkable. No cardiomegaly. MEDIASTINUM: Unremarkable. Normal mediastinal contour. BONES/JOINTS: Unremarkable. No acute fracture. TUBES, LINES AND DEVICES: Endotracheal tube 6 mm from the ashu Enteric tube tip in the stomach. IMPRESSION: Retraction of endotracheal tube by 1-2 cm is recommended. Otherwise no interval change.
[2024-10-22 06:44] LABS: Anion Gap 12 (5-15); Calcium 10.1 mg/dL (8.7-10.4); Carbon Dioxide 29 mmol/L (20-31); Chloride 100 mmol/L (98-107); Glucose 106 mg/dL (74-106); Potassium 3.3 mmol/L (3.5-5.1); Sodium 141 mmol/L (136-145)
[2024-10-22 07:01] LABS: BUN/Creatinine Ratio 3.1 (10.0-20.0); Blood Urea Nitrogen 13 mg/dL (9-23)
[2024-10-22 08:06] LABS: Base Excess 5.8 mmol/L (-2.0-3.0)
--- NOTE | 2024-10-22 08:50 | DVHPN2 ---
Progress Note - Dictate Date Seen: Oct 22, 2024 Has the PT tested + for MRSA If YES, has PT been informed?: No Medical Necessity Reason Pt with a Central, PICC or Fol: Yes The following are medically ne: Central Line, Ivey Catheter Reason for ivey catheter: Strict I&O Subjective Ms. Wright is a 68 years old female with a history of hypertension, end-stage renal failure on hemodialysis, seizure disorder, goes she was brought to the [facility] on 10/18/2024 with a chief complaint of SOB, ALOC. At this time, she was awake, she does not not talk staff vocalize, but he was able to follow some verbal commands, she may only oriented to herself. The history is obtained from her sister I saw her on 09/13/2024 for encephalopathy I have seen and examined the patient, I have talked to her nurse, she is intubated, sedated, respond to stroke painful stimuli, she has brainstem reflexes Fentanyl 75 mcg/hour, propofol 15 mcg/min, levo 0 mcg/min Phenytoin, 09/13/2024: 4.9, 10/22/24: 11.3 (albumin: 2.9) WBC/HB/PLT/MCV, 09/12/2024: 4/9.9/160/86.7, 10/18/2024: 7.4/9.2/304/93.6 BUN/CR, 09/12/2024: 28/6.37, 10/18/2024: 29/7.25, 10/19/2024: 35/8.25 GFR, 10/19/2024: 5 TBI/AST/ALT/AP, 09/12/2024: 0.6/67/30/143 Lactic acid, 10/18/24: 1 TSH, 09/13/2024: 2.01 EEG, 09/14/24: A moderately abnormal EEG Chest x-ray, 09/11/2024: 1. Moderately severe cardiomegaly 2. Moderate bilateral interstitial changes CT head, 09/12/2024: 1. No acute intracranial hemorrhage 2. No CT findings of territorial ischemia CT head, 10/18/2024: 1. Generalized brain atrophy. 2. Small vessel ischemic/degenerative changes. 3. No acute intracranial hemorrhage, midline shift or mass effect. If symptoms persist, further evaluation with MRI is recommended. MRI head, 09/19/2024: No acute infarct, intracranial hemorrhage, mass effect, or hydrocephalus MRI head, 10/18/2024: No evidence of acute infarction, intracranial hemorrhage, mass effect or hydrocephalus. Moderate changes of chronic microvascular ischemic disease. vital signs Vital Sign Date Time Temp Pulse Resp B/P (MAP) Pulse Ox O2 Delivery O2 Flow Rate FiO2 10/22/24 08:16 62 14 119/66 (83) 96 30 10/22/24 07:15 99.5 211.1 10/22/24 06:00 Mechanical Ventilator+ 10/20/24 10:00 2 Total Intake and Output 10/21/24 10/21/24 10/22/24 15:00 23:00 07:00 Intake Total 490.293 ml 524.607 ml 359.047 ml Output Total 0 ml Balance 490.293 ml 524.607 ml 359.047 ml medications Current Medications Medications Dose Ordered Sig/Maru Route Start Time Stop Time Status Last Admin Dose Admin Patient Own Medication 1 tab DAILY PO 10/18/24 10:00 UNV Sodium Chloride 10 ml Q8HR IV 10/18/24 14:00 10/22/24 05:48 10 ML Docusate Sodium 100 mg BIDPRN PRN PO 10/18/24 07:30 Acetaminophen 650 mg Q6HP PRN PO 10/18/24 07:30 Nitroglycerin 0.4 mg Q5MINP PRN SL 10/18/24 07:30 Morphine Sulfate 2 mg Q30M PRN IV 10/18/24 07:30 Ipratropium [place] 0.5 mg Q4HPRN PRN NEB 10/18/24 07:30 Albuterol 2.5 mg Q4HPRN PRN NEB 10/18/24 07:30 Levetiracetam 100 ml @ 400 mls/hr BID IV 10/18/24 10:00 10/21/24 21:46 400 MLS/HR Lorazepam 1 mg Q5MINP PRN IV 10/18/24 21:00 10/19/24 11:31 1 MG Hydralazine HCl 10 mg Q4HP PRN IV 10/19/24 04:45 10/20/24 06:48 10 MG Enteral Nutritional Formula 1,000 ml 30ML/HR GT 10/20/24 10:15 10/22/24 04:51 1,000 ML Metoprolol Tartrate 50 mg BID PO 10/20/24 22:00 Hold Norepinephrine Bitartrate 250 ml @ 3.75 mls/hr Q24H IV 10/20/24 12:15 UNV Norepinephrine Bitartrate 250 ml @ 3.75 mls/hr Q24H IV 10/20/24 12:15 UNV Piperacillin Sod/ Tazobactam Sod 50 ml @ 12.5 mls/hr Q8HR IV 10/20/24 22:00 10/22/24 05:49 12.5 MLS/HR Pantoprazole Sodium 40 mg DAILY IV 10/21/24 10:00 10/21/24 10:21 40 MG Propofol 100 ml @ 1.77 mls/hr Q24H IV 10/20/24 12:45 10/22/24 06:24 5.31 MLS/HR Midazolam HCl 50 ml @ 1 mls/hr Q24H IV 10/20/24 12:45 Fentanyl Citrate 250 ml @ 2.5 mls/hr Q24H IV 10/20/24 12:45 10/21/24 22:56 7.5 MLS/HR Diagnostic Test (Pha) 1 strip ACHS 10/20/24 22:00 10/22/24 06:22 1 STRIP Insulin Human Regular ACHS SC 10/20/24 22:00 Dextrose 50 ml UD PRN IV 10/20/24 21:45 Labetalol HCl 10 mg Q4HP PRN IV 10/21/24 12:00 Vancomycin HCl 0 ml @ 0 mls/hr UD IV 10/21/24 12:00 Phenytoin Sodium 200 mg/Sodium Chloride 54 ml @ 216 mls/hr Q12H IV 10/21/24 21:00 10/21/24 21:50 216 MLS/HR Norepinephrine Bitartrate 250 ml @ 0.938 mls/ hr Q24H IV 10/21/24 15:00 10/21/24 14:50 0.938 MLS/HR objective The patient is well-nourished and well-developed with no distress. The patient is intubated MENTAL STATUS: Subjective CRANIAL NERVES: Pupils are equal, round and reactive.There are corneal reflexes and doll's eyes phenomenon. No signs of facial weakness. There are gagging or coughing reflexes SENSATION: No responses to pain stimuli. MOTOR: Normal tone in the upper and lower extremity. Normal muscle bulk. No fasciculations. No spontaneous movement. REFLEXES: Deep tendon reflexes are symmetrical. No pathological reflexes. CEREBELLAR/COORDINATION: Deferred GAIT/STATION: deferred. laboratory and microbiology Laboratory Tests 10/22/24 06:05 10/22/24 04:50 Test 10/22/24 06:05 Range/Units Serum Glucose 106 74-106 mg/dL Problem List Acute respiratory failure Altered mental status Metabolic encephalopathy Hypoxic encephalopathy ? Seizure activity on 10/19/24 Visual hallucination secondary to metabolic encephalopathy Seizure disorder, according to description she has Grand mal seizure Partial complex seizure End-stage renal failure on hemodialysis Assessment/Plan Monitoring Supportive treatment Dilantin levels EEG ICU care Stabilize vitals Respiratory support/vent management Dilantin 100 mg IV Tid. Keppra 500 mg IV b.i.d. (ESRF) Ativan for seizure breakthrough Nephrology Re: Kidney failure DVT prophylaxiuds More recommendation per clinical course This medical document was created using an electronic medical record system with [employer] dictation system. Although this document has been carefully reviewed, there may still be some phonetic and typographical errors. These areas are purely typographical due to imperfections of the software programs, and do not reflect any compromise in the patient's medical care Prognosis Guarded Dietary Evaluation Review Comments: 1) Pro-stat 1 pk BID 2) Nephro-karl 1 tab daily 3) TF Nepro Carb Steady @ 25ml/hr along with current rate of propofol. TF @ goal volume along with Pro-stat & propofol provides 1381 kcal (100% energy needs) & 79gm protein (100% protein needs) Expected Outcomes/Goals: To meet >75% estimated needs Fu 2-3 days Plan discussed with: Other Critical Care Time(min): 35 KIT GRISSOM MD Oct 22, 2024 08:50
--- NOTE | 2024-10-22 10:28 | DVHPN2 ---
Progress Note - Dictate Date Seen: Oct 22, 2024 Has the PT tested + for MRSA If YES, has PT been informed?: No Medical Necessity Reason Pt with a Central, PICC or Fol: No The following are medically ne: Central Line, Ivey Catheter Reason for ivey catheter: Strict I&O Subjective Intubated vital signs Vital Sign Date Time Temp Pulse Resp B/P (MAP) Pulse Ox O2 Delivery O2 Flow Rate FiO2 10/22/24 08:16 62 14 119/66 (83) 96 30 10/22/24 07:15 99.5 211.1 10/22/24 06:00 Mechanical Ventilator+ 10/20/24 10:00 2 Total Intake and Output 10/21/24 10/21/24 10/22/24 15:00 23:00 07:00 Intake Total 490.293 ml 524.607 ml 359.047 ml Output Total 0 ml Balance 490.293 ml 524.607 ml 359.047 ml medications Current Medications Medications Dose Ordered Sig/Maru Route Start Time Stop Time Status Last Admin Dose Admin Patient Own Medication 1 tab DAILY PO 10/18/24 10:00 UNV Sodium Chloride 10 ml Q8HR IV 10/18/24 14:00 10/22/24 05:48 10 ML Docusate Sodium 100 mg BIDPRN PRN PO 10/18/24 07:30 Acetaminophen 650 mg Q6HP PRN PO 10/18/24 07:30 Nitroglycerin 0.4 mg Q5MINP PRN SL 10/18/24 07:30 Morphine Sulfate 2 mg Q30M PRN IV 10/18/24 07:30 Ipratropium [place] 0.5 mg Q4HPRN PRN NEB 10/18/24 07:30 Albuterol 2.5 mg Q4HPRN PRN NEB 10/18/24 07:30 Levetiracetam 100 ml @ 400 mls/hr BID IV 10/18/24 10:00 10/21/24 21:46 400 MLS/HR Lorazepam 1 mg Q5MINP PRN IV 10/18/24 21:00 10/19/24 11:31 1 MG Hydralazine HCl 10 mg Q4HP PRN IV 10/19/24 04:45 10/20/24 06:48 10 MG Enteral Nutritional Formula 1,000 ml 30ML/HR GT 10/20/24 10:15 10/22/24 04:51 1,000 ML Metoprolol Tartrate 50 mg BID PO 10/20/24 22:00 Hold Norepinephrine Bitartrate 250 ml @ 3.75 mls/hr Q24H IV 10/20/24 12:15 UNV Norepinephrine Bitartrate 250 ml @ 3.75 mls/hr Q24H IV 10/20/24 12:15 UNV Piperacillin Sod/ Tazobactam Sod 50 ml @ 12.5 mls/hr Q8HR IV 10/20/24 22:00 10/22/24 05:49 12.5 MLS/HR Pantoprazole Sodium 40 mg DAILY IV 10/21/24 10:00 10/21/24 10:21 40 MG Propofol 100 ml @ 1.77 mls/hr Q24H IV 10/20/24 12:45 10/22/24 06:24 5.31 MLS/HR Midazolam HCl 50 ml @ 1 mls/hr Q24H IV 10/20/24 12:45 Fentanyl Citrate 250 ml @ 2.5 mls/hr Q24H IV 10/20/24 12:45 10/21/24 22:56 7.5 MLS/HR Diagnostic Test (Pha) 1 strip ACHS 10/20/24 22:00 10/22/24 06:22 1 STRIP Insulin Human Regular ACHS SC 10/20/24 22:00 Dextrose 50 ml UD PRN IV 10/20/24 21:45 Labetalol HCl 10 mg Q4HP PRN IV 10/21/24 12:00 Vancomycin HCl 0 ml @ 0 mls/hr UD IV 10/21/24 12:00 Norepinephrine Bitartrate 250 ml @ 0.938 mls/ hr Q24H IV 10/21/24 15:00 10/21/24 14:50 0.938 MLS/HR Phenytoin Sodium 100 mg Q8HR IV 10/22/24 14:00 Potassium Chloride 100 ml @ 50 mls/hr Q2H IV 10/22/24 09:15 10/22/24 13:14 objective Sedated On mechanical ventilation Lungs: rales at bases CV: RR. S4 gallop + Abdomen:L soft, NT NO leg edema Neuro: WNL laboratory and microbiology Laboratory Tests 10/22/24 06:05 10/22/24 04:50 Test 10/22/24 06:05 Range/Units Serum Glucose 106 74-106 mg/dL Problem List 1. ESRD 2. CHF, currently hs ie euvolemic 3. Hypertension 4. Seizure disorder 5. Severe pulmonary hypertension 6. COPD with exacerbation with superimposed pneumonia 7. Anemia of CKD HD tomorrow UF goal 2 L, there is not much fluid to remove IV antibiotics for pneumonia cardiology for management of pulmonary HTN Dietary Evaluation Review Comments: 1) Pro-stat 1 pk BID 2) Nephro-karl 1 tab daily 3) TF Nepro Carb Steady @ 25ml/hr along with current rate of propofol. TF @ goal volume along with Pro-stat & propofol provides 1381 kcal (100% energy needs) & 79gm protein (100% protein needs) Expected Outcomes/Goals: To meet >75% estimated needs Fu 2-3 days Plan discussed with: Other JEROME MAN MD Oct 22, 2024 10:28
--- NOTE | 2024-10-22 10:30 | DVH ---
INDICATION: RECHECK ETT TECHNIQUE: Frontal view of the chest. COMPARISON: XY CHEST PORTABLE on DOS: 10/22/24, XY CHEST PORTABLE on DOS: 10/21/24, XY CHEST XRAY 1 VIE W on DOS: 10/20/24, XY CHEST XRAY 1 VIEW on DOS: 10/20/24, XY CHEST PORTABLE on DOS: 10/20/24 FINDINGS: Endotracheal tube 2 cm from [place]. Nasogastric tip in the stomach.. Cardiomegaly.. There is no evid ence of pleural disease. The bony structures of the chest are intact without fracture. IMPRESSION: 1. Cardiomegaly with CHF.
[2024-10-22] MEDS: POTASSIUM CHL 20MEQ/100ML 100 ML IV SCH (11:15)
[2024-10-22] MEDS: PHENYTOIN SODIUM 50 MG/ML 2ML VIAL IV SCH (15:33)
[2024-10-22] MEDS: VANCOMYCIN 500mg/100mL 100 ML IV ONE (17:59)
--- NOTE | 2024-10-22 19:36 | DVHPNRES ---
Progress Note Date Seen: Oct 22, 2024 Resident Creating Document: JUAN JOSÉ RAMOS RESIDENT Has the PT tested + for MRSA If YES, has PT been informed?: No Medical Necessity Reason Pt with a Central, PICC or Fol: No The following are medically ne: Central Line, Ivey Catheter Reason for ivey catheter: Strict I&O Medical Necessity Reason Patient is a 68-year-old female with significant medical history that includes ESRD on HD, seizures, hypertension, CHF, CVA, anemia, and COPD, presented to the ED on 10/18/2024 via EMS due to shortness of breath. In the ED, patient was AO only to self. Patient was intubated for airway protection. Patient is currently being managed for COPD exacerbation. She is currently intubated and sedated Subjective Review of Systems sedated. Unable to obtain Objective vital signs Vital Sign Date Time Temp Pulse Resp B/P (MAP) Pulse Ox O2 Delivery O2 Flow Rate FiO2 10/22/24 18:00 14 100 Mechanical Ventilator+ 30 30 10/22/24 16:29 67 126/74 (91) 10/22/24 14:45 98.8 209.8 10/20/24 10:00 2 Total Intake and Output 10/21/24 10/21/24 10/22/24 15:00 23:00 07:00 Intake Total 490.293 ml 524.607 ml 359.047 ml Output Total 0 ml Balance 490.293 ml 524.607 ml 359.047 ml medications Current Medications Medications Dose Ordered Sig/Maru Route Start Time Stop Time Status Last Admin Dose Admin Patient Own Medication 1 tab DAILY PO 10/18/24 10:00 UNV Sodium Chloride 10 ml Q8HR IV 10/18/24 14:00 10/22/24 15:32 10 ML Docusate Sodium 100 mg BIDPRN PRN PO 10/18/24 07:30 Acetaminophen 650 mg Q6HP PRN PO 10/18/24 07:30 Nitroglycerin 0.4 mg Q5MINP PRN SL 10/18/24 07:30 Morphine Sulfate 2 mg Q30M PRN IV 10/18/24 07:30 Ipratropium [place] 0.5 mg Q4HPRN PRN NEB 10/18/24 07:30 Albuterol 2.5 mg Q4HPRN PRN NEB 10/18/24 07:30 Levetiracetam 100 ml @ 400 mls/hr BID IV 10/18/24 10:00 10/22/24 11:34 400 MLS/HR Lorazepam 1 mg Q5MINP PRN IV 10/18/24 21:00 10/19/24 11:31 1 MG Hydralazine HCl 10 mg Q4HP PRN IV 10/19/24 04:45 10/20/24 06:48 10 MG Enteral Nutritional Formula 1,000 ml 30ML/HR GT 10/20/24 10:15 10/22/24 04:51 1,000 ML Metoprolol Tartrate 50 mg BID PO 10/20/24 22:00 Hold Norepinephrine Bitartrate 250 ml @ 3.75 mls/hr Q24H IV 10/20/24 12:15 UNV Norepinephrine Bitartrate 250 ml @ 3.75 mls/hr Q24H IV 10/20/24 12:15 UNV Piperacillin Sod/ Tazobactam Sod 50 ml @ 12.5 mls/hr Q8HR IV 10/20/24 22:00 10/22/24 15:32 12.5 MLS/HR Pantoprazole Sodium 40 mg DAILY IV 10/21/24 10:00 10/22/24 11:34 40 MG Propofol 100 ml @ 1.77 mls/hr Q24H IV 10/20/24 12:45 10/22/24 06:24 5.31 MLS/HR Midazolam HCl 50 ml @ 1 mls/hr Q24H IV 10/20/24 12:45 Fentanyl Citrate 250 ml @ 2.5 mls/hr Q24H IV 10/20/24 12:45 10/21/24 22:56 7.5 MLS/HR Diagnostic Test (Pha) 1 strip ACHS 10/20/24 22:00 10/22/24 17:00 1 STRIP Insulin Human Regular ACHS SC 10/20/24 22:00 Dextrose 50 ml UD PRN IV 10/20/24 21:45 Labetalol HCl 10 mg Q4HP PRN IV 10/21/24 12:00 Vancomycin HCl 0 ml @ 0 mls/hr UD IV 10/21/24 12:00 Norepinephrine Bitartrate 250 ml @ 0.938 mls/ hr Q24H IV 10/21/24 15:00 10/21/24 14:50 0.938 MLS/HR Phenytoin Sodium 100 mg Q8HR IV 10/22/24 14:00 10/22/24 15:33 100 MG Examination General Appearance: sedated HEENT: Atraumatic Respiratory: intubated Cardiovascular: Regular rate, Normal S1, Normal S2, No murmurs, no chest wall tenderness Abdominal: NO distention, no tenderness, bowel sounds present, no scars noted Extremities: No clubbing, No cyanosis, No edema, Normal pulses, No tenderness/swelling Skin: No rashes, No breakdown, No significant lesion Neuro: Unable to assess Psych/Mental Status: Unable to assess laboratory and microbiology Laboratory Tests 10/22/24 06:05 10/22/24 04:50 Test 10/22/24 06:05 Range/Units Serum Glucose 106 74-106 mg/dL Microbiology Date/Time Source Procedure Growth Status 10/21/24 18:37 Blood Blood Culture - Preliminary NO GROWTH AFTER 24 HOURS OF INCUBATION. Resulted 10/20/24 15:00 Nose MRSA Screen - Final Complete 10/20/24 12:42 Sputum Gram Stain - Final Complete 10/20/24 12:42 Respiratory Culture - Final Klebsiella pneumoniae Citrobacter species Complete Problem List/Assessment/Plan Problem List/Assessment/Plan Assessment and plan Neurology Seizure disorder Altered mental status; Maybe due to encephalopathy ? metabolic ?post ictal History of CVA - CT 10/18/2024 : Generalized brain atrophy. Small vessel ischemic/degenerative changes - MRI 10/18/2024: No evidence of acute infarction, intracranial hemorrhage, mass effect or hydrocephalus. Moderate changes of chronic microvascular ischemic disease. - raghav - neurology on board Cardiovascular [id number] diastolic heart failure Severe tricuspid regurgitation Hypertensive emergency Cardiomegaly with mild congestion. Hypertensive heart disease off nicardipine drip dialysis 10/19; 10/21 Respiratory COPD with exacerbation Severe pulmonary hypertension. Acute respiratory failure: on oxygen ?pneumonia with shock /septic: - xray: Multifocal airspace disease, not significantly changed since 10/13/202410/20:Cardiomegaly with pulmonary congestion and edema. Superimposed pneumonia cannot be excluded - cultures positive for KLEBSIELLA PNEUMONIA, CITROBACTER - ABG: PH: 7.577; Hco3: 28, Pc02: 36.6 - iv vanc, zosyn - Plan: Sedation holiday, Cpap trial 10/23/2024 Genitourinary End-stage renal disease, on hemodialysis - dialysis via fistula next dialysis 10/23/2024 ( previous days 10/19; 10/21) - Nephrology following Hematology Normocytic anemia Anemia due to chronic disease ( ESRD) Metabolic Moderate protein malnutrition, BMI : 18.0 - tube feedings (Diet: Nepro with Carbs) IV access Femoral line: 10/20/2024 A-line: 10/21/2024 Drip: Fentanyl,Norepi, Propofol Antibiotics: Zosyn and vancomycin GI prophylaxis: protonix dvt prophylaxis: SCD Plan: Sedation holiday, Cpap trial 10/23/2024 Advanced care discussed + Dr. Walker Critical care time 41 minutes Plan discussed with: Patient Dietary Evaluation Review Comments: 1) Pro-stat 1 pk BID 2) Nephro-karl 1 tab daily 3) TF Nepro Carb Steady @ 25ml/hr along with current rate of propofol. TF @ goal volume along with Pro-stat & propofol provides 1381 kcal (100% energy needs) & 79gm protein (100% protein needs) Expected Outcomes/Goals: To meet >75% estimated needs Fu 2-3 days Date of Service: Oct 22, 2024 Billing Provider: BEST WALKER MD Common Visit Codes: NOT BILLABLE JUAN JOSÉ RAMOS RESIDENT Oct 22, 2024 19:36 BEST WALKER MD Oct 23, 2024 12:59
--- NOTE | 2024-10-22 21:36 | DVHEEG2 ---
Neurology EEG Procedural Note Procedural Note EXAM DATE: 10/21/24 REFERRING DOCTOR: Dr. Grissom TECHNIQUE: Eighteen channels of EEG, 2 channels of EOG, and 1 channel of EKG were recorded using the International 10/20 system. CLINICAL DATA: The patient was referred for an EEG evaluation for the evidence of seizure disorder. MEDICATIONS: Seizure chart BACKGROUND ACTIVITY: The record showed diffuse rhythmic/semirhythmic waveform in alpha and theta range, diffusely over both hemispheres with interval of brief relatively suppressed background activity ACTIVATION: Hyperventilation: Not done Photic Stimulation: Not done Sleep: Unresponsiveness IMPRESSION: This is a remarkably abnormal EEG, this EEG seen in severe cerebral dysfunction due to metabolic/hypoxic encephalopathy or medication effects, please correlate clinically The EKG channel showed a regular heart rate of 72 per minute[place] [address] KIT GRISSOM MD Oct 22, 2024 21:36
[2024-10-23] VITALS (86 sets, daily range): BP systolic 79–227; BP diastolic 42–121; PULSE 52–114; RESP 14–21; TEMP 97.7–99.9; O2SAT 100
[2024-10-23] MEDS: DEXMEDETOMIDINE HCL IN D5W 100 ML IV SCH (05:07)
[2024-10-23 05:08] LABS: Hematocrit 29.1 % (36.0-46.0); Hemoglobin 9.8 g/dL (12.2-16.2); Mean Corpuscular Hemoglobin 31.5 pg (28.0-32.0); Mean Corpuscular Hgb Conc. 33.6 g/dL (32.0-36.0); Platelet Count (auto) 228 10^3/uL (140-450); Red Cell Distribution Width 18.8 % (11.8-14.3)
[2024-10-23 05:12] LABS: Band Neutrophils % (manual) 0; Basophils % (manual) 0 (0.0-2.0); Blast Cells 0; Metamyelocytes % 0; Promyelocytes % 0
[2024-10-23 05:19] LABS: Chloride 102 mmol/L (98-107); Potassium 4.1 mmol/L (3.5-5.1); Sodium 142 mmol/L (136-145)
[2024-10-23 05:20] LABS: Anion Gap 13 (5-15); Calcium 10.5 mg/dL (8.7-10.4); Carbon Dioxide 27 mmol/L (20-31)
[2024-10-23 05:25] LABS: Blood Urea Nitrogen 23 mg/dL (9-23); Glucose 102 mg/dL (74-106)
--- NOTE | 2024-10-23 06:01 | DVH ---
CHEST RADIOGRAPH Indication: pneumonia Technique: Single frontal view of the chest was obtained Comparison: XY CHEST PORTABLE on DOS: 10/22/24, XY CHEST PORTABLE on DOS: 10/22/24, XY CHEST PORTABLE o n DOS: 10/21/24 IMPRESSION: Enteric tube tip is less than 1 cm from the ashu, consider mild retraction. Enteric tube tip is within the stomach. The heart appears prominent in size. There is moderate pulmonary vascular congestion, increased. No focal airspace opacity or sizable effusion. No pneumothorax.
[2024-10-23 06:06] LABS: Eosinophils % (manual) 12 (0-7); Lymphocytes % (manual) 21 (10.0-50.0); Monocytes % (manual) 11 (0-12); Myelocytes % 1; Platelet Estimate Adequate; Reactive Lymphocytes 2
--- NOTE | 2024-10-23 10:45 | DVHPN2 ---
Progress Note - Dictate Date Seen: Oct 23, 2024 Has the PT tested + for MRSA If YES, has PT been informed?: No Medical Necessity Reason Pt with a Central, PICC or Fol: No The following are medically ne: Central Line, Ivey Catheter Reason for ivey catheter: Strict I&O Subjective Still intubated vital signs Vital Sign Date Time Temp Pulse Resp B/P (MAP) Pulse Ox O2 Delivery O2 Flow Rate FiO2 10/23/24 10:08 81 14 134/62 (86) 100 30 10/23/24 06:45 99.5 211.1 10/23/24 06:00 Mechanical Ventilator+ Total Intake and Output 10/22/24 10/22/24 10/23/24 15:00 23:00 07:00 Intake Total 258.629 ml 553.23 ml 603.32 ml Output Total 0 ml Balance 258.629 ml 553.23 ml 603.32 ml medications Current Medications Medications Dose Ordered Sig/Maru Route Start Time Stop Time Status Last Admin Dose Admin Patient Own Medication 1 tab DAILY PO 10/18/24 10:00 UNV Sodium Chloride 10 ml Q8HR IV 10/18/24 14:00 10/23/24 06:26 10 ML Docusate Sodium 100 mg BIDPRN PRN PO 10/18/24 07:30 Acetaminophen 650 mg Q6HP PRN PO 10/18/24 07:30 Nitroglycerin 0.4 mg Q5MINP PRN SL 10/18/24 07:30 Morphine Sulfate 2 mg Q30M PRN IV 10/18/24 07:30 Ipratropium [place] 0.5 mg Q4HPRN PRN NEB 10/18/24 07:30 Albuterol 2.5 mg Q4HPRN PRN NEB 10/18/24 07:30 Levetiracetam 100 ml @ 400 mls/hr BID IV 10/18/24 10:00 10/22/24 22:29 400 MLS/HR Lorazepam 1 mg Q5MINP PRN IV 10/18/24 21:00 10/19/24 11:31 1 MG Hydralazine HCl 10 mg Q4HP PRN IV 10/19/24 04:45 10/20/24 06:48 10 MG Enteral Nutritional Formula 1,000 ml 30ML/HR GT 10/20/24 10:15 10/22/24 04:51 1,000 ML Metoprolol Tartrate 50 mg BID PO 10/20/24 22:00 Hold Norepinephrine Bitartrate 250 ml @ 3.75 mls/hr Q24H IV 10/20/24 12:15 UNV Norepinephrine Bitartrate 250 ml @ 3.75 mls/hr Q24H IV 10/20/24 12:15 UNV Piperacillin Sod/ Tazobactam Sod 50 ml @ 12.5 mls/hr Q8HR IV 10/20/24 22:00 10/23/24 06:26 12.5 MLS/HR Pantoprazole Sodium 40 mg DAILY IV 10/21/24 10:00 10/22/24 11:34 40 MG Propofol 100 ml @ 1.77 mls/hr Q24H IV 10/20/24 12:45 10/23/24 00:57 3.54 MLS/HR Midazolam HCl 50 ml @ 1 mls/hr Q24H IV 10/20/24 12:45 Fentanyl Citrate 250 ml @ 2.5 mls/hr Q24H IV 10/20/24 12:45 10/21/24 22:56 7.5 MLS/HR Diagnostic Test (Pha) 1 strip ACHS 10/20/24 22:00 10/23/24 06:25 1 STRIP Insulin Human Regular ACHS SC 10/20/24 22:00 Dextrose 50 ml UD PRN IV 10/20/24 21:45 Labetalol HCl 10 mg Q4HP PRN IV 10/21/24 12:00 Vancomycin HCl 0 ml @ 0 mls/hr UD IV 10/21/24 12:00 Norepinephrine Bitartrate 250 ml @ 0.938 mls/ hr Q24H IV 10/21/24 15:00 10/22/24 22:18 3.75 MLS/HR Phenytoin Sodium 100 mg Q8HR IV 10/22/24 14:00 10/23/24 06:27 100 MG objective Sedated On mechanical ventilation Lungs: rales at bases CV: RR. S4 gallop + Abdomen:L soft, NT NO leg edema Neuro: WNL laboratory and microbiology Laboratory Tests 10/23/24 04:51 Test 10/23/24 04:51 Range/Units Serum Glucose 102 74-106 mg/dL Problem List 1. ESRD 2. CHF, currently she is euvolemic 3. Hypertension 4. Seizure disorder 5. Severe pulmonary hypertension 6. COPD with exacerbation with superimposed pneumonia 7. Anemia of CKD HD today UF goal 1-2 L if possible, there is not much fluid to remove IV antibiotics for pneumonia cardiology for management of pulmonary HTN Not ready for weaning of mechanical ventilation Dietary Evaluation Review Comments: 1) Pro-stat 1 pk BID 2) Nephro-karl 1 tab daily 3) TF Nepro Carb Steady @ 25ml/hr along with current rate of propofol. TF @ goal volume along with Pro-stat & propofol provides 1381 kcal (100% energy needs) & 79gm protein (100% protein needs) Expected Outcomes/Goals: To meet >75% estimated needs Fu 2-3 days Plan discussed with: Other JEROME MAN MD Oct 23, 2024 10:45
--- NOTE | 2024-10-23 13:41 | DVHPN2 ---
Assessment/Plan Assessment/Plan ICU note Covering for dr Carreno fluctuating BP, received hydral prn, will start nicardipine. pending HD. clinically euvolemic to dry. Physical exam sedated, intubated on mechanical vent PERRLA coarse mechanical breath sounds s1 s2 rrr abdomen soft nontender no le edema dry skin Labs ekg imaging reviewed Assessment and plan acute on chronic diastolic heart failure pHTN? hypertension acute metabolic encephalopathy ?seizure? acute on chronic hypoxic RF req mechanical vent COPD group E with exacerbation ESRD on HD protein calorie malnutrition pneumonia gp gn SAT/SBT c/w mechanical vent, decrease rate, repeat gas c/w tube feed npo for cpap c/w Zosyn, vanc c/w Keppra dilantin hd per nephro start nicardipine diet tf dvt ppx heparin gi ppx protonix condition critical prognosis poor full code critical care time 45 minutes Plan discussed with: Other My Orders Orders - TY OCHOA MD Procedure Category Date Status Time Nicardipine PHA 10/23/24 Logged 25mg/250ml Bag Kit 13:45 Basic Metabolic Panel LAB 10/24/24 Verified 04:00 Complete Blood Count LAB 10/24/24 Verified 04:00 Magnesium LAB 10/24/24 Verified 04:00 Phosphorus LAB 10/24/24 Verified 04:00 Date of Service: Oct 23, 2024 Billing Provider: TY OCHOA MD Common Visit Codes: [id number] CARE 30-74 MIN TY OCHOA MD Oct 23, 2024 13:41
[2024-10-23] MEDS: NICARDIPINE HCL IN SODIUM CHLO 200 ML IV SCH (14:00)
--- NOTE | 2024-10-23 14:18 | DVHPN2 ---
Progress Note - Dictate Date Seen: Oct 23, 2024 Has the PT tested + for MRSA If YES, has PT been informed?: No Medical Necessity Reason Pt with a Central, PICC or Fol: No The following are medically ne: Central Line, Ivey Catheter Reason for ivey catheter: Strict I&O vital signs Vital Sign Date Time Temp Pulse Resp B/P (MAP) Pulse Ox O2 Delivery O2 Flow Rate FiO2 10/23/24 13:55 75 14 170/81 (110) 100 30 10/23/24 13:45 99.1 210.4 10/23/24 06:00 Mechanical Ventilator+ Total Intake and Output 10/22/24 10/22/24 10/23/24 15:00 23:00 07:00 Intake Total 258.629 ml 553.23 ml 603.32 ml Output Total 0 ml Balance 258.629 ml 553.23 ml 603.32 ml medications Current Medications Medications Dose Ordered Sig/Maru Route Start Time Stop Time Status Last Admin Dose Admin Patient Own Medication 1 tab DAILY PO 10/18/24 10:00 UNV Sodium Chloride 10 ml Q8HR IV 10/18/24 14:00 10/23/24 14:02 10 ML Docusate Sodium 100 mg BIDPRN PRN PO 10/18/24 07:30 Acetaminophen 650 mg Q6HP PRN PO 10/18/24 07:30 Nitroglycerin 0.4 mg Q5MINP PRN SL 10/18/24 07:30 Morphine Sulfate 2 mg Q30M PRN IV 10/18/24 07:30 Ipratropium [place] 0.5 mg Q4HPRN PRN NEB 10/18/24 07:30 Albuterol 2.5 mg Q4HPRN PRN NEB 10/18/24 07:30 Levetiracetam 100 ml @ 400 mls/hr BID IV 10/18/24 10:00 10/23/24 14:01 400 MLS/HR Lorazepam 1 mg Q5MINP PRN IV 10/18/24 21:00 10/19/24 11:31 1 MG Enteral Nutritional Formula 1,000 ml 30ML/HR GT 10/20/24 10:15 10/22/24 04:51 1,000 ML Metoprolol Tartrate 50 mg BID PO 10/20/24 22:00 Hold Norepinephrine Bitartrate 250 ml @ 3.75 mls/hr Q24H IV 10/20/24 12:15 UNV Norepinephrine Bitartrate 250 ml @ 3.75 mls/hr Q24H IV 10/20/24 12:15 UNV Piperacillin Sod/ Tazobactam Sod 50 ml @ 12.5 mls/hr Q8HR IV 10/20/24 22:00 10/23/24 14:01 12.5 MLS/HR Pantoprazole Sodium 40 mg DAILY IV 10/21/24 10:00 10/23/24 14:01 40 MG Propofol 100 ml @ 1.77 mls/hr Q24H IV 10/20/24 12:45 10/23/24 00:57 3.54 MLS/HR Midazolam HCl 50 ml @ 1 mls/hr Q24H IV 10/20/24 12:45 Fentanyl Citrate 250 ml @ 2.5 mls/hr Q24H IV 10/20/24 12:45 10/21/24 22:56 7.5 MLS/HR Diagnostic Test (Pha) 1 strip ACHS 10/20/24 22:00 10/23/24 11:30 1 STRIP Insulin Human Regular ACHS SC 10/20/24 22:00 Dextrose 50 ml UD PRN IV 10/20/24 21:45 Labetalol HCl 10 mg Q4HP PRN IV 10/21/24 12:00 Vancomycin HCl 0 ml @ 0 mls/hr UD IV 10/21/24 12:00 Norepinephrine Bitartrate 250 ml @ 0.938 mls/ hr Q24H IV 10/21/24 15:00 10/22/24 22:18 3.75 MLS/HR Phenytoin Sodium 100 mg Q8HR IV 10/22/24 14:00 10/23/24 14:01 100 MG Nicardipine/ Sodium Chloride 200 ml @ 50 mls/hr Q4H IV 10/23/24 14:00 laboratory and microbiology Laboratory Tests 10/23/24 04:51 Test 10/23/24 04:51 Range/Units Serum Glucose 102 74-106 mg/dL Assessment/Plan Impression Acute hypoxemic respiratory failure Acute COPD exacerbation ESRD on HD Pneumonia CHF Patient seen and examined in [facility] Events On mechanical ventilation S/p intubation PEEP 5, FiO2 35% Off sedation since this morning Patient not waking up Labs and imaging reviewed ABG reviewed Management Vent support Titrate to maintain sats 90% or above When patient is more awake, proceed to weaning trial Pressure support 11/13, extubate when ready Continue antibiotics F/u cultures Bronchodilators Monitor renal function HD as per nephrology Management deferred Monitor electrolytes Supplement as needed Pressors as needed for hemodynamic support To maintain a mean arterial pressure of 65 mmHg DVT prophylaxis Critical care time 35 minutes Dietary Evaluation Review Comments: 1) Pro-stat 1 pk BID 2) Nephro-karl 1 tab daily 3) TF Nepro Carb Steady @ 25ml/hr along with current rate of propofol. TF @ goal volume along with Pro-stat & propofol provides 1381 kcal (100% energy needs) & 79gm protein (100% protein needs) Expected Outcomes/Goals: To meet >75% estimated needs Fu 2-3 days Plan discussed with: Other (Rn) BEST BRANNON MD Oct 23, 2024 14:18
--- NOTE | 2024-10-23 20:28 | DVHPN2 ---
Progress Note - Dictate Date Seen: Oct 23, 2024 Has the PT tested + for MRSA If YES, has PT been informed?: No Medical Necessity Reason Pt with a Central, PICC or Fol: No The following are medically ne: Central Line, Ivey Catheter Reason for ivey catheter: Strict I&O Subjective Ms. Wright is a 68 years old female with a history of hypertension, end-stage renal failure on hemodialysis, seizure disorder, goes she was brought to the [facility] on 10/18/2024 with a chief complaint of SOB, ALOC. I saw her on 09/13/2024 for encephalopathy I have seen and examined the patient, I have talked to her nurse, she is intubated, on Precedex, responsive to painful stimuli She was arousable earlier today She developed respiratory distress and was intubated on 10/21/2024 Phenytoin, 09/13/2024: 4.9, 10/22/24: 11.3 (albumin: 2.9) WBC/HB/PLT/MCV, 09/12/2024: 4/9.9/160/86.7, 10/18/2024: 7.4/9.2/304/93.6 BUN/CR, 09/12/2024: 28/6.37, 10/18/2024: 29/7.25, 10/19/2024: 35/8.25 GFR, 10/19/2024: 5 TBI/AST/ALT/AP, 09/12/2024: 0.6/67/30/143 Lactic acid, 10/18/24: 1 TSH, 09/13/2024: 2.01 EEG, 09/14/24: A moderately abnormal EEG Chest x-ray, 09/11/2024: 1. Moderately severe cardiomegaly 2. Moderate bilateral interstitial changes CT head, 09/12/2024: 1. No acute intracranial hemorrhage 2. No CT findings of territorial ischemia CT head, 10/18/2024: 1. Generalized brain atrophy. 2. Small vessel ischemic/degenerative changes. 3. No acute intracranial hemorrhage, midline shift or mass effect. If symptoms persist, further evaluation with MRI is recommended. MRI head, 09/19/2024: No acute infarct, intracranial hemorrhage, mass effect, or hydrocephalus MRI head, 10/18/2024: No evidence of acute infarction, intracranial hemorrhage, mass effect or hydrocephalus. Moderate changes of chronic microvascular ischemic disease. vital signs Vital Sign Date Time Temp Pulse Resp B/P (MAP) Pulse Ox O2 Delivery O2 Flow Rate FiO2 10/23/24 20:03 59 14 110/59 (76) 100 30 10/23/24 20:00 98.6 209.5 10/23/24 20:00 Mechanical Ventilator+ Total Intake and Output 10/22/24 10/22/24 10/23/24 15:00 23:00 07:00 Intake Total 258.629 ml 553.23 ml 603.32 ml Output Total 0 ml Balance 258.629 ml 553.23 ml 603.32 ml medications Current Medications Medications Dose Ordered Sig/Maru Route Start Time Stop Time Status Last Admin Dose Admin Patient Own Medication 1 tab DAILY PO 10/18/24 10:00 UNV Sodium Chloride 10 ml Q8HR IV 10/18/24 14:00 10/23/24 14:02 10 ML Docusate Sodium 100 mg BIDPRN PRN PO 10/18/24 07:30 Acetaminophen 650 mg Q6HP PRN PO 10/18/24 07:30 Nitroglycerin 0.4 mg Q5MINP PRN SL 10/18/24 07:30 Morphine Sulfate 2 mg Q30M PRN IV 10/18/24 07:30 Ipratropium [place] 0.5 mg Q4HPRN PRN NEB 10/18/24 07:30 Albuterol 2.5 mg Q4HPRN PRN NEB 10/18/24 07:30 Levetiracetam 100 ml @ 400 mls/hr BID IV 10/18/24 10:00 10/23/24 14:01 400 MLS/HR Lorazepam 1 mg Q5MINP PRN IV 10/18/24 21:00 10/19/24 11:31 1 MG Enteral Nutritional Formula 1,000 ml 30ML/HR GT 10/20/24 10:15 10/22/24 04:51 1,000 ML Metoprolol Tartrate 50 mg BID PO 10/20/24 22:00 Hold Norepinephrine Bitartrate 250 ml @ 3.75 mls/hr Q24H IV 10/20/24 12:15 UNV Norepinephrine Bitartrate 250 ml @ 3.75 mls/hr Q24H IV 10/20/24 12:15 UNV Piperacillin Sod/ Tazobactam Sod 50 ml @ 12.5 mls/hr Q8HR IV 10/20/24 22:00 10/23/24 14:01 12.5 MLS/HR Pantoprazole Sodium 40 mg DAILY IV 10/21/24 10:00 10/23/24 14:01 40 MG Propofol 100 ml @ 1.77 mls/hr Q24H IV 10/20/24 12:45 10/23/24 00:57 3.54 MLS/HR Midazolam HCl 50 ml @ 1 mls/hr Q24H IV 10/20/24 12:45 Fentanyl Citrate 250 ml @ 2.5 mls/hr Q24H IV 10/20/24 12:45 10/21/24 22:56 7.5 MLS/HR Diagnostic Test (Pha) 1 strip ACHS 10/20/24 22:00 10/23/24 17:00 1 STRIP Insulin Human Regular ACHS SC 10/20/24 22:00 Dextrose 50 ml UD PRN IV 10/20/24 21:45 Labetalol HCl 10 mg Q4HP PRN IV 10/21/24 12:00 Vancomycin HCl 0 ml @ 0 mls/hr UD IV 10/21/24 12:00 Norepinephrine Bitartrate 250 ml @ 0.938 mls/ hr Q24H IV 10/21/24 15:00 10/22/24 22:18 3.75 MLS/HR Phenytoin Sodium 100 mg Q8HR IV 10/22/24 14:00 10/23/24 14:01 100 MG Nicardipine/ Sodium Chloride 200 ml @ 50 mls/hr Q4H IV 10/23/24 14:00 objective The patient is well-nourished and well-developed with no distress. The patient is intubated MENTAL STATUS: Subjective CRANIAL NERVES: Pupils are equal, round and reactive.There are corneal reflexes and doll's eyes phenomenon. No signs of facial weakness. There are gagging or coughing reflexes SENSATION: No responses to pain stimuli. MOTOR: Normal tone in the upper and lower extremity. Normal muscle bulk. No fasciculations. No spontaneous movement. REFLEXES: Deep tendon reflexes are symmetrical. No pathological reflexes. CEREBELLAR/COORDINATION: Deferred GAIT/STATION: deferred. laboratory and microbiology Laboratory Tests 10/23/24 04:51 Test 10/23/24 04:51 Range/Units Serum Glucose 102 74-106 mg/dL Problem List Acute respiratory failure Altered mental status Metabolic encephalopathy Hypoxic encephalopathy ? Seizure activity on 10/19/24 Visual hallucination secondary to metabolic encephalopathy Seizure disorder, according to description she has Grand mal seizure Partial complex seizure End-stage renal failure on hemodialysis Assessment/Plan Monitoring Supportive treatment EEG ICU care Stabilize vitals Respiratory support/vent management Dilantin 100 mg IV Tid. Keppra 500 mg IV b.i.d. (ESRF) Ativan for seizure breakthrough Nephrology Re: Kidney failure DVT prophylaxiuds More recommendation per clinical course This medical document was created using an electronic medical record system with [employer] dictation system. Although this document has been carefully reviewed, there may still be some phonetic and typographical errors. These areas are purely typographical due to imperfections of the software programs, and do not reflect any compromise in the patient's medical care Prognosis guarded Dietary Evaluation Review Comments: 1) Pro-stat 1 pk BID 2) Nephro-karl 1 tab daily 3) TF Nepro Carb Steady @ 25ml/hr along with current rate of propofol. TF @ goal volume along with Pro-stat & propofol provides 1381 kcal (100% energy needs) & 79gm protein (100% protein needs) Expected Outcomes/Goals: To meet >75% estimated needs Fu 2-3 days Plan discussed with: Other Critical Care Time(min): 30 KIT GRISSOM MD Oct 23, 2024 20:28
[2024-10-23] MEDS: EPOETIN ALFA-EPBX 4,000 UNIT/ML VIAL SC ONE (21:00)
[2024-10-24] VITALS (99 sets, daily range): BP systolic 78–208; BP diastolic 53–117; PULSE 51–85; RESP 14–28; TEMP 97.2–98.1; O2SAT 78–100
[2024-10-24 04:59] LABS: Hematocrit 29.2 % (36.0-46.0); Hemoglobin 9.7 g/dL (12.2-16.2); Mean Corpuscular Hemoglobin 31.4 pg (28.0-32.0); Mean Corpuscular Hgb Conc. 33.3 g/dL (32.0-36.0); Mean Corpuscular Volume 94.4 fL (80.0-100.0); Platelet Count (auto) 227 10^3/uL (140-450); White Blood Cell 9.3 10^3/uL (4.4-10.8)
[2024-10-24 05:02] LABS: Band Neutrophils % (manual) 0; Basophils % (manual) 0 (0.0-2.0); Blast Cells 0; Metamyelocytes % 0; Myelocytes % 0; Promyelocytes % 0; Reactive Lymphocytes 0
[2024-10-24 05:03] LABS: Chloride 102 mmol/L (98-107); Potassium 4.3 mmol/L (3.5-5.1); Sodium 142 mmol/L (136-145)
[2024-10-24 05:04] LABS: Anion Gap 14 (5-15); Calcium 10.1 mg/dL (8.7-10.4); Carbon Dioxide 26 mmol/L (20-31)
[2024-10-24 05:09] LABS: BUN/Creatinine Ratio 4.5 (10.0-20.0)
[2024-10-24 05:10] LABS: Blood Urea Nitrogen 33 mg/dL (9-23); Glucose 114 mg/dL (74-106); Magnesium 2.2 mg/dL (1.6-2.6)
[2024-10-24 05:56] LABS: Eosinophils % (manual) 16 (0-7); Lymphocytes % (manual) 23 (10.0-50.0); Monocytes % (manual) 11 (0-12); Platelet Estimate Adequate
[2024-10-24] MEDS: LABETALOL HCL 20 MG/4 ML VL IV PRN (09:36)
--- NOTE | 2024-10-24 11:43 | DVHPN2 ---
Progress Note - Dictate Date Seen: Oct 24, 2024 Has the PT tested + for MRSA If YES, has PT been informed?: No Medical Necessity Reason Pt with a Central, PICC or Fol: No The following are medically ne: Central Line, Ivey Catheter Reason for ivey catheter: Strict I&O Subjective Lethargic vital signs Vital Sign Date Time Temp Pulse Resp B/P (MAP) Pulse Ox O2 Delivery O2 Flow Rate FiO2 10/24/24 11:28 184/99 10/24/24 11:09 64 14 100 30 10/24/24 08:00 97.3 207.1 10/24/24 06:00 Mechanical Ventilator+ Total Intake and Output 10/23/24 10/23/24 10/24/24 15:00 23:00 07:00 Intake Total 148.570 ml 389.2 ml 259.55 ml Output Total 0 ml 0 ml Balance 148.570 ml 389.2 ml 259.55 ml medications Current Medications Medications Dose Ordered Sig/Maru Route Start Time Stop Time Status Last Admin Dose Admin Patient Own Medication 1 tab DAILY PO 10/18/24 10:00 UNV Sodium Chloride 10 ml Q8HR IV 10/18/24 14:00 10/24/24 06:29 10 ML Docusate Sodium 100 mg BIDPRN PRN PO 10/18/24 07:30 Acetaminophen 650 mg Q6HP PRN PO 10/18/24 07:30 Nitroglycerin 0.4 mg Q5MINP PRN SL 10/18/24 07:30 Morphine Sulfate 2 mg Q30M PRN IV 10/18/24 07:30 Ipratropium [place] 0.5 mg Q4HPRN PRN NEB 10/18/24 07:30 Albuterol 2.5 mg Q4HPRN PRN NEB 10/18/24 07:30 Levetiracetam 100 ml @ 400 mls/hr BID IV 10/18/24 10:00 10/23/24 21:51 400 MLS/HR Lorazepam 1 mg Q5MINP PRN IV 10/18/24 21:00 10/19/24 11:31 1 MG Enteral Nutritional Formula 1,000 ml 30ML/HR GT 10/20/24 10:15 10/22/24 04:51 1,000 ML Metoprolol Tartrate 50 mg BID PO 10/20/24 22:00 Hold Norepinephrine Bitartrate 250 ml @ 3.75 mls/hr Q24H IV 10/20/24 12:15 UNV Norepinephrine Bitartrate 250 ml @ 3.75 mls/hr Q24H IV 10/20/24 12:15 UNV Piperacillin Sod/ Tazobactam Sod 50 ml @ 12.5 mls/hr Q8HR IV 10/20/24 22:00 10/24/24 06:29 12.5 MLS/HR Pantoprazole Sodium 40 mg DAILY IV 10/21/24 10:00 10/23/24 14:01 40 MG Propofol 100 ml @ 1.77 mls/hr Q24H IV 10/20/24 12:45 10/23/24 00:57 3.54 MLS/HR Midazolam HCl 50 ml @ 1 mls/hr Q24H IV 10/20/24 12:45 Fentanyl Citrate 250 ml @ 2.5 mls/hr Q24H IV 10/20/24 12:45 10/21/24 22:56 7.5 MLS/HR Diagnostic Test (Pha) 1 strip ACHS 10/20/24 22:00 10/24/24 07:22 1 STRIP Insulin Human Regular ACHS SC 10/20/24 22:00 Dextrose 50 ml UD PRN IV 10/20/24 21:45 Labetalol HCl 10 mg Q4HP PRN IV 10/21/24 12:00 10/24/24 09:36 10 MG Vancomycin HCl 0 ml @ 0 mls/hr UD IV 10/21/24 12:00 Norepinephrine Bitartrate 250 ml @ 0.938 mls/ hr Q24H IV 10/21/24 15:00 10/22/24 22:18 3.75 MLS/HR Phenytoin Sodium 100 mg Q8HR IV 10/22/24 14:00 10/24/24 06:29 100 MG Nicardipine/ Sodium Chloride 200 ml @ 50 mls/hr Q4H IV 10/23/24 14:00 10/24/24 11:28 50 MLS/HR objective Sedated On mechanical ventilation Lungs: rales at bases CV: RR. S4 gallop + Abdomen:L soft, NT NO leg edema Neuro: WNL laboratory and microbiology Laboratory Tests 10/24/24 04:42 Test 10/24/24 04:42 Range/Units Serum Glucose 114 H 74-106 mg/dL Problem List 1. ESRD, stable, had HD yesterday 2. CHF, currently she is euvolemic 3. Hypertension 4. Seizure disorder 5. Severe pulmonary hypertension 6. COPD with exacerbation with superimposed pneumonia 7. Anemia of CKD 8. Metabolic encephalopathy HD to continue on TTS schedule IV antibiotics for pneumonia cardiology for management of pulmonary HTN Not ready for weaning of mechanical ventilation Dietary Evaluation Review Comments: 1) Pro-stat 1 pk BID 2) Nephro-karl 1 tab daily 3) TF Nepro Carb Steady @ 25ml/hr along with current rate of propofol. TF @ goal volume along with Pro-stat & propofol provides 1381 kcal (100% energy needs) & 79gm protein (100% protein needs) Expected Outcomes/Goals: To meet >75% estimated needs Fu 2-3 days Plan discussed with: JEROME Maravilla MD Oct 24, 2024 11:43
--- NOTE | 2024-10-24 12:08 | DVHPN2 ---
Assessment/Plan Assessment/Plan ICU note Covering for dr Carreno restart nicardipine, HD per renal, restart metop PO. hold CPAP today Physical exam sedated, intubated on mechanical vent PERRLA coarse mechanical breath sounds s1 s2 rrr abdomen soft nontender no le edema dry skin Labs ekg imaging reviewed Assessment and plan acute on chronic diastolic heart failure pHTN? hypertension acute metabolic encephalopathy ?seizure? acute on chronic hypoxic RF req mechanical vent COPD group E with exacerbation ESRD on HD protein calorie malnutrition pneumonia gp gn SAT/SBT c/w mechanical vent, decrease rate, repeat gas c/w tube feed npo for cpap c/w Zosyn, vanc c/w Keppra dilantin hd per nephro start nicardipine diet tf dvt ppx heparin gi ppx protonix condition critical prognosis poor full code critical care time 35 minutes Plan discussed with: Other My Orders Orders - TY OCHOA MD Procedure Category Date Status Time Nicardipine Hcl In PHA 10/23/24 In Process Sodium Chlo (Cardene 14:00 Metoprolol Tartrate PHA 10/24/24 Verified Tablet (Lopressor Ta 12:15 Magnesium LAB 10/25/24 Verified 04:00 Phosphorus LAB 10/25/24 Verified 04:00 Date of Service: Oct 24, 2024 Billing Provider: TY OCHOA MD Common Visit Codes: 36171-[id number] CARE 30-74 MIN TY OCHOA MD Oct 24, 2024 12:08
--- NOTE | 2024-10-24 16:40 | DVHPN2 ---
Progress Note - Dictate Date Seen: Oct 24, 2024 Has the PT tested + for MRSA If YES, has PT been informed?: No Medical Necessity Reason Pt with a Central, PICC or Fol: No The following are medically ne: Central Line, Ivey Catheter Reason for ivey catheter: Strict I&O vital signs Vital Sign Date Time Temp Pulse Resp B/P (MAP) Pulse Ox O2 Delivery O2 Flow Rate FiO2 10/24/24 16:21 144/63 10/24/24 15:19 80 15 100 30 10/24/24 11:45 Mechanical Ventilator+ 10/24/24 08:00 97.3 207.1 Total Intake and Output 10/23/24 10/23/24 10/24/24 15:00 23:00 07:00 Intake Total 148.570 ml 389.2 ml 259.55 ml Output Total 0 ml 0 ml Balance 148.570 ml 389.2 ml 259.55 ml medications Current Medications Medications Dose Ordered Sig/Maru Route Start Time Stop Time Status Last Admin Dose Admin Patient Own Medication 1 tab DAILY PO 10/18/24 10:00 UNV Sodium Chloride 10 ml Q8HR IV 10/18/24 14:00 10/24/24 16:21 10 ML Docusate Sodium 100 mg BIDPRN PRN PO 10/18/24 07:30 Acetaminophen 650 mg Q6HP PRN PO 10/18/24 07:30 Nitroglycerin 0.4 mg Q5MINP PRN SL 10/18/24 07:30 Morphine Sulfate 2 mg Q30M PRN IV 10/18/24 07:30 Ipratropium [place] 0.5 mg Q4HPRN PRN NEB 10/18/24 07:30 Albuterol 2.5 mg Q4HPRN PRN NEB 10/18/24 07:30 Levetiracetam 100 ml @ 400 mls/hr BID IV 10/18/24 10:00 10/23/24 21:51 400 MLS/HR Lorazepam 1 mg Q5MINP PRN IV 10/18/24 21:00 10/19/24 11:31 1 MG Enteral Nutritional Formula 1,000 ml 30ML/HR GT 10/20/24 10:15 10/22/24 04:51 1,000 ML Norepinephrine Bitartrate 250 ml @ 3.75 mls/hr Q24H IV 10/20/24 12:15 UNV Norepinephrine Bitartrate 250 ml @ 3.75 mls/hr Q24H IV 10/20/24 12:15 UNV Piperacillin Sod/ Tazobactam Sod 50 ml @ 12.5 mls/hr Q8HR IV 10/20/24 22:00 10/24/24 06:29 12.5 MLS/HR Pantoprazole Sodium 40 mg DAILY IV 10/21/24 10:00 10/23/24 14:01 40 MG Propofol 100 ml @ 1.77 mls/hr Q24H IV 10/20/24 12:45 10/24/24 16:21 1.77 MLS/HR Midazolam HCl 50 ml @ 1 mls/hr Q24H IV 10/20/24 12:45 Fentanyl Citrate 250 ml @ 2.5 mls/hr Q24H IV 10/20/24 12:45 10/21/24 22:56 7.5 MLS/HR Diagnostic Test (Pha) 1 strip ACHS 10/20/24 22:00 10/24/24 11:42 1 STRIP Insulin Human Regular ACHS SC 10/20/24 22:00 Dextrose 50 ml UD PRN IV 10/20/24 21:45 Vancomycin HCl 0 ml @ 0 mls/hr UD IV 10/21/24 12:00 Phenytoin Sodium 100 mg Q8HR IV 10/22/24 14:00 10/24/24 06:29 100 MG Nicardipine/ Sodium Chloride 200 ml @ 50 mls/hr Q4H IV 10/23/24 14:00 10/24/24 15:03 50 MLS/HR Metoprolol Tartrate 50 mg BID PO 10/24/24 12:15 laboratory and microbiology Laboratory Tests 10/24/24 04:42 Test 10/24/24 04:42 Range/Units Serum Glucose 114 H 74-106 mg/dL Assessment/Plan Impression Acute hypoxemic respiratory failure Acute COPD exacerbation ESRD on HD Pneumonia CHF Patient seen and examined in [facility] Events On mechanical ventilation S/p intubation PEEP 5, FiO2 35% Labs and imaging reviewed ABG reviewed Management Vent support Titrate to maintain sats 90% or above When patient is more awake, proceed to weaning trial Pressure support 7/5, extubate when ready Continue antibiotics F/u cultures Bronchodilators Monitor renal function HD as per nephrology Management deferred Monitor electrolytes Supplement as needed Pressors as needed for hemodynamic support To maintain a mean arterial pressure of 65 mmHg DVT prophylaxis Critical care time 35 minutes Dietary Evaluation Review Comments: 1) Pro-stat 1 pk BID 2) Nephro-karl 1 tab daily 3) TF Nepro Carb Steady @ 25ml/hr along with current rate of propofol. TF @ goal volume along with Pro-stat & propofol provides 1381 kcal (100% energy needs) & 79gm protein (100% protein needs) Expected Outcomes/Goals: To meet >75% estimated needs Fu 2-3 days Plan discussed with: Other (Rn) BEST BRANNON MD Oct 24, 2024 16:40
[2024-10-24] MEDS: METOPROLOL TARTRATE 50 MG TAB PO SCH (22:00)
[2024-10-25] VITALS (106 sets, daily range): BP systolic 85–233; BP diastolic 54–117; PULSE 53–85; RESP 14–24; TEMP 92.7–99.7; O2SAT 89–100
[2024-10-25 05:30] LABS: Hematocrit 29.3 % (36.0-46.0); Hemoglobin 9.8 g/dL (12.2-16.2); Magnesium 2.5 mg/dL (1.6-2.6); Mean Corpuscular Hemoglobin 31.1 pg (28.0-32.0); Mean Corpuscular Hgb Conc. 33.3 g/dL (32.0-36.0); Mean Corpuscular Volume 93.4 fL (80.0-100.0); Platelet Count (auto) 245 10^3/uL (140-450); Red Blood Cells 3.13 10^6/uL (4.0-5.20); Red Cell Distribution Width 19.9 % (11.8-14.3); White Blood Cell 10.7 10^3/uL (4.4-10.8)
[2024-10-25 05:32] LABS: Basophils % (manual) 0 (0.0-2.0); Blast Cells 0; Metamyelocytes % 0; Myelocytes % 0; Phosphorus 5.7 mg/dL (2.4-5.1); Promyelocytes % 0; Reactive Lymphocytes 0
[2024-10-25 06:13] LABS: Band Neutrophils % (manual) 1; Eosinophils % (manual) 11 (0-7); Lymphocytes % (manual) 16 (10.0-50.0); Monocytes % (manual) 11 (0-12); Platelet Estimate Adequate
[2024-10-25 06:43] LABS: Base Excess -2.2 mmol/L (-2.0-3.0)
--- NOTE | 2024-10-25 09:31 | DVHPN2 ---
Progress Note - Dictate Date Seen: Oct 25, 2024 Has the PT tested + for MRSA If YES, has PT been informed?: No Medical Necessity Reason Pt with a Central, PICC or Fol: No The following are medically ne: Central Line, Ivey Catheter Reason for ivey catheter: Strict I&O Subjective Ms. Wright is a 68 years old female with a history of hypertension, end-stage renal failure on hemodialysis, seizure disorder, goes she was brought to the [facility] on 10/18/2024 with a chief complaint of SOB, ALOC. I saw her on 09/13/2024 for encephalopathy I have seen and examined the patient, I have talked to her nurse, she is intubated, sedated, responsive to touch stimuli with right arm movements. She is on one blanket for hypothermia According to her nurse, the patient open her eyes on 10/24/2024 with less sedation, but she did not follow verbal commands She developed respiratory distress and was intubated on 10/21/2024 Phenytoin, 09/13/2024: 4.9, 10/22/24: 11.3 (albumin: 2.9), 10/24/2024: 13.6 WBC/HB/PLT/MCV, 09/12/2024: 4/9.9/160/86.7, 10/18/2024: 7.4/9.2/304/93.6 BUN/CR, 09/12/2024: 28/6.37, 10/18/2024: 29/7.25, 10/19/2024: 35/8.25 GFR, 10/19/2024: 5 TBI/AST/ALT/AP, 09/12/2024: 0.6/67/30/143 Lactic acid, 10/18/24: 1 TSH, 09/13/2024: 2.01 EEG, 09/14/24: A moderately abnormal EEG Chest x-ray, 09/11/2024: 1. Moderately severe cardiomegaly 2. Moderate bilateral interstitial changes CT head, 09/12/2024: 1. No acute intracranial hemorrhage 2. No CT findings of territorial ischemia CT head, 10/18/2024: 1. Generalized brain atrophy. 2. Small vessel ischemic/degenerative changes. 3. No acute intracranial hemorrhage, midline shift or mass effect. If symptoms persist, further evaluation with MRI is recommended. MRI head, 09/19/2024: No acute infarct, intracranial hemorrhage, mass effect, or hydrocephalus MRI head, 10/18/2024: No evidence of acute infarction, intracranial hemorrhage, mass effect or hydrocephalus. Moderate changes of chronic microvascular ischemic disease. vital signs Vital Sign Date Time Temp Pulse Resp B/P (MAP) Pulse Ox O2 Delivery O2 Flow Rate FiO2 10/25/24 08:01 56 14 148/76 (100) 100 30 10/25/24 06:00 Mechanical Ventilator+ 10/25/24 04:00 97.7 97.7 Total Intake and Output 10/24/24 10/24/24 10/25/24 15:00 23:00 07:00 Intake Total 260.650 ml 794.385 ml 416.11 ml Output Total 0 ml 2 ml Balance 260.650 ml 794.385 ml 414.11 ml medications Current Medications Medications Dose Ordered Sig/Maru Route Start Time Stop Time Status Last Admin Dose Admin Patient Own Medication 1 tab DAILY PO 10/18/24 10:00 UNV Sodium Chloride 10 ml Q8HR IV 10/18/24 14:00 10/25/24 06:15 10 ML Docusate Sodium 100 mg BIDPRN PRN PO 10/18/24 07:30 Acetaminophen 650 mg Q6HP PRN PO 10/18/24 07:30 Nitroglycerin 0.4 mg Q5MINP PRN SL 10/18/24 07:30 Morphine Sulfate 2 mg Q30M PRN IV 10/18/24 07:30 Ipratropium [place] 0.5 mg Q4HPRN PRN NEB 10/18/24 07:30 Albuterol 2.5 mg Q4HPRN PRN NEB 10/18/24 07:30 Levetiracetam 100 ml @ 400 mls/hr BID IV 10/18/24 10:00 10/24/24 21:59 400 MLS/HR Lorazepam 1 mg Q5MINP PRN IV 10/18/24 21:00 10/19/24 11:31 1 MG Enteral Nutritional Formula 1,000 ml 30ML/HR GT 10/20/24 10:15 10/22/24 04:51 1,000 ML Norepinephrine Bitartrate 250 ml @ 3.75 mls/hr Q24H IV 10/20/24 12:15 UNV Norepinephrine Bitartrate 250 ml @ 3.75 mls/hr Q24H IV 10/20/24 12:15 UNV Piperacillin Sod/ Tazobactam Sod 50 ml @ 12.5 mls/hr Q8HR IV 10/20/24 22:00 10/25/24 06:15 12.5 MLS/HR Pantoprazole Sodium 40 mg DAILY IV 10/21/24 10:00 10/24/24 17:01 40 MG Propofol 100 ml @ 1.77 mls/hr Q24H IV 10/20/24 12:45 10/24/24 23:24 12.39 MLS/HR Midazolam HCl 50 ml @ 1 mls/hr Q24H IV 10/20/24 12:45 Fentanyl Citrate 250 ml @ 2.5 mls/hr Q24H IV 10/20/24 12:45 10/21/24 22:56 7.5 MLS/HR Diagnostic Test (Pha) 1 strip ACHS 10/20/24 22:00 10/25/24 07:04 1 STRIP Insulin Human Regular ACHS SC 10/20/24 22:00 Dextrose 50 ml UD PRN IV 10/20/24 21:45 Vancomycin HCl 0 ml @ 0 mls/hr UD IV 10/21/24 12:00 Phenytoin Sodium 100 mg Q8HR IV 10/22/24 14:00 10/25/24 06:15 100 MG Nicardipine/ Sodium Chloride 200 ml @ 50 mls/hr Q4H IV 10/23/24 14:00 10/25/24 04:20 25 MLS/HR Metoprolol Tartrate 50 mg BID PO 10/24/24 12:15 objective The patient is well-nourished and well-developed with no distress. The patient is intubated MENTAL STATUS: Subjective CRANIAL NERVES: Pupils are equal, round and reactive.There are corneal reflexes and doll's eyes phenomenon. No signs of facial weakness. There are gagging or coughing reflexes SENSATION: Responsive to touch MOTOR: Normal tone in the upper and lower extremity. Normal muscle bulk. No fasciculations. No spontaneous movement. REFLEXES: Deep tendon reflexes are symmetrical. No pathological reflexes. CEREBELLAR/COORDINATION: Deferred GAIT/STATION: deferred. laboratory and microbiology Laboratory Tests 10/25/24 04:39 10/24/24 04:42 Test 10/24/24 04:42 Range/Units Serum Glucose 114 H 74-106 mg/dL Problem List Acute respiratory failure Altered mental status Metabolic encephalopathy Hypoxic encephalopathy ? Seizure activity on 10/19/24 Visual hallucination secondary to metabolic encephalopathy Seizure disorder, according to description she has Grand mal seizure Partial complex seizure End-stage renal failure on hemodialysis Assessment/Plan Monitoring Supportive treatment EEG ICU care Stabilize vitals Respiratory support/vent management Dilantin 100 mg IV Tid. Keppra 500 mg IV b.i.d. (ESRF) Ativan for seizure breakthrough Nephrology Re: Kidney failure DVT prophylaxiuds More recommendation per clinical course This medical document was created using an electronic medical record system with [employer] dictation system. Although this document has been carefully reviewed, there may still be some phonetic and typographical errors. These areas are purely typographical due to imperfections of the software programs, and do not reflect any compromise in the patient's medical care Prognosis guarded Dietary Evaluation Review Comments: 1) Pro-stat 1 pk BID 2) Nephro-karl 1 tab daily 3) TF Nepro Carb Steady @ 25ml/hr along with current rate of propofol. TF @ goal volume along with Pro-stat & propofol provides 1381 kcal (100% energy needs) & 79gm protein (100% protein needs) Expected Outcomes/Goals: To meet >75% estimated needs Fu 2-3 days Plan discussed with: Other KIT GRISSOM MD Oct 25, 2024 09:31
--- NOTE | 2024-10-25 10:34 | DVH ---
INDICATION: PT INTUBATED/RESP FAILURE TECHNIQUE: Single frontal view of the chest was obtained COMPARISON: XY CHEST XRAY 1 VIEW on DOS: 10/23/24, XY CHEST PORTABLE on DOS: 10/22/24, XY CHEST PORTABL E on DOS: 10/22/24, XY CHEST PORTABLE on DOS: 10/21/24, XY CHEST XRAY 1 VIEW on DOS: 10/20/24, XY CHEST XRAY 1 VIEW on DOS: 10/23/24 FINDINGS: Lines and tubes are unchanged. Unchanged cardiomegaly. Unchanged interstitial edema IMPRESSION: No interval improvement. Or
--- NOTE | 2024-10-25 11:48 | MEDREC ---
[facility] Intervention Section I [facility] Intervention: Deescalate AB based on CS (PLEASE CONSIDER DE-ESCALATION BASED ON CULTURE RESULTS (D/C VANCOMYCIN) ) JUANA GIL PHARMACIST Oct 25, 2024 11:48
[2024-10-25 13:17] LABS: Anion Gap 17 (5-15); Carbon Dioxide 24 mmol/L (20-31); Chloride 102 mmol/L (98-107); Potassium 3.9 mmol/L (3.5-5.1); Sodium 143 mmol/L (136-145)
[2024-10-25 13:18] LABS: Calcium 9.7 mg/dL (8.7-10.4)
[2024-10-25 13:23] LABS: BUN/Creatinine Ratio 4.4 (10.0-20.0); Blood Urea Nitrogen 37 mg/dL (9-23); Glucose 74 mg/dL (74-106)
[2024-10-25 13:25] LABS: Hematocrit 27.6 % (36.0-46.0); Hemoglobin 9.3 g/dL (12.2-16.2); Mean Corpuscular Hemoglobin 31.6 pg (28.0-32.0); Mean Corpuscular Hgb Conc. 33.6 g/dL (32.0-36.0); Mean Corpuscular Volume 94.1 fL (80.0-100.0); Platelet Count (auto) 228 10^3/uL (140-450); Red Blood Cells 2.94 10^6/uL (4.0-5.20); Red Cell Distribution Width 19.7 % (11.8-14.3); White Blood Cell 9.9 10^3/uL (4.4-10.8)
[2024-10-25 13:29] LABS: Band Neutrophils % (manual) 0; Basophils % (manual) 0 (0.0-2.0); Eosinophils % (manual) 0 (0-7); Metamyelocytes % 0; Myelocytes % 0; Promyelocytes % 0; Reactive Lymphocytes 0
[2024-10-25] MEDS: SODIUM CHL 0.9% 1000 ML BAG XX ONE (14:00)
[2024-10-25 14:07] LABS: Blast Cells 1; Lymphocytes % (manual) 9 (10.0-50.0); Monocytes % (manual) 7 (0-12); Platelet Estimate Adequate; Smudge Cells 2 /100 WBC
--- NOTE | 2024-10-25 14:25 | DVHPN2 ---
Progress Note - Dictate Date Seen: Oct 25, 2024 Has the PT tested + for MRSA If YES, has PT been informed?: No Medical Necessity Reason Pt with a Central, PICC or Fol: No The following are medically ne: Central Line, Ivey Catheter Reason for ivey catheter: Strict I&O Subjective No acute events overnight, patient remains intubated. vital signs Vital Sign Date Time Temp Pulse Resp B/P (MAP) Pulse Ox O2 Delivery O2 Flow Rate FiO2 10/25/24 13:43 68 14 163/81 (108) 100 30 10/25/24 06:00 Mechanical Ventilator+ 10/25/24 04:00 97.7 97.7 Total Intake and Output 10/24/24 10/24/24 10/25/24 15:00 23:00 07:00 Intake Total 260.650 ml 794.385 ml 416.11 ml Output Total 0 ml 2 ml Balance 260.650 ml 794.385 ml 414.11 ml medications Current Medications Medications Dose Ordered Sig/Maru Route Start Time Stop Time Status Last Admin Dose Admin Patient Own Medication 1 tab DAILY PO 10/18/24 10:00 UNV Sodium Chloride 10 ml Q8HR IV 10/18/24 14:00 10/25/24 06:15 10 ML Docusate Sodium 100 mg BIDPRN PRN PO 10/18/24 07:30 Acetaminophen 650 mg Q6HP PRN PO 10/18/24 07:30 Nitroglycerin 0.4 mg Q5MINP PRN SL 10/18/24 07:30 Morphine Sulfate 2 mg Q30M PRN IV 10/18/24 07:30 Ipratropium [place] 0.5 mg Q4HPRN PRN NEB 10/18/24 07:30 Albuterol 2.5 mg Q4HPRN PRN NEB 10/18/24 07:30 Levetiracetam 100 ml @ 400 mls/hr BID IV 10/18/24 10:00 10/25/24 10:52 400 MLS/HR Lorazepam 1 mg Q5MINP PRN IV 10/18/24 21:00 10/19/24 11:31 1 MG Enteral Nutritional Formula 1,000 ml 30ML/HR GT 10/20/24 10:15 10/22/24 04:51 1,000 ML Norepinephrine Bitartrate 250 ml @ 3.75 mls/hr Q24H IV 10/20/24 12:15 UNV Norepinephrine Bitartrate 250 ml @ 3.75 mls/hr Q24H IV 10/20/24 12:15 UNV Piperacillin Sod/ Tazobactam Sod 50 ml @ 12.5 mls/hr Q8HR IV 10/20/24 22:00 10/25/24 06:15 12.5 MLS/HR Pantoprazole Sodium 40 mg DAILY IV 10/21/24 10:00 10/25/24 10:07 40 MG Propofol 100 ml @ 1.77 mls/hr Q24H IV 10/20/24 12:45 10/25/24 10:07 7.08 MLS/HR Midazolam HCl 50 ml @ 1 mls/hr Q24H IV 10/20/24 12:45 Fentanyl Citrate 250 ml @ 2.5 mls/hr Q24H IV 10/20/24 12:45 10/21/24 22:56 7.5 MLS/HR Diagnostic Test (Pha) 1 strip ACHS 10/20/24 22:00 10/25/24 07:04 1 STRIP Insulin Human Regular ACHS SC 10/20/24 22:00 Dextrose 50 ml UD PRN IV 10/20/24 21:45 Vancomycin HCl 0 ml @ 0 mls/hr UD IV 10/21/24 12:00 Phenytoin Sodium 100 mg Q8HR IV 10/22/24 14:00 10/25/24 06:15 100 MG Nicardipine/ Sodium Chloride 200 ml @ 50 mls/hr Q4H IV 10/23/24 14:00 10/25/24 04:20 25 MLS/HR Metoprolol Tartrate 50 mg BID PO 10/24/24 12:15 10/25/24 10:34 50 MG objective HEENT: ET tube in place Pulmonary: Diminished lung sounds on auscultation bilaterally Cardiovascular S1-S2, no S3 or S4 Abdomen: Bowel sounds positive, soft no rebound tenderness Skin: No rash Neurological: Sedate Right forearm AV fistula laboratory and microbiology Laboratory Tests 10/25/24 12:47 Test 10/25/24 12:47 Range/Units Serum Glucose 74 74-106 mg/dL Assessment/Plan Assessment: 1. ESRD 2. CHF, currently she is euvolemic 3. Hypertension 4. Seizure disorder 5. Severe pulmonary hypertension 6. COPD with exacerbation with superimposed pneumonia 7. Anemia of CKD 8. Metabolic encephalopathy Plan: HD to continue Friday IV antibiotics for pneumonia cardiology for management of pulmonary HTN Went off mechanical ventilation when possible Bennie as needed for goal hemoglobin 10-11 g per dL Dietary Evaluation Review Comments: 1) Pro-stat 1 pk BID 2) Nephro-karl 1 tab daily 3) TF Nepro Carb Steady @ 25ml/hr along with current rate of propofol. TF @ goal volume along with Pro-stat & propofol provides 1381 kcal (100% energy needs) & 79gm protein (100% protein needs) Expected Outcomes/Goals: To meet >75% estimated needs Fu 2-3 days Plan discussed with: Patient SHAMAR ORELLANA MD Oct 25, 2024 14:25
--- NOTE | 2024-10-25 14:29 | DVHPN2 ---
Progress Note Date Seen: Oct 25, 2024 Has the PT tested + for MRSA If YES, has PT been informed?: No Medical Necessity Reason Pt with a Central, PICC or Fol: No The following are medically ne: Central Line, Ivey Catheter Reason for ivey catheter: Strict I&O Subjective Patient reports: No new complaints Review of Systems: HEENT:Normal, CVS:Normal, RESPIRATORY:Normal, GI:Normal, :Normal, MSK:Normal, NEURO:Normal Objective vital signs Vital Sign Date Time Temp Pulse Resp B/P (MAP) Pulse Ox O2 Delivery O2 Flow Rate FiO2 10/25/24 13:43 68 14 163/81 (108) 100 30 10/25/24 06:00 Mechanical Ventilator+ 10/25/24 04:00 97.7 97.7 Total Intake and Output 10/24/24 10/24/24 10/25/24 15:00 23:00 07:00 Intake Total 260.650 ml 794.385 ml 416.11 ml Output Total 0 ml 2 ml Balance 260.650 ml 794.385 ml 414.11 ml medications Current Medications Medications Dose Ordered Sig/Maru Route Start Time Stop Time Status Last Admin Dose Admin Patient Own Medication 1 tab DAILY PO 10/18/24 10:00 UNV Sodium Chloride 10 ml Q8HR IV 10/18/24 14:00 10/25/24 06:15 10 ML Docusate Sodium 100 mg BIDPRN PRN PO 10/18/24 07:30 Acetaminophen 650 mg Q6HP PRN PO 10/18/24 07:30 Nitroglycerin 0.4 mg Q5MINP PRN SL 10/18/24 07:30 Morphine Sulfate 2 mg Q30M PRN IV 10/18/24 07:30 Ipratropium [place] 0.5 mg Q4HPRN PRN NEB 10/18/24 07:30 Albuterol 2.5 mg Q4HPRN PRN NEB 10/18/24 07:30 Levetiracetam 100 ml @ 400 mls/hr BID IV 10/18/24 10:00 10/25/24 10:52 400 MLS/HR Lorazepam 1 mg Q5MINP PRN IV 10/18/24 21:00 10/19/24 11:31 1 MG Enteral Nutritional Formula 1,000 ml 30ML/HR GT 10/20/24 10:15 10/22/24 04:51 1,000 ML Norepinephrine Bitartrate 250 ml @ 3.75 mls/hr Q24H IV 10/20/24 12:15 UNV Norepinephrine Bitartrate 250 ml @ 3.75 mls/hr Q24H IV 10/20/24 12:15 UNV Piperacillin Sod/ Tazobactam Sod 50 ml @ 12.5 mls/hr Q8HR IV 10/20/24 22:00 10/25/24 06:15 12.5 MLS/HR Pantoprazole Sodium 40 mg DAILY IV 10/21/24 10:00 10/25/24 10:07 40 MG Propofol 100 ml @ 1.77 mls/hr Q24H IV 10/20/24 12:45 10/25/24 10:07 7.08 MLS/HR Midazolam HCl 50 ml @ 1 mls/hr Q24H IV 10/20/24 12:45 Fentanyl Citrate 250 ml @ 2.5 mls/hr Q24H IV 10/20/24 12:45 10/21/24 22:56 7.5 MLS/HR Diagnostic Test (Pha) 1 strip ACHS 10/20/24 22:00 10/25/24 07:04 1 STRIP Insulin Human Regular ACHS SC 10/20/24 22:00 Dextrose 50 ml UD PRN IV 10/20/24 21:45 Vancomycin HCl 0 ml @ 0 mls/hr UD IV 10/21/24 12:00 Phenytoin Sodium 100 mg Q8HR IV 10/22/24 14:00 10/25/24 06:15 100 MG Nicardipine/ Sodium Chloride 200 ml @ 50 mls/hr Q4H IV 10/23/24 14:00 10/25/24 04:20 25 MLS/HR Metoprolol Tartrate 50 mg BID PO 10/24/24 12:15 10/25/24 10:34 50 MG Hydralazine HCl 25 mg Q8HR PO 10/25/24 22:00 UNV Examination: GENERAL:Normal, HEENT:Normal, NECK:Normal, LUNGS:Normal, LUNGS:Abnormal (intubated), CVS:Normal, ABDOMEN:Normal, MSK:Normal, SKIN:Normal, NEURO:Normal, :Normal laboratory and microbiology Laboratory Tests 10/25/24 12:47 Test 10/25/24 12:47 Range/Units Serum Glucose 74 74-106 mg/dL Microbiology Date/Time Source Procedure Growth Status 10/21/24 18:37 Blood Blood Culture - Preliminary NO GROWTH AFTER 72 HOURS OF INCUBATION. Resulted 10/20/24 15:00 Nose MRSA Screen - Final Complete 10/20/24 12:42 Sputum Gram Stain - Final Complete 10/20/24 12:42 Respiratory Culture - Final Klebsiella pneumoniae Citrobacter species Complete Problem List/Assessment/Plan Problem List/Assessment/Plan * Hypertensive emergency: off nicardipine drip, adjust meds * Sokqp-[id number]-[id number] diastolic heart failure: dialysis * Seizure disorder: neuro eval, on keppra, dilantin-check level * Severe pulmonary hypertension. * Severe tricuspid regurgitation. * COPD with exacerbation. * End-stage renal disease, on hemodialysis. * Chronic anemia. * Moderate protein malnutrition: tube feedings * Acute respiratory failure: on acv * pneumonia with shock /mmkpri-uiqg-oc vanc, zosyn, cultures- gram positive/neg, on pressors * encephalopathy ? metabolic ?post ictal long dw sisters-explained plan of care advance care planning- full code- time spent 19 mins Plan discussed with: Other (rn) My Orders My Orders Orders - BRANDIE SPENCE MD Procedure Category Date Status Time Hydralazine Hcl PHA 10/25/24 Logged Tablet (Apresoline 14:30 Hydralazine Hcl PHA 10/25/24 Logged Tablet (Apresoline 22:00 Complete Blood Count LAB 10/26/24 Verified 06:00 Comprehensive LAB 10/26/24 Verified Metabolic Panel 06:00 Chest Portable XY 10/26/24 Logged 06:00 Abg W/ Co-Ox RT 10/26/24 Logged 06:00 Cpap Trial For Am ORDERS 10/25/24 Transmitted 14:23 Phenytoin (Dilantin) LAB 10/26/24 Verified 05:00 Dietary Evaluation Review Comments: 1) Pro-stat 1 pk BID 2) Nephro-karl 1 tab daily 3) TF Nepro Carb Steady @ 25ml/hr along with current rate of propofol. TF @ goal volume along with Pro-stat & propofol provides 1381 kcal (100% energy needs) & 79gm protein (100% protein needs) Expected Outcomes/Goals: To meet >75% estimated needs Fu 2-3 days Critical Care Time (mins): 48 Date of Service: Oct 25, 2024 Billing Provider: BRANDIE SPENCE MD Common Visit Codes: [id number] CARE 30-74 MIN BRANDIE SPENCE MD Oct 25, 2024 14:29
[2024-10-25] MEDS: hydrALAZINE HCL 25 MG TAB PO ONE (18:13)
[2024-10-25] MEDS: EPOETIN ALFA-EPBX 10,000 UNIT/1ML VIAL SC ONE (22:51)
[2024-10-25] MEDS: ONDANSETRON HCL 4 MG/2 ML VIAL IV PRN (23:14)
[2024-10-25] MEDS: hydrALAZINE HCL 25 MG TAB PO SCH (23:15)
[2024-10-26] VITALS (108 sets, daily range): BP systolic 99–186; BP diastolic 56–102; PULSE 59–76; RESP 11–29; TEMP 96.6–99.9; O2SAT 91–100
--- NOTE | 2024-10-26 05:34 | DVH ---
EXAM: XR Chest, 1 View CLINICAL INDICATION: Pain TECHNIQUE: Frontal view of the chest. COMPARISON: XR Chest dated 10/25/2024 FINDINGS: LUNGS AND PLEURAL SPACES: See below. HEART: Cardiomegaly with mild congestion. MEDIASTINUM: Unremarkable. Normal mediastinal contour. BONES/JOINTS: Unremarkable. No acute fracture. TUBES, LINES AND DEVICES: The endotracheal tube (ETT) is in satisfactory position. Enteric tube tip in the stomach. IMPRESSION: Cardiomegaly with mild congestion.
[2024-10-26 05:44] LABS: Basophils # (auto) 0.1 10 ^3/uL (0-0.2); Basophils % (auto) 0.4 % (0.0-2.0); Eosinophils # (auto) 0.9 10 ^3/uL (0-0.8); Eosinophils % (auto) 6.7 % (0.0-7.0); Hematocrit 28.9 % (36.0-46.0); Hemoglobin 9.7 g/dL (12.2-16.2); Lymphocytes # (auto) 1.4 10 ^3/uL (0.4-5.4); Lymphocytes % (auto) 9.8 % (10.0-50.0); Mean Corpuscular Hemoglobin 31.4 pg (28.0-32.0); Mean Corpuscular Hgb Conc. 33.5 g/dL (32.0-36.0); Mean Corpuscular Volume 93.8 fL (80.0-100.0); Monocytes # (auto) 1.6 10 ^3/uL (0-1.3); Monocytes % (auto) 11.3 % (0.0-12.0); Neutrophils # (auto) 9.9 10 ^3/uL (1.6-8.6); Neutrophils % (auto) 71.8 % (37.0-80.0); Nucleated Red Blood Cells % 0.8 %; Platelet Count (auto) 234 10^3/uL (140-450); Red Blood Cells 3.08 10^6/uL (4.0-5.20); Red Cell Distribution Width 20.2 % (11.8-14.3); White Blood Cell 13.8 10^3/uL (4.4-10.8)
[2024-10-26 06:06] LABS: Alkaline Phosphatase 98 U/L (46-116); Anion Gap 14 (5-15); BUN/Creatinine Ratio 3.3 (10.0-20.0); Blood Urea Nitrogen 16 mg/dL (9-23); Calcium 10.1 mg/dL (8.7-10.4); Carbon Dioxide 27 mmol/L (20-31); Chloride 101 mmol/L (98-107); Glucose 91 mg/dL (74-106); Sodium 142 mmol/L (136-145); Total Protein 7.7 g/dL (5.7-8.2)
[2024-10-26 06:07] LABS: Bilirubin, Total 0.3 mg/dL (0.2-1.0)
[2024-10-26 06:08] LABS: Alanine Aminotransferase 43 U/L (7-40); Albumin 3.1 g/dL (3.2-4.8); Aspartate Aminotransferase 38 U/L (<34); Potassium 3.2 mmol/L (3.5-5.1)
[2024-10-26 06:48] LABS: % Iron Saturation 26.4 % (15-50)
[2024-10-26 07:17] LABS: Base Excess 3.1 mmol/L (-2.0-3.0)
--- NOTE | 2024-10-26 10:39 | DVHPN2 ---
Progress Note - Dictate Date Seen: Oct 26, 2024 Has the PT tested + for MRSA If YES, has PT been informed?: No Medical Necessity Reason Pt with a Central, PICC or Fol: No The following are medically ne: Central Line, Ivey Catheter Reason for ivey catheter: Strict I&O Subjective Ms. Wright is a 68 years old female with a history of hypertension, end-stage renal failure on hemodialysis, seizure disorder, goes she was brought to the [facility] on 10/18/2024 with a chief complaint of SOB, ALOC. I saw her on 09/13/2024 for encephalopathy I have seen and examined the patient, I have talked to her nurse, she is intubated, sedated, but she is awake, she does not follow verbal commands She developed respiratory distress and was intubated on 10/21/2024 Phenytoin, 09/13/2024: 4.9, 10/22/24: 11.3 (albumin: 2.9), 10/24/2024: 13.6, 10/26/2024: 17.2 (alb: 3.1) WBC/HB/PLT/MCV, 09/12/2024: 4/9.9/160/86.7, 10/18/2024: 7.4/9.2/304/93.6 BUN/CR, 09/12/2024: 28/6.37, 10/18/2024: 29/7.25, 10/19/2024: 35/8.25 GFR, 10/19/2024: 5 TBI/AST/ALT/AP, 09/12/2024: 0.6/67/30/143 Lactic acid, 10/18/24: 1 TSH, 09/13/2024: 2.01 EEG, 09/14/24: A moderately abnormal EEG Chest x-ray, 09/11/2024: 1. Moderately severe cardiomegaly 2. Moderate bilateral interstitial changes CT head, 09/12/2024: 1. No acute intracranial hemorrhage 2. No CT findings of territorial ischemia CT head, 10/18/2024: 1. Generalized brain atrophy. 2. Small vessel ischemic/degenerative changes. 3. No acute intracranial hemorrhage, midline shift or mass effect. If symptoms persist, further evaluation with MRI is recommended. MRI head, 09/19/2024: No acute infarct, intracranial hemorrhage, mass effect, or hydrocephalus MRI head, 10/18/2024: No evidence of acute infarction, intracranial hemorrhage, mass effect or hydrocephalus. Moderate changes of chronic microvascular ischemic disease. vital signs Vital Sign Date Time Temp Pulse Resp B/P (MAP) Pulse Ox O2 Delivery O2 Flow Rate FiO2 10/26/24 10:08 73 14 136/68 (90) 100 30 10/26/24 08:00 Mechanical Ventilator+ 10/26/24 06:45 99.1 210.4 Total Intake and Output 10/25/24 10/25/24 10/26/24 15:00 23:00 07:00 Intake Total 161.95 ml 358.71 ml 349.96 ml Output Total 0 ml 0 ml 0 ml Balance 161.95 ml 358.71 ml 349.96 ml medications Current Medications Medications Dose Ordered Sig/Maru Route Start Time Stop Time Status Last Admin Dose Admin Patient Own Medication 1 tab DAILY PO 10/18/24 10:00 UNV Sodium Chloride 10 ml Q8HR IV 10/18/24 14:00 10/26/24 05:53 10 ML Docusate Sodium 100 mg BIDPRN PRN PO 10/18/24 07:30 Acetaminophen 650 mg Q6HP PRN PO 10/18/24 07:30 Nitroglycerin 0.4 mg Q5MINP PRN SL 10/18/24 07:30 Morphine Sulfate 2 mg Q30M PRN IV 10/18/24 07:30 Ipratropium [place] 0.5 mg Q4HPRN PRN NEB 10/18/24 07:30 Albuterol 2.5 mg Q4HPRN PRN NEB 10/18/24 07:30 Levetiracetam 100 ml @ 400 mls/hr BID IV 10/18/24 10:00 10/25/24 21:47 400 MLS/HR Lorazepam 1 mg Q5MINP PRN IV 10/18/24 21:00 10/19/24 11:31 1 MG Enteral Nutritional Formula 1,000 ml 30ML/HR GT 10/20/24 10:15 10/22/24 04:51 1,000 ML Norepinephrine Bitartrate 250 ml @ 3.75 mls/hr Q24H IV 10/20/24 12:15 UNV Norepinephrine Bitartrate 250 ml @ 3.75 mls/hr Q24H IV 10/20/24 12:15 UNV Piperacillin Sod/ Tazobactam Sod 50 ml @ 12.5 mls/hr Q8HR IV 10/20/24 22:00 10/26/24 05:46 12.5 MLS/HR Pantoprazole Sodium 40 mg DAILY IV 10/21/24 10:00 10/25/24 10:07 40 MG Propofol 100 ml @ 1.77 mls/hr Q24H IV 10/20/24 12:45 10/26/24 01:39 12.39 MLS/HR Midazolam HCl 50 ml @ 1 mls/hr Q24H IV 10/20/24 12:45 Fentanyl Citrate 250 ml @ 2.5 mls/hr Q24H IV 10/20/24 12:45 10/21/24 22:56 7.5 MLS/HR Diagnostic Test (Pha) 1 strip ACHS 10/20/24 22:00 10/26/24 06:01 1 STRIP Insulin Human Regular ACHS SC 10/20/24 22:00 Dextrose 50 ml UD PRN IV 10/20/24 21:45 Vancomycin HCl 0 ml @ 0 mls/hr UD IV 10/21/24 12:00 Phenytoin Sodium 100 mg Q8HR IV 10/22/24 14:00 10/26/24 06:11 100 MG Nicardipine/ Sodium Chloride 200 ml @ 50 mls/hr Q4H IV 10/23/24 14:00 10/25/24 20:19 25 MLS/HR Metoprolol Tartrate 50 mg BID PO 10/24/24 12:15 10/25/24 21:47 50 MG Hydralazine HCl 25 mg Q8HR PO 10/25/24 22:00 10/26/24 05:53 25 MG Ondansetron HCl 4 mg Q6HPRN PRN IV 10/25/24 23:15 10/25/24 23:14 4 MG objective The patient is well-nourished and well-developed with no distress. The patient is intubated MENTAL STATUS: Subjective CRANIAL NERVES: Pupils are equal, round and reactive.There are corneal reflexes and doll's eyes phenomenon. No signs of facial weakness. There are gagging or coughing reflexes SENSATION: Responsive to touch MOTOR: Normal tone in the upper and lower extremity. Normal muscle bulk. No fasciculations. No spontaneous movement. REFLEXES: Deep tendon reflexes are symmetrical. No pathological reflexes. CEREBELLAR/COORDINATION: Deferred GAIT/STATION: deferred. laboratory and microbiology Laboratory Tests 10/26/24 05:01 Test 10/26/24 05:01 Range/Units Serum Glucose 91 74-106 mg/dL Problem List Acute respiratory failure Altered mental status Metabolic encephalopathy Hypoxic encephalopathy ? Seizure activity on 10/19/24 Visual hallucination secondary to metabolic encephalopathy Seizure disorder, according to description she has Grand mal seizure Partial complex seizure End-stage renal failure on hemodialysis Assessment/Plan Monitoring Supportive treatment EEG ICU care Stabilize vitals Respiratory support/vent management Dilantin 100 mg IV Tid. Keppra 500 mg IV b.i.d. (ESRF) Ativan for seizure breakthrough Nephrology Re: Kidney failure DVT prophylaxis Consider CPAP trial More recommendation per clinical course This medical document was created using an electronic medical record system with [employer] dictation system. Although this document has been carefully reviewed, there may still be some phonetic and typographical errors. These areas are purely typographical due to imperfections of the software programs, and do not reflect any compromise in the patient's medical care Prognosis guarded Dietary Evaluation Review Comments: 1) Pro-stat 1 pk BID 2) Nephro-karl 1 tab daily 3) TF Nepro Carb Steady @ 25ml/hr along with current rate of propofol. TF @ goal volume along with Pro-stat & propofol provides 1381 kcal (100% energy needs) & 79gm protein (100% protein needs) Expected Outcomes/Goals: To meet >75% estimated needs Fu 2-3 days Plan discussed with: Other KIT GRISSOM MD Oct 26, 2024 10:39
--- NOTE | 2024-10-26 11:52 | DVHPN2 ---
Progress Note Date Seen: Oct 26, 2024 Has the PT tested + for MRSA If YES, has PT been informed?: No Medical Necessity Reason Pt with a Central, PICC or Fol: No The following are medically ne: Central Line, Ivey Catheter Reason for ivey catheter: Strict I&O Subjective Patient reports: No new complaints Review of Systems: HEENT:Normal, CVS:Normal, RESPIRATORY:Normal, GI:Normal, :Normal, MSK:Normal, NEURO:Normal Objective vital signs Vital Sign Date Time Temp Pulse Resp B/P (MAP) Pulse Ox O2 Delivery O2 Flow Rate FiO2 10/26/24 10:42 72 127/64 10/26/24 10:08 14 100 30 10/26/24 08:00 Mechanical Ventilator+ 10/26/24 06:45 99.1 210.4 Total Intake and Output 10/25/24 10/25/24 10/26/24 15:00 23:00 07:00 Intake Total 161.95 ml 358.71 ml 349.96 ml Output Total 0 ml 0 ml 0 ml Balance 161.95 ml 358.71 ml 349.96 ml medications Current Medications Medications Dose Ordered Sig/Maru Route Start Time Stop Time Status Last Admin Dose Admin Patient Own Medication 1 tab DAILY PO 10/18/24 10:00 UNV Sodium Chloride 10 ml Q8HR IV 10/18/24 14:00 10/26/24 05:53 10 ML Docusate Sodium 100 mg BIDPRN PRN PO 10/18/24 07:30 Acetaminophen 650 mg Q6HP PRN PO 10/18/24 07:30 Nitroglycerin 0.4 mg Q5MINP PRN SL 10/18/24 07:30 Morphine Sulfate 2 mg Q30M PRN IV 10/18/24 07:30 Ipratropium [place] 0.5 mg Q4HPRN PRN NEB 10/18/24 07:30 Albuterol 2.5 mg Q4HPRN PRN NEB 10/18/24 07:30 Levetiracetam 100 ml @ 400 mls/hr BID IV 10/18/24 10:00 10/26/24 10:41 400 MLS/HR Lorazepam 1 mg Q5MINP PRN IV 10/18/24 21:00 10/19/24 11:31 1 MG Enteral Nutritional Formula 1,000 ml 30ML/HR GT 10/20/24 10:15 10/22/24 04:51 1,000 ML Norepinephrine Bitartrate 250 ml @ 3.75 mls/hr Q24H IV 10/20/24 12:15 UNV Norepinephrine Bitartrate 250 ml @ 3.75 mls/hr Q24H IV 10/20/24 12:15 UNV Piperacillin Sod/ Tazobactam Sod 50 ml @ 12.5 mls/hr Q8HR IV 10/20/24 22:00 10/26/24 05:46 12.5 MLS/HR Pantoprazole Sodium 40 mg DAILY IV 10/21/24 10:00 10/26/24 10:41 40 MG Propofol 100 ml @ 1.77 mls/hr Q24H IV 10/20/24 12:45 10/26/24 01:39 12.39 MLS/HR Midazolam HCl 50 ml @ 1 mls/hr Q24H IV 10/20/24 12:45 Fentanyl Citrate 250 ml @ 2.5 mls/hr Q24H IV 10/20/24 12:45 10/21/24 22:56 7.5 MLS/HR Diagnostic Test (Pha) 1 strip ACHS 10/20/24 22:00 10/26/24 06:01 1 STRIP Insulin Human Regular ACHS SC 10/20/24 22:00 Dextrose 50 ml UD PRN IV 10/20/24 21:45 Vancomycin HCl 0 ml @ 0 mls/hr UD IV 10/21/24 12:00 Phenytoin Sodium 100 mg Q8HR IV 10/22/24 14:00 10/26/24 06:11 100 MG Nicardipine/ Sodium Chloride 200 ml @ 50 mls/hr Q4H IV 10/23/24 14:00 10/25/24 20:19 25 MLS/HR Metoprolol Tartrate 50 mg BID PO 10/24/24 12:15 10/26/24 10:42 50 MG Hydralazine HCl 25 mg Q8HR PO 10/25/24 22:00 10/26/24 05:53 25 MG Ondansetron HCl 4 mg Q6HPRN PRN IV 10/25/24 23:15 10/25/24 23:14 4 MG Examination: GENERAL:Normal, HEENT:Normal, NECK:Normal, LUNGS:Normal, LUNGS:Abnormal (intubated), CVS:Normal, ABDOMEN:Normal, MSK:Normal, SKIN:Normal, NEURO:Normal, :Normal laboratory and microbiology Laboratory Tests 10/26/24 05:01 Test 10/26/24 05:01 Range/Units Serum Glucose 91 74-106 mg/dL Microbiology Date/Time Source Procedure Growth Status 10/21/24 18:37 Blood Blood Culture - Preliminary NO GROWTH AFTER 72 HOURS OF INCUBATION. Resulted 10/20/24 15:00 Nose MRSA Screen - Final Complete 10/20/24 12:42 Sputum Gram Stain - Final Complete 10/20/24 12:42 Respiratory Culture - Final Klebsiella pneumoniae Citrobacter species Complete Problem List/Assessment/Plan Problem List/Assessment/Plan * Hypertensive emergency: off nicardipine drip, adjust meds * Fofxp-gj-nhcuqes diastolic heart failure: dialysis * Seizure disorder: neuro eval, on keppra, dilantin-check level * Severe pulmonary hypertension. * Severe tricuspid regurgitation. * COPD with exacerbation. * End-stage renal disease, on hemodialysis. * Chronic anemia. * Moderate protein malnutrition: tube feedings * Acute respiratory failure: on acv, cpap in am * pneumonia with shock /zuwosr-jain-ym vanc, zosyn, cultures- gram positive/neg, on pressors * encephalopathy ? metabolic ?post ictal long dw sisters-explained plan of care advance care planning- full code- time spent 19 mins Plan discussed with: Other (sister Nurys) My Orders My Orders Orders - BRANDIE SPENCE MD Procedure Category Date Status Time Hydralazine Hcl PHA 10/25/24 In Process Tablet (Apresoline 22:00 Chest Portable XY 10/26/24 Resulted 06:00 Abg W/ Co-Ox RT 10/26/24 Logged 06:00 Cpap Trial For Am ORDERS 10/25/24 Transmitted 14:23 Creatinine LAB 10/27/24 Verified 04:00 Vancomycin,Random LAB 10/27/24 Verified 04:00 Abg W/ Co-Ox RT 10/26/24 Logged 06:00 Dietary Evaluation Review Comments: 1) Pro-stat 1 pk BID 2) Nephro-karl 1 tab daily 3) TF Nepro Carb Steady @ 25ml/hr along with current rate of propofol. TF @ goal volume along with Pro-stat & propofol provides 1381 kcal (100% energy needs) & 79gm protein (100% protein needs) Expected Outcomes/Goals: To meet >75% estimated needs Fu 2-3 days Critical Care Time (mins): 49 (critical care time excluding procedures is 49 mins) Date of Service: Oct 26, 2024 Billing Provider: BRANDIE SPENCE MD Common Visit Codes: [id number] CARE 30-74 MIN BRANDIE SPENCE MD Oct 26, 2024 11:52
[2024-10-26] MEDS ORDERED: POTASSIUM CHL 20MEQ/100ML 100 ML IV SCH ×2 (12:15→13:00)
[2024-10-26] MEDS: SODIUM CHL 0.9% 1000 ML BAG XX ONE (16:00)
--- NOTE | 2024-10-26 16:17 | DVHPN2 ---
Progress Note - Dictate Date Seen: Oct 26, 2024 Has the PT tested + for MRSA If YES, has PT been informed?: No Medical Necessity Reason Pt with a Central, PICC or Fol: No The following are medically ne: Central Line, Ivey Catheter Reason for ivey catheter: Strict I&O Subjective No acute events overnight, patient remains intubated. vital signs Vital Sign Date Time Temp Pulse Resp B/P (MAP) Pulse Ox O2 Delivery O2 Flow Rate FiO2 10/26/24 15:35 66 14 115/65 (82) 100 30 10/26/24 14:30 98.1 208.6 10/26/24 14:00 Mechanical Ventilator+ Total Intake and Output 10/25/24 10/25/24 10/26/24 15:00 23:00 07:00 Intake Total 161.95 ml 358.71 ml 371.31 ml Output Total 0 ml 0 ml 0 ml Balance 161.95 ml 358.71 ml 371.31 ml medications Current Medications Medications Dose Ordered Sig/Maru Route Start Time Stop Time Status Last Admin Dose Admin Patient Own Medication 1 tab DAILY PO 10/18/24 10:00 UNV Sodium Chloride 10 ml Q8HR IV 10/18/24 14:00 10/26/24 14:48 10 ML Docusate Sodium 100 mg BIDPRN PRN PO 10/18/24 07:30 Acetaminophen 650 mg Q6HP PRN PO 10/18/24 07:30 Nitroglycerin 0.4 mg Q5MINP PRN SL 10/18/24 07:30 Morphine Sulfate 2 mg Q30M PRN IV 10/18/24 07:30 Ipratropium [place] 0.5 mg Q4HPRN PRN NEB 10/18/24 07:30 Albuterol 2.5 mg Q4HPRN PRN NEB 10/18/24 07:30 Levetiracetam 100 ml @ 400 mls/hr BID IV 10/18/24 10:00 10/26/24 10:41 400 MLS/HR Lorazepam 1 mg Q5MINP PRN IV 10/18/24 21:00 10/19/24 11:31 1 MG Enteral Nutritional Formula 1,000 ml 30ML/HR GT 10/20/24 10:15 10/22/24 04:51 1,000 ML Norepinephrine Bitartrate 250 ml @ 3.75 mls/hr Q24H IV 10/20/24 12:15 UNV Norepinephrine Bitartrate 250 ml @ 3.75 mls/hr Q24H IV 10/20/24 12:15 UNV Piperacillin Sod/ Tazobactam Sod 50 ml @ 12.5 mls/hr Q8HR IV 10/20/24 22:00 10/26/24 16:05 12.5 MLS/HR Pantoprazole Sodium 40 mg DAILY IV 10/21/24 10:00 10/26/24 10:41 40 MG Propofol 100 ml @ 1.77 mls/hr Q24H IV 10/20/24 12:45 10/26/24 12:47 10.62 MLS/HR Midazolam HCl 50 ml @ 1 mls/hr Q24H IV 10/20/24 12:45 Fentanyl Citrate 250 ml @ 2.5 mls/hr Q24H IV 10/20/24 12:45 10/21/24 22:56 7.5 MLS/HR Diagnostic Test (Pha) 1 strip ACHS 10/20/24 22:00 10/26/24 14:48 1 STRIP Insulin Human Regular ACHS SC 10/20/24 22:00 Dextrose 50 ml UD PRN IV 10/20/24 21:45 Vancomycin HCl 0 ml @ 0 mls/hr UD IV 10/21/24 12:00 Phenytoin Sodium 100 mg Q8HR IV 10/22/24 14:00 10/26/24 16:06 100 MG Nicardipine/ Sodium Chloride 200 ml @ 50 mls/hr Q4H IV 10/23/24 14:00 10/25/24 20:19 25 MLS/HR Metoprolol Tartrate 50 mg BID PO 10/24/24 12:15 10/26/24 10:42 50 MG Hydralazine HCl 25 mg Q8HR PO 10/25/24 22:00 10/26/24 05:53 25 MG Ondansetron HCl 4 mg Q6HPRN PRN IV 10/25/24 23:15 10/25/24 23:14 4 MG Potassium Chloride 100 ml @ 50 mls/hr Q2H IV 10/26/24 12:15 10/26/24 18:14 UNV objective HEENT: ET tube in place Pulmonary: Diminished lung sounds on auscultation bilaterally Cardiovascular S1-S2, no S3 or S4 Abdomen: Bowel sounds positive, soft no rebound tenderness Skin: No rash Neurological: Sedate Right forearm AV fistula laboratory and microbiology Laboratory Tests 10/26/24 05:01 Test 10/26/24 05:01 Range/Units Serum Glucose 91 74-106 mg/dL Assessment/Plan Assessment: 1. ESRD 2. CHF, currently she is euvolemic 3. Hypertension 4. Seizure disorder 5. Severe pulmonary hypertension 6. COPD with exacerbation with superimposed pneumonia 7. Anemia of CKD 8. Metabolic encephalopathy Plan: HD today, then TTS IV antibiotics for pneumonia cardiology for management of pulmonary HTN Went off mechanical ventilation when possible Bennie as needed for goal hemoglobin 10-11 g per dL Dietary Evaluation Review Comments: 1) Pro-stat 1 pk BID 2) Nephro-karl 1 tab daily 3) TF Nepro Carb Steady @ 25ml/hr along with current rate of propofol. TF @ goal volume along with Pro-stat & propofol provides 1381 kcal (100% energy needs) & 79gm protein (100% protein needs) Expected Outcomes/Goals: To meet >75% estimated needs Fu 2-3 days Plan discussed with: Patient SHAMAR ORELLANA MD Oct 26, 2024 16:17
[2024-10-27] VITALS (111 sets, daily range): BP systolic 106–179; BP diastolic 52–107; PULSE 62–83; RESP 11–29; TEMP 96.4–99.7; O2SAT 94–100
--- NOTE | 2024-10-27 05:29 | DVH ---
CHEST RADIOGRAPH Indication: resp failure Technique: Single frontal view of the chest was obtained COMPARISON: XY CHEST PORTABLE on DOS: 10/26/24, XY CHEST PORTABLE on DOS: 10/25/24, XY CHEST XRAY 1 VIE W on DOS: 10/23/24, XY CHEST PORTABLE on DOS: 10/22/24, XY CHEST PORTABLE on DOS: 10/22/24 FINDINGS: Lines and Tubes: Endotracheal tube and enteric catheter in satisfactory position. Lungs: Multifocal airspace disease, unchanged. Pleura: No effusion. No pneumothorax. Cardiomediastinal contours: Unremarkable Bones: Unremarkable IMPRESSION: Lines and tubes in satisfactory position. No significant interval change.
[2024-10-27 06:17] LABS: Hematocrit 29.5 % (36.0-46.0); Hemoglobin 9.9 g/dL (12.2-16.2); Mean Corpuscular Hemoglobin 31.1 pg (28.0-32.0); Mean Corpuscular Hgb Conc. 33.6 g/dL (32.0-36.0); Mean Corpuscular Volume 92.6 fL (80.0-100.0); Platelet Count (auto) 273 10^3/uL (140-450); Red Blood Cells 3.19 10^6/uL (4.0-5.20); Red Cell Distribution Width 19.8 % (11.8-14.3); White Blood Cell 10.6 10^3/uL (4.4-10.8)
[2024-10-27 06:25] LABS: Alanine Aminotransferase 35 U/L (7-40); Alkaline Phosphatase 101 U/L (46-116); Anion Gap 12 (5-15); BUN/Creatinine Ratio 3.3 (10.0-20.0); Blood Urea Nitrogen 13 mg/dL (9-23); Calcium 9.4 mg/dL (8.7-10.4); Carbon Dioxide 27 mmol/L (20-31); Chloride 98 mmol/L (98-107); Glucose 81 mg/dL (74-106); Magnesium 2.1 mg/dL (1.6-2.6); Potassium 3.5 mmol/L (3.5-5.1); Sodium 137 mmol/L (136-145); Total Protein 7.6 g/dL (5.7-8.2)
[2024-10-27 06:26] LABS: Aspartate Aminotransferase 37 U/L (<34); Bilirubin, Total 0.2 mg/dL (0.2-1.0)
[2024-10-27 06:28] LABS: Band Neutrophils % (manual) 0; Basophils % (manual) 0 (0.0-2.0); Blast Cells 0; Myelocytes % 0; Reactive Lymphocytes 0
[2024-10-27 06:47] LABS: Eosinophils % (manual) 17 (0-7); Lymphocytes % (manual) 20 (10.0-50.0); Metamyelocytes % 1; Monocytes % (manual) 15 (0-12); Platelet Estimate Adequate; Promyelocytes % 1
[2024-10-27 08:50] LABS: Base Excess 5.7 mmol/L (-2.0-3.0)
--- NOTE | 2024-10-27 10:27 | DVHPN2 ---
Progress Note - Dictate Date Seen: Oct 27, 2024 Has the PT tested + for MRSA If YES, has PT been informed?: No Medical Necessity Reason Pt with a Central, PICC or Fol: No The following are medically ne: Central Line, Ivey Catheter Reason for ivey catheter: Strict I&O Subjective Ms. Wright is a 68 years old female with a history of hypertension, end-stage renal failure on hemodialysis, seizure disorder, goes she was brought to the [facility] on 10/18/2024 with a chief complaint of SOB, ALOC. I saw her on 09/13/2024 for encephalopathy I have seen and examined the patient, I have talked to her nurse, she is intubated on CPAP, awake, she is more interactive, she follow commands Her sister are in the room with her She developed respiratory distress and was intubated on 10/21/2024 Phenytoin, 09/13/2024: 4.9, 10/22/24: 11.3 (albumin: 2.9), 10/24/2024: 13.6, 10/26/2024: 17.2 (alb: 3.1) WBC/HB/PLT/MCV, 09/12/2024: 4/9.9/160/86.7, 10/18/2024: 7.4/9.2/304/93.6 BUN/CR, 09/12/2024: 28/6.37, 10/18/2024: 29/7.25, 10/19/2024: 35/8.25 GFR, 10/19/2024: 5 TBI/AST/ALT/AP, 09/12/2024: 0.6/67/30/143 Lactic acid, 10/18/24: 1 TSH, 09/13/2024: 2.01 EEG, 09/14/24: A moderately abnormal EEG Chest x-ray, 09/11/2024: 1. Moderately severe cardiomegaly 2. Moderate bilateral interstitial changes CT head, 09/12/2024: 1. No acute intracranial hemorrhage 2. No CT findings of territorial ischemia CT head, 10/18/2024: 1. Generalized brain atrophy. 2. Small vessel ischemic/degenerative changes. 3. No acute intracranial hemorrhage, midline shift or mass effect. If symptoms persist, further evaluation with MRI is recommended. MRI head, 09/19/2024: No acute infarct, intracranial hemorrhage, mass effect, or hydrocephalus MRI head, 10/18/2024: No evidence of acute infarction, intracranial hemorrhage, mass effect or hydrocephalus. Moderate changes of chronic microvascular ischemic disease. vital signs Vital Sign Date Time Temp Pulse Resp B/P (MAP) Pulse Ox O2 Delivery O2 Flow Rate FiO2 10/27/24 10:14 113/53 10/27/24 10:14 74 25 98 30 10/27/24 09:30 99.0 210.2 10/27/24 08:00 Mechanical Ventilator+ Total Intake and Output 10/26/24 10/26/24 10/27/24 15:00 23:00 07:00 Intake Total 218.92 ml 536.42 ml 351.32 ml Output Total 0 ml Balance 218.92 ml 536.42 ml 351.32 ml medications Current Medications Medications Dose Ordered Sig/Maru Route Start Time Stop Time Status Last Admin Dose Admin Patient Own Medication 1 tab DAILY PO 10/18/24 10:00 UNV Sodium Chloride 10 ml Q8HR IV 10/18/24 14:00 10/27/24 05:40 10 ML Docusate Sodium 100 mg BIDPRN PRN PO 10/18/24 07:30 Acetaminophen 650 mg Q6HP PRN PO 10/18/24 07:30 Nitroglycerin 0.4 mg Q5MINP PRN SL 10/18/24 07:30 Morphine Sulfate 2 mg Q30M PRN IV 10/18/24 07:30 Ipratropium [place] 0.5 mg Q4HPRN PRN NEB 10/18/24 07:30 Albuterol 2.5 mg Q4HPRN PRN NEB 10/18/24 07:30 Levetiracetam 100 ml @ 400 mls/hr BID IV 10/18/24 10:00 10/27/24 10:08 400 MLS/HR Lorazepam 1 mg Q5MINP PRN IV 10/18/24 21:00 10/19/24 11:31 1 MG Enteral Nutritional Formula 1,000 ml 30ML/HR GT 10/20/24 10:15 10/22/24 04:51 1,000 ML Norepinephrine Bitartrate 250 ml @ 3.75 mls/hr Q24H IV 10/20/24 12:15 UNV Norepinephrine Bitartrate 250 ml @ 3.75 mls/hr Q24H IV 10/20/24 12:15 UNV Piperacillin Sod/ Tazobactam Sod 50 ml @ 12.5 mls/hr Q8HR IV 10/20/24 22:00 10/27/24 05:36 12.5 MLS/HR Pantoprazole Sodium 40 mg DAILY IV 10/21/24 10:00 10/27/24 10:08 40 MG Propofol 100 ml @ 1.77 mls/hr Q24H IV 10/20/24 12:45 10/26/24 19:32 10.62 MLS/HR Midazolam HCl 50 ml @ 1 mls/hr Q24H IV 10/20/24 12:45 Fentanyl Citrate 250 ml @ 2.5 mls/hr Q24H IV 10/20/24 12:45 10/21/24 22:56 7.5 MLS/HR Diagnostic Test (Pha) 1 strip ACHS 10/20/24 22:00 10/27/24 06:08 1 STRIP Insulin Human Regular ACHS SC 10/20/24 22:00 Dextrose 50 ml UD PRN IV 10/20/24 21:45 Vancomycin HCl 0 ml @ 0 mls/hr UD IV 10/21/24 12:00 Phenytoin Sodium 100 mg Q8HR IV 10/22/24 14:00 10/26/24 21:32 100 MG Nicardipine/ Sodium Chloride 200 ml @ 50 mls/hr Q4H IV 10/23/24 14:00 10/27/24 04:27 50 MLS/HR Metoprolol Tartrate 50 mg BID PO 10/24/24 12:15 10/26/24 21:51 50 MG Hydralazine HCl 25 mg Q8HR PO 10/25/24 22:00 10/27/24 05:35 25 MG Ondansetron HCl 4 mg Q6HPRN PRN IV 10/25/24 23:15 10/25/24 23:14 4 MG Potassium Chloride 100 ml @ 50 mls/hr Q2H IV 10/26/24 12:15 10/26/24 18:14 UNV objective The patient is well-nourished and well-developed with no distress. The patient is intubated MENTAL STATUS: Subjective CRANIAL NERVES: Pupils are equal round and reactive to light briskly, normal external eye movement, normal sensation and motor examination in the lateral trigeminal nerve distribution, no facial weakness. SENSATION: Okay to light touch and pinprick MOTOR: Normal tone in the upper and lower extremity. Normal muscle bulk. No fasciculations. She moves her arms. REFLEXES: Deep tendon reflexes are symmetrical. No pathological reflexes. CEREBELLAR/COORDINATION: Deferred GAIT/STATION: deferred. laboratory and microbiology Laboratory Tests 10/27/24 05:47 Test 10/27/24 05:47 Range/Units Serum Glucose 81 74-106 mg/dL Problem List Acute respiratory failure Altered mental status Metabolic encephalopathy Hypoxic encephalopathy ? Seizure activity on 10/19/24 Visual hallucination secondary to metabolic encephalopathy Seizure disorder, according to description she has Grand mal seizure Partial complex seizure End-stage renal failure on hemodialysis Assessment/Plan Monitoring Supportive treatment EEG ICU care Stabilize vitals Respiratory support/vent management Dilantin 100 mg IV Tid. Keppra 500 mg IV b.i.d. (ESRF) Ativan for seizure breakthrough Nephrology Re: Kidney failure DVT prophylaxis Consider extubation More recommendation per clinical course This medical document was created using an electronic medical record system with [employer] dictation system. Although this document has been carefully reviewed, there may still be some phonetic and typographical errors. These areas are purely typographical due to imperfections of the software programs, and do not reflect any compromise in the patient's medical care Prognosis guarded Dietary Evaluation Review Comments: 1) Pro-stat 1 pk BID 2) Nephro-karl 1 tab daily 3) TF Nepro Carb Steady @ 25ml/hr along with current rate of propofol. TF @ goal volume along with Pro-stat & propofol provides 1381 kcal (100% energy needs) & 79gm protein (100% protein needs) Expected Outcomes/Goals: To meet >75% estimated needs Fu 2-3 days Plan discussed with: Other KIT GRISSOM MD Oct 27, 2024 10:27
[2024-10-27 10:31] LABS: Base Excess 3.7 mmol/L (-2.0-3.0)
--- NOTE | 2024-10-27 11:35 | DVHPN2 ---
Progress Note Date Seen: Oct 27, 2024 Has the PT tested + for MRSA If YES, has PT been informed?: No Medical Necessity Reason Pt with a Central, PICC or Fol: No The following are medically ne: Central Line, Ivey Catheter Reason for ivey catheter: Strict I&O Subjective Patient reports: No new complaints Review of Systems: HEENT:Normal, CVS:Normal, RESPIRATORY:Normal, GI:Normal, :Normal, MSK:Normal, NEURO:Normal Objective vital signs Vital Sign Date Time Temp Pulse Resp B/P (MAP) Pulse Ox O2 Delivery O2 Flow Rate FiO2 10/27/24 10:57 135/62 10/27/24 10:14 74 25 98 30 10/27/24 09:30 99.0 210.2 10/27/24 08:00 Mechanical Ventilator+ Total Intake and Output 10/26/24 10/26/24 10/27/24 15:00 23:00 07:00 Intake Total 218.92 ml 536.42 ml 351.32 ml Output Total 0 ml Balance 218.92 ml 536.42 ml 351.32 ml medications Current Medications Medications Dose Ordered Sig/Maru Route Start Time Stop Time Status Last Admin Dose Admin Patient Own Medication 1 tab DAILY PO 10/18/24 10:00 UNV Sodium Chloride 10 ml Q8HR IV 10/18/24 14:00 10/27/24 05:40 10 ML Docusate Sodium 100 mg BIDPRN PRN PO 10/18/24 07:30 Acetaminophen 650 mg Q6HP PRN PO 10/18/24 07:30 Nitroglycerin 0.4 mg Q5MINP PRN SL 10/18/24 07:30 Ipratropium [place] 0.5 mg Q4HPRN PRN NEB 10/18/24 07:30 Albuterol 2.5 mg Q4HPRN PRN NEB 10/18/24 07:30 Levetiracetam 100 ml @ 400 mls/hr BID IV 10/18/24 10:00 10/27/24 10:08 400 MLS/HR Lorazepam 1 mg Q5MINP PRN IV 10/18/24 21:00 10/19/24 11:31 1 MG Enteral Nutritional Formula 1,000 ml 30ML/HR GT 10/20/24 10:15 10/22/24 04:51 1,000 ML Norepinephrine Bitartrate 250 ml @ 3.75 mls/hr Q24H IV 10/20/24 12:15 UNV Norepinephrine Bitartrate 250 ml @ 3.75 mls/hr Q24H IV 10/20/24 12:15 UNV Piperacillin Sod/ Tazobactam Sod 50 ml @ 12.5 mls/hr Q8HR IV 10/20/24 22:00 10/27/24 05:36 12.5 MLS/HR Pantoprazole Sodium 40 mg DAILY IV 10/21/24 10:00 10/27/24 10:08 40 MG Propofol 100 ml @ 1.77 mls/hr Q24H IV 10/20/24 12:45 10/26/24 19:32 10.62 MLS/HR Midazolam HCl 50 ml @ 1 mls/hr Q24H IV 10/20/24 12:45 Fentanyl Citrate 250 ml @ 2.5 mls/hr Q24H IV 10/20/24 12:45 10/21/24 22:56 7.5 MLS/HR Diagnostic Test (Pha) 1 strip ACHS 10/20/24 22:00 10/27/24 10:58 1 STRIP Insulin Human Regular ACHS SC 10/20/24 22:00 Dextrose 50 ml UD PRN IV 10/20/24 21:45 Vancomycin HCl 0 ml @ 0 mls/hr UD IV 10/21/24 12:00 Phenytoin Sodium 100 mg Q8HR IV 10/22/24 14:00 10/26/24 21:32 100 MG Nicardipine/ Sodium Chloride 200 ml @ 50 mls/hr Q4H IV 10/23/24 14:00 10/27/24 10:57 25 MLS/HR Metoprolol Tartrate 50 mg BID PO 10/24/24 12:15 10/26/24 21:51 50 MG Hydralazine HCl 25 mg Q8HR PO 10/25/24 22:00 10/27/24 05:35 25 MG Ondansetron HCl 4 mg Q6HPRN PRN IV 10/25/24 23:15 10/25/24 23:14 4 MG Potassium Chloride 100 ml @ 50 mls/hr Q2H IV 10/26/24 12:15 10/26/24 18:14 UNV Examination: GENERAL:Normal, HEENT:Normal, NECK:Normal, LUNGS:Normal, LUNGS:Abnormal (intubated), CVS:Normal, ABDOMEN:Normal, MSK:Normal, SKIN:Normal, NEURO:Normal, :Normal laboratory and microbiology Laboratory Tests 10/27/24 05:47 Test 10/27/24 05:47 Range/Units Serum Glucose 81 74-106 mg/dL Microbiology Date/Time Source Procedure Growth Status 10/21/24 18:37 Blood Blood Culture - Final NO GROWTH AFTER 5 DAYS OF INCUBATION. Complete 10/20/24 15:00 Nose MRSA Screen - Final Complete 10/20/24 12:42 Sputum Gram Stain - Final Complete 10/20/24 12:42 Respiratory Culture - Final Klebsiella pneumoniae Citrobacter species Complete Problem List/Assessment/Plan Problem List/Assessment/Plan * Hypertensive emergency: off nicardipine drip, adjust meds * Ddern-cj-zckunnk diastolic heart failure: dialysis * Seizure disorder: neuro eval, on keppra, dilantin-check level * Severe pulmonary hypertension. * Severe tricuspid regurgitation. * COPD with exacerbation. * End-stage renal disease, on hemodialysis. * Chronic anemia. * Moderate protein malnutrition: tube feedings * Acute respiratory failure: on acv, cpap trial * pneumonia with shock /[id number] vanc, zosyn, cultures- gram positive/neg, on pressors * encephalopathy ? metabolic ?post ictal long dw sisters-explained plan of care advance care planning- full code- time spent 19 mins Plan discussed with: Other My Orders My Orders Orders - BRANDIE SPENCE MD Procedure Category Date Status Time Cpap Trial For Am ORDERS 10/26/24 Transmitted 11:47 Chest Portable XY 10/27/24 Resulted 06:00 Abg W/ Co-Ox RT 10/27/24 Logged 06:00 Abg W/ Co-Ox RT 10/27/24 Logged 10:00 Dietary Evaluation Review Comments: 1) Pro-stat 1 pk BID 2) Nephro-karl 1 tab daily 3) TF Nepro Carb Steady @ 25ml/hr along with current rate of propofol. TF @ goal volume along with Pro-stat & propofol provides 1381 kcal (100% energy needs) & 79gm protein (100% protein needs) Expected Outcomes/Goals: To meet >75% estimated needs Fu 2-3 days Critical Care Time (mins): 81 (critical care time including cpap trial and excluding procedures is 81 mins) Date of Service: Oct 27, 2024 Billing Provider: BRANDIE SPENCE MD Common Visit Codes: 31016-HTSEGBYN CARE 30-74 MIN, 36614-RSZERHUY CARE-EACH +30MIN BRANDIE SPENCE MD Oct 27, 2024 11:35
[2024-10-27] MEDS: VANCOMYCIN 500mg/100mL 100 ML IV ONE (16:45)
--- NOTE | 2024-10-27 16:54 | DVHPN2 ---
Progress Note - Dictate Date Seen: Oct 27, 2024 Has the PT tested + for MRSA If YES, has PT been informed?: No Medical Necessity Reason Pt with a Central, PICC or Fol: No The following are medically ne: Central Line, Ivey Catheter Reason for ivey catheter: Strict I&O Subjective Patient failed weaning trial vital signs Vital Sign Date Time Temp Pulse Resp B/P (MAP) Pulse Ox O2 Delivery O2 Flow Rate FiO2 10/27/24 16:43 136/68 10/27/24 16:00 30 10/27/24 16:00 79 10/27/24 16:00 15 100 Mechanical Ventilator+ 10/27/24 14:30 98.4 209.1 Total Intake and Output 10/26/24 10/26/24 10/27/24 15:00 23:00 07:00 Intake Total 218.92 ml 536.42 ml 351.32 ml Output Total 0 ml Balance 218.92 ml 536.42 ml 351.32 ml medications Current Medications Medications Dose Ordered Sig/Maru Route Start Time Stop Time Status Last Admin Dose Admin Patient Own Medication 1 tab DAILY PO 10/18/24 10:00 UNV Sodium Chloride 10 ml Q8HR IV 10/18/24 14:00 10/27/24 14:17 10 ML Docusate Sodium 100 mg BIDPRN PRN PO 10/18/24 07:30 Acetaminophen 650 mg Q6HP PRN PO 10/18/24 07:30 Nitroglycerin 0.4 mg Q5MINP PRN SL 10/18/24 07:30 Ipratropium [place] 0.5 mg Q4HPRN PRN NEB 10/18/24 07:30 Albuterol 2.5 mg Q4HPRN PRN NEB 10/18/24 07:30 Levetiracetam 100 ml @ 400 mls/hr BID IV 10/18/24 10:00 10/27/24 10:08 400 MLS/HR Lorazepam 1 mg Q5MINP PRN IV 10/18/24 21:00 10/19/24 11:31 1 MG Enteral Nutritional Formula 1,000 ml 30ML/HR GT 10/20/24 10:15 10/22/24 04:51 1,000 ML Norepinephrine Bitartrate 250 ml @ 3.75 mls/hr Q24H IV 10/20/24 12:15 UNV Norepinephrine Bitartrate 250 ml @ 3.75 mls/hr Q24H IV 10/20/24 12:15 UNV Piperacillin Sod/ Tazobactam Sod 50 ml @ 12.5 mls/hr Q8HR IV 10/20/24 22:00 10/27/24 14:13 12.5 MLS/HR Pantoprazole Sodium 40 mg DAILY IV 10/21/24 10:00 10/27/24 10:08 40 MG Midazolam HCl 50 ml @ 1 mls/hr Q24H IV 10/20/24 12:45 Fentanyl Citrate 250 ml @ 2.5 mls/hr Q24H IV 10/20/24 12:45 10/21/24 22:56 7.5 MLS/HR Diagnostic Test (Pha) 1 strip ACHS 10/20/24 22:00 10/27/24 10:58 1 STRIP Insulin Human Regular ACHS SC 10/20/24 22:00 Dextrose 50 ml UD PRN IV 10/20/24 21:45 Vancomycin HCl 0 ml @ 0 mls/hr UD IV 10/21/24 12:00 Phenytoin Sodium 100 mg Q8HR IV 10/22/24 14:00 10/27/24 14:16 100 MG Nicardipine/ Sodium Chloride 200 ml @ 50 mls/hr Q4H IV 10/23/24 14:00 10/27/24 16:43 50 MLS/HR Metoprolol Tartrate 50 mg BID PO 10/24/24 12:15 10/26/24 21:51 50 MG Hydralazine HCl 25 mg Q8HR PO 10/25/24 22:00 10/27/24 14:16 25 MG Ondansetron HCl 4 mg Q6HPRN PRN IV 10/25/24 23:15 10/25/24 23:14 4 MG Potassium Chloride 100 ml @ 50 mls/hr Q2H IV 10/26/24 12:15 10/26/24 18:14 UNV objective HEENT: ET tube in place Pulmonary: Diminished lung sounds on auscultation bilaterally Cardiovascular S1-S2, no S3 or S4 Abdomen: Bowel sounds positive, soft no rebound tenderness Skin: No rash Neurological: Alert, of sedation Right forearm AV fistula laboratory and microbiology Laboratory Tests 10/27/24 05:47 Test 10/27/24 05:47 Range/Units Serum Glucose 81 74-106 mg/dL Assessment/Plan Assessment: 1. ESRD 2. CHF, currently she is euvolemic 3. Hypertension 4. Seizure disorder 5. Severe pulmonary hypertension 6. COPD with exacerbation with superimposed pneumonia 7. Anemia of CKD 8. Metabolic encephalopathy Plan: HD today, then TTS, in a.m. Attempt extubation afterwards IV antibiotics for pneumonia cardiology for management of pulmonary HTN Went off mechanical ventilation when possible Bennie as needed for goal hemoglobin 10-11 g per dL Dietary Evaluation Review Comments: 1) Pro-stat 1 pk BID 2) Nephro-karl 1 tab daily 3) TF Nepro Carb Steady @ 25ml/hr along with current rate of propofol. TF @ goal volume along with Pro-stat & propofol provides 1381 kcal (100% energy needs) & 79gm protein (100% protein needs) Expected Outcomes/Goals: To meet >75% estimated needs Fu 2-3 days Plan discussed with: Patient SHAMAR ORELLANA MD Oct 27, 2024 16:54
[2024-10-28] VITALS (104 sets, daily range): BP systolic 104–164; BP diastolic 47–87; PULSE 59–78; RESP 11–31; TEMP 95.5–98.4; O2SAT 90–100
[2024-10-28 05:43] LABS: Hematocrit 28.5 % (36.0-46.0); Hemoglobin 9.4 g/dL (12.2-16.2); Mean Corpuscular Hemoglobin 30.5 pg (28.0-32.0); Mean Corpuscular Hgb Conc. 32.9 g/dL (32.0-36.0); Mean Corpuscular Volume 92.9 fL (80.0-100.0); Platelet Count (auto) 265 10^3/uL (140-450); Red Blood Cells 3.07 10^6/uL (4.0-5.20); Red Cell Distribution Width 19.5 % (11.8-14.3)
[2024-10-28 05:49] LABS: Alanine Aminotransferase 29 U/L (7-40); Alkaline Phosphatase 99 U/L (46-116); Anion Gap 15 (5-15); Aspartate Aminotransferase 34 U/L (<34); BUN/Creatinine Ratio 3.3 (10.0-20.0); Band Neutrophils % (manual) 0; Basophils % (manual) 0 (0.0-2.0); Blast Cells 0; Blood Urea Nitrogen 18 mg/dL (9-23); Calcium 9.5 mg/dL (8.7-10.4); Carbon Dioxide 24 mmol/L (20-31); Chloride 102 mmol/L (98-107); Glucose 80 mg/dL (74-106); Metamyelocytes % 0; Myelocytes % 0; Reactive Lymphocytes 0; Sodium 141 mmol/L (136-145); Total Protein 7.5 g/dL (5.7-8.2)
[2024-10-28 05:50] LABS: Albumin 2.9 g/dL (3.2-4.8); Bilirubin, Total 0.2 mg/dL (0.2-1.0); Potassium 2.9 mmol/L (3.5-5.1)
--- NOTE | 2024-10-28 06:13 | DVH ---
EXAM: XR Chest, 1 View CLINICAL INDICATION: Pain TECHNIQUE: Frontal view of the chest. COMPARISON: XR Chest dated 10/27/2024 FINDINGS: LUNGS AND PLEURAL SPACES: See below. HEART: Cardiomegaly with pulmonary congestion and edema. Superimposed pneumonia cannot be excluded. MEDIASTINUM: Unremarkable. Normal mediastinal contour. BONES/JOINTS: Unremarkable. No acute fracture. TUBES, LINES AND DEVICES: The endotracheal tube (ETT) is in satisfactory position. Enteric tube tip in the stomach. IMPRESSION: Cardiomegaly with pulmonary congestion and edema. Superimposed pneumonia cannot be excluded.
[2024-10-28 06:24] LABS: Eosinophils % (manual) 4 (0-7); Lymphocytes % (manual) 17 (10.0-50.0); Monocytes % (manual) 11 (0-12); Promyelocytes % 1
[2024-10-28 06:25] LABS: Platelet Estimate Adequate
--- NOTE | 2024-10-28 11:23 | DVHPN2 ---
Progress Note Date Seen: Oct 28, 2024 Has the PT tested + for MRSA If YES, has PT been informed?: No Medical Necessity Reason Pt with a Central, PICC or Fol: No The following are medically ne: Central Line, Ivey Catheter Reason for ivey catheter: Strict I&O Subjective Patient reports: No new complaints Review of Systems: HEENT:Normal, CVS:Normal, RESPIRATORY:Normal, GI:Normal, :Normal, MSK:Normal, NEURO:Normal Objective vital signs Vital Sign Date Time Temp Pulse Resp B/P (MAP) Pulse Ox O2 Delivery O2 Flow Rate FiO2 10/28/24 10:40 138/74 10/28/24 08:53 72 14 95 30 10/28/24 08:00 96.6 205.9 10/28/24 08:00 Mechanical Ventilator+ Total Intake and Output 10/27/24 10/27/24 10/28/24 15:00 23:00 07:00 Intake Total 310 ml 582.5 ml 488.0 ml Output Total 3 ml Balance 310 ml 579.5 ml 488.0 ml medications Current Medications Medications Dose Ordered Sig/Maru Route Start Time Stop Time Status Last Admin Dose Admin Patient Own Medication 1 tab DAILY PO 10/18/24 10:00 UNV Sodium Chloride 10 ml Q8HR IV 10/18/24 14:00 10/28/24 06:01 10 ML Docusate Sodium 100 mg BIDPRN PRN PO 10/18/24 07:30 Acetaminophen 650 mg Q6HP PRN PO 10/18/24 07:30 Nitroglycerin 0.4 mg Q5MINP PRN SL 10/18/24 07:30 Ipratropium [place] 0.5 mg Q4HPRN PRN NEB 10/18/24 07:30 Albuterol 2.5 mg Q4HPRN PRN NEB 10/18/24 07:30 Levetiracetam 100 ml @ 400 mls/hr BID IV 10/18/24 10:00 10/28/24 10:42 400 MLS/HR Lorazepam 1 mg Q5MINP PRN IV 10/18/24 21:00 10/19/24 11:31 1 MG Enteral Nutritional Formula 1,000 ml 30ML/HR GT 10/20/24 10:15 10/22/24 04:51 1,000 ML Norepinephrine Bitartrate 250 ml @ 3.75 mls/hr Q24H IV 10/20/24 12:15 UNV Norepinephrine Bitartrate 250 ml @ 3.75 mls/hr Q24H IV 10/20/24 12:15 UNV Piperacillin Sod/ Tazobactam Sod 50 ml @ 12.5 mls/hr Q8HR IV 10/20/24 22:00 10/28/24 06:01 12.5 MLS/HR Pantoprazole Sodium 40 mg DAILY IV 10/21/24 10:00 10/28/24 10:40 40 MG Midazolam HCl 50 ml @ 1 mls/hr Q24H IV 10/20/24 12:45 Fentanyl Citrate 250 ml @ 2.5 mls/hr Q24H IV 10/20/24 12:45 10/21/24 22:56 7.5 MLS/HR Diagnostic Test (Pha) 1 strip ACHS 10/20/24 22:00 10/28/24 06:27 1 STRIP Insulin Human Regular ACHS SC 10/20/24 22:00 Dextrose 50 ml UD PRN IV 10/20/24 21:45 Vancomycin HCl 0 ml @ 0 mls/hr UD IV 10/21/24 12:00 Phenytoin Sodium 100 mg Q8HR IV 10/22/24 14:00 10/28/24 06:00 100 MG Nicardipine/ Sodium Chloride 200 ml @ 50 mls/hr Q4H IV 10/23/24 14:00 10/28/24 10:40 25 MLS/HR Metoprolol Tartrate 50 mg BID PO 10/24/24 12:15 10/27/24 21:41 50 MG Hydralazine HCl 25 mg Q8HR PO 10/25/24 22:00 10/27/24 21:41 25 MG Ondansetron HCl 4 mg Q6HPRN PRN IV 10/25/24 23:15 10/25/24 23:14 4 MG Potassium Chloride 100 ml @ 50 mls/hr Q2H IV 10/26/24 12:15 10/26/24 18:14 UNV Examination: GENERAL:Normal, HEENT:Normal, NECK:Normal, LUNGS:Normal, LUNGS:Abnormal (intubated), CVS:Normal, ABDOMEN:Normal, MSK:Normal, SKIN:Normal, NEURO:Normal, :Normal laboratory and microbiology Laboratory Tests 10/28/24 04:36 Test 10/28/24 04:36 Range/Units Serum Glucose 80 74-106 mg/dL Microbiology Date/Time Source Procedure Growth Status 10/21/24 18:37 Blood Blood Culture - Final NO GROWTH AFTER 5 DAYS OF INCUBATION. Complete 10/20/24 15:00 Nose MRSA Screen - Final Complete 10/20/24 12:42 Sputum Gram Stain - Final Complete 10/20/24 12:42 Respiratory Culture - Final Klebsiella pneumoniae Citrobacter species Complete Problem List/Assessment/Plan Problem List/Assessment/Plan * Hypertensive emergency: off nicardipine drip, adjust meds * Vezhh-sv-laxltyo diastolic heart failure: dialysis * Seizure disorder: neuro eval, on keppra, dilantin-check level * Severe pulmonary hypertension. * Severe tricuspid regurgitation. * COPD with exacerbation. * End-stage renal disease, on hemodialysis. * Chronic anemia. * Moderate protein malnutrition: tube feedings * Acute respiratory failure: on acv, cpap trial * pneumonia with shock /jctcmn-pphm-sh vanc, zosyn, cultures- gram positive/neg, on pressors * encephalopathy ? metabolic ?post ictal long dw sisters-explained plan of care advance care planning- full code- time spent 19 mins Plan discussed with: Other (rn) My Orders My Orders Orders - BRANDIE SPENCE MD Procedure Category Date Status Time Chest Portable XY 10/28/24 Resulted 06:00 Vancomycin,Random LAB 10/29/24 Verified 04:00 Creatinine LAB 10/29/24 Verified 04:00 Hydralazine Hcl PHA 10/28/24 Verified Tablet (Apresoline 14:00 Cpap/Sed Vacation Med ORDERS 10/28/24 Verified Weaning 11:18 Potassium LAB 10/28/24 Verified 13:00 Complete Blood Count LAB 10/29/24 Verified 06:00 Comprehensive LAB 10/29/24 Verified Metabolic Panel 06:00 Chest Portable XY 10/29/24 Verified 06:00 Phenytoin (Dilantin) LAB 10/29/24 Verified 06:00 Dietary Evaluation Review Comments: 1) Pro-stat 1 pk BID 2) Nephro-karl 1 tab daily 3) TF Nepro Carb Steady @ 25ml/hr along with current rate of propofol. TF @ goal volume along with Pro-stat & propofol provides 1381 kcal (100% energy needs) & 79gm protein (100% protein needs) Expected Outcomes/Goals: To meet >75% estimated needs Fu 2-3 days Critical Care Time (mins): 81 (critical care time including cpap trial was 81 mins and excluding procedures) Date of Service: Oct 28, 2024 Billing Provider: BRANDIE SPENCE MD Common Visit Codes: 58586-EUAVDWXY CARE 30-74 MIN, 73458-[id number] CARE-EACH +30MIN BRANDIE SPENCE MD Oct 28, 2024 11:23
[2024-10-28 12:39] LABS: Base Excess 3.9 mmol/L (-2.0-3.0)
[2024-10-28] MEDS: hydrALAZINE HCL 25 MG TAB PO SCH (14:14)
--- NOTE | 2024-10-28 15:20 | DVHPN2 ---
Progress Note - Dictate Date Seen: Oct 28, 2024 Has the PT tested + for MRSA If YES, has PT been informed?: No Medical Necessity Reason Pt with a Central, PICC or Fol: No The following are medically ne: Central Line, Ivey Catheter Reason for ivey catheter: Strict I&O Subjective Patient failed weaning trial vital signs Vital Sign Date Time Temp Pulse Resp B/P (MAP) Pulse Ox O2 Delivery O2 Flow Rate FiO2 10/28/24 15:15 95.5 63 24 128/57 (80) 100 203.9 115/51 (72) 10/28/24 14:20 30 10/28/24 14:00 Mechanical Ventilator+ Total Intake and Output 10/27/24 10/27/24 10/28/24 15:00 23:00 07:00 Intake Total 310 ml 582.5 ml 488.0 ml Output Total 3 ml Balance 310 ml 579.5 ml 488.0 ml medications Current Medications Medications Dose Ordered Sig/Maru Route Start Time Stop Time Status Last Admin Dose Admin Patient Own Medication 1 tab DAILY PO 10/18/24 10:00 UNV Sodium Chloride 10 ml Q8HR IV 10/18/24 14:00 10/28/24 14:14 10 ML Docusate Sodium 100 mg BIDPRN PRN PO 10/18/24 07:30 Acetaminophen 650 mg Q6HP PRN PO 10/18/24 07:30 Nitroglycerin 0.4 mg Q5MINP PRN SL 10/18/24 07:30 Ipratropium [place] 0.5 mg Q4HPRN PRN NEB 10/18/24 07:30 Albuterol 2.5 mg Q4HPRN PRN NEB 10/18/24 07:30 Levetiracetam 100 ml @ 400 mls/hr BID IV 10/18/24 10:00 10/28/24 10:42 400 MLS/HR Lorazepam 1 mg Q5MINP PRN IV 10/18/24 21:00 10/19/24 11:31 1 MG Enteral Nutritional Formula 1,000 ml 30ML/HR GT 10/20/24 10:15 10/22/24 04:51 1,000 ML Norepinephrine Bitartrate 250 ml @ 3.75 mls/hr Q24H IV 10/20/24 12:15 UNV Norepinephrine Bitartrate 250 ml @ 3.75 mls/hr Q24H IV 10/20/24 12:15 UNV Piperacillin Sod/ Tazobactam Sod 50 ml @ 12.5 mls/hr Q8HR IV 10/20/24 22:00 10/28/24 14:14 12.5 MLS/HR Pantoprazole Sodium 40 mg DAILY IV 10/21/24 10:00 10/28/24 10:40 40 MG Midazolam HCl 50 ml @ 1 mls/hr Q24H IV 10/20/24 12:45 Fentanyl Citrate 250 ml @ 2.5 mls/hr Q24H IV 10/20/24 12:45 10/21/24 22:56 7.5 MLS/HR Diagnostic Test (Pha) 1 strip ACHS 10/20/24 22:00 10/28/24 11:31 1 STRIP Insulin Human Regular ACHS SC 10/20/24 22:00 Dextrose 50 ml UD PRN IV 10/20/24 21:45 Vancomycin HCl 0 ml @ 0 mls/hr UD IV 10/21/24 12:00 Phenytoin Sodium 100 mg Q8HR IV 10/22/24 14:00 10/28/24 14:13 100 MG Nicardipine/ Sodium Chloride 200 ml @ 50 mls/hr Q4H IV 10/23/24 14:00 10/28/24 10:40 25 MLS/HR Metoprolol Tartrate 50 mg BID PO 10/24/24 12:15 10/28/24 11:24 50 MG Ondansetron HCl 4 mg Q6HPRN PRN IV 10/25/24 23:15 10/25/24 23:14 4 MG Potassium Chloride 100 ml @ 50 mls/hr Q2H IV 10/26/24 12:15 10/26/24 18:14 UNV Hydralazine HCl 50 mg Q8HR PO 10/28/24 14:00 10/28/24 14:14 50 MG objective HEENT: ET tube in place Pulmonary: Diminished lung sounds on auscultation bilaterally Cardiovascular S1-S2, no S3 or S4 Abdomen: Bowel sounds positive, soft no rebound tenderness Skin: No rash Neurological: Alert, of sedation Right forearm AV fistula laboratory and microbiology Laboratory Tests 10/28/24 12:52 10/28/24 04:36 Test 6/19/25 04:36 Range/Units Serum Glucose 80 74-106 mg/dL Assessment/Plan Assessment: 1. ESRD 2. CHF, currently she is euvolemic 3. Hypertension 4. Seizure disorder 5. Severe pulmonary hypertension 6. COPD with exacerbation with superimposed pneumonia 7. Anemia of CKD 8. Metabolic encephalopathy Plan: Hemodialysis planned for Friday. Completed dialysis today Attempt extubation afterwards, has had apneic episodes IV antibiotics for pneumonia cardiology for management of pulmonary HTN Went off mechanical ventilation when possible Bennie as needed for goal hemoglobin 10-11 g per dL Dietary Evaluation Review Comments: 1) Pro-stat 1 pk BID 2) Nephro-karl 1 tab daily 3) TF Nepro Carb Steady @ 25ml/hr along with current rate of propofol. TF @ goal volume along with Pro-stat & propofol provides 1381 kcal (100% energy needs) & 79gm protein (100% protein needs) Expected Outcomes/Goals: To meet >75% estimated needs Fu 2-3 days Plan discussed with: Patient SHAMAR ORELLANA MD Oct 28, 2024 15:20
[2024-10-28] MEDS: POTASSIUM CHL 20MEQ/100ML 100 ML IV ONE (18:34)
--- NOTE | 2024-10-28 21:19 | DVHPN2 ---
Progress Note - Dictate Date Seen: Oct 28, 2024 Has the PT tested + for MRSA If YES, has PT been informed?: No Medical Necessity Reason Pt with a Central, PICC or Fol: No The following are medically ne: Central Line, Ivey Catheter Reason for ivey catheter: Strict I&O Subjective Ms. Wright is a 68 years old female with a history of hypertension, end-stage renal failure on hemodialysis, seizure disorder, goes she was brought to the [facility] on 10/18/2024 with a chief complaint of SOB, ALOC. I saw her on 09/13/2024 for encephalopathy I have seen and examined the patient, I have talked to her nurse, she was awake, but looks tired, responsive to verbal stimuli Extubation was not successful She developed respiratory distress and was intubated on 10/21/2024 Phenytoin, 09/13/2024: 4.9, 10/22/24: 11.3 (albumin: 2.9), 10/24/2024: 13.6, 10/26/2024: 15.7, 10/27/2024: 13.4, 10/28/2024: 13.9 WBC/HB/PLT/MCV, 09/12/2024: 4/9.9/160/86.7, 10/18/2024: 7.4/9.2/304/93.6 BUN/CR, 09/12/2024: 28/6.37, 10/18/2024: 29/7.25, 10/19/2024: 35/8.25 GFR, 10/19/2024: 5 TBI/AST/ALT/AP, 09/12/2024: 0.6/67/30/143 Lactic acid, 10/18/24: 1 TSH, 09/13/2024: 2.01 EEG, 09/14/24: A moderately abnormal EEG Chest x-ray, 09/11/2024: 1. Moderately severe cardiomegaly 2. Moderate bilateral interstitial changes CT head, 09/12/2024: 1. No acute intracranial hemorrhage 2. No CT findings of territorial ischemia CT head, 10/18/2024: 1. Generalized brain atrophy. 2. Small vessel ischemic/degenerative changes. 3. No acute intracranial hemorrhage, midline shift or mass effect. If symptoms persist, further evaluation with MRI is recommended. MRI head, 09/19/2024: No acute infarct, intracranial hemorrhage, mass effect, or hydrocephalus MRI head, 10/18/2024: No evidence of acute infarction, intracranial hemorrhage, mass effect or hydrocephalus. Moderate changes of chronic microvascular ischemic disease. vital signs Vital Sign Date Time Temp Pulse Resp B/P (MAP) Pulse Ox O2 Delivery O2 Flow Rate FiO2 10/28/24 20:30 97.5 64 14 145/79 (101) 100 207.5 132/65 (87) 10/28/24 20:20 30 10/28/24 20:00 Mechanical Ventilator+ Total Intake and Output 10/27/24 10/27/24 10/28/24 15:00 23:00 07:00 Intake Total 310 ml 582.5 ml 488.0 ml Output Total 3 ml Balance 310 ml 579.5 ml 488.0 ml medications Current Medications Medications Dose Ordered Sig/Maru Route Start Time Stop Time Status Last Admin Dose Admin Patient Own Medication 1 tab DAILY PO 10/18/24 10:00 UNV Sodium Chloride 10 ml Q8HR IV 10/18/24 14:00 10/28/24 14:14 10 ML Docusate Sodium 100 mg BIDPRN PRN PO 10/18/24 07:30 Acetaminophen 650 mg Q6HP PRN PO 10/18/24 07:30 Nitroglycerin 0.4 mg Q5MINP PRN SL 10/18/24 07:30 Ipratropium [place] 0.5 mg Q4HPRN PRN NEB 10/18/24 07:30 Albuterol 2.5 mg Q4HPRN PRN NEB 10/18/24 07:30 Levetiracetam 100 ml @ 400 mls/hr BID IV 10/18/24 10:00 10/28/24 10:42 400 MLS/HR Lorazepam 1 mg Q5MINP PRN IV 10/18/24 21:00 10/19/24 11:31 1 MG Enteral Nutritional Formula 1,000 ml 30ML/HR GT 10/20/24 10:15 10/22/24 04:51 1,000 ML Norepinephrine Bitartrate 250 ml @ 3.75 mls/hr Q24H IV 10/20/24 12:15 UNV Norepinephrine Bitartrate 250 ml @ 3.75 mls/hr Q24H IV 10/20/24 12:15 UNV Piperacillin Sod/ Tazobactam Sod 50 ml @ 12.5 mls/hr Q8HR IV 10/20/24 22:00 10/28/24 14:14 12.5 MLS/HR Pantoprazole Sodium 40 mg DAILY IV 10/21/24 10:00 10/28/24 10:40 40 MG Midazolam HCl 50 ml @ 1 mls/hr Q24H IV 10/20/24 12:45 Fentanyl Citrate 250 ml @ 2.5 mls/hr Q24H IV 10/20/24 12:45 10/21/24 22:56 7.5 MLS/HR Diagnostic Test (Pha) 1 strip ACHS 10/20/24 22:00 10/28/24 17:24 1 STRIP Insulin Human Regular ACHS SC 10/20/24 22:00 Dextrose 50 ml UD PRN IV 10/20/24 21:45 Vancomycin HCl 0 ml @ 0 mls/hr UD IV 10/21/24 12:00 Phenytoin Sodium 100 mg Q8HR IV 10/22/24 14:00 10/28/24 14:13 100 MG Nicardipine/ Sodium Chloride 200 ml @ 50 mls/hr Q4H IV 10/23/24 14:00 10/28/24 10:40 25 MLS/HR Metoprolol Tartrate 50 mg BID PO 10/24/24 12:15 10/28/24 11:24 50 MG Ondansetron HCl 4 mg Q6HPRN PRN IV 10/25/24 23:15 10/25/24 23:14 4 MG Potassium Chloride 100 ml @ 50 mls/hr Q2H IV 10/26/24 12:15 10/26/24 18:14 UNV Hydralazine HCl 50 mg Q8HR PO 10/28/24 14:00 10/28/24 14:14 50 MG objective The patient is well-nourished and well-developed with no distress. The patient is intubated MENTAL STATUS: Subjective CRANIAL NERVES: Pupils are equal round and reactive to light briskly, normal external eye movement, normal sensation and motor examination in the lateral trigeminal nerve distribution, no facial weakness. SENSATION: Okay to light touch and pinprick MOTOR: Normal tone in the upper and lower extremity. Normal muscle bulk. No fasciculations. She moves her arms. REFLEXES: Deep tendon reflexes are symmetrical. No pathological reflexes. CEREBELLAR/COORDINATION: Deferred GAIT/STATION: deferred. laboratory and microbiology Laboratory Tests 10/28/24 12:52 10/28/24 04:36 Test 10/28/24 04:36 Range/Units Serum Glucose 80 74-106 mg/dL Problem List Acute respiratory failure Altered mental status Metabolic encephalopathy Hypoxic encephalopathy ? Seizure activity on 10/19/24 Visual hallucination secondary to metabolic encephalopathy Seizure disorder, according to description she has Grand mal seizure Partial complex seizure End-stage renal failure on hemodialysis Assessment/Plan Monitoring Supportive treatment EEG ICU care Stabilize vitals Respiratory support/vent management Dilantin 100 mg IV Tid. Keppra 500 mg IV b.i.d. (ESRF) Ativan for seizure breakthrough Nephrology Re: Kidney failure DVT prophylaxis Consider extubation More recommendation per clinical course This medical document was created using an electronic medical record system with [employer] dictation system. Although this document has been carefully reviewed, there may still be some phonetic and typographical errors. These areas are purely typographical due to imperfections of the software programs, and do not reflect any compromise in the patient's medical care Prognosis guarded Dietary Evaluation Review Comments: 1) Pro-stat 1 pk BID 2) Nephro-karl 1 tab daily 3) TF Nepro Carb Steady @ 25ml/hr along with current rate of propofol. TF @ goal volume along with Pro-stat & propofol provides 1381 kcal (100% energy needs) & 79gm protein (100% protein needs) Expected Outcomes/Goals: To meet >75% estimated needs Fu 2-3 days Plan discussed with: Other KIT GRISSOM MD Oct 28, 2024 21:19
[2024-10-28] MEDS: EPOETIN ALFA-EPBX 10,000 UNIT/1ML VIAL SC ONE (21:35)
--- NOTE | 2024-10-28 21:57 | DVHEEG2 ---
Neurology EEG Procedural Note Procedural Note EXAM DATE: 10/25/24 REFERRING DOCTOR: Dr. Grissom TECHNIQUE: Eighteen channels of EEG, 2 channels of EOG, and 1 channel of EKG were recorded using the [employer] 10/20 system. CLINICAL DATA: The patient was referred for an EEG evaluation for the evidence of seizure disorder. MEDICATIONS: Seizure chart BACKGROUND ACTIVITY: The record showed diffuse rhythmic/semirhythmic waveform in alpha range, diffusely over both hemispheres with interval of brief relatively suppressed background activity ACTIVATION: Hyperventilation: Not done Photic Stimulation: Not done Sleep: Unresponsiveness IMPRESSION: This is a remarkably abnormal EEG, this EEG seen in severe cerebral dysfunction due to metabolic/hypoxic encephalopathy or medication effects, please correlate clinically The EKG channel showed a regular heart rate of 60 per minute. [place] [address] KIT GRISSOM MD Oct 28, 2024 21:57
[2024-10-29] VITALS (106 sets, daily range): BP systolic 87–179; BP diastolic 49–89; PULSE 48–84; RESP 9–37; TEMP 51.8–99.3; O2SAT 79–100
--- NOTE | 2024-10-29 05:17 | DVH ---
EXAM: XR Chest, 1 View CLINICAL INDICATION: Pain TECHNIQUE: Frontal view of the chest. COMPARISON: XR Chest dated 10/28/2024 FINDINGS: LUNGS AND PLEURAL SPACES: See below. HEART: Cardiomegaly with mild congestion. MEDIASTINUM: Unremarkable. Normal mediastinal contour. BONES/JOINTS: Unremarkable. No acute fracture. TUBES, LINES AND DEVICES: The endotracheal tube (ETT) is in satisfactory position. Enteric tube tip cannot be seen but is below the diaphragm. IMPRESSION: Cardiomegaly with mild congestion.
[2024-10-29 05:23] LABS: Alanine Aminotransferase 26 U/L (7-40); Alkaline Phosphatase 110 U/L (46-116); Calcium 9.8 mg/dL (8.7-10.4)
[2024-10-29 05:24] LABS: Anion Gap 14 (5-15); BUN/Creatinine Ratio 2.9 (10.0-20.0); Blood Urea Nitrogen 11 mg/dL (9-23); Carbon Dioxide 25 mmol/L (20-31); Chloride 101 mmol/L (98-107); Glucose 90 mg/dL (74-106); Potassium 3.6 mmol/L (3.5-5.1); Sodium 140 mmol/L (136-145); Total Protein 7.4 g/dL (5.7-8.2)
[2024-10-29 05:26] LABS: Aspartate Aminotransferase 35 U/L (<34); Bilirubin, Total 0.2 mg/dL (0.2-1.0)
[2024-10-29 05:32] LABS: Hematocrit 28.5 % (36.0-46.0); Hemoglobin 9.4 g/dL (12.2-16.2); Mean Corpuscular Hemoglobin 30.8 pg (28.0-32.0); Mean Corpuscular Hgb Conc. 32.9 g/dL (32.0-36.0); Mean Corpuscular Volume 93.5 fL (80.0-100.0); Platelet Count (auto) 264 10^3/uL (140-450); Red Blood Cells 3.05 10^6/uL (4.0-5.20); Red Cell Distribution Width 19.7 % (11.8-14.3); White Blood Cell 11.8 10^3/uL (4.4-10.8)
[2024-10-29 05:37] LABS: Basophils % (manual) 0 (0.0-2.0); Blast Cells 0; Metamyelocytes % 0; Myelocytes % 0; Promyelocytes % 0; Reactive Lymphocytes 0
[2024-10-29 06:09] LABS: Band Neutrophils % (manual) 2; Eosinophils % (manual) 17 (0-7); Lymphocytes % (manual) 15 (10.0-50.0); Monocytes % (manual) 9 (0-12); Platelet Estimate Adequate
[2024-10-29 08:46] LABS: Base Excess -0.5 mmol/L (-2.0-3.0)
--- NOTE | 2024-10-29 14:42 | DVHPNRES ---
Progress Note Date Seen: Oct 29, 2024 Resident Creating Document: JUAN JOSÉ RAMOS RESIDENT Has the PT tested + for MRSA If YES, has PT been informed?: No Medical Necessity Reason Pt with a Central, PICC or Fol: No The following are medically ne: Central Line, Ivey Catheter Reason for ivey catheter: Strict I&O Medical Necessity Reason Patient is seen and examined with the nurse and RT at the bedside. Patient is awake follows command, pupils 3 and brisk. Positive cough and gag. She was on the following ventilation setting. AC rate 14 TV 450 fi02 30 PEEP 5 size 7.5 ET placement 24 at the lip. ABG this morning this was grossly unremarkable. Per RT evaluation, patient has met satisfactory criteria for extubation. Patient was extubated at 12: 45pm placed on Aerosol mist via mask without any challenges. At about 1:30pm patient had Large brown liquid BM. At about 3 pm, patient was found obtunded. RT was called to bedside and patient on Bipap. ABG pH 7.099 pCO2 98.3 pO2 98.1 HCO3 29.8 BE -1.8. Bipap setting ipap/ epap 20/10 at 35%fio2 Subjective Review of Systems unable to access as patient was not fully awake. Objective vital signs Vital Sign Date Time Temp Pulse Resp B/P (MAP) Pulse Ox O2 Delivery O2 Flow Rate FiO2 10/29/24 13:30 96.8 60 21 132/63 (86) 99 206.2 128/56 (80) 10/29/24 12:49 8.0 10/29/24 12:00 30 10/29/24 12:00 Mechanical Ventilator+ Total Intake and Output 10/28/24 10/28/24 10/29/24 15:00 23:00 07:00 Intake Total 171.0 ml 172.5 ml 535 ml Output Total 1500 ml 0 ml Balance 171.0 ml -1327.5 ml 535 ml medications Current Medications Medications Dose Ordered Sig/Maru Route Start Time Stop Time Status Last Admin Dose Admin Patient Own Medication 1 tab DAILY PO 10/18/24 10:00 UNV Sodium Chloride 10 ml Q8HR IV 10/18/24 14:00 10/29/24 13:11 10 ML Docusate Sodium 100 mg BIDPRN PRN PO 10/18/24 07:30 Acetaminophen 650 mg Q6HP PRN PO 10/18/24 07:30 Nitroglycerin 0.4 mg Q5MINP PRN SL 10/18/24 07:30 Ipratropium [place] 0.5 mg Q4HPRN PRN NEB 10/18/24 07:30 Albuterol 2.5 mg Q4HPRN PRN NEB 10/18/24 07:30 Levetiracetam 100 ml @ 400 mls/hr BID IV 10/18/24 10:00 10/29/24 10:17 400 MLS/HR Lorazepam 1 mg Q5MINP PRN IV 10/18/24 21:00 10/19/24 11:31 1 MG Enteral Nutritional Formula 1,000 ml 30ML/HR GT 10/20/24 10:15 10/22/24 04:51 1,000 ML Norepinephrine Bitartrate 250 ml @ 3.75 mls/hr Q24H IV 10/20/24 12:15 UNV Norepinephrine Bitartrate 250 ml @ 3.75 mls/hr Q24H IV 10/20/24 12:15 UNV Piperacillin Sod/ Tazobactam Sod 50 ml @ 12.5 mls/hr Q8HR IV 10/20/24 22:00 10/29/24 13:12 12.5 MLS/HR Pantoprazole Sodium 40 mg DAILY IV 10/21/24 10:00 10/29/24 10:17 40 MG Midazolam HCl 50 ml @ 1 mls/hr Q24H IV 10/20/24 12:45 Fentanyl Citrate 250 ml @ 2.5 mls/hr Q24H IV 10/20/24 12:45 10/21/24 22:56 7.5 MLS/HR Diagnostic Test (Pha) 1 strip ACHS 10/20/24 22:00 10/29/24 11:52 1 STRIP Insulin Human Regular ACHS SC 10/20/24 22:00 Dextrose 50 ml UD PRN IV 10/20/24 21:45 Vancomycin HCl 0 ml @ 0 mls/hr UD IV 10/21/24 12:00 Phenytoin Sodium 100 mg Q8HR IV 10/22/24 14:00 10/29/24 13:11 100 MG Nicardipine/ Sodium Chloride 200 ml @ 50 mls/hr Q4H IV 10/23/24 14:00 10/29/24 11:52 50 MLS/HR Metoprolol Tartrate 50 mg BID PO 10/24/24 12:15 10/29/24 10:18 50 MG Ondansetron HCl 4 mg Q6HPRN PRN IV 10/25/24 23:15 10/25/24 23:14 4 MG Potassium Chloride 100 ml @ 50 mls/hr Q2H IV 10/26/24 12:15 10/26/24 18:14 UNV Hydralazine HCl 50 mg Q8HR PO 10/28/24 14:00 10/29/24 13:13 50 MG Examination General Appearance: on bipap HEENT: Atraumatic, PERRLA, EOMI, Mucous membrane moist/pink Respiratory: tachypneic Cardiovascular: tachycardic, low blood pressure Abdominal: NO distention, no tenderness, bowel sounds present, no scars noted Extremities: No clubbing, No cyanosis, No edema, Normal pulses, No tenderness/swelling Skin: No rashes, No breakdown, No significant lesion Neuro: bed bound at the moment Psych/Mental Status: unable to assess laboratory and microbiology Laboratory Tests 10/29/24 04:40 Test 10/29/24 04:40 Range/Units Serum Glucose 90 74-106 mg/dL Microbiology Date/Time Source Procedure Growth Status 10/21/24 18:37 Blood Blood Culture - Final NO GROWTH AFTER 5 DAYS OF INCUBATION. Complete 10/20/24 15:00 Nose MRSA Screen - Final Complete 10/20/24 12:42 Sputum Gram Stain - Final Complete 10/20/24 12:42 Respiratory Culture - Final Klebsiella pneumoniae Citrobacter species Complete Problem List/Assessment/Plan Problem List/Assessment/Plan Assessment and plan Neurology Seizure disorder Altered mental status; Maybe due to encephalopathy ? metabolic ?post ictal History of CVA - CT 10/18/2024 : Generalized brain atrophy. Small vessel ischemic/degenerative changes - MRI 10/18/2024: No evidence of acute infarction, intracranial hemorrhage, mass effect or hydrocephalus. Moderate changes of chronic microvascular ischemic disease. - EEG 10/28/2024 IMPRESSION: This is a remarkably abnormal EEG, this EEG seen in severe cerebral dysfunction due to metabolic/hypoxic encephalopathy or medication effects, please correlate clinically - Keppra and Dilantin - Neurology evaluation on board Cardiovascular [id number] diastolic heart failure Severe tricuspid regurgitation Hypertensive emergency Cardiomegaly with mild congestion. Hypertensive heart disease off nicardipine drip dialysis plan for 10/28/2024 Respiratory COPD with exacerbation Severe pulmonary hypertension. Acute respiratory failure: on oxygen ?pneumonia with shock /septic: - xray: Multifocal airspace disease, not significantly changed since 10/13/202410/20:Cardiomegaly with pulmonary congestion and edema. Superimposed pneumonia cannot be excluded - cultures positive for KLEBSIELLA PNEUMONIA, CITROBACTER - ABG ( 10/29/2024 post extubation): PH: 7.099, Pco2: 98.3; Hco3: 29.8 - iv vanc, zosyn - extubated today 10/29/2025, but quickly desaturated, retained carbon dioxide -Plan: To remained Bipap over night and will reassess tomorrow. Genitourinary End-stage renal disease, on hemodialysis - dialysis via fistula next dialysis 10/30/2024 ( previous days 10/19; 10/21) - Nephrology following Hematology Normocytic anemia Anemia due to chronic disease ( ESRD) Metabolic Moderate protein malnutrition, BMI : 18.0 - tube feedings (Diet: Nepro with Carbs) IV access Femoral line: 10/20/[address] just in case patient may need to be reintubated A-line: 10/21/2024 Drip:(Fentanyl,Propofol OFF); 1mcg/min prn ( if absolutely needed) Antibiotics: Zosyn and vancomycin GI prophylaxis: protonix dvt prophylaxis: SCD Diet: tube feedings (Diet: Nepro with Carbs) Plan: Bipap setting ipap/epap 20/10 at 35%fio2; reassess in the morning. If not doing and needs to be reintubated, will do so. On HD at this time Advanced care discussed + Dr. Walker Critical care time 45 minutes Plan discussed with: Other My Orders My Orders Orders - JUAN JOSÉ RAMOS RESIDENT Procedure Category Date Status Time Extubate MELLY 10/29/24 In Process 12:23 Pt Request For Service PT 10/29/24 Logged 12:23 Oxygen Via Cool Mist RT 10/29/24 Transmitted Mask 12:49 Dietary Evaluation Review Comments: 1) Pro-stat 1 pk BID 2) Nephro-karl 1 tab daily 3) TF Nepro Carb Steady @ 25ml/hr along with current rate of propofol. TF @ goal volume along with Pro-stat & propofol provides 1381 kcal (100% energy needs) & 79gm protein (100% protein needs) Expected Outcomes/Goals: To meet >75% estimated needs Fu 2-3 days Date of Service: Oct 29, 2024 Billing Provider: BEST WALKER MD Common Visit Codes: NOT BILLABLE JUAN JOSÉ RAMOS RESIDENT Oct 29, 2024 14:42 BEST WALKER MD Nov 02, 2024 13:56
[2024-10-29] MEDS: SODIUM CHL 0.9% 1000 ML BAG XX ONE (15:15)
--- NOTE | 2024-10-29 15:15 | DVHPN2 ---
Progress Note - Dictate Date Seen: Oct 29, 2024 Has the PT tested + for MRSA If YES, has PT been informed?: No Medical Necessity Reason Pt with a Central, PICC or Fol: No The following are medically ne: Central Line, Ivey Catheter Reason for ivey catheter: Strict I&O Subjective Patient was extubated today vital signs Vital Sign Date Time Temp Pulse Resp B/P (MAP) Pulse Ox O2 Delivery O2 Flow Rate FiO2 10/29/24 13:30 96.8 60 21 132/63 (86) 99 206.2 128/56 (80) 10/29/24 12:49 8.0 10/29/24 12:00 30 10/29/24 12:00 Mechanical Ventilator+ Total Intake and Output 10/28/24 10/28/24 10/29/24 15:00 23:00 07:00 Intake Total 171.0 ml 172.5 ml 535 ml Output Total 1500 ml 0 ml Balance 171.0 ml -1327.5 ml 535 ml medications Current Medications Medications Dose Ordered Sig/Maru Route Start Time Stop Time Status Last Admin Dose Admin Patient Own Medication 1 tab DAILY PO 10/18/24 10:00 UNV Sodium Chloride 10 ml Q8HR IV 10/18/24 14:00 10/29/24 13:11 10 ML Docusate Sodium 100 mg BIDPRN PRN PO 10/18/24 07:30 Acetaminophen 650 mg Q6HP PRN PO 10/18/24 07:30 Nitroglycerin 0.4 mg Q5MINP PRN SL 10/18/24 07:30 Ipratropium [place] 0.5 mg Q4HPRN PRN NEB 10/18/24 07:30 Albuterol 2.5 mg Q4HPRN PRN NEB 10/18/24 07:30 Levetiracetam 100 ml @ 400 mls/hr BID IV 10/18/24 10:00 10/29/24 10:17 400 MLS/HR Lorazepam 1 mg Q5MINP PRN IV 10/18/24 21:00 10/19/24 11:31 1 MG Enteral Nutritional Formula 1,000 ml 30ML/HR GT 10/20/24 10:15 10/22/24 04:51 1,000 ML Norepinephrine Bitartrate 250 ml @ 3.75 mls/hr Q24H IV 10/20/24 12:15 UNV Norepinephrine Bitartrate 250 ml @ 3.75 mls/hr Q24H IV 10/20/24 12:15 UNV Piperacillin Sod/ Tazobactam Sod 50 ml @ 12.5 mls/hr Q8HR IV 10/20/24 22:00 10/29/24 13:12 12.5 MLS/HR Pantoprazole Sodium 40 mg DAILY IV 10/21/24 10:00 10/29/24 10:17 40 MG Midazolam HCl 50 ml @ 1 mls/hr Q24H IV 10/20/24 12:45 Fentanyl Citrate 250 ml @ 2.5 mls/hr Q24H IV 10/20/24 12:45 10/21/24 22:56 7.5 MLS/HR Diagnostic Test (Pha) 1 strip ACHS 10/20/24 22:00 10/29/24 11:52 1 STRIP Insulin Human Regular ACHS SC 10/20/24 22:00 Dextrose 50 ml UD PRN IV 10/20/24 21:45 Vancomycin HCl 0 ml @ 0 mls/hr UD IV 10/21/24 12:00 Phenytoin Sodium 100 mg Q8HR IV 10/22/24 14:00 10/29/24 13:11 100 MG Nicardipine/ Sodium Chloride 200 ml @ 50 mls/hr Q4H IV 10/23/24 14:00 10/29/24 11:52 50 MLS/HR Metoprolol Tartrate 50 mg BID PO 10/24/24 12:15 10/29/24 10:18 50 MG Ondansetron HCl 4 mg Q6HPRN PRN IV 10/25/24 23:15 10/25/24 23:14 4 MG Potassium Chloride 100 ml @ 50 mls/hr Q2H IV 10/26/24 12:15 10/26/24 18:14 UNV Hydralazine HCl 50 mg Q8HR PO 10/28/24 14:00 10/29/24 13:13 50 MG objective HEENT: ET tube in place Pulmonary: Diminished lung sounds on auscultation bilaterally Cardiovascular S1-S2, no S3 or S4 Abdomen: Bowel sounds positive, soft no rebound tenderness Skin: No rash Neurological: Alert, of sedation Right forearm AV fistula laboratory and microbiology Laboratory Tests 10/29/24 04:40 Test 10/29/24 04:40 Range/Units Serum Glucose 90 74-106 mg/dL Assessment/Plan Assessment: 1. ESRD 2. CHF, slightly overloaded 3. Hypertension 4. Seizure disorder 5. Severe pulmonary hypertension 6. COPD with exacerbation with superimposed pneumonia 7. Anemia of CKD 8. Metabolic encephalopathy Plan: Hemodialysis today for additional UF in view of extubation today IV antibiotics for pneumonia cardiology for management of pulmonary HTN Went off mechanical ventilation when possible Bennie as needed for goal hemoglobin 10-11 g per dL Dietary Evaluation Review Comments: 1) Pro-stat 1 pk BID 2) Nephro-karl 1 tab daily 3) TF Nepro Carb Steady @ 25ml/hr along with current rate of propofol. TF @ goal volume along with Pro-stat & propofol provides 1381 kcal (100% energy needs) & 79gm protein (100% protein needs) Expected Outcomes/Goals: To meet >75% estimated needs Fu 2-3 days Plan discussed with: Patient SHAMAR ORELLANA MD Oct 29, 2024 15:15
[2024-10-29] MEDS: IPRATROPIUM BROM 0.5 MG/2.5ML INH SOL NEB PRN (16:19)
[2024-10-29] MEDS: ALBUTEROL SULF 2.5 MG/0.5ML(0.5%) NEB SOLN NEB PRN (16:21)
[2024-10-29] MEDS: VANCOMYCIN 500mg/100mL 100 ML IV ONE (18:47)
[2024-10-29] MEDS: NOREPINEPHRINE 8 MG/250ML KIT 250 ML IV SCH (19:30)
--- NOTE | 2024-10-29 22:00 | DVHPN2 ---
Progress Note - Dictate Date Seen: Oct 29, 2024 Has the PT tested + for MRSA If YES, has PT been informed?: No Medical Necessity Reason Pt with a Central, PICC or Fol: No The following are medically ne: Central Line, Ivey Catheter Reason for ivey catheter: Strict I&O Subjective Ms. Wright is a 68 years old female with a history of hypertension, end-stage renal failure on hemodialysis, seizure disorder, goes she was brought to the [facility] on 10/18/2024 with a chief complaint of SOB, ALOC. I saw her on 09/13/2024 for encephalopathy I have seen and examined the patient, I have talked to her nurse, she is extubated, on BiPAP, she had hemodialysis today, oriented to person, place, she knows year and the month very tired Phenytoin, 09/13/2024: 4.9, 10/22/24: 11.3 (albumin: 2.9), 10/24/2024: 13.6, 10/26/2024: 15.7, 10/27/2024: 13.4, 10/28/2024: 13.9 WBC/HB/PLT/MCV, 09/12/2024: 4/9.9/160/86.7, 10/18/2024: 7.4/9.2/304/93.6 BUN/CR, 09/12/2024: 28/6.37, 10/18/2024: 29/7.25, 10/19/2024: 35/8.25 GFR, 10/19/2024: 5 TBI/AST/ALT/AP, 09/12/2024: 0.6/67/30/143 Lactic acid, 10/18/24: 1 TSH, 09/13/2024: 2.01 EEG, 09/14/24: A moderately abnormal EEG Chest x-ray, 09/11/2024: 1. Moderately severe cardiomegaly 2. Moderate bilateral interstitial changes CT head, 09/12/2024: 1. No acute intracranial hemorrhage 2. No CT findings of territorial ischemia CT head, 10/18/2024: 1. Generalized brain atrophy. 2. Small vessel ischemic/degenerative changes. 3. No acute intracranial hemorrhage, midline shift or mass effect. If symptoms persist, further evaluation with MRI is recommended. MRI head, 09/19/2024: No acute infarct, intracranial hemorrhage, mass effect, or hydrocephalus MRI head, 10/18/2024: No evidence of acute infarction, intracranial hemorrhage, mass effect or hydrocephalus. Moderate changes of chronic microvascular ischemic disease. vital signs Vital Sign Date Time Temp Pulse Resp B/P (MAP) Pulse Ox O2 Delivery O2 Flow Rate FiO2 10/29/24 20:29 74 94/57 100 Facial BiPAP Mask 30 10/29/24 20:15 94.6 24 202.3 10/29/24 12:49 8.0 Total Intake and Output 10/28/24 10/28/24 10/29/24 15:00 23:00 07:00 Intake Total 171.0 ml 172.5 ml 535 ml Output Total 1500 ml 0 ml Balance 171.0 ml -1327.5 ml 535 ml medications Current Medications Medications Dose Ordered Sig/Maru Route Start Time Stop Time Status Last Admin Dose Admin Patient Own Medication 1 tab DAILY PO 10/18/24 10:00 UNV Sodium Chloride 10 ml Q8HR IV 10/18/24 14:00 10/29/24 13:11 10 ML Docusate Sodium 100 mg BIDPRN PRN PO 10/18/24 07:30 Acetaminophen 650 mg Q6HP PRN PO 10/18/24 07:30 Nitroglycerin 0.4 mg Q5MINP PRN SL 10/18/24 07:30 Ipratropium [place] 0.5 mg Q4HPRN PRN NEB 10/18/24 07:30 10/29/24 16:19 0.5 MG Albuterol 2.5 mg Q4HPRN PRN NEB 10/18/24 07:30 10/29/24 16:21 2.5 MG Levetiracetam 100 ml @ 400 mls/hr BID IV 10/18/24 10:00 10/29/24 10:17 400 MLS/HR Lorazepam 1 mg Q5MINP PRN IV 10/18/24 21:00 10/19/24 11:31 1 MG Enteral Nutritional Formula 1,000 ml 30ML/HR GT 10/20/24 10:15 10/22/24 04:51 1,000 ML Norepinephrine Bitartrate 250 ml @ 3.75 mls/hr Q24H IV 10/20/24 12:15 UNV Norepinephrine Bitartrate 250 ml @ 3.75 mls/hr Q24H IV 10/20/24 12:15 UNV Piperacillin Sod/ Tazobactam Sod 50 ml @ 12.5 mls/hr Q8HR IV 10/20/24 22:00 10/29/24 13:12 12.5 MLS/HR Pantoprazole Sodium 40 mg DAILY IV 10/21/24 10:00 10/29/24 10:17 40 MG Midazolam HCl 50 ml @ 1 mls/hr Q24H IV 10/20/24 12:45 Diagnostic Test (Pha) 1 strip ACHS 10/20/24 22:00 10/29/24 17:41 1 STRIP Insulin Human Regular ACHS SC 10/20/24 22:00 Dextrose 50 ml UD PRN IV 10/20/24 21:45 Vancomycin HCl 0 ml @ 0 mls/hr UD IV 10/21/24 12:00 Phenytoin Sodium 100 mg Q8HR IV 10/22/24 14:00 10/29/24 13:11 100 MG Nicardipine/ Sodium Chloride 200 ml @ 50 mls/hr Q4H IV 10/23/24 14:00 10/29/24 11:52 50 MLS/HR Metoprolol Tartrate 50 mg BID PO 10/24/24 12:15 Hold 10/29/24 10:18 50 MG Ondansetron HCl 4 mg Q6HPRN PRN IV 10/25/24 23:15 10/25/24 23:14 4 MG Potassium Chloride 100 ml @ 50 mls/hr Q2H IV 10/26/24 12:15 10/26/24 18:14 UNV Hydralazine HCl 50 mg Q8HR PO 10/28/24 14:00 10/29/24 13:13 50 MG Norepinephrine Bitartrate 250 ml @ 1.875 mls/ hr Q24H IV 10/29/24 18:30 10/29/24 19:30 1.875 MLS/HR objective The patient is well-nourished and well-developed with no distress. MENTAL STATUS: Subjective Speech and language: On BiPAP, CRANIAL NERVES: Pupils are equal round and reactive to light briskly, normal external eye movement, normal sensation and motor examination in the lateral trigeminal nerve distribution, no facial weakness. SENSATION: Okay to light touch and pinprick MOTOR: Normal tone in the upper and lower extremity. Normal muscle bulk. No fasciculations. She moves her arms. REFLEXES: Deep tendon reflexes are symmetrical. No pathological reflexes. CEREBELLAR/COORDINATION: Deferred GAIT/STATION: deferred. laboratory and microbiology Laboratory Tests 10/29/24 04:40 Test 10/29/24 04:40 Range/Units Serum Glucose 90 74-106 mg/dL Problem List Acute respiratory failure, improving Altered mental status, improving Metabolic encephalopathy Hypoxic encephalopathy ? Seizure activity on 10/19/24 Visual hallucination secondary to metabolic encephalopathy Seizure disorder, according to description she has Grand mal seizure Partial complex seizure End-stage renal failure on hemodialysis Assessment/Plan Monitoring Supportive treatment EEG ICU care Stabilize vitals Respiratory support/BiPAP Dilantin 100 mg IV Tid. Keppra 500 mg IV b.i.d. (ESRF) Ativan for seizure breakthrough Nephrology Re: Kidney failure DVT prophylaxis More recommendation per clinical course This medical document was created using an electronic medical record system with [employer] dictation system. Although this document has been carefully reviewed, there may still be some phonetic and typographical errors. These areas are purely typographical due to imperfections of the software programs, and do not reflect any compromise in the patient's medical care Prognosis poor Dietary Evaluation Review Comments: 1) Pro-stat 1 pk BID 2) Nephro-karl 1 tab daily 3) TF Nepro Carb Steady @ 25ml/hr along with current rate of propofol. TF @ goal volume along with Pro-stat & propofol provides 1381 kcal (100% energy needs) & 79gm protein (100% protein needs) Expected Outcomes/Goals: To meet >75% estimated needs Fu 2-3 days Plan discussed with: Other KIT GRISSOM MD Oct 29, 2024 22:00
[2024-10-29 22:08] LABS: Base Excess -2.8 mmol/L (-2.0-3.0)
[2024-10-29] MEDS: EPOETIN ALFA-EPBX 10,000 UNIT/1ML VIAL SC ONE (22:15)
[2024-10-30] VITALS (103 sets, daily range): BP systolic 104–182; BP diastolic 48–97; PULSE 59–86; RESP 14–28; TEMP 70–100.4; O2SAT 99–100
[2024-10-30] MEDS: DEXTROSE (50%) 50ML SYRG IV PRN (05:32)
[2024-10-30 06:13] LABS: Chloride 100 mmol/L (98-107); Potassium 3.7 mmol/L (3.5-5.1); Sodium 140 mmol/L (136-145)
[2024-10-30 06:14] LABS: Anion Gap 14 (5-15); Calcium 9.8 mg/dL (8.7-10.4); Carbon Dioxide 26 mmol/L (20-31)
[2024-10-30 06:16] LABS: Hematocrit 30.2 % (36.0-46.0); Mean Corpuscular Hemoglobin 31.1 pg (28.0-32.0); Mean Corpuscular Hgb Conc. 33.3 g/dL (32.0-36.0); Mean Corpuscular Volume 93.3 fL (80.0-100.0); Platelet Count (auto) 217 10^3/uL (140-450); Red Blood Cells 3.24 10^6/uL (4.0-5.20); Red Cell Distribution Width 19.7 % (11.8-14.3); White Blood Cell 9.6 10^3/uL (4.4-10.8)
[2024-10-30 06:18] LABS: Basophils % (manual) 0 (0.0-2.0); Blast Cells 0; Metamyelocytes % 0; Myelocytes % 0; Promyelocytes % 0; Reactive Lymphocytes 0
[2024-10-30 06:25] LABS: Blood Urea Nitrogen 9 mg/dL (9-23); Glucose 49 mg/dL (74-106)
[2024-10-30 07:06] LABS: Band Neutrophils % (manual) 3; Eosinophils % (manual) 11 (0-7); Lymphocytes % (manual) 12 (10.0-50.0); Monocytes % (manual) 8 (0-12); Platelet Estimate Adequate; Smudge Cells 1 /100 WBC
[2024-10-30 07:07] LABS: Base Excess 1.2 mmol/L (-2.0-3.0)
--- NOTE | 2024-10-30 10:52 | DVHPN2 ---
Assessment/Plan Assessment/Plan ICU note Covering extubated, on bipap overnight, now on 3L NC comfortable. weak cough. bedside swallow. dc a line. Physical exam AOx2 PERRLA weak cough coarse breath sounds s1 s2 rrr abdomen soft nontender no le edema dry skin Labs ekg imaging reviewed Assessment and plan acute on chronic diastolic heart failure pHTN? hypertension acute metabolic encephalopathy ?seizure? acute on chronic hypoxic RF req mechanical vent COPD group E with exacerbation ESRD on HD protein calorie malnutrition pneumonia gp gn maintain spo2> 96 c/w NGT until swallow eval c/w Zosyn, vanc c/w Keppra dilantin hd per nephro resume po bp meds diet npo ex meds dvt ppx heparin gi ppx protonix condition critical prognosis poor full code critical care time 35 minutes Plan discussed with: Patient Date of Service: Oct 30, 2024 Billing Provider: TY OCHOA MD Common Visit Codes: [id number] CARE 30-74 MIN TY OCHOA MD Oct 30, 2024 10:51
--- NOTE | 2024-10-30 15:02 | DVHPN2 ---
Progress Note - Dictate Date Seen: Oct 30, 2024 Has the PT tested + for MRSA If YES, has PT been informed?: No Medical Necessity Reason Pt with a Central, PICC or Fol: No The following are medically ne: Central Line, Ivey Catheter Reason for ivey catheter: Strict I&O vital signs Vital Sign Date Time Temp Pulse Resp B/P (MAP) Pulse Ox O2 Delivery O2 Flow Rate FiO2 10/30/24 14:00 22 100 Nasal Cannula* 2 28 10/30/24 12:00 74 10/30/24 12:00 97.7 173/85 (114) 207.9 Total Intake and Output 10/29/24 10/29/24 10/30/24 15:00 23:00 07:00 Intake Total 597.5 ml 151.25 ml 79.375 ml Output Total 300 ml Balance 597.5 ml -148.75 ml 79.375 ml medications Current Medications Medications Dose Ordered Sig/Maru Route Start Time Stop Time Status Last Admin Dose Admin Patient Own Medication 1 tab DAILY PO 10/18/24 10:00 UNV Sodium Chloride 10 ml Q8HR IV 10/18/24 14:00 10/30/24 06:01 10 ML Docusate Sodium 100 mg BIDPRN PRN PO 10/18/24 07:30 Acetaminophen 650 mg Q6HP PRN PO 10/18/24 07:30 Nitroglycerin 0.4 mg Q5MINP PRN SL 10/18/24 07:30 Ipratropium [place] 0.5 mg Q4HPRN PRN NEB 10/18/24 07:30 10/29/24 16:19 0.5 MG Albuterol 2.5 mg Q4HPRN PRN NEB 10/18/24 07:30 10/29/24 16:21 2.5 MG Levetiracetam 100 ml @ 400 mls/hr BID IV 10/18/24 10:00 10/30/24 10:03 400 MLS/HR Lorazepam 1 mg Q5MINP PRN IV 10/18/24 21:00 10/19/24 11:31 1 MG Enteral Nutritional Formula 1,000 ml 30ML/HR GT 10/20/24 10:15 10/30/24 11:23 1,000 ML Norepinephrine Bitartrate 250 ml @ 3.75 mls/hr Q24H IV 10/20/24 12:15 UNV Norepinephrine Bitartrate 250 ml @ 3.75 mls/hr Q24H IV 10/20/24 12:15 UNV Piperacillin Sod/ Tazobactam Sod 50 ml @ 12.5 mls/hr Q8HR IV 10/20/24 22:00 10/30/24 06:00 12.5 MLS/HR Pantoprazole Sodium 40 mg DAILY IV 10/21/24 10:00 10/30/24 10:02 40 MG Midazolam HCl 50 ml @ 1 mls/hr Q24H IV 10/20/24 12:45 Diagnostic Test (Pha) 1 strip ACHS 10/20/24 22:00 10/30/24 11:30 1 STRIP Insulin Human Regular ACHS SC 10/20/24 22:00 Dextrose 50 ml UD PRN IV 10/20/24 21:45 10/30/24 05:32 50 ML Vancomycin HCl 0 ml @ 0 mls/hr UD IV 10/21/24 12:00 Phenytoin Sodium 100 mg Q8HR IV 10/22/24 14:00 10/30/24 06:00 100 MG Nicardipine/ Sodium Chloride 200 ml @ 50 mls/hr Q4H IV 10/23/24 14:00 10/29/24 11:52 50 MLS/HR Metoprolol Tartrate 50 mg BID PO 10/24/24 12:15 Hold 10/29/24 10:18 50 MG Ondansetron HCl 4 mg Q6HPRN PRN IV 10/25/24 23:15 10/25/24 23:14 4 MG Potassium Chloride 100 ml @ 50 mls/hr Q2H IV 10/26/24 12:15 10/26/24 18:14 UNV Hydralazine HCl 50 mg Q8HR PO 10/28/24 14:00 10/29/24 13:13 50 MG Norepinephrine Bitartrate 250 ml @ 1.875 mls/ hr Q24H IV 10/29/24 18:30 10/29/24 19:30 1.875 MLS/HR laboratory and microbiology Laboratory Tests 10/30/24 05:30 Test 10/30/24 05:30 Range/Units Serum Glucose 49 *L 74-106 mg/dL Assessment/Plan Impression Acute hypoxemic respiratory failure Acute COPD exacerbation ESRD on HD Pneumonia CHF Patient seen and examined in BEBETO Events S/p extubation yesterday Initially required bipap Improved overnight with hemodialysis Transitioned to 2 liters nasal cannula No distress Labs and imaging reviewed ABG reviewed Management Supplemental oxygen Titrate to maintain sats 90% or above Incentive spirometry Aspiration precautions Continue antibiotics F/u cultures Bronchodilators Monitor renal function HD as per nephrology Management deferred Monitor electrolytes Supplement as needed DVT prophylaxis Critical care time 35 minutes Dietary Evaluation Review Comments: 1) Pro-stat 1 pk BID 2) Nephro-karl 1 tab daily 3) TF Nepro Carb Steady @ 25ml/hr along with current rate of propofol. TF @ goal volume along with Pro-stat & propofol provides 1381 kcal (100% energy needs) & 79gm protein (100% protein needs) Expected Outcomes/Goals: To meet >75% estimated needs Fu 2-3 days Plan discussed with: Patient BEST BRANNON MD Oct 30, 2024 15:02
--- NOTE | 2024-10-30 15:11 | DVHPN2 ---
Progress Note - Dictate Date Seen: Oct 30, 2024 Has the PT tested + for MRSA If YES, has PT been informed?: No Medical Necessity Reason Pt with a Central, PICC or Fol: No The following are medically ne: Central Line, Ivey Catheter Reason for ivey catheter: Strict I&O Subjective Patient was extubated yesterday has remained alert since then with some cough vital signs Vital Sign Date Time Temp Pulse Resp B/P (MAP) Pulse Ox O2 Delivery O2 Flow Rate FiO2 10/30/24 14:00 22 100 Nasal Cannula* 2 28 10/30/24 12:00 74 10/30/24 12:00 97.7 173/85 (114) 207.9 Total Intake and Output 10/29/24 10/29/24 10/30/24 15:00 23:00 07:00 Intake Total 597.5 ml 151.25 ml 79.375 ml Output Total 300 ml Balance 597.5 ml -148.75 ml 79.375 ml medications Current Medications Medications Dose Ordered Sig/Maur Route Start Time Stop Time Status Last Admin Dose Admin Patient Own Medication 1 tab DAILY PO 10/18/24 10:00 UNV Sodium Chloride 10 ml Q8HR IV 10/18/24 14:00 10/30/24 06:01 10 ML Docusate Sodium 100 mg BIDPRN PRN PO 10/18/24 07:30 Acetaminophen 650 mg Q6HP PRN PO 10/18/24 07:30 Nitroglycerin 0.4 mg Q5MINP PRN SL 10/18/24 07:30 Ipratropium [place] 0.5 mg Q4HPRN PRN NEB 10/18/24 07:30 10/29/24 16:19 0.5 MG Albuterol 2.5 mg Q4HPRN PRN NEB 10/18/24 07:30 10/29/24 16:21 2.5 MG Levetiracetam 100 ml @ 400 mls/hr BID IV 10/18/24 10:00 10/30/24 10:03 400 MLS/HR Lorazepam 1 mg Q5MINP PRN IV 10/18/24 21:00 10/19/24 11:31 1 MG Enteral Nutritional Formula 1,000 ml 30ML/HR GT 10/20/24 10:15 10/30/24 11:23 1,000 ML Norepinephrine Bitartrate 250 ml @ 3.75 mls/hr Q24H IV 10/20/24 12:15 UNV Norepinephrine Bitartrate 250 ml @ 3.75 mls/hr Q24H IV 10/20/24 12:15 UNV Piperacillin Sod/ Tazobactam Sod 50 ml @ 12.5 mls/hr Q8HR IV 10/20/24 22:00 10/30/24 06:00 12.5 MLS/HR Pantoprazole Sodium 40 mg DAILY IV 10/21/24 10:00 10/30/24 10:02 40 MG Midazolam HCl 50 ml @ 1 mls/hr Q24H IV 10/20/24 12:45 Diagnostic Test (Pha) 1 strip ACHS 10/20/24 22:00 10/30/24 11:30 1 STRIP Insulin Human Regular ACHS SC 10/20/24 22:00 Dextrose 50 ml UD PRN IV 10/20/24 21:45 10/30/24 05:32 50 ML Vancomycin HCl 0 ml @ 0 mls/hr UD IV 10/21/24 12:00 Phenytoin Sodium 100 mg Q8HR IV 10/22/24 14:00 10/30/24 06:00 100 MG Nicardipine/ Sodium Chloride 200 ml @ 50 mls/hr Q4H IV 10/23/24 14:00 10/29/24 11:52 50 MLS/HR Metoprolol Tartrate 50 mg BID PO 10/24/24 12:15 Hold 10/29/24 10:18 50 MG Ondansetron HCl 4 mg Q6HPRN PRN IV 10/25/24 23:15 10/25/24 23:14 4 MG Potassium Chloride 100 ml @ 50 mls/hr Q2H IV 10/26/24 12:15 10/26/24 18:14 UNV Hydralazine HCl 50 mg Q8HR PO 10/28/24 14:00 10/29/24 13:13 50 MG Norepinephrine Bitartrate 250 ml @ 1.875 mls/ hr Q24H IV 10/29/24 18:30 10/29/24 19:30 1.875 MLS/HR objective HEENT: Extubated, no oral lesions Pulmonary: Diminished lung sounds on auscultation bilaterally Cardiovascular S1-S2, no S3 or S4 Abdomen: Bowel sounds positive, soft no rebound tenderness Skin: No rash Neurological: Alert, Right forearm AV fistula laboratory and microbiology Laboratory Tests 10/30/24 05:30 Test 10/30/24 05:30 Range/Units Serum Glucose 49 *L 74-106 mg/dL Assessment/Plan Assessment: 1. ESRD hemodialysis 2. CHF, slightly overloaded 3. Hypertension 4. Seizure disorder 5. Severe pulmonary hypertension 6. COPD with exacerbation with superimposed pneumonia 7. Anemia of CKD 8. Metabolic encephalopathy 9. Hypoglycemia Plan: Hemodialysis tomorrow to maintain euvolemia and to provide clearance IV antibiotics for pneumonia cardiology for management of pulmonary HTN Bennie as needed for goal hemoglobin 10-11 g per dL Thank you very much Dietary Evaluation Review Comments: 1) Pro-stat 1 pk BID 2) Nephro-karl 1 tab daily 3) TF Nepro Carb Steady @ 25ml/hr along with current rate of propofol. TF @ goal volume along with Pro-stat & propofol provides 1381 kcal (100% energy needs) & 79gm protein (100% protein needs) Expected Outcomes/Goals: To meet >75% estimated needs Fu 2-3 days Plan discussed with: Patient, Other (Two of the daughters were at bedside) SHAMAR ORELLANA MD Oct 30, 2024 15:11
[2024-10-31] VITALS (97 sets, daily range): BP systolic 77–167; BP diastolic 15–83; PULSE 68–100; RESP 12–29; TEMP 96.6–98.8; O2SAT 85–100
[2024-10-31 06:27] LABS: Hematocrit 29.6 % (36.0-46.0); Hemoglobin 9.7 g/dL (12.2-16.2); Mean Corpuscular Hemoglobin 30.6 pg (28.0-32.0); Mean Corpuscular Hgb Conc. 32.7 g/dL (32.0-36.0); Mean Corpuscular Volume 93.5 fL (80.0-100.0); Platelet Count (auto) 252 10^3/uL (140-450); Red Blood Cells 3.16 10^6/uL (4.0-5.20); Red Cell Distribution Width 19.1 % (11.8-14.3); White Blood Cell 11.3 10^3/uL (4.4-10.8)
[2024-10-31 06:36] LABS: Anion Gap 12 (5-15); Carbon Dioxide 28 mmol/L (20-31); Chloride 103 mmol/L (98-107); Potassium 4.1 mmol/L (3.5-5.1); Sodium 143 mmol/L (136-145)
[2024-10-31 06:38] LABS: Calcium 11.1 mg/dL (8.7-10.4)
[2024-10-31 06:42] LABS: Blood Urea Nitrogen 14 mg/dL (9-23); Glucose 83 mg/dL (74-106)
[2024-10-31 07:00] LABS: Basophils % (manual) 0 (0.0-2.0); Blast Cells 0; Metamyelocytes % 0; Myelocytes % 0; Promyelocytes % 0; Reactive Lymphocytes 0
[2024-10-31] MEDS: SODIUM CHL 0.9% 1000 ML BAG XX ONE (07:00)
[2024-10-31 07:29] LABS: Base Excess 1.4 mmol/L (-2.0-3.0)
[2024-10-31 08:04] LABS: Band Neutrophils % (manual) 1; Eosinophils % (manual) 15 (0-7); Lymphocytes % (manual) 31 (10.0-50.0); Monocytes % (manual) 8 (0-12); Platelet Estimate Adequate
--- NOTE | 2024-10-31 15:10 | DVHPN2 ---
Progress Note - Dictate Date Seen: Oct 31, 2024 Has the PT tested + for MRSA If YES, has PT been informed?: No Medical Necessity Reason Pt with a Central, PICC or Fol: No The following are medically ne: Central Line, Ivey Catheter Reason for ivey catheter: Strict I&O Subjective Patient is sleeping comfortably vital signs Vital Sign Date Time Temp Pulse Resp B/P (MAP) Pulse Ox O2 Delivery O2 Flow Rate FiO2 10/31/24 14:37 144/69 10/31/24 12:00 97.9 92 25 98 97.9 10/31/24 10:00 Nasal Cannula* 2 28 Total Intake and Output 10/30/24 10/30/24 10/31/24 15:00 23:00 07:00 Intake Total 137.5 ml 247.5 ml 365.0 ml Output Total 300 ml 0 ml Balance 137.5 ml -52.5 ml 365.0 ml medications Current Medications Medications Dose Ordered Sig/Maru Route Start Time Stop Time Status Last Admin Dose Admin Patient Own Medication 1 tab DAILY PO 10/18/24 10:00 UNV Sodium Chloride 10 ml Q8HR IV 10/18/24 14:00 10/31/24 14:37 10 ML Docusate Sodium 100 mg BIDPRN PRN PO 10/18/24 07:30 Acetaminophen 650 mg Q6HP PRN PO 10/18/24 07:30 Nitroglycerin 0.4 mg Q5MINP PRN SL 10/18/24 07:30 Ipratropium [place] 0.5 mg Q4HPRN PRN NEB 10/18/24 07:30 10/30/24 20:26 0.5 MG Albuterol 2.5 mg Q4HPRN PRN NEB 10/18/24 07:30 10/30/24 20:26 2.5 MG Levetiracetam 100 ml @ 400 mls/hr BID IV 10/18/24 10:00 10/31/24 10:39 400 MLS/HR Lorazepam 1 mg Q5MINP PRN IV 10/18/24 21:00 10/19/24 11:31 1 MG Enteral Nutritional Formula 1,000 ml 30ML/HR GT 10/20/24 10:15 10/30/24 11:23 1,000 ML Norepinephrine Bitartrate 250 ml @ 3.75 mls/hr Q24H IV 10/20/24 12:15 UNV Norepinephrine Bitartrate 250 ml @ 3.75 mls/hr Q24H IV 10/20/24 12:15 UNV Piperacillin Sod/ Tazobactam Sod 50 ml @ 12.5 mls/hr Q8HR IV 10/20/24 22:00 10/31/24 14:38 12.5 MLS/HR Pantoprazole Sodium 40 mg DAILY IV 10/21/24 10:00 10/31/24 10:39 40 MG Midazolam HCl 50 ml @ 1 mls/hr Q24H IV 10/20/24 12:45 Diagnostic Test (Pha) 1 strip ACHS 10/20/24 22:00 10/31/24 11:49 1 STRIP Insulin Human Regular ACHS SC 10/20/24 22:00 Dextrose 50 ml UD PRN IV 10/20/24 21:45 10/30/24 05:32 50 ML Vancomycin HCl 0 ml @ 0 mls/hr UD IV 10/21/24 12:00 Phenytoin Sodium 100 mg Q8HR IV 10/22/24 14:00 10/31/24 14:36 100 MG Nicardipine/ Sodium Chloride 200 ml @ 50 mls/hr Q4H IV 10/23/24 14:00 10/29/24 11:52 50 MLS/HR Metoprolol Tartrate 50 mg BID PO 10/24/24 12:15 Hold 10/29/24 10:18 50 MG Ondansetron HCl 4 mg Q6HPRN PRN IV 10/25/24 23:15 10/25/24 23:14 4 MG Potassium Chloride 100 ml @ 50 mls/hr Q2H IV 10/26/24 12:15 10/26/24 18:14 UNV Hydralazine HCl 50 mg Q8HR PO 10/28/24 14:00 10/31/24 14:37 50 MG Norepinephrine Bitartrate 250 ml @ 1.875 mls/ hr Q24H IV 10/29/24 18:30 10/29/24 19:30 1.875 MLS/HR objective HEENT: No oral lesions Pulmonary: Diminished lung sounds on auscultation bilaterally Cardiovascular S1-S2, no S3 or S4 Abdomen: Bowel sounds positive, soft no rebound tenderness Skin: No rash Neurological: Alert, Right forearm AV fistula laboratory and microbiology Laboratory Tests 10/31/24 04:55 Test 10/31/24 04:55 Range/Units Serum Glucose 83 74-106 mg/dL Assessment/Plan Assessment: 1. ESRD hemodialysis 2. CHF, slightly overloaded 3. Hypertension 4. Seizure disorder 5. Severe pulmonary hypertension 6. COPD with exacerbation with superimposed pneumonia 7. Anemia of CKD 8. Metabolic encephalopathy 9. Hypoglycemia Plan: Continue HD TTS unless otherwise specified IV antibiotics for pneumonia Patient is receiving Keppra Wean off oxygen as tolerated cardiology for management of pulmonary HTN Bennie as needed for goal hemoglobin 10-11 g per dL Thank you very much Dietary Evaluation Review Comments: 1) Pro-stat 1 pk BID 2) Nephro-karl 1 tab daily 3) TF Nepro Carb Steady @ 25ml/hr along with current rate of propofol. TF @ goal volume along with Pro-stat & propofol provides 1381 kcal (100% energy needs) & 79gm protein (100% protein needs) Expected Outcomes/Goals: To meet >75% estimated needs Fu 2-3 days Plan discussed with: Patient SHAMAR ORELLANA MD Oct 31, 2024 15:10
--- NOTE | 2024-10-31 15:57 | DVHPN2 ---
Assessment/Plan Assessment/Plan ICU note Covering pending transportation project manager eval. stable to transfer to telemetry. HD per renal Physical exam AOx2 PERRLA weak cough coarse breath sounds s1 s2 rrr abdomen soft nontender no le edema dry skin Labs ekg imaging reviewed Assessment and plan acute on chronic diastolic heart failure pHTN? hypertension acute metabolic encephalopathy ?seizure? acute on chronic hypoxic RF req mechanical vent COPD group E with exacerbation ESRD on HD protein calorie malnutrition pneumonia gp gn maintain spo2> 96 c/w NGT until swallow eval c/w Zosyn, vanc c/w Keppra dilantin hd per nephro resume po bp meds transportation project manager diet npo ex meds dvt ppx heparin gi ppx protonix condition critical prognosis poor full code critical care time 35 minutes Plan discussed with: Patient My Orders Orders - TY OCHOA MD Procedure Category Date Status Time Transfer Orders XFER 10/31/24 Transmitted 15:00 Date of Service: Oct 31, 2024 Billing Provider: TY OCHOA MD Common Visit Codes: [id number] INP/OBS CARE(HIGH) TY OCHOA MD Oct 31, 2024 15:57
--- NOTE | 2024-10-31 16:12 | DVHPN2 ---
Progress Note - Dictate Date Seen: Oct 31, 2024 Has the PT tested + for MRSA If YES, has PT been informed?: No Medical Necessity Reason Pt with a Central, PICC or Fol: No The following are medically ne: Central Line, Ivey Catheter Reason for ivey catheter: Strict I&O vital signs Vital Sign Date Time Temp Pulse Resp B/P (MAP) Pulse Ox O2 Delivery O2 Flow Rate FiO2 10/31/24 16:00 92 18 10/31/24 15:30 98.8 86 98.8 10/31/24 14:00 Nasal Cannula* 2 28 Total Intake and Output 10/30/24 10/30/24 10/31/24 15:00 23:00 07:00 Intake Total 137.5 ml 247.5 ml 365.0 ml Output Total 300 ml 0 ml Balance 137.5 ml -52.5 ml 365.0 ml medications Current Medications Medications Dose Ordered Sig/Maru Route Start Time Stop Time Status Last Admin Dose Admin Patient Own Medication 1 tab DAILY PO 10/18/24 10:00 UNV Sodium Chloride 10 ml Q8HR IV 10/18/24 14:00 10/31/24 14:37 10 ML Docusate Sodium 100 mg BIDPRN PRN PO 10/18/24 07:30 Acetaminophen 650 mg Q6HP PRN PO 10/18/24 07:30 Nitroglycerin 0.4 mg Q5MINP PRN SL 10/18/24 07:30 Ipratropium [place] 0.5 mg Q4HPRN PRN NEB 10/18/24 07:30 10/30/24 20:26 0.5 MG Albuterol 2.5 mg Q4HPRN PRN NEB 10/18/24 07:30 10/30/24 20:26 2.5 MG Levetiracetam 100 ml @ 400 mls/hr BID IV 10/18/24 10:00 10/31/24 10:39 400 MLS/HR Lorazepam 1 mg Q5MINP PRN IV 10/18/24 21:00 10/19/24 11:31 1 MG Enteral Nutritional Formula 1,000 ml 30ML/HR GT 10/20/24 10:15 10/30/24 11:23 1,000 ML Norepinephrine Bitartrate 250 ml @ 3.75 mls/hr Q24H IV 10/20/24 12:15 UNV Norepinephrine Bitartrate 250 ml @ 3.75 mls/hr Q24H IV 10/20/24 12:15 UNV Piperacillin Sod/ Tazobactam Sod 50 ml @ 12.5 mls/hr Q8HR IV 10/20/24 22:00 10/31/24 14:38 12.5 MLS/HR Pantoprazole Sodium 40 mg DAILY IV 10/21/24 10:00 10/31/24 10:39 40 MG Midazolam HCl 50 ml @ 1 mls/hr Q24H IV 10/20/24 12:45 Diagnostic Test (Pha) 1 strip ACHS 10/20/24 22:00 10/31/24 11:49 1 STRIP Insulin Human Regular ACHS SC 10/20/24 22:00 Dextrose 50 ml UD PRN IV 10/20/24 21:45 10/30/24 05:32 50 ML Vancomycin HCl 0 ml @ 0 mls/hr UD IV 10/21/24 12:00 Phenytoin Sodium 100 mg Q8HR IV 10/22/24 14:00 10/31/24 14:36 100 MG Nicardipine/ Sodium Chloride 200 ml @ 50 mls/hr Q4H IV 10/23/24 14:00 10/29/24 11:52 50 MLS/HR Metoprolol Tartrate 50 mg BID PO 10/24/24 12:15 Hold 10/29/24 10:18 50 MG Ondansetron HCl 4 mg Q6HPRN PRN IV 10/25/24 23:15 10/25/24 23:14 4 MG Potassium Chloride 100 ml @ 50 mls/hr Q2H IV 10/26/24 12:15 10/26/24 18:14 UNV Hydralazine HCl 50 mg Q8HR PO 10/28/24 14:00 10/31/24 14:37 50 MG Norepinephrine Bitartrate 250 ml @ 1.875 mls/ hr Q24H IV 10/29/24 18:30 10/29/24 19:30 1.875 MLS/HR laboratory and microbiology Laboratory Tests 10/31/24 04:55 Test 10/31/24 04:55 Range/Units Serum Glucose 83 74-106 mg/dL Assessment/Plan Impression Acute hypoxemic respiratory failure Acute COPD exacerbation ESRD on HD Pneumonia CHF Patient seen and examined in BEBET[facility] Events S/p extubation Low oxygen requirements On 2 liters nasal cannula Following commands Labs and imaging reviewed ABG reviewed Management Supplemental oxygen Titrate to maintain sats 90% or above Incentive spirometry Aspiration precautions Continue antibiotics F/u cultures Bronchodilators Monitor renal function HD as per nephrology Management deferred Monitor electrolytes Supplement as needed Okay top downgrade from pulmonary standpoint DVT prophylaxis Critical care time 35 minutes Dietary Evaluation Review Comments: 1) Pro-stat 1 pk BID 2) Nephro-karl 1 tab daily 3) TF Nepro Carb Steady @ 25ml/hr along with current rate of propofol. TF @ goal volume along with Pro-stat & propofol provides 1381 kcal (100% energy needs) & 79gm protein (100% protein needs) Expected Outcomes/Goals: To meet >75% estimated needs Fu 2-3 days Plan discussed with: Patient BEST BRANNON MD Oct 31, 2024 16:12
[2024-10-31] MEDS: EPOETIN ALFA-EPBX 4,000 UNIT/ML VIAL SC ONE (22:42)
--- NOTE | 2024-10-31 23:38 | DVHPN2 ---
Progress Note - Dictate Date Seen: Oct 31, 2024 Has the PT tested + for MRSA If YES, has PT been informed?: No Medical Necessity Reason Pt with a Central, PICC or Fol: No The following are medically ne: Central Line, Ivey Catheter Reason for ivey catheter: Strict I&O Subjective Ms. Wright is a 68 years old female with a history of hypertension, end-stage renal failure on hemodialysis, seizure disorder, goes she was brought to the [facility] on 10/18/2024 with a chief complaint of SOB, ALOC. I saw her on 09/13/2024 for encephalopathy I have seen and examined the patient, I have talked to her nurse, she is doing fine, awake, oriented x3, she follows, but she tries to pull the lines sometimes No seizure Phenytoin, 09/13/2024: 4.9, 10/22/24: 11.3 (albumin: 2.9), 10/24/2024: 13.6, 10/26/2024: 15.7, 10/27/2024: 13.4, 10/28/2024: 13.9, 10/31/2024: 16.5 WBC/HB/PLT/MCV, 09/12/2024: 4/9.9/160/86.7, 10/18/2024: 7.4/9.2/304/93.6 BUN/CR, 09/12/2024: 28/6.37, 10/18/2024: 29/7.25, 10/19/2024: 35/8.25 GFR, 10/19/2024: 5 TBI/AST/ALT/AP, 09/12/2024: 0.6/67/30/143 Lactic acid, 10/18/24: 1 TSH, 09/13/2024: 2.01 EEG, 09/14/24: A moderately abnormal EEG Chest x-ray, 09/11/2024: 1. Moderately severe cardiomegaly 2. Moderate bilateral interstitial changes CT head, 09/12/2024: 1. No acute intracranial hemorrhage 2. No CT findings of territorial ischemia CT head, 10/18/2024: 1. Generalized brain atrophy. 2. Small vessel ischemic/degenerative changes. 3. No acute intracranial hemorrhage, midline shift or mass effect. If symptoms persist, further evaluation with MRI is recommended. MRI head, 09/19/2024: No acute infarct, intracranial hemorrhage, mass effect, or hydrocephalus MRI head, 10/18/2024: No evidence of acute infarction, intracranial hemorrhage, mass effect or hydrocephalus. Moderate changes of chronic microvascular ischemic disease. vital signs Vital Sign Date Time Temp Pulse Resp B/P (MAP) Pulse Ox O2 Delivery O2 Flow Rate FiO2 10/31/24 22:03 158/77 10/31/24 22:03 95 10/31/24 18:45 24 99 10/31/24 18:00 Nasal Cannula* 2 28 10/31/24 16:00 98.8 98.8 Total Intake and Output 10/30/24 10/30/24 10/31/24 15:00 23:00 07:00 Intake Total 137.5 ml 247.5 ml 365.0 ml Output Total 300 ml 0 ml Balance 137.5 ml -52.5 ml 365.0 ml medications Current Medications Medications Dose Ordered Sig/Maru Route Start Time Stop Time Status Last Admin Dose Admin Patient Own Medication 1 tab DAILY PO 10/18/24 10:00 UNV Sodium Chloride 10 ml Q8HR IV 10/18/24 14:00 10/31/24 22:03 10 ML Docusate Sodium 100 mg BIDPRN PRN PO 10/18/24 07:30 Acetaminophen 650 mg Q6HP PRN PO 10/18/24 07:30 Nitroglycerin 0.4 mg Q5MINP PRN SL 10/18/24 07:30 Ipratropium [place] 0.5 mg Q4HPRN PRN NEB 10/18/24 07:30 10/30/24 20:26 0.5 MG Albuterol 2.5 mg Q4HPRN PRN NEB 10/18/24 07:30 10/30/24 20:26 2.5 MG Levetiracetam 100 ml @ 400 mls/hr BID IV 10/18/24 10:00 10/31/24 22:01 400 MLS/HR Lorazepam 1 mg Q5MINP PRN IV 10/18/24 21:00 10/19/24 11:31 1 MG Enteral Nutritional Formula 1,000 ml 30ML/HR GT 10/20/24 10:15 10/30/24 11:23 1,000 ML Norepinephrine Bitartrate 250 ml @ 3.75 mls/hr Q24H IV 10/20/24 12:15 UNV Norepinephrine Bitartrate 250 ml @ 3.75 mls/hr Q24H IV 10/20/24 12:15 UNV Piperacillin Sod/ Tazobactam Sod 50 ml @ 12.5 mls/hr Q8HR IV 10/20/24 22:00 10/31/24 21:58 12.5 MLS/HR Pantoprazole Sodium 40 mg DAILY IV 10/21/24 10:00 10/31/24 10:39 40 MG Midazolam HCl 50 ml @ 1 mls/hr Q24H IV 10/20/24 12:45 Diagnostic Test (Pha) 1 strip ACHS 10/20/24 22:00 10/31/24 22:03 1 STRIP Insulin Human Regular ACHS SC 10/20/24 22:00 Dextrose 50 ml UD PRN IV 10/20/24 21:45 10/30/24 05:32 50 ML Vancomycin HCl 0 ml @ 0 mls/hr UD IV 10/21/24 12:00 Phenytoin Sodium 100 mg Q8HR IV 10/22/24 14:00 10/31/24 22:02 100 MG Nicardipine/ Sodium Chloride 200 ml @ 50 mls/hr Q4H IV 10/23/24 14:00 10/29/24 11:52 50 MLS/HR Metoprolol Tartrate 50 mg BID PO 10/24/24 12:15 10/31/24 22:03 50 MG Ondansetron HCl 4 mg Q6HPRN PRN IV 10/25/24 23:15 10/25/24 23:14 4 MG Potassium Chloride 100 ml @ 50 mls/hr Q2H IV 10/26/24 12:15 10/26/24 18:14 UNV Hydralazine HCl 50 mg Q8HR PO 10/28/24 14:00 10/31/24 22:03 50 MG objective The patient is well-nourished and well-developed with no distress. MENTAL STATUS: Subjective Speech and language: On BiPAP, CRANIAL NERVES: Pupils are equal round and reactive to light briskly, normal external eye movement, normal sensation and motor examination in the lateral trigeminal nerve distribution, no facial weakness. SENSATION: Okay to light touch and pinprick MOTOR: Normal tone in the upper and lower extremity. Normal muscle bulk. No fasciculations. She moves her arms. REFLEXES: Deep tendon reflexes are symmetrical. No pathological reflexes. CEREBELLAR/COORDINATION: Deferred GAIT/STATION: deferred. laboratory and microbiology Laboratory Tests 10/31/24 04:55 Test 10/31/24 04:55 Range/Units Serum Glucose 83 74-106 mg/dL Problem List Acute respiratory failure, improving Altered mental status, improving Metabolic encephalopathy Hypoxic encephalopathy ? Seizure activity on 10/19/24 Visual hallucination secondary to metabolic encephalopathy Seizure disorder, according to description she has Grand mal seizure Partial complex seizure End-stage renal failure on hemodialysis Assessment/Plan Monitoring Supportive treatment EEG ICU care Stabilize vitals Respiratory support/BiPAP Dilantin 100 mg IV Tid. Keppra 500 mg IV b.i.d. (ESRF) Ativan for seizure breakthrough Nephrology Re: Kidney failure DVT prophylaxis More recommendation per clinical course This medical document was created using an electronic medical record system with [employer] dictation system. Although this document has been carefully reviewed, there may still be some phonetic and typographical errors. These areas are purely typographical due to imperfections of the software programs, and do not reflect any compromise in the patient's medical care Prognosis poor Dietary Evaluation Review Comments: 1) Pro-stat 1 pk BID 2) Nephro-karl 1 tab daily 3) TF Nepro Carb Steady @ 25ml/hr along with current rate of propofol. TF @ goal volume along with Pro-stat & propofol provides 1381 kcal (100% energy needs) & 79gm protein (100% protein needs) Expected Outcomes/Goals: To meet >75% estimated needs Fu 2-3 days Plan discussed with: Other KIT GRISSOM MD Oct 31, 2024 23:38
[2024-11-01] VITALS (12 sets, daily range): BP systolic 136–166; BP diastolic 63–78; PULSE 64–80; RESP 18–22; TEMP 98–98.9; O2SAT 96–100
[2024-11-01] MEDS: hydrALAZINE HCL 20 MG/ML VL IV ONE (03:46)
[2024-11-01 06:31] LABS: Hematocrit 28.9 % (36.0-46.0); Hemoglobin 9.7 g/dL (12.2-16.2); Mean Corpuscular Hemoglobin 31.3 pg (28.0-32.0); Mean Corpuscular Hgb Conc. 33.5 g/dL (32.0-36.0); Mean Corpuscular Volume 93.4 fL (80.0-100.0); Platelet Count (auto) 246 10^3/uL (140-450); Red Cell Distribution Width 19.1 % (11.8-14.3); White Blood Cell 9.8 10^3/uL (4.4-10.8)
[2024-11-01 06:40] LABS: Anion Gap 10 (5-15); Carbon Dioxide 30 mmol/L (20-31); Chloride 100 mmol/L (98-107); Sodium 140 mmol/L (136-145)
[2024-11-01 06:41] LABS: Calcium 10.1 mg/dL (8.7-10.4)
[2024-11-01 06:46] LABS: BUN/Creatinine Ratio 2.8 (10.0-20.0); Blood Urea Nitrogen 10 mg/dL (9-23); Glucose 76 mg/dL (74-106)
[2024-11-01 06:47] LABS: Potassium 3.4 mmol/L (3.5-5.1)
[2024-11-01 06:49] LABS: Basophils % (manual) 0 (0.0-2.0); Blast Cells 0; Metamyelocytes % 0; Promyelocytes % 0; Reactive Lymphocytes 0
[2024-11-01 07:32] LABS: Band Neutrophils % (manual) 1; Eosinophils % (manual) 23 (0-7); Lymphocytes % (manual) 20 (10.0-50.0); Monocytes % (manual) 12 (0-12); Myelocytes % 1; Platelet Estimate Adequate
[2024-11-01] MEDS: VANCOMYCIN 500mg/100mL 100 ML IV ONE (13:47)
--- NOTE | 2024-11-01 14:10 | DVHPN2 ---
Progress Note Date Seen: Nov 01, 2024 Has the PT tested + for MRSA If YES, has PT been informed?: No Medical Necessity Reason Pt with a Central, PICC or Fol: No The following are medically ne: Ivey Catheter Reason for ivey catheter: Strict I&O Subjective Patient reports: No new complaints Review of Systems: HEENT:Normal, CVS:Normal, RESPIRATORY:Normal, GI:Normal, :Normal, MSK:Normal, NEURO:Normal Objective vital signs Vital Sign Date Time Temp Pulse Resp B/P (MAP) Pulse Ox O2 Delivery O2 Flow Rate FiO2 11/01/24 12:30 98.3 74 20 136/68 (90) 99 98.3 11/01/24 08:00 Nasal Cannula* 2 28 Total Intake and Output 10/31/24 10/31/24 11/01/24 15:00 23:00 07:00 Intake Total 392 ml 110 ml Balance 392 ml 110 ml medications Current Medications Medications Dose Ordered Sig/Maru Route Start Time Stop Time Status Last Admin Dose Admin Patient Own Medication 1 tab DAILY PO 10/18/24 10:00 UNV Sodium Chloride 10 ml Q8HR IV 10/18/24 14:00 11/01/24 13:47 10 ML Docusate Sodium 100 mg BIDPRN PRN PO 10/18/24 07:30 Acetaminophen 650 mg Q6HP PRN PO 10/18/24 07:30 Nitroglycerin 0.4 mg Q5MINP PRN SL 10/18/24 07:30 Ipratropium [place] 0.5 mg Q4HPRN PRN NEB 10/18/24 07:30 10/30/24 20:26 0.5 MG Albuterol 2.5 mg Q4HPRN PRN NEB 10/18/24 07:30 10/30/24 20:26 2.5 MG Levetiracetam 100 ml @ 400 mls/hr BID IV 10/18/24 10:00 11/01/24 09:22 400 MLS/HR Lorazepam 1 mg Q5MINP PRN IV 10/18/24 21:00 10/19/24 11:31 1 MG Enteral Nutritional Formula 1,000 ml 30ML/HR GT 10/20/24 10:15 10/30/24 11:23 1,000 ML Norepinephrine Bitartrate 250 ml @ 3.75 mls/hr Q24H IV 10/20/24 12:15 UNV Norepinephrine Bitartrate 250 ml @ 3.75 mls/hr Q24H IV 10/20/24 12:15 UNV Pantoprazole Sodium 40 mg DAILY IV 10/21/24 10:00 11/01/24 09:22 40 MG Diagnostic Test (Pha) 1 strip ACHS 10/20/24 22:00 11/01/24 11:05 1 STRIP Insulin Human Regular ACHS SC 10/20/24 22:00 Dextrose 50 ml UD PRN IV 10/20/24 21:45 10/30/24 05:32 50 ML Vancomycin HCl 0 ml @ 0 mls/hr UD IV 10/21/24 12:00 Phenytoin Sodium 100 mg Q8HR IV 10/22/24 14:00 11/01/24 13:47 100 MG Metoprolol Tartrate 50 mg BID PO 10/24/24 12:15 10/31/24 22:03 50 MG Ondansetron HCl 4 mg Q6HPRN PRN IV 10/25/24 23:15 10/25/24 23:14 4 MG Potassium Chloride 100 ml @ 50 mls/hr Q2H IV 10/26/24 12:15 10/26/24 18:14 UNV Hydralazine HCl 50 mg Q8HR PO 10/28/24 14:00 10/31/24 22:03 50 MG Examination: GENERAL:Normal, HEENT:Normal, NECK:Normal, LUNGS:Normal, CVS:Normal, ABDOMEN:Normal, MSK:Normal, SKIN:Normal, NEURO:Normal, :Normal laboratory and microbiology Laboratory Tests 11/01/24 05:46 Test 11/01/24 05:46 Range/Units Serum Glucose 76 74-106 mg/dL Microbiology Date/Time Source Procedure Growth Status 10/21/24 18:37 Blood Blood Culture - Final NO GROWTH AFTER 5 DAYS OF INCUBATION. Complete 10/20/24 15:00 Nose MRSA Screen - Final Complete 10/20/24 12:42 Sputum Gram Stain - Final Complete 10/20/24 12:42 Respiratory Culture - Final Klebsiella pneumoniae Citrobacter species Complete Problem List/Assessment/Plan Problem List/Assessment/Plan * Hypertensive emergency: off nicardipine drip, adjust meds * Rlhvt-[id number] diastolic heart failure: dialysis * Seizure disorder: neuro eval, on keppra, dilantin-check level * Severe pulmonary hypertension. * Severe tricuspid regurgitation. * COPD with exacerbation. * End-stage renal disease, on hemodialysis. * Chronic anemia. * Moderate protein malnutrition: tube feedings * Acute respiratory failure: on acv, cpap trial * pneumonia with shock /kcirhe-rsue-dn vanc, zosyn, cultures- gram positive/neg, on pressors * encephalopathy ? metabolic ?post ictal long dw sisters-explained plan of care advance care planning- full code- time spent 19 mins Plan discussed with: Patient My Orders My Orders Orders - BRANDIE SPENCE MD Procedure Category Date Status Time Vancomycin 500mg/100ml PHA 11/01/24 In Process 14:00 Vancomycin,Random LAB 11/02/24 Verified 04:00 Creatinine LAB 11/02/24 Verified 04:00 D/C Tlc MELLY 11/01/24 Verified 14:06 Levofloxacin Levaquin PHA 11/01/24 Verified 14:15 Pt Request For Service PT 11/01/24 Verified 14:06 Complete Blood Count LAB 11/02/24 Verified 06:00 Comprehensive LAB 11/02/24 Verified Metabolic Panel 06:00 Phenytoin (Dilantin) LAB 11/02/24 Verified 06:00 Chest Portable XY 11/02/24 Verified 06:00 Dietary Evaluation Review Comments: 1) Pro-stat 1 pk BID 2) Nephro-karl 1 tab daily 3) TF Nepro Carb Steady @ 25ml/hr along with current rate of propofol. TF @ goal volume along with Pro-stat & propofol provides 1381 kcal (100% energy needs) & 79gm protein (100% protein needs) Expected Outcomes/Goals: To meet >75% estimated needs Fu 2-3 days Date of Service: Nov 01, 2024 Billing Provider: BRANDIE SPENCE MD Common Visit Codes: [id number] INP/OBS CARE(HIGH) Secondary Visit Codes: [id number] CARE PLAN 30 MINUTES BRANDIE SPENCE MD Nov 01, 2024 14:10
[2024-11-01] MEDS: levoFLOXacin 500MG 100 ML IV SCH (15:22)
--- NOTE | 2024-11-01 18:23 | DVHPN2 ---
Progress Note - Dictate Date Seen: Nov 01, 2024 Has the PT tested + for MRSA If YES, has PT been informed?: No Medical Necessity Reason Pt with a Central, PICC or Fol: No The following are medically ne: Ivey Catheter Reason for ivey catheter: Strict I&O Subjective no new symptoms vital signs Vital Sign Date Time Temp Pulse Resp B/P (MAP) Pulse Ox O2 Delivery O2 Flow Rate FiO2 11/01/24 16:52 98.3 77 18 139/69 (92) 99 98.3 11/01/24 08:00 Nasal Cannula* 2 28 Total Intake and Output 10/31/24 10/31/24 11/01/24 15:00 23:00 07:00 Intake Total 392 ml 110 ml Balance 392 ml 110 ml medications Current Medications Medications Dose Ordered Sig/Maru Route Start Time Stop Time Status Last Admin Dose Admin Patient Own Medication 1 tab DAILY PO 10/18/24 10:00 UNV Sodium Chloride 10 ml Q8HR IV 10/18/24 14:00 11/01/24 13:47 10 ML Docusate Sodium 100 mg BIDPRN PRN PO 10/18/24 07:30 Acetaminophen 650 mg Q6HP PRN PO 10/18/24 07:30 Nitroglycerin 0.4 mg Q5MINP PRN SL 10/18/24 07:30 Ipratropium [place] 0.5 mg Q4HPRN PRN NEB 10/18/24 07:30 10/30/24 20:26 0.5 MG Albuterol 2.5 mg Q4HPRN PRN NEB 10/18/24 07:30 10/30/24 20:26 2.5 MG Levetiracetam 100 ml @ 400 mls/hr BID IV 10/18/24 10:00 11/01/24 09:22 400 MLS/HR Lorazepam 1 mg Q5MINP PRN IV 10/18/24 21:00 10/19/24 11:31 1 MG Norepinephrine Bitartrate 250 ml @ 3.75 mls/hr Q24H IV 10/20/24 12:15 UNV Norepinephrine Bitartrate 250 ml @ 3.75 mls/hr Q24H IV 10/20/24 12:15 UNV Pantoprazole Sodium 40 mg DAILY IV 10/21/24 10:00 11/01/24 09:22 40 MG Diagnostic Test (Pha) 1 strip ACHS 10/20/24 22:00 11/01/24 17:07 1 STRIP Insulin Human Regular ACHS SC 10/20/24 22:00 Dextrose 50 ml UD PRN IV 10/20/24 21:45 10/30/24 05:32 50 ML Metoprolol Tartrate 50 mg BID PO 10/24/24 12:15 10/31/24 22:03 50 MG Ondansetron HCl 4 mg Q6HPRN PRN IV 10/25/24 23:15 10/25/24 23:14 4 MG Potassium Chloride 100 ml @ 50 mls/hr Q2H IV 10/26/24 12:15 10/26/24 18:14 UNV Hydralazine HCl 50 mg Q8HR PO 10/28/24 14:00 10/31/24 22:03 50 MG Levofloxacin/ Dextrose 100 ml @ 100 mls/hr Q48H IV 11/01/24 14:15 11/01/24 15:22 100 MLS/HR Phenytoin Sodium 100 mg Q12H IV 11/02/24 02:00 objective HEENT: No oral lesions Pulmonary: Diminished lung sounds on auscultation bilaterally Cardiovascular S1-S2, no S3 or S4 Abdomen: Bowel sounds positive, soft no rebound tenderness Skin: No rash Neurological: Alert, Right forearm AV fistula laboratory and microbiology Laboratory Tests 11/01/24 05:46 Test 11/01/24 05:46 Range/Units Serum Glucose 76 74-106 mg/dL Assessment/Plan Assessment: 1. ESRD on hemodialysis 2. CHF, slightly overloaded 3. Hypertension 4. Seizure disorder 5. Severe pulmonary hypertension 6. COPD with exacerbation with superimposed pneumonia 7. Anemia of CKD 8. Metabolic encephalopathy 9. Hypoglycemia Plan: Next HD Friday Continue HD TTS IV antibiotics for pneumonia Patient is receiving Keppra Wean off oxygen as tolerated cardiology for management of pulmonary HTN Bennie as needed for goal hemoglobin 10-11 g per dL Dietary Evaluation Review Comments: 1) Pro-stat 1 pk BID 2) Nephro-karl 1 tab daily 3) TF Nepro Carb Steady @ 25ml/hr along with current rate of propofol. TF @ goal volume along with Pro-stat & propofol provides 1381 kcal (100% energy needs) & 79gm protein (100% protein needs) Expected Outcomes/Goals: To meet >75% estimated needs Fu 2-3 days Plan discussed with: Patient KEYLA VILLALBA MD Nov 01, 2024 18:23
--- NOTE | 2024-11-01 22:30 | DVHPN2 ---
Progress Note - Dictate Date Seen: Nov 01, 2024 Has the PT tested + for MRSA If YES, has PT been informed?: No Medical Necessity Reason Pt with a Central, PICC or Fol: No The following are medically ne: Ivey Catheter Reason for ivey catheter: Strict I&O Subjective Ms. Wright is a 68 years old female with a history of hypertension, end-stage renal failure on hemodialysis, seizure disorder, goes she was brought to the [facility] on 10/18/2024 with a chief complaint of SOB, ALOC. I saw her on 09/13/2024 for encephalopathy I have seen and examined the patient, I have talked to her nurse, she is doing fine, awake, oriented x3, she follows, PHARMACY INPUT APPRECIATED (SEE NURSE NOTE) No seizure Phenytoin, 09/13/2024: 4.9, 10/22/24: 11.3 (albumin: 2.9), 10/24/2024: 13.6, 10/26/2024: 15.7, 10/27/2024: 13.4, 10/28/2024: 13.9, 10/31/2024: 16.5 (alb: 3) WBC/HB/PLT/MCV, 09/12/2024: 4/9.9/160/86.7, 10/18/2024: 7.4/9.2/304/93.6 BUN/CR, 09/12/2024: 28/6.37, 10/18/2024: 29/7.25, 10/19/2024: 35/8.25 GFR, 10/19/2024: 5 TBI/AST/ALT/AP, 09/12/2024: 0.6/67/30/143 Lactic acid, 10/18/24: 1 TSH, 09/13/2024: 2.01 EEG, 09/14/24: A moderately abnormal EEG Chest x-ray, 09/11/2024: 1. Moderately severe cardiomegaly 2. Moderate bilateral interstitial changes CT head, 09/12/2024: 1. No acute intracranial hemorrhage 2. No CT findings of territorial ischemia CT head, 10/18/2024: 1. Generalized brain atrophy. 2. Small vessel ischemic/degenerative changes. 3. No acute intracranial hemorrhage, midline shift or mass effect. If symptoms persist, further evaluation with MRI is recommended. MRI head, 09/19/2024: No acute infarct, intracranial hemorrhage, mass effect, or hydrocephalus MRI head, 10/18/2024: No evidence of acute infarction, intracranial hemorrhage, mass effect or hydrocephalus. Moderate changes of chronic microvascular ischemic disease. vital signs Vital Sign Date Time Temp Pulse Resp B/P (MAP) Pulse Ox O2 Delivery O2 Flow Rate FiO2 11/01/24 21:00 98.6 64 19 137/70 (92) 100 98.6 11/01/24 19:12 Nasal Cannula 2.0 11/01/24 19:12 28 Total Intake and Output 10/31/24 10/31/24 11/01/24 15:00 23:00 07:00 Intake Total 392 ml 110 ml Balance 392 ml 110 ml medications Current Medications Medications Dose Ordered Sig/Maru Route Start Time Stop Time Status Last Admin Dose Admin Patient Own Medication 1 tab DAILY PO 10/18/24 10:00 UNV Sodium Chloride 10 ml Q8HR IV 10/18/24 14:00 11/01/24 21:42 10 ML Docusate Sodium 100 mg BIDPRN PRN PO 10/18/24 07:30 Acetaminophen 650 mg Q6HP PRN PO 10/18/24 07:30 Nitroglycerin 0.4 mg Q5MINP PRN SL 10/18/24 07:30 Ipratropium [place] 0.5 mg Q4HPRN PRN NEB 10/18/24 07:30 10/30/24 20:26 0.5 MG Albuterol 2.5 mg Q4HPRN PRN NEB 10/18/24 07:30 10/30/24 20:26 2.5 MG Levetiracetam 100 ml @ 400 mls/hr BID IV 10/18/24 10:00 11/01/24 21:41 400 MLS/HR Lorazepam 1 mg Q5MINP PRN IV 10/18/24 21:00 10/19/24 11:31 1 MG Norepinephrine Bitartrate 250 ml @ 3.75 mls/hr Q24H IV 10/20/24 12:15 UNV Norepinephrine Bitartrate 250 ml @ 3.75 mls/hr Q24H IV 10/20/24 12:15 UNV Pantoprazole Sodium 40 mg DAILY IV 10/21/24 10:00 11/01/24 09:22 40 MG Diagnostic Test (Pha) 1 strip ACHS 10/20/24 22:00 11/01/24 21:44 1 STRIP Insulin Human Regular ACHS SC 10/20/24 22:00 Dextrose 50 ml UD PRN IV 10/20/24 21:45 10/30/24 05:32 50 ML Metoprolol Tartrate 50 mg BID PO 10/24/24 12:15 10/31/24 22:03 50 MG Ondansetron HCl 4 mg Q6HPRN PRN IV 10/25/24 23:15 10/25/24 23:14 4 MG Potassium Chloride 100 ml @ 50 mls/hr Q2H IV 10/26/24 12:15 10/26/24 18:14 UNV Hydralazine HCl 50 mg Q8HR PO 10/28/24 14:00 10/31/24 22:03 50 MG Levofloxacin/ Dextrose 100 ml @ 100 mls/hr Q48H IV 11/01/24 14:15 11/01/24 15:22 100 MLS/HR Phenytoin Sodium 100 mg Q12H IV 11/02/24 02:00 objective The patient is well-nourished and well-developed with no distress. MENTAL STATUS: Subjective Speech and language: On BiPAP, CRANIAL NERVES: Pupils are equal round and reactive to light briskly, normal external eye movement, normal sensation and motor examination in the lateral trigeminal nerve distribution, no facial weakness. SENSATION: Okay to light touch and pinprick MOTOR: Normal tone in the upper and lower extremity. Normal muscle bulk. No fasciculations. She moves her arms. REFLEXES: Deep tendon reflexes are symmetrical. No pathological reflexes. CEREBELLAR/COORDINATION: Deferred GAIT/STATION: deferred. laboratory and microbiology Laboratory Tests 11/01/24 05:46 Test 11/01/24 05:46 Range/Units Serum Glucose 76 74-106 mg/dL Problem List Acute respiratory failure, improving Altered mental status, improving Metabolic encephalopathy Hypoxic encephalopathy ? Seizure activity on 10/19/24 Visual hallucination secondary to metabolic encephalopathy Seizure disorder, according to description she has Grand mal seizure Partial complex seizure End-stage renal failure on hemodialysis Assessment/Plan Monitoring Supportive treatment EEG ICU care Stabilize vitals Respiratory support/BiPAP Dilantin 100 mg IV am, 150MG hs Keppra 500 mg IV b.i.d. (ESRF) Ativan for seizure breakthrough Nephrology Re: Kidney failure DVT prophylaxis More recommendation per clinical course This medical document was created using an electronic medical record system with [employer] dictation system. Although this document has been carefully reviewed, there may still be some phonetic and typographical errors. These areas are purely typographical due to imperfections of the software programs, and do not reflect any compromise in the patient's medical care Prognosis POOR Dietary Evaluation Review Comments: 1) Pro-stat 1 pk BID 2) Nephro-karl 1 tab daily 3) TF Nepro Carb Steady @ 25ml/hr along with current rate of propofol. TF @ goal volume along with Pro-stat & propofol provides 1381 kcal (100% energy needs) & 79gm protein (100% protein needs) Expected Outcomes/Goals: To meet >75% estimated needs Fu 2-3 days Plan discussed with: Other KIT GRISSOM MD Nov 01, 2024 22:30
[2024-11-01] MEDS: PHENYTOIN SODIUM 50 MG/ML 2ML VIAL IV SCH (23:19)
[2024-11-02] VITALS (15 sets, daily range): BP systolic 119–159; BP diastolic 65–89; PULSE 57–86; RESP 15–20; TEMP 97.4–98.7; O2SAT 89–100
[2024-11-02] MEDS ORDERED: PHENYTOIN SODIUM 50 MG/ML 2ML VIAL IV SCH (02:00)
--- NOTE | 2024-11-02 06:36 | DVH ---
EXAM: XR Chest, 1 View CLINICAL INDICATION: chf TECHNIQUE: Frontal view of the chest. COMPARISON: No relevant prior studies available. FINDINGS: LUNGS AND PLEURAL SPACES: See below. HEART: Cardiomegaly with mild congestion. MEDIASTINUM: Unremarkable. Normal mediastinal contour. BONES/JOINTS: Unremarkable. No acute fracture. OTHER FINDINGS: Comparison XY CHEST PORTABLE on DOS: 10/29/24, XY CHEST PORTABLE on DOS: 10/28/24, XY CHEST PORTABLE on DOS: 10/27/24, XY CHEST PORTABLE on DOS: 10/26/24, XY CHEST PORTABLE on DOS: 10/25/24 . IMPRESSION: Cardiomegaly with mild congestion. HS:Y
[2024-11-02] MEDS ORDERED: SODIUM CHL 0.9% 1000 ML BAG XX ONE (07:00)
--- NOTE | 2024-11-02 11:23 | DVHPN2 ---
Progress Note Date Seen: Nov 02, 2024 Has the PT tested + for MRSA If YES, has PT been informed?: No Medical Necessity Reason Pt with a Central, PICC or Fol: No Reason for ivey catheter: Strict I&O Subjective Patient reports: No new complaints Review of Systems: HEENT:Normal, CVS:Normal, RESPIRATORY:Normal, GI:Normal, :Normal, MSK:Normal, NEURO:Normal Objective vital signs Vital Sign Date Time Temp Pulse Resp B/P (MAP) Pulse Ox O2 Delivery O2 Flow Rate FiO2 11/02/24 10:50 77 20 100 11/02/24 10:47 1.0 24 11/02/24 10:45 Nasal Cannula* 11/02/24 10:00 139/79 11/02/24 09:00 97.4 97.4 Total Intake and Output 11/01/24 11/01/24 11/02/24 14:59 22:59 06:59 Intake Total 100 ml 0 ml Balance 100 ml 0 ml medications Current Medications Medications Dose Ordered Sig/Maru Route Start Time Stop Time Status Last Admin Dose Admin Patient Own Medication 1 tab DAILY PO 10/18/24 10:00 UNV Sodium Chloride 10 ml Q8HR IV 10/18/24 14:00 11/02/24 06:42 10 ML Docusate Sodium 100 mg BIDPRN PRN PO 10/18/24 07:30 Acetaminophen 650 mg Q6HP PRN PO 10/18/24 07:30 Nitroglycerin 0.4 mg Q5MINP PRN SL 10/18/24 07:30 Ipratropium [place] 0.5 mg Q4HPRN PRN NEB 10/18/24 07:30 11/02/24 10:40 0.5 MG Albuterol 2.5 mg Q4HPRN PRN NEB 10/18/24 07:30 11/02/24 10:40 2.5 MG Levetiracetam 100 ml @ 400 mls/hr BID IV 10/18/24 10:00 11/02/24 10:17 400 MLS/HR Lorazepam 1 mg Q5MINP PRN IV 10/18/24 21:00 10/19/24 11:31 1 MG Norepinephrine Bitartrate 250 ml @ 3.75 mls/hr Q24H IV 10/20/24 12:15 UNV Norepinephrine Bitartrate 250 ml @ 3.75 mls/hr Q24H IV 10/20/24 12:15 UNV Pantoprazole Sodium 40 mg DAILY IV 10/21/24 10:00 11/02/24 10:16 40 MG Diagnostic Test (Pha) 1 strip ACHS 10/20/24 22:00 11/02/24 06:42 1 STRIP Insulin Human Regular ACHS SC 10/20/24 22:00 Dextrose 50 ml UD PRN IV 10/20/24 21:45 11/02/24 06:42 50 ML Metoprolol Tartrate 50 mg BID PO 10/24/24 12:15 10/31/24 22:03 50 MG Ondansetron HCl 4 mg Q6HPRN PRN IV 10/25/24 23:15 10/25/24 23:14 4 MG Potassium Chloride 100 ml @ 50 mls/hr Q2H IV 10/26/24 12:15 10/26/24 18:14 UNV Hydralazine HCl 50 mg Q8HR PO 10/28/24 14:00 10/31/24 22:03 50 MG Levofloxacin/ Dextrose 100 ml @ 100 mls/hr Q48H IV 11/01/24 14:15 11/01/24 15:22 100 MLS/HR Phenytoin Sodium 100 mg QAM IV 11/01/24 22:30 11/02/24 06:52 100 MG Phenytoin Sodium 150 mg HS IV 11/02/24 22:00 Examination: GENERAL:Normal, HEENT:Normal, NECK:Normal, LUNGS:Normal, CVS:Normal, ABDOMEN:Normal, MSK:Normal, SKIN:Normal, NEURO:Normal, :Normal laboratory and microbiology Laboratory Tests 11/01/24 05:46 Test 11/01/24 05:46 Range/Units Serum Glucose 76 74-106 mg/dL Microbiology Date/Time Source Procedure Growth Status 10/21/24 18:37 Blood Blood Culture - Final NO GROWTH AFTER 5 DAYS OF INCUBATION. Complete 10/20/24 15:00 Nose MRSA Screen - Final Complete 10/20/24 12:42 Sputum Gram Stain - Final Complete 10/20/24 12:42 Respiratory Culture - Final Klebsiella pneumoniae Citrobacter species Complete Problem List/Assessment/Plan Problem List/Assessment/Plan * Hypertensive emergency: off nicardipine drip, adjust meds * [id number] diastolic heart failure: dialysis * Seizure disorder: neuro eval, on keppra, dilantin-check level * Severe pulmonary hypertension. * Severe tricuspid regurgitation. * COPD with exacerbation. * End-stage renal disease, on hemodialysis. * Chronic anemia. * Moderate protein malnutrition: swallow eval today * Acute respiratory failure: on acv, cpap trial * pneumonia with shock /septic-kleb levaquin * encephalopathy ? metabolic ?post ictal long dw sisters-explained plan of care advance care planning- full code- time spent 19 mins Plan discussed with: Patient My Orders My Orders Orders - BRANDIE SPENCE MD Procedure Category Date Status Time D/C Tlc MELLY 11/01/24 In Process 14:06 Levofloxacin 500mg PHA 11/01/24 In Process (Levaquin 500mg/ 100m 14:15 Pt Request For Service PT 11/01/24 Logged 14:06 Complete Blood Count LAB 11/02/24 Logged 06:00 Comprehensive LAB 11/02/24 Logged Metabolic Panel 06:00 Phenytoin (Dilantin) LAB 11/02/24 Logged 06:00 Chest Portable XY 11/02/24 Resulted 06:00 Apply Z-Guard MELLY 11/02/24 In Process 14:46 Dietary Evaluation Review Comments: 1) Pro-stat 1 pk BID 2) Nephro-karl 1 tab daily 3) TF Nepro Carb Steady @ 25ml/hr along with current rate of propofol. TF @ goal volume along with Pro-stat & propofol provides 1381 kcal (100% energy needs) & 79gm protein (100% protein needs) Expected Outcomes/Goals: To meet >75% estimated needs Fu 2-3 days Date of Service: Nov 02, 2024 Billing Provider: BRANDIE SPENCE MD Common Visit Codes: [id number] INP/OBS CARE(HIGH) BRANDIE SPENCE MD Nov 02, 2024 11:23
[2024-11-02] MEDS: D5W/SOD CHL 0.45% 1,000 ML IV SCH (14:39)
[2024-11-02 15:04] LABS: Alanine Aminotransferase 23 U/L (7-40); Calcium 9.6 mg/dL (8.7-10.4)
[2024-11-02 15:06] LABS: Albumin 3.2 g/dL (3.2-4.8); Alkaline Phosphatase 109 U/L (46-116); Anion Gap 7 (5-15); Aspartate Aminotransferase 60 U/L (<34); Bilirubin, Total 0.2 mg/dL (0.2-1.0); Blood Urea Nitrogen 5 mg/dL (9-23); Carbon Dioxide 34 mmol/L (20-31); Chloride 98 mmol/L (98-107); Glucose 76 mg/dL (74-106); Potassium 3.9 mmol/L (3.5-5.1); Sodium 139 mmol/L (136-145); Total Protein 8.4 g/dL (5.7-8.2)
--- NOTE | 2024-11-02 17:32 | DVHPN2 ---
Progress Note - Dictate Date Seen: Nov 02, 2024 Has the PT tested + for MRSA If YES, has PT been informed?: No Medical Necessity Reason Pt with a Central, PICC or Fol: No Reason for ivey catheter: Strict I&O Subjective no new symptoms vital signs Vital Sign Date Time Temp Pulse Resp B/P (MAP) Pulse Ox O2 Delivery O2 Flow Rate FiO2 11/02/24 17:00 97.6 84 18 159/83 (108) 100 97.6 11/02/24 10:47 1.0 24 11/02/24 10:45 Nasal Cannula* Total Intake and Output 11/01/24 11/01/24 11/02/24 15:00 23:00 07:00 Intake Total 100 ml 0 ml Balance 100 ml 0 ml medications Current Medications Medications Dose Ordered Sig/Maru Route Start Time Stop Time Status Last Admin Dose Admin Patient Own Medication 1 tab DAILY PO 10/18/24 10:00 UNV Sodium Chloride 10 ml Q8HR IV 10/18/24 14:00 11/02/24 06:42 10 ML Docusate Sodium 100 mg BIDPRN PRN PO 10/18/24 07:30 Acetaminophen 650 mg Q6HP PRN PO 10/18/24 07:30 Nitroglycerin 0.4 mg Q5MINP PRN SL 10/18/24 07:30 Ipratropium [place] 0.5 mg Q4HPRN PRN NEB 10/18/24 07:30 11/02/24 10:40 0.5 MG Albuterol 2.5 mg Q4HPRN PRN NEB 10/18/24 07:30 11/02/24 10:40 2.5 MG Levetiracetam 100 ml @ 400 mls/hr BID IV 10/18/24 10:00 11/02/24 10:17 400 MLS/HR Lorazepam 1 mg Q5MINP PRN IV 10/18/24 21:00 10/19/24 11:31 1 MG Norepinephrine Bitartrate 250 ml @ 3.75 mls/hr Q24H IV 10/20/24 12:15 UNV Norepinephrine Bitartrate 250 ml @ 3.75 mls/hr Q24H IV 10/20/24 12:15 UNV Pantoprazole Sodium 40 mg DAILY IV 10/21/24 10:00 11/02/24 10:16 40 MG Diagnostic Test (Pha) 1 strip ACHS 10/20/24 22:00 11/02/24 12:26 1 STRIP Insulin Human Regular ACHS SC 10/20/24 22:00 Dextrose 50 ml UD PRN IV 10/20/24 21:45 11/02/24 11:58 50 ML Metoprolol Tartrate 50 mg BID PO 10/24/24 12:15 10/31/24 22:03 50 MG Ondansetron HCl 4 mg Q6HPRN PRN IV 10/25/24 23:15 10/25/24 23:14 4 MG Potassium Chloride 100 ml @ 50 mls/hr Q2H IV 10/26/24 12:15 10/26/24 18:14 UNV Hydralazine HCl 50 mg Q8HR PO 10/28/24 14:00 11/02/24 15:37 50 MG Levofloxacin/ Dextrose 100 ml @ 100 mls/hr Q48H IV 11/01/24 14:15 11/01/24 15:22 100 MLS/HR Phenytoin Sodium 100 mg QAM IV 11/01/24 22:30 11/02/24 06:52 100 MG Phenytoin Sodium 150 mg HS IV 11/02/24 22:00 objective HEENT: No oral lesions Pulmonary: Diminished lung sounds on auscultation bilaterally Cardiovascular S1-S2, no S3 or S4 Abdomen: Bowel sounds positive, soft no rebound tenderness Skin: No rash Neurological: Alert, Right forearm AV fistula laboratory and microbiology Laboratory Tests 11/02/24 14:27 Test 11/02/24 14:27 Range/Units Serum Glucose 76 74-106 mg/dL Assessment/Plan Assessment: 1. ESRD on hemodialysis 2. CHF, slightly overloaded 3. Hypertension 4. Seizure disorder 5. Severe pulmonary hypertension 6. COPD with exacerbation with superimposed pneumonia 7. Anemia of CKD 8. Metabolic encephalopathy 9. Hypoglycemia Plan: HD today (Friday) Continue HD TTS IV antibiotics for pneumonia Patient is receiving Keppra Wean off oxygen as tolerated cardiology for management of pulmonary HTN Bennie as needed for goal hemoglobin 10-11 g per dL Dietary Evaluation Review Comments: 1) Pro-stat 1 pk BID 2) Nephro-karl 1 tab daily 3) TF Nepro Carb Steady @ 25ml/hr along with current rate of propofol. TF @ goal volume along with Pro-stat & propofol provides 1381 kcal (100% energy needs) & 79gm protein (100% protein needs) Expected Outcomes/Goals: To meet >75% estimated needs Fu 2-3 days Plan discussed with: Patient KEYLA VILLALBA MD Nov 02, 2024 17:32
[2024-11-02 19:02] LABS: Hematocrit 31.6 % (36.0-46.0); Hemoglobin 10.5 g/dL (12.2-16.2); Mean Corpuscular Hemoglobin 31.1 pg (28.0-32.0); Mean Corpuscular Hgb Conc. 33.4 g/dL (32.0-36.0); Mean Corpuscular Volume 93.1 fL (80.0-100.0); Platelet Count (auto) 251 10^3/uL (140-450); Red Blood Cells 3.39 10^6/uL (4.0-5.20); White Blood Cell 6.2 10^3/uL (4.4-10.8)
[2024-11-02 19:05] LABS: Band Neutrophils % (manual) 0; Basophils % (manual) 0 (0.0-2.0); Blast Cells 0; Metamyelocytes % 0; Myelocytes % 0; Promyelocytes % 0; Reactive Lymphocytes 0
[2024-11-02 19:43] LABS: Eosinophils % (manual) 20 (0-7); Lymphocytes % (manual) 14 (10.0-50.0); Monocytes % (manual) 15 (0-12); Platelet Estimate Adequate
[2024-11-02 19:44] LABS: Large Platelets FEW
[2024-11-02] MEDS: EPOETIN ALFA-EPBX 4,000 UNIT/ML VIAL SC ONE (21:53)
[2024-11-02] MEDS: PHENYTOIN SODIUM 50 MG/ML 2ML VIAL IV SCH (21:54)
--- NOTE | 2024-11-02 23:35 | DVHPN2 ---
Progress Note - Dictate Date Seen: Nov 02, 2024 Has the PT tested + for MRSA If YES, has PT been informed?: No Medical Necessity Reason Pt with a Central, PICC or Fol: No Reason for ivey catheter: Strict I&O Subjective Ms. Wright is a 68 years old female with a history of hypertension, end-stage renal failure on hemodialysis, seizure disorder, goes she was brought to the [facility] on 10/18/2024 with a chief complaint of SOB, ALOC. I saw her on 09/13/2024 for encephalopathy I have seen and examined the patient, I have talked to her nurse only sitter, she is doing fine, awake, oriented x3, she follows verbal commands, no new complaints, No seizure Phenytoin, 09/13/2024: 4.9, 10/22/24: 11.3 (albumin: 2.9), 10/24/2024: 13.6, 10/26/2024: 15.7, 10/27/2024: 13.4, 10/28/2024: 13.9, 10/31/2024: 16.5 (alb: 3),11/02/24:18.5 WBC/HB/PLT/MCV, 09/12/2024: 4/9.9/160/86.7, 10/18/2024: 7.4/9.2/304/93.6 BUN/CR, 09/12/2024: 28/6.37, 10/18/2024: 29/7.25, 10/19/2024: 35/8.25 GFR, 10/19/2024: 5 TBI/AST/ALT/AP, 09/12/2024: 0.6/67/30/143 Lactic acid, 10/18/24: 1 TSH, 09/13/2024: 2.01 EEG, 09/14/24: A moderately abnormal EEG Chest x-ray, 09/11/2024: 1. Moderately severe cardiomegaly 2. Moderate bilateral interstitial changes CT head, 09/12/2024: 1. No acute intracranial hemorrhage 2. No CT findings of territorial ischemia CT head, 10/18/2024: 1. Generalized brain atrophy. 2. Small vessel ischemic/degenerative changes. 3. No acute intracranial hemorrhage, midline shift or mass effect. If symptoms persist, further evaluation with MRI is recommended. MRI head, 09/19/2024: No acute infarct, intracranial hemorrhage, mass effect, or hydrocephalus MRI head, 10/18/2024: No evidence of acute infarction, intracranial hemorrhage, mass effect or hydrocephalus. Moderate changes of chronic microvascular ischemic disease. vital signs Vital Sign Date Time Temp Pulse Resp B/P (MAP) Pulse Ox O2 Delivery O2 Flow Rate FiO2 11/02/24 21:55 124/65 11/02/24 21:55 83 11/02/24 21:00 98.5 16 92 98.5 11/02/24 20:00 Nasal Cannula* 2 28 Total Intake and Output 11/01/24 11/01/24 11/02/24 15:00 23:00 07:00 Intake Total 100 ml 0 ml Balance 100 ml 0 ml medications Current Medications Medications Dose Ordered Sig/Maru Route Start Time Stop Time Status Last Admin Dose Admin Patient Own Medication 1 tab DAILY PO 10/18/24 10:00 UNV Sodium Chloride 10 ml Q8HR IV 10/18/24 14:00 11/02/24 21:54 10 ML Docusate Sodium 100 mg BIDPRN PRN PO 10/18/24 07:30 Acetaminophen 650 mg Q6HP PRN PO 10/18/24 07:30 Nitroglycerin 0.4 mg Q5MINP PRN SL 10/18/24 07:30 Ipratropium [place] 0.5 mg Q4HPRN PRN NEB 10/18/24 07:30 11/02/24 10:40 0.5 MG Albuterol 2.5 mg Q4HPRN PRN NEB 10/18/24 07:30 11/02/24 10:40 2.5 MG Levetiracetam 100 ml @ 400 mls/hr BID IV 10/18/24 10:00 11/02/24 21:54 400 MLS/HR Lorazepam 1 mg Q5MINP PRN IV 10/18/24 21:00 10/19/24 11:31 1 MG Norepinephrine Bitartrate 250 ml @ 3.75 mls/hr Q24H IV 10/20/24 12:15 UNV Norepinephrine Bitartrate 250 ml @ 3.75 mls/hr Q24H IV 10/20/24 12:15 UNV Pantoprazole Sodium 40 mg DAILY IV 10/21/24 10:00 11/02/24 10:16 40 MG Diagnostic Test (Pha) 1 strip ACHS 10/20/24 22:00 11/02/24 21:55 1 STRIP Insulin Human Regular ACHS SC 10/20/24 22:00 Dextrose 50 ml UD PRN IV 10/20/24 21:45 11/02/24 11:58 50 ML Metoprolol Tartrate 50 mg BID PO 10/24/24 12:15 11/02/24 21:55 50 MG Ondansetron HCl 4 mg Q6HPRN PRN IV 10/25/24 23:15 10/25/24 23:14 4 MG Potassium Chloride 100 ml @ 50 mls/hr Q2H IV 10/26/24 12:15 10/26/24 18:14 UNV Hydralazine HCl 50 mg Q8HR PO 10/28/24 14:00 11/02/24 21:55 50 MG Levofloxacin/ Dextrose 100 ml @ 100 mls/hr Q48H IV 11/01/24 14:15 11/01/24 15:22 100 MLS/HR Phenytoin Sodium 100 mg QAM IV 11/01/24 22:30 11/02/24 06:52 100 MG Phenytoin Sodium 150 mg HS IV 11/02/24 22:00 11/02/24 21:54 150 MG objective The patient is well-nourished and well-developed with no distress. MENTAL STATUS: Subjective Speech and language: No aphasia dysarthria CRANIAL NERVES: Pupils are equal round and reactive to light briskly, normal external eye movement, normal sensation and motor examination in the lateral trigeminal nerve distribution, no facial weakness. SENSATION: Okay to light touch and pinprick MOTOR: Normal tone in the upper and lower extremity. Normal muscle bulk. No fasciculations. She moves her arms and the legs, less in the left arm. REFLEXES: Deep tendon reflexes are symmetrical. No pathological reflexes. CEREBELLAR/COORDINATION: Deferred GAIT/STATION: deferred. laboratory and microbiology Laboratory Tests 11/02/24 18:42 11/02/24 14:27 Test 11/02/24 14:27 Range/Units Serum Glucose 76 74-106 mg/dL Problem List Acute respiratory failure, improving Altered mental status, improving Metabolic encephalopathy Hypoxic encephalopathy ? Seizure activity on 10/19/24 Visual hallucination secondary to metabolic encephalopathy Seizure disorder, according to description she has Grand mal seizure Partial complex seizure End-stage renal failure on hemodialysis Assessment/Plan Monitoring Supportive treatment ICU care Stabilize vitals Respiratory support/BiPAP Dilantin 100 mg IV am, 150MG hs Keppra 500 mg IV b.i.d. (ESRF) Ativan for seizure breakthrough Nephrology Re: Kidney failure DVT prophylaxis More recommendation per clinical course This medical document was created using an electronic medical record system with [employer] dictation system. Although this document has been carefully reviewed, there may still be some phonetic and typographical errors. These areas are purely typographical due to imperfections of the software programs, and do not reflect any compromise in the patient's medical care Prognosis poor Dietary Evaluation Review Comments: 1) Pro-stat 1 pk BID 2) Nephro-karl 1 tab daily 3) TF Nepro Carb Steady @ 25ml/hr along with current rate of propofol. TF @ goal volume along with Pro-stat & propofol provides 1381 kcal (100% energy needs) & 79gm protein (100% protein needs) Expected Outcomes/Goals: To meet >75% estimated needs Fu 2-3 days Plan discussed with: Other KIT GRISSOM MD Nov 02, 2024 23:35
[2024-11-03] VITALS (10 sets, daily range): BP systolic 112–149; BP diastolic 58–82; PULSE 62–69; RESP 16; TEMP 97.6–98.4; O2SAT 96–100
--- NOTE | 2024-11-03 12:56 | DVHPN2 ---
Progress Note Date Seen: Nov 03, 2024 Has the PT tested + for MRSA If YES, has PT been informed?: No Medical Necessity Reason Pt with a Central, PICC or Fol: No Reason for ivey catheter: Strict I&O Subjective Patient reports: No new complaints Review of Systems: HEENT:Normal, CVS:Normal, RESPIRATORY:Normal, GI:Normal, :Normal, MSK:Normal, NEURO:Normal Objective vital signs Vital Sign Date Time Temp Pulse Resp B/P (MAP) Pulse Ox O2 Delivery O2 Flow Rate FiO2 11/03/24 09:58 67 133/62 11/03/24 08:00 16 97 Nasal Cannula* 1 11/03/24 05:00 97.6 97.6 Total Intake and Output 11/02/24 11/02/24 11/03/24 15:00 23:00 07:00 Intake Total 100 ml 300 ml 30 ml Balance 100 ml 300 ml 30 ml medications Current Medications Medications Dose Ordered Sig/Maru Route Start Time Stop Time Status Last Admin Dose Admin Patient Own Medication 1 tab DAILY PO 10/18/24 10:00 UNV Sodium Chloride 10 ml Q8HR IV 10/18/24 14:00 11/03/24 06:31 10 ML Docusate Sodium 100 mg BIDPRN PRN PO 10/18/24 07:30 Acetaminophen 650 mg Q6HP PRN PO 10/18/24 07:30 Nitroglycerin 0.4 mg Q5MINP PRN SL 10/18/24 07:30 Ipratropium [place] 0.5 mg Q4HPRN PRN NEB 10/18/24 07:30 11/02/24 10:40 0.5 MG Albuterol 2.5 mg Q4HPRN PRN NEB 10/18/24 07:30 11/02/24 10:40 2.5 MG Levetiracetam 100 ml @ 400 mls/hr BID IV 10/18/24 10:00 11/03/24 09:55 400 MLS/HR Lorazepam 1 mg Q5MINP PRN IV 10/18/24 21:00 10/19/24 11:31 1 MG Norepinephrine Bitartrate 250 ml @ 3.75 mls/hr Q24H IV 10/20/24 12:15 UNV Norepinephrine Bitartrate 250 ml @ 3.75 mls/hr Q24H IV 10/20/24 12:15 UNV Pantoprazole Sodium 40 mg DAILY IV 10/21/24 10:00 11/03/24 09:52 40 MG Diagnostic Test (Pha) 1 strip ACHS 10/20/24 22:00 11/03/24 11:35 1 STRIP Insulin Human Regular ACHS SC 10/20/24 22:00 Dextrose 50 ml UD PRN IV 10/20/24 21:45 11/02/24 11:58 50 ML Metoprolol Tartrate 50 mg BID PO 10/24/24 12:15 11/03/24 09:58 50 MG Ondansetron HCl 4 mg Q6HPRN PRN IV 10/25/24 23:15 10/25/24 23:14 4 MG Potassium Chloride 100 ml @ 50 mls/hr Q2H IV 10/26/24 12:15 10/26/24 18:14 UNV Hydralazine HCl 50 mg Q8HR PO 10/28/24 14:00 11/03/24 06:31 50 MG Levofloxacin/ Dextrose 100 ml @ 100 mls/hr Q48H IV 11/01/24 14:15 11/01/24 15:22 100 MLS/HR Phenytoin Sodium 100 mg QAM IV 11/01/24 22:30 11/03/24 06:31 100 MG Phenytoin Sodium 150 mg HS IV 11/02/24 22:00 11/02/24 21:54 150 MG Enteral Nutritional Formula 240 ml TIDWM PO 11/03/24 18:00 UNV Examination: GENERAL:Normal, HEENT:Normal, NECK:Normal, LUNGS:Normal, CVS:Normal, ABDOMEN:Normal, MSK:Normal, SKIN:Normal, NEURO:Normal, :Normal laboratory and microbiology Laboratory Tests 11/02/24 18:42 11/02/24 14:27 Test 11/02/24 14:27 Range/Units Serum Glucose 76 74-106 mg/dL Microbiology Date/Time Source Procedure Growth Status 10/21/24 18:37 Blood Blood Culture - Final NO GROWTH AFTER 5 DAYS OF INCUBATION. Complete 10/20/24 15:00 Nose MRSA Screen - Final Complete 10/20/24 12:42 Sputum Gram Stain - Final Complete 10/20/24 12:42 Respiratory Culture - Final Klebsiella pneumoniae Citrobacter species Complete Problem List/Assessment/Plan Problem List/Assessment/Plan * Hypertensive emergency: off nicardipine drip, adjust meds * [id number] diastolic heart failure: dialysis * Seizure disorder: neuro eval, on keppra, dilantin-check level * Severe pulmonary hypertension. * Severe tricuspid regurgitation. * COPD with exacerbation. * End-stage renal disease, on hemodialysis. * Chronic anemia. * Moderate protein malnutrition: swallow eval today * Acute respiratory failure: on acv, cpap trial * pneumonia with shock /septic-kleb levaquin * encephalopathy ? metabolic ?post ictal long dw sisters-explained plan of care and dc plan advance care planning- full code- time spent 19 mins Plan discussed with: Other (sister) My Orders My Orders Orders - BRANDIE SPENCE MD Procedure Category Date Status Time * Dietary Consult CONS 11/02/24 Transmitted 13:51 Pureed DIET 11/03/24 Transmitted Lunch Nutritional PHA 11/03/24 Logged Supplements (Nepro 18:00 Dietary Evaluation Review Comments: 1) Pro-stat 1 pk BID 2) Nephro-karl 1 tab daily 3) TF Nepro Carb Steady @ 25ml/hr along with current rate of propofol. TF @ goal volume along with Pro-stat & propofol provides 1381 kcal (100% energy needs) & 79gm protein (100% protein needs) Expected Outcomes/Goals: To meet >75% estimated needs Fu 2-3 days Date of Service: Nov 03, 2024 Billing Provider: BRANDIE SPENCE MD Common Visit Codes: [id number] INP/OBS CARE(HIGH) BRANDIE SPENCE MD Nov 03, 2024 12:56
--- NOTE | 2024-11-03 16:34 | DVHPN2 ---
Progress Note - Dictate Date Seen: Nov 03, 2024 Has the PT tested + for MRSA If YES, has PT been informed?: No Medical Necessity Reason Pt with a Central, PICC or Fol: No Reason for ivey catheter: Strict I&O Subjective no new symptoms vital signs Vital Sign Date Time Temp Pulse Resp B/P (MAP) Pulse Ox O2 Delivery O2 Flow Rate FiO2 11/03/24 13:55 137/81 11/03/24 12:00 100 Nasal Cannula* 1 11/03/24 10:58 87 11/03/24 08:00 16 11/03/24 05:00 97.6 97.6 Total Intake and Output 11/02/24 11/02/24 11/03/24 15:00 23:00 07:00 Intake Total 100 ml 300 ml 30 ml Balance 100 ml 300 ml 30 ml medications Current Medications Medications Dose Ordered Sig/Maru Route Start Time Stop Time Status Last Admin Dose Admin Patient Own Medication 1 tab DAILY PO 10/18/24 10:00 UNV Sodium Chloride 10 ml Q8HR IV 10/18/24 14:00 11/03/24 06:31 10 ML Docusate Sodium 100 mg BIDPRN PRN PO 10/18/24 07:30 Acetaminophen 650 mg Q6HP PRN PO 10/18/24 07:30 Nitroglycerin 0.4 mg Q5MINP PRN SL 10/18/24 07:30 Ipratropium [place] 0.5 mg Q4HPRN PRN NEB 10/18/24 07:30 11/02/24 10:40 0.5 MG Albuterol 2.5 mg Q4HPRN PRN NEB 10/18/24 07:30 11/02/24 10:40 2.5 MG Lorazepam 1 mg Q5MINP PRN IV 10/18/24 21:00 10/19/24 11:31 1 MG Norepinephrine Bitartrate 250 ml @ 3.75 mls/hr Q24H IV 10/20/24 12:15 UNV Norepinephrine Bitartrate 250 ml @ 3.75 mls/hr Q24H IV 10/20/24 12:15 UNV Diagnostic Test (Pha) 1 strip ACHS 10/20/24 22:00 11/03/24 11:35 1 STRIP Insulin Human Regular ACHS SC 10/20/24 22:00 Dextrose 50 ml UD PRN IV 10/20/24 21:45 11/02/24 11:58 50 ML Metoprolol Tartrate 50 mg BID PO 10/24/24 12:15 11/03/24 09:58 50 MG Ondansetron HCl 4 mg Q6HPRN PRN IV 10/25/24 23:15 10/25/24 23:14 4 MG Potassium Chloride 100 ml @ 50 mls/hr Q2H IV 10/26/24 12:15 10/26/24 18:14 UNV Hydralazine HCl 50 mg Q8HR PO 10/28/24 14:00 11/03/24 13:55 50 MG Levofloxacin/ Dextrose 100 ml @ 100 mls/hr Q48H IV 11/01/24 14:15 11/03/24 13:54 100 MLS/HR Enteral Nutritional Formula 240 ml TIDWM PO 11/03/24 18:00 Levetiracetam 500 mg BID PO 11/03/24 22:00 Phenytoin Sodium 200 mg DAILY PO 11/04/24 10:00 Pantoprazole Sodium 40 mg DAILY@0600 PO 11/04/24 06:00 objective HEENT: No oral lesions Pulmonary: Diminished lung sounds on auscultation bilaterally Cardiovascular S1-S2, no S3 or S4 Abdomen: Bowel sounds positive, soft no rebound tenderness Skin: No rash Neurological: Alert, Right forearm AV fistula laboratory and microbiology Laboratory Tests 11/02/24 18:42 11/02/24 14:27 Test 11/02/24 14:27 Range/Units Serum Glucose 76 74-106 mg/dL Assessment/Plan Assessment: 1. ESRD on hemodialysis 2. CHF, slightly overloaded 3. Hypertension 4. Seizure disorder 5. Severe pulmonary hypertension 6. COPD with exacerbation with superimposed pneumonia 7. Anemia of CKD 8. Metabolic encephalopathy 9. Hypoglycemia Plan: s/p HD yesterday Next HD on Continue HD TTS IV antibiotics for pneumonia Patient is receiving Keppra Wean off oxygen as tolerated cardiology for management of pulmonary HTN Bennie as needed for goal hemoglobin 10-11 g per dL Dietary Evaluation Review Comments: 1) Pro-stat 1 pk BID 2) Nephro-karl 1 tab daily 3) TF Nepro Carb Steady @ 25ml/hr along with current rate of propofol. TF @ goal volume along with Pro-stat & propofol provides 1381 kcal (100% energy needs) & 79gm protein (100% protein needs) Expected Outcomes/Goals: To meet >75% estimated needs Fu 2-3 days Plan discussed with: Patient KEYLA VILLALBA MD Nov 03, 2024 16:34
[2024-11-03] MEDS: Nepro With Carbsteady ButterPecan 8oz Carton PO SCH (18:45)
[2024-11-03] MEDS: levETIRAcetam 500 MG TAB PO SCH (22:13)
[2024-11-04] VITALS (9 sets, daily range): BP systolic 96–150; BP diastolic 69–89; PULSE 63–84; RESP 18–99; TEMP 36.8; O2SAT 17–98
[2024-11-04] MEDS: PANTOPRAZOLE 40 MG TAB PO SCH (06:09)
--- NOTE | 2024-11-04 06:52 | DVHPN2 ---
Progress Note - Dictate Date Seen: Nov 04, 2024 Has the PT tested + for MRSA If YES, has PT been informed?: No Medical Necessity Reason Pt with a Central, PICC or Fol: No Reason for ivey catheter: Strict I&O Subjective no new symptoms vital signs Vital Sign Date Time Temp Pulse Resp B/P (MAP) Pulse Ox O2 Delivery O2 Flow Rate FiO2 11/04/24 06:10 150/81 11/04/24 05:00 98.4 64 18 94 98.4 11/03/24 22:16 Nasal Cannula* 1 24 Total Intake and Output 11/03/24 11/03/24 11/04/24 15:00 23:00 07:00 Intake Total 500 ml 118 ml 240 ml Balance 500 ml 118 ml 240 ml medications Current Medications Medications Dose Ordered Sig/Maru Route Start Time Stop Time Status Last Admin Dose Admin Patient Own Medication 1 tab DAILY PO 10/18/24 10:00 UNV Sodium Chloride 10 ml Q8HR IV 10/18/24 14:00 11/04/24 06:10 10 ML Docusate Sodium 100 mg BIDPRN PRN PO 10/18/24 07:30 Acetaminophen 650 mg Q6HP PRN PO 10/18/24 07:30 Nitroglycerin 0.4 mg Q5MINP PRN SL 10/18/24 07:30 Ipratropium [place] 0.5 mg Q4HPRN PRN NEB 10/18/24 07:30 11/02/24 10:40 0.5 MG Albuterol 2.5 mg Q4HPRN PRN NEB 10/18/24 07:30 11/02/24 10:40 2.5 MG Lorazepam 1 mg Q5MINP PRN IV 10/18/24 21:00 10/19/24 11:31 1 MG Norepinephrine Bitartrate 250 ml @ 3.75 mls/hr Q24H IV 10/20/24 12:15 UNV Norepinephrine Bitartrate 250 ml @ 3.75 mls/hr Q24H IV 10/20/24 12:15 UNV Diagnostic Test (Pha) 1 strip ACHS 10/20/24 22:00 11/04/24 06:28 1 STRIP Insulin Human Regular ACHS SC 10/20/24 22:00 Dextrose 50 ml UD PRN IV 10/20/24 21:45 11/02/24 11:58 50 ML Metoprolol Tartrate 50 mg BID PO 10/24/24 12:15 11/03/24 22:13 50 MG Ondansetron HCl 4 mg Q6HPRN PRN IV 10/25/24 23:15 10/25/24 23:14 4 MG Potassium Chloride 100 ml @ 50 mls/hr Q2H IV 10/26/24 12:15 10/26/24 18:14 UNV Hydralazine HCl 50 mg Q8HR PO 10/28/24 14:00 11/04/24 06:10 50 MG Levofloxacin/ Dextrose 100 ml @ 100 mls/hr Q48H IV 11/01/24 14:15 11/03/24 13:54 100 MLS/HR Enteral Nutritional Formula 240 ml TIDWM PO 11/03/24 18:00 11/03/24 18:45 240 ML Levetiracetam 500 mg BID PO 11/03/24 22:00 11/03/24 22:13 500 MG Phenytoin Sodium 200 mg DAILY PO 11/04/24 10:00 Pantoprazole Sodium 40 mg DAILY@0600 PO 11/04/24 06:00 11/04/24 06:09 40 MG objective HEENT: No oral lesions Pulmonary: Diminished lung sounds on auscultation bilaterally Cardiovascular S1-S2, no S3 or S4 Abdomen: Bowel sounds positive, soft no rebound tenderness Skin: No rash Neurological: Alert, Right forearm AV fistula laboratory and microbiology Laboratory Tests 11/02/24 18:42 11/02/24 14:27 Test 11/02/24 14:27 Range/Units Serum Glucose 76 74-106 mg/dL Assessment/Plan Assessment: 1. ESRD on hemodialysis 2. CHF, slightly overloaded 3. Hypertension 4. Seizure disorder 5. Severe pulmonary hypertension 6. COPD with exacerbation with superimposed pneumonia 7. Anemia of CKD 8. Metabolic encephalopathy 9. Hypoglycemia Plan: Scheduled for HD today- last Hd was on Friday Continue HD TTS IV antibiotics for pneumonia on Keppra 500 mg BID Bennie as needed for goal hemoglobin 10-11 g per dL Dietary Evaluation Review Comments: 1) Pro-stat 1 pk BID 2) Nephro-karl 1 tab daily 3) TF Nepro Carb Steady @ 25ml/hr along with current rate of propofol. TF @ goal volume along with Pro-stat & propofol provides 1381 kcal (100% energy needs) & 79gm protein (100% protein needs) Expected Outcomes/Goals: To meet >75% estimated needs Fu 2-3 days Plan discussed with: Patient KEYLA VILLALBA MD Nov 04, 2024 06:52
[2024-11-04] MEDS ORDERED: SODIUM CHL 0.9% 1000 ML BAG XX ONE (07:00)
--- NOTE | 2024-11-04 10:25 | DVHDS2 ---
Discharge Summary Date of Admission Oct 18, 2024 at 07:19 Date of Discharge: Nov 04, 2024 Labs/Diagnostic Data: Laboratory Results Test 11/04/24 06:07 11/02/24 18:42 11/02/24 14:27 10/31/24 07:13 POC Glucose 94 mg/dl (70-106) White Blood Count 6.2 10^3/uL (4.4-10.8) Red Blood Count 3.39 10^6/uL (4.0-5.20) Hemoglobin 10.5 g/dL (12.2-16.2) Hematocrit 31.6 % (36.0-46.0) Mean Corpuscular Volume 93.1 fL (80.0-100.0) Mean Corpuscular Hemoglobin 31.1 pg (28.0-32.0) Mean Corpuscular Hemoglobin Concent 33.4 g/dL (32.0-36.0) Red Cell Distribution Width 19.0 % (11.8-14.3) Platelet Count 251 10^3/uL (140-450) Mean Platelet Volume 8.1 fL (6.9-10.8) Neutrophils (%) (Auto) % (37.0-80.0) Lymphocytes (%) (Auto) % (10.0-50.0) Monocytes (%) (Auto) % (0.0-12.0) Eosinophils (%) (Auto) % (0.0-7.0) Basophils (%) (Auto) % (0.0-2.0) Neutrophils # (Auto) 10 ^3/uL (1.6-8.6) Lymphocytes # (Auto) 10 ^3/uL (0.4-5.4) Monocytes # (Auto) 10 ^3/uL (0-1.3) Differential Total Cells Counted 100.0 (100) Neutrophils % (Manual) 51 (37.0-80.0) Band Neutrophils % (Manual) 0 Lymphocytes % (Manual) 14 (10.0-50.0) Monocytes % (Manual) 15 (0-12) Eosinophils % (Manual) 20 (0-7) Basophils % (Manual) 0 (0.0-2.0) Metamyelocytes % (manual) 0 Myelocytes % (Manual) 0 Promyelocytes % (Manual) 0 Blast Cells % (Manual) 0 Reactive Lymphocytes 0 Platelet Estimate Adequate Large Platelets Few Sodium Level 139 mmol/L (136-145) Potassium Level 3.9 mmol/L (3.5-5.1) Chloride Level 98 mmol/L (98-107) Carbon Dioxide Level 34 mmol/L (20-31) Anion Gap 7 (5-15) Blood Urea Nitrogen 5 mg/dL (9-23) Creatinine 2.46 mg/dL (0.550-1.02) Glomerular Filtration Rate Calc 21 mL/min (>90) BUN/Creatinine Ratio 2.0 (10.0-20.0) Serum Glucose 76 mg/dL (74-106) Calcium Level 9.6 mg/dL (8.7-10.4) Total Bilirubin 0.2 mg/dL (0.2-1.0) Aspartate Amino Transferase (AST) 60 U/L (<34) Alanine Aminotransferase (ALT) 23 U/L (7-40) Alkaline Phosphatase 109 U/L (46-116) Total Protein 8.4 g/dL (5.7-8.2) Albumin 3.2 g/dL (3.2-4.8) Random Vancomycin Level 16.0 ug/mL (5-10) Phenytoin (Dilantin) Level 18.5 ug/mL (10-20) Blood Gas Specimen Type Arterial Blood Gas Sample Site Arterial line Blood Gas Patient Temperature 37.0 Arterial Blood Date Drawn [id number] Arterial Blood pH 7.348 (7.350-7.450) Arterial Blood Partial Pressure CO2 51.3 mmHg (32.0-45.0) Arterial Blood Partial Pressure O2 131.4 mmHg (83.0-108.0) Arterial Blood HCO3 27.6 mmol/L (21.0-28.0) Arterial Blood Oxygen Saturation 98.4 % (94.0-98.0) Arterial Blood Base Excess 1.4 mmol/L (-2.0-3.0) Arterial Blood Oxyhemoglobin 97.5 % (94.0-98.0) Arterial Blood Carboxyhemoglobin 0.4 % (0.5-1.5) Arterial Blood Methemoglobin 0.5 % (0.0-1.5) [place] Test N/a Blood Gas Total Hemoglobin 10.30 g/dL (12.0-16.0) Blood Gas Liter Flow 2.00 Blood Gas Modality Nasal cannula FiO2 % 28.0 Test 6/21/25 06:52 10/30/24 05:30 10/29/24 18:24 10/29/24 15:28 Blood Gas Set Respiration Rate 12.0 Blood Gas EPAP 5 Blood Gas IPAP 15 Nucleated Red Blood Cells 1.0 % Smudge Cells 1 /100 WBC Blood Gas Spontaneous Rate 20 Blood Gas Spontaneous Tidal Volume 303 Blood Gas Critical Value Read Back Yes Blood Gas Notified Whom Blood Gas Notified Time [id number] Blood Gas Notified By Dagmar caro rt Test 10/29/24 08:40 10/28/24 10:44 10/27/24 05:47 10/26/24 05:01 Blood Gas Pressure Support 8 Blood Gas PEEP or CPAP 5.0 Blood Gas Tidal Volume 450.0 Magnesium Level 2.1 mg/dL (1.6-2.6) Eosinophils # (Auto) 0.9 10 ^3/uL (0-0.8) Basophils # (Auto) 0.1 10 ^3/uL (0-0.2) Iron Level 43 ug/dL (50-170) Total Iron Binding Capacity 163 ug/dL (250-425) Percent Iron Saturation 26.4 % (15-50) Ferritin 1429.3 ng/mL (10-291) Test 10/25/24 04:39 10/21/24 04:40 10/18/24 04:45 10/18/24 02:45 Phosphorus Level 5.7 mg/dL (2.4-5.1) Ammonia 13 umol/L (11-32) Hepatitis B Surface Antigen Negative (Negative) Influenza Type A Antigen Negative (Negative) Influenza Type B Antigen Negative (Negative) SARS-CoV-2 Antigen (Rapid) Negative (NEGATIVE) Lactic Acid Level 1.0 mmol/L (0.4-2.0) Troponin I High Sensitivity 13 ng/L (</=34) B-Type Natriuretic Peptide 572.54 pg/mL (0-100) Other Laboratory Tests 11/02/24 18:42 11/02/24 14:27 Brief Hx & Hospital Course: see dictated note Condition at Discharge: Fair Final Diagnosis/Problems List esrd [facility] Discharge Instruct/Medications Diet: Renal Activity: No Restrictions, As Tolerated Follow Up/Referral: fu with pcp/dialysis Medications: per jul Discharge Statement: "Patient was advised to return to the ER or call 911 if any headaches, dizziness, shortness of breath, chest pain, abdominal pain, bleeding, fevers, or worsening of medical condition. Patient was counseled about treatment plan, medications, possible side effects, patientverbalized understanding. All questions were answered to the best of my ability. This discharge took greater then 30 minutes in planning, reviewing documentation, counseling the patient, and discussing with other team members." ASSESSMENT ASSESSMENT Assessment esrd Date of Service: Nov 04, 2024 Billing Provider: BRANDIE SPENCE MD Common Visit Codes: [id number] DISCH DAY >30min BRANDIE SPENCE MD Nov 04, 2024 10:25
--- NOTE | 2024-11-04 10:33 | DVHPN2 ---
Progress Note - Dictate Date Seen: Nov 04, 2024 Has the PT tested + for MRSA If YES, has PT been informed?: No Medical Necessity Reason Pt with a Central, PICC or Fol: No Reason for ivey catheter: Strict I&O Subjective Ms. Wright is a 68 years old female with a history of hypertension, end-stage renal failure on hemodialysis, seizure disorder, goes she was brought to the [facility] on 10/18/2024 with a chief complaint of SOB, ALOC. I saw her on 09/13/2024 for encephalopathy I have seen and examined the patient, I have talked to her nurse, she is doing fine, awake, oriented x3, she follows verbal commands, no new complaints, She tells me she can not walk No seizure Phenytoin, 09/13/2024: 4.9, 10/22/24: 11.3 (albumin: 2.9), 10/24/2024: 13.6, 10/26/2024: 15.7, 10/27/2024: 13.4, 10/28/2024: 13.9, 10/31/2024: 16.5 (alb: 3),11/02/24:18.5 WBC/HB/PLT/MCV, 09/12/2024: 4/9.9/160/86.7, 10/18/2024: 7.4/9.2/304/93.6 BUN/CR, 09/12/2024: 28/6.37, 10/18/2024: 29/7.25, 10/19/2024: 35/8.25 GFR, 10/19/2024: 5 TBI/AST/ALT/AP, 09/12/2024: 0.6/67/30/143 Lactic acid, 10/18/24: 1 TSH, 09/13/2024: 2.01 EEG, 09/14/24: A moderately abnormal EEG Chest x-ray, 09/11/2024: 1. Moderately severe cardiomegaly 2. Moderate bilateral interstitial changes CT head, 09/12/2024: 1. No acute intracranial hemorrhage 2. No CT findings of territorial ischemia CT head, 10/18/2024: 1. Generalized brain atrophy. 2. Small vessel ischemic/degenerative changes. 3. No acute intracranial hemorrhage, midline shift or mass effect. If symptoms persist, further evaluation with MRI is recommended. MRI head, 09/19/2024: No acute infarct, intracranial hemorrhage, mass effect, or hydrocephalus MRI head, 10/18/2024: No evidence of acute infarction, intracranial hemorrhage, mass effect or hydrocephalus. Moderate changes of chronic microvascular ischemic disease. vital signs Vital Sign Date Time Temp Pulse Resp B/P (MAP) Pulse Ox O2 Delivery O2 Flow Rate FiO2 11/04/24 08:59 98.9 70 18 148/86 (106) 98 98.9 11/04/24 06:53 Nasal Cannula* 1 24 Total Intake and Output 11/03/24 11/03/24 11/04/24 15:00 23:00 07:00 Intake Total 500 ml 118 ml 240 ml Balance 500 ml 118 ml 240 ml medications Current Medications Medications Dose Ordered Sig/Maru Route Start Time Stop Time Status Last Admin Dose Admin Patient Own Medication 1 tab DAILY PO 10/18/24 10:00 UNV Sodium Chloride 10 ml Q8HR IV 10/18/24 14:00 11/04/24 06:10 10 ML Docusate Sodium 100 mg BIDPRN PRN PO 10/18/24 07:30 Acetaminophen 650 mg Q6HP PRN PO 10/18/24 07:30 Nitroglycerin 0.4 mg Q5MINP PRN SL 10/18/24 07:30 Ipratropium Wagner 0.5 mg Q4HPRN PRN NEB 10/18/24 07:30 11/02/24 10:40 0.5 MG Albuterol 2.5 mg Q4HPRN PRN NEB 10/18/24 07:30 11/02/24 10:40 2.5 MG Lorazepam 1 mg Q5MINP PRN IV 10/18/24 21:00 10/19/24 11:31 1 MG Norepinephrine Bitartrate 250 ml @ 3.75 mls/hr Q24H IV 10/20/24 12:15 UNV Norepinephrine Bitartrate 250 ml @ 3.75 mls/hr Q24H IV 10/20/24 12:15 UNV Diagnostic Test (Pha) 1 strip ACHS 10/20/24 22:00 11/04/24 06:28 1 STRIP Insulin Human Regular ACHS SC 10/20/24 22:00 Dextrose 50 ml UD PRN IV 10/20/24 21:45 11/02/24 11:58 50 ML Metoprolol Tartrate 50 mg BID PO 10/24/24 12:15 11/03/24 22:13 50 MG Ondansetron HCl 4 mg Q6HPRN PRN IV 10/25/24 23:15 10/25/24 23:14 4 MG Potassium Chloride 100 ml @ 50 mls/hr Q2H IV 10/26/24 12:15 10/26/24 18:14 UNV Hydralazine HCl 50 mg Q8HR PO 10/28/24 14:00 11/04/24 06:10 50 MG Levofloxacin/ Dextrose 100 ml @ 100 mls/hr Q48H IV 11/01/24 14:15 11/03/24 13:54 100 MLS/HR Enteral Nutritional Formula 240 ml TIDWM PO 11/03/24 18:00 11/03/24 18:45 240 ML Levetiracetam 500 mg BID PO 11/03/24 22:00 11/03/24 22:13 500 MG Phenytoin Sodium 200 mg DAILY PO 11/04/24 10:00 Pantoprazole Sodium 40 mg DAILY@0600 PO 11/04/24 06:00 11/04/24 06:09 40 MG objective The patient is well-nourished and well-developed with no distress. MENTAL STATUS: Subjective Speech and language: No aphasia dysarthria CRANIAL NERVES: Pupils are equal round and reactive to light briskly, normal external eye movement, normal sensation and motor examination in the lateral trigeminal nerve distribution, no facial weakness. SENSATION: Okay to light touch and pinprick MOTOR: Normal tone in the upper and lower extremity. Normal muscle bulk. No fasciculations. She moves her arms and the legs, less in the left arm. REFLEXES: Deep tendon reflexes are symmetrical. No pathological reflexes. CEREBELLAR/COORDINATION: Deferred GAIT/STATION: deferred. laboratory and microbiology Laboratory Tests 11/02/24 18:42 11/02/24 14:27 Test 11/02/24 14:27 Range/Units Serum Glucose 76 74-106 mg/dL Problem List Acute respiratory failure, improving Altered mental status, improving Metabolic encephalopathy Hypoxic encephalopathy ? Seizure activity on 10/19/24 Visual hallucination secondary to metabolic encephalopathy Seizure disorder, according to description she has Grand mal seizure Partial complex seizure End-stage renal failure on hemodialysis Assessment/Plan Monitoring Supportive treatment ICU care Stabilize vitals Respiratory support/BiPAP Dilantin 200 mg daily Keppra 500 mg IV b.i.d. (ESRF) Ativan for seizure breakthrough Nephrology Re: Kidney failure DVT prophylaxis More recommendation per clinical course This medical document was created using an electronic medical record system with [employer] dictation system. Although this document has been carefully reviewed, there may still be some phonetic and typographical errors. These areas are purely typographical due to imperfections of the software programs, and do not reflect any compromise in the patient's medical care Prognosis poor Dietary Evaluation Review Comments: 1) Pro-stat 1 pk BID 2) Nephro-karl 1 tab daily 3) TF Nepro Carb Steady @ 25ml/hr along with current rate of propofol. TF @ goal volume along with Pro-stat & propofol provides 1381 kcal (100% energy needs) & 79gm protein (100% protein needs) Expected Outcomes/Goals: To meet >75% estimated needs Fu 2-3 days Plan discussed with: Patient, Other KIT GRISSOM MD Nov 04, 2024 10:33
--- NOTE | 2024-11-04 10:39 | DVHDS ---
DATE OF DISCHARGE: 11/04/2024 HISTORY OF PRESENT ILLNESS: The patient is a 69-year-old lady who was admitted with a history of shortness of breath and confusion and has a history of COPD, seizure disorder, hypertension, end-stage renal disease on hemodialysis, CVA, and COPD. HOSPITAL COURSE: The patient was seen in Nephrology consult by Dr. Murphy. She was seen in Neurology consult by Dr. Waller. The patient had an EEG done that showed encephalopathy but no seizure activity. The patient had a brain MRI that showed no acute changes. The patient became increasingly agitated, requiring intubation and mechanical ventilation. The patient was then successfully extubated. Sputum cultures grew Klebsiella and Citrobacter. Blood cultures are negative. The patient will now be transferred to rehab as per family wishes. FINAL DIAGNOSES: * Acute respiratory failure. * Hypertensive emergency. * Acute on chronic diastolic heart failure. * Seizure disorder. * Severe pulmonary hypertension. * Severe tricuspid regurgitation. * COPD exacerbation. * End-stage renal disease, on hemodialysis. * Chronic anemia. * Moderate protein malnutrition. * Pneumonia with likely septic shock secondary to Klebsiella and Citrobacter. * Encephalopathy, likely metabolic. Time spent in discharge planning and review of plan with the patient and nursing and paperwork was 39 minutes. MD REJI Scales/EKT TID: [id number] RECEIPT: [id number]
[2024-11-04] MEDS: PHENYTOIN 100 MG/4 ML SUSP PO SCH (10:41)
[2024-11-04 13:19] LABS: Base Excess -1.8 mmol/L (-2.0-3.0)
== END 2024-11-04 18:30 | DRG 870 ==
LOC: EDBD 02:00 → ER 02:00 → OVERFLOW 07:19 → ICU CENTRL 10-20 13:37 → TELE-EAST 11-01 01:38
PROVIDERS: ADMIT Internal Medicine; ATTEND Internal Medicine
PROC: 5A1D70Z Performance of Urinary Filtration, Intermittent, Less than 6 Hours Per Day (ICD-10-PCS; 2024-10-19)
PROC: 5A1955Z Respiratory Ventilation, Greater than 96 Consecutive Hours (ICD-10-PCS; principal; 2024-10-20)
PROC: 0BH17EZ Insertion of Endotracheal Airway into Trachea, Via Natural or Artificial Opening (ICD-10-PCS; 2024-10-20)
PROC: 06HY33Z Insertion of Infusion Device into Lower Vein, Percutaneous Approach (ICD-10-PCS; 2024-10-20)
PROC: 04HY32Z Insertion of Monitoring Device into Lower Artery, Percutaneous Approach (ICD-10-PCS; 2024-10-21)
PROC: 5A1D70Z Performance of Urinary Filtration, Intermittent, Less than 6 Hours Per Day (ICD-10-PCS; 2024-10-21)
PROC: 5A1D70Z Performance of Urinary Filtration, Intermittent, Less than 6 Hours Per Day (ICD-10-PCS; 2024-10-25)
PROC: 5A1D70Z Performance of Urinary Filtration, Intermittent, Less than 6 Hours Per Day (ICD-10-PCS; 2024-10-26)
PROC: 5A1D70Z Performance of Urinary Filtration, Intermittent, Less than 6 Hours Per Day (ICD-10-PCS; 2024-10-28)
PROC: 5A09357 Assistance with Respiratory Ventilation, Less than 24 Consecutive Hours, Continuous Positive Airway Pressure (ICD-10-PCS; 2024-10-29)
PROC: 5A1D70Z Performance of Urinary Filtration, Intermittent, Less than 6 Hours Per Day (ICD-10-PCS; 2024-10-29)
PROC: 5A09357 Assistance with Respiratory Ventilation, Less than 24 Consecutive Hours, Continuous Positive Airway Pressure (ICD-10-PCS; 2024-10-31)
PROC: 5A1D70Z Performance of Urinary Filtration, Intermittent, Less than 6 Hours Per Day (ICD-10-PCS; 2024-10-31)
PROC: 5A1D70Z Performance of Urinary Filtration, Intermittent, Less than 6 Hours Per Day (ICD-10-PCS; 2024-11-02)
DX: A41.59 Other Gram-negative sepsis (principal); G93.41 Metabolic encephalopathy; I50.33 Acute on chronic diastolic (congestive) heart failure; N18.6 End stage renal disease; J15.0 Pneumonia due to Klebsiella pneumoniae; R65.21 Severe sepsis with septic shock; J96.21 Acute and chronic respiratory failure with hypoxia; I13.2 Hypertensive heart and chronic kidney disease with heart failure and with stage 5 chronic kidney disease, or end stage renal disease; I16.1 Hypertensive emergency; J44.1 Chronic obstructive pulmonary disease with (acute) exacerbation; E44.0 Moderate protein-calorie malnutrition; G93.1 Anoxic brain damage, not elsewhere classified; G40.209 Localization-related (focal) (partial) symptomatic epilepsy and epileptic syndromes with complex partial seizures, not intractable, without status epilepticus; J44.0 Chronic obstructive pulmonary disease with (acute) lower respiratory infection; G40.409 Other generalized epilepsy and epileptic syndromes, not intractable, without status epilepticus; I27.20 Pulmonary hypertension, unspecified; I07.1 Rheumatic tricuspid insufficiency; D63.1 Anemia in chronic kidney disease; F17.210 Nicotine dependence, cigarettes, uncomplicated; R44.1 Visual hallucinations; E16.2 Hypoglycemia, unspecified; Z99.2 Dependence on renal dialysis; Z79.899 Other long term (current) drug therapy; Z88.8 Allergy status to other drugs, medicaments and biological substances; Z83.3 Family history of diabetes mellitus; Z68.21 Body mass index [BMI] 21.0-21.9, adult; Z86.73 Personal history of transient ischemic attack (TIA), and cerebral infarction without residual deficits
CPT/HCPCS: 36415; 36556; 36600; 36620; 70450; 70551; 71045; 76937; 80048; 80053; 80185; 80202; 82140; 82565; 82728; 82805; 82962; 83540; 83550; 83605; 83735; 83880; 84100; 84132; 84484; 85007; 85025; 85027; 87040; 87070; 87077; 87081; 87186; 87205; 87340; 87426; 87804; 90935; 92610; 93005; 94002; 94003; 94640; 94660; 95819; 96365; 96375; 97116; 97163; 97530; G0378; J1642; J1756; J1956; J2470; J2543; J2704; J3480